=== PATIENT | male | born 1950 ===

== ENCOUNTER 2018-02-11 10:36 | Emergency (ER) | payer OTHER ==
[2018-02-11 10:36] VITALS: BMI 27.2
[2018-02-11 12:09] LABS: BASO % 0.4 % (0.0-2.0); EOS # 0.6 K/uL (0.0-0.7); EOS % 5.5 % (0.0-4.0); LYMPH % 19.4 % (20.0-40.0); MEAN CELL VOLUME 88.4 fL (80.0-94.0); MEAN CORPUSCULAR HEMOGLOBIN 29.9 pg (27.0-31.0); MEAN CORPUSCULAR HGB CONC 33.9 g/dL (33.0-37.0); MEAN PLATELET VOLUME 9.2 fL (7.2-11.7); MONO # 0.8 K/uL (0.0-0.8); MONO % 7.4 % (0.0-10.0); NEUT % 67.3 % (50.0-75.0); NRBC % 0.1 % (0.0-2.0); RBC 4.33 Mil/uL (4.40-5.90); WHITE BLOOD COUNT 10.5 K/uL (4.8-10.8)
[2018-02-11 12:11] LABS: SQUAMOUS EPITHIAL 1 /hpf (0-5); URINE BILIRUBIN NEGATIVE (NEGATIVE); URINE BLOOD 1+ (NEGATIVE); URINE CLARITY Clear (Clear); URINE COLOR Yellow (YELLOW); URINE GLUCOSE (UA) NORMAL (Normal); URINE LEUKOCYTE ESTERASE NEG Leu/uL (Negative); URINE PROTEIN NEGATIVE (NEGATIVE); URINE UROBILINOGEN NORMAL mg/dL (0.2-1.0)
[2018-02-11 12:23] LABS: ALB/GLOB RATIO 1.1 (1.0-2.1); ALBUMIN 3.8 g/dL (3.5-5.0); ALT/SGPT 23 U/L (21-72); AST/SGOT 24 U/L (17-59); BLOOD UREA NITROGEN 17 mg/dL (9-20); GFR NON-AFRICAN AMERICAN > 60; LIPASE 54 U/L (23-300)
[2018-02-11 12:50] VITALS: BP 149/95; PULSE 62; RESP 18; TEMP 98.4; O2SAT 98
--- NOTE | 2018-02-11 12:56 | RAD ---
Chest x-ray single frontal view HISTORY: Abdominal pain. Comparison: None available. FINDINGS: Biapical pleural thickening with upper lobe granulomatous changes. Prominent diffuse increased interstitial lung markings suggestive for edema and or infiltrate. Enlarged ectatic aorta. Cardiomegaly. Degenerative changes in the spine and shoulders. Impression: Biapical pleural thickening with upper lobe granulomatous changes. Prominent diffuse increased interstitial lung markings suggestive for edema and or infiltrate. Enlarged ectatic aorta. Cardiomegaly.
--- NOTE | 2018-02-11 13:35 | C.PDOC ---
History Of Present Illness 67 year old male, whose past medical history includes diabetes and hypertension, presents to the ED for evaluation of diffuse abdominal pain and diarrhea which began around 5 days ago. Patient states that anything he eats, goes right past him. Patient also reports intermittent cough for two months. Patient also reports generalized body aches, which are relieved after taking Ibuprofen. Patient denies fever, chills, nausea, vomiting, or past surgical history. Time Seen by Provider: 02/11/18 10:49 Chief Complaint (Nursing): Abdominal Pain History Per: Patient History/Exam Limitations: no limitations Onset/Duration Of Symptoms: Days (5) Current Symptoms Are (Timing): Still Present Location Of Pain/Discomfort: Diffuse Radiation Of Pain To:: None Quality Of Discomfort: "Pain" Associated Symptoms: Diarrhea. denies: Fever, Chills, Nausea, Vomiting Additional History Per: Patient Past Medical History Reviewed: Historical Data, Nursing Documentation, Vital Signs Vital Signs: Last Vital Signs Temp 98.4 F 02/11/18 12:49 Pulse 62 02/11/18 12:49 Resp 18 02/11/18 12:49 BP 149/95 H 02/11/18 12:49 Pulse Ox 98 02/11/18 12:49 - Medical History PMH: Benign Prostatic Hyperplasia, Diabetes, HTN Surgical History: No Surg Hx Family History: States: Unknown Family Hx - Social History Hx Tobacco Use: No Hx Alcohol Use: No Hx Substance Use: No - Immunization History Hx Tetanus Toxoid Vaccination: No Hx Influenza Vaccination: No Hx Pneumococcal Vaccination: No Review Of Systems Constitutional: Negative for: Fever, Chills Respiratory: Positive for: Cough Gastrointestinal: Positive for: Abdominal Pain (diffuse ), Diarrhea. Negative for: Nausea, Vomiting Musculoskeletal: Positive for: Other (generalized body aches ) Physical Exam - Physical Exam Appears: Non-toxic, No Acute Distress Skin: Normal Color, Warm, Dry Head: Atraumatic, Normacephalic Eye(s): bilateral: Normal Inspection Oral Mucosa: Moist Neck: Supple Chest: Symmetrical, No Deformity, No Tenderness Cardiovascular: Rhythm Regular, No Murmur Respiratory: Normal Breath Sounds, No Rales, No Rhonchi, No Wheezing Gastrointestinal/Abdominal: Soft, No Tenderness, No Guarding, No Rebound Extremity: Normal ROM, Capillary Refill (less than 2 seconds ) Neurological/Psych: Oriented x3, Normal Speech, Normal Cognition ED Course And Treatment - Laboratory Results Result Diagrams: 02/11/18 12:03 02/11/18 12:03 O2 Sat by Pulse Oximetry: 98 (on RA) Pulse Ox Interpretation: Normal - Other Rad CXR X-Ray: Viewed By Me, Read By Radiologist Interpretation: Chest x-ray single frontal view. HISTORY: Abdominal pain. Comparison: None available. FINDINGS: Biapical pleural thickening with upper lobe granulomatous changes. Prominent diffuse increased interstitial lung markings suggestive for edema and or infiltrate. Enlarged ectatic aorta. Cardiomegaly. Degenerative changes in the spine and shoulders. Impression: Biapical pleural thickening with upper lobe granulomatous changes. Prominent diffuse increased interstitial lung markings suggestive for edema and or infiltrate. Enlarged ectatic aorta. Cardiomegaly. Medical Decision Making Medical Decision Making: Progress: Bloodwork, urinalysis, CXR ordered and reviewed. On reassessment, patient is resting comfortably, showing no signs of distress and is stable for discharge. Patient is advised to fill his prescriptions and to follow up with clinic within 1-2 days for further evaluation. Advised to return to the ED if symptoms persist or worsen. Disposition - Disposition Referrals: [facility] [Outside] Disposition: HOME/ ROUTINE Disposition Time: 13:30 Condition: STABLE Additional Instructions: Follow up with the medical doctor within 1-2 days. Return if worsened. 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 - Scribe Statement The provider has reviewed the documentation as recorded by the Scribe (Kelsey Mejia) All medical record entries made by the Scribe were at my direction and personally dictated by me. I have reviewed the chart and agree that the record accurately reflects my personal performance of the history, physical exam, medical decision making, and the department course for this patient. I have also personally directed, reviewed, and agree with the discharge instructions and disposition.
== END 2018-02-11 13:46 | disposition home or self-care (01) ==
LOC: C.ER 10:36
DX: B34.9 Viral infection, unspecified (principal); R19.7 Diarrhea, unspecified

== ENCOUNTER 2018-03-19 11:32 | Inpatient (IN) | payer MEDICAID, OTHER ==
[2018-03-19 11:32] VITALS: BMI 27.2
[2018-03-19 12:15] LABS: BASO % 0.5 % (0.0-2.0); EOS # 0.4 K/uL (0.0-0.7); EOS % 5.5 % (0.0-4.0); HEMOGLOBIN 13.6 g/dL (12.0-18.0); LYMPH # 1.7 K/uL (1.0-4.3); LYMPH % 21.4 % (20.0-40.0); MEAN CELL VOLUME 89.6 fL (80.0-94.0); MEAN CORPUSCULAR HEMOGLOBIN 29.9 pg (27.0-31.0); MEAN CORPUSCULAR HGB CONC 33.4 g/dL (33.0-37.0); MEAN PLATELET VOLUME 8.9 fL (7.2-11.7); MONO # 0.4 K/uL (0.0-0.8); MONO % 5.6 % (0.0-10.0); NEUT # 5.3 K/uL (1.8-7.0); RBC 4.55 Mil/uL (4.40-5.90); RED CELL DISTRIBUTION WIDTH 13.6 % (11.5-14.5); WHITE BLOOD COUNT 7.8 K/uL (4.8-10.8)
[2018-03-19 12:27] LABS: ALB/GLOB RATIO 1.2 (1.0-2.1); ALBUMIN 4.2 g/dL (3.5-5.0); ALT/SGPT 14 U/L (21-72); AST/SGOT 20 U/L (17-59); BLOOD UREA NITROGEN 17 mg/dL (9-20); CALCIUM 9.1 mg/dl (8.6-10.4); GFR NON-AFRICAN AMERICAN > 60
[2018-03-19 12:39] LABS: CK-MB 1.43 ng/mL (0.0-3.38)
--- NOTE | 2018-03-19 12:50 | C.PDOC ---
History Of Present Illness 67yo male, with no past medical history, comes to ER reporting chest pain, cough, for the past 2 weeks. He also reports associated generalized weakness. Patient otherwise denies any fever, chills, headache, throat pain, abdominal kirk n, vomiting or diarrhea. No additional complaints. PMD: None <Nan Auguste - Last Filed: 03/19/18 17:57> History Per: Patient History/Exam Limitations: no limitations Onset/Duration Of Symptoms: Persistent (2 weeks) Current Symptoms Are (Timing): Still Present Quality: "Pain" Associated Symptoms: denies: Nausea, Dyspnea, Diaphoresis, Syncope Additional History Per: Patient <Nan Auguste - Last Filed: 03/19/18 17:57> <Dakotah Mathew - Last Filed: 03/20/18 02:01> Time Seen by Provider: 03/19/18 11:55 Chief Complaint (Nursing): Chest Pain Past Medical History Reviewed: Historical Data, Nursing Documentation, Vital Signs Vital Signs: Last Vital Signs Temp 97.5 F L 03/19/18 11:41 Pulse 74 03/19/18 11:41 Resp 20 03/19/18 11:41 BP 152/101 H 03/19/18 11:41 Pulse Ox 97 03/19/18 11:41 - Medical History PMH: Benign Prostatic Hyperplasia, Diabetes, HTN Surgical History: No Surg Hx Family History: States: No Known Family Hx - Social History Hx Tobacco Use: No Hx Alcohol Use: No Hx Substance Use: No - Immunization History Hx Tetanus Toxoid Vaccination: No Hx Influenza Vaccination: No Hx Pneumococcal Vaccination: No <Nan Auguste - Last Filed: 03/19/18 17:57> Vital Signs: Last Vital Signs Temp 98.2 F 03/19/18 17:11 Pulse 57 L 03/19/18 17:11 Resp 14 03/19/18 17:11 BP 148/84 03/19/18 17:11 Pulse Ox 97 03/19/18 17:59 <Dakotah Mathew - Last Filed: 03/20/18 02:01> Review Of Systems Except As Marked, All Systems Reviewed And Found Negative. Constitutional: Positive for: Malaise. Negative for: Fever, Chills Cardiovascular: Positive for: Chest Pain Respiratory: Positive for: Cough. Negative for: Shortness of Breath Gastrointestinal: Negative for: Nausea, Vomiting, Abdominal Pain Neurological: Negative for: Headache <Nan Auguste - Last Filed: 03/19/18 17:57> Physical Exam - Physical Exam Appears: Non-toxic, No Acute Distress Skin: Normal Color Head: Normacephalic Eye(s): bilateral: Normal Inspection Oral Mucosa: Moist Neck: Normal ROM Chest: Symmetrical Cardiovascular: Rhythm Regular Respiratory: Normal Breath Sounds, No Rales, No Rhonchi, No Wheezing Gastrointestinal/Abdominal: Normal Exam, Soft Extremity: Normal ROM Neurological/Psych: Oriented x3 <Nan Auguste - Last Filed: 03/19/18 17:57> ED Course And Treatment - Laboratory Results Result Diagrams: 03/19/18 12:10 03/19/18 12:10 O2 Sat by Pulse Oximetry: 97 (RA) Pulse Ox Interpretation: Normal - Other Rad CXR X-Ray: Read By Radiologist Interpretation: FINDINGS: LINES AND TUBES: None. LUNG AND PLEURA: The lungs are hyperinflated and there is peribronchial thickening with chronic changes in both lungs. There is diffuse interstitial thickening in the lungs there is linear atelectasis/scarring in the mid lungs. No pleural effusion or pneumothorax. There is biapical pleural thickening. HEART AND MEDIASTINUM: The heart is not enlarged. No aortic atherosclerotic calcification present. The hilar and mediastinal contours are within normal limits. SKELETAL STRUCTURES: The bony structures are within normal limits for the patient's age. There is an old fracture deformity in the left upper lateral thoracic ribs. VISUALIZED UPPER ABDOMEN: Normal. OTHER FINDINGS: None. IMPRESSION: Diffuse interstitial thickening in the lungs which may represent acute interstitial pneumonitis, lymphangitis carcinomatosis or nonspecific interstitial lung disease. Background of COPD. - CT Scan/US CT chest Other Rad Studies (CT/US): Read By Radiologist, Radiology Report Reviewed CT/US Interpretation: Accession No. : [id number]. Patient Name / ID : UMU MALHOTRA / [id number]. Exam Date : 03/19/2018 14:45:06 ( Approved ). Study Comment : Sex / Age : M / 67Y. Creator : Dian Woodard. Dictator : Tran Duffy MD. Physician Intensivist : Children'S Aide : Tran Duffy MD. Approver2 : Report Date : 03/19/2018 15:10:26. My Comment : . Date of service: 03/19/2018. PROCEDURE: CT Chest with contrast. HISTORY: congestion/pain/abnormal CXR. COMPARISON: 02/04/2017, 11/11/2016 and 03/02/2015. TECHNIQUE: Contiguous axial images were obtained through the chest with intravenous contrast enhancement. Sagittal and coronal reconstructions were performed. IV contrast: 100 mL Visipaque 320. Radiation dose: Total exam DLP = 484.66 mGy-cm. This CT exam was performed using one or more of the following dose reduction techniques: Automated exposure control, adjustment of the mA and/or kV according to patient size, and/or use of iterative reconstruction technique. FINDINGS: LUNGS: There is a stable 6 mm subpleural nodule in the left upper lobe (series 3, image 41). There are low lung volumes. There is centrilobular emphysema in the upper lobes. There is ground-glass opacity in both lungs and peripheral architectural distortion with peripheral reticular opacities and honeycombing in the peripheral left upper lobe. There are large bullous changes in the left lung base. There is coarse large calcification in the left lower lobe and small calcified granulomas more medially in the left lower lobe. There is interval resolution of spiculated area in the lingula likely focal atelectasis.. MEDIASTINUM: Unremarkable thoracic aorta. No aneurysm or dissection. There is mild cardiomegaly. Main pulmonary artery unremarkable. No vascular congestion. Subcentimeter mediastinal lymph nodes are likely reactive in etiology.. No aortic atherosclerotic calcification or mural plaque present. PLEURA: No pleural fluid. No pneumothorax. BONES: No fracture. No destructive lesion. UPPER ABDOMEN: Grossly unremarkable. OTHER FINDINGS: None. IMPRESSION: Redemonstration of stable findings in the lungs most compatible with centrilobular emphysema in the upper lobes with component of pulmonary fibrosis. No acute findings Progress Note: Labs, EKG and CXR ordered. 1344: CXR reviewed with abnormal findings, CT Chest ordered. Case was d/w Hospitalist concrete hopper operator who accepted patient to [place] for observation. <Nan Auguste - Last Filed: 03/19/18 17:57> - Laboratory Results Result Diagrams: 03/19/18 21:03 03/19/18 21:03 <PriyankaDakotah - Last Filed: 03/20/18 02:01> Critical Care Time - Critical Care Note Total Time (in mins): 45 Documented critical care: time excludes all time spent performing seperately billable procedures. <PriyankaDakotah - Last Filed: 03/20/18 02:01> Medical Decision Making Medical Decision Makin Provider called to bedside while compressions in progress. Patient intubated successfully; good air entry bilaterally post-intubation. ACLS protocol followed, patient given 3 doses of epinephrine, and 300mg of Amio dorone. After 3rd dose of Epinephrine V-fib was noted and with 200J defibrilation, pulse was regained with good cardiac wall motion on bedside US. Bedside CXR ordered. EKG ordered, patient placed on ventilator. ABG ordered. Fentanyl for sedation ordered. EKG w/ Vtach: Amio drip reccomended to Medicine team: pt was given 300mg push during code. Dr. Dawson at bedside, and to reassume care of patient, ICU consult placed by medicine. 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 - Scribe Statement The provider has reviewed the documentation as recorded by the Blayne Stacy Provider Attestation: All medical record entries made by the Blayne were at my direction and personally dictated by me. I have reviewed the chart and agree that the record accurately reflects my personal performance of the history, physical exam, medical decision making, and the department course for this patient. I have also personally directed, reviewed, and agree with the discharge instructions and disposition. <Nan Auguste - Last Filed: 03/19/18 17:57> Decision To Admit - Pt Status Changed To: Hospital Disposition Of: Observation - . Bed Request Type: Regular Admitting Physician: Nora Blunt <Nan Auguste - Last Filed: 03/19/18 17:57> <Dakotah Mathew - Last Filed: 03/20/18 02:01> - . Patient Diagnosis: COPD (chronic obstructive pulmonary disease), Dyspnea Procedure: Intubation - Time Performed Time Performed: 18:37 - Time Out Time Out: Side verified, Site verified, Patient ID confirmed - Consent Obtained Consent obtained: Emergent consent implied - Performed By Performed by: Attending Physician - Indications Indication(s):: Cardiac arrest - Method Method:: Oral-Laryngoscopy - Rapid Sequence Intubation Anesthetic:: Other (none) - Tube type Tube type:: Endotracheal tube (7.5) Number of attempts:: 1 Depth measured at lip: cm: 24 - Confirmation Confirmation: Direct visual.of intubate, End-tidal CO2 positive, Bilat. breath sounds, No epigastric gurgle - Post-intubation CXR Post-intubation CXR: Tube in good position <Dakotah Mathew - Last Filed: 03/20/18 02:01>
--- NOTE | 2018-03-19 13:27 | RAD ---
Date of service: 03/19/2018 HISTORY: Chest pain COMPARISON: No prior. TECHNIQUE: Chest PA and lateral FINDINGS: LINES AND TUBES: None. LUNG AND PLEURA: The lungs are hyperinflated and there is peribronchial thickening with chronic changes in both lungs. There is diffuse interstitial thickening in the lungs there is linear atelectasis/scarring in the mid lungs. No pleural effusion or pneumothorax. There is biapical pleural thickening. HEART AND MEDIASTINUM: The heart is not enlarged. No aortic atherosclerotic calcification present. The hilar and mediastinal contours are within normal limits. SKELETAL STRUCTURES: The bony structures are within normal limits for the patient's age. There is an old fracture deformity in the left upper lateral thoracic ribs. VISUALIZED UPPER ABDOMEN: Normal. OTHER FINDINGS: None. IMPRESSION: Diffuse interstitial thickening in the lungs which may represent acute interstitial pneumonitis, lymphangitis carcinomatosis or nonspecific interstitial lung disease. Background of COPD.
[2018-03-19] MEDS ORDERED: Albuterol-Ipratrop 3 mg / 0.5 (3 ml) UD IH STA (13:45)
[2018-03-19] MEDS ORDERED: Albuterol 0.083% Inhal Sol (2.5 mg/3 mL) UD INH STA (13:45)
[2018-03-19] MEDS ORDERED: Iodixanol 320 MG/ML 100 ML BOTTLE IV ONE (14:15)
--- NOTE | 2018-03-19 17:03 | CT ---
Date of service: 03/19/2018 PROCEDURE: CT Chest with contrast HISTORY: congestion/pain/abnormal CXR COMPARISON: 02/04/2017, 11/11/2016 and 03/02/2015. TECHNIQUE: Contiguous axial images were obtained through the chest with intravenous contrast enhancement. Sagittal and coronal reconstructions were performed. IV contrast: 100 mL Visipaque 320 Radiation dose: Total exam DLP = 484.66 mGy-cm. This CT exam was performed using one or more of the following dose reduction techniques: Automated exposure control, adjustment of the mA and/or kV according to patient size, and/or use of iterative reconstruction technique. FINDINGS: LUNGS: There is a stable 6 mm subpleural nodule in the left upper lobe (series 3, image 41). There are low lung volumes. There is centrilobular emphysema in the upper lobes. There is ground-glass opacity in both lungs and peripheral architectural distortion with peripheral reticular opacities and honeycombing in the peripheral left upper lobe. There are large bullous changes in the left lung base. There is coarse large calcification in the left lower lobe and small calcified granulomas more medially in the left lower lobe. There is interval resolution of spiculated area in the lingula likely focal atelectasis.. MEDIASTINUM: Unremarkable thoracic aorta. No aneurysm or dissection. There is mild cardiomegaly. Main pulmonary artery unremarkable. No vascular congestion. Subcentimeter mediastinal lymph nodes are likely reactive in etiology.. No aortic atherosclerotic calcification or mural plaque present. PLEURA: No pleural fluid. No pneumothorax. BONES: No fracture. No destructive lesion. UPPER ABDOMEN: Grossly unremarkable. OTHER FINDINGS: None. IMPRESSION: Redemonstration of stable findings in the lungs most compatible with centrilobular emphysema in the upper lobes with component of pulmonary fibrosis. No acute findings.
[2018-03-19] MEDS ORDERED: Glucagon Recombinant 1 mg Inj IM PRN (18:30)
[2018-03-19] MEDS ORDERED: Dextrose 50% SYRINGE Inj (50 ml) IV PRN (18:30)
--- NOTE | 2018-03-19 18:37 | CP.PCM.HP ---
<Aleah Killian - Last Filed: 03/19/18 19:35> History of Present Illness - History of Present Illness History of Present Illness: cc: "I can't breath" Mr. Mejia is a 67 year old male PMH HTN, DM, pulm fibrosis came in for 2 months of SOB worsening over the last week. He would have come in sooner but only regained [facility] today. He is a known patient to the Clinic, but preferred to come to through the ED. Denies cough, fever, chills, nausea, vomiting, diarrhea. He can only exert himself for 2 blocks at a time and has SOB on exertion. After interview was over around 1820, patient status changed. Prior to transport to the med/surg floor, patient coded in the ED at 1837. He was noted to be a wide complex VTach before becoming pulseless and CPR initiated. He was shocked at 200, had 4 doses of epi, and 300 bolus of amiodarone. Patient admission switched to ICU. PMD: [facility] in the [facility] PMH: HTN, DM, pulm fibrosis Med: Metformin 500 po bid, Lisinopril 5mg po daily All: NKDA PSxHx: cystoscopy FamHx: denies SocHx: former smoker, chews tobacco. Social EtOH drinker, last drink New Years. Denies illicit drug use. Lives alone, all family in [facility]. Unable to hold job, currently not working. Present on Admission - Present on Admission Any Indicators Present on Admission: No Review of Systems - Constitutional Constitutional: absent: Chills, Excessive Sweating, Fatigue, Fever - EENT Eyes: absent: Blurred Vision, Diplopia, Requires Corrective Lenses Ears: absent: Decreased Hearing, Ear Discharge, Tinnitus Nose/Mouth/Throat: absent: Nasal Congestion, Nasal Trauma, Dysphagia, Odynophagia - Cardiovascular Cardiovascular: Dyspnea on Exertion. absent: Chest Pain, Chest Pain with Activity, Irregular Heart Rhythm, Lightheadedness, Palpitations, Syncope - Respiratory Respiratory: absent: Cough, Dyspnea, Wheezing - Gastrointestinal Gastrointestinal: absent: Bloating, Constipation, Diarrhea, Dyspepsia, Nausea, Odynophagia, Vomiting - Genitourinary Genitourinary: absent: Dysuria, Urinary Frequency, Urinary Hesitance - Musculoskeletal Musculoskeletal: absent: Atrophy, Muscle Cramps, Numbness, Stiffness, Tingling - Integumentary Integumentary: absent: Bleeding Lesions, Rash, Sores, Unusual Bruising - Neurological Neurological: absent: Confusion, Dizziness, Numbness, Headaches, Syncope, Tingling - Psychiatric Psychiatric: absent: Anxiety, Depression, Homicidal Ideation, Suicidal Ideation - Hematologic/Lymphatic Hematologic: absent: Easy Bleeding, Easy Bruising Past Patient History - Past Social History Smoking Status: Former Smoker Chewing Tobacco Use: Yes Alcohol: Social Drugs: Denies Home Situation {Lives}: Alone - CARDIAC Hx Hypertension: Yes - ENDOCRINE/METABOLIC Hx Endocrine Disorders: Yes Hx Diabetes Mellitus Type 2: Yes - GENITOURINARY/GYNECOLOGICAL Hx Genitourinary Disorders: Yes - PSYCHIATRIC Hx Substance Use: No - SURGICAL HISTORY Hx Surgeries: No - ANESTHESIA Hx Anesthesia: No Meds Allergies/Adverse Reactions: Allergies Allergy/AdvReac Type Severity Reaction Status Date / Time No Known Allergies Allergy Verified 12/12/15 11:59 Physical Exam - Constitutional Appears: Well, No Acute Distress, Chronically Ill - Head Exam Head Exam: ATRAUMATIC, NORMOCEPHALIC - Eye Exam Eye Exam: EOMI, Normal appearance, PERRL - ENT Exam ENT Exam: Mucous Membranes Moist - Neck Exam Neck exam: Negative for: Lymphadenopathy, Normal Inspection - Respiratory Exam Respiratory Exam: Decreased Breath Sounds, Clear to Auscultation Bilateral. absent: Accessory Muscle Use, Rales, Rhonchi, Wheezes - Cardiovascular Exam Cardiovascular Exam: REGULAR RHYTHM, +S1, +S2. absent: Gallop, Rubs, Systolic Murmur - GI/Abdominal Exam GI & Abdominal Exam: Normal Bowel Sounds, Soft. absent: Firm, Guarding, Rebound, Rigid, Tenderness - Extremities Exam Extremities exam: Positive for: normal capillary refill, pedal pulses present. Negative for: calf tenderness Additional comments: peripheral pulses palpable bilaterally (radial, PT) - Back Exam Back exam: absent: CVA tenderness (L), CVA tenderness (R) - Neurological Exam Neurological exam: Alert, CN II-XII Intact, Normal Gait, Oriented x3 - Psychiatric Exam Psychiatric exam: Normal Affect, Normal Mood - Skin Skin Exam: Dry, Intact, Normal Color, Warm Results - Vital Signs Recent Vital Signs: Last Vital Signs Temp 98.2 F 03/19/18 17:11 Pulse 57 L 03/19/18 17:11 Resp 14 03/19/18 17:11 BP 148/84 03/19/18 17:11 Pulse Ox 97 03/19/18 17:59 - Labs Result Diagrams: 03/19/18 12:10 03/19/18 12:10 Labs: Laboratory Results - last 24 hr 03/19/18 03/19/18 12:10 12:10 WBC 7.8 RBC 4.55 Hgb 13.6 Hct 40.7 MCV 89.6 MCH 29.9 MCHC 33.4 RDW 13.6 Plt Count 248 MPV 8.9 Neut % (Auto) 67.0 Lymph % (Auto) 21.4 Moca % (Auto) 5.6 Eos % (Auto) 5.5 H Baso % (Auto) 0.5 Neut # (Auto) 5.3 Lymph # (Auto) 1.7 Moca # (Auto) 0.4 Eos # (Auto) 0.4 Baso # (Auto) 0.0 Sodium 137 Potassium 4.4 Chloride 107 Carbon Dioxide 21 L Anion Gap 13 BUN 17 Creatinine 0.8 Est GFR ( Amer) > 60 Est GFR (Non-Af Amer) > 60 Random Glucose 107 Calcium 9.1 Total Bilirubin 0.3 AST 20 ALT 14 L D Alkaline Phosphatase 94 Total Creatine Kinase 55 CK-MB (Mass) 1.43 Troponin I < 0.0120 Total Protein 7.6 Albumin 4.2 Globulin 3.4 Albumin/Globulin Ratio 1.2 Assessment & Plan - Assessment and Plan (Free Text) Assessment: 67yo M PMH HTN, DM, pulm fibrosis, emphysema admitted for worsening SOB. Patient status declined and was a Code Blue in the ED. Admission moved to ICU. Plan: Cardiac Arrest ROSC achieved after about 20 minutes - Crit Care consulted: Dr. Gonzáles - Cardio consulted: Dr. Pizarro Bronchitis - patient complains of chronic pleuritic chest pain - hasn't followed up in the the Clinic since 03/2017 for pulm history issues Pulm Fibrosis - CXR (03/19): Diffuse interstitial thickening in the lungs which may represent acute interstitial pneumonitis, lymphangitis carcinomatosis or nonspecific interstitial lung disease. - CT Chest (03/19): Redemonstration of stable findings in the lungs most compatible with centrilobular emphysema in the upper lobes with component of pulmonary fibrosis. No acute findings. - Pulm consulted: Dr. Salazar Hypertension - held home Lisinopril 5mg po daily - monitor vitals Diabetes Mellitus - held home metformin 500mg po BID - Accuchecks q6 - ISS - hypoglycemia protocol PPx - DVT: held chemical AC, SCDs - GI: Protonix 40 IVP daily - Diet: NPO d/w Dr. Eunice Killian PGY-1 - Date & Time Date: 03/19/18 Time: 19:00 <Lynette Dawson - Last Filed: 03/20/18 16:26> Results - Vital Signs Recent Vital Signs: Last Vital Signs Temp 98.8 F 03/20/18 12:00 Pulse 68 03/20/18 14:52 Resp 22 03/20/18 14:52 BP 150/90 03/20/18 14:52 Pulse Ox 100 03/20/18 14:52 - Labs Result Diagrams: 03/20/18 05:49 03/20/18 05:49 Labs: Laboratory Results - last 24 hr 03/19/18 03/19/18 03/19/18 18:45 19:45 21:03 WBC RBC Hgb Hct MCV MCH MCHC RDW Plt Count MPV Neut % (Auto) Lymph % (Auto) Moca % (Auto) Eos % (Auto) Baso % (Auto) Neut # (Auto) Lymph # (Auto) Moca # (Auto) Eos # (Auto) Baso # (Auto) Neutrophils % (Manual) Band Neutrophils % Lymphocytes % (Manual) Monocytes % (Manual) Platelet Estimate Poikilocytosis (manual Ovalocytes ESR PT INR APTT Puncture Site Right radial pCO2 33 L pO2 259 H HCO3 8.5 L* ABG pH 7.03 L* ABG Total CO2 9.7 L ABG O2 Saturation 100.0 H ABG Base Excess -21.2 L Bran Test Na ABG Potassium A-a O2 Difference 413.0 Respiratory Index 1.6 Glucose Lactate Vent Mode Mechanical Rate FiO2 100.0 Tidal Volume 500 PEEP 5 Crit Value Called To Er attending Crit Value Called By Eliazar Crit Value Read Back Y Blood Gas Notified Time 1904 Sodium 136 Potassium 4.1 Chloride 109 H Carbon Dioxide 15 L Anion Gap 16 BUN 16 Creatinine 1.0 Est GFR ( Amer) > 60 Est GFR (Non-Af Amer) > 60 POC Glucose (mg/dL) 83 Random Glucose 211 H D Calcium 8.2 L Phosphorus Magnesium Total Bilirubin 0.6 AST 170 H D ALT 122 H D Alkaline Phosphatase 100 Total Creatine Kinase 222 H CK-MB (Mass) 6.85 H Troponin I 1.2300 H* Total Protein 6.7 Albumin 3.6 Globulin 3.1 Albumin/Globulin Ratio 1.2 Triglycerides Cholesterol LDL Cholesterol Direct HDL Cholesterol TSH 3rd Generation Arterial Blood Potassium Urine Color Urine Clarity Urine pH Ur Specific Ona Urine Protein Urine Glucose (UA) Urine Ketones Urine Blood Urine Nitrate Urine Bilirubin Urine Urobilinogen Ur Leukocyte Esterase Urine RBC (Auto) Ur Squamous Epith Cells Urine Bacteria Urine Opiates Screen Urine Methadone Screen Ur Barbiturates Screen Ur Phencyclidine Scrn Ur Amphetamines Screen U Benzodiazepines Scrn U Oth Cocaine Metabols U Cannabinoids Screen Alcohol, Quantitative 03/19/18 03/19/18 03/20/18 21:03 22:49 00:00 WBC 24.6 H D RBC 4.33 L Hgb 12.5 Hct 39.5 MCV 91.0 MCH 28.8 MCHC 31.6 L RDW 14.1 Plt Count 246 MPV 8.8 Neut % (Auto) 80.9 H Lymph % (Auto) 14.2 L Moca % (Auto) 3.4 Eos % (Auto) 1.3 Baso % (Auto) 0.2 Neut # (Auto) 19.9 H Lymph # (Auto) 3.5 Moca # (Auto) 0.8 Eos # (Auto) 0.3 Baso # (Auto) 0.0 Neutrophils % (Manual) Band Neutrophils % Lymphocytes % (Manual) Monocytes % (Manual) Platelet Estimate Poikilocytosis (manual Ovalocytes ESR PT INR APTT Puncture Site Lr pCO2 30 L pO2 267 H HCO3 17.4 L ABG pH 7.31 L ABG Total CO2 16.0 L ABG O2 Saturation 99.9 H ABG Base Excess -9.8 L Bran Test Unable ABG Potassium 3.8 A-a O2 Difference 123.0 Respiratory Index 0.5 Glucose 225 H Lactate 1.4 Vent Mode Prvc Mechanical Rate 24 FiO2 60.0 Tidal Volume 500 PEEP 5 Crit Value Called To Crit Value Called By Crit Value Read Back Blood Gas Notified Time Sodium 138.0 Potassium Chloride 114.0 H Carbon Dioxide Anion Gap BUN Creatinine Est GFR ( Amer) Est GFR (Non-Af Amer) POC Glucose (mg/dL) 224 H Random Glucose Calcium Phosphorus Magnesium Total Bilirubin AST ALT Alkaline Phosphatase Total Creatine Kinase CK-MB (Mass) Troponin I Total Protein Albumin Globulin Albumin/Globulin Ratio Triglycerides Cholesterol LDL Cholesterol Direct HDL Cholesterol TSH 3rd Generation Arterial Blood Potassium 3.8 Urine Color Urine Clarity Urine pH Ur Specific Ona Urine Protein Urine Glucose (UA) Urine Ketones Urine Blood Urine Nitrate Urine Bilirubin Urine Urobilinogen Ur Leukocyte Esterase Urine RBC (Auto) Ur Squamous Epith Cells Urine Bacteria Urine Opiates Screen Urine Methadone Screen Ur Barbiturates Screen Ur Phencyclidine Scrn Ur Amphetamines Screen U Benzodiazepines Scrn U Oth Cocaine Metabols U Cannabinoids Screen Alcohol, Quantitative 03/20/18 03/20/18 03/20/18 04:35 05:26 05:49 WBC 14.8 H RBC 4.11 L Hgb 11.9 L Hct 37.2 MCV 90.6 MCH 28.8 MCHC 31.8 L RDW 14.0 Plt Count 199 MPV 8.6 Neut % (Auto) 89.4 H Lymph % (Auto) 5.3 L Moca % (Auto) 5.2 Eos % (Auto) 0.0 Baso % (Auto) 0.1 Neut # (Auto) 13.2 H Lymph # (Auto) 0.8 L Moca # (Auto) 0.8 Eos # (Auto) 0.0 Baso # (Auto) 0.0 Neutrophils % (Manual) 84 H Band Neutrophils % 5 H Lymphocytes % (Manual) 5 L Monocytes % (Manual) 6 Platelet Estimate Normal Poikilocytosis (manual Slight Ovalocytes Slight ESR 30 H PT INR APTT Puncture Site Rr pCO2 34 L pO2 115 H HCO3 17.7 L ABG pH 7.29 L ABG Total CO2 17.3 L ABG O2 Saturation 98.9 H ABG Base Excess -9.3 L Bran Test Pos ABG Potassium 3.7 A-a O2 Difference 128.0 Respiratory Index 1.1 Glucose 236 H Lactate 1.1 Vent Mode Prvc Mechanical Rate 24 FiO2 40.0 Tidal Volume 500 PEEP 5 Crit Value Called To Crit Value Called By Crit Value Read Back Blood Gas Notified Time Sodium 139.0 Potassium Chloride 113.0 H Carbon Dioxide Anion Gap BUN Creatinine Est GFR ( Amer) Est GFR (Non-Af Amer) POC Glucose (mg/dL) 239 H Random Glucose Calcium Phosphorus Magnesium Total Bilirubin AST ALT Alkaline Phosphatase Total Creatine Kinase CK-MB (Mass) Troponin I Total Protein Albumin Globulin Albumin/Globulin Ratio Triglycerides Cholesterol LDL Cholesterol Direct HDL Cholesterol TSH 3rd Generation Arterial Blood Potassium 3.7 Urine Color Urine Clarity Urine pH Ur Specific Ona Urine Protein Urine Glucose (UA) Urine Ketones Urine Blood Urine Nitrate Urine Bilirubin Urine Urobilinogen Ur Leukocyte Esterase Urine RBC (Auto) Ur Squamous Epith Cells Urine Bacteria Urine Opiates Screen Urine Methadone Screen Ur Barbiturates Screen Ur Phencyclidine Scrn Ur Amphetamines Screen U Benzodiazepines Scrn U Oth Cocaine Metabols U Cannabinoids Screen Alcohol, Quantitative 03/20/18 03/20/18 03/20/18 05:49 05:49 05:55 WBC RBC Hgb Hct MCV MCH MCHC RDW Plt Count MPV Neut % (Auto) Lymph % (Auto) Moca % (Auto) Eos % (Auto) Baso % (Auto) Neut # (Auto) Lymph # (Auto) Moca # (Auto) Eos # (Auto) Baso # (Auto) Neutrophils % (Manual) Band Neutrophils % Lymphocytes % (Manual) Monocytes % (Manual) Platelet Estimate Poikilocytosis (manual Ovalocytes ESR PT INR APTT Puncture Site pCO2 pO2 HCO3 ABG pH ABG Total CO2 ABG O2 Saturation ABG Base Excess Bran Test ABG Potassium A-a O2 Difference Respiratory Index Glucose Lactate Vent Mode Mechanical Rate FiO2 Tidal Volume PEEP Crit Value Called To Crit Value Called By Crit Value Read Back Blood Gas Notified Time Sodium 136 Potassium 4.0 Chloride 109 H Carbon Dioxide 16 L Anion Gap 15 BUN 23 H Creatinine 1.3 Est GFR ( Amer) > 60 Est GFR (Non-Af Amer) 55 POC Glucose (mg/dL) Random Glucose 232 H Calcium 8.2 L Phosphorus 3.1 Magnesium 1.7 Total Bilirubin 0.8 AST 146 H ALT 103 H Alkaline Phosphatase 95 Total Creatine Kinase 557 H CK-MB (Mass) 16.0 H Troponin I 11.9000 H* Total Protein 6.5 Albumin 3.6 Globulin 3.0 Albumin/Globulin Ratio 1.2 Triglycerides Cholesterol LDL Cholesterol Direct HDL Cholesterol TSH 3rd Generation Arterial Blood Potassium Urine Color Asmita Urine Clarity Hazy Urine pH 5.0 Ur Specific Ona 1.054 H Urine Protein 2+ H Urine Glucose (UA) 1+ H Urine Ketones Negative Urine Blood 1+ H Urine Nitrate Negative Urine Bilirubin Negative Urine Urobilinogen Normal Ur Leukocyte Esterase Neg Urine RBC (Auto) 74 H Ur Squamous Epith Cells 2 Urine Bacteria Occ H Urine Opiates Screen Urine Methadone Screen Ur Barbiturates Screen Ur Phencyclidine Scrn Ur Amphetamines Screen U Benzodiazepines Scrn U Oth Cocaine Metabols U Cannabinoids Screen Alcohol, Quantitative 03/20/18 03/20/18 03/20/18 10:18 10:18 14:33 WBC RBC Hgb Hct MCV MCH MCHC RDW Plt Count MPV Neut % (Auto) Lymph % (Auto) Moca % (Auto) Eos % (Auto) Baso % (Auto) Neut # (Auto) Lymph # (Auto) Moca # (Auto) Eos # (Auto) Baso # (Auto) Neutrophils % (Manual) Band Neutrophils % Lymphocytes % (Manual) Monocytes % (Manual) Platelet Estimate Poikilocytosis (manual Ovalocytes ESR PT INR APTT Puncture Site pCO2 pO2 HCO3 ABG pH ABG Total CO2 ABG O2 Saturation ABG Base Excess Bran Test ABG Potassium A-a O2 Difference Respiratory Index Glucose Lactate Vent Mode Mechanical Rate FiO2 Tidal Volume PEEP Crit Value Called To Crit Value Called By Crit Value Read Back Blood Gas Notified Time Sodium Potassium Chloride Carbon Dioxide Anion Gap BUN Creatinine Est GFR ( Amer) Est GFR (Non-Af Amer) POC Glucose (mg/dL) Random Glucose Calcium Phosphorus Magnesium Total Bilirubin AST ALT Alkaline Phosphatase Total Creatine Kinase CK-MB (Mass) Troponin I 11.2000 H* Total Protein Albumin Globulin Albumin/Globulin Ratio Triglycerides 58 D Cholesterol 135 LDL Cholesterol Direct 91 HDL Cholesterol 31 TSH 3rd Generation 0.60 Arterial Blood Potassium Urine Color Urine Clarity Urine pH Ur Specific Ona Urine Protein Urine Glucose (UA) Urine Ketones Urine Blood Urine Nitrate Urine Bilirubin Urine Urobilinogen Ur Leukocyte Esterase Urine RBC (Auto) Ur Squamous Epith Cells Urine Bacteria Urine Opiates Screen Negative Urine Methadone Screen Negative Ur Barbiturates Screen Negative Ur Phencyclidine Scrn Negative Ur Amphetamines Screen Negative U Benzodiazepines Scrn Negative U Oth Cocaine Metabols Negative U Cannabinoids Screen Negative Alcohol, Quantitative < 10 03/20/18 15:08 WBC RBC Hgb Hct MCV MCH MCHC RDW Plt Count MPV Neut % (Auto) Lymph % (Auto) Moca % (Auto) Eos % (Auto) Baso % (Auto) Neut # (Auto) Lymph # (Auto) Moca # (Auto) Eos # (Auto) Baso # (Auto) Neutrophils % (Manual) Band Neutrophils % Lymphocytes % (Manual) Monocytes % (Manual) Platelet Estimate Poikilocytosis (manual Ovalocytes ESR PT 11.7 INR 1.1 APTT 32 Puncture Site pCO2 pO2 HCO3 ABG pH ABG Total CO2 ABG O2 Saturation ABG Base Excess Bran Test ABG Potassium A-a O2 Difference Respiratory Index Glucose Lactate Vent Mode Mechanical Rate FiO2 Tidal Volume PEEP Crit Value Called To Crit Value Called By Crit Value Read Back Blood Gas Notified Time Sodium Potassium Chloride Carbon Dioxide Anion Gap BUN Creatinine Est GFR ( Amer) Est GFR (Non-Af Amer) POC Glucose (mg/dL) Random Glucose Calcium Phosphorus Magnesium Total Bilirubin AST ALT Alkaline Phosphatase Total Creatine Kinase CK-MB (Mass) Troponin I Total Protein Albumin Globulin Albumin/Globulin Ratio Triglycerides Cholesterol LDL Cholesterol Direct HDL Cholesterol TSH 3rd Generation Arterial Blood Potassium Urine Color Urine Clarity Urine pH Ur Specific Ona Urine Protein Urine Glucose (UA) Urine Ketones Urine Blood Urine Nitrate Urine Bilirubin Urine Urobilinogen Ur Leukocyte Esterase Urine RBC (Auto) Ur Squamous Epith Cells Urine Bacteria Urine Opiates Screen Urine Methadone Screen Ur Barbiturates Screen Ur Phencyclidine Scrn Ur Amphetamines Screen U Benzodiazepines Scrn U Oth Cocaine Metabols U Cannabinoids Screen Alcohol, Quantitative Attending/Attestation - Attestation I have personally seen and examined this patient.: Yes I have fully participated in the care of the patient.: Yes I have reviewed all pertinent clinical information: Yes Notes (Text): This is a 67years cypriot male with history of diabetes,hypertension and pulmonary fibrosis was evaluated for dyspnea and pleuritic in the ER. Patient speaks Gujarati and Eduardo. History translated by translation service at ER. Patient stats that he is having chest pain mostly on his both side of his chest and back during deep breathing. He denies retrosternal chest pain on admission. I asked him what made him to come to Er today. He admitted that he came because his cari care is needed renewal. He has this pleuritic type pain on breathing last two months. He was treated with amoxicillin a month agoe for resp infection. He was having nausea and diarrhea followed by treatment. Denies current nausea and diarrhea. He also has exertion dyspnea for months and its gradually getting worse. Patient denies fever,no cough,no nausea,no vomiting or diarrhea Patient states that he lives alone and his all family is [place]. He is planning to go back to his country. He was here to make money. lately he is not able work.He denies history of heart disease.Denies smoking ,social drinker,chew tobacco We decided to admit him for possible pneumonitis and worsening pulmonary fibros is. Patient was seen by Dr Salazar at ER .Dr Salazar reviewed his Chest CT discussed about plan of care. Patient's initial troponin was normal,initial EKG LBBB which is not new.no fever no leukocytosis When he was about to go to a floor he went into cardiac arrest/code blue called at ER He was resuscitated and intubated. I spoke to Dr Mathew ER physician. He was in asystole initially patient given 3 doses of epinephrine, and 300mg of Amiodorone. After 3rd dose of Epinephrine V-fib was noted and with 200J defibrillation, pulse was regained with good cardiac wall motion on bedside US. Bedside CXR ordered. EKG ordered, patient placed on ventilator. ABG ordered. Fentanyl for sedation ordered. We ordered amiodarone drip I spoke to critical care physician at ER. Patient will be transferred to ICU s oon
--- NOTE | 2018-03-19 20:13 | CP.PCM.CON ---
History of Present Illness - History of Present Illness History of Present Illness: CCM 67 yo male with hx PUlm. Fibrosis /DM /HTN/BPH to ED c/o sob and some pleuritic Chest pain. Pt had CTA neg for PE. While waiting for admission pt found unresponssive and apneic. Asystolic arrest and CPR /ACLS started. Pt intubated Received 3 epi then VF shocked and started on Amiodarone. Pt reportedly being started on Code Freeze protocol. When seen in ED pt unable to give hx. No hx fever/ n /v /d ROS- as noted ALl- NKDA Social- ? occ tob/ ? occ etoh/ no drugs Meds- reviewed FH- Unknown PE T-98.2 P-71 R-20 BP 113/81 Intubated/ labored resp. and biting ETT with sternal depressions during insp.--> improved after bite block Perrl Neck-no jvd Lungs- bilat coarse bs Heart-rr aBd- bs+, soft, no tenderness elicited Ext- no edema Labs,EKG,[id number] A&P s/p Cardiac Arrest- ? arrythmia etiol Pulm. Fibrosis LBBB(old) DM HTN BPH Admit to MICU when bed available optimize vent support maintain optimal lytes repeat labs /lactate/ ABG/ CE ECHO Code Freeze CT Brain DVT & GI prophylaxis Optimize sedation / analgesia Critical care time spent with patient 50 min Past Patient History - Past Social History Smoking Status: Current Some Days Smoker - CARDIAC Hx Hypertension: Yes - ENDOCRINE/METABOLIC Hx Endocrine Disorders: Yes Hx Diabetes Mellitus Type 2: Yes - GENITOURINARY/GYNECOLOGICAL Hx Genitourinary Disorders: Yes - PSYCHIATRIC Hx Substance Use: No - SURGICAL HISTORY Hx Surgeries: No - ANESTHESIA Hx Anesthesia: No Meds Allergies/Adverse Reactions: Allergies Allergy/AdvReac Type Severity Reaction Status Date / Time No Known Allergies Allergy Verified 12/12/15 11:59 - Medications Medications: Current Medications Dextrose (Dextrose 50% Inj) 0 ml IV STAT PRN; Protocol PRN Reason: Hypoglycemia Protocol Dextrose (Glutose 15) 0 gm PO ONCE PRN; Protocol PRN Reason: Hypoglycemia Protocol Glucagon (Glucagen Diagnostic Kit) 0 mg IM STAT PRN; Protocol PRN Reason: Hypoglycemia Protocol Dextrose (Dextrose 5% In Water 1000 Ml) 1,000 mls @ 0 mls/hr IV .Q0M PRN; Protocol PRN Reason: Hypoglycemia Protocol Amiodarone HCl 900 mg/ (Dextrose) 500 mls @ 33.33 mls/hr IV .[id number] ONE; Orestes col Stop: 03/20/18 09:57 Last Admin: 03/19/18 19:21 Dose: 33.33 mls/hr Fentanyl Citrate 2,500 mcg/ (Sodium Chloride) 250 mls @ 15.42 mls/hr IV .[id number] DOUG; Protocol Piperacillin Sod/Tazobactam Sod (Zosyn 3.375 Gm Iv Premix) 3.375 gm in 50 mls @ 100 mls/hr IVPB Q6H DOUG; Protocol Insulin Aspart (Novolog) 0 unit SC Q6 DOUG; Protocol Methylprednisolone (Solu-Medrol) 60 mg IVP TID DOUG Pantoprazole Sodium (Protonix Inj) 40 mg IVP DAILY DOUG Results - Vital Signs Recent Vital Signs: Last Vital Signs Temp 98.2 F 03/19/18 17:11 Pulse 79 03/19/18 19:21 Resp 18 03/19/18 19:21 BP 98/59 L 03/19/18 19:21 Pulse Ox 100 03/19/18 19:21 - Labs Result Diagrams: 03/19/18 21:03 03/19/18 21:03 Labs: Laboratory Results - last 24 hr 03/19/18 03/19/18 03/19/18 12:10 12:10 18:45 WBC 7.8 RBC 4.55 Hgb 13.6 Hct 40.7 MCV 89.6 MCH 29.9 MCHC 33.4 RDW 13.6 Plt Count 248 MPV 8.9 Neut % (Auto) 67.0 Lymph % (Auto) 21.4 Mercer % (Auto) 5.6 Eos % (Auto) 5.5 H Baso % (Auto) 0.5 Neut # (Auto) 5.3 Lymph # (Auto) 1.7 Mercer # (Auto) 0.4 Eos # (Auto) 0.4 Baso # (Auto) 0.0 Sodium 137 Potassium 4.4 Chloride 107 Carbon Dioxide 21 L Anion Gap 13 BUN 17 Creatinine 0.8 Est GFR ( Amer) > 60 Est GFR (Non-Af Amer) > 60 POC Glucose (mg/dL) 83 Random Glucose 107 Calcium 9.1 Total Bilirubin 0.3 AST 20 ALT 14 L D Alkaline Phosphatase 94 Total Creatine Kinase 55 CK-MB (Mass) 1.43 Troponin I < 0.0120 Total Protein 7.6 Albumin 4.2 Globulin 3.4 Albumin/Globulin Ratio 1.2 Assessment & Plan (1) Cardiac arrest Status: Acute (2) Pulmonary fibrosis Status: Chronic (3) HTN (hypertension) Status: Chronic (4) Diabetes Status: Chronic
--- NOTE | 2018-03-19 20:20 | RAD ---
HISTORY: [facility] COMPARISON: Chest x-ray performed 03/19/18 TECHNIQUE: Chest, one view. FINDINGS: Endotracheal tube terminates approximately 3.4 cm above the minnie. 2 left-sided defibrillator pads project over the left chest/upper abdomen. LUNGS: Emphysematous changes. Fibrotic changes re-identified. Overall increased opacification predominantly within the upper lobes raises suspicion for superimposed infection and/or edema. Please note that chest x-ray has limited sensitivity for the detection of pulmonary masses. PLEURA: No significant pleural effusion identified. No definite pneumothorax . CARDIOVASCULAR: Partially obscured cardiomegaly. Atherosclerotic calcifications. Ectatic aorta. Prominence of the mediastinum may be exaggerated by patient obliquity and ectatic aorta however alternatives including adenopathy not excluded. OSSEOUS STRUCTURES: Osseous demineralization. Degenerative changes. VISUALIZED UPPER ABDOMEN: Unremarkable. OTHER FINDINGS: None. IMPRESSION: Emphysematous changes. Fibrotic changes re-identified. Overall increased opacification predominantly within the upper lobes raises suspicion for superimposed infection and/or edema. Partially obscured cardiomegaly. Prominence of the mediastinum may be exaggerated by patient obliquity and ectatic aorta however alternatives including adenopathy not excluded.
[2018-03-19] MEDS ORDERED: Amiodarone 150mg/3 ml vial ONE (21:00)
[2018-03-19 21:07] LABS: BASO % 0.2 % (0.0-2.0); EOS # 0.3 K/uL (0.0-0.7); EOS % 1.3 % (0.0-4.0); HEMOGLOBIN 12.5 g/dL (12.0-18.0); LYMPH # 3.5 K/uL (1.0-4.3); LYMPH % 14.2 % (20.0-40.0); MEAN CORPUSCULAR HEMOGLOBIN 28.8 pg (27.0-31.0); MEAN CORPUSCULAR HGB CONC 31.6 g/dL (33.0-37.0); MEAN PLATELET VOLUME 8.8 fL (7.2-11.7); MONO # 0.8 K/uL (0.0-0.8); MONO % 3.4 % (0.0-10.0); NEUT # 19.9 K/uL (1.8-7.0); NEUT % 80.9 % (50.0-75.0); RBC 4.33 Mil/uL (4.40-5.90); RED CELL DISTRIBUTION WIDTH 14.1 % (11.5-14.5)
[2018-03-19 21:11] LABS: WHITE BLOOD COUNT 24.6 K/uL (4.8-10.8)
[2018-03-19 21:22] LABS: ALB/GLOB RATIO 1.2 (1.0-2.1); ALBUMIN 3.6 g/dL (3.5-5.0); ALT/SGPT 122 U/L (21-72); AST/SGOT 170 U/L (17-59); BLOOD UREA NITROGEN 16 mg/dL (9-20); CALCIUM 8.2 mg/dl (8.6-10.4); GFR NON-AFRICAN AMERICAN > 60
[2018-03-19 21:42] LABS: CK-MB 6.85 ng/mL (0.0-3.38)
[2018-03-19] MEDS ORDERED: (Novolog) Insulin Aspart, Recombinant 100 u/ml 10 ml vial SC SCH (22:00)
[2018-03-19] MEDS: Piperacill/Tazo 3.375gm in Dex 3.375 GM/50 ML BAG IVPB SCH (22:00)
[2018-03-19 22:24] LABS: ARTERIAL BLOOD GAS HCO3 8.5 mmol/L (21-28); ARTERIAL BLOOD GAS PCO2 33 mm/Hg (35-45); ARTERIAL BLOOD GAS PH 7.03 (7.35-7.45); ARTERIAL BLOOD GAS PO2 259 mm/Hg (80-100); ARTERIAL BLOOD GAS TCO2 9.7 mmol/L (22-28)
[2018-03-19] MEDS ORDERED: Piperacillin/Tazobact 3.375 gm 100 ML IVPB ONE (22:47)
[2018-03-19 22:53] LABS: ABG ALLEN TEST UNABLE; ARTERIAL BLOOD GAS HCO3 17.4 mmol/L (21-28); ARTERIAL BLOOD GAS O2 SAT 99.9 % (95-98); ARTERIAL BLOOD GAS PCO2 30 mm/Hg (35-45); ARTERIAL BLOOD GAS PH 7.31 (7.35-7.45); ARTERIAL BLOOD GAS PO2 267 mm/Hg (80-100)
[2018-03-19] MEDS: (Novolog) Insulin Aspart, Recombinant 100 u/ml 10 ml vial SC SCH (23:34)
[2018-03-20] MEDS: (Novolog) Insulin Aspart, Recombinant 100 u/ml 10 ml vial SC SCH ×4 (00:27→17:51)
[2018-03-20] MEDS: Piperacill/Tazo 3.375gm in Dex 3.375 GM/50 ML BAG IVPB SCH ×4 (01:22→18:30)
[2018-03-20 04:44] LABS: ABG ALLEN TEST POS; ARTERIAL BLOOD GAS HCO3 17.7 mmol/L (21-28); ARTERIAL BLOOD GAS O2 SAT 98.9 % (95-98); ARTERIAL BLOOD GAS PCO2 34 mm/Hg (35-45); ARTERIAL BLOOD GAS PH 7.29 (7.35-7.45); ARTERIAL BLOOD GAS PO2 115 mm/Hg (80-100); ARTERIAL BLOOD GAS TCO2 17.3 mmol/L (22-28)
[2018-03-20 05:56] LABS: BASO % 0.1 % (0.0-2.0); HEMOGLOBIN 11.9 g/dL (12.0-18.0); LYMPH # 0.8 K/uL (1.0-4.3); LYMPH % 5.3 % (20.0-40.0); MEAN CELL VOLUME 90.6 fL (80.0-94.0); MEAN CORPUSCULAR HEMOGLOBIN 28.8 pg (27.0-31.0); MEAN CORPUSCULAR HGB CONC 31.8 g/dL (33.0-37.0); MEAN PLATELET VOLUME 8.6 fL (7.2-11.7); MONO # 0.8 K/uL (0.0-0.8); MONO % 5.2 % (0.0-10.0); NEUT # 13.2 K/uL (1.8-7.0); NEUT % 89.4 % (50.0-75.0); PLATELET COUNT 199 K/uL (130-400); RBC 4.11 Mil/uL (4.40-5.90); WHITE BLOOD COUNT 14.8 K/uL (4.8-10.8)
[2018-03-20 06:12] LABS: SQUAMOUS EPITHIAL 2 /hpf (0-5); URINE BACTERIA OCC (<OCC); URINE BILIRUBIN NEGATIVE (NEGATIVE); URINE BLOOD 1+ (NEGATIVE); URINE CLARITY Hazy (Clear); URINE COLOR Amber (YELLOW); URINE GLUCOSE (UA) 1+ mg/dL (Normal); URINE LEUKOCYTE ESTERASE NEG Leu/uL (Negative); URINE PROTEIN 2+ mg/dL (NEGATIVE); URINE UROBILINOGEN NORMAL mg/dL (0.2-1.0)
[2018-03-20 06:24] LABS: ALB/GLOB RATIO 1.2 (1.0-2.1); ALBUMIN 3.6 g/dL (3.5-5.0); ALT/SGPT 103 U/L (21-72); AST/SGOT 146 U/L (17-59); BLOOD UREA NITROGEN 23 mg/dL (9-20); CALCIUM 8.2 mg/dl (8.6-10.4); GFR NON-AFRICAN AMERICAN 55
[2018-03-20 06:31] LABS: TROPONIN I 11.9 ng/mL (0.00-0.120)
[2018-03-20 08:14] LABS: BANDS 5 % (0-2); LYMPHOCYTE 5 % (20-40); MONOCYTE 6 % (0-10); NEUTROPHIL 84 % (50-75); PLATELET ESTIMATE NORMAL (NORMAL); POIKILOCYTOSIS SLIGHT; TOTAL CELLS COUNTED 100
[2018-03-20 08:15] LABS: OVALOCYTES SLIGHT
[2018-03-20 08:51] LABS: ERYTHROCYTE SEDIMENTATION RATE 30 mm/hr (0-15)
--- NOTE | 2018-03-20 09:17 | CP.CCUPN ---
CCU Subjective - Physician Review Events Since Last Encounter (Free Text): 03/20/18 09:17 Patient had a cardiac arrest while he was getting admitted in the hospital. Patient today having episodes of tachycardia, hypertension. Also patient is in looks like anoxic. gaz paralyzes noted. Not responding. Patient is sedated at this time. On examination: Vital signs stable otherwise. Patient is on fentanyl, and also propofol. full support ventilation. Chest good air entry, expiratory wheezing noted medications noted. Labs reviewed Chest x-ray reviewed Blood gas analysis reviewed Medications reviewed Patient is a 67-year-old male with a history of chronic lung disease, interstitial lung pattern admitted to the hospital following the chest pain, complicated with cardiac arrest, now having anoxic encephalopathy. respiratory Failure. We will do the full support ventilation. Neurologic evaluation, repeat CAT scan, will follow the patient. Overall prognosis very poor Critical Care Time Spent (in minutes): 45 CCU Objective - Vital Signs / Intake & Output Vital Signs (Last 4 hours): Vital Signs Pulse Resp BP Pulse Ox 03/20/18 06:00 57 L 24 100 03/20/18 05:51 126/77 03/20/18 05:31 55 L 24 127/79 100 Intake and Output (Last 8hrs): Intake & Output 03/19/18 03/20/18 03/20/18 22:59 06:59 14:59 Intake Total 334.8 Output Total 430 Balance -95.2 Weight 166 lb Intake: IV 50 Intake, IV Amount 284.8 Left Hand 84.7 Right Antecubital 33.3 Right Hand 166.8 Output: Urine 430 Urethral (Melvin) 430 - Medications Active Medications: Active Medications Generic Name Dose Route Start Last Admin Trade Name Freq PRN Reason Stop Dose Admin Albuterol/Ipratropium 3 ml 03/20/18 14:00 Duoneb 3 Mg/0.5 Mg (3 Ml) Ud INH RQ6 DOUG Aspirin 81 mg 03/20/18 10:00 Aspirin Chewable PO DAILY [facility] Heparin Sodium (Porcine) 5,000 units 03/20/18 14:00 Heparin SC Q8 DOUG Piperacillin Sod/Tazobactam Sod 3.375 gm in 50 mls @ 100 mls/hr 03/19/18 19:30 03/20/18 07:30 Zosyn 3.375 Gm Iv Premix IVPB 100 mls/hr Q6H DOUG Administration Protocol Amiodarone HCl 900 mg/ 500 mls @ 16.67 mls/hr 03/20/18 01:19 03/20/18 01:00 Dextrose IV 03/21/18 00:59 16.67 mls/hr .Q24H ONE Administration Protocol 0.5 MG/MIN Insulin Aspart 0 unit 03/19/18 20:00 03/20/18 05:37 Novolog SC 3 units Q6 DOUG Administration Protocol Methylprednisolone 60 mg 03/20/18 10:00 Solu-Medrol IVP TID DOUG Metoprolol Tartrate 25 mg 03/20/18 10:00 Lopressor PO BID DOUG Pantoprazole Sodium 40 mg 03/20/18 10:00 Protonix Inj IVP DAILY DOUG - Patient Studies Lab Studies: Lab Studies 03/20/18 03/20/18 03/20/18 Range/Units 05:55 05:49 05:49 WBC (4.8-10.8) K/uL RBC (4.40-5.90) Mil/uL Hgb (12.0-18.0) g/dL Hct (35.0-51.0) % MCV (80.0-94.0) fL MCH (27.0-31.0) pg MCHC (33.0-37.0) g/dL RDW (11.5-14.5) % Plt Count (130-400) K/uL MPV (7.2-11.7) fL Neut % (Auto) (50.0-75.0) % Lymph % (Auto) (20.0-40.0) % Campbell % (Auto) (0.0-10.0) % Eos % (Auto) (0.0-4.0) % Baso % (Auto) (0.0-2.0) % Neut # (Auto) (1.8-7.0) K/uL Lymph # (Auto) (1.0-4.3) K/uL Campbell # (Auto) (0.0-0.8) K/uL Eos # (Auto) (0.0-0.7) K/uL Baso # (Auto) (0.0-0.2) K/uL Neutrophils % (Manual) (50-75) % Band Neutrophils % (0-2) % Lymphocytes % (Manual) (20-40) % Monocytes % (Manual) (0-10) % Platelet Estimate (NORMAL) Poikilocytosis (manual Ovalocytes ESR (0-15) mm/hr Puncture Site pCO2 (35-45) mm/Hg pO2 (80-100) mm/Hg HCO3 (21-28) mmol/L ABG pH (7.35-7.45) ABG Total CO2 (22-28) mmol/L ABG O2 Saturation (95-98) % ABG Base Excess (-2.0-3.0) mmol/L Bran Test ABG Potassium (3.6-5.2) mmol/L A-a O2 Difference mm/Hg Respiratory Index Glucose (75-110) mg/dl Lactate (0.7-2.1) mmol/L Vent Mode Mechanical Rate FiO2 % Tidal Volume PEEP Crit Value Called To Crit Value Called By Crit Value Read Back Blood Gas Notified Time Sodium 136 (132-148) mmol/L Potassium 4.0 (3.6-5.2) mmol/L Chloride 109 H (98-107) mmol/L Carbon Dioxide 16 L (22-30) mmol/L Anion Gap 15 (10-20) BUN 23 H (9-20) mg/dL Creatinine 1.3 (0.8-1.5) mg/dL Est GFR ( Amer) > 60 Est GFR (Non-Af Amer) 55 POC Glucose (mg/dL) (65-110) mg/dL Random Glucose 232 H (75-110) mg/dL Calcium 8.2 L (8.6-10.4) mg/dl Phosphorus 3.1 (2.5-4.5) mg/dL Magnesium 1.7 (1.6-2.3) mg/dL Total Bilirubin 0.8 (0.2-1.3) mg/dL AST 146 H (17-59) U/L ALT 103 H (21-72) U/L Alkaline Phosphatase 95 (38-126) U/L Total Creatine Kinase 557 H (55-170) U/L CK-MB (Mass) 16.0 H (0.0-3.38) ng/mL Troponin I 11.9000 H* (0.00-0.120) ng/mL Total Protein 6.5 (6.3-8.3) g/dL Albumin 3.6 (3.5-5.0) g/dL Globulin 3.0 (2.2-3.9) gm/dL Albumin/Globulin Ratio 1.2 (1.0-2.1) Arterial Blood Potassium (3.6-5.2) mmol/L Urine Color Asmita (YELLOW) Urine Clarity Hazy (Clear) Urine pH 5.0 (5.0-8.0) Ur Specific [place] 1.054 H (1.003-1.030) Urine Protein 2+ H (NEGATIVE) mg/dL Urine Glucose (UA) 1+ H (Normal) mg/dL Urine Ketones Negative (NEGATIVE) mg/dL Urine Blood 1+ H (NEGATIVE) Urine Nitrate Negative (NEGATIVE) Urine Bilirubin Negative (NEGATIVE) Urine Urobilinogen Normal (0.2-1.0) mg/dL Ur Leukocyte Esterase Neg (Negative) Asher/uL Urine RBC (Auto) 74 H (0-3) /hpf Ur Squamous Epith Cells 2 (0-5) /hpf Urine Bacteria Occ H (<OCC) 03/20/18 03/20/18 03/20/18 Range/Units 05:49 05:26 04:35 WBC 14.8 H (4.8-10.8) K/uL RBC 4.11 L (4.40-5.90) Mil/uL Hgb 11.9 L (12.0-18.0) g/dL Hct 37.2 (35.0-51.0) % MCV 90.6 (80.0-94.0) fL MCH 28.8 (27.0-31.0) pg MCHC 31.8 L (33.0-37.0) g/dL RDW 14.0 (11.5-14.5) % Plt Count 199 (130-400) K/uL MPV 8.6 (7.2-11.7) fL Neut % (Auto) 89.4 H (50.0-75.0) % Lymph % (Auto) 5.3 L (20.0-40.0) % Campbell % (Auto) 5.2 (0.0-10.0) % Eos % (Auto) 0.0 (0.0-4.0) % Baso % (Auto) 0.1 (0.0-2.0) % Neut # (Auto) 13.2 H (1.8-7.0) K/uL Lymph # (Auto) 0.8 L (1.0-4.3) K/uL Campbell # (Auto) 0.8 (0.0-0.8) K/uL Eos # (Auto) 0.0 (0.0-0.7) K/uL Baso # (Auto) 0.0 (0.0-0.2) K/uL Neutrophils % (Manual) 84 H (50-75) % Band Neutrophils % 5 H (0-2) % Lymphocytes % (Manual) 5 L (20-40) % Monocytes % (Manual) 6 (0-10) % Platelet Estimate Normal (NORMAL) Poikilocytosis (manual Slight Ovalocytes Slight ESR 30 H (0-15) mm/hr Puncture Site Rr pCO2 34 L (35-45) mm/Hg pO2 115 H (80-100) mm/Hg HCO3 17.7 L (21-28) mmol/L ABG pH 7.29 L (7.35-7.45) ABG Total CO2 17.3 L (22-28) mmol/L ABG O2 Saturation 98.9 H (95-98) % ABG Base Excess -9.3 L (-2.0-3.0) mmol/L Bran Test Pos ABG Potassium 3.7 (3.6-5.2) mmol/L A-a O2 Difference 128.0 mm/Hg Respiratory Index 1.1 Glucose 236 H (75-110) mg/dl Lactate 1.1 (0.7-2.1) mmol/L Vent Mode Prvc Mechanical Rate 24 FiO2 40.0 % Tidal Volume 500 PEEP 5 Crit Value Called To Crit Value Called By Crit Value Read Back Blood Gas Notified Time Sodium 139.0 (132-148) mmol/L Potassium (3.6-5.2) mmol/L Chloride 113.0 H (98-107) mmol/L Carbon Dioxide (22-30) mmol/L Anion Gap (10-20) BUN (9-20) mg/dL Creatinine (0.8-1.5) mg/dL Est GFR ( Amer) Est GFR (Non-Af Amer) POC Glucose (mg/dL) 239 H (65-110) mg/dL Random Glucose (75-110) mg/dL Calcium (8.6-10.4) mg/dl Phosphorus (2.5-4.5) mg/dL Magnesium (1.6-2.3) mg/dL Total Bilirubin (0.2-1.3) mg/dL AST (17-59) U/L ALT (21-72) U/L Alkaline Phosphatase (38-126) U/L Total Creatine Kinase (55-170) U/L CK-MB (Mass) (0.0-3.38) ng/mL Troponin I (0.00-0.120) ng/mL Total Protein (6.3-8.3) g/dL Albumin (3.5-5.0) g/dL Globulin (2.2-3.9) gm/dL Albumin/Globulin Ratio (1.0-2.1) Arterial Blood Potassium 3.7 (3.6-5.2) mmol/L Urine Color (YELLOW) Urine Clarity (Clear) Urine pH (5.0-8.0) Ur Specific [place] (1.003-1.030) Urine Protein (NEGATIVE) mg/dL Urine Glucose (UA) (Normal) mg/dL Urine Ketones (NEGATIVE) mg/dL Urine Blood (NEGATIVE) Urine Nitrate (NEGATIVE) Urine Bilirubin (NEGATIVE) Urine Urobilinogen (0.2-1.0) mg/dL Ur Leukocyte Esterase (Negative) Asher/uL Urine RBC (Auto) (0-3) /hpf Ur Squamous Epith Cells (0-5) /hpf Urine Bacteria (<OCC) 03/20/18 03/19/18 03/19/18 Range/Units 00:00 22:49 21:03 WBC 24.6 H D (4.8-10.8) K/uL RBC 4.33 L (4.40-5.90) Mil/uL Hgb 12.5 (12.0-18.0) g/dL Hct 39.5 (35.0-51.0) % MCV 91.0 (80.0-94.0) fL MCH 28.8 (27.0-31.0) pg MCHC 31.6 L (33.0-37.0) g/dL RDW 14.1 (11.5-14.5) % Plt Count 246 (130-400) K/uL MPV 8.8 (7.2-11.7) fL Neut % (Auto) 80.9 H (50.0-75.0) % Lymph % (Auto) 14.2 L (20.0-40.0) % Campbell % (Auto) 3.4 (0.0-10.0) % Eos % (Auto) 1.3 (0.0-4.0) % Baso % (Auto) 0.2 (0.0-2.0) % Neut # (Auto) 19.9 H (1.8-7.0) K/uL Lymph # (Auto) 3.5 (1.0-4.3) K/uL Campbell # (Auto) 0.8 (0.0-0.8) K/uL Eos # (Auto) 0.3 (0.0-0.7) K/uL Baso # (Auto) 0.0 (0.0-0.2) K/uL Neutrophils % (Manual) (50-75) % Band Neutrophils % (0-2) % Lymphocytes % (Manual) (20-40) % Monocytes % (Manual) (0-10) % Platelet Estimate (NORMAL) Poikilocytosis (manual Ovalocytes ESR (0-15) mm/hr Puncture Site Lr pCO2 30 L (35-45) mm/Hg pO2 267 H (80-100) mm/Hg HCO3 17.4 L (21-28) mmol/L ABG pH 7.31 L (7.35-7.45) ABG Total CO2 16.0 L (22-28) mmol/L ABG O2 Saturation 99.9 H (95-98) % ABG Base Excess -9.8 L (-2.0-3.0) mmol/L Bran Test Unable ABG Potassium 3.8 (3.6-5.2) mmol/L A-a O2 Difference 123.0 mm/Hg Respiratory Index 0.5 Glucose 225 H (75-110) mg/dl Lactate 1.4 (0.7-2.1) mmol/L Vent Mode Prvc Mechanical Rate 24 FiO2 60.0 % Tidal Volume 500 PEEP 5 Crit Value Called To Crit Value Called By Crit Value Read Back Blood Gas Notified Time Sodium 138.0 (132-148) mmol/L Potassium (3.6-5.2) mmol/L Chloride 114.0 H (98-107) mmol/L Carbon Dioxide (22-30) mmol/L Anion Gap (10-20) BUN (9-20) mg/dL Creatinine (0.8-1.5) mg/dL Est GFR ( Amer) Est GFR (Non-Af Amer) POC Glucose (mg/dL) 224 H (65-110) mg/dL Random Glucose (75-110) mg/dL Calcium (8.6-10.4) mg/dl Phosphorus (2.5-4.5) mg/dL Magnesium (1.6-2.3) mg/dL Total Bilirubin (0.2-1.3) mg/dL AST (17-59) U/L ALT (21-72) U/L Alkaline Phosphatase (38-126) U/L Total Creatine Kinase (55-170) U/L CK-MB (Mass) (0.0-3.38) ng/mL Troponin I (0.00-0.120) ng/mL Total Protein (6.3-8.3) g/dL Albumin (3.5-5.0) g/dL Globulin (2.2-3.9) gm/dL Albumin/Globulin Ratio (1.0-2.1) Arterial Blood Potassium 3.8 (3.6-5.2) mmol/L Urine Color (YELLOW) Urine Clarity (Clear) Urine pH (5.0-8.0) Ur Specific [place] (1.003-1.030) Urine Protein (NEGATIVE) mg/dL Urine Glucose (UA) (Normal) mg/dL Urine Ketones (NEGATIVE) mg/dL Urine Blood (NEGATIVE) Urine Nitrate (NEGATIVE) Urine Bilirubin (NEGATIVE) Urine Urobilinogen (0.2-1.0) mg/dL Ur Leukocyte Esterase (Negative) Asher/uL Urine RBC (Auto) (0-3) /hpf Ur Squamous Epith Cells (0-5) /hpf Urine Bacteria (<OCC) 03/19/18 03/19/18 03/19/18 Range/Units 21:03 19:45 18:45 WBC (4.8-10.8) K/uL RBC (4.40-5.90) Mil/uL Hgb (12.0-18.0) g/dL Hct (35.0-51.0) % MCV (80.0-94.0) fL MCH (27.0-31.0) pg MCHC (33.0-37.0) g/dL RDW (11.5-14.5) % Plt Count (130-400) K/uL MPV (7.2-11.7) fL Neut % (Auto) (50.0-75.0) % Lymph % (Auto) (20.0-40.0) % Campbell % (Auto) (0.0-10.0) % Eos % (Auto) (0.0-4.0) % Baso % (Auto) (0.0-2.0) % Neut # (Auto) (1.8-7.0) K/uL Lymph # (Auto) (1.0-4.3) K/uL Campbell # (Auto) (0.0-0.8) K/uL Eos # (Auto) (0.0-0.7) K/uL Baso # (Auto) (0.0-0.2) K/uL Neutrophils % (Manual) (50-75) % Band Neutrophils % (0-2) % Lymphocytes % (Manual) (20-40) % Monocytes % (Manual) (0-10) % Platelet Estimate (NORMAL) Poikilocytosis (manual Ovalocytes ESR (0-15) mm/hr Puncture Site Right radial pCO2 33 L (35-45) mm/Hg pO2 259 H (80-100) mm/Hg HCO3 8.5 L* (21-28) mmol/L ABG pH 7.03 L* (7.35-7.45) ABG Total CO2 9.7 L (22-28) mmol/L ABG O2 Saturation 100.0 H (95-98) % ABG Base Excess -21.2 L (-2.0-3.0) mmol/L Bran Test Na ABG Potassium (3.6-5.2) mmol/L A-a O2 Difference 413.0 mm/Hg Respiratory Index 1.6 Glucose (75-110) mg/dl Lactate (0.7-2.1) mmol/L Vent Mode Mechanical Rate FiO2 100.0 % Tidal Volume 500 PEEP 5 Crit Value Called To Er attending Crit Value Called By Eliazar Crit Value Read Back Y Blood Gas Notified Time 1904 Sodium 136 (132-148) mmol/L Potassium 4.1 (3.6-5.2) mmol/L Chloride 109 H (98-107) mmol/L Carbon Dioxide 15 L (22-30) mmol/L Anion Gap 16 (10-20) BUN 16 (9-20) mg/dL Creatinine 1.0 (0.8-1.5) mg/dL Est GFR ( Amer) > 60 Est GFR (Non-Af Amer) > 60 POC Glucose (mg/dL) 83 (65-110) mg/dL Random Glucose 211 H D (75-110) mg/dL Calcium 8.2 L (8.6-10.4) mg/dl Phosphorus (2.5-4.5) mg/dL Magnesium (1.6-2.3) mg/dL Total Bilirubin 0.6 (0.2-1.3) mg/dL AST 170 H D (17-59) U/L ALT 122 H D (21-72) U/L Alkaline Phosphatase 100 (38-126) U/L Total Creatine Kinase 222 H (55-170) U/L CK-MB (Mass) 6.85 H (0.0-3.38) ng/mL Troponin I 1.2300 H* (0.00-0.120) ng/mL Total Protein 6.7 (6.3-8.3) g/dL Albumin 3.6 (3.5-5.0) g/dL Globulin 3.1 (2.2-3.9) gm/dL Albumin/Globulin Ratio 1.2 (1.0-2.1) Arterial Blood Potassium (3.6-5.2) mmol/L Urine Color (YELLOW) Urine Clarity (Clear) Urine pH (5.0-8.0) Ur Specific [place] (1.003-1.030) Urine Protein (NEGATIVE) mg/dL Urine Glucose (UA) (Normal) mg/dL Urine Ketones (NEGATIVE) mg/dL Urine Blood (NEGATIVE) Urine Nitrate (NEGATIVE) Urine Bilirubin (NEGATIVE) Urine Urobilinogen (0.2-1.0) mg/dL Ur Leukocyte Esterase (Negative) Asher/uL Urine RBC (Auto) (0-3) /hpf Ur Squamous Epith Cells (0-5) /hpf Urine Bacteria (<OCC) 03/19/18 03/19/18 Range/Units 12:10 12:10 WBC 7.8 (4.8-10.8) K/uL RBC 4.55 (4.40-5.90) Mil/uL Hgb 13.6 (12.0-18.0) g/dL Hct 40.7 (35.0-51.0) % MCV 89.6 (80.0-94.0) fL MCH 29.9 (27.0-31.0) pg MCHC 33.4 (33.0-37.0) g/dL RDW 13.6 (11.5-14.5) % Plt Count 248 (130-400) K/uL MPV 8.9 (7.2-11.7) fL Neut % (Auto) 67.0 (50.0-75.0) % Lymph % (Auto) 21.4 (20.0-40.0) % Campbell % (Auto) 5.6 (0.0-10.0) % Eos % (Auto) 5.5 H (0.0-4.0) % Baso % (Auto) 0.5 (0.0-2.0) % Neut # (Auto) 5.3 (1.8-7.0) K/uL Lymph # (Auto) 1.7 (1.0-4.3) K/uL Campbell # (Auto) 0.4 (0.0-0.8) K/uL Eos # (Auto) 0.4 (0.0-0.7) K/uL Baso # (Auto) 0.0 (0.0-0.2) K/uL Neutrophils % (Manual) (50-75) % Band Neutrophils % (0-2) % Lymphocytes % (Manual) (20-40) % Monocytes % (Manual) (0-10) % Platelet Estimate (NORMAL) Poikilocytosis (manual Ovalocytes ESR (0-15) mm/hr Puncture Site pCO2 (35-45) mm/Hg pO2 (80-100) mm/Hg HCO3 (21-28) mmol/L ABG pH (7.35-7.45) ABG Total CO2 (22-28) mmol/L ABG O2 Saturation (95-98) % ABG Base Excess (-2.0-3.0) mmol/L Bran Test ABG Potassium (3.6-5.2) mmol/L A-a O2 Difference mm/Hg Respiratory Index Glucose (75-110) mg/dl Lactate (0.7-2.1) mmol/L Vent Mode Mechanical Rate FiO2 % Tidal Volume PEEP Crit Value Called To Crit Value Called By Crit Value Read Back Blood Gas Notified Time Sodium 137 (132-148) mmol/L Potassium 4.4 (3.6-5.2) mmol/L Chloride 107 (98-107) mmol/L Carbon Dioxide 21 L (22-30) mmol/L Anion Gap 13 (10-20) BUN 17 (9-20) mg/dL Creatinine 0.8 (0.8-1.5) mg/dL Est GFR ( Amer) > 60 Est GFR (Non-Af Amer) > 60 POC Glucose (mg/dL) (65-110) mg/dL Random Glucose 107 (75-110) mg/dL Calcium 9.1 (8.6-10.4) mg/dl Phosphorus (2.5-4.5) mg/dL Magnesium (1.6-2.3) mg/dL Total Bilirubin 0.3 (0.2-1.3) mg/dL AST 20 (17-59) U/L ALT 14 L D (21-72) U/L Alkaline Phosphatase 94 (38-126) U/L Total Creatine Kinase 55 (55-170) U/L CK-MB (Mass) 1.43 (0.0-3.38) ng/mL Troponin I < 0.0120 (0.00-0.120) ng/mL Total Protein 7.6 (6.3-8.3) g/dL Albumin 4.2 (3.5-5.0) g/dL Globulin 3.4 (2.2-3.9) gm/dL Albumin/Globulin Ratio 1.2 (1.0-2.1) Arterial Blood Potassium (3.6-5.2) mmol/L Urine Color (YELLOW) Urine Clarity (Clear) Urine pH (5.0-8.0) Ur Specific [place] (1.003-1.030) Urine Protein (NEGATIVE) mg/dL Urine Glucose (UA) (Normal) mg/dL Urine Ketones (NEGATIVE) mg/dL Urine Blood (NEGATIVE) Urine Nitrate (NEGATIVE) Urine Bilirubin (NEGATIVE) Urine Urobilinogen (0.2-1.0) mg/dL Ur Leukocyte Esterase (Negative) Asher/uL Urine RBC (Auto) (0-3) /hpf Ur Squamous Epith Cells (0-5) /hpf Urine Bacteria (<OCC) Laboratory Results - last 24 hr 03/19/18 03/19/18 03/19/18 12:10 12:10 18:45 WBC 7.8 RBC 4.55 Hgb 13.6 Hct 40.7 MCV 89.6 MCH 29.9 MCHC 33.4 RDW 13.6 Plt Count 248 MPV 8.9 Neut % (Auto) 67.0 Lymph % (Auto) 21.4 Campbell % (Auto) 5.6 Eos % (Auto) 5.5 H Baso % (Auto) 0.5 Neut # (Auto) 5.3 Lymph # (Auto) 1.7 Campbell # (Auto) 0.4 Eos # (Auto) 0.4 Baso # (Auto) 0.0 Neutrophils % (Manual) Band Neutrophils % Lymphocytes % (Manual) Monocytes % (Manual) Platelet Estimate Poikilocytosis (manual Ovalocytes ESR Puncture Site pCO2 pO2 HCO3 ABG pH ABG Total CO2 ABG O2 Saturation ABG Base Excess Bran Test ABG Potassium A-a O2 Difference Respiratory Index Glucose Lactate Vent Mode Mechanical Rate FiO2 Tidal Volume PEEP Crit Value Called To Crit Value Called By Crit Value Read Back Blood Gas Notified Time Sodium 137 Potassium 4.4 Chloride 107 Carbon Dioxide 21 L Anion Gap 13 BUN 17 Creatinine 0.8 Est GFR ( Amer) > 60 Est GFR (Non-Af Amer) > 60 POC Glucose (mg/dL) 83 Random Glucose 107 Calcium 9.1 Phosphorus Magnesium Total Bilirubin 0.3 AST 20 ALT 14 L D Alkaline Phosphatase 94 Total Creatine Kinase 55 CK-MB (Mass) 1.43 Troponin I < 0.0120 Total Protein 7.6 Albumin 4.2 Globulin 3.4 Albumin/Globulin Ratio 1.2 Arterial Blood Potassium Urine Color Urine Clarity Urine pH Ur Specific [place] Urine Protein Urine Glucose (UA) Urine Ketones Urine Blood Urine Nitrate Urine Bilirubin Urine Urobilinogen Ur Leukocyte Esterase Urine RBC (Auto) Ur Squamous Epith Cells Urine Bacteria 03/19/18 03/19/18 03/19/18 19:45 21:03 21:03 WBC 24.6 H D RBC 4.33 L Hgb 12.5 Hct 39.5 MCV 91.0 MCH 28.8 MCHC 31.6 L RDW 14.1 Plt Count 246 MPV 8.8 Neut % (Auto) 80.9 H Lymph % (Auto) 14.2 L Campbell % (Auto) 3.4 Eos % (Auto) 1.3 Baso % (Auto) 0.2 Neut # (Auto) 19.9 H Lymph # (Auto) 3.5 Campbell # (Auto) 0.8 Eos # (Auto) 0.3 Baso # (Auto) 0.0 Neutrophils % (Manual) Band Neutrophils % Lymphocytes % (Manual) Monocytes % (Manual) Platelet Estimate Poikilocytosis (manual Ovalocytes ESR Puncture Site Right radial pCO2 33 L pO2 259 H HCO3 8.5 L* ABG pH 7.03 L* ABG Total CO2 9.7 L ABG O2 Saturation 100.0 H ABG Base Excess -21.2 L Bran Test Na ABG Potassium A-a O2 Difference 413.0 Respiratory Index 1.6 Glucose Lactate Vent Mode Mechanical Rate FiO2 100.0 Tidal Volume 500 PEEP 5 Crit Value Called To Er attending Crit Value Called By Eliazar Crit Value Read Back Y Blood Gas Notified Time 1904 Sodium 136 Potassium 4.1 Chloride 109 H Carbon Dioxide 15 L Anion Gap 16 BUN 16 Creatinine 1.0 Est GFR ( Amer) > 60 Est GFR (Non-Af Amer) > 60 POC Glucose (mg/dL) Random Glucose 211 H D Calcium 8.2 L Phosphorus Magnesium Total Bilirubin 0.6 AST 170 H D ALT 122 H D Alkaline Phosphatase 100 Total Creatine Kinase 222 H CK-MB (Mass) 6.85 H Troponin I 1.2300 H* Total Protein 6.7 Albumin 3.6 Globulin 3.1 Albumin/Globulin Ratio 1.2 Arterial Blood Potassium Urine Color Urine Clarity Urine pH Ur Specific [place] Urine Protein Urine Glucose (UA) Urine Ketones Urine Blood Urine Nitrate Urine Bilirubin Urine Urobilinogen Ur Leukocyte Esterase Urine RBC (Auto) Ur Squamous Epith Cells Urine Bacteria 03/19/18 03/20/18 03/20/18 22:49 00:00 04:35 WBC RBC Hgb Hct MCV MCH MCHC RDW Plt Count MPV Neut % (Auto) Lymph % (Auto) Campbell % (Auto) Eos % (Auto) Baso % (Auto) Neut # (Auto) Lymph # (Auto) Campbell # (Auto) Eos # (Auto) Baso # (Auto) Neutrophils % (Manual) Band Neutrophils % Lymphocytes % (Manual) Monocytes % (Manual) Platelet Estimate Poikilocytosis (manual Ovalocytes ESR Puncture Site Lr Rr pCO2 30 L 34 L pO2 267 H 115 H HCO3 17.4 L 17.7 L ABG pH 7.31 L 7.29 L ABG Total CO2 16.0 L 17.3 L ABG O2 Saturation 99.9 H 98.9 H ABG Base Excess -9.8 L -9.3 L Bran Test Unable Pos ABG Potassium 3.8 3.7 A-a O2 Difference 123.0 128.0 Respiratory Index 0.5 1.1 Glucose 225 H 236 H Lactate 1.4 1.1 Vent Mode Prvc Prvc Mechanical Rate 24 24 FiO2 60.0 40.0 Tidal Volume 500 500 PEEP 5 5 Crit Value Called To Crit Value Called By Crit Value Read Back Blood Gas Notified Time Sodium 138.0 139.0 Potassium Chloride 114.0 H 113.0 H Carbon Dioxide Anion Gap BUN Creatinine Est GFR ( Amer) Est GFR (Non-Af Amer) POC Glucose (mg/dL) 224 H Random Glucose Calcium Phosphorus Magnesium Total Bilirubin AST ALT Alkaline Phosphatase Total Creatine Kinase CK-MB (Mass) Troponin I Total Protein Albumin Globulin Albumin/Globulin Ratio Arterial Blood Potassium 3.8 3.7 Urine Color Urine Clarity Urine pH Ur Specific [place] Urine Protein Urine Glucose (UA) Urine Ketones Urine Blood Urine Nitrate Urine Bilirubin Urine Urobilinogen Ur Leukocyte Esterase Urine RBC (Auto) Ur Squamous Epith Cells Urine Bacteria 03/20/18 03/20/18 03/20/18 05:26 05:49 05:49 WBC 14.8 H RBC 4.11 L Hgb 11.9 L Hct 37.2 MCV 90.6 MCH 28.8 MCHC 31.8 L RDW 14.0 Plt Count 199 MPV 8.6 Neut % (Auto) 89.4 H Lymph % (Auto) 5.3 L [place] % (Auto) 5.2 Eos % (Auto) 0.0 Baso % (Auto) 0.1 Neut # (Auto) 13.2 H Lymph # (Auto) 0.8 L [place] # (Auto) 0.8 Eos # (Auto) 0.0 Baso # (Auto) 0.0 Neutrophils % (Manual) 84 H Band Neutrophils % 5 H Lymphocytes % (Manual) 5 L Monocytes % (Manual) 6 Platelet Estimate Normal Poikilocytosis (manual Slight Ovalocytes Slight ESR 30 H Puncture Site pCO2 pO2 HCO3 ABG pH ABG Total CO2 ABG O2 Saturation ABG Base Excess Bran Test ABG Potassium A-a O2 Difference Respiratory Index Glucose Lactate Vent Mode Mechanical Rate FiO2 Tidal Volume PEEP Crit Value Called To Crit Value Called By Crit Value Read Back Blood Gas Notified Time Sodium 136 Potassium 4.0 Chloride 109 H Carbon Dioxide 16 L Anion Gap 15 BUN 23 H Creatinine 1.3 Est GFR ( Amer) > 60 Est GFR (Non-Af Amer) 55 POC Glucose (mg/dL) 239 H Random Glucose 232 H Calcium 8.2 L Phosphorus 3.1 Magnesium 1.7 Total Bilirubin 0.8 AST 146 H ALT 103 H Alkaline Phosphatase 95 Total Creatine Kinase CK-MB (Mass) Troponin I Total Protein 6.5 Albumin 3.6 Globulin 3.0 Albumin/Globulin Ratio 1.2 Arterial Blood Potassium Urine Color Urine Clarity Urine pH Ur Specific [place] Urine Protein Urine Glucose (UA) Urine Ketones Urine Blood Urine Nitrate Urine Bilirubin Urine Urobilinogen Ur Leukocyte Esterase Urine RBC (Auto) Ur Squamous Epith Cells Urine Bacteria 03/20/18 03/20/18 05:49 05:55 WBC RBC Hgb Hct MCV MCH MCHC RDW Plt Count MPV Neut % (Auto) Lymph % (Auto) [place] % (Auto) Eos % (Auto) Baso % (Auto) Neut # (Auto) Lymph # (Auto) [place] # (Auto) Eos # (Auto) Baso # (Auto) Neutrophils % (Manual) Band Neutrophils % Lymphocytes % (Manual) Monocytes % (Manual) Platelet Estimate Poikilocytosis (manual Ovalocytes ESR Puncture Site pCO2 pO2 HCO3 ABG pH ABG Total CO2 ABG O2 Saturation ABG Base Excess Bran Test ABG Potassium A-a O2 Difference Respiratory Index Glucose Lactate Vent Mode Mechanical Rate FiO2 Tidal Volume PEEP Crit Value Called To Crit Value Called By Crit Value Read Back Blood Gas Notified Time Sodium Potassium Chloride Carbon Dioxide Anion Gap BUN Creatinine Est GFR ( Amer) Est GFR (Non-Af Amer) POC Glucose (mg/dL) Random Glucose Calcium Phosphorus Magnesium Total Bilirubin AST ALT Alkaline Phosphatase Total Creatine Kinase 557 H CK-MB (Mass) 16.0 H Troponin I 11.9000 H* Total Protein Albumin Globulin Albumin/Globulin Ratio Arterial Blood Potassium Urine Color [place] Urine Clarity Hazy Urine pH 5.0 Ur Specific [place] 1.054 H Urine Protein 2+ H Urine Glucose (UA) 1+ H Urine Ketones Negative Urine Blood 1+ H Urine Nitrate Negative Urine Bilirubin Negative Urine Urobilinogen Normal Ur Leukocyte Esterase Neg Urine RBC (Auto) 74 H Ur Squamous Epith Cells 2 Urine Bacteria Occ H Radiology Impressions: Radiology Impressions Chest X-Ray 03/19/18 11:51 IMPRESSION: Diffuse interstitial thickening in the lungs which may represent acute interstitial pneumonitis, lymphangitis carcinomatosis or nonspecific interstitial lung disease. Background of COPD. Chest CT 03/19/18 13:44 IMPRESSION: Redemonstration of stable findings in the lungs most compatible with centrilobular emphysema in the upper lobes with component of pulmonary fibrosis. No acute findings. Chest X-Ray 03/19/18 18:54 IMPRESSION: Emphysematous changes. Fibrotic changes re-identified. Overall increased opacification predominantly within the upper lobes raises suspicion for superimposed infection and/or edema. Partially obscured cardiomegaly. Prominence of the mediastinum may be exaggerated by patient obliquity and ectatic aorta however alternatives including adenopathy not excluded. EKG/Cardiology Studies: Cardiology / EKG Studies 03/19/18 11:36 EKG [ELECTROCARDIOGRAM] Stat Comment: Mode Of Transportation: Reason For Exam: triage; chest pain 03/19/18 13:21 EKG [ELECTROCARDIOGRAM] Stat Comment: Mode Of Transportation: Reason For Exam: triage; chest pain 03/19/18 18:53 EKG [ELECTROCARDIOGRAM] Stat Comment: Mode Of Transportation: Reason For Exam: ROSC 03/19/18 19:50 ELECTROCARDIOGRAM Stat Comment: Mode Of Transportation: PORTABLE Reason For Exam: POST CODE
[2018-03-20] MEDS ORDERED: Pantoprazole 40 mg EC Tab PO SCH (10:00)
[2018-03-20] MEDS ORDERED: Azithromycin 500 MG in Sodium Chloride 0.9% 250 ML IVPB SCH (10:00)
--- NOTE | 2018-03-20 10:36 | RAD ---
HISTORY: ff up/intubated COMPARISON: Chest x-ray performed 03/19/18 TECHNIQUE: Chest, one view. FINDINGS: Endotracheal tube terminates approximately 5.6 cm above the minnie. Nasogastric tube extends expected location of the stomach. To left-sided defibrillator pads. LUNGS: Increased lucencies especially within the bilateral upper lung guillermo compatible with underlying emphysema. Fibrotic changes. Moderate interstitial infection or edema. PLEURA: No significant pleural effusion identified. No definite pneumothorax . CARDIOVASCULAR: Cardiomegaly. Atherosclerotic calcifications present. Ectatic aorta. OSSEOUS STRUCTURES: Degenerative changes. VISUALIZED UPPER ABDOMEN: Unremarkable. OTHER FINDINGS: None. IMPRESSION: Support lines and tubes as above. Emphysema. Fibrotic changes. Moderate interstitial edema or infection.
[2018-03-20 10:37] LABS: HDL CHOLESTEROL 31 mg/dL (30-70)
[2018-03-20 10:48] LABS: LDL CHOLESTEROL 91 mg/dL (0-129)
[2018-03-20 10:58] LABS: BARBITURATES, UR NEGATIVE (NEGATIVE); BENZODIAZEPINES, UR NEGATIVE (NEGATIVE); OPIATES, UR NEGATIVE (NEGATIVE); PHENCYCLIDINE, UR NEGATIVE (NEGATIVE)
[2018-03-20] MEDS: MethylPREDNISolone 40 mg Vial IVP SCH ×3 (11:08→17:43)
[2018-03-20] MEDS ORDERED: Iodixanol 320 MG/ML 200 ML BOTTLE IV ONE (11:42)
[2018-03-20] MEDS: Albuterol-Ipratrop 3 mg / 0.5 (3 ml) UD INH SCH ×2 (13:09→19:23)
--- NOTE | 2018-03-20 13:53 | CP.PCM.PN ---
Subjective - Date & Time of Evaluation Date of Evaluation: 03/20/18 Time of Evaluation: 10:00 - Subjective Subjective: seen and examined this morning Patient is on ventilator,unresponsive,no response to deep pain,Pupils equal not reacting to light, patient was sedated on full ventilator support. He is on amiodarone vitals signs BP 158/89,112,20,sat 100% on Fio2 40% Objective - Vital Signs/Intake and Output Vital Signs (last 24 hours): Temp Pulse Resp BP Pulse Ox 98.8 F 72 24 152/98 H 100 03/20/18 12:00 03/20/18 12:52 03/20/18 12:52 03/20/18 12:52 03/20/18 12:52 Intake and Output: 03/20/18 03/20/18 06:59 18:59 Intake Total 334.8 132.3 Output Total 430 Balance -95.2 132.3 - Medications Medications: Current Medications Albuterol/Ipratropium (Duoneb 3 Mg/0.5 Mg (3 Ml) Ud) 3 ml INH RQ6 [facility] Last Admin: 03/20/18 13:09 Dose: 3 ml Aspirin (Aspirin Chewable) 81 mg PO DAILY [facility] Last Admin: 03/20/18 11:15 Dose: Not Given Heparin Sodium (Porcine) (Heparin) 5,000 units SC Q8 [facility] Piperacillin Sod/Tazobactam Sod (Zosyn 3.375 Gm Iv Premix) 3.375 gm in 50 mls @ 100 mls/hr IVPB Q6H [facility]; Protocol Last Admin: 03/20/18 07:30 Dose: 100 mls/hr Amiodarone HCl 900 mg/ (Dextrose) 500 mls @ 16.67 mls/hr IV .Q24H [facility]; Protocol Stop: 03/21/18 00:59 Last Admin: 03/20/18 01:00 Dose: 16.67 mls/hr Insulin Aspart (Novolog) 0 unit SC Q6 [facility]; Protocol Last Admin: 03/20/18 12:14 Dose: 3 units Methylprednisolone (Solu-Medrol) 60 mg IVP TID [facility] Last Admin: 03/20/18 11:08 Dose: 60 mg Metoprolol Tartrate (Lopressor) 25 mg PO BID [facility] Last Admin: 03/20/18 11:09 Dose: 25 mg Pantoprazole Sodium (Protonix Inj) 40 mg IVP DAILY [facility] Last Admin: 03/20/18 11:08 Dose: 40 mg - Labs Labs: 03/20/18 05:49 03/20/18 05:49 - Constitutional Appears: Older Than Stated Age - Head Exam Head Exam: ATRAUMATIC - Eye Exam Eye Exam: Normal appearance. absent: PERRL (pupils not reating to light) - ENT Exam ENT Exam: Mucous Membranes Moist - Neck Exam Neck Exam: Full ROM - Respiratory Exam Respiratory Exam: Rhonchi. absent: Respiratory Distress, NORMAL BREATHING PATTERN (on ventilator) - Cardiovascular Exam Cardiovascular Exam: REGULAR RHYTHM - GI/Abdominal Exam GI & Abdominal Exam: Soft, Normal Bowel Sounds - Extremities Exam Extremities Exam: Full ROM - Neurological Exam Neurological Exam: absent: Awake (unresponsive), Oriented x3 - Psychiatric Exam Psychiatric exam: absent: Normal Mood - Skin Skin Exam: absent: Dry Assessment and Plan - Assessment and Plan (Free Text) Assessment: 1. Cardiac arrest s/p cardiac arrest in the ER He was asystolic before initially,Epi x 3 given, went into VF/VT requiring shock and Amiodarone 300mg Currently in NSR on Amiodarone drip,Hemodynamically stable,not on pressors Attempted to take patient for cardiac catheterization by dental technician metal, general laborer is down due to fluoroscopy malfunction. d/w dental technician metal Bossman . started on heparin drip,continue asprin Echo reviewed with dental technician metal in the ICU, preserved LV function, griselda-septal hypokinesis Unresponsive, suspecting anoxic brain encephalopathy.spoke to Dr Menjivar Neurologist. recommending CTA head and neck today or tomorrow. since patient had IV contrast for CTA we will avoid contrast within 24 hours. We will do in the morning CT head last night -no acute stroke,no bleeding,7mm to 9mm aneurysm Repeat CT head tomorrow Neurology evaluation Follow blood cultures ,sputum and urine culture 2.Elevated troponin/NSTEMI Elevated troponin and s/p CRP LBBB-old r/o coronary disease. started on heparin,continue asprin follow up with dental technician metal may go for cardiac cath tomorrow 3.Severe pulmonary fibrosis CT chest centrilobular emphysema and upper lobe pulmonary fobrosis DR Salazar for pulmonary consult do RF,JENNIFER,ESR On IV steroid r/o infection, On zosyn 4. DM monitor sugar 5.Hypertension hold lisinopril,monitor BP 6.Supportive care DVt prophylaxis is on heparin GI prophy is on protonix feeding-NG 7.Advance directives On admission patient stated that his family is in [place]. We reached his friend Kenna this morning.He contacted his family.Son called us from [place] . spoke to his Son Jose E Mejia [phone]. He is full code Later his showed up. Spoke to her at bedside. As per his she is aware of his visit to ER . She told me that he came to renew his ambar care previladge ,abdominal discomfort and diarrhea .I asked to update contact information and includes there names and contact numbers
--- NOTE | 2018-03-20 14:38 | CT ---
Date of service: 03/19/2018 PROCEDURE: CT HEAD WITHOUT CONTRAST. HISTORY: S/P UNRESPONSIVENESS COMPARISON: None available. TECHNIQUE: Axial computed tomography images were obtained through the head/brain without intravenous contrast. This CT exam was performed using one or more of the following dose reduction techniques: Automated exposure control, adjustment of the mA and/or kV according to patient size, and/or use of iterative reconstruction technique. FINDINGS: HEMORRHAGE: No intracranial hemorrhage. 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 This can be seen on image 31 series 4. There is no evidence of subarachnoid hemorrhage. No atrophy or chronic microvascular ischemic changes. VENTRICLES: Unremarkable. No hydrocephalus. CALVARIUM: Unremarkable. PARANASAL SINUSES: Unremarkable as visualized. No significant inflammatory changes. MASTOID AIR CELLS: Unremarkable as visualized. No inflammatory changes. 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 This can be seen on image 31 series 4. There is no evidence of subarachnoid hemorrhage.
--- NOTE | 2018-03-20 15:09 | CP.PCM.CON ---
History of Present Illness - History of Present Illness History of Present Illness: 67 yo male with h/o pulmonary fibrosis/HTN/T2D; was undergoing evaluation in the ER for pleuritic chest pain, when became unresponsive. Per documentation (patient is intubated and unable to give history), found to be in asystole/PEA, developed VT/VF requiring single shock and one round of epinephrine. Known history of LBBB on EKG. Initial EKG with wide complex tachycardia. Currently intubated, second troponin 12. Hypothermia protocol was not initiated due to lack of equipment in the ICU Review of Systems - Review of Systems Review of Systems: unable to obtain Past Patient History - Past Medical History & Family History Past Medical History?: Yes - Past Social History Smoking Status: Former Smoker - CARDIAC Hx Cardiac Disorders: Yes Hx Hypertension: Yes - PULMONARY Hx Respiratory Disorders: No - NEUROLOGICAL Hx Neurological Disorder: No - HEENT Hx HEENT Problems: No - RENAL Hx Chronic Kidney Disease: No - ENDOCRINE/METABOLIC Hx Endocrine Disorders: Yes Hx Diabetes Mellitus Type 2: Yes - HEMATOLOGICAL/ONCOLOGICAL Hx Blood Disorders: No - INTEGUMENTARY Hx Dermatological Problems: No - MUSCULOSKELETAL/RHEUMATOLOGICAL Hx Falls: No - GASTROINTESTINAL Hx Gastrointestinal Disorders: No - GENITOURINARY/GYNECOLOGICAL Hx Genitourinary Disorders: Yes Hx Prostate Problems: Yes (bph) - PSYCHIATRIC Hx Substance Use: No - SURGICAL HISTORY Hx Surgeries: Yes Other/Comment: cystoscopy - ANESTHESIA Hx Anesthesia: Yes Hx Anesthesia Reactions: No Hx Malignant Hyperthermia: No Has any member of the family had a problem w/ anesthesia?: No Meds Allergies/Adverse Reactions: Allergies Allergy/AdvReac Type Severity Reaction Status Date / Time No Known Allergies Allergy Verified 12/12/15 11:59 - Medications Medications: Current Medications Albuterol/Ipratropium (Duoneb 3 Mg/0.5 Mg (3 Ml) Ud) 3 ml INH RQ6 [facility] Last Admin: 03/20/18 13:09 Dose: 3 ml Aspirin (Aspirin Chewable) 81 mg PO DAILY [facility] Last Admin: 03/20/18 14:30 Dose: 81 mg Heparin Sodium (Porcine) (Heparin) 5,000 units SC Q8 [facility] Last Admin: 03/20/18 14:31 Dose: 5,000 units Piperacillin Sod/Tazobactam Sod (Zosyn 3.375 Gm Iv Premix) 3.375 gm in 50 mls @ 100 mls/hr IVPB Q6H [facility]; Protocol Last Admin: 03/20/18 14:34 Dose: 100 mls/hr Amiodarone HCl 900 mg/ (Dextrose) 500 mls @ 16.67 mls/hr IV .Q24H [facility]; Protocol Stop: 03/21/18 00:59 Last Admin: 03/20/18 01:00 Dose: 16.67 mls/hr Heparin Sodium/Sodium Chloride (Heparin 84904 Units/250ml 1/2 Normal Saline) 25,000 units in 250 mls @ 9.036 mls/hr IV .Q24H [facility]; Protocol PRN Reason: ADJUST RATE PER PROTOCOL Insulin Aspart (Novolog) 0 unit SC Q6 [facility]; Protocol Last Admin: 03/20/18 12:14 Dose: 3 units Methylprednisolone (Solu-Medrol) 60 mg IVP TID [facility] Last Admin: 03/20/18 14:37 Dose: 60 mg Metoprolol Tartrate (Lopressor) 25 mg PO BID [facility] Last Admin: 03/20/18 11:09 Dose: 25 mg Pantoprazole Sodium (Protonix Inj) 40 mg IVP DAILY [facility] Last Admin: 03/20/18 11:08 Dose: 40 mg Physical Exam - Constitutional Additional comments: Intubated and unresponsive - Head Exam Head Exam: ATRAUMATIC, NORMOCEPHALIC - Eye Exam Pupil Exam: Fixed - Respiratory Exam Respiratory Exam: Rhonchi - Cardiovascular Exam Cardiovascular Exam: REGULAR RHYTHM, JVD, RRR, +S1, +S2 - GI/Abdominal Exam GI & Abdominal Exam: Soft. absent: Tenderness - Neurological Exam Neurological exam: Alert, CN II-XII Intact, Oriented x3 - Psychiatric Exam Psychiatric exam: Normal Affect, Normal Mood Results - Vital Signs Recent Vital Signs: Last Vital Signs Temp 98.8 F 03/20/18 12:00 Pulse 72 03/20/18 12:52 Resp 24 03/20/18 12:52 BP 152/98 H 03/20/18 12:52 Pulse Ox 100 03/20/18 12:52 - Labs Result Diagrams: 03/20/18 05:49 03/20/18 05:49 Labs: Laboratory Results - last 24 hr 03/19/18 03/19/18 03/19/18 18:45 19:45 21:03 WBC RBC Hgb Hct MCV MCH MCHC RDW Plt Count MPV Neut % (Auto) Lymph % (Auto) [place] % (Auto) Eos % (Auto) Baso % (Auto) Neut # (Auto) Lymph # (Auto) [place] # (Auto) Eos # (Auto) Baso # (Auto) Neutrophils % (Manual) Band Neutrophils % Lymphocytes % (Manual) Monocytes % (Manual) Platelet Estimate Poikilocytosis (manual Ovalocytes ESR Puncture Site Right radial pCO2 33 L pO2 259 H HCO3 8.5 L* ABG pH 7.03 L* ABG Total CO2 9.7 L ABG O2 Saturation 100.0 H ABG Base Excess -21.2 L Bran Test Na ABG Potassium A-a O2 Difference 413.0 Respiratory Index 1.6 Glucose Lactate Vent Mode Mechanical Rate FiO2 100.0 Tidal Volume 500 PEEP 5 Crit Value Called To Er attending Crit Value Called By Eliazar Crit Value Read Back Y Blood Gas Notified Time 1904 Sodium 136 Potassium 4.1 Chloride 109 H Carbon Dioxide 15 L Anion Gap 16 BUN 16 Creatinine 1.0 Est GFR ( Amer) > 60 Est GFR (Non-Af Amer) > 60 POC Glucose (mg/dL) 83 Random Glucose 211 H D Calcium 8.2 L Phosphorus Magnesium Total Bilirubin 0.6 AST 170 H D ALT 122 H D Alkaline Phosphatase 100 Total Creatine Kinase 222 H CK-MB (Mass) 6.85 H Troponin I 1.2300 H* Total Protein 6.7 Albumin 3.6 Globulin 3.1 Albumin/Globulin Ratio 1.2 Triglycerides Cholesterol LDL Cholesterol Direct HDL Cholesterol TSH 3rd Generation Arterial Blood Potassium Urine Color Urine Clarity Urine pH Ur Specific [place] Urine Protein Urine Glucose (UA) Urine Ketones Urine Blood Urine Nitrate Urine Bilirubin Urine Urobilinogen Ur Leukocyte Esterase Urine RBC (Auto) Ur Squamous Epith Cells Urine Bacteria Urine Opiates Screen Urine Methadone Screen Ur Barbiturates Screen Ur Phencyclidine Scrn Ur Amphetamines Screen U Benzodiazepines Scrn U Oth Cocaine Metabols U Cannabinoids Screen Alcohol, Quantitative 03/19/18 03/19/18 03/20/18 21:03 22:49 00:00 WBC 24.6 H D RBC 4.33 L Hgb 12.5 Hct 39.5 MCV 91.0 MCH 28.8 MCHC 31.6 L RDW 14.1 Plt Count 246 MPV 8.8 Neut % (Auto) 80.9 H Lymph % (Auto) 14.2 L [place] % (Auto) 3.4 Eos % (Auto) 1.3 Baso % (Auto) 0.2 Neut # (Auto) 19.9 H Lymph # (Auto) 3.5 [place] # (Auto) 0.8 Eos # (Auto) 0.3 Baso # (Auto) 0.0 Neutrophils % (Manual) Band Neutrophils % Lymphocytes % (Manual) Monocytes % (Manual) Platelet Estimate Poikilocytosis (manual Ovalocytes ESR Puncture Site Lr pCO2 30 L pO2 267 H HCO3 17.4 L ABG pH 7.31 L ABG Total CO2 16.0 L ABG O2 Saturation 99.9 H ABG Base Excess -9.8 L Bran Test Unable ABG Potassium 3.8 A-a O2 Difference 123.0 Respiratory Index 0.5 Glucose 225 H Lactate 1.4 Vent Mode Prvc Mechanical Rate 24 FiO2 60.0 Tidal Volume 500 PEEP 5 Crit Value Called To Crit Value Called By Crit Value Read Back Blood Gas Notified Time Sodium 138.0 Potassium Chloride 114.0 H Carbon Dioxide Anion Gap BUN Creatinine Est GFR ( Amer) Est GFR (Non-Af Amer) POC Glucose (mg/dL) 224 H Random Glucose Calcium Phosphorus Magnesium Total Bilirubin AST ALT Alkaline Phosphatase Total Creatine Kinase CK-MB (Mass) Troponin I Total Protein Albumin Globulin Albumin/Globulin Ratio Triglycerides Cholesterol LDL Cholesterol Direct HDL Cholesterol TSH 3rd Generation Arterial Blood Potassium 3.8 Urine Color Urine Clarity Urine pH Ur Specific [place] Urine Protein Urine Glucose (UA) Urine Ketones Urine Blood Urine Nitrate Urine Bilirubin Urine Urobilinogen Ur Leukocyte Esterase Urine RBC (Auto) Ur Squamous Epith Cells Urine Bacteria Urine Opiates Screen Urine Methadone Screen Ur Barbiturates Screen Ur Phencyclidine Scrn Ur Amphetamines Screen U Benzodiazepines Scrn U Oth Cocaine Metabols U Cannabinoids Screen Alcohol, Quantitative 03/20/18 03/20/18 03/20/18 04:35 05:26 05:49 WBC 14.8 H RBC 4.11 L Hgb 11.9 L Hct 37.2 MCV 90.6 MCH 28.8 MCHC 31.8 L RDW 14.0 Plt Count 199 MPV 8.6 Neut % (Auto) 89.4 H Lymph % (Auto) 5.3 L [place] % (Auto) 5.2 Eos % (Auto) 0.0 Baso % (Auto) 0.1 Neut # (Auto) 13.2 H Lymph # (Auto) 0.8 L [place] # (Auto) 0.8 Eos # (Auto) 0.0 Baso # (Auto) 0.0 Neutrophils % (Manual) 84 H Band Neutrophils % 5 H Lymphocytes % (Manual) 5 L Monocytes % (Manual) 6 Platelet Estimate Normal Poikilocytosis (manual Slight Ovalocytes Slight ESR 30 H Puncture Site Rr pCO2 34 L pO2 115 H HCO3 17.7 L ABG pH 7.29 L ABG Total CO2 17.3 L ABG O2 Saturation 98.9 H ABG Base Excess -9.3 L Bran Test Pos ABG Potassium 3.7 A-a O2 Difference 128.0 Respiratory Index 1.1 Glucose 236 H Lactate 1.1 Vent Mode Prvc Mechanical Rate 24 FiO2 40.0 Tidal Volume 500 PEEP 5 Crit Value Called To Crit Value Called By Crit Value Read Back Blood Gas Notified Time Sodium 139.0 Potassium Chloride 113.0 H Carbon Dioxide Anion Gap BUN Creatinine Est GFR ( Amer) Est GFR (Non-Af Amer) POC Glucose (mg/dL) 239 H Random Glucose Calcium Phosphorus Magnesium Total Bilirubin AST ALT Alkaline Phosphatase Total Creatine Kinase CK-MB (Mass) Troponin I Total Protein Albumin Globulin Albumin/Globulin Ratio Triglycerides Cholesterol LDL Cholesterol Direct HDL Cholesterol TSH 3rd Generation Arterial Blood Potassium 3.7 Urine Color Urine Clarity Urine pH Ur Specific [place] Urine Protein Urine Glucose (UA) Urine Ketones Urine Blood Urine Nitrate Urine Bilirubin Urine Urobilinogen Ur Leukocyte Esterase Urine RBC (Auto) Ur Squamous Epith Cells Urine Bacteria Urine Opiates Screen Urine Methadone Screen Ur Barbiturates Screen Ur Phencyclidine Scrn Ur Amphetamines Screen U Benzodiazepines Scrn U Oth Cocaine Metabols U Cannabinoids Screen Alcohol, Quantitative 03/20/18 03/20/18 03/20/18 05:49 05:49 05:55 WBC RBC Hgb Hct MCV MCH MCHC RDW Plt Count MPV Neut % (Auto) Lymph % (Auto) [place] % (Auto) Eos % (Auto) Baso % (Auto) Neut # (Auto) Lymph # (Auto) [place] # (Auto) Eos # (Auto) Baso # (Auto) Neutrophils % (Manual) Band Neutrophils % Lymphocytes % (Manual) Monocytes % (Manual) Platelet Estimate Poikilocytosis (manual Ovalocytes ESR Puncture Site pCO2 pO2 HCO3 ABG pH ABG Total CO2 ABG O2 Saturation ABG Base Excess Bran Test ABG Potassium A-a O2 Difference Respiratory Index Glucose Lactate Vent Mode Mechanical Rate FiO2 Tidal Volume PEEP Crit Value Called To Crit Value Called By Crit Value Read Back Blood Gas Notified Time Sodium 136 Potassium 4.0 Chloride 109 H Carbon Dioxide 16 L Anion Gap 15 BUN 23 H Creatinine 1.3 Est GFR ( Amer) > 60 Est GFR (Non-Af Amer) 55 POC Glucose (mg/dL) Random Glucose 232 H Calcium 8.2 L Phosphorus 3.1 Magnesium 1.7 Total Bilirubin 0.8 AST 146 H ALT 103 H Alkaline Phosphatase 95 Total Creatine Kinase 557 H CK-MB (Mass) 16.0 H Troponin I 11.9000 H* Total Protein 6.5 Albumin 3.6 Globulin 3.0 Albumin/Globulin Ratio 1.2 Triglycerides Cholesterol LDL Cholesterol Direct HDL Cholesterol TSH 3rd Generation Arterial Blood Potassium Urine Color Asmita Urine Clarity Hazy Urine pH 5.0 Ur Specific [place] 1.054 H Urine Protein 2+ H Urine Glucose (UA) 1+ H Urine Ketones Negative Urine Blood 1+ H Urine Nitrate Negative Urine Bilirubin Negative Urine Urobilinogen Normal Ur Leukocyte Esterase Neg Urine RBC (Auto) 74 H Ur Squamous Epith Cells 2 Urine Bacteria Occ H Urine Opiates Screen Urine Methadone Screen Ur Barbiturates Screen Ur Phencyclidine Scrn Ur Amphetamines Screen U Benzodiazepines Scrn U Oth Cocaine Metabols U Cannabinoids Screen Alcohol, Quantitative 03/20/18 03/20/18 10:18 10:18 WBC RBC Hgb Hct MCV MCH MCHC RDW Plt Count MPV Neut % (Auto) Lymph % (Auto) [place] % (Auto) Eos % (Auto) Baso % (Auto) Neut # (Auto) Lymph # (Auto) [place] # (Auto) Eos # (Auto) Baso # (Auto) Neutrophils % (Manual) Band Neutrophils % Lymphocytes % (Manual) Monocytes % (Manual) Platelet Estimate Poikilocytosis (manual Ovalocytes ESR Puncture Site pCO2 pO2 HCO3 ABG pH ABG Total CO2 ABG O2 Saturation ABG Base Excess Bran Test ABG Potassium A-a O2 Difference Respiratory Index Glucose Lactate Vent Mode Mechanical Rate FiO2 Tidal Volume PEEP Crit Value Called To Crit Value Called By Crit Value Read Back Blood Gas Notified Time Sodium Potassium Chloride Carbon Dioxide Anion Gap BUN Creatinine Est GFR ( Amer) Est GFR (Non-Af Amer) POC Glucose (mg/dL) Random Glucose Calcium Phosphorus Magnesium Total Bilirubin AST ALT Alkaline Phosphatase Total Creatine Kinase CK-MB (Mass) Troponin I Total Protein Albumin Globulin Albumin/Globulin Ratio Triglycerides 58 D Cholesterol 135 LDL Cholesterol Direct 91 HDL Cholesterol 31 TSH 3rd Generation 0.60 Arterial Blood Potassium Urine Color Urine Clarity Urine pH Ur Specific [place] Urine Protein Urine Glucose (UA) Urine Ketones Urine Blood Urine Nitrate Urine Bilirubin Urine Urobilinogen Ur Leukocyte Esterase Urine RBC (Auto) Ur Squamous Epith Cells Urine Bacteria Urine Opiates Screen Negative Urine Methadone Screen Negative Ur Barbiturates Screen Negative Ur Phencyclidine Scrn Negative Ur Amphetamines Screen Negative U Benzodiazepines Scrn Negative U Oth Cocaine Metabols Negative U Cannabinoids Screen Negative Alcohol, Quantitative < 10 - EKG Data EKG comments: My review EKG 1: Wide complex with AV disssociation, suggestive of VT EKG 2: NSR/LBBB Assessment & Plan (1) Cardiac arrest Assessment and Plan: Suspected VT/VF arrest requiring shock Currently in NSR Hemodynamically stable Maintains BP without pressors Attmpted to take patient for cardiac catheterization, however, due to fluoroscopy malfunction, skilled laborer is down. Unreponsive, suggestive anoxic brain encephalopathy Therapeutic hypothermia was not initiated MCA aneurysm Repeat CT head Neurology evaluation Status: Acute (2) Ventricular fibrillation Assessment and Plan: Currently in NSR Cont with amiodarone Status: Acute (3) NSTEMI (non-ST elevated myocardial infarction) Assessment and Plan: Aspirin 81 mg daily Heparin for anticoagulation Echo, in my prelimnary review, preserved LV function, griselda-septal hypokinesis Repeat CT head in view of MCA aneurysm Cardiac cath if neurologically improves Status: Acute
[2018-03-20 15:19] LABS: INR 1.1; PROTHROMBIN TIME 11.7 SECONDS (9.7-12.2)
[2018-03-20] MEDS: Heparin25000 units/250ml 1/2NS 25,000 UNITS/250 ML BAG IV PRN (15:30)
[2018-03-20] MEDS: Propofol 10 mg/ml 1,000 MG/100 ML VIAL IV PRN (21:20)
[2018-03-21] MEDS: Piperacill/Tazo 3.375gm in Dex 3.375 GM/50 ML BAG IVPB SCH ×3 (00:30→12:38)
[2018-03-21] MEDS: (Novolog) Insulin Aspart, Recombinant 100 u/ml 10 ml vial SC SCH ×5 (00:40→23:50)
[2018-03-21] MEDS: Albuterol-Ipratrop 3 mg / 0.5 (3 ml) UD INH SCH ×4 (01:03→20:12)
[2018-03-21 04:53] LABS: BASO # 0.1 K/uL (0.0-0.2); BASO % 0.5 % (0.0-2.0); HEMOGLOBIN 11.6 g/dL (12.0-18.0); LYMPH # 0.7 K/uL (1.0-4.3); LYMPH % 3.7 % (20.0-40.0); MEAN CELL VOLUME 88.8 fL (80.0-94.0); MEAN CORPUSCULAR HEMOGLOBIN 28.6 pg (27.0-31.0); MEAN CORPUSCULAR HGB CONC 32.2 g/dL (33.0-37.0); MONO # 0.7 K/uL (0.0-0.8); MONO % 3.5 % (0.0-10.0); NEUT # 17.2 K/uL (1.8-7.0); NEUT % 92.3 % (50.0-75.0); PLATELET COUNT 149 K/uL (130-400); RBC 4.04 Mil/uL (4.40-5.90); RED CELL DISTRIBUTION WIDTH 14.1 % (11.5-14.5); WHITE BLOOD COUNT 18.6 K/uL (4.8-10.8)
[2018-03-21 04:56] LABS: INR 1.2; PROTHROMBIN TIME 12.9 SECONDS (9.7-12.2)
[2018-03-21 05:03] LABS: ALB/GLOB RATIO 1.1 (1.0-2.1); ALBUMIN 3.5 g/dL (3.5-5.0); CALCIUM 8.5 mg/dl (8.6-10.4)
[2018-03-21 05:06] LABS: ABG ALLEN TEST POS; ARTERIAL BLOOD GAS HCO3 21.2 mmol/L (21-28); ARTERIAL BLOOD GAS HEMOGLOBIN 11.7 g/dL (11.7-17.4); ARTERIAL BLOOD GAS O2 SAT 99.3 % (95-98); ARTERIAL BLOOD GAS PCO2 33 mm/Hg (35-45); ARTERIAL BLOOD GAS PH 7.38 (7.35-7.45); ARTERIAL BLOOD GAS PO2 125 mm/Hg (80-100); ARTERIAL BLOOD GAS TCO2 20.5 mmol/L (22-28)
[2018-03-21] MEDS: Propofol 10 mg/ml 1,000 MG/100 ML VIAL IV PRN (07:32)
--- NOTE | 2018-03-21 08:37 | CP.PCM.PN ---
Subjective - Date & Time of Evaluation Date of Evaluation: 03/21/18 Time of Evaluation: 08:34 - Subjective Subjective: seen and examined by me . Patient is sedated with propofol, Examined off sedation,pupils react to light,trying to close his eyes for lig ht,good gag reflex,bitting the tube,I don't see responding to deep pain,as per RN he was moving his right hand. On MV PRVC Fio2 40% ,peep 5,RR 24,sat 99% BP remains good ,BP 145/93,HR 65 Patient is getting NG feeding at 20ml/hr UOP 840 last 24hrs His creatinine went up ,this morning 1.8 Objective - Vital Signs/Intake and Output Vital Signs (last 24 hours): Temp Pulse Resp BP Pulse Ox 98.3 F 65 20 137/95 H 100 03/21/18 04:00 03/21/18 06:52 03/21/18 06:52 03/21/18 06:52 03/21/18 06:00 Intake and Output: 03/21/18 03/21/18 06:59 18:59 Intake Total 559.373 20.270 Output Total 360 Balance 199.373 20.270 - Medications Medications: Current Medications Albuterol/Ipratropium (Duoneb 3 Mg/0.5 Mg (3 Ml) Ud) 3 ml INH RQ6 [facility] Last Admin: 03/21/18 08:14 Dose: 3 ml Amiodarone HCl (Cordarone) 200 mg PO BID [facility] [place] Last Admin: 03/20/18 19:24 Dose: 200 mg Aspirin (Aspirin Chewable) 81 mg PO DAILY [facility] Last Admin: 03/20/18 14:30 Dose: 81 mg Piperacillin Sod/Tazobactam Sod (Zosyn 3.375 Gm Iv Premix) 3.375 gm in 50 mls @ 100 mls/hr IVPB Q6H [facility]; Protocol Last Admin: 03/21/18 06:53 Dose: 100 mls/hr Heparin Sodium/Sodium Chloride (Heparin 61897 Units/250ml 1/2 Normal Saline) 25,000 units in 250 mls @ 9.036 mls/hr IV .Q24H [facility]; Protocol PRN Reason: ADJUST RATE PER PROTOCOL Last Admin: 03/20/18 15:30 Dose: 12 units/kg/hr, 9.036 mls/hr Propofol (Diprivan) 1,000 mg in 100 mls @ 2.259 mls/hr IV .Q24H PRN; Protocol PRN Reason: TITRATE PER MD ORDER Last Titration: 03/21/18 07:00 Dose: 10 mcg/kg/min, 4.518 mls/hr Insulin Aspart (Novolog) 0 unit SC Q6 [facility] [place]; Protocol Last Admin: 03/21/18 06:53 Dose: 2 units Methylprednisolone (Solu-Medrol) 60 mg IVP TID [facility] Last Admin: 03/20/18 17:43 Dose: 60 mg Metoprolol Tartrate (Lopressor) 25 mg PO BID [facility] [place] Last Admin: 03/20/18 17:45 Dose: 25 mg Pantoprazole Sodium (Protonix Inj) 40 mg IVP DAILY [facility] [place] Last Admin: 03/20/18 11:08 Dose: 40 mg - Labs Labs: 03/21/18 04:41 03/21/18 04:41 PT 12.9 SECONDS (9.7-12.2) H 03/21/18 04:41 INR 1.2 03/21/18 04:41 APTT 94 SECONDS (21-34) H D 03/21/18 04:41 - Constitutional Appears: In Acute Distress - Head Exam Head Exam: absent: NORMAL INSPECTION (intubated) - Eye Exam Eye Exam: PERRL - ENT Exam ENT Exam: Mucous Membranes Moist - Neck Exam Neck Exam: absent: Full ROM - Respiratory Exam Respiratory Exam: Rhonchi. absent: NORMAL BREATHING PATTERN (on MV) - Cardiovascular Exam Cardiovascular Exam: REGULAR RHYTHM - GI/Abdominal Exam GI & Abdominal Exam: Normal Bowel Sounds - Extremities Exam Extremities Exam: absent: Full ROM - Back Exam Back Exam: NORMAL INSPECTION - Neurological Exam Neurological Exam: absent: Awake, Oriented x3 (intubated) - Psychiatric Exam Psychiatric exam: absent: Normal Mood (intubated) - Skin Skin Exam: Dry, Intact, Normal Color Assessment and Plan - Assessment and Plan (Free Text) Plan: Cardiac arrest /Intubated /MV dependent s/p cardiac arrest in the ER Initial rhythm asytole ,Epi x 3 given, went into VF/VT requiring shock and Amiodarone 300mg Elevated troponin,EKG LBBB(old) Currently in NSR on oral Amiodarone 200mg BID ,off Amiodarone drip,Hemodynamically stable,not on pressors,on metoprolol 25mg po bid ,asprin and heparin drip d/w 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 Patient shows improvement spoke to Dr Menjivar Neurologist. 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 cultures Negative x24hrs Acute renal failure normal creatinine on admission,urine out put 840 last 24hrs,s/p contrast use IV fluids,follow creatinine,avoid contrast nephrology consult appreciated Elevated troponin/NSTEMI Elevated troponin and s/p CRP LBBB-old r/o coronary disease. on heparin,continue asprin,heparin,metoprolol follow up with repair armature winder regarding cardiac cath Severe pulmonary fibrosis CT chest centrilobular emphysema and upper lobe pulmonary fobrosis DR Salazar for pulmonary consult do RF,JENNIFER,ESR On IV steroid r/o infection, On zosyn DM monitor sugar Hypertension hold lisinopril,monitor BP Supportive care DVt prophylaxis is on heparin GI prophy is on protonix feeding-NG Advance directives spoke to his Son Jose E Mejia [phone] yesterday. at bedside . Discussed with her.
[2018-03-21] MEDS: MethylPREDNISolone 40 mg Vial IVP SCH ×3 (09:08→17:12)
[2018-03-21 09:40] LABS: BANDS 7 % (0-2); LYMPHOCYTE 3 % (20-40); MONOCYTE 3 % (0-10); NEUTROPHIL 87 % (50-75); TOTAL CELLS COUNTED 100
[2018-03-21 09:41] LABS: ANISOCYTOSIS SLIGHT; LARGE PLATELETS PRESENT; PLATELET ESTIMATE NORMAL (NORMAL)
[2018-03-21] MEDS: Sodium Chloride 0.9% 1,000 ML IV SCH (11:50)
--- NOTE | 2018-03-21 11:58 | RAD ---
HISTORY: intubated COMPARISON: Chest x-ray performed 03/20/18 TECHNIQUE: Chest, one view. FINDINGS: Tracheal tube terminates approximately 4.3 cm above the minnie. Nasogastric tube extends expected location of the stomach. Two external defibrillator pads evident. Numerous external wires and leads obscure evaluation of the underlying parenchyma. LUNGS: Emphysematous changes. Moderate interstitial edema or infection appears mildly improved since prior study. Likely fibrotic changes. Biapical pleural thickening. No significant pleural effusion or definite pneumothorax. CARDIOVASCULAR: Cardiomegaly. OSSEOUS STRUCTURES: Degenerative changes. VISUALIZED UPPER ABDOMEN: Unremarkable. OTHER FINDINGS: None. IMPRESSION: Endotracheal tube. Nasogastric tube. Moderate interstitial edema or infection, mildly improved since prior study. Additional findings as above.
--- NOTE | 2018-03-21 12:16 | CP.PCM.PN ---
Subjective - Date & Time of Evaluation Date of Evaluation: 03/21/18 Time of Evaluation: 11:59 - Subjective Subjective: No events, patient tracking with eyes on reducing sedation, sinus rhythm, troponin improved, maintained hemodynamics. Son coming from [place] today to discuss care/progress as well. Objective - Vital Signs/Intake and Output Vital Signs (last 24 hours): Temp Pulse Resp BP Pulse Ox 98.3 F 65 20 144/88 100 03/21/18 04:00 03/21/18 06:52 03/21/18 06:52 03/21/18 09:08 03/21/18 06:00 Intake and Output: 03/21/18 03/21/18 06:59 18:59 Intake Total 559.373 43.152 Output Total 360 Balance 199.373 43.152 - Medications Medications: Current Medications Albuterol/Ipratropium (Duoneb 3 Mg/0.5 Mg (3 Ml) Ud) 3 ml INH RQ6 [facility] Last Admin: 03/21/18 08:14 Dose: 3 ml Amiodarone HCl (Cordarone) 200 mg PO BID [facility] Last Admin: 03/21/18 09:08 Dose: 200 mg Aspirin (Aspirin Chewable) 81 mg PO DAILY [facility] Last Admin: 03/21/18 09:08 Dose: 81 mg Piperacillin Sod/Tazobactam Sod (Zosyn 3.375 Gm Iv Premix) 3.375 gm in 50 mls @ 100 mls/hr IVPB Q6H [facility]; Protocol Last Admin: 03/21/18 06:53 Dose: 100 mls/hr Heparin Sodium/Sodium Chloride (Heparin 98659 Units/250ml 1/2 Normal Saline) 25,000 units in 250 mls @ 9.036 mls/hr IV .Q24H PRN; Protocol PRN Reason: ADJUST RATE PER PROTOCOL Last Admin: 03/20/18 15:30 Dose: 12 units/kg/hr, 9.036 mls/hr Propofol (Diprivan) 1,000 mg in 100 mls @ 2.259 mls/hr IV .Q24H PRN; Protocol PRN Reason: TITRATE PER MD ORDER Last Titration: 03/21/18 08:39 Dose: 12 mcg/kg/min, 5.421 mls/hr Sodium Chloride (Sodium Chloride 0.9%) 1,000 mls @ 100 mls/hr IV .Q10H [facility] Insulin Aspart (Novolog) 0 unit SC Q6 [facility]; Protocol Last Admin: 03/21/18 06:53 Dose: 2 units Methylprednisolone (Solu-Medrol) 60 mg IVP TID [facility] Last Admin: 03/21/18 09:08 Dose: 60 mg Metoprolol Tartrate (Lopressor) 25 mg PO BID [facility] Last Admin: 03/21/18 09:08 Dose: 25 mg Pantoprazole Sodium (Protonix Inj) 40 mg IVP DAILY [facility] Last Admin: 03/21/18 09:08 Dose: 40 mg - Labs Labs: 03/21/18 04:41 03/21/18 04:41 PT 12.9 SECONDS (9.7-12.2) H 03/21/18 04:41 INR 1.2 03/21/18 04:41 APTT 94 SECONDS (21-34) H D 03/21/18 04:41 - Additional Findings Additional findings: * HEENT tracking intermittently * Neck supple * Chest Clear * CVS regular, no gallop or rub * PA soft * Ext no edema * Skin turgor reduced * 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 * Assessment and Plan - Assessment and Plan (Free Text) Assessment: * Vfib cardiac arrest, NSTEMI * Suspected Anoxic damage, but improvement noticed * H/o Pulm fibrosis not compliant with treatment * h/o NIDDM * Renal insufficiency ? form recent contrast iv vs atn from event Plan: * Supportive care * IVF * D/w cardiology planning cath tomorrow, ASA, statin, heparin drip * GI/DVT prophylaxis
--- NOTE | 2018-03-21 14:24 | CP.PCM.PN ---
Subjective - Date & Time of Evaluation Date of Evaluation: 03/21/18 Time of Evaluation: 12:30 - Subjective Subjective: Seen and examined Tracking with eyes, responds to pain Objective - Vital Signs/Intake and Output Vital Signs (last 24 hours): Temp Pulse Resp BP Pulse Ox 98.3 F 69 15 149/97 H 100 03/21/18 04:00 03/21/18 13:52 03/21/18 13:52 03/21/18 13:52 03/21/18 13:52 Intake and Output: 03/21/18 03/21/18 06:59 18:59 Intake Total 559.373 63.152 Output Total 360 Balance 199.373 63.152 - Medications Medications: Current Medications Albuterol/Ipratropium (Duoneb 3 Mg/0.5 Mg (3 Ml) Ud) 3 ml INH RQ6 [facility] Last Admin: 03/21/18 13:49 Dose: 3 ml Amiodarone HCl (Cordarone) 200 mg PO BID [facility] Last Admin: 03/21/18 09:08 Dose: 200 mg Aspirin (Aspirin Chewable) 81 mg PO DAILY [facility] Last Admin: 03/21/18 09:08 Dose: 81 mg Piperacillin Sod/Tazobactam Sod (Zosyn 3.375 Gm Iv Premix) 3.375 gm in 50 mls @ 100 mls/hr IVPB Q6H [facility]; Protocol Last Admin: 03/21/18 12:38 Dose: 100 mls/hr Heparin Sodium/Sodium Chloride (Heparin 12983 Units/250ml 1/2 Normal Saline) 25,000 units in 250 mls @ 9.036 mls/hr IV .Q24H [facility]N; Protocol PRN Reason: ADJUST RATE PER PROTOCOL Last Admin: 03/20/18 15:30 Dose: 12 units/kg/hr, 9.036 mls/hr Propofol (Diprivan) 1,000 mg in 100 mls @ 2.259 mls/hr IV .Q24H PRN; Protocol PRN Reason: TITRATE PER MD ORDER Last Titration: 03/21/18 11:00 Dose: 10 mcg/kg/min, 4.518 mls/hr Sodium Chloride (Sodium Chloride 0.9%) 1,000 mls @ 100 mls/hr IV .Q10H [facility] Last Admin: 03/21/18 11:50 Dose: 100 mls/hr Insulin Aspart (Novolog) 0 unit SC Q6 [facility]; Protocol Last Admin: 03/21/18 12:45 Dose: 2 units Methylprednisolone (Solu-Medrol) 60 mg IVP TID [facility] Last Admin: 03/21/18 09:08 Dose: 60 mg Metoprolol Tartrate (Lopressor) 25 mg PO BID [facility] Last Admin: 03/21/18 09:08 Dose: 25 mg Pantoprazole Sodium (Protonix Inj) 40 mg IVP DAILY [facility] Last Admin: 03/21/18 09:08 Dose: 40 mg - Labs Labs: 03/21/18 04:41 03/21/18 04:41 PT 12.9 SECONDS (9.7-12.2) H 03/21/18 04:41 INR 1.2 03/21/18 04:41 APTT 94 SECONDS (21-34) H D 03/21/18 04:41 - Head Exam Head Exam: ATRAUMATIC, NORMOCEPHALIC - Eye Exam Additional comments: tracking with eyes Pupils are more reactive - Respiratory Exam Respiratory Exam: Rhonchi - Cardiovascular Exam Cardiovascular Exam: REGULAR RHYTHM, RRR. absent: Murmur - GI/Abdominal Exam GI & Abdominal Exam: Soft. 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
--- NOTE | 2018-03-21 14:30 | CP.PCM.CON ---
History of Present Illness - History of Present Illness History of Present Illness: 67 yo [place] male, hx of DM, HTN, COPD, pulmonary fibrosis,BPH, known LBBB on EKG, presented 2 days ago to ER with chest pain and sob. While in ER, pt with cardiac arrest, vtach/vfib, elevated troponin. Pt resuscitated and presently on respirator. Being seen by Neuro, now tracking examiner. Bp improved, u/o 800cc over last 24 hrs. Pt with normal creatinine at admit, now increased to 1.8. Pt also s/p contrast CT scan. Past Patient History - Past Medical History & Family History Past Medical History?: Yes - Past Social History Smoking Status: Former Smoker - CARDIAC Hx Cardiac Disorders: Yes Hx Hypertension: Yes - PULMONARY Hx Respiratory Disorders: No - NEUROLOGICAL Hx Neurological Disorder: No - HEENT Hx HEENT Problems: No - RENAL Hx Chronic Kidney Disease: No - ENDOCRINE/METABOLIC Hx Endocrine Disorders: Yes Hx Diabetes Mellitus Type 2: Yes - HEMATOLOGICAL/ONCOLOGICAL Hx Blood Disorders: No - INTEGUMENTARY Hx Dermatological Problems: No - MUSCULOSKELETAL/RHEUMATOLOGICAL Hx Falls: No - GASTROINTESTINAL Hx Gastrointestinal Disorders: No - GENITOURINARY/GYNECOLOGICAL Hx Genitourinary Disorders: Yes Hx Prostate Problems: Yes (bph) - PSYCHIATRIC Hx Substance Use: No - SURGICAL HISTORY Hx Surgeries: Yes Other/Comment: cystoscopy - ANESTHESIA Hx Anesthesia: Yes Hx Anesthesia Reactions: No Hx Malignant Hyperthermia: No Has any member of the family had a problem w/ anesthesia?: No Meds Allergies/Adverse Reactions: Allergies Allergy/AdvReac Type Severity Reaction Status Date / Time No Known Allergies Allergy Verified 12/12/15 11:59 - Medications Medications: Current Medications Albuterol/Ipratropium (Duoneb 3 Mg/0.5 Mg (3 Ml) Ud) 3 ml INH RQ6 [facility] Last Admin: 03/21/18 13:49 Dose: 3 ml Amiodarone HCl (Cordarone) 200 mg PO BID [facility] Last Admin: 03/21/18 09:08 Dose: 200 mg Aspirin (Aspirin Chewable) 81 mg PO DAILY [facility] Last Admin: 03/21/18 09:08 Dose: 81 mg Piperacillin Sod/Tazobactam Sod (Zosyn 3.375 Gm Iv Premix) 3.375 gm in 50 mls @ 100 mls/hr IVPB Q6H [facility]; Protocol Last Admin: 03/21/18 12:38 Dose: 100 mls/hr Heparin Sodium/Sodium Chloride (Heparin 50724 Units/250ml 1/2 Normal Saline) 25,000 units in 250 mls @ 9.036 mls/hr IV .Q24H [facility]; Protocol PRN Reason: ADJUST RATE PER PROTOCOL Last Admin: 03/20/18 15:30 Dose: 12 units/kg/hr, 9.036 mls/hr Propofol (Diprivan) 1,000 mg in 100 mls @ 2.259 mls/hr IV .Q24H [facility]; Protocol PRN Reason: TITRATE PER MD ORDER Last Titration: 03/21/18 11:00 Dose: 10 mcg/kg/min, 4.518 mls/hr Sodium Chloride (Sodium Chloride 0.9%) 1,000 mls @ 100 mls/hr IV .Q10H [facility] Last Admin: 03/21/18 11:50 Dose: 100 mls/hr Insulin Aspart (Novolog) 0 unit SC Q6 [facility]; Protocol Last Admin: 03/21/18 12:45 Dose: 2 units Methylprednisolone (Solu-Medrol) 60 mg IVP TID [facility] Last Admin: 03/21/18 09:08 Dose: 60 mg Metoprolol Tartrate (Lopressor) 25 mg PO BID [facility] Last Admin: 03/21/18 09:08 Dose: 25 mg Pantoprazole Sodium (Protonix Inj) 40 mg IVP DAILY [facility] Last Admin: 03/21/18 09:08 Dose: 40 mg Results - Vital Signs Recent Vital Signs: Last Vital Signs Temp 98.3 F 03/21/18 04:00 Pulse 69 03/21/18 13:52 Resp 15 03/21/18 13:52 BP 149/97 H 03/21/18 13:52 Pulse Ox 100 03/21/18 13:52 - Labs Result Diagrams: 03/21/18 04:41 03/21/18 04:41 Labs: Laboratory Results - last 24 hr 03/20/18 03/20/18 03/20/18 05:49 10:18 10:18 WBC RBC Hgb Hct MCV MCH MCHC RDW Plt Count MPV Neut % (Auto) Lymph % (Auto) [place] % (Auto) Eos % (Auto) Baso % (Auto) Neut # (Auto) Lymph # (Auto) [place] # (Auto) Eos # (Auto) Baso # (Auto) Neutrophils % (Manual) Band Neutrophils % Lymphocytes % (Manual) Monocytes % (Manual) Platelet Estimate Large Platelets Anisocytosis (manual) PT INR APTT Puncture Site pCO2 pO2 HCO3 ABG pH ABG Total CO2 ABG O2 Saturation ABG Base Excess ABG Hemoglobin ABG Carboxyhemoglobin POC ABG HHb (Measured) ABG Methemoglobin Bran Test A-a O2 Difference Respiratory Index Hgb O2 Saturation Vent Mode Mechanical Rate FiO2 Tidal Volume PEEP Sodium Potassium Chloride Carbon Dioxide Anion Gap BUN Creatinine Est GFR ( Amer) Est GFR (Non-Af Amer) POC Glucose (mg/dL) Random Glucose Hemoglobin A1c 7.4 H Calcium Total Bilirubin AST ALT Alkaline Phosphatase Troponin I Total Protein Albumin Globulin Albumin/Globulin Ratio Procalcitonin Ur L.pneumophila Ag Negative Mycoplasma pneumon IgM Negative 03/20/18 03/20/18 03/20/18 10:18 11:12 14:33 WBC RBC Hgb Hct MCV MCH MCHC RDW Plt Count MPV Neut % (Auto) Lymph % (Auto) [place] % (Auto) Eos % (Auto) Baso % (Auto) Neut # (Auto) Lymph # (Auto) [place] # (Auto) Eos # (Auto) Baso # (Auto) Neutrophils % (Manual) Band Neutrophils % Lymphocytes % (Manual) Monocytes % (Manual) Platelet Estimate Large Platelets Anisocytosis (manual) PT INR APTT Puncture Site pCO2 pO2 HCO3 ABG pH ABG Total CO2 ABG O2 Saturation ABG Base Excess ABG Hemoglobin ABG Carboxyhemoglobin POC ABG HHb (Measured) ABG Methemoglobin Bran Test A-a O2 Difference Respiratory Index Hgb O2 Saturation Vent Mode Mechanical Rate FiO2 Tidal Volume PEEP Sodium Potassium Chloride Carbon Dioxide Anion Gap BUN Creatinine Est GFR ( Amer) Est GFR (Non-Af Amer) POC Glucose (mg/dL) 210 H Random Glucose Hemoglobin A1c Calcium Total Bilirubin AST ALT Alkaline Phosphatase Troponin I 11.2000 H* Total Protein Albumin Globulin Albumin/Globulin Ratio Procalcitonin 1.86 H Ur L.pneumophila Ag Mycoplasma pneumon IgM 03/20/18 03/20/18 03/20/18 15:08 17:48 22:01 WBC RBC Hgb Hct MCV MCH MCHC RDW Plt Count MPV Neut % (Auto) Lymph % (Auto) [place] % (Auto) Eos % (Auto) Baso % (Auto) Neut # (Auto) Lymph # (Auto) [place] # (Auto) Eos # (Auto) Baso # (Auto) Neutrophils % (Manual) Band Neutrophils % Lymphocytes % (Manual) Monocytes % (Manual) Platelet Estimate Large Platelets Anisocytosis (manual) PT 11.7 INR 1.1 APTT 32 75 H D Puncture Site pCO2 pO2 HCO3 ABG pH ABG Total CO2 ABG O2 Saturation ABG Base Excess ABG Hemoglobin ABG Carboxyhemoglobin POC ABG HHb (Measured) ABG Methemoglobin Bran Test A-a O2 Difference Respiratory Index Hgb O2 Saturation Vent Mode Mechanical Rate FiO2 Tidal Volume PEEP Sodium Potassium Chloride Carbon Dioxide Anion Gap BUN Creatinine Est GFR ( Amer) Est GFR (Non-Af Amer) POC Glucose (mg/dL) 177 H Random Glucose Hemoglobin A1c Calcium Total Bilirubin AST ALT Alkaline Phosphatase Troponin I Total Protein Albumin Globulin Albumin/Globulin Ratio Procalcitonin Ur L.pneumophila Ag Mycoplasma pneumon IgM 03/20/18 03/21/18 03/21/18 23:39 04:41 04:41 WBC 18.6 H RBC 4.04 L Hgb 11.6 L Hct 35.9 MCV 88.8 MCH 28.6 MCHC 32.2 L RDW 14.1 Plt Count 149 MPV 9.0 Neut % (Auto) 92.3 H Lymph % (Auto) 3.7 L [place] % (Auto) 3.5 Eos % (Auto) 0.0 Baso % (Auto) 0.5 Neut # (Auto) 17.2 H Lymph # (Auto) 0.7 L [place] # (Auto) 0.7 Eos # (Auto) 0.0 Baso # (Auto) 0.1 Neutrophils % (Manual) 87 H Band Neutrophils % 7 H Lymphocytes % (Manual) 3 L Monocytes % (Manual) 3 Platelet Estimate Normal Large Platelets Present Anisocytosis (manual) Slight PT INR APTT Puncture Site pCO2 pO2 HCO3 ABG pH ABG Total CO2 ABG O2 Saturation ABG Base Excess ABG Hemoglobin ABG Carboxyhemoglobin POC ABG HHb (Measured) ABG Methemoglobin Bran Test A-a O2 Difference Respiratory Index Hgb O2 Saturation Vent Mode Mechanical Rate FiO2 Tidal Volume PEEP Sodium 137 Potassium 4.6 Chloride 109 H Carbon Dioxide 17 L Anion Gap 16 BUN 37 H Creatinine 1.8 H Est GFR ( Amer) 46 Est GFR (Non-Af Amer) 38 POC Glucose (mg/dL) 180 H Random Glucose 176 H D Hemoglobin A1c Calcium 8.5 L Total Bilirubin 0.8 AST 80 H D ALT 80 H D Alkaline Phosphatase 73 Troponin I Total Protein 6.7 Albumin 3.5 Globulin 3.2 Albumin/Globulin Ratio 1.1 Procalcitonin Ur L.pneumophila Ag Mycoplasma pneumon IgM 03/21/18 03/21/18 03/21/18 04:41 04:58 06:41 WBC RBC Hgb Hct MCV MCH MCHC RDW Plt Count MPV Neut % (Auto) Lymph % (Auto) [place] % (Auto) Eos % (Auto) Baso % (Auto) Neut # (Auto) Lymph # (Auto) [place] # (Auto) Eos # (Auto) Baso # (Auto) Neutrophils % (Manual) Band Neutrophils % Lymphocytes % (Manual) Monocytes % (Manual) Platelet Estimate Large Platelets Anisocytosis (manual) PT 12.9 H INR 1.2 APTT 94 H D Puncture Site Rr pCO2 33 L pO2 125 H HCO3 21.2 ABG pH 7.38 ABG Total CO2 20.5 L ABG O2 Saturation 99.3 H ABG Base Excess -4.8 L ABG Hemoglobin 11.7 ABG Carboxyhemoglobin 1.5 POC ABG HHb (Measured) 0.7 ABG Methemoglobin 1.5 Bran Test Pos A-a O2 Difference 119.0 Respiratory Index 1.0 Hgb O2 Saturation 96.3 Vent Mode Prvc Mechanical Rate 24 FiO2 40.0 Tidal Volume 500 PEEP 5 Sodium Potassium Chloride Carbon Dioxide Anion Gap BUN Creatinine Est GFR ( Amer) Est GFR (Non-Af Amer) POC Glucose (mg/dL) 187 H Random Glucose Hemoglobin A1c Calcium Total Bilirubin AST ALT Alkaline Phosphatase Troponin I Total Protein Albumin Globulin Albumin/Globulin Ratio Procalcitonin Ur L.pneumophila Ag Mycoplasma pneumon IgM 03/21/18 08:50 WBC RBC Hgb Hct MCV MCH MCHC RDW Plt Count MPV Neut % (Auto) Lymph % (Auto) [place] % (Auto) Eos % (Auto) Baso % (Auto) Neut # (Auto) Lymph # (Auto) [place] # (Auto) Eos # (Auto) Baso # (Auto) Neutrophils % (Manual) Band Neutrophils % Lymphocytes % (Manual) Monocytes % (Manual) Platelet Estimate Large Platelets Anisocytosis (manual) PT INR APTT Puncture Site pCO2 pO2 HCO3 ABG pH ABG Total CO2 ABG O2 Saturation ABG Base Excess ABG Hemoglobin ABG Carboxyhemoglobin POC ABG HHb (Measured) ABG Methemoglobin Bran Test A-a O2 Difference Respiratory Index Hgb O2 Saturation Vent Mode Mechanical Rate FiO2 Tidal Volume PEEP Sodium Potassium Chloride Carbon Dioxide Anion Gap BUN Creatinine Est GFR ( Amer) Est GFR (Non-Af Amer) POC Glucose (mg/dL) Random Glucose Hemoglobin A1c Calcium Total Bilirubin AST ALT Alkaline Phosphatase Troponin I 1.1500 H* Total Protein Albumin Globulin Albumin/Globulin Ratio Procalcitonin Ur L.pneumophila Ag Mycoplasma pneumon IgM
--- NOTE | 2018-03-21 14:39 | CP.PCM.PN ---
Subjective - Date & Time of Evaluation Date of Evaluation: 03/21/18 Time of Evaluation: 14:38 - Subjective Subjective: see Consult note completion of note cancelled by EHR Impression:[id number] due to cardiac arrest and contrast procedure check urine Na and urine analysis check renal sonogram Decrease zosyn hold on cardiac cath until stable Objective - Vital Signs/Intake and Output Vital Signs (last 24 hours): Temp Pulse Resp BP Pulse Ox 98.3 F 69 15 149/97 H 100 03/21/18 04:00 03/21/18 13:52 03/21/18 13:52 03/21/18 13:52 03/21/18 13:52 Intake and Output: 03/21/18 03/21/18 06:59 18:59 Intake Total 559.373 695.352 Output Total 360 Balance 199.373 695.352 - Medications Medications: Current Medications Albuterol/Ipratropium (Duoneb 3 Mg/0.5 Mg (3 Ml) Ud) 3 ml INH RQ6 [facility] Last Admin: 03/21/18 13:49 Dose: 3 ml Amiodarone HCl (Cordarone) 200 mg PO BID [facility] Last Admin: 03/21/18 09:08 Dose: 200 mg Aspirin (Aspirin Chewable) 81 mg PO DAILY [facility] Last Admin: 03/21/18 09:08 Dose: 81 mg Piperacillin Sod/Tazobactam Sod (Zosyn 3.375 Gm Iv Premix) 3.375 gm in 50 mls @ 100 mls/hr IVPB Q6H [facility]; Protocol Last Admin: 03/21/18 12:38 Dose: 100 mls/hr Heparin Sodium/Sodium Chloride (Heparin 00727 Units/250ml 1/2 Normal Saline) 25,000 units in 250 mls @ 9.036 mls/hr IV .Q24H PRN; Protocol PRN Reason: ADJUST RATE PER PROTOCOL Last Admin: 03/20/18 15:30 Dose: 12 units/kg/hr, 9.036 mls/hr Propofol (Diprivan) 1,000 mg in 100 mls @ 2.259 mls/hr IV .Q24H PRN; Protocol PRN Reason: TITRATE PER MD ORDER Last Titration: 03/21/18 11:00 Dose: 10 mcg/kg/min, 4.518 mls/hr Sodium Chloride (Sodium Chloride 0.9%) 1,000 mls @ 100 mls/hr IV .Q10H [facility] Last Admin: 03/21/18 11:50 Dose: 100 mls/hr Insulin Aspart (Novolog) 0 unit SC Q6 [facility]; Protocol Last Admin: 03/21/18 12:45 Dose: 2 units Methylprednisolone (Solu-Medrol) 60 mg IVP TID [facility] Last Admin: 03/21/18 09:08 Dose: 60 mg Metoprolol Tartrate (Lopressor) 25 mg PO BID [facility] Last Admin: 03/21/18 09:08 Dose: 25 mg Pantoprazole Sodium (Protonix Inj) 40 mg IVP DAILY [facility] Last Admin: 03/21/18 09:08 Dose: 40 mg - Labs Labs: 03/21/18 04:41 03/21/18 04:41 PT 12.9 SECONDS (9.7-12.2) H 03/21/18 04:41 INR 1.2 03/21/18 04:41 APTT 94 SECONDS (21-34) H D 03/21/18 04:41
--- NOTE | 2018-03-21 14:41 | CP.PCM.CON ---
History of Present Illness - History of Present Illness History of Present Illness: Neurology consult dictated. Mr. Javed is a 67 yr old male who is s/p cardiac arrest and is now more arouseable off sedation. He is tracking, with corneals, dolls eyes, and gag. he is also moving his left arm. Plan: 1. EEG for one hour 2. repeat ct head am. Thank you Dr gaston Past Patient History - Past Medical History & Family History Past Medical History?: Yes - Past Social History Smoking Status: Former Smoker - CARDIAC Hx Cardiac Disorders: Yes Hx Hypertension: Yes - PULMONARY Hx Respiratory Disorders: No - NEUROLOGICAL Hx Neurological Disorder: No - HEENT Hx HEENT Problems: No - RENAL Hx Chronic Kidney Disease: No - ENDOCRINE/METABOLIC Hx Endocrine Disorders: Yes Hx Diabetes Mellitus Type 2: Yes - HEMATOLOGICAL/ONCOLOGICAL Hx Blood Disorders: No - INTEGUMENTARY Hx Dermatological Problems: No - MUSCULOSKELETAL/RHEUMATOLOGICAL Hx Falls: No - GASTROINTESTINAL Hx Gastrointestinal Disorders: No - GENITOURINARY/GYNECOLOGICAL Hx Genitourinary Disorders: Yes Hx Prostate Problems: Yes (bph) - PSYCHIATRIC Hx Substance Use: No - SURGICAL HISTORY Hx Surgeries: Yes Other/Comment: cystoscopy - ANESTHESIA Hx Anesthesia: Yes Hx Anesthesia Reactions: No Hx Malignant Hyperthermia: No Has any member of the family had a problem w/ anesthesia?: No Meds Allergies/Adverse Reactions: Allergies Allergy/AdvReac Type Severity Reaction Status Date / Time No Known Allergies Allergy Verified 12/12/15 11:59 - Medications Medications: Current Medications Albuterol/Ipratropium (Duoneb 3 Mg/0.5 Mg (3 Ml) Ud) 3 ml INH RQ6 [facility] Last Admin: 03/21/18 13:49 Dose: 3 ml Amiodarone HCl (Cordarone) 200 mg PO BID [facility] [place] Last Admin: 03/21/18 09:08 Dose: 200 mg Aspirin (Aspirin Chewable) 81 mg PO DAILY [facility] [place] Last Admin: 03/21/18 09:08 Dose: 81 mg Piperacillin Sod/Tazobactam Sod (Zosyn 3.375 Gm Iv Premix) 3.375 gm in 50 mls @ 100 mls/hr IVPB Q6H [facility]; Protocol Last Admin: 03/21/18 12:38 Dose: 100 mls/hr Heparin Sodium/Sodium Chloride (Heparin 20092 Units/250ml 1/2 Normal Saline) 25,000 units in 250 mls @ 9.036 mls/hr IV .Q24H [facility]N; Protocol PRN Reason: ADJUST RATE PER PROTOCOL Last Admin: 03/20/18 15:30 Dose: 12 units/kg/hr, 9.036 mls/hr Propofol (Diprivan) 1,000 mg in 100 mls @ 2.259 mls/hr IV .Q24H PRN; Protocol PRN Reason: TITRATE PER MD ORDER Last Titration: 03/21/18 11:00 Dose: 10 mcg/kg/min, 4.518 mls/hr Sodium Chloride (Sodium Chloride 0.9%) 1,000 mls @ 100 mls/hr IV .Q10H [facility] Last Admin: 03/21/18 11:50 Dose: 100 mls/hr Insulin Aspart (Novolog) 0 unit SC Q6 [facility]; Protocol Last Admin: 03/21/18 12:45 Dose: 2 units Methylprednisolone (Solu-Medrol) 60 mg IVP TID [facility] Last Admin: 03/21/18 09:08 Dose: 60 mg Metoprolol Tartrate (Lopressor) 25 mg PO BID [facility] Last Admin: 03/21/18 09:08 Dose: 25 mg Pantoprazole Sodium (Protonix Inj) 40 mg IVP DAILY [facility] [place] Last Admin: 03/21/18 09:08 Dose: 40 mg Results - Vital Signs Recent Vital Signs: Last Vital Signs Temp 98.3 F 03/21/18 04:00 Pulse 69 03/21/18 13:52 Resp 15 03/21/18 13:52 BP 149/97 H 03/21/18 13:52 Pulse Ox 100 03/21/18 13:52 - Labs Result Diagrams: 03/21/18 04:41 03/21/18 04:41 Labs: Laboratory Results - last 24 hr 03/20/18 03/20/18 03/20/18 05:49 10:18 10:18 WBC RBC Hgb Hct MCV MCH MCHC RDW Plt Count MPV Neut % (Auto) Lymph % (Auto) [place] % (Auto) Eos % (Auto) Baso % (Auto) Neut # (Auto) Lymph # (Auto) [place] # (Auto) Eos # (Auto) Baso # (Auto) Neutrophils % (Manual) Band Neutrophils % Lymphocytes % (Manual) Monocytes % (Manual) Platelet Estimate Large Platelets Anisocytosis (manual) PT INR APTT Puncture Site pCO2 pO2 HCO3 ABG pH ABG Total CO2 ABG O2 Saturation ABG Base Excess ABG Hemoglobin ABG Carboxyhemoglobin POC ABG HHb (Measured) ABG Methemoglobin Bran Test A-a O2 Difference Respiratory Index Hgb O2 Saturation Vent Mode Mechanical Rate FiO2 Tidal Volume PEEP Sodium Potassium Chloride Carbon Dioxide Anion Gap BUN Creatinine Est GFR ( Amer) Est GFR (Non-Af Amer) POC Glucose (mg/dL) Random Glucose Hemoglobin A1c 7.4 H Calcium Total Bilirubin AST ALT Alkaline Phosphatase Troponin I Total Protein Albumin Globulin Albumin/Globulin Ratio Procalcitonin Ur L.pneumophila Ag Negative Mycoplasma pneumon IgM Negative 03/20/18 03/20/18 03/20/18 10:18 11:12 14:33 WBC RBC Hgb Hct MCV MCH MCHC RDW Plt Count MPV Neut % (Auto) Lymph % (Auto) [place] % (Auto) Eos % (Auto) Baso % (Auto) Neut # (Auto) Lymph # (Auto) [place] # (Auto) Eos # (Auto) Baso # (Auto) Neutrophils % (Manual) Band Neutrophils % Lymphocytes % (Manual) Monocytes % (Manual) Platelet Estimate Large Platelets Anisocytosis (manual) PT INR APTT Puncture Site pCO2 pO2 HCO3 ABG pH ABG Total CO2 ABG O2 Saturation ABG Base Excess ABG Hemoglobin ABG Carboxyhemoglobin POC ABG HHb (Measured) ABG Methemoglobin Bran Test A-a O2 Difference Respiratory Index Hgb O2 Saturation Vent Mode Mechanical Rate FiO2 Tidal Volume PEEP Sodium Potassium Chloride Carbon Dioxide Anion Gap BUN Creatinine Est GFR ( Amer) Est GFR (Non-Af Amer) POC Glucose (mg/dL) 210 H Random Glucose Hemoglobin A1c Calcium Total Bilirubin AST ALT Alkaline Phosphatase Troponin I 11.2000 H* Total Protein Albumin Globulin Albumin/Globulin Ratio Procalcitonin 1.86 H Ur L.pneumophila Ag Mycoplasma pneumon IgM 03/20/18 03/20/18 03/20/18 15:08 17:48 22:01 WBC RBC Hgb Hct MCV MCH MCHC RDW Plt Count MPV Neut % (Auto) Lymph % (Auto) [place] % (Auto) Eos % (Auto) Baso % (Auto) Neut # (Auto) Lymph # (Auto) [place] # (Auto) Eos # (Auto) Baso # (Auto) Neutrophils % (Manual) Band Neutrophils % Lymphocytes % (Manual) Monocytes % (Manual) Platelet Estimate Large Platelets Anisocytosis (manual) PT 11.7 INR 1.1 APTT 32 75 H D Puncture Site pCO2 pO2 HCO3 ABG pH ABG Total CO2 ABG O2 Saturation ABG Base Excess ABG Hemoglobin ABG Carboxyhemoglobin POC ABG HHb (Measured) ABG Methemoglobin Bran Test A-a O2 Difference Respiratory Index Hgb O2 Saturation Vent Mode Mechanical Rate FiO2 Tidal Volume PEEP Sodium Potassium Chloride Carbon Dioxide Anion Gap BUN Creatinine Est GFR ( Amer) Est GFR (Non-Af Amer) POC Glucose (mg/dL) 177 H Random Glucose Hemoglobin A1c Calcium Total Bilirubin AST ALT Alkaline Phosphatase Troponin I Total Protein Albumin Globulin Albumin/Globulin Ratio Procalcitonin Ur L.pneumophila Ag Mycoplasma pneumon IgM 03/20/18 03/21/18 03/21/18 23:39 04:41 04:41 WBC 18.6 H RBC 4.04 L Hgb 11.6 L Hct 35.9 MCV 88.8 MCH 28.6 MCHC 32.2 L RDW 14.1 Plt Count 149 MPV 9.0 Neut % (Auto) 92.3 H Lymph % (Auto) 3.7 L [place] % (Auto) 3.5 Eos % (Auto) 0.0 Baso % (Auto) 0.5 Neut # (Auto) 17.2 H Lymph # (Auto) 0.7 L [place] # (Auto) 0.7 Eos # (Auto) 0.0 Baso # (Auto) 0.1 Neutrophils % (Manual) 87 H Band Neutrophils % 7 H Lymphocytes % (Manual) 3 L Monocytes % (Manual) 3 Platelet Estimate Normal Large Platelets Present Anisocytosis (manual) Slight PT INR APTT Puncture Site pCO2 pO2 HCO3 ABG pH ABG Total CO2 ABG O2 Saturation ABG Base Excess ABG Hemoglobin ABG Carboxyhemoglobin POC ABG HHb (Measured) ABG Methemoglobin Bran Test A-a O2 Difference Respiratory Index Hgb O2 Saturation Vent Mode Mechanical Rate FiO2 Tidal Volume PEEP Sodium 137 Potassium 4.6 Chloride 109 H Carbon Dioxide 17 L Anion Gap 16 BUN 37 H Creatinine 1.8 H Est GFR ( Amer) 46 Est GFR (Non-Af Amer) 38 POC Glucose (mg/dL) 180 H Random Glucose 176 H D Hemoglobin A1c Calcium 8.5 L Total Bilirubin 0.8 AST 80 H D ALT 80 H D Alkaline Phosphatase 73 Troponin I Total Protein 6.7 Albumin 3.5 Globulin 3.2 Albumin/Globulin Ratio 1.1 Procalcitonin Ur L.pneumophila Ag Mycoplasma pneumon IgM 03/21/18 03/21/18 03/21/18 04:41 04:58 06:41 WBC RBC Hgb Hct MCV MCH MCHC RDW Plt Count MPV Neut % (Auto) Lymph % (Auto) [place] % (Auto) Eos % (Auto) Baso % (Auto) Neut # (Auto) Lymph # (Auto) [place] # (Auto) Eos # (Auto) Baso # (Auto) Neutrophils % (Manual) Band Neutrophils % Lymphocytes % (Manual) Monocytes % (Manual) Platelet Estimate Large Platelets Anisocytosis (manual) PT 12.9 H INR 1.2 APTT 94 H D Puncture Site Rr pCO2 33 L pO2 125 H HCO3 21.2 ABG pH 7.38 ABG Total CO2 20.5 L ABG O2 Saturation 99.3 H ABG Base Excess -4.8 L ABG Hemoglobin 11.7 ABG Carboxyhemoglobin 1.5 POC ABG HHb (Measured) 0.7 ABG Methemoglobin 1.5 Bran Test Pos A-a O2 Difference 119.0 Respiratory Index 1.0 Hgb O2 Saturation 96.3 Vent Mode Prvc Mechanical Rate 24 FiO2 40.0 Tidal Volume 500 PEEP 5 Sodium Potassium Chloride Carbon Dioxide Anion Gap BUN Creatinine Est GFR ( Amer) Est GFR (Non-Af Amer) POC Glucose (mg/dL) 187 H Random Glucose Hemoglobin A1c Calcium Total Bilirubin AST ALT Alkaline Phosphatase Troponin I Total Protein Albumin Globulin Albumin/Globulin Ratio Procalcitonin Ur L.pneumophila Ag Mycoplasma pneumon IgM 03/21/18 08:50 WBC RBC Hgb Hct MCV MCH MCHC RDW Plt Count MPV Neut % (Auto) Lymph % (Auto) [place] % (Auto) Eos % (Auto) Baso % (Auto) Neut # (Auto) Lymph # (Auto) [place] # (Auto) Eos # (Auto) Baso # (Auto) Neutrophils % (Manual) Band Neutrophils % Lymphocytes % (Manual) Monocytes % (Manual) Platelet Estimate Large Platelets Anisocytosis (manual) PT INR APTT Puncture Site pCO2 pO2 HCO3 ABG pH ABG Total CO2 ABG O2 Saturation ABG Base Excess ABG Hemoglobin ABG Carboxyhemoglobin POC ABG HHb (Measured) ABG Methemoglobin Bran Test A-a O2 Difference Respiratory Index Hgb O2 Saturation Vent Mode Mechanical Rate FiO2 Tidal Volume PEEP Sodium Potassium Chloride Carbon Dioxide Anion Gap BUN Creatinine Est GFR ( Amer) Est GFR (Non-Af Amer) POC Glucose (mg/dL) Random Glucose Hemoglobin A1c Calcium Total Bilirubin AST ALT Alkaline Phosphatase Troponin I 1.1500 H* Total Protein Albumin Globulin Albumin/Globulin Ratio Procalcitonin Ur L.pneumophila Ag Mycoplasma pneumon IgM
[2018-03-21 17:00] LABS: SQUAMOUS EPITHIAL 1 /hpf (0-5); URINE AMORPHOUS SEDIMENT MODERATE /ul (<OCC); URINE BILIRUBIN NEGATIVE (NEGATIVE); URINE BLOOD 2+ (NEGATIVE); URINE CLARITY Hazy (Clear); URINE COLOR Yellow (YELLOW); URINE GLUCOSE (UA) NORMAL (Normal); URINE LEUKOCYTE ESTERASE TRACE Leu/uL (Negative); URINE PROTEIN 2+ mg/dL (NEGATIVE); URINE UROBILINOGEN NORMAL mg/dL (0.2-1.0)
[2018-03-21] MEDS: Heparin25000 units/250ml 1/2NS 25,000 UNITS/250 ML BAG IV PRN (17:12)
--- NOTE | 2018-03-21 17:18 | US ---
Date of service: 03/21/2018 PROCEDURE: Ultrasound of the Kidneys HISTORY: [facility] COMPARISON: None available. TECHNIQUE: Sonogram of the kidneys. FINDINGS: Limited study. RIGHT KIDNEY: Measures: 9.4 x 4.3 x 4.7 cm. Echogenic renal parenchyma. Perinephric fluid. No hydronephrosis or obstructing calculus. LEFT KIDNEY: Measures: 9.8 x 4.5 x 5.7 cm. Echogenic renal parenchyma. Perinephric fluid. 1.0 x 0.8 x 1.1 cm mid to upper pole complex cyst. OTHER FINDINGS: Melvin catheter within an under distended urinary bladder. IMPRESSION: Echogenic renal parenchyma may be seen in the setting of medical renal disease. Perinephric fluid bilaterally. 1.0 x 0.8 x 1.1 cm left mid to upper pole complex renal cyst. Melvin catheter within under distended urinary bladder.
[2018-03-21] MEDS: Piperacill/Tazo 2.25gm in Dex 2.25 GM/50 ML BAG IVPB SCH (18:10)
[2018-03-21 18:52] LABS: ALB/GLOB RATIO 1.1 (1.0-2.1); ALBUMIN 3.3 g/dL (3.5-5.0); CALCIUM 8.1 mg/dl (8.6-10.4)
--- NOTE | 2018-03-21 21:39 | CP.PCM.CON ---
History of Present Illness - History of Present Illness History of Present Illness: dictated Past Patient History - Past Medical History & Family History Past Medical History?: Yes - Past Social History Smoking Status: Former Smoker - CARDIAC Hx Cardiac Disorders: Yes Hx Hypertension: Yes - PULMONARY Hx Respiratory Disorders: No - NEUROLOGICAL Hx Neurological Disorder: No - HEENT Hx HEENT Problems: No - RENAL Hx Chronic Kidney Disease: No - ENDOCRINE/METABOLIC Hx Endocrine Disorders: Yes Hx Diabetes Mellitus Type 2: Yes - HEMATOLOGICAL/ONCOLOGICAL Hx Blood Disorders: No - INTEGUMENTARY Hx Dermatological Problems: No - MUSCULOSKELETAL/RHEUMATOLOGICAL Hx Falls: No - GASTROINTESTINAL Hx Gastrointestinal Disorders: No - GENITOURINARY/GYNECOLOGICAL Hx Genitourinary Disorders: Yes Hx Prostate Problems: Yes (bph) - PSYCHIATRIC Hx Substance Use: No - SURGICAL HISTORY Hx Surgeries: Yes Other/Comment: cystoscopy - ANESTHESIA Hx Anesthesia: Yes Hx Anesthesia Reactions: No Hx Malignant Hyperthermia: No Has any member of the family had a problem w/ anesthesia?: No Meds Allergies/Adverse Reactions: Allergies Allergy/AdvReac Type Severity Reaction Status Date / Time No Known Allergies Allergy Verified 12/12/15 11:59 - Medications Medications: Current Medications Albuterol/Ipratropium (Duoneb 3 Mg/0.5 Mg (3 Ml) Ud) 3 ml INH RQ6 [facility] Last Admin: 03/21/18 20:12 Dose: 3 ml Amiodarone HCl (Cordarone) 200 mg PO BID [facility] Last Admin: 03/21/18 17:11 Dose: 200 mg Aspirin (Aspirin Chewable) 81 mg PO DAILY [facility] Last Admin: 03/21/18 09:08 Dose: 81 mg Heparin Sodium/Sodium Chloride (Heparin 37322 Units/250ml 1/2 Normal Saline) 25,000 units in 250 mls @ 9.036 mls/hr IV .Q24H PRN; Protocol PRN Reason: ADJUST RATE PER PROTOCOL Last Admin: 03/21/18 17:12 Dose: 12 units/kg/hr, 9.036 mls/hr Propofol (Diprivan) 1,000 mg in 100 mls @ 2.259 mls/hr IV .Q24H PRN; Protocol PRN Reason: TITRATE PER MD ORDER Last Titration: 03/21/18 11:00 Dose: 10 mcg/kg/min, 4.518 mls/hr Sodium Chloride (Sodium Chloride 0.9%) 1,000 mls @ 100 mls/hr IV .Q10H [facility] Last Admin: 03/21/18 11:50 Dose: 100 mls/hr Piperacillin Sod/Tazobactam Sod (Zosyn 2.25 Gm Iv Premix) 2.25 gm in 50 mls @ 100 mls/hr IVPB Q6H [facility]; Protocol Last Admin: 03/21/18 18:10 Dose: 100 mls/hr Insulin Aspart (Novolog) 0 unit SC Q6 [facility]; Protocol Last Admin: 03/21/18 18:09 Dose: 3 units Methylprednisolone (Solu-Medrol) 60 mg IVP TID [facility] Last Admin: 03/21/18 17:12 Dose: 60 mg Metoprolol Tartrate (Lopressor) 25 mg PO BID [facility] Last Admin: 03/21/18 17:11 Dose: 25 mg Pantoprazole Sodium (Protonix Inj) 40 mg IVP DAILY [facility] Last Admin: 03/21/18 09:08 Dose: 40 mg Results - Vital Signs Recent Vital Signs: Last Vital Signs Temp 98.3 F 03/21/18 20:00 Pulse 67 03/21/18 19:53 Resp 20 03/21/18 19:53 BP 140/83 03/21/18 19:53 Pulse Ox 100 03/21/18 20:00 - Labs Result Diagrams: 03/21/18 04:41 03/21/18 18:28 Labs: Laboratory Results - last 24 hr 03/20/18 03/20/18 03/20/18 05:49 22:01 23:39 WBC RBC Hgb Hct MCV MCH MCHC RDW Plt Count MPV Neut % (Auto) Lymph % (Auto) [place] % (Auto) Eos % (Auto) Baso % (Auto) Neut # (Auto) Lymph # (Auto) [place] # (Auto) Eos # (Auto) Baso # (Auto) Neutrophils % (Manual) Band Neutrophils % Lymphocytes % (Manual) Monocytes % (Manual) Platelet Estimate Large Platelets Anisocytosis (manual) PT INR APTT 75 H D Puncture Site pCO2 pO2 HCO3 ABG pH ABG Total CO2 ABG O2 Saturation ABG Base Excess ABG Hemoglobin ABG Carboxyhemoglobin POC ABG HHb (Measured) ABG Methemoglobin Bran Test A-a O2 Difference Respiratory Index Hgb O2 Saturation Vent Mode Mechanical Rate FiO2 Tidal Volume PEEP Sodium Potassium Chloride Carbon Dioxide Anion Gap BUN Creatinine Est GFR ( Amer) Est GFR (Non-Af Amer) POC Glucose (mg/dL) 180 H Random Glucose Hemoglobin A1c 7.4 H Calcium Total Bilirubin AST ALT Alkaline Phosphatase Troponin I Total Protein Albumin Globulin Albumin/Globulin Ratio Urine Color Urine Clarity Urine pH Ur Specific [place] Urine Protein Urine Glucose (UA) Urine Ketones Urine Blood Urine Nitrate Urine Bilirubin Urine Urobilinogen Ur Leukocyte Esterase Urine WBC (Auto) Urine RBC (Auto) Ur Squamous Epith Cells Amorphous Sediment Granular Casts (Auto) Ur Random Sodium 03/21/18 03/21/18 03/21/18 04:41 04:41 04:41 WBC 18.6 H RBC 4.04 L Hgb 11.6 L Hct 35.9 MCV 88.8 MCH 28.6 MCHC 32.2 L RDW 14.1 Plt Count 149 MPV 9.0 Neut % (Auto) 92.3 H Lymph % (Auto) 3.7 L [place] % (Auto) 3.5 Eos % (Auto) 0.0 Baso % (Auto) 0.5 Neut # (Auto) 17.2 H Lymph # (Auto) 0.7 L [place] # (Auto) 0.7 Eos # (Auto) 0.0 Baso # (Auto) 0.1 Neutrophils % (Manual) 87 H Band Neutrophils % 7 H Lymphocytes % (Manual) 3 L Monocytes % (Manual) 3 Platelet Estimate Normal Large Platelets Present Anisocytosis (manual) Slight PT 12.9 H INR 1.2 APTT 94 H D Puncture Site pCO2 pO2 HCO3 ABG pH ABG Total CO2 ABG O2 Saturation ABG Base Excess ABG Hemoglobin ABG Carboxyhemoglobin POC ABG HHb (Measured) ABG Methemoglobin Bran Test A-a O2 Difference Respiratory Index Hgb O2 Saturation Vent Mode Mechanical Rate FiO2 Tidal Volume PEEP Sodium 137 Potassium 4.6 Chloride 109 H Carbon Dioxide 17 L Anion Gap 16 BUN 37 H Creatinine 1.8 H Est GFR ( Amer) 46 Est GFR (Non-Af Amer) 38 POC Glucose (mg/dL) Random Glucose 176 H D Hemoglobin A1c Calcium 8.5 L Total Bilirubin 0.8 AST 80 H D ALT 80 H D Alkaline Phosphatase 73 Troponin I Total Protein 6.7 Albumin 3.5 Globulin 3.2 Albumin/Globulin Ratio 1.1 Urine Color Urine Clarity Urine pH Ur Specific [place] Urine Protein Urine Glucose (UA) Urine Ketones Urine Blood Urine Nitrate Urine Bilirubin Urine Urobilinogen Ur Leukocyte Esterase Urine WBC (Auto) Urine RBC (Auto) Ur Squamous Epith Cells Amorphous Sediment Granular Casts (Auto) Ur Random Sodium 03/21/18 03/21/18 03/21/18 04:58 06:41 08:50 WBC RBC Hgb Hct MCV MCH MCHC RDW Plt Count MPV Neut % (Auto) Lymph % (Auto) [place] % (Auto) Eos % (Auto) Baso % (Auto) Neut # (Auto) Lymph # (Auto) [place] # (Auto) Eos # (Auto) Baso # (Auto) Neutrophils % (Manual) Band Neutrophils % Lymphocytes % (Manual) Monocytes % (Manual) Platelet Estimate Large Platelets Anisocytosis (manual) PT INR APTT Puncture Site Rr pCO2 33 L pO2 125 H HCO3 21.2 ABG pH 7.38 ABG Total CO2 20.5 L ABG O2 Saturation 99.3 H ABG Base Excess -4.8 L ABG Hemoglobin 11.7 ABG Carboxyhemoglobin 1.5 POC ABG HHb (Measured) 0.7 ABG Methemoglobin 1.5 Bran Test Pos A-a O2 Difference 119.0 Respiratory Index 1.0 Hgb O2 Saturation 96.3 Vent Mode Prvc Mechanical Rate 24 FiO2 40.0 Tidal Volume 500 PEEP 5 Sodium Potassium Chloride Carbon Dioxide Anion Gap BUN Creatinine Est GFR ( Amer) Est GFR (Non-Af Amer) POC Glucose (mg/dL) 187 H Random Glucose Hemoglobin A1c Calcium Total Bilirubin AST ALT Alkaline Phosphatase Troponin I 1.1500 H* Total Protein Albumin Globulin Albumin/Globulin Ratio Urine Color Urine Clarity Urine pH Ur Specific [place] Urine Protein Urine Glucose (UA) Urine Ketones Urine Blood Urine Nitrate Urine Bilirubin Urine Urobilinogen Ur Leukocyte Esterase Urine WBC (Auto) Urine RBC (Auto) Ur Squamous Epith Cells Amorphous Sediment Granular Casts (Auto) Ur Random Sodium 03/21/18 03/21/18 03/21/18 11:06 16:49 16:49 WBC RBC Hgb Hct MCV MCH MCHC RDW Plt Count MPV Neut % (Auto) Lymph % (Auto) [place] % (Auto) Eos % (Auto) Baso % (Auto) Neut # (Auto) Lymph # (Auto) [place] # (Auto) Eos # (Auto) Baso # (Auto) Neutrophils % (Manual) Band Neutrophils % Lymphocytes % (Manual) Monocytes % (Manual) Platelet Estimate Large Platelets Anisocytosis (manual) PT INR APTT Puncture Site pCO2 pO2 HCO3 ABG pH ABG Total CO2 ABG O2 Saturation ABG Base Excess ABG Hemoglobin ABG Carboxyhemoglobin POC ABG HHb (Measured) ABG Methemoglobin Bran Test A-a O2 Difference Respiratory Index Hgb O2 Saturation Vent Mode Mechanical Rate FiO2 Tidal Volume PEEP Sodium Potassium Chloride Carbon Dioxide Anion Gap BUN Creatinine Est GFR ( Amer) Est GFR (Non-Af Amer) POC Glucose (mg/dL) 193 H Random Glucose Hemoglobin A1c Calcium Total Bilirubin AST ALT Alkaline Phosphatase Troponin I Total Protein Albumin Globulin Albumin/Globulin Ratio Urine Color Yellow Urine Clarity Hazy Urine pH 5.0 Ur Specific [place] 1.025 Urine Protein 2+ H Urine Glucose (UA) Normal Urine Ketones Negative Urine Blood 2+ H Urine Nitrate Negative Urine Bilirubin Negative Urine Urobilinogen Normal Ur Leukocyte Esterase Trace Urine WBC (Auto) 40 H Urine RBC (Auto) 60 H Ur Squamous Epith Cells 1 Amorphous Sediment Moderate H Granular Casts (Auto) 1-3 Ur Random Sodium 42 03/21/18 03/21/18 17:34 18:28 WBC RBC Hgb Hct MCV MCH MCHC RDW Plt Count MPV Neut % (Auto) Lymph % (Auto) [place] % (Auto) Eos % (Auto) Baso % (Auto) Neut # (Auto) Lymph # (Auto) [place] # (Auto) Eos # (Auto) Baso # (Auto) Neutrophils % (Manual) Band Neutrophils % Lymphocytes % (Manual) Monocytes % (Manual) Platelet Estimate Large Platelets Anisocytosis (manual) PT INR APTT Puncture Site pCO2 pO2 HCO3 ABG pH ABG Total CO2 ABG O2 Saturation ABG Base Excess ABG Hemoglobin ABG Carboxyhemoglobin POC ABG HHb (Measured) ABG Methemoglobin Bran Test A-a O2 Difference Respiratory Index Hgb O2 Saturation Vent Mode Mechanical Rate FiO2 Tidal Volume PEEP Sodium 138 Potassium 4.3 Chloride 111 H Carbon Dioxide 19 L Anion Gap 13 BUN 43 H Creatinine 1.7 H Est GFR ( Amer) 49 Est GFR (Non-Af Amer) 41 POC Glucose (mg/dL) 221 H Random Glucose 217 H D Hemoglobin A1c Calcium 8.1 L Total Bilirubin 0.8 AST 55 ALT 70 Alkaline Phosphatase 75 Troponin I Total Protein 6.3 Albumin 3.3 L Globulin 3.1 Albumin/Globulin Ratio 1.1 Urine Color Urine Clarity Urine pH Ur Specific [place] Urine Protein Urine Glucose (UA) Urine Ketones Urine Blood Urine Nitrate Urine Bilirubin Urine Urobilinogen Ur Leukocyte Esterase Urine WBC (Auto) Urine RBC (Auto) Ur Squamous Epith Cells Amorphous Sediment Granular Casts (Auto) Ur Random Sodium
[2018-03-22] MEDS: Sodium Chloride 0.9% 1,000 ML IV SCH ×3 (00:16→09:43)
[2018-03-22] MEDS: Piperacill/Tazo 2.25gm in Dex 2.25 GM/50 ML BAG IVPB SCH ×4 (00:17→17:59)
[2018-03-22] MEDS: Albuterol-Ipratrop 3 mg / 0.5 (3 ml) UD INH SCH ×4 (02:17→20:18)
[2018-03-22 05:37] LABS: ABG ALLEN TEST POS; ARTERIAL BLOOD GAS HCO3 22.5 mmol/L (21-28); ARTERIAL BLOOD GAS HEMOGLOBIN 10.9 g/dL (11.7-17.4); ARTERIAL BLOOD GAS O2 SAT 99.3 % (95-98); ARTERIAL BLOOD GAS PCO2 33 mm/Hg (35-45); ARTERIAL BLOOD GAS PH 7.41 (7.35-7.45); ARTERIAL BLOOD GAS PO2 136 mm/Hg (80-100); ARTERIAL BLOOD GAS TCO2 21.9 mmol/L (22-28)
[2018-03-22 06:01] LABS: HEMOGLOBIN 10.8 g/dL (12.0-18.0); LYMPH # 0.5 K/uL (1.0-4.3); LYMPH % 2.6 % (20.0-40.0); MEAN CELL VOLUME 89.6 fL (80.0-94.0); MEAN CORPUSCULAR HEMOGLOBIN 29.5 pg (27.0-31.0); MEAN CORPUSCULAR HGB CONC 32.9 g/dL (33.0-37.0); MEAN PLATELET VOLUME 9.8 fL (7.2-11.7); MONO # 1.1 K/uL (0.0-0.8); MONO % 5.6 % (0.0-10.0); NEUT # 17.6 K/uL (1.8-7.0); NEUT % 91.8 % (50.0-75.0); PLATELET COUNT 138 K/uL (130-400); RBC 3.66 Mil/uL (4.40-5.90); RED CELL DISTRIBUTION WIDTH 13.7 % (11.5-14.5); WHITE BLOOD COUNT 19.2 K/uL (4.8-10.8)
[2018-03-22] MEDS: (Novolog) Insulin Aspart, Recombinant 100 u/ml 10 ml vial SC SCH ×3 (06:19→17:54)
[2018-03-22 06:27] LABS: ALB/GLOB RATIO 1.1 (1.0-2.1); ALBUMIN 3.2 g/dL (3.5-5.0); CALCIUM 8.3 mg/dl (8.6-10.4)
--- NOTE | 2018-03-22 07:43 | CON ---
DATE: 03/21/2018 HISTORY OF PRESENT ILLNESS: This patient is a 67-year-old [place] male. He has a history of pulmonary fibrosis, hypertension, diabetes. He was admitted with shortness of breath. He came in on 03/19/2018. He denied any fever, chills, nausea, vomiting, diarrhea. He can only exert two blocks and he would get short of breath as he has pulmonary fibrosis. On the same day, before he could be transported to the medical-surgical floor in the ED around 06:37, he had white complex V-tach and became pulseless. They did CPR. He was shocked, and he had code blue, and he was resuscitated and was brought to the ICU, and he is presently intubated in ICU, and I am asked to evaluate for antibiotics. He is on Zosyn, however. His past medical history is significant for hypertension, diabetes mellitus, pulmonary fibrosis. Now, his troponins are elevated because he had CPR initiated, and his medications at home that he takes are metformin 500 b.i.d. and lisinopril. ALLERGIES: HE IS NOT ALLERGIC TO ANY MEDICINE. SURGICAL HISTORY: He has surgical history of cystoscopy in the past. FAMILY HISTORY: Negative. SOCIAL HISTORY: Significant for a former smoker. He used to chew some tobacco; and he has EtOH and he is social EtOH drinker. [place] He denies any drug abuse. He lives alone, all his family is in [place] right now. There is a family member who was sitting outside. I am told it is his son who came from [place], so we are not sure, and HE IS NOT ALLERGIC TO ANY MEDICINE WHEN HE WAS ADMITTED. He denied any chills or any fatigue or fever. He does suffer from pulmonary fibrosis and has dyspnea on exertion; and had no constipation, diarrhea, nausea, or vomiting. No neurological symptoms before. No skin problems. No joint issues. MEDICATIONS: At the present time, he is on metoprolol. He is on Solu-Medrol. They are adding pantoprazole, Zosyn. He is on propofol sodium, and he is getting IV fluids 1000. PHYSICAL EXAMINATION: GENERAL: I find, he was intubated; not able to get any review of system myself. VITAL SIGNS: T-max is 98.3, pulse 67, last blood pressure on the patient is 140/83. He was also seen by neurologist, respirations are 24. He is on a ventilator. HEENT: Head is atraumatic, normocephalic, and sedated. NECK: Supple. LUNGS: Decreased breath sounds. No crackles or rales. No wheezing at this time. GENERAL: He responds to pain, however. HEART: S1, S2 regular. No murmurs appreciated. ABDOMEN: Soft, nontender. No guarding. No rigidity present. EXTREMITIES: Have no edema, clubbing, or cyanosis noted. Labs are noted. White count is 18.6 today, hemoglobin is 11.6, hematocrit 35.9, platelet count is 149 and his white count is elevated but neutrophils are 87, bands are 7. Chemistry shows sodium is 138, potassium 4.3, BUN is 43, creatinine is 1.7, and Legionella Mycoplasma was negative. Toxicology was done, that screen was negative. Alcohol was negative. UA shows 2+ proteins, 2+ blood, and wbc is 40, rbc is 60, and INR is 1.2. Renal ultrasound was done which showed echogenic renal pattern, may be seen in the setting of medical renal disease, perinephric fluid bilaterally, upper pole complex renal cyst and Melvin catheter within under distended urinary bladder and what they said about perinephric, renal ultrasound showed echogenic kidney, and he had a chest CT, and the chest CT shows redemonstration of stable findings in the lung, most compatible with lobar emphysema in the upper lobe with component of pulmonary fibrosis. No acute findings. He has pulmonary fibrosis. I think it more seems like cardiac issues at this time. We will continue with Zosyn, get a sputum culture, and follow with the labs, and we will follow with you. Right now, I will continue with Zosyn and a sputum has been sent according to the nurse. The patient is status post cardiac arrest, pulmonary fibrosis. UA showed wbc's 40 and rbc's 60. We will continue for now and monitor urine culture report. Rizwana Reddy MD
[2018-03-22] MEDS: Propofol 10 mg/ml 1,000 MG/100 ML VIAL IV PRN ×3 (07:45→17:30)
--- NOTE | 2018-03-22 08:03 | RAD ---
Chest x-ray single frontal view HISTORY: Endotracheal tube placement. COMPARISON: 03/21/2018 FINDINGS: Endotracheal tube extending into the midthoracic trachea. NG tube coiled in the stomach. Moderate to severe venous congestion with confluent consolidative changes at the left lung base. Bilateral hilar prominence. Enlarged ectatic aorta. Cardiomegaly. Rounded radiopaque densities in the left hilar region may represent calcified lymph nodes. Degenerative changes in the spine. IMPRESSION: Endotracheal tube extending into the midthoracic trachea. NG tube coiled in the stomach. Moderate to severe venous congestion with confluent consolidative changes at the left lung base. Bilateral hilar prominence. Enlarged ectatic aorta. Cardiomegaly. Rounded radiopaque densities in the left hilar region may represent calcified lymph nodes.
--- NOTE | 2018-03-22 08:06 | CP.PCM.PN ---
Subjective - Date & Time of Evaluation Date of Evaluation: 03/22/18 Time of Evaluation: 07:50 - Subjective Subjective: This is my first time seeing patient, I am taking over for my colleague and we discussed the case and I had to review the previous notes. Family present in the room as well. This is a 67 year old male with a history of COPD/Pulmonary fibrosis, and diabetes who on 03/19/2018 went into Vfib arrest/cardiac arrest/NSTEMI and was intubated. There has been concern for anoxic brain injury as he intially was minimally responsive. This morning he was awake very agitated, it was difficult to ekg tech if he was responsive to commands. He is moving his arms. Per food and beverage server he may need cardiac catherization soon however florscopy is said to be non functional at the moment at [facility] ([facility] and he maybe in need of transfer. Objective - Vital Signs/Intake and Output Vital Signs (last 24 hours): Temp Pulse Resp BP Pulse Ox 98.5 F 76 26 H 155/83 H 99 03/22/18 04:00 03/22/18 05:52 03/22/18 05:52 03/22/18 05:52 03/22/18 05:52 Intake and Output: 03/22/18 03/22/18 06:59 18:59 Intake Total 1801.5 10 Output Total 525 Balance 1276.5 10 - Medications Medications: Current Medications Albuterol/Ipratropium (Duoneb 3 Mg/0.5 Mg (3 Ml) Ud) 3 ml INH RQ6 [facility] Last Admin: 03/22/18 07:40 Dose: 3 ml Amiodarone HCl (Cordarone) 200 mg PO BID [facility] Last Admin: 03/21/18 17:11 Dose: 200 mg Aspirin (Aspirin Chewable) 81 mg PO DAILY [facility] Last Admin: 03/21/18 09:08 Dose: 81 mg Heparin Sodium/Sodium Chloride (Heparin 48980 Units/250ml 1/2 Normal Saline) 25,000 units in 250 mls @ 9.036 mls/hr IV .Q24H PRN; Protocol PRN Reason: ADJUST RATE PER PROTOCOL Last Admin: 03/21/18 17:12 Dose: 12 units/kg/hr, 9.036 mls/hr Propofol (Diprivan) 1,000 mg in 100 mls @ 2.259 mls/hr IV .Q24H PRN; Protocol PRN Reason: TITRATE PER MD ORDER Last Titration: 03/22/18 07:42 Dose: Infused Sodium Chloride (Sodium Chloride 0.9%) 1,000 mls @ 100 mls/hr IV .Q10H [facility] Last Admin: 03/22/18 00:16 Dose: 100 mls/hr Piperacillin Sod/Tazobactam Sod (Zosyn 2.25 Gm Iv Premix) 2.25 gm in 50 mls @ 100 mls/hr IVPB Q6H [facility]; Protocol Last Admin: 03/22/18 06:20 Dose: 100 mls/hr Insulin Aspart (Novolog) 0 unit SC Q6 [facility]; Protocol Last Admin: 03/22/18 06:19 Dose: 2 units Methylprednisolone (Solu-Medrol) 60 mg IVP TID [facility] Last Admin: 03/21/18 17:12 Dose: 60 mg Metoprolol Tartrate (Lopressor) 25 mg PO BID [facility] Last Admin: 03/21/18 17:11 Dose: 25 mg Midazolam HCl (Versed Inj) 2 mg IVP ONCE ONE Stop: 03/22/18 07:58 Pantoprazole Sodium (Protonix Inj) 40 mg IVP DAILY [facility] Last Admin: 03/21/18 09:08 Dose: 40 mg - Labs Labs: 03/22/18 05:52 03/22/18 05:52 PT 12.9 SECONDS (9.7-12.2) H 03/21/18 04:41 INR 1.2 03/21/18 04:41 APTT 47 SECONDS (21-34) H D 03/22/18 05:52 - Constitutional Appears: Agitated, Chronically Ill - Eye Exam Eye Exam: Normal appearance - ENT Exam ENT Exam: Mucous Membranes Moist - Respiratory Exam Respiratory Exam: Rales, Rhonchi Additional comments: Currently intubated - GI/Abdominal Exam GI & Abdominal Exam: Soft. absent: Tenderness - Exam Additional comments: Flannery cathter, flannery bag clear yellow urine - Neurological Exam Neurological Exam: Altered Neuro motor strength exam: Left Upper Extremity: 4, Right Upper Extremity: 4 - Psychiatric Exam Psychiatric exam: Agitated, Anxious - Skin Skin Exam: Normal Color, Warm Assessment and Plan - Assessment and Plan (Free Text) Assessment: Unresponsiveness/- suspecting anoxic brain encephalopathy. 03/22: This morning was awake and agitated despite being on a propofol ggt. It is being titrated at this moment. There is a pending repeat CT for tommorrow. Also EEG spoke to Dr Menjivar Neurologist. 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 Patient remains on heparin ggt and amiodarone ASA and BB Initial rhythm asytole ,Epi x 3 given, went into VF/VT requiring shock and Amiodarone 300mg Elevated troponin,EKG LBBB(old) Currently in NSR on oral Amiodarone 200mg BID ,off Amiodarone drip,Hemodynamically stable,not on pressors,on metoprolol 25mg po bid ,asprin and heparin drip d/w food and beverage server Bossman this afternoon. Food Sales Clerk will follow his creatinine and discuss with his family about cath tomorrow Echo reviewed with food and beverage server in the ICU, preserved LV function, griselda-septal hypokinesis Leukocytosis,possible pneumonia/lung infection 03/22: Currently the cultures are negative at this time. Remains on IV abx Zosyn WBC remains elevated, maybe from cardiac arrest event. Acute renal failure 03/22: This morning creatine decreased to 1.6 and urine output was 1065 Currently on IV fluids Nephrology consult appreciated Elevated troponin/NSTEMI Elevated troponin and s/p CRP LBBB-old r/o coronary disease. on heparin,continue asprin,heparin,metoprolol follow up with food and beverage server regarding cardiac cath Severe pulmonary fibrosis CT chest centrilobular emphysema and upper lobe pulmonary fobrosis DR Salazar for pulmonary consult do RF,JENNIFER,ESR On IV steroid r/o infection, On zosyn DM monitor sugar Hypertension hold lisinopril,monitor BP Supportive care DVt prophylaxis is on heparin GI prophy is on protonix feeding-NG Advance directives Harlan Mejia [phone]
[2018-03-22] MEDS ORDERED: Midazolam 2 MG/2 ML VIAL IVP ONE (09:00)
[2018-03-22 09:01] LABS: BANDS 3 % (0-2); LYMPHOCYTE 2 % (20-40); MONOCYTE 4 % (0-10); NEUTROPHIL 91 % (50-75); PLATELET ESTIMATE NORMAL (NORMAL); TOTAL CELLS COUNTED 100
[2018-03-22 09:02] LABS: ANISOCYTOSIS SLIGHT; GIANT PLATELETS PRESENT; HYPOCHROMIC SLIGHT; POIKILOCYTOSIS SLIGHT
--- NOTE | 2018-03-22 09:26 | CARD ---
APPROVED REPORT Date of service: 03/20/2018 EXAM: Two-dimensional and M-mode echocardiogram with Doppler and color Doppler. Other Information Quality : AverageRhythm : NSR INDICATION COPD RISK FACTORS Hypertension Diabetes 2D DIMENSIONS IVSd1.4 (0.7-1.1cm)LVDd4.4 (3.9-5.9cm) PWd1.0 (0.7-1.1cm)LA [id number] (18-58mL) M-Mode DIMENSIONS Left Atrium (MM)2.73 (2.5-4.0cm)Aortic Root3.32 (2.2-3.7cm) Aortic Cusp Exc.2.29 (1.5-2.0cm) Aortic Valve AoV Peak Gfruptwp008.8cm/Zion Peak GR.10mmHg Mitral Valve E/A ratio0.0 TDI Lateral E' Peak V7.45cm/sMedial E' Peak V4.93cm/sE/Lateral E'0.0 E/Medial E'0.0 Tricuspid Valve TR Peak [id number]/sTR Peak Gr.[id number] LEFT VENTRICLE The left ventricle is normal size. There is normal left ventricular wall thickness. The left ventricular function is normal. The left ventricular ejection fraction is within the normal range. About 65% No regional wall motion abnormalities noted. Transmitral Doppler flow pattern is Grade I-abnormal relaxation pattern. No left ventricle thrombus noted on this study. There is no ventricular septal defect visualized. There is no left ventricular aneurysm. There is no mass noted in the left ventricle. RIGHT VENTRICLE The right ventricle is normal size. There is normal right ventricular wall thickness. The right ventricular systolic function is normal. ATRIA The left atrium size is normal. The right atrium size is normal. The interatrial septum is intact with no evidence for an atrial septal defect. AORTIC VALVE The aortic valve is normal in structure and function. No aortic regurgitation is present. There is no aortic valvular stenosis. There is no aortic valvular vegetation. MITRAL VALVE The mitral valve is normal in structure and function. There is no evidence of mitral valve prolapse. There is no mitral valve stenosis. There is no mitral valve regurgitation noted. TRICUSPID VALVE The tricuspid valve is normal in structure and function. There is no tricuspid valve regurgitation noted. There is no tricuspid valve prolapse or vegetation. There is no tricuspid valve stenosis. PULMONIC VALVE The pulmonary valve is normal in structure and function. There is no pulmonic valvular regurgitation. There is no pulmonic valvular stenosis. GREAT VESSELS The aortic root is normal in size. The ascending aorta is normal in size. The pulmonary artery is normal. The IVC is normal in size and collapses >50% with inspiration. PERICARDIAL EFFUSION The pericardium appears normal. There is no pleural effusion. <Conclusion> The left ventricular function is normal. The left ventricular ejection fraction is within the normal range. About 65% Transmitral Doppler flow pattern is Grade I-abnormal relaxation pattern. Normal Doppler
[2018-03-22] MEDS: MethylPREDNISolone 40 mg Vial IVP SCH ×2 (09:42→23:02)
--- NOTE | 2018-03-22 09:53 | CP.PCM.PN ---
Subjective - Date & Time of Evaluation Date of Evaluation: 03/22/18 Time of Evaluation: 09:51 - Subjective Subjective: Pt aler, fignting respirator. EEG being performed Objective - Vital Signs/Intake and Output Vital Signs (last 24 hours): Temp Pulse Resp BP Pulse Ox 99 F 92 H 27 H 151/92 H 100 03/22/18 08:00 03/22/18 08:03 03/22/18 08:03 03/22/18 09:43 03/22/18 08:03 Intake and Output: 03/22/18 03/22/18 06:59 18:59 Intake Total 1801.5 308.3 Output Total 525 50 Balance 1276.5 258.3 - Medications Medications: Current Medications Albuterol/Ipratropium (Duoneb 3 Mg/0.5 Mg (3 Ml) Ud) 3 ml INH RQ6 [facility] Last Admin: 03/22/18 07:40 Dose: 3 ml Amiodarone HCl (Cordarone) 200 mg PO BID [facility] Last Admin: 03/22/18 09:43 Dose: 200 mg Aspirin (Aspirin Chewable) 81 mg PO DAILY [facility] Last Admin: 03/22/18 09:43 Dose: 81 mg Heparin Sodium/Sodium Chloride (Heparin 02827 Units/250ml 1/2 Normal Saline) 25,000 units in 250 mls @ 9.036 mls/hr IV .Q24H PRN; Protocol PRN Reason: ADJUST RATE PER PROTOCOL Last Admin: 03/21/18 17:12 Dose: 12 units/kg/hr, 9.036 mls/hr Propofol (Diprivan) 1,000 mg in 100 mls @ 2.259 mls/hr IV .Q24H PRN; Protocol PRN Reason: TITRATE PER MD ORDER Last Titration: 03/22/18 08:15 Dose: 45 mcg/kg/min, 20.33 mls/hr Piperacillin Sod/Tazobactam Sod (Zosyn 2.25 Gm Iv Premix) 2.25 gm in 50 mls @ 100 mls/hr IVPB Q6H [facility]; Protocol Last Admin: 03/22/18 06:20 Dose: 100 mls/hr Sodium Chloride (Sodium Chloride 0.9%) 1,000 mls @ 50 mls/hr IV .Q20H [facility] Last Admin: 03/22/18 09:43 Dose: 50 mls/hr Insulin Aspart (Novolog) 0 unit SC Q6 [facility]; Protocol Last Admin: 03/22/18 06:19 Dose: 2 units Methylprednisolone (Solu-Medrol) 40 mg IVP Q12 [facility] Last Admin: 03/22/18 09:42 Dose: 40 mg Metoprolol Tartrate (Lopressor) 25 mg PO BID [facility] Last Admin: 03/22/18 09:43 Dose: 25 mg Pantoprazole Sodium (Protonix Inj) 40 mg IVP DAILY [facility] Last Admin: 03/22/18 09:44 Dose: 40 mg - Labs Labs: 03/22/18 05:52 03/22/18 05:52 PT 12.9 SECONDS (9.7-12.2) H 03/21/18 04:41 INR 1.2 03/21/18 04:41 APTT 47 SECONDS (21-34) H D 03/22/18 05:52 - Constitutional Appears: No Acute Distress, Combative - Head Exam Head Exam: ATRAUMATIC - Eye Exam Eye Exam: EOMI - ENT Exam ENT Exam: Mucous Membranes Moist - Respiratory Exam Respiratory Exam: Decreased Breath Sounds - Cardiovascular Exam Cardiovascular Exam: REGULAR RHYTHM - GI/Abdominal Exam GI & Abdominal Exam: Normal Bowel Sounds - Exam External exam: NORMAL EXTERNAL EXAM - Back Exam Back Exam: NORMAL INSPECTION - Neurological Exam Neurological Exam: Awake - Skin Skin Exam: Normal Color Assessment and Plan - Assessment and Plan (Free Text) Plan: Pt has had non stemi with VT arrest, now awakening. Cr 1.6 in my view cxr unchanged For cath today.
--- NOTE | 2018-03-22 10:08 | CP.CCUPN ---
CCU Subjective - Physician Review Subjective (Free Text): 03/22/18 10:05 Critical Care Progress Note for Dr. Mohan's service Patient seen and examined at bedside. Patient intubated but alert and awake. Limited ROS due to intubation. Critical Care Time Spent (in minutes): 35 CCU Objective - Vital Signs / Intake & Output Vital Signs (Last 4 hours): Vital Signs Temp Pulse Resp BP Pulse Ox 03/22/18 09:43 151/92 H 03/22/18 08:03 92 H 27 H 148/74 100 03/22/18 08:00 99 F 100 Intake and Output (Last 8hrs): Intake & Output 03/21/18 03/22/18 03/22/18 22:59 06:59 14:59 Intake Total 1423.5 1242 308.3 Output Total 385 340 50 Balance 1038.5 902 258.3 Weight 165 lb 12.8 oz Intake: IV 250 50 20 Intake, IV Amount 853.5 872 238.3 Left Hand 72 72 18 Right Antecubital 750 800 200 Right Hand 31.5 0 20.3 Tube Feeding 320 320 50 Output: Urine 385 340 50 Urethral (Melvin) 385 340 50 - Physical Exam Head: Positive for: Atraumatic, Normocephalic Pupils: Positive for: PERRL Extroacular Muscles: Positive for: EOMI Mouth: Positive for: Dry, Other (ETT tube in place) Respiratory/Chest: Positive for: Decreased Breath Sounds. Negative for: Acc essory Muscle Use Cardiovascular: Positive for: Normal S1, S2, Irregular Rhythm, Bradycardic Abdomen: Positive for: Normal Bowel Sounds. Negative for: Tenderness, Distention Upper Extremity: Positive for: Normal Inspection. Negative for: Cyanosis, Edema Lower Extremity: Positive for: Normal Inspection. Negative for: Edema Skin: Positive for: Dry, Normal Color - Medications Active Medications: Active Medications Generic Name Dose Route Start Last Admin Trade Name Freq PRN Reason Stop Dose Admin Albuterol/Ipratropium 3 ml 03/20/18 14:00 03/22/18 07:40 Duoneb 3 Mg/0.5 Mg (3 Ml) Ud INH 3 ml RQ6 DOUG Administration Amiodarone HCl 200 mg 03/20/18 19:15 03/22/18 09:43 Cordarone PO 200 mg BID DOUG Administration Aspirin 81 mg 03/20/18 10:00 03/22/18 09:43 Aspirin Chewable PO 81 mg DAILY DOUG Administration Heparin Sodium/Sodium Chloride 25,000 units in 250 mls @ 9.036 mls/hr 03/20/18 15:00 03/21/18 17:12 Heparin 34269 Units/250ml 1/2 Normal Saline IV 12 units/kg/hr .Q24H PRN 9.036 mls/hr ADJUST RATE PER PROTOCOL Administration Protocol 12 UNITS/KG/HR Propofol 1,000 mg in 100 mls @ 2.259 mls/hr 03/20/18 21:02 03/22/18 08:15 Diprivan IV 45 mcg/kg/min .Q24H PRN 20.33 mls/hr TITRATE PER MD ORDER Titration Protocol 5 MCG/KG/MIN Piperacillin Sod/Tazobactam Sod 2.25 gm in 50 mls @ 100 mls/hr 03/21/18 19:00 03/22/18 06:20 Zosyn 2.25 Gm Iv Premix IVPB 100 mls/hr Q6H DOUG Administration Protocol Sodium Chloride 1,000 mls @ 50 mls/hr 03/22/18 09:11 03/22/18 09:43 Sodium Chloride 0.9% IV 50 mls/hr .Q20H DOUG Administration Insulin Aspart 0 unit 03/19/18 20:00 03/22/18 06:19 Novolog SC 2 units Q6 DOUG Administration Protocol Methylprednisolone 40 mg 03/22/18 10:00 03/22/18 09:42 Solu-Medrol IVP 40 mg Q12 DOUG Administration Metoprolol Tartrate 25 mg 03/20/18 10:00 03/22/18 09:43 Lopressor PO 25 mg BID DOUG Administration Pantoprazole Sodium 40 mg 03/20/18 10:00 03/22/18 09:44 Protonix Inj IVP 40 mg DAILY DOUG Administration - Patient Studies Lab Studies: Microbiology Studies 03/19/18 20:30 Blood Culture - Preliminary Blood NO GROWTH AFTER 48 HOURS 03/19/18 21:10 Blood Culture - Preliminary Blood NO GROWTH AFTER 48 HOURS 03/19/18 01:54 MRSA Culture (Admit) - Final Nose MRSA NOT DETECTED 03/19/18 01:54 Urine Culture - Final Urine No Growth (<1,000 CFU/ML) Lab Studies 03/22/18 03/22/18 03/22/18 Range/Units 05:52 05:52 05:52 WBC (4.8-10.8) K/uL RBC (4.40-5.90) Mil/uL Hgb (12.0-18.0) g/dL Hct (35.0-51.0) % MCV (80.0-94.0) fL MCH (27.0-31.0) pg MCHC (33.0-37.0) g/dL RDW (11.5-14.5) % Plt Count (130-400) K/uL MPV (7.2-11.7) fL Neut % (Auto) (50.0-75.0) % Lymph % (Auto) (20.0-40.0) % Nye % (Auto) (0.0-10.0) % Eos % (Auto) (0.0-4.0) % Baso % (Auto) (0.0-2.0) % Neut # (Auto) (1.8-7.0) K/uL Lymph # (Auto) (1.0-4.3) K/uL Nye # (Auto) (0.0-0.8) K/uL Eos # (Auto) (0.0-0.7) K/uL Baso # (Auto) (0.0-0.2) K/uL Neutrophils % (Manual) (50-75) % Band Neutrophils % (0-2) % Lymphocytes % (Manual) (20-40) % Monocytes % (Manual) (0-10) % Platelet Estimate (NORMAL) Giant Platelets Hypochromasia (manual) Poikilocytosis (manual Anisocytosis (manual) APTT 47 H D (21-34) SECONDS Puncture Site pCO2 (35-45) mm/Hg pO2 (80-100) mm/Hg HCO3 (21-28) mmol/L ABG pH (7.35-7.45) ABG Total CO2 (22-28) mmol/L ABG O2 Saturation (95-98) % ABG Base Excess (-2.0-3.0) mmol/L ABG Hemoglobin (11.7-17.4) g/dL ABG Carboxyhemoglobin (0.5-1.5) % POC ABG HHb (Measured) (0.0-5.0) % ABG Methemoglobin (0.0-3.0) % Bran Test A-a O2 Difference mm/Hg Respiratory Index Hgb O2 Saturation (95.0-98.0) % Vent Mode Mechanical Rate FiO2 % Tidal Volume PEEP Sodium 140 (132-148) mmol/L Potassium 4.5 (3.6-5.2) mmol/L Chloride 114 H (98-107) mmol/L Carbon Dioxide 21 L (22-30) mmol/L Anion Gap 9 L (10-20) BUN 47 H (9-20) mg/dL Creatinine 1.6 H (0.8-1.5) mg/dL Est GFR ( Amer) 53 Est GFR (Non-Af Amer) 43 POC Glucose (mg/dL) (65-110) mg/dL Random Glucose 209 H (75-110) mg/dL Hemoglobin A1c (4.2-6.5) % Calcium 8.3 L (8.6-10.4) mg/dl Phosphorus 2.9 (2.5-4.5) mg/dL Magnesium 2.5 H (1.6-2.3) mg/dL Total Bilirubin 0.8 (0.2-1.3) mg/dL AST 45 (17-59) U/L ALT 65 (21-72) U/L Alkaline Phosphatase 76 (38-126) U/L Total Protein 6.1 L (6.3-8.3) g/dL Albumin 3.2 L (3.5-5.0) g/dL Globulin 3.0 (2.2-3.9) gm/dL Albumin/Globulin Ratio 1.1 (1.0-2.1) Urine Color (YELLOW) Urine Clarity (Clear) Urine pH (5.0-8.0) Ur Specific [place] (1.003-1.030) Urine Protein (NEGATIVE) mg/dL Urine Glucose (UA) (Normal) mg/dL Urine Ketones (NEGATIVE) mg/dL Urine Blood (NEGATIVE) Urine Nitrate (NEGATIVE) Urine Bilirubin (NEGATIVE) Urine Urobilinogen (0.2-1.0) mg/dL Ur Leukocyte Esterase (Negative) Asher/uL Urine WBC (Auto) (0-5) /hpf Urine RBC (Auto) (0-3) /hpf Ur Squamous Epith Cells (0-5) /hpf Amorphous Sediment (<OCC) /ul Granular Casts (Auto) (0-1) /lpf Ur Random Sodium mmol/L 03/22/18 03/22/18 03/22/18 Range/Units 05:52 05:27 05:11 WBC 19.2 H (4.8-10.8) K/uL RBC 3.66 L (4.40-5.90) Mil/uL Hgb 10.8 L (12.0-18.0) g/dL Hct 32.7 L (35.0-51.0) % MCV 89.6 (80.0-94.0) fL MCH 29.5 (27.0-31.0) pg MCHC 32.9 L (33.0-37.0) g/dL RDW 13.7 (11.5-14.5) % Plt Count 138 (130-400) K/uL MPV 9.8 (7.2-11.7) fL Neut % (Auto) 91.8 H (50.0-75.0) % Lymph % (Auto) 2.6 L (20.0-40.0) % Nye % (Auto) 5.6 (0.0-10.0) % Eos % (Auto) 0.0 (0.0-4.0) % Baso % (Auto) 0.0 (0.0-2.0) % Neut # (Auto) 17.6 H (1.8-7.0) K/uL Lymph # (Auto) 0.5 L (1.0-4.3) K/uL Nye # (Auto) 1.1 H (0.0-0.8) K/uL Eos # (Auto) 0.0 (0.0-0.7) K/uL Baso # (Auto) 0.0 (0.0-0.2) K/uL Neutrophils % (Manual) 91 H (50-75) % Band Neutrophils % 3 H (0-2) % Lymphocytes % (Manual) 2 L (20-40) % Monocytes % (Manual) 4 (0-10) % Platelet Estimate Normal (NORMAL) Giant Platelets Present Hypochromasia (manual) Slight Poikilocytosis (manual Slight Anisocytosis (manual) Slight APTT (21-34) SECONDS Puncture Site Rr pCO2 33 L (35-45) mm/Hg pO2 136 H (80-100) mm/Hg HCO3 22.5 (21-28) mmol/L ABG pH 7.41 (7.35-7.45) ABG Total CO2 21.9 L (22-28) mmol/L ABG O2 Saturation 99.3 H (95-98) % ABG Base Excess -3.1 L (-2.0-3.0) mmol/L ABG Hemoglobin 10.9 L (11.7-17.4) g/dL ABG Carboxyhemoglobin 1.7 H (0.5-1.5) % POC ABG HHb (Measured) 0.7 (0.0-5.0) % ABG Methemoglobin 1.4 (0.0-3.0) % Bran Test Pos A-a O2 Difference 108.0 mm/Hg Respiratory Index 0.8 Hgb O2 Saturation 96.3 (95.0-98.0) % Vent Mode Prvc Mechanical Rate 24 FiO2 40.0 % Tidal Volume 500 PEEP 5 Sodium (132-148) mmol/L Potassium (3.6-5.2) mmol/L Chloride (98-107) mmol/L Carbon Dioxide (22-30) mmol/L Anion Gap (10-20) BUN (9-20) mg/dL Creatinine (0.8-1.5) mg/dL Est GFR ( Amer) Est GFR (Non-Af Amer) POC Glucose (mg/dL) 197 H (65-110) mg/dL Random Glucose (75-110) mg/dL Hemoglobin A1c (4.2-6.5) % Calcium (8.6-10.4) mg/dl Phosphorus (2.5-4.5) mg/dL Magnesium (1.6-2.3) mg/dL Total Bilirubin (0.2-1.3) mg/dL AST (17-59) U/L ALT (21-72) U/L Alkaline Phosphatase (38-126) U/L Total Protein (6.3-8.3) g/dL Albumin (3.5-5.0) g/dL Globulin (2.2-3.9) gm/dL Albumin/Globulin Ratio (1.0-2.1) Urine Color (YELLOW) Urine Clarity (Clear) Urine pH (5.0-8.0) Ur Specific [place] (1.003-1.030) Urine Protein (NEGATIVE) mg/dL Urine Glucose (UA) (Normal) mg/dL Urine Ketones (NEGATIVE) mg/dL Urine Blood (NEGATIVE) Urine Nitrate (NEGATIVE) Urine Bilirubin (NEGATIVE) Urine Urobilinogen (0.2-1.0) mg/dL Ur Leukocyte Esterase (Negative) Asher/uL Urine WBC (Auto) (0-5) /hpf Urine RBC (Auto) (0-3) /hpf Ur Squamous Epith Cells (0-5) /hpf Amorphous Sediment (<OCC) /ul Granular Casts (Auto) (0-1) /lpf Ur Random Sodium mmol/L 03/21/18 03/21/18 03/21/18 Range/Units 23:31 18:28 17:34 WBC (4.8-10.8) K/uL RBC (4.40-5.90) Mil/uL Hgb (12.0-18.0) g/dL Hct (35.0-51.0) % MCV (80.0-94.0) fL MCH (27.0-31.0) pg MCHC (33.0-37.0) g/dL RDW (11.5-14.5) % Plt Count (130-400) K/uL MPV (7.2-11.7) fL Neut % (Auto) (50.0-75.0) % Lymph % (Auto) (20.0-40.0) % Nye % (Auto) (0.0-10.0) % Eos % (Auto) (0.0-4.0) % Baso % (Auto) (0.0-2.0) % Neut # (Auto) (1.8-7.0) K/uL Lymph # (Auto) (1.0-4.3) K/uL Nye # (Auto) (0.0-0.8) K/uL Eos # (Auto) (0.0-0.7) K/uL Baso # (Auto) (0.0-0.2) K/uL Neutrophils % (Manual) (50-75) % Band Neutrophils % (0-2) % Lymphocytes % (Manual) (20-40) % Monocytes % (Manual) (0-10) % Platelet Estimate (NORMAL) Giant Platelets Hypochromasia (manual) Poikilocytosis (manual Anisocytosis (manual) APTT (21-34) SECONDS Puncture Site pCO2 (35-45) mm/Hg pO2 (80-100) mm/Hg HCO3 (21-28) mmol/L ABG pH (7.35-7.45) ABG Total CO2 (22-28) mmol/L ABG O2 Saturation (95-98) % ABG Base Excess (-2.0-3.0) mmol/L ABG Hemoglobin (11.7-17.4) g/dL ABG Carboxyhemoglobin (0.5-1.5) % POC ABG HHb (Measured) (0.0-5.0) % ABG Methemoglobin (0.0-3.0) % Bran Test A-a O2 Difference mm/Hg Respiratory Index Hgb O2 Saturation (95.0-98.0) % Vent Mode Mechanical Rate FiO2 % Tidal Volume PEEP Sodium 138 (132-148) mmol/L Potassium 4.3 (3.6-5.2) mmol/L Chloride 111 H (98-107) mmol/L Carbon Dioxide 19 L (22-30) mmol/L Anion Gap 13 (10-20) BUN 43 H (9-20) mg/dL Creatinine 1.7 H (0.8-1.5) mg/dL Est GFR ( Amer) 49 Est GFR (Non-Af Amer) 41 POC Glucose (mg/dL) 220 H 221 H (65-110) mg/dL Random Glucose 217 H D (75-110) mg/dL Hemoglobin A1c (4.2-6.5) % Calcium 8.1 L (8.6-10.4) mg/dl Phosphorus (2.5-4.5) mg/dL Magnesium (1.6-2.3) mg/dL Total Bilirubin 0.8 (0.2-1.3) mg/dL AST 55 (17-59) U/L ALT 70 (21-72) U/L Alkaline Phosphatase 75 (38-126) U/L Total Protein 6.3 (6.3-8.3) g/dL Albumin 3.3 L (3.5-5.0) g/dL Globulin 3.1 (2.2-3.9) gm/dL Albumin/Globulin Ratio 1.1 (1.0-2.1) Urine Color (YELLOW) Urine Clarity (Clear) Urine pH (5.0-8.0) Ur Specific [place] (1.003-1.030) Urine Protein (NEGATIVE) mg/dL Urine Glucose (UA) (Normal) mg/dL Urine Ketones (NEGATIVE) mg/dL Urine Blood (NEGATIVE) Urine Nitrate (NEGATIVE) Urine Bilirubin (NEGATIVE) Urine Urobilinogen (0.2-1.0) mg/dL Ur Leukocyte Esterase (Negative) Asher/uL Urine WBC (Auto) (0-5) /hpf Urine RBC (Auto) (0-3) /hpf Ur Squamous Epith Cells (0-5) /hpf Amorphous Sediment (<OCC) /ul Granular Casts (Auto) (0-1) /lpf Ur Random Sodium mmol/L 03/21/18 03/21/18 03/21/18 Range/Units 16:49 16:49 11:06 WBC (4.8-10.8) K/uL RBC (4.40-5.90) Mil/uL Hgb (12.0-18.0) g/dL Hct (35.0-51.0) % MCV (80.0-94.0) fL MCH (27.0-31.0) pg MCHC (33.0-37.0) g/dL RDW (11.5-14.5) % Plt Count (130-400) K/uL MPV (7.2-11.7) fL Neut % (Auto) (50.0-75.0) % Lymph % (Auto) (20.0-40.0) % Nye % (Auto) (0.0-10.0) % Eos % (Auto) (0.0-4.0) % Baso % (Auto) (0.0-2.0) % Neut # (Auto) (1.8-7.0) K/uL Lymph # (Auto) (1.0-4.3) K/uL Nye # (Auto) (0.0-0.8) K/uL Eos # (Auto) (0.0-0.7) K/uL Baso # (Auto) (0.0-0.2) K/uL Neutrophils % (Manual) (50-75) % Band Neutrophils % (0-2) % Lymphocytes % (Manual) (20-40) % Monocytes % (Manual) (0-10) % Platelet Estimate (NORMAL) Giant Platelets Hypochromasia (manual) Poikilocytosis (manual Anisocytosis (manual) APTT (21-34) SECONDS Puncture Site pCO2 (35-45) mm/Hg pO2 (80-100) mm/Hg HCO3 (21-28) mmol/L ABG pH (7.35-7.45) ABG Total CO2 (22-28) mmol/L ABG O2 Saturation (95-98) % ABG Base Excess (-2.0-3.0) mmol/L ABG Hemoglobin (11.7-17.4) g/dL ABG Carboxyhemoglobin (0.5-1.5) % POC ABG HHb (Measured) (0.0-5.0) % ABG Methemoglobin (0.0-3.0) % Bran Test A-a O2 Difference mm/Hg Respiratory Index Hgb O2 Saturation (95.0-98.0) % Vent Mode Mechanical Rate FiO2 % Tidal Volume PEEP Sodium (132-148) mmol/L Potassium (3.6-5.2) mmol/L Chloride (98-107) mmol/L Carbon Dioxide (22-30) mmol/L Anion Gap (10-20) BUN (9-20) mg/dL Creatinine (0.8-1.5) mg/dL Est GFR ( Amer) Est GFR (Non-Af Amer) POC Glucose (mg/dL) 193 H (65-110) mg/dL Random Glucose (75-110) mg/dL Hemoglobin A1c (4.2-6.5) % Calcium (8.6-10.4) mg/dl Phosphorus (2.5-4.5) mg/dL Magnesium (1.6-2.3) mg/dL Total Bilirubin (0.2-1.3) mg/dL AST (17-59) U/L ALT (21-72) U/L Alkaline Phosphatase (38-126) U/L Total Protein (6.3-8.3) g/dL Albumin (3.5-5.0) g/dL Globulin (2.2-3.9) gm/dL Albumin/Globulin Ratio (1.0-2.1) Urine Color Yellow (YELLOW) Urine Clarity Hazy (Clear) Urine pH 5.0 (5.0-8.0) Ur Specific [place] 1.025 (1.003-1.030) Urine Protein 2+ H (NEGATIVE) mg/dL Urine Glucose (UA) Normal (Normal) mg/dL Urine Ketones Negative (NEGATIVE) mg/dL Urine Blood 2+ H (NEGATIVE) Urine Nitrate Negative (NEGATIVE) Urine Bilirubin Negative (NEGATIVE) Urine Urobilinogen Normal (0.2-1.0) mg/dL Ur Leukocyte Esterase Trace (Negative) Asher/uL Urine WBC (Auto) 40 H (0-5) /hpf Urine RBC (Auto) 60 H (0-3) /hpf Ur Squamous Epith Cells 1 (0-5) /hpf Amorphous Sediment Moderate H (<OCC) /ul Granular Casts (Auto) 1-3 (0-1) /lpf Ur Random Sodium 42 mmol/L 03/20/18 Range/Units 05:49 WBC (4.8-10.8) K/uL RBC (4.40-5.90) Mil/uL Hgb (12.0-18.0) g/dL Hct (35.0-51.0) % MCV (80.0-94.0) fL MCH (27.0-31.0) pg MCHC (33.0-37.0) g/dL RDW (11.5-14.5) % Plt Count (130-400) K/uL MPV (7.2-11.7) fL Neut % (Auto) (50.0-75.0) % Lymph % (Auto) (20.0-40.0) % Nye % (Auto) (0.0-10.0) % Eos % (Auto) (0.0-4.0) % Baso % (Auto) (0.0-2.0) % Neut # (Auto) (1.8-7.0) K/uL Lymph # (Auto) (1.0-4.3) K/uL Nye # (Auto) (0.0-0.8) K/uL Eos # (Auto) (0.0-0.7) K/uL Baso # (Auto) (0.0-0.2) K/uL Neutrophils % (Manual) (50-75) % Band Neutrophils % (0-2) % Lymphocytes % (Manual) (20-40) % Monocytes % (Manual) (0-10) % Platelet Estimate (NORMAL) Giant Platelets Hypochromasia (manual) Poikilocytosis (manual Anisocytosis (manual) APTT (21-34) SECONDS Puncture Site pCO2 (35-45) mm/Hg pO2 (80-100) mm/Hg HCO3 (21-28) mmol/L ABG pH (7.35-7.45) ABG Total CO2 (22-28) mmol/L ABG O2 Saturation (95-98) % ABG Base Excess (-2.0-3.0) mmol/L ABG Hemoglobin (11.7-17.4) g/dL ABG Carboxyhemoglobin (0.5-1.5) % POC ABG HHb (Measured) (0.0-5.0) % ABG Methemoglobin (0.0-3.0) % Bran Test A-a O2 Difference mm/Hg Respiratory Index Hgb O2 Saturation (95.0-98.0) % Vent Mode Mechanical Rate FiO2 % Tidal Volume PEEP Sodium (132-148) mmol/L Potassium (3.6-5.2) mmol/L Chloride (98-107) mmol/L Carbon Dioxide (22-30) mmol/L Anion Gap (10-20) BUN (9-20) mg/dL Creatinine (0.8-1.5) mg/dL Est GFR ( Amer) Est GFR (Non-Af Amer) POC Glucose (mg/dL) (65-110) mg/dL Random Glucose (75-110) mg/dL Hemoglobin A1c 7.4 H (4.2-6.5) % Calcium (8.6-10.4) mg/dl Phosphorus (2.5-4.5) mg/dL Magnesium (1.6-2.3) mg/dL Total Bilirubin (0.2-1.3) mg/dL AST (17-59) U/L ALT (21-72) U/L Alkaline Phosphatase (38-126) U/L Total Protein (6.3-8.3) g/dL Albumin (3.5-5.0) g/dL Globulin (2.2-3.9) gm/dL Albumin/Globulin Ratio (1.0-2.1) Urine Color (YELLOW) Urine Clarity (Clear) Urine pH (5.0-8.0) Ur Specific [place] (1.003-1.030) Urine Protein (NEGATIVE) mg/dL Urine Glucose (UA) (Normal) mg/dL Urine Ketones (NEGATIVE) mg/dL Urine Blood (NEGATIVE) Urine Nitrate (NEGATIVE) Urine Bilirubin (NEGATIVE) Urine Urobilinogen (0.2-1.0) mg/dL Ur Leukocyte Esterase (Negative) Asher/uL Urine WBC (Auto) (0-5) /hpf Urine RBC (Auto) (0-3) /hpf Ur Squamous Epith Cells (0-5) /hpf Amorphous Sediment (<OCC) /ul Granular Casts (Auto) (0-1) /lpf Ur Random Sodium mmol/L Laboratory Results - last 24 hr 03/20/18 03/21/18 03/21/18 05:49 11:06 16:49 WBC RBC Hgb Hct MCV MCH MCHC RDW Plt Count MPV Neut % (Auto) Lymph % (Auto) Nye % (Auto) Eos % (Auto) Baso % (Auto) Neut # (Auto) Lymph # (Auto) Nye # (Auto) Eos # (Auto) Baso # (Auto) Neutrophils % (Manual) Band Neutrophils % Lymphocytes % (Manual) Monocytes % (Manual) Platelet Estimate Giant Platelets Hypochromasia (manual) Poikilocytosis (manual Anisocytosis (manual) APTT Puncture Site pCO2 pO2 HCO3 ABG pH ABG Total CO2 ABG O2 Saturation ABG Base Excess ABG Hemoglobin ABG Carboxyhemoglobin POC ABG HHb (Measured) ABG Methemoglobin Bran Test A-a O2 Difference Respiratory Index Hgb O2 Saturation Vent Mode Mechanical Rate FiO2 Tidal Volume PEEP Sodium Potassium Chloride Carbon Dioxide Anion Gap BUN Creatinine Est GFR ( Amer) Est GFR (Non-Af Amer) POC Glucose (mg/dL) 193 H Random Glucose Hemoglobin A1c 7.4 H Calcium Phosphorus Magnesium Total Bilirubin AST ALT Alkaline Phosphatase Total Protein Albumin Globulin Albumin/Globulin Ratio Urine Color Yellow Urine Clarity Hazy Urine pH 5.0 Ur Specific [place] 1.025 Urine Protein 2+ H Urine Glucose (UA) Normal Urine Ketones Negative Urine Blood 2+ H Urine Nitrate Negative Urine Bilirubin Negative Urine Urobilinogen Normal Ur Leukocyte Esterase Trace Urine WBC (Auto) 40 H Urine RBC (Auto) 60 H Ur Squamous Epith Cells 1 Amorphous Sediment Moderate H Granular Casts (Auto) 1-3 Ur Random Sodium 03/21/18 03/21/18 03/21/18 16:49 17:34 18:28 WBC RBC Hgb Hct MCV MCH MCHC RDW Plt Count MPV Neut % (Auto) Lymph % (Auto) Nye % (Auto) Eos % (Auto) Baso % (Auto) Neut # (Auto) Lymph # (Auto) Nye # (Auto) Eos # (Auto) Baso # (Auto) Neutrophils % (Manual) Band Neutrophils % Lymphocytes % (Manual) Monocytes % (Manual) Platelet Estimate Giant Platelets Hypochromasia (manual) Poikilocytosis (manual Anisocytosis (manual) APTT Puncture Site pCO2 pO2 HCO3 ABG pH ABG Total CO2 ABG O2 Saturation ABG Base Excess ABG Hemoglobin ABG Carboxyhemoglobin POC ABG HHb (Measured) ABG Methemoglobin Bran Test A-a O2 Difference Respiratory Index Hgb O2 Saturation Vent Mode Mechanical Rate FiO2 Tidal Volume PEEP Sodium 138 Potassium 4.3 Chloride 111 H Carbon Dioxide 19 L Anion Gap 13 BUN 43 H Creatinine 1.7 H Est GFR ( Amer) 49 Est GFR (Non-Af Amer) 41 POC Glucose (mg/dL) 221 H Random Glucose 217 H D Hemoglobin A1c Calcium 8.1 L Phosphorus Magnesium Total Bilirubin 0.8 AST 55 ALT 70 Alkaline Phosphatase 75 Total Protein 6.3 Albumin 3.3 L Globulin 3.1 Albumin/Globulin Ratio 1.1 Urine Color Urine Clarity Urine pH Ur Specific [place] Urine Protein Urine Glucose (UA) Urine Ketones Urine Blood Urine Nitrate Urine Bilirubin Urine Urobilinogen Ur Leukocyte Esterase Urine WBC (Auto) Urine RBC (Auto) Ur Squamous Epith Cells Amorphous Sediment Granular Casts (Auto) Ur Random Sodium 42 03/21/18 03/22/18 03/22/18 23:31 05:11 05:27 WBC RBC Hgb Hct MCV MCH MCHC RDW Plt Count MPV Neut % (Auto) Lymph % (Auto) Nye % (Auto) Eos % (Auto) Baso % (Auto) Neut # (Auto) Lymph # (Auto) Nye # (Auto) Eos # (Auto) Baso # (Auto) Neutrophils % (Manual) Band Neutrophils % Lymphocytes % (Manual) Monocytes % (Manual) Platelet Estimate Giant Platelets Hypochromasia (manual) Poikilocytosis (manual Anisocytosis (manual) APTT Puncture Site Rr pCO2 33 L pO2 136 H HCO3 22.5 ABG pH 7.41 ABG Total CO2 21.9 L ABG O2 Saturation 99.3 H ABG Base Excess -3.1 L ABG Hemoglobin 10.9 L ABG Carboxyhemoglobin 1.7 H POC ABG HHb (Measured) 0.7 ABG Methemoglobin 1.4 Bran Test Pos A-a O2 Difference 108.0 Respiratory Index 0.8 Hgb O2 Saturation 96.3 Vent Mode Prvc Mechanical Rate 24 FiO2 40.0 Tidal Volume 500 PEEP 5 Sodium Potassium Chloride Carbon Dioxide Anion Gap BUN Creatinine Est GFR ( Amer) Est GFR (Non-Af Amer) POC Glucose (mg/dL) 220 H 197 H Random Glucose Hemoglobin A1c Calcium Phosphorus Magnesium Total Bilirubin AST ALT Alkaline Phosphatase Total Protein Albumin Globulin Albumin/Globulin Ratio Urine Color Urine Clarity Urine pH Ur Specific [place] Urine Protein Urine Glucose (UA) Urine Ketones Urine Blood Urine Nitrate Urine Bilirubin Urine Urobilinogen Ur Leukocyte Esterase Urine WBC (Auto) Urine RBC (Auto) Ur Squamous Epith Cells Amorphous Sediment Granular Casts (Auto) Ur Random Sodium 03/22/18 03/22/18 03/22/18 05:52 05:52 05:52 WBC 19.2 H RBC 3.66 L Hgb 10.8 L Hct 32.7 L MCV 89.6 MCH 29.5 MCHC 32.9 L RDW 13.7 Plt Count 138 MPV 9.8 Neut % (Auto) 91.8 H Lymph % (Auto) 2.6 L Nye % (Auto) 5.6 Eos % (Auto) 0.0 Baso % (Auto) 0.0 Neut # (Auto) 17.6 H Lymph # (Auto) 0.5 L Nye # (Auto) 1.1 H Eos # (Auto) 0.0 Baso # (Auto) 0.0 Neutrophils % (Manual) 91 H Band Neutrophils % 3 H Lymphocytes % (Manual) 2 L Monocytes % (Manual) 4 Platelet Estimate Normal Giant Platelets Present Hypochromasia (manual) Slight Poikilocytosis (manual Slight Anisocytosis (manual) Slight APTT 47 H D Puncture Site pCO2 pO2 HCO3 ABG pH ABG Total CO2 ABG O2 Saturation ABG Base Excess ABG Hemoglobin ABG Carboxyhemoglobin POC ABG HHb (Measured) ABG Methemoglobin Bran Test A-a O2 Difference Respiratory Index Hgb O2 Saturation Vent Mode Mechanical Rate FiO2 Tidal Volume PEEP Sodium 140 Potassium 4.5 Chloride 114 H Carbon Dioxide 21 L Anion Gap 9 L BUN 47 H Creatinine 1.6 H Est GFR ( Amer) 53 Est GFR (Non-Af Amer) 43 POC Glucose (mg/dL) Random Glucose 209 H Hemoglobin A1c Calcium 8.3 L Phosphorus Magnesium Total Bilirubin 0.8 AST 45 ALT 65 Alkaline Phosphatase 76 Total Protein 6.1 L Albumin 3.2 L Globulin 3.0 Albumin/Globulin Ratio 1.1 Urine Color Urine Clarity Urine pH Ur Specific [place] Urine Protein Urine Glucose (UA) Urine Ketones Urine Blood Urine Nitrate Urine Bilirubin Urine Urobilinogen Ur Leukocyte Esterase Urine WBC (Auto) Urine RBC (Auto) Ur Squamous Epith Cells Amorphous Sediment Granular Casts (Auto) Ur Random Sodium 03/22/18 05:52 WBC RBC Hgb Hct MCV MCH MCHC RDW Plt Count MPV Neut % (Auto) Lymph % (Auto) Nye % (Auto) Eos % (Auto) Baso % (Auto) Neut # (Auto) Lymph # (Auto) Nye # (Auto) Eos # (Auto) Baso # (Auto) Neutrophils % (Manual) Band Neutrophils % Lymphocytes % (Manual) Monocytes % (Manual) Platelet Estimate Giant Platelets Hypochromasia (manual) Poikilocytosis (manual Anisocytosis (manual) APTT Puncture Site pCO2 pO2 HCO3 ABG pH ABG Total CO2 ABG O2 Saturation ABG Base Excess ABG Hemoglobin ABG Carboxyhemoglobin POC ABG HHb (Measured) ABG Methemoglobin Bran Test A-a O2 Difference Respiratory Index Hgb O2 Saturation Vent Mode Mechanical Rate FiO2 Tidal Volume PEEP Sodium Potassium Chloride Carbon Dioxide Anion Gap BUN Creatinine Est GFR ( Amer) Est GFR (Non-Af Amer) POC Glucose (mg/dL) Random Glucose Hemoglobin A1c Calcium Phosphorus 2.9 Magnesium 2.5 H Total Bilirubin AST ALT Alkaline Phosphatase Total Protein Albumin Globulin Albumin/Globulin Ratio Urine Color Urine Clarity Urine pH Ur Specific [place] Urine Protein Urine Glucose (UA) Urine Ketones Urine Blood Urine Nitrate Urine Bilirubin Urine Urobilinogen Ur Leukocyte Esterase Urine WBC (Auto) Urine RBC (Auto) Ur Squamous Epith Cells Amorphous Sediment Granular Casts (Auto) Ur Random Sodium Radiology Impressions: Radiology Impressions Chest X-Ray 03/21/18 07:13 IMPRESSION: Endotracheal tube. Nasogastric tube. Moderate interstitial edema or infection, mildly improved since prior study. Additional findings as above. Renal Ultrasound 03/21/18 14:41 IMPRESSION: Echogenic renal parenchyma may be seen in the setting of medical renal disease. Perinephric fluid bilaterally. 1.0 x 0.8 x 1.1 cm left mid to upper pole complex renal cyst. Melvin catheter within under distended urinary bladder. Chest X-Ray 03/22/18 05:23 IMPRESSION: Endotracheal tube extending into the midthoracic trachea. NG tube coiled in the stomach. Moderate to severe venous congestion with confluent consolidative changes at the left lung base. Bilateral hilar prominence. Enlarged ectatic aorta. Cardiomegaly. Rounded radiopaque densities in the left hilar region may represent calcified lymph nodes. Fingerstick Blood Sugar Results: 220 Review of Systems - Review of Systems Systems not reviewed;Unavailable: Intubated Critical Care Progress Note - Ventilator Checklist Head of Bed 30 Degrees: Yes Daily Sedation Vacation: Yes Daily Assessment of Readiness to Wean: Yes Daily Spontaneous Breathing Trial: Yes PUD Prophalyxis: Yes DVT Prophylaxis: Yes Oral Care with Chlorhexidine Gluconate {CHG}: Yes - Vent Settings MODE:: PRVC - Extremities/Vascular Does the Patient have a Melvin Catheter?: Yes Does the Patient need a Melvin Catheter?: Yes Catheter Insertion Criteria: Need for accurate measurement of output in critically ill patient - Prophylaxis GI Prophylaxis GI: PPI - Prophylaxis DVT Prophylaxis DVT: Heparin SQ Assessment/Plan - Assessment and Plan (Free Text) Assessment: 67 year old male with PMH of pulmonary fibrosis, DM, HTN, and BPH admitted to ICU s/p cardiac arrest (Vfib/Vtach/NSTEMI). P[place] cardiac cath [place] [facility] due to problems with inhouse fluoroscopy. Neuro Alert, fighting ventilator, Unable to assess if patient able to follow commands On propofol drip adjusted as needed CT head (1-5) shows 9x11 mm R MCA aneurysm; no subarachnoid hemorrhage Pulm Intubated and on vent maintain spo2>92% daily weaning trials s/p cardiac cath Methylprednisolone and Duoneb CTA negative for P.E CV plan for cardiac cath at [facility] s/p cardiac arrest on admission, elevated troponins Heparin drip; Aspirin, Lopressor, Amiodarone GI no active issues; G tube for feedings on glucerna Renal NS @ 50mls/hr for elevated creatinine; trending down Repeat labs in AM ID Zosyn renal dose cx all negative elevated white count; afebrile Disposition: Patient likely for [facility] cardiac cath today; daily weaning trials s/p cath for extubation; continue fluids for ABDULKADIR and zosyn for empiric treatment PGY-1 [facility] discussed with Dr. Mohan
--- NOTE | 2018-03-22 10:51 | CP.PCM.PN ---
Subjective - Date & Time of Evaluation Date of Evaluation: 03/22/18 Time of Evaluation: 10:48 - Subjective Subjective: Remains sedated, on vent On IV fluids- 50 ml qh UO- 950ml Renal function about same, lytes acceptable Objective - Vital Signs/Intake and Output Vital Signs (last 24 hours): Temp Pulse Resp BP Pulse Ox 99 F 92 H 27 H 151/92 H 100 03/22/18 08:00 03/22/18 08:03 03/22/18 08:03 03/22/18 09:43 03/22/18 08:03 Intake and Output: 03/22/18 03/22/18 06:59 18:59 Intake Total 1801.5 308.3 Output Total 525 50 Balance 1276.5 258.3 - Medications Medications: Current Medications Albuterol/Ipratropium (Duoneb 3 Mg/0.5 Mg (3 Ml) Ud) 3 ml INH RQ6 [facility] Last Admin: 03/22/18 07:40 Dose: 3 ml Amiodarone HCl (Cordarone) 200 mg PO BID [facility] Last Admin: 03/22/18 09:43 Dose: 200 mg Aspirin (Aspirin Chewable) 81 mg PO DAILY [facility] Last Admin: 03/22/18 09:43 Dose: 81 mg Heparin Sodium/Sodium Chloride (Heparin 91584 Units/250ml 1/2 Normal Saline) 25,000 units in 250 mls @ 9.036 mls/hr IV .Q24H PRN; Protocol PRN Reason: ADJUST RATE PER PROTOCOL Last Admin: 03/21/18 17:12 Dose: 12 units/kg/hr, 9.036 mls/hr Propofol (Diprivan) 1,000 mg in 100 mls @ 2.259 mls/hr IV .Q24H PRN; Protocol PRN Reason: TITRATE PER MD ORDER Last Titration: 03/22/18 08:15 Dose: 45 mcg/kg/min, 20.33 mls/hr Piperacillin Sod/Tazobactam Sod (Zosyn 2.25 Gm Iv Premix) 2.25 gm in 50 mls @ 100 mls/hr IVPB Q6H [facility]; Protocol Last Admin: 03/22/18 06:20 Dose: 100 mls/hr Sodium Chloride (Sodium Chloride 0.9%) 1,000 mls @ 50 mls/hr IV .Q20H [facility] Last Admin: 03/22/18 09:43 Dose: 50 mls/hr Insulin Aspart (Novolog) 0 unit SC Q6 [facility]; Protocol Last Admin: 03/22/18 06:19 Dose: 2 units Methylprednisolone (Solu-Medrol) 40 mg IVP Q12 [facility] Last Admin: 03/22/18 09:42 Dose: 40 mg Metoprolol Tartrate (Lopressor) 25 mg PO BID [facility] Last Admin: 03/22/18 09:43 Dose: 25 mg Pantoprazole Sodium (Protonix Inj) 40 mg IVP DAILY [facility] Last Admin: 03/22/18 09:44 Dose: 40 mg - Labs Labs: 03/22/18 05:52 03/22/18 05:52 PT 12.9 SECONDS (9.7-12.2) H 03/21/18 04:41 INR 1.2 03/21/18 04:41 APTT 47 SECONDS (21-34) H D 03/22/18 05:52 - Constitutional Appears: No Acute Distress, Chronically Ill - Neck Exam Neck Exam: absent: Tenderness - Respiratory Exam Respiratory Exam: Clear to Ausculation Bilateral, Respiratory Distress - Cardiovascular Exam Cardiovascular Exam: REGULAR RHYTHM, +S1 - GI/Abdominal Exam GI & Abdominal Exam: Soft. absent: Tenderness - Extremities Exam Extremities Exam: Normal Inspection. absent: Pedal Edema - Neurological Exam Neurological Exam: Altered - Skin Skin Exam: Dry, Warm Assessment and Plan (1) ABDULKADIR (acute kidney injury) Status: Acute (2) COPD (chronic obstructive pulmonary disease) Status: Acute (3) Cardiac arrest Status: Acute (4) Ventricular fibrillation Status: Acute (5) HTN (hypertension) Status: Chronic (6) Pulmonary fibrosis Status: Chronic - Assessment and Plan (Free Text) Plan: Agree with mild fluid hydration continue to monitor lytes, renal function
--- NOTE | 2018-03-22 12:21 | CARD ---
APPROVED REPORT Date of service: 03/19/2018 EKG Measurement Heart [id number] IL 200P7 [id number] <Conclusion> Normal sinus rhythm Left axis deviation Left bundle branch block Abnormal ECG
--- NOTE | 2018-03-22 12:23 | CARD ---
APPROVED REPORT Date of service: 03/19/2018 EKG Measurement Heart [id number] <Conclusion> Normal sinus with first degree av block Low voltage QRS ST & Marked T wave marked ST elevation, acute [place] LBBB Abnormal ECG
--- NOTE | 2018-03-22 13:05 | CARD ---
APPROVED REPORT Date of service: 03/19/2018 EKG Measurement Heart [id number] <Conclusion> Sinus bradycardia Left axis deviation Left bundle branch block Abnormal ECG
--- NOTE | 2018-03-22 13:40 | CARD ---
APPROVED REPORT Date of service: 03/19/2018 EKG Measurement Heart [id number] [id number] <Conclusion> Normal sinus rhythm Possible Left atrial enlargement Left axis deviation Left bundle branch block Inferior MD, age undetermined Abnormal ECG
--- NOTE | 2018-03-22 13:44 | CT ---
Date of service: 03/22/2018 PROCEDURE: CT HEAD WITHOUT CONTRAST. HISTORY: s/p Unresponsivess,follow up CT head COMPARISON: Comparison made with CT scan brain dated 03/19/2018. TECHNIQUE: Axial computed tomography images were obtained through the head/brain without intravenous contrast. Radiation dose: Total exam DLP = 1150.53 mGy-cm. This CT exam was performed using one or more of the following dose reduction techniques: Automated exposure control, adjustment of the mA and/or kV according to patient size, and/or use of iterative reconstruction technique. FINDINGS: Study is limited by motion artifact HEMORRHAGE: No acute parenchymal, subarachnoid or extra-axial hemorrhage. BRAIN: Suspect minimal chronic periventricular white matter ischemic changes. Questionable dilated perivascular space versus tiny infarct left inferior basal ganglia. Previously noted right MCA trifurcation aneurysm is poorly delineated on this exam. Mild generalized volume loss VENTRICLES: No obstructive hydrocephalus. CALVARIUM: No acute calvarial fractures. PARANASAL SINUSES: Redemonstrated is a a focus of mucous retention cyst formation right maxillary antrum. MASTOID AIR CELLS: Unremarkable as visualized. No inflammatory changes. OTHER FINDINGS: Note made of in situ endotracheal tube IMPRESSION: Limited motion degraded study. Suspect minor chronic periventricular white matter ischemic changes. Questionable dilated perivascular space versus tiny infarct left inferior basal ganglia Mild generalized volume loss Previously noted right MCA trifurcation aneurysm is poorly delineated on this exam.
--- NOTE | 2018-03-22 15:13 | CP.PCM.PN ---
Subjective - Date & Time of Evaluation Date of Evaluation: 03/22/18 Time of Evaluation: 15:00 - Subjective Subjective: dictated Objective - Vital Signs/Intake and Output Vital Signs (last 24 hours): Temp Pulse Resp BP Pulse Ox 98.6 F 71 17 120/87 100 03/22/18 12:00 03/22/18 13:23 03/22/18 13:23 03/22/18 13:23 03/22/18 13:23 Intake and Output: 03/22/18 03/22/18 06:59 18:59 Intake Total 1801.5 1374.1 Output Total 525 50 Balance 1276.5 1324.1 - Medications Medications: Current Medications Albuterol/Ipratropium (Duoneb 3 Mg/0.5 Mg (3 Ml) Ud) 3 ml INH RQ6 [facility] Last Admin: 03/22/18 07:40 Dose: 3 ml Amiodarone HCl (Cordarone) 200 mg PO BID [facility] Last Admin: 03/22/18 09:43 Dose: 200 mg Aspirin (Aspirin Chewable) 81 mg PO DAILY [facility] Last Admin: 03/22/18 09:43 Dose: 81 mg Heparin Sodium/Sodium Chloride (Heparin 60294 Units/250ml 1/2 Normal Saline) 25,000 units in 250 mls @ 9.036 mls/hr IV .Q24H PRN; Protocol PRN Reason: ADJUST RATE PER PROTOCOL Last Admin: 03/21/18 17:12 Dose: 12 units/kg/hr, 9.036 mls/hr Propofol (Diprivan) 1,000 mg in 100 mls @ 2.259 mls/hr IV .Q24H PRN; Protocol PRN Reason: TITRATE PER MD ORDER Last Admin: 03/22/18 11:47 Dose: 40 mcg/kg/min, 18.071 mls/hr Piperacillin Sod/Tazobactam Sod (Zosyn 2.25 Gm Iv Premix) 2.25 gm in 50 mls @ 1 00 mls/hr IVPB Q6H [facility]; Protocol Last Admin: 03/22/18 11:59 Dose: 100 mls/hr Sodium Chloride (Sodium Chloride 0.9%) 1,000 mls @ 50 mls/hr IV .Q20H [facility] Last Admin: 03/22/18 09:43 Dose: 50 mls/hr Insulin Aspart (Novolog) 0 unit SC Q6 [facility]; Protocol Last Admin: 03/22/18 11:48 Dose: 2 units Methylprednisolone (Solu-Medrol) 40 mg IVP Q12 [facility] Last Admin: 03/22/18 09:42 Dose: 40 mg Metoprolol Tartrate (Lopressor) 25 mg PO BID [facility] Last Admin: 03/22/18 09:43 Dose: 25 mg Pantoprazole Sodium (Protonix Inj) 40 mg IVP DAILY [facility] Last Admin: 03/22/18 09:44 Dose: 40 mg - Labs Labs: 03/22/18 05:52 03/22/18 05:52 PT 12.9 SECONDS (9.7-12.2) H 03/21/18 04:41 INR 1.2 03/21/18 04:41 APTT 47 SECONDS (21-34) H D 03/22/18 05:52
--- NOTE | 2018-03-22 15:25 | CP.PCM.PN ---
<Lauryn Case - Last Filed: 03/22/18 15:23> Subjective - Date & Time of Evaluation Date of Evaluation: 03/22/18 Time of Evaluation: 08:00 - Subjective Subjective: Neurology Progress Note: Patient was seen and examined at bedside in the AM. Patient is currently intubated but alert and awake. Limited ROS due to intubation. Objective - Vital Signs/Intake and Output Vital Signs (last 24 hours): Temp Pulse Resp BP Pulse Ox 98.6 F 71 17 120/87 100 03/22/18 12:00 03/22/18 13:23 03/22/18 13:23 03/22/18 13:23 03/22/18 13:23 Intake and Output: 03/22/18 03/22/18 06:59 18:59 Intake Total 1801.5 1374.1 Output Total 525 50 Balance 1276.5 1324.1 - Medications Medications: Current Medications Albuterol/Ipratropium (Duoneb 3 Mg/0.5 Mg (3 Ml) Ud) 3 ml INH RQ6 [facility] Last Admin: 03/22/18 07:40 Dose: 3 ml Amiodarone HCl (Cordarone) 200 mg PO BID [facility] Last Admin: 03/22/18 09:43 Dose: 200 mg Aspirin (Aspirin Chewable) 81 mg PO DAILY [facility] Last Admin: 03/22/18 09:43 Dose: 81 mg Heparin Sodium/Sodium Chloride (Heparin 71006 Units/250ml 1/2 Normal Saline) 25,000 units in 250 mls @ 9.036 mls/hr IV .Q24H PRN; Protocol PRN Reason: ADJUST RATE PER PROTOCOL Last Admin: 03/21/18 17:12 Dose: 12 units/kg/hr, 9.036 mls/hr Propofol (Diprivan) 1,000 mg in 100 mls @ 2.259 mls/hr IV .Q24H PRN; Protocol PRN Reason: TITRATE PER MD ORDER Last Admin: 03/22/18 11:47 Dose: 40 mcg/kg/min, 18.071 mls/hr Piperacillin Sod/Tazobactam Sod (Zosyn 2.25 Gm Iv Premix) 2.25 gm in 50 mls @ 100 mls/hr IVPB Q6H [facility]; Protocol Last Admin: 03/22/18 11:59 Dose: 100 mls/hr Sodium Chloride (Sodium Chloride 0.9%) 1,000 mls @ 50 mls/hr IV .Q20H [facility] Last Admin: 03/22/18 09:43 Dose: 50 mls/hr Insulin Aspart (Novolog) 0 unit SC Q6 [facility]; Protocol Last Admin: 03/22/18 11:48 Dose: 2 units Methylprednisolone (Solu-Medrol) 40 mg IVP Q12 [facility] Last Admin: 03/22/18 09:42 Dose: 40 mg Metoprolol Tartrate (Lopressor) 25 mg PO BID [facility] Last Admin: 03/22/18 09:43 Dose: 25 mg Pantoprazole Sodium (Protonix Inj) 40 mg IVP DAILY [facility] Last Admin: 03/22/18 09:44 Dose: 40 mg - Labs Labs: 03/22/18 05:52 03/22/18 05:52 PT 12.9 SECONDS (9.7-12.2) H 03/21/18 04:41 INR 1.2 03/21/18 04:41 APTT 47 SECONDS (21-34) H D 03/22/18 05:52 - Constitutional Appears: Chronically Ill - Eye Exam Eye Exam: EOMI - ENT Exam Additional comments: ETT - in place - Respiratory Exam Respiratory Exam: NORMAL BREATHING PATTERN - Cardiovascular Exam Cardiovascular Exam: REGULAR RHYTHM, +S1, +S2 - GI/Abdominal Exam GI & Abdominal Exam: Soft, Normal Bowel Sounds. absent: Tenderness - Neurological Exam Neurological Exam: Awake Assessment and Plan - Assessment and Plan (Free Text) Assessment: 67 year old male with past medical history of pulmonary fibrosis, DM, HTN, and BPH admitted 03/19/18 for chest pain. Patient was admitted to ICU s/p cardiac arrest (Vfib/Vtach/NSTEMI). Plan: Head CT (03/19/18): 9x11mm Right middle cerebral artery aneurysm Head CT (03/22/18): Mild generalized volume loss. Previously noted right MCA aneurysm. Patient is alert, fighting ventilator, able to follow commands From a neurological standpoint patient is able to be extubated. Case discussed with Dr. Pierre Case PGY-2 <Quentin Jay - Last Filed: 03/28/18 14:27> Objective - Vital Signs/Intake and Output Vital Signs (last 24 hours): Temp Pulse Resp BP Pulse Ox 98.3 F 78 18 152/100 H 94 L 03/28/18 09:12 03/28/18 09:12 03/28/18 09:12 03/28/18 11:00 03/28/18 09:12 Intake and Output: 03/28/18 03/28/18 06:59 18:59 Intake Total 0 Balance 0 - Medications Medications: Current Medications Albuterol/Ipratropium (Duoneb 3 Mg/0.5 Mg (3 Ml) Ud) 3 ml INH RQ6 [facility] Last Admin: 03/28/18 13:40 Dose: 3 ml Aspirin (Aspirin Supp) 300 mg NC DAILY [facility] Last Admin: 03/25/18 11:00 Dose: 300 mg Heparin Sodium (Porcine) (Heparin) 5,000 units SC Q8 [facility] Last Admin: 03/28/18 13:53 Dose: 5,000 units Dextrose/Sodium Chloride (Dextrose 5%/0.45% Ns 1000 Ml) 1,000 mls @ 50 mls/hr IV .Q20H [facility] Last Admin: 03/28/18 07:25 Dose: Not Given Cefepime HCl (Maxipime Iv 2 Gm Premix) 2 gm in 100 mls @ 100 mls/hr IVPB Q12H [facility]; Protocol Stop: 03/31/18 18:01 Last Admin: 03/28/18 05:49 Dose: 100 mls/hr Vancomycin HCl 1 gm/ Sodium (Chloride) 250 mls @ 166.7 mls/hr IVPB Q24H [facility]; Protocol Last Admin: 03/27/18 21:50 Dose: 166.7 mls/hr Insulin Aspart (Novolog) 0 unit SC Q6 [facility]; Protocol Last Admin: 03/28/18 12:36 Dose: 4 units Lorazepam (Ativan) 1 mg IVP Q4H PRN PRN Reason: Restlessness Last Admin: 03/28/18 13:50 Dose: 1 mg Methylprednisolone (Solu-Medrol) 40 mg IVP Q12 [facility] Last Admin: 03/28/18 11:00 Dose: 40 mg Metoprolol Tartrate (Lopressor) 5 mg IVP Q6 PRN PRN Reason: elevated blood pressure Last Admin: 03/26/18 18:27 Dose: 5 mg Metoprolol Tartrate (Lopressor) 25 mg PEG BID [facility] Last Admin: 03/28/18 11:00 Dose: 25 mg Oseltamivir Phosphate (Tamiflu Cap) 75 mg PO BID [facility]; Protocol Last Admin: 03/28/18 11:00 Dose: 75 mg Pantoprazole Sodium (Protonix Inj) 40 mg IVP DAILY [facility] Last Admin: 03/28/18 11:00 Dose: 40 mg Rosuvastatin Calcium (Crestor) 10 mg PO HS [facility] Last Admin: 03/27/18 21:48 Dose: 10 mg Vitamin A (Vitamin A & D Oint Ud Foilpak) 1 ea TOP Q6 PRN PRN Reason: Dry mouth Last Admin: 03/28/18 12:37 Dose: 1 ea - Labs Labs: 03/28/18 07:50 03/28/18 07:50 PT 12.9 SECONDS (9.7-12.2) H 03/21/18 04:41 INR 1.2 03/21/18 04:41 APTT 51 SECONDS (21-34) H 03/24/18 06:35 Attending/Attestation - Attestation I have personally seen and examined this patient.: Yes I have fully participated in the care of the patient.: Yes I have reviewed all pertinent clinical information, including history, physical exam and plan: Yes Notes (Text): I agree with the assessment and plan as above.
[2018-03-22] MEDS ORDERED: Morphine 4 MG/ML VIAL IVP PRN (15:48)
--- NOTE | 2018-03-22 18:19 | CP.PCM.PN ---
Subjective - Date & Time of Evaluation Date of Evaluation: 03/22/18 Time of Evaluation: 16:15 - Subjective Subjective: dictated Objective - Vital Signs/Intake and Output Vital Signs (last 24 hours): Temp Pulse Resp BP Pulse Ox 98.8 F 56 L 20 147/90 100 03/22/18 16:00 03/22/18 15:52 03/22/18 15:52 03/22/18 17:55 03/22/18 16:00 Intake and Output: 03/22/18 03/22/18 06:59 18:59 Intake Total 1801.5 1792.7 Output Total 525 50 Balance 1276.5 1742.7 - Medications Medications: Current Medications Albuterol/Ipratropium (Duoneb 3 Mg/0.5 Mg (3 Ml) Ud) 3 ml INH RQ6 [facility] Last Admin: 03/22/18 07:40 Dose: 3 ml Amiodarone HCl (Cordarone) 200 mg PO BID [facility] Last Admin: 03/22/18 17:55 Dose: 200 mg Aspirin (Aspirin Chewable) 81 mg PO DAILY [facility] Last Admin: 03/22/18 09:43 Dose: 81 mg Heparin Sodium/Sodium Chloride (Heparin 28850 Units/250ml 1/2 Normal Saline) 25,000 units in 250 mls @ 9.036 mls/hr IV .Q24H PRN; Protocol PRN Reason: ADJUST RATE PER PROTOCOL Last Admin: 03/21/18 17:12 Dose: 12 units/kg/hr, 9.036 mls/hr Propofol (Diprivan) 1,000 mg in 100 mls @ 2.259 mls/hr IV .Q24H PRN; Protocol PRN Reason: TITRATE PER MD ORDER Last Titration: 03/22/18 16:27 Dose: 30 mcg/kg/min, 13.553 mls/hr Piperacillin Sod/Tazobactam Sod (Zosyn 2.25 Gm Iv Premix) 2.25 gm in 50 mls @ 100 mls/hr IVPB Q6H [facility]; Protocol Last Admin: 03/22/18 17:59 Dose: 100 mls/hr Sodium Chloride (Sodium Chloride 0.9%) 1,000 mls @ 50 mls/hr IV .Q20H [facility] Last Admin: 03/22/18 09:43 Dose: 50 mls/hr Insulin Aspart (Novolog) 0 unit SC Q6 [facility]; Protocol Last Admin: 03/22/18 17:54 Dose: 3 units Methylprednisolone (Solu-Medrol) 40 mg IVP Q12 [facility] Last Admin: 03/22/18 09:42 Dose: 40 mg Metoprolol Tartrate (Lopressor) 25 mg PO BID [facility] Last Admin: 03/22/18 17:55 Dose: 25 mg Morphine Sulfate (Morphine) 2 mg IVP Q4 PRN PRN Reason: Sedation Pantoprazole Sodium (Protonix Inj) 40 mg IVP DAILY [facility] Last Admin: 03/22/18 09:44 Dose: 40 mg - Labs Labs: 03/22/18 05:52 03/22/18 05:52 PT 12.9 SECONDS (9.7-12.2) H 03/21/18 04:41 INR 1.2 03/21/18 04:41 APTT 47 SECONDS (21-34) H D 03/22/18 05:52
[2018-03-22] MEDS: Heparin25000 units/250ml 1/2NS 25,000 UNITS/250 ML BAG IV PRN (23:06)
--- NOTE | 2018-03-23 | PN ---
DATE: 03/22/2018 SUBJECTIVE: The patient was seen today. He was having some spasmodic cough while he has been on the ventilator. There is some suspicion of flail chest, Pulmonary is following. The patient remains intubated. Family was there. The son had many questions and Mira the nurse and I tried to explain to him. Neuro marsh, he is stable, they said. T-max is 99.2, pulse 73, blood pressure last recorded is 137/86, respirations are 24. He is on steroids; hence, his white count was elevated and remains on Zosyn and amiodarone. PHYSICAL EXAMINATION HEENT: Head is atraumatic. NECK: Supple. LUNGS: Had coarse breath sounds. HEART: S1, S2 are irregularly regular. ABDOMEN: Soft, nontender. No guarding, no rigidity present. EXTREMITIES: Have no edema, clubbing, or cyanosis. LABORATORY DATA: His sputum did not grow anything. Blood cultures, urine culture all came out negative. He had V-fib and he had a cardiac arrest, so he is going to be evaluated for cardiac etiology. He does have definitive pulmonary fibrosis mentioned on the CAT scan, chest CT; hence, we will continue with Zosyn and I think the white count is related to the steroids. He is on 40 every 12 hours of prednisone, so that can increase the white count. Otherwise, he is stable from ID point. Rizwana Reddy MD
[2018-03-23] MEDS: Piperacill/Tazo 2.25gm in Dex 2.25 GM/50 ML BAG IVPB SCH ×4 (01:10→18:53)
[2018-03-23] MEDS: Albuterol-Ipratrop 3 mg / 0.5 (3 ml) UD INH SCH ×3 (02:08→19:47)
[2018-03-23] MEDS: Sodium Chloride 0.9% 1,000 ML IV SCH ×3 (04:02→18:33)
[2018-03-23] MEDS: Propofol 10 mg/ml 1,000 MG/100 ML VIAL IV PRN (04:04)
[2018-03-23 05:09] LABS: ABG ALLEN TEST POS; ARTERIAL BLOOD GAS HCO3 24.5 mmol/L (21-28); ARTERIAL BLOOD GAS O2 SAT 99.7 % (95-98); ARTERIAL BLOOD GAS PCO2 35 mm/Hg (35-45); ARTERIAL BLOOD GAS PH 7.43 (7.35-7.45); ARTERIAL BLOOD GAS PO2 176 mm/Hg (80-100); ARTERIAL BLOOD GAS TCO2 24.3 mmol/L (22-28)
[2018-03-23] MEDS: (Novolog) Insulin Aspart, Recombinant 100 u/ml 10 ml vial SC SCH ×4 (06:07→18:34)
[2018-03-23 06:43] LABS: ALB/GLOB RATIO 1.1 (1.0-2.1); ALBUMIN 3.1 g/dL (3.5-5.0); ALT/SGPT 50 U/L (21-72); AST/SGOT 35 U/L (17-59); BLOOD UREA NITROGEN 47 mg/dL (9-20); CALCIUM 8.2 mg/dl (8.6-10.4); GFR NON-AFRICAN AMERICAN 51
[2018-03-23 06:49] LABS: BASO % 0.2 % (0.0-2.0); HEMOGLOBIN 10.2 g/dL (12.0-18.0); LYMPH # 0.5 K/uL (1.0-4.3); LYMPH % 3.4 % (20.0-40.0); MEAN CELL VOLUME 89.9 fL (80.0-94.0); MEAN CORPUSCULAR HGB CONC 32.2 g/dL (33.0-37.0); MEAN PLATELET VOLUME 10.1 fL (7.2-11.7); MONO # 0.6 K/uL (0.0-0.8); NEUT # 13.9 K/uL (1.8-7.0); NEUT % 92.4 % (50.0-75.0); PLATELET COUNT 124 K/uL (130-400); RBC 3.53 Mil/uL (4.40-5.90); RED CELL DISTRIBUTION WIDTH 14.4 % (11.5-14.5)
[2018-03-23 08:37] LABS: ANISOCYTOSIS SLIGHT; BANDS 5 % (0-2); HYPOCHROMIC SLIGHT; LYMPHOCYTE 2 % (20-40); MONOCYTE 3 % (0-10); NEUTROPHIL 90 % (50-75); PLATELET ESTIMATE SLIGHTLY DECREASED (NORMAL); TOTAL CELLS COUNTED 100
[2018-03-23 08:38] LABS: POLYCHROMIC SLIGHT
--- NOTE | 2018-03-23 08:49 | CP.CCUPN ---
<Kae Wall - Last Filed: 03/23/18 10:16> CCU Subjective - Physician Review Subjective (Free Text): Critical Care Progress Note for Dr. Salazar's service Patient seen and examined at beside. Patient was asleep during interview off sedation. Will monitor closely for mental status. Pending cardiac cath with cardiac team. Limited ROS due to patient clinical condition. CCU Objective - Vital Signs / Intake & Output Vital Signs (Last 4 hours): Vital Signs Pulse Resp BP Pulse Ox 03/23/18 06:00 61 23 100 03/23/18 05:53 67 26 H 158/88 H 100 03/23/18 05:00 64 26 H 100 03/23/18 04:52 67 24 163/86 H 100 Intake and Output (Last 8hrs): Intake & Output 03/22/18 03/23/18 03/23/18 22:59 06:59 14:59 Intake Total 1423.1 1024 Output Total 475 400 Balance 948.1 624 Weight 163 lb 3.2 oz Intake: IV 370 80 Intake, IV Amount 803.1 944 Left Hand 63 72 Right Antecubital 650 800 Right Hand 90.1 72 Tube Feeding 250 Output: Urine 475 400 Urethral (Melvni) 475 400 Other: # Bowel Movements 1 - Physical Exam Head: Positive for: Atraumatic, Normocephalic Pupils: Positive for: PERRL Extroacular Muscles: Positive for: EOMI Mouth: Positive for: Dry, Other (ETT tube in place) Respiratory/Chest: Positive for: Decreased Breath Sounds. Negative for: Respiratory Distress, Accessory Muscle Use Cardiovascular: Positive for: Normal S1, S2, Irregular Rhythm, Bradycardic Abdomen: Positive for: Normal Bowel Sounds. Negative for: Tenderness, Distention Upper Extremity: Positive for: Normal Inspection. Negative for: Cyanosis, Edema Lower Extremity: Positive for: Normal Inspection. Negative for: Edema Neurological: Negative for: GCS=15 Skin: Positive for: Dry, Normal Color Psychiatric: Negative for: Alert, Oriented x 3 - Medications Active Medications: Active Medications Generic Name Dose Route Start Last Admin Trade Name Freq PRN Reason Stop Dose Admin Albuterol/Ipratropium 3 ml 03/20/18 14:00 03/23/18 02:08 Duoneb 3 Mg/0.5 Mg (3 Ml) Ud INH 3 ml RQ6 DOUG Administration Amiodarone HCl 200 mg 03/20/18 19:15 03/22/18 17:55 Cordarone PO 200 mg BID DOUG Administration Aspirin 81 mg 03/20/18 10:00 03/22/18 09:43 Aspirin Chewable PO 81 mg DAILY DOUG Administration Heparin Sodium/Sodium Chloride 25,000 units in 250 mls @ 9.036 mls/hr 03/20/18 15:00 03/22/18 23:06 Heparin 70487 Units/250ml 1/2 Normal Saline IV 12 units/kg/hr .Q24H PRN 9.036 mls/hr ADJUST RATE PER PROTOCOL Administration Protocol 12 UNITS/KG/HR Propofol 1,000 mg in 100 mls @ 2.259 mls/hr 03/20/18 21:02 03/23/18 04:04 Diprivan IV 20 mcg/kg/min .Q24H PRN 9.036 mls/hr TITRATE PER MD ORDER Administration Protocol 5 MCG/KG/MIN Piperacillin Sod/Tazobactam Sod 2.25 gm in 50 mls @ 100 mls/hr 03/21/18 19:00 03/23/18 06:07 Zosyn 2.25 Gm Iv Premix IVPB 100 mls/hr Q6H DOUG Administration Protocol Sodium Chloride 1,000 mls @ 50 mls/hr 03/22/18 09:11 03/23/18 05:16 Sodium Chloride 0.9% IV Not Given .Q20H DOUG Insulin Aspart 0 unit 03/19/18 20:00 03/23/18 06:07 Novolog SC 3 units Q6 DOUG Administration Protocol Methylprednisolone 40 mg 03/22/18 10:00 03/22/18 23:02 Solu-Medrol IVP 40 mg Q12 DOUG Administration Metoprolol Tartrate 25 mg 03/20/18 10:00 03/22/18 17:55 Lopressor PO 25 mg BID DOUG Administration Morphine Sulfate 2 mg 03/22/18 15:48 Morphine IVP Q4 PRN Sedation Pantoprazole Sodium 40 mg 03/20/18 10:00 03/22/18 09:44 Protonix Inj IVP 40 mg DAILY DOUG Administration - Patient Studies Lab Studies: Microbiology Studies 03/19/18 20:30 Blood Culture - Preliminary Blood NO GROWTH AFTER 3 DAYS 03/19/18 21:10 Blood Culture - Preliminary Blood NO GROWTH AFTER 3 DAYS 03/19/18 07:27 Gram Stain - Final Trachasp Sputum Culture - Final NORMAL ORAL VALDO Lab Studies 03/23/18 03/23/18 03/23/18 Range/Units 06:10 06:10 06:10 WBC (4.8-10.8) K/uL RBC (4.40-5.90) Mil/uL Hgb (12.0-18.0) g/dL Hct (35.0-51.0) % MCV (80.0-94.0) fL MCH (27.0-31.0) pg MCHC (33.0-37.0) g/dL RDW (11.5-14.5) % Plt Count (130-400) K/uL MPV (7.2-11.7) fL Neut % (Auto) (50.0-75.0) % Lymph % (Auto) (20.0-40.0) % Hendricks % (Auto) (0.0-10.0) % Eos % (Auto) (0.0-4.0) % Baso % (Auto) (0.0-2.0) % Neut # (Auto) (1.8-7.0) K/uL Lymph # (Auto) (1.0-4.3) K/uL Hendricks # (Auto) (0.0-0.8) K/uL Eos # (Auto) (0.0-0.7) K/uL Baso # (Auto) (0.0-0.2) K/uL Neutrophils % (Manual) (50-75) % Band Neutrophils % (0-2) % Lymphocytes % (Manual) (20-40) % Monocytes % (Manual) (0-10) % Platelet Estimate (NORMAL) Giant Platelets Polychromasia Hypochromasia (manual) Poikilocytosis (manual Anisocytosis (manual) APTT 50 H (21-34) SECONDS Puncture Site pCO2 (35-45) mm/Hg pO2 (80-100) mm/Hg HCO3 (21-28) mmol/L ABG pH (7.35-7.45) ABG Total CO2 (22-28) mmol/L ABG O2 Saturation (95-98) % ABG Base Excess (-2.0-3.0) mmol/L Bran Test ABG Potassium (3.6-5.2) mmol/L A-a O2 Difference mm/Hg Respiratory Index Sodium 143 (132-148) mmol/l Chloride 115 H (98-107) mmol/L Glucose (75-110) mg/dl Lactate (0.7-2.1) mmol/L Vent Mode Mechanical Rate FiO2 % Tidal Volume PEEP Potassium 4.6 (3.6-5.2) mmol/L Carbon Dioxide 23 (22-30) mmol/L Anion Gap 10 (10-20) BUN 47 H (9-20) mg/dL Creatinine 1.4 (0.8-1.5) mg/dL Est GFR ( Amer) > 60 Est GFR (Non-Af Amer) 51 POC Glucose (mg/dL) (65-110) mg/dL Random Glucose 220 H (75-110) mg/dL Calcium 8.2 L (8.6-10.4) mg/dl Phosphorus 2.8 (2.5-4.5) mg/dL Magnesium 2.6 H (1.6-2.3) mg/dL Total Bilirubin 0.6 (0.2-1.3) mg/dL AST 35 (17-59) U/L ALT 50 (21-72) U/L Alkaline Phosphatase 93 (38-126) U/L Total Protein 6.0 L (6.3-8.3) g/dL Albumin 3.1 L (3.5-5.0) g/dL Globulin 2.9 (2.2-3.9) gm/dL Albumin/Globulin Ratio 1.1 (1.0-2.1) Arterial Blood Potassium (3.6-5.2) mmol/L JENNIFER Nuclear Membr Pat (Negative) 03/23/18 03/23/18 03/23/18 Range/Units 06:10 04:58 00:10 WBC 15.0 H (4.8-10.8) K/uL RBC 3.53 L (4.40-5.90) Mil/uL Hgb 10.2 L (12.0-18.0) g/dL Hct 31.7 L (35.0-51.0) % MCV 89.9 (80.0-94.0) fL MCH 29.0 (27.0-31.0) pg MCHC 32.2 L (33.0-37.0) g/dL RDW 14.4 (11.5-14.5) % Plt Count 124 L (130-400) K/uL MPV 10.1 (7.2-11.7) fL Neut % (Auto) 92.4 H (50.0-75.0) % Lymph % (Auto) 3.4 L (20.0-40.0) % Hendricks % (Auto) 4.0 (0.0-10.0) % Eos % (Auto) 0.0 (0.0-4.0) % Baso % (Auto) 0.2 (0.0-2.0) % Neut # (Auto) 13.9 H (1.8-7.0) K/uL Lymph # (Auto) 0.5 L (1.0-4.3) K/uL Hendricks # (Auto) 0.6 (0.0-0.8) K/uL Eos # (Auto) 0.0 (0.0-0.7) K/uL Baso # (Auto) 0.0 (0.0-0.2) K/uL Neutrophils % (Manual) 90 H (50-75) % Band Neutrophils % 5 H (0-2) % Lymphocytes % (Manual) 2 L (20-40) % Monocytes % (Manual) 3 (0-10) % Platelet Estimate Slightly decreased L (NORMAL) Giant Platelets Polychromasia Slight Hypochromasia (manual) Slight Poikilocytosis (manual Anisocytosis (manual) Slight APTT (21-34) SECONDS Puncture Site Rr pCO2 35 (35-45) mm/Hg pO2 176 H (80-100) mm/Hg HCO3 24.5 (21-28) mmol/L ABG pH 7.43 (7.35-7.45) ABG Total CO2 24.3 (22-28) mmol/L ABG O2 Saturation 99.7 H (95-98) % ABG Base Excess -0.6 (-2.0-3.0) mmol/L Bran Test Pos ABG Potassium 4.4 (3.6-5.2) mmol/L A-a O2 Difference 65.0 mm/Hg Respiratory Index 0.4 Sodium 146.0 (132-148) mmol/l Chloride 121.0 H (98-107) mmol/L Glucose 222 H (75-110) mg/dl Lactate 1.1 (0.7-2.1) mmol/L Vent Mode Prvc Mechanical Rate 20 FiO2 40.0 % Tidal Volume 500 PEEP 7 Potassium (3.6-5.2) mmol/L Carbon Dioxide (22-30) mmol/L Anion Gap (10-20) BUN (9-20) mg/dL Creatinine (0.8-1.5) mg/dL Est GFR ( Amer) Est GFR (Non-Af Amer) POC Glucose (mg/dL) 183 H (65-110) mg/dL Random Glucose (75-110) mg/dL Calcium (8.6-10.4) mg/dl Phosphorus (2.5-4.5) mg/dL Magnesium (1.6-2.3) mg/dL Total Bilirubin (0.2-1.3) mg/dL AST (17-59) U/L ALT (21-72) U/L Alkaline Phosphatase (38-126) U/L Total Protein (6.3-8.3) g/dL Albumin (3.5-5.0) g/dL Globulin (2.2-3.9) gm/dL Albumin/Globulin Ratio (1.0-2.1) Arterial Blood Potassium 4.4 (3.6-5.2) mmol/L JENNIFER Nuclear Membr Pat (Negative) 03/22/18 03/22/18 03/22/18 Range/Units 17:36 11:20 05:52 WBC (4.8-10.8) K/uL RBC (4.40-5.90) Mil/uL Hgb (12.0-18.0) g/dL Hct (35.0-51.0) % MCV (80.0-94.0) fL MCH (27.0-31.0) pg MCHC (33.0-37.0) g/dL RDW (11.5-14.5) % Plt Count (130-400) K/uL MPV (7.2-11.7) fL Neut % (Auto) (50.0-75.0) % Lymph % (Auto) (20.0-40.0) % Hendricks % (Auto) (0.0-10.0) % Eos % (Auto) (0.0-4.0) % Baso % (Auto) (0.0-2.0) % Neut # (Auto) (1.8-7.0) K/uL Lymph # (Auto) (1.0-4.3) K/uL Hendricks # (Auto) (0.0-0.8) K/uL Eos # (Auto) (0.0-0.7) K/uL Baso # (Auto) (0.0-0.2) K/uL Neutrophils % (Manual) 91 H (50-75) % Band Neutrophils % 3 H (0-2) % Lymphocytes % (Manual) 2 L (20-40) % Monocytes % (Manual) 4 (0-10) % Platelet Estimate Normal (NORMAL) Giant Platelets Present Polychromasia Hypochromasia (manual) Slight Poikilocytosis (manual Slight Anisocytosis (manual) Slight APTT (21-34) SECONDS Puncture Site pCO2 (35-45) mm/Hg pO2 (80-100) mm/Hg HCO3 (21-28) mmol/L ABG pH (7.35-7.45) ABG Total CO2 (22-28) mmol/L ABG O2 Saturation (95-98) % ABG Base Excess (-2.0-3.0) mmol/L Bran Test ABG Potassium (3.6-5.2) mmol/L A-a O2 Difference mm/Hg Respiratory Index Sodium (132-148) mmol/l Chloride (98-107) mmol/L Glucose (75-110) mg/dl Lactate (0.7-2.1) mmol/L Vent Mode Mechanical Rate FiO2 % Tidal Volume PEEP Potassium (3.6-5.2) mmol/L Carbon Dioxide (22-30) mmol/L Anion Gap (10-20) BUN (9-20) mg/dL Creatinine (0.8-1.5) mg/dL Est GFR ( Amer) Est GFR (Non-Af Amer) POC Glucose (mg/dL) 203 H 181 H (65-110) mg/dL Random Glucose (75-110) mg/dL Calcium (8.6-10.4) mg/dl Phosphorus (2.5-4.5) mg/dL Magnesium (1.6-2.3) mg/dL Total Bilirubin (0.2-1.3) mg/dL AST (17-59) U/L ALT (21-72) U/L Alkaline Phosphatase (38-126) U/L Total Protein (6.3-8.3) g/dL Albumin (3.5-5.0) g/dL Globulin (2.2-3.9) gm/dL Albumin/Globulin Ratio (1.0-2.1) Arterial Blood Potassium (3.6-5.2) mmol/L JENNIFER Nuclear Membr Pat (Negative) 03/20/18 Range/Units 08:24 WBC (4.8-10.8) K/uL RBC (4.40-5.90) Mil/uL Hgb (12.0-18.0) g/dL Hct (35.0-51.0) % MCV (80.0-94.0) fL MCH (27.0-31.0) pg MCHC (33.0-37.0) g/dL RDW (11.5-14.5) % Plt Count (130-400) K/uL MPV (7.2-11.7) fL Neut % (Auto) (50.0-75.0) % Lymph % (Auto) (20.0-40.0) % Hendricks % (Auto) (0.0-10.0) % Eos % (Auto) (0.0-4.0) % Baso % (Auto) (0.0-2.0) % Neut # (Auto) (1.8-7.0) K/uL Lymph # (Auto) (1.0-4.3) K/uL Hendricks # (Auto) (0.0-0.8) K/uL Eos # (Auto) (0.0-0.7) K/uL Baso # (Auto) (0.0-0.2) K/uL Neutrophils % (Manual) (50-75) % Band Neutrophils % (0-2) % Lymphocytes % (Manual) (20-40) % Monocytes % (Manual) (0-10) % Platelet Estimate (NORMAL) Giant Platelets Polychromasia Hypochromasia (manual) Poikilocytosis (manual Anisocytosis (manual) APTT (21-34) SECONDS Puncture Site pCO2 (35-45) mm/Hg pO2 (80-100) mm/Hg HCO3 (21-28) mmol/L ABG pH (7.35-7.45) ABG Total CO2 (22-28) mmol/L ABG O2 Saturation (95-98) % ABG Base Excess (-2.0-3.0) mmol/L Bran Test ABG Potassium (3.6-5.2) mmol/L A-a O2 Difference mm/Hg Respiratory Index Sodium (132-148) mmol/l Chloride (98-107) mmol/L Glucose (75-110) mg/dl Lactate (0.7-2.1) mmol/L Vent Mode Mechanical Rate FiO2 % Tidal Volume PEEP Potassium (3.6-5.2) mmol/L Carbon Dioxide (22-30) mmol/L Anion Gap (10-20) BUN (9-20) mg/dL Creatinine (0.8-1.5) mg/dL Est GFR ( Amer) Est GFR (Non-Af Amer) POC Glucose (mg/dL) (65-110) mg/dL Random Glucose (75-110) mg/dL Calcium (8.6-10.4) mg/dl Phosphorus (2.5-4.5) mg/dL Magnesium (1.6-2.3) mg/dL Total Bilirubin (0.2-1.3) mg/dL AST (17-59) U/L ALT (21-72) U/L Alkaline Phosphatase (38-126) U/L Total Protein (6.3-8.3) g/dL Albumin (3.5-5.0) g/dL Globulin (2.2-3.9) gm/dL Albumin/Globulin Ratio (1.0-2.1) Arterial Blood Potassium (3.6-5.2) mmol/L JENNIFER Nuclear Membr Pat Negative (Negative) Laboratory Results - last 24 hr 03/20/18 03/22/18 03/22/18 08:24 05:52 11:20 WBC RBC Hgb Hct MCV MCH MCHC RDW Plt Count MPV Neut % (Auto) Lymph % (Auto) Hendricks % (Auto) Eos % (Auto) Baso % (Auto) Neut # (Auto) Lymph # (Auto) Hendricks # (Auto) Eos # (Auto) Baso # (Auto) Neutrophils % (Manual) 91 H Band Neutrophils % 3 H Lymphocytes % (Manual) 2 L Monocytes % (Manual) 4 Platelet Estimate Normal Giant Platelets Present Polychromasia Hypochromasia (manual) Slight Poikilocytosis (manual Slight Anisocytosis (manual) Slight APTT Puncture Site pCO2 pO2 HCO3 ABG pH ABG Total CO2 ABG O2 Saturation ABG Base Excess Bran Test ABG Potassium A-a O2 Difference Respiratory Index Sodium Chloride Glucose Lactate Vent Mode Mechanical Rate FiO2 Tidal Volume PEEP Potassium Carbon Dioxide Anion Gap BUN Creatinine Est GFR ( Amer) Est GFR (Non-Af Amer) POC Glucose (mg/dL) 181 H Random Glucose Calcium Phosphorus Magnesium Total Bilirubin AST ALT Alkaline Phosphatase Total Protein Albumin Globulin Albumin/Globulin Ratio Arterial Blood Potassium JENNIFER Nuclear Membr Pat Negative 03/22/18 03/23/18 03/23/18 17:36 00:10 04:58 WBC RBC Hgb Hct MCV MCH MCHC RDW Plt Count MPV Neut % (Auto) Lymph % (Auto) Hendricks % (Auto) Eos % (Auto) Baso % (Auto) Neut # (Auto) Lymph # (Auto) Hendricks # (Auto) Eos # (Auto) Baso # (Auto) Neutrophils % (Manual) Band Neutrophils % Lymphocytes % (Manual) Monocytes % (Manual) Platelet Estimate Giant Platelets Polychromasia Hypochromasia (manual) Poikilocytosis (manual Anisocytosis (manual) APTT Puncture Site Rr pCO2 35 pO2 176 H HCO3 24.5 ABG pH 7.43 ABG Total CO2 24.3 ABG O2 Saturation 99.7 H ABG Base Excess -0.6 Bran Test Pos ABG Potassium 4.4 A-a O2 Difference 65.0 Respiratory Index 0.4 Sodium 146.0 Chloride 121.0 H Glucose 222 H Lactate 1.1 Vent Mode Prvc Mechanical Rate 20 FiO2 40.0 Tidal Volume 500 PEEP 7 Potassium Carbon Dioxide Anion Gap BUN Creatinine Est GFR ( Amer) Est GFR (Non-Af Amer) POC Glucose (mg/dL) 203 H 183 H Random Glucose Calcium Phosphorus Magnesium Total Bilirubin AST ALT Alkaline Phosphatase Total Protein Albumin Globulin Albumin/Globulin Ratio Arterial Blood Potassium 4.4 JENNIFER Nuclear Membr Pat 03/23/18 03/23/18 03/23/18 06:10 06:10 06:10 WBC 15.0 H RBC 3.53 L Hgb 10.2 L Hct 31.7 L MCV 89.9 MCH 29.0 MCHC 32.2 L RDW 14.4 Plt Count 124 L MPV 10.1 Neut % (Auto) 92.4 H Lymph % (Auto) 3.4 L Hendricks % (Auto) 4.0 Eos % (Auto) 0.0 Baso % (Auto) 0.2 Neut # (Auto) 13.9 H Lymph # (Auto) 0.5 L Hendricks # (Auto) 0.6 Eos # (Auto) 0.0 Baso # (Auto) 0.0 Neutrophils % (Manual) 90 H Band Neutrophils % 5 H Lymphocytes % (Manual) 2 L Monocytes % (Manual) 3 Platelet Estimate Slightly decreased L Giant Platelets Polychromasia Slight Hypochromasia (manual) Slight Poikilocytosis (manual Anisocytosis (manual) Slight APTT Puncture Site pCO2 pO2 HCO3 ABG pH ABG Total CO2 ABG O2 Saturation ABG Base Excess Bran Test ABG Potassium A-a O2 Difference Respiratory Index Sodium 143 Chloride 115 H Glucose Lactate Vent Mode Mechanical Rate FiO2 Tidal Volume PEEP Potassium 4.6 Carbon Dioxide 23 Anion Gap 10 BUN 47 H Creatinine 1.4 Est GFR ( Amer) > 60 Est GFR (Non-Af Amer) 51 POC Glucose (mg/dL) Random Glucose 220 H Calcium 8.2 L Phosphorus 2.8 Magnesium 2.6 H Total Bilirubin 0.6 AST 35 ALT 50 Alkaline Phosphatase 93 Total Protein 6.0 L Albumin 3.1 L Globulin 2.9 Albumin/Globulin Ratio 1.1 Arterial Blood Potassium JENNIFER Nuclear Membr Pat 03/23/18 06:10 WBC RBC Hgb Hct MCV MCH MCHC RDW Plt Count MPV Neut % (Auto) Lymph % (Auto) Hendricks % (Auto) Eos % (Auto) Baso % (Auto) Neut # (Auto) Lymph # (Auto) Hendricks # (Auto) Eos # (Auto) Baso # (Auto) Neutrophils % (Manual) Band Neutrophils % Lymphocytes % (Manual) Monocytes % (Manual) Platelet Estimate Giant Platelets Polychromasia Hypochromasia (manual) Poikilocytosis (manual Anisocytosis (manual) APTT 50 H Puncture Site pCO2 pO2 HCO3 ABG pH ABG Total CO2 ABG O2 Saturation ABG Base Excess Bran Test ABG Potassium A-a O2 Difference Respiratory Index Sodium Chloride Glucose Lactate Vent Mode Mechanical Rate FiO2 Tidal Volume PEEP Potassium Carbon Dioxide Anion Gap BUN Creatinine Est GFR ( Amer) Est GFR (Non-Af Amer) POC Glucose (mg/dL) Random Glucose Calcium Phosphorus Magnesium Total Bilirubin AST ALT Alkaline Phosphatase Total Protein Albumin Globulin Albumin/Globulin Ratio Arterial Blood Potassium JENNIFER Nuclear Membr Pat Radiology Impressions: Radiology Impressions Head CT 03/22/18 06:00 IMPRESSION: Limited motion degraded study. Suspect minor chronic periventricular white matter ischemic changes. Questionable dilated perivascular space versus tiny infarct left inferior basal ganglia Mild generalized volume loss Previously noted right MCA trifurcation aneurysm is poorly delineated on this exam. Fingerstick Blood Sugar Results: 203 Review of Systems - Review of Systems Systems not reviewed;Unavailable: Intubated Critical Care Progress Note - Ventilator Checklist Head of Bed 30 Degrees: Yes Daily Sedation Vacation: Yes Daily Assessment of Readiness to Wean: Yes Daily Spontaneous Breathing Trial: Yes PUD Prophalyxis: Yes DVT Prophylaxis: Yes Oral Care with Chlorhexidine Gluconate {CHG}: Yes - Vent Settings MODE:: PRVC TIDAL VOLUME:: 500 RESP RATE:: 20 FIO2:: 40 PEEP:: 7 - Extremities/Vascular Does the Patient have a Central Venous Catheter?: No Does the Patient need a Central Venous Catheter?: No Does the Patient have a Melvin Catheter?: Yes Does the Patient need a Melvin Catheter?: Yes Catheter Insertion Criteria: Need for accurate measurement of output in critically ill patient - Prophylaxis GI Prophylaxis GI: PPI - Prophylaxis DVT Prophylaxis DVT: Heparin SQ Assessment/Plan - Assessment and Plan (Free Text) Assessment: 67 year old male with PMH of pulmonary fibrosis, DM, HTN, and BPH admitted to ICU s/p cardiac arrest (Vfib/Vtach/NSTEMI). Pending cardiac cath with cardiac team Neuro Not awake or alert, off sedation (propofol drip) CT head (1-5) shows 9x11 mm R MCA aneurysm; no subarachnoid hemorrhage Pulm Intubated and on vent maintain spo2>92% daily weaning trials s/p cardiac cath Methylprednisolone and Duoneb CTA negative for P.E CV plan for cardiac cath as per cardio s/p cardiac arrest on admission, elevated troponins Heparin drip; Aspirin, Lopressor, Amiodarone GI no active issues; G tube for feedings on glucerna Renal NS @ 50mls/hr for elevated creatinine; trending down Repeat labs in AM ID [id number] renal dose cx all negative elevated white count, trending down; afebrile Disposition: Cardiac cath then extubate patient as per ICU team PGY-1 Kae Wall Medical Managment discussed with Dr. Salazar <Jonathan Salazar - Last Filed: 03/23/18 16:29> CCU Subjective - Physician Review Critical Care Time Spent (in minutes): 45 CCU Objective - Vital Signs / Intake & Output Intake and Output (Last 8hrs): Intake & Output 03/23/18 03/23/18 03/23/18 06:59 14:59 22:59 Intake Total 1024 50 Output Total 400 Balance 624 50 Weight 163 lb 3.2 oz Intake: IV 80 50 Intake, IV Amount 944 Left Hand 72 Right Antecubital 800 Right Hand 72 Output: Urine 400 Urethral (Melvin) 400 - Medications Active Medications: Active Medications Generic Name Dose Route Start Last Admin Trade Name Freq PRN Reason Stop Dose Admin Albuterol/Ipratropium 3 ml 03/20/18 14:00 03/23/18 07:45 Duoneb 3 Mg/0.5 Mg (3 Ml) Ud INH 3 ml RQ6 DOUG Administration Amiodarone HCl 200 mg 03/20/18 19:15 03/23/18 10:46 Cordarone PO 200 mg BID DOUG Administration Aspirin 81 mg 03/20/18 10:00 03/23/18 10:46 Aspirin Chewable PO 81 mg DAILY DOUG Administration Heparin Sodium/Sodium Chloride 25,000 units in 250 mls @ 9.036 mls/hr 03/20/18 15:00 03/22/18 23:06 Heparin 72361 Units/250ml 1/2 Normal Saline IV 12 units/kg/hr .Q24H PRN 9.036 mls/hr ADJUST RATE PER PROTOCOL Administration Protocol 12 UNITS/KG/HR Propofol 1,000 mg in 100 mls @ 2.259 mls/hr 03/20/18 21:02 03/23/18 08:00 Diprivan IV 0 mcg/kg/min .Q24H PRN 0 mls/hr TITRATE PER MD ORDER Titration Protocol 5 MCG/KG/MIN Piperacillin Sod/Tazobactam Sod 2.25 gm in 50 mls @ 100 mls/hr 03/21/18 19:00 03/23/18 06:07 Zosyn 2.25 Gm Iv Premix IVPB 100 mls/hr Q6H DOUG Administration Protocol Sodium Chloride 1,000 mls @ 50 mls/hr 03/22/18 09:11 03/23/18 05:16 Sodium Chloride 0.9% IV Not Given .Q20H DOUG Insulin Aspart 0 unit 03/19/18 20:00 03/23/18 06:07 Novolog SC 3 units Q6 DOUG Administration Protocol Methylprednisolone 40 mg 03/22/18 10:00 03/23/18 10:46 Solu-Medrol IVP 40 mg Q12 DOUG Administration Metoprolol Tartrate 25 mg 03/20/18 10:00 03/23/18 10:46 Lopressor PO 25 mg BID DOUG Administration Morphine Sulfate 2 mg 03/22/18 15:48 Morphine IVP Q4 PRN Sedation Pantoprazole Sodium 40 mg 03/20/18 10:00 03/23/18 10:46 Protonix Inj IVP 40 mg DAILY DOUG Administration - Patient Studies Lab Studies: Microbiology Studies 03/19/18 20:30 Blood Culture - Preliminary Blood NO GROWTH AFTER 3 DAYS 03/19/18 21:10 Blood Culture - Preliminary Blood NO GROWTH AFTER 3 DAYS Lab Studies 03/23/18 03/23/18 03/23/18 Range/Units 11:17 06:10 06:10 WBC (4.8-10.8) K/uL RBC (4.40-5.90) Mil/uL Hgb (12.0-18.0) g/dL Hct (35.0-51.0) % MCV (80.0-94.0) fL MCH (27.0-31.0) pg MCHC (33.0-37.0) g/dL RDW (11.5-14.5) % Plt Count (130-400) K/uL MPV (7.2-11.7) fL Neut % (Auto) (50.0-75.0) % Lymph % (Auto) (20.0-40.0) % Hendricks % (Auto) (0.0-10.0) % Eos % (Auto) (0.0-4.0) % Baso % (Auto) (0.0-2.0) % Neut # (Auto) (1.8-7.0) K/uL Lymph # (Auto) (1.0-4.3) K/uL Hendricks # (Auto) (0.0-0.8) K/uL Eos # (Auto) (0.0-0.7) K/uL Baso # (Auto) (0.0-0.2) K/uL Neutrophils % (Manual) (50-75) % Band Neutrophils % (0-2) % Lymphocytes % (Manual) (20-40) % Monocytes % (Manual) (0-10) % Platelet Estimate (NORMAL) Polychromasia Hypochromasia (manual) Anisocytosis (manual) APTT 50 H (21-34) SECONDS Puncture Site pCO2 (35-45) mm/Hg pO2 (80-100) mm/Hg HCO3 (21-28) mmol/L ABG pH (7.35-7.45) ABG Total CO2 (22-28) mmol/L ABG O2 Saturation (95-98) % ABG Base Excess (-2.0-3.0) mmol/L Bran Test ABG Potassium (3.6-5.2) mmol/L A-a O2 Difference mm/Hg Respiratory Index Sodium (132-148) mmol/l Chloride (98-107) mmol/L Glucose (75-110) mg/dl Lactate (0.7-2.1) mmol/L Vent Mode Mechanical Rate FiO2 % Tidal Volume PEEP Potassium (3.6-5.2) mmol/L Carbon Dioxide (22-30) mmol/L Anion Gap (10-20) BUN (9-20) mg/dL Creatinine (0.8-1.5) mg/dL Est GFR ( Amer) Est GFR (Non-Af Amer) POC Glucose (mg/dL) 245 H (65-110) mg/dL Random Glucose (75-110) mg/dL Calcium (8.6-10.4) mg/dl Phosphorus 2.8 (2.5-4.5) mg/dL Magnesium 2.6 H (1.6-2.3) mg/dL Total Bilirubin (0.2-1.3) mg/dL AST (17-59) U/L ALT (21-72) U/L Alkaline Phosphatase (38-126) U/L Total Protein (6.3-8.3) g/dL Albumin (3.5-5.0) g/dL Globulin (2.2-3.9) gm/dL Albumin/Globulin Ratio (1.0-2.1) Arterial Blood Potassium (3.6-5.2) mmol/L JENNIFER Nuclear Membr Pat (Negative) 03/23/18 03/23/18 03/23/18 Range/Units 06:10 06:10 04:58 WBC 15.0 H (4.8-10.8) K/uL RBC 3.53 L (4.40-5.90) Mil/uL Hgb 10.2 L (12.0-18.0) g/dL Hct 31.7 L (35.0-51.0) % MCV 89.9 (80.0-94.0) fL MCH 29.0 (27.0-31.0) pg MCHC 32.2 L (33.0-37.0) g/dL RDW 14.4 (11.5-14.5) % Plt Count 124 L (130-400) K/uL MPV 10.1 (7.2-11.7) fL Neut % (Auto) 92.4 H (50.0-75.0) % Lymph % (Auto) 3.4 L (20.0-40.0) % Hendricks % (Auto) 4.0 (0.0-10.0) % Eos % (Auto) 0.0 (0.0-4.0) % Baso % (Auto) 0.2 (0.0-2.0) % Neut # (Auto) 13.9 H (1.8-7.0) K/uL Lymph # (Auto) 0.5 L (1.0-4.3) K/uL Hendricks # (Auto) 0.6 (0.0-0.8) K/uL Eos # (Auto) 0.0 (0.0-0.7) K/uL Baso # (Auto) 0.0 (0.0-0.2) K/uL Neutrophils % (Manual) 90 H (50-75) % Band Neutrophils % 5 H (0-2) % Lymphocytes % (Manual) 2 L (20-40) % Monocytes % (Manual) 3 (0-10) % Platelet Estimate Slightly decreased L (NORMAL) Polychromasia Slight Hypochromasia (manual) Slight Anisocytosis (manual) Slight APTT (21-34) SECONDS Puncture Site Rr pCO2 35 (35-45) mm/Hg pO2 176 H (80-100) mm/Hg HCO3 24.5 (21-28) mmol/L ABG pH 7.43 (7.35-7.45) ABG Total CO2 24.3 (22-28) mmol/L ABG O2 Saturation 99.7 H (95-98) % ABG Base Excess -0.6 (-2.0-3.0) mmol/L Bran Test Pos ABG Potassium 4.4 (3.6-5.2) mmol/L A-a O2 Difference 65.0 mm/Hg Respiratory Index 0.4 Sodium 143 146.0 (132-148) mmol/l Chloride 115 H 121.0 H (98-107) mmol/L Glucose 222 H (75-110) mg/dl Lactate 1.1 (0.7-2.1) mmol/L Vent Mode Prvc Mechanical Rate 20 FiO2 40.0 % Tidal Volume 500 PEEP 7 Potassium 4.6 (3.6-5.2) mmol/L Carbon Dioxide 23 (22-30) mmol/L Anion Gap 10 (10-20) BUN 47 H (9-20) mg/dL Creatinine 1.4 (0.8-1.5) mg/dL Est GFR ( Amer) > 60 Est GFR (Non-Af Amer) 51 POC Glucose (mg/dL) (65-110) mg/dL Random Glucose 220 H (75-110) mg/dL Calcium 8.2 L (8.6-10.4) mg/dl Phosphorus (2.5-4.5) mg/dL Magnesium (1.6-2.3) mg/dL Total Bilirubin 0.6 (0.2-1.3) mg/dL AST 35 (17-59) U/L ALT 50 (21-72) U/L Alkaline Phosphatase 93 (38-126) U/L Total Protein 6.0 L (6.3-8.3) g/dL Albumin 3.1 L (3.5-5.0) g/dL Globulin 2.9 (2.2-3.9) gm/dL Albumin/Globulin Ratio 1.1 (1.0-2.1) Arterial Blood Potassium 4.4 (3.6-5.2) mmol/L JENNIFER Nuclear Membr Pat (Negative) 03/23/18 03/22/1803/22/19 Range/Units 00:10 17:36 11:20 WBC (4.8-10.8) K/uL RBC (4.40-5.90) Mil/uL Hgb (12.0-18.0) g/dL Hct (35.0-51.0) % MCV (80.0-94.0) fL MCH (27.0-31.0) pg MCHC (33.0-37.0) g/dL RDW (11.5-14.5) % Plt Count (130-400) K/uL MPV (7.2-11.7) fL Neut % (Auto) (50.0-75.0) % Lymph % (Auto) (20.0-40.0) % Hendricks % (Auto) (0.0-10.0) % Eos % (Auto) (0.0-4.0) % Baso % (Auto) (0.0-2.0) % Neut # (Auto) (1.8-7.0) K/uL Lymph # (Auto) (1.0-4.3) K/uL Hendricks # (Auto) (0.0-0.8) K/uL Eos # (Auto) (0.0-0.7) K/uL Baso # (Auto) (0.0-0.2) K/uL Neutrophils % (Manual) (50-75) % Band Neutrophils % (0-2) % Lymphocytes % (Manual) (20-40) % Monocytes % (Manual) (0-10) % Platelet Estimate (NORMAL) Polychromasia Hypochromasia (manual) Anisocytosis (manual) APTT (21-34) SECONDS Puncture Site pCO2 (35-45) mm/Hg pO2 (80-100) mm/Hg HCO3 (21-28) mmol/L ABG pH (7.35-7.45) ABG Total CO2 (22-28) mmol/L ABG O2 Saturation (95-98) % ABG Base Excess (-2.0-3.0) mmol/L Bran Test ABG Potassium (3.6-5.2) mmol/L A-a O2 Difference mm/Hg Respiratory Index Sodium (132-148) mmol/l Chloride (98-107) mmol/L Glucose (75-110) mg/dl Lactate (0.7-2.1) mmol/L Vent Mode Mechanical Rate FiO2 % Tidal Volume PEEP Potassium (3.6-5.2) mmol/L Carbon Dioxide (22-30) mmol/L Anion Gap (10-20) BUN (9-20) mg/dL Creatinine (0.8-1.5) mg/dL Est GFR ( Amer) Est GFR (Non-Af Amer) POC Glucose (mg/dL) 183 H 203 H 181 H (65-110) mg/dL Random Glucose (75-110) mg/dL Calcium (8.6-10.4) mg/dl Phosphorus (2.5-4.5) mg/dL Magnesium (1.6-2.3) mg/dL Total Bilirubin (0.2-1.3) mg/dL AST (17-59) U/L ALT (21-72) U/L Alkaline Phosphatase (38-126) U/L Total Protein (6.3-8.3) g/dL Albumin (3.5-5.0) g/dL Globulin (2.2-3.9) gm/dL Albumin/Globulin Ratio (1.0-2.1) Arterial Blood Potassium (3.6-5.2) mmol/L JENNIFER Nuclear Membr Pat (Negative) 03/20/18 Range/Units 08:24 WBC (4.8-10.8) K/uL RBC (4.40-5.90) Mil/uL Hgb (12.0-18.0) g/dL Hct (35.0-51.0) % MCV (80.0-94.0) fL MCH (27.0-31.0) pg MCHC (33.0-37.0) g/dL RDW (11.5-14.5) % Plt Count (130-400) K/uL MPV (7.2-11.7) fL Neut % (Auto) (50.0-75.0) % Lymph % (Auto) (20.0-40.0) % Hendricks % (Auto) (0.0-10.0) % Eos % (Auto) (0.0-4.0) % Baso % (Auto) (0.0-2.0) % Neut # (Auto) (1.8-7.0) K/uL Lymph # (Auto) (1.0-4.3) K/uL Hendricks # (Auto) (0.0-0.8) K/uL Eos # (Auto) (0.0-0.7) K/uL Baso # (Auto) (0.0-0.2) K/uL Neutrophils % (Manual) (50-75) % Band Neutrophils % (0-2) % Lymphocytes % (Manual) (20-40) % Monocytes % (Manual) (0-10) % Platelet Estimate (NORMAL) Polychromasia Hypochromasia (manual) Anisocytosis (manual) APTT (21-34) SECONDS Puncture Site pCO2 (35-45) mm/Hg pO2 (80-100) mm/Hg HCO3 (21-28) mmol/L ABG pH (7.35-7.45) ABG Total CO2 (22-28) mmol/L ABG O2 Saturation (95-98) % ABG Base Excess (-2.0-3.0) mmol/L Bran Test ABG Potassium (3.6-5.2) mmol/L A-a O2 Difference mm/Hg Respiratory Index Sodium (132-148) mmol/l Chloride (98-107) mmol/L Glucose (75-110) mg/dl Lactate (0.7-2.1) mmol/L Vent Mode Mechanical Rate FiO2 % Tidal Volume PEEP Potassium (3.6-5.2) mmol/L Carbon Dioxide (22-30) mmol/L Anion Gap (10-20) BUN (9-20) mg/dL Creatinine (0.8-1.5) mg/dL Est GFR ( Amer) Est GFR (Non-Af Amer) POC Glucose (mg/dL) (65-110) mg/dL Random Glucose (75-110) mg/dL Calcium (8.6-10.4) mg/dl Phosphorus (2.5-4.5) mg/dL Magnesium (1.6-2.3) mg/dL Total Bilirubin (0.2-1.3) mg/dL AST (17-59) U/L ALT (21-72) U/L Alkaline Phosphatase (38-126) U/L Total Protein (6.3-8.3) g/dL Albumin (3.5-5.0) g/dL Globulin (2.2-3.9) gm/dL Albumin/Globulin Ratio (1.0-2.1) Arterial Blood Potassium (3.6-5.2) mmol/L JENNIFER Nuclear Membr Pat Negative (Negative) Laboratory Results - last 24 hr 03/20/18 03/22/18 03/22/18 08:24 11:20 17:36 WBC RBC Hgb Hct MCV MCH MCHC RDW Plt Count MPV Neut % (Auto) Lymph % (Auto) Hendricks % (Auto) Eos % (Auto) Baso % (Auto) Neut # (Auto) Lymph # (Auto) Hendricks # (Auto) Eos # (Auto) Baso # (Auto) Neutrophils % (Manual) Band Neutrophils % Lymphocytes % (Manual) Monocytes % (Manual) Platelet Estimate Polychromasia Hypochromasia (manual) Anisocytosis (manual) APTT Puncture Site pCO2 pO2 HCO3 ABG pH ABG Total CO2 ABG O2 Saturation ABG Base Excess Bran Test ABG Potassium A-a O2 Difference Respiratory Index Sodium Chloride Glucose Lactate Vent Mode Mechanical Rate FiO2 Tidal Volume PEEP Potassium Carbon Dioxide Anion Gap BUN Creatinine Est GFR ( Amer) Est GFR (Non-Af Amer) POC Glucose (mg/dL) 181 H 203 H Random Glucose Calcium Phosphorus Magnesium Total Bilirubin AST ALT Alkaline Phosphatase Total Protein Albumin Globulin Albumin/Globulin Ratio Arterial Blood Potassium JENNIFER Nuclear Membr Pat Negative 03/23/18 03/23/18 03/23/18 00:10 04:58 06:10 WBC 15.0 H RBC 3.53 L Hgb 10.2 L Hct 31.7 L MCV 89.9 MCH 29.0 MCHC 32.2 L RDW 14.4 Plt Count 124 L MPV 10.1 Neut % (Auto) 92.4 H Lymph % (Auto) 3.4 L Hendricks % (Auto) 4.0 Eos % (Auto) 0.0 Baso % (Auto) 0.2 Neut # (Auto) 13.9 H Lymph # (Auto) 0.5 L Hendricks # (Auto) 0.6 Eos # (Auto) 0.0 Baso # (Auto) 0.0 Neutrophils % (Manual) 90 H Band Neutrophils % 5 H Lymphocytes % (Manual) 2 L Monocytes % (Manual) 3 Platelet Estimate Slightly decreased L Polychromasia Slight Hypochromasia (manual) Slight Anisocytosis (manual) Slight APTT Puncture Site Rr pCO2 35 pO2 176 H HCO3 24.5 ABG pH 7.43 ABG Total CO2 24.3 ABG O2 Saturation 99.7 H ABG Base Excess -0.6 Bran Test Pos ABG Potassium 4.4 A-a O2 Difference 65.0 Respiratory Index 0.4 Sodium 146.0 Chloride 121.0 H Glucose 222 H Lactate 1.1 Vent Mode Prvc Mechanical Rate 20 FiO2 40.0 Tidal Volume 500 PEEP 7 Potassium Carbon Dioxide Anion Gap BUN Creatinine Est GFR ( Amer) Est GFR (Non-Af Amer) POC Glucose (mg/dL) 183 H Random Glucose Calcium Phosphorus Magnesium Total Bilirubin AST ALT Alkaline Phosphatase Total Protein Albumin Globulin Albumin/Globulin Ratio Arterial Blood Potassium 4.4 JENNIFER Nuclear Membr Pat 03/23/18 03/23/18 03/23/18 06:10 06:10 06:10 WBC RBC Hgb Hct MCV MCH MCHC RDW Plt Count MPV Neut % (Auto) Lymph % (Auto) Hendricks % (Auto) Eos % (Auto) Baso % (Auto) Neut # (Auto) Lymph # (Auto) Hendricks # (Auto) Eos # (Auto) Baso # (Auto) Neutrophils % (Manual) Band Neutrophils % Lymphocytes % (Manual) Monocytes % (Manual) Platelet Estimate Polychromasia Hypochromasia (manual) Anisocytosis (manual) APTT 50 H Puncture Site pCO2 pO2 HCO3 ABG pH ABG Total CO2 ABG O2 Saturation ABG Base Excess Bran Test ABG Potassium A-a O2 Difference Respiratory Index Sodium 143 Chloride 115 H Glucose Lactate Vent Mode Mechanical Rate FiO2 Tidal Volume PEEP Potassium 4.6 Carbon Dioxide 23 Anion Gap 10 BUN 47 H Creatinine 1.4 Est GFR ( Amer) > 60 Est GFR (Non-Af Amer) 51 POC Glucose (mg/dL) Random Glucose 220 H Calcium 8.2 L Phosphorus 2.8 Magnesium 2.6 H Total Bilirubin 0.6 AST 35 ALT 50 Alkaline Phosphatase 93 Total Protein 6.0 L Albumin 3.1 L Globulin 2.9 Albumin/Globulin Ratio 1.1 Arterial Blood Potassium JENNIFER Nuclear Membr Pat 03/23/18 11:17 WBC RBC Hgb Hct MCV MCH MCHC RDW Plt Count MPV Neut % (Auto) Lymph % (Auto) Hendricks % (Auto) Eos % (Auto) Baso % (Auto) Neut # (Auto) Lymph # (Auto) Hendricks # (Auto) Eos # (Auto) Baso # (Auto) Neutrophils % (Manual) Band Neutrophils % Lymphocytes % (Manual) Monocytes % (Manual) Platelet Estimate Polychromasia Hypochromasia (manual) Anisocytosis (manual) APTT Puncture Site pCO2 pO2 HCO3 ABG pH ABG Total CO2 ABG O2 Saturation ABG Base Excess Bran Test ABG Potassium A-a O2 Difference Respiratory Index Sodium Chloride Glucose Lactate Vent Mode Mechanical Rate FiO2 Tidal Volume PEEP Potassium Carbon Dioxide Anion Gap BUN Creatinine Est GFR ( Amer) Est GFR (Non-Af Amer) POC Glucose (mg/dL) 245 H Random Glucose Calcium Phosphorus Magnesium Total Bilirubin AST ALT Alkaline Phosphatase Total Protein Albumin Globulin Albumin/Globulin Ratio Arterial Blood Potassium JENNIFER Nuclear Membr Pat Radiology Impressions: Radiology Impressions Chest X-Ray 03/23/18 06:00 Impression: Lines and tubes in stable position. Biapical pleural thickening with upper lobe granulomatous changes. Moderate to severe venous congestion. Patchy increased markings at the left lung base with small left pleural effusion. Cardiomegaly. Chest CT 03/23/18 10:08 Impression: Examination is severely limited due to patient respiratory, motion, and streak artifact. Centrilobular emphysema with component of pulmonary fibrosis and pulmonary venous congestion. Limited visualization of the noncontrast upper abdomen: Motion artifact favored over pancreatic edema however recommend correlation with amylase and lipase. Heterogeneous appearance of the hepatic parenchyma also suboptimally visualized due to artifact; unremarkable appearance on CT of the chest performed 03/19/18. Small hiatal hernia. Ribs X-Ray 03/23/18 15:00 IMPRESSION: Mildly displaced left 3rd and 5th rib fracture deformities. Coarse calcification, left lower lobe and evidence of calcified granulomas more medially in the left lower lobe; not well-visualized on CT of the chest performed the same day due to motion. Cardiomegaly. Endotracheal tube. Nasogastric tube. Attending/Attestation - Attestation I have personally seen and examined this patient.: Yes I have fully participated in the care of the patient.: Yes I have reviewed all pertinent clinical information: Yes Notes (Text): 03/23/18 16:28 Patient seen and examined in the intensive care unit. Remained intubated on ventilatory support More responsive Possible cardiac catheter tomorrow Continue present treatment Pulmonary fibrosis on CAT scan of chest
[2018-03-23] MEDS: MethylPREDNISolone 40 mg Vial IVP SCH ×2 (10:46→21:23)
--- NOTE | 2018-03-23 13:09 | RAD ---
Chest x-ray single frontal view History: Intubated. Comparison: 03/22/2017 Findings: Lines and tubes in stable position. Biapical pleural thickening with upper lobe granulomatous changes. Moderate to severe venous congestion. Patchy increased markings at the left lung base with small left pleural effusion. Cardiomegaly. Degenerative changes in the spine and shoulders. Impression: Lines and tubes in stable position. Biapical pleural thickening with upper lobe granulomatous changes. Moderate to severe venous congestion. Patchy increased markings at the left lung base with small left pleural effusion. Cardiomegaly.
--- NOTE | 2018-03-23 13:12 | CP.PCM.PN ---
Subjective - Date & Time of Evaluation Date of Evaluation: 03/23/18 Time of Evaluation: 13:10 - Subjective Subjective: seen and examined no events intubated good uop Objective - Vital Signs/Intake and Output Vital Signs (last 24 hours): Temp Pulse Resp BP Pulse Ox 99.2 F 64 20 171/66 H 100 03/23/18 04:00 03/23/18 08:53 03/23/18 08:53 03/23/18 10:46 03/23/18 08:53 Intake and Output: 03/23/18 03/23/18 06:59 18:59 Intake Total 1687 50 Output Total 600 Balance 1087 50 - Medications Medications: Current Medications Albuterol/Ipratropium (Duoneb 3 Mg/0.5 Mg (3 Ml) Ud) 3 ml INH RQ6 [facility] Last Admin: 03/23/18 07:45 Dose: 3 ml Amiodarone HCl (Cordarone) 200 mg PO BID [facility] Last Admin: 03/23/18 10:46 Dose: 200 mg Aspirin (Aspirin Chewable) 81 mg PO DAILY [facility] Last Admin: 03/23/18 10:46 Dose: 81 mg Heparin Sodium/Sodium Chloride (Heparin 79608 Units/250ml 1/2 Normal Saline) 25,000 units in 250 mls @ 9.036 mls/hr IV .Q24H PRN; Protocol PRN Reason: ADJUST RATE PER PROTOCOL Last Admin: 03/22/18 23:06 Dose: 12 units/kg/hr, 9.036 mls/hr Propofol (Diprivan) 1,000 mg in 100 mls @ 2.259 mls/hr IV .Q24H PRN; Protocol PRN Reason: TITRATE PER MD ORDER Last Titration: 03/23/18 08:00 Dose: 0 mcg/kg/min, 0 mls/hr Piperacillin Sod/Tazobactam Sod (Zosyn 2.25 Gm Iv Premix) 2.25 gm in 50 mls @ 100 mls/hr IVPB Q6H [facility]; Protocol Last Admin: 03/23/18 06:07 Dose: 100 mls/hr Sodium Chloride (Sodium Chloride 0.9%) 1,000 mls @ 50 mls/hr IV .Q20H [facility] Last Admin: 03/23/18 05:16 Dose: Not Given Insulin Aspart (Novolog) 0 unit SC Q6 [facility]; Protocol Last Admin: 03/23/18 06:07 Dose: 3 units Methylprednisolone (Solu-Medrol) 40 mg IVP Q12 [facility] Last Admin: 03/23/18 10:46 Dose: 40 mg Metoprolol Tartrate (Lopressor) 25 mg PO BID [facility] Last Admin: 03/23/18 10:46 Dose: 25 mg Morphine Sulfate (Morphine) 2 mg IVP Q4 PRN PRN Reason: Sedation Pantoprazole Sodium (Protonix Inj) 40 mg IVP DAILY [facility] Last Admin: 03/23/18 10:46 Dose: 40 mg - Labs Labs: 03/23/18 06:10 03/23/18 06:10 PT 12.9 SECONDS (9.7-12.2) H 03/21/18 04:41 INR 1.2 03/21/18 04:41 APTT 50 SECONDS (21-34) H 03/23/18 06:10 - Constitutional Appears: Non-toxic, No Acute Distress - Head Exam Head Exam: NORMAL INSPECTION, NORMOCEPHALIC - Eye Exam Eye Exam: Normal appearance, PERRL - ENT Exam ENT Exam: Mucous Membranes Moist, Normal Exam - Neck Exam Neck Exam: Normal Inspection - Respiratory Exam Respiratory Exam: NORMAL BREATHING PATTERN (b/l air entry, vent) - Cardiovascular Exam Cardiovascular Exam: REGULAR RHYTHM, RRR - GI/Abdominal Exam GI & Abdominal Exam: Distended, Soft - Extremities Exam Extremities Exam: Normal Inspection - Skin Skin Exam: Intact, Warm Assessment and Plan (1) ABDULKADIR (acute kidney injury) Status: Acute (2) Cardiac arrest Status: Acute (3) NSTEMI (non-ST elevated myocardial infarction) Status: Acute (4) Diabetes Status: Chronic (5) HTN (hypertension) Status: Chronic - Assessment and Plan (Free Text) Assessment: improving renal function, maintain ivf electrolytes acceptable ok for cardiac cath from renal standpoint
--- NOTE | 2018-03-23 13:53 | CP.PCM.PN ---
Subjective - Date & Time of Evaluation Date of Evaluation: 03/23/18 Time of Evaluation: 12:00 - Subjective Subjective: Patient was seen with family members at bedside this morning. Patient was not agitated like yesterday At this moment we are pending transfer at some time to [facility] for catherization As of this morning he remained intubated on PRVC settings As previously mentioned this is a 67 year old male with a history of COPD/Pulmonary fibrosis, and diabetes who on 03/19/2018 went into Vfib arrest/cardiac arrest/NSTEMI and was intubated. There has been concern for anoxic brain injury as he intially was minimally responsive. This morning he was awake very agitated, it was difficult to informatics educator if he was responsive to commands. He is moving his arms. Per editing intern he may need cardiac catherization soon however florscopy is said to be non functional at the moment at [facility] and he maybe in need of transfer. Objective - Vital Signs/Intake and Output Vital Signs (last 24 hours): Temp Pulse Resp BP Pulse Ox 99.2 F 64 20 171/66 H 100 03/23/18 04:00 03/23/18 08:53 03/23/18 08:53 03/23/18 10:46 03/23/18 08:53 Intake and Output: 03/23/18 03/23/18 06:59 18:59 Intake Total 1687 50 Output Total 600 Balance 1087 50 - Medications Medications: Current Medications Albuterol/Ipratropium (Duoneb 3 Mg/0.5 Mg (3 Ml) Ud) 3 ml INH RQ6 [facility] Last Admin: 03/23/18 07:45 Dose: 3 ml Amiodarone HCl (Cordarone) 200 mg PO BID [facility] Last Admin: 03/23/18 10:46 Dose: 200 mg Aspirin (Aspirin Chewable) 81 mg PO DAILY [facility] Last Admin: 03/23/18 10:46 Dose: 81 mg Heparin Sodium/Sodium Chloride (Heparin 52021 Units/250ml 1/2 Normal Saline) 25,000 units in 250 mls @ 9.036 mls/hr IV .Q24H PRN; Protocol PRN Reason: ADJUST RATE PER PROTOCOL Last Admin: 03/22/18 23:06 Dose: 12 units/kg/hr, 9.036 mls/hr Propofol (Diprivan) 1,000 mg in 100 mls @ 2.259 mls/hr IV .Q24H PRN; Protocol PRN Reason: TITRATE PER MD ORDER Last Titration: 03/23/18 08:00 Dose: 0 mcg/kg/min, 0 mls/hr Piperacillin Sod/Tazobactam Sod (Zosyn 2.25 Gm Iv Premix) 2.25 gm in 50 mls @ 100 mls/hr IVPB Q6H [facility]; Protocol Last Admin: 03/23/18 06:07 Dose: 100 mls/hr Sodium Chloride (Sodium Chloride 0.9%) 1,000 mls @ 50 mls/hr IV .Q20H [facility] Last Admin: 03/23/18 05:16 Dose: Not Given Insulin Aspart (Novolog) 0 unit SC Q6 [facility]; Protocol Last Admin: 03/23/18 06:07 Dose: 3 units Methylprednisolone (Solu-Medrol) 40 mg IVP Q12 [facility] Last Admin: 03/23/18 10:46 Dose: 40 mg Metoprolol Tartrate (Lopressor) 25 mg PO BID [facility] Last Admin: 03/23/18 10:46 Dose: 25 mg Morphine Sulfate (Morphine) 2 mg IVP Q4 PRN PRN Reason: Sedation Pantoprazole Sodium (Protonix Inj) 40 mg IVP DAILY [facility] Last Admin: 03/23/18 10:46 Dose: 40 mg - Labs Labs: 03/23/18 06:10 03/23/18 06:10 PT 12.9 SECONDS (9.7-12.2) H 03/21/18 04:41 INR 1.2 03/21/18 04:41 APTT 50 SECONDS (21-34) H 03/23/18 06:10 - Constitutional Appears: No Acute Distress - ENT Exam ENT Exam: Mucous Membranes Moist - Respiratory Exam Respiratory Exam: Clear to Ausculation Bilateral, NORMAL BREATHING PATTERN - Cardiovascular Exam Cardiovascular Exam: REGULAR RHYTHM - GI/Abdominal Exam GI & Abdominal Exam: Soft. absent: Rigid, Tenderness - Neurological Exam Neurological Exam: Altered - Skin Skin Exam: Normal Color, Warm Assessment and Plan - Assessment and Plan (Free Text) Assessment: - Assessment and Plan (Free Text) Assessment: Unresponsiveness/- suspecting anoxic brain encephalopathy. 03/23 Currently not aitated. 03/22: This morning was awake and agitated despite being on a propofol ggt. It is being titrated at this moment. There is a pending repeat CT for tommorrow. Also EEG spoke to Dr Menjivar Neurologist. 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 03/22: Patient may need cardiac catherization soon. Patient remains on heparin ggt and amiodarone ASA and BB Initial rhythm asytole ,Epi x 3 given, went into VF/VT requiring shock and Amiodarone 300mg Elevated troponin,EKG LBBB(old) Currently in NSR on oral Amiodarone 200mg BID ,off Amiodarone drip,Hemodynamically stable,not on pressors,on metoprolol 25mg po bid ,asprin and heparin drip d/w editing intern Bossman this afternoon. [employer] will follow his creatinine and discuss with his family about cath tomorrow Echo reviewed with editing intern in the ICU, preserved LV function, griselda-septal hypokinesis Leukocytosis,possible pneumonia/lung infection 03/22: Currently the cultures are negative at this time. Remains on IV abx Zosyn WBC remains elevated, maybe from cardiac arrest event. Acute renal failure 03/23: Creatine decreased to 1.4 and U/O 1450 03/22: This morning creatine decreased to 1.6 and urine output was 1065 Currently on IV fluids Nephrology consult appreciated Elevated troponin/NSTEMI 03/23: pending transfer cardiac catherization at [facility] Elevated troponin and s/p CRP LBBB-old r/o coronary disease. on heparin,continue asprin,heparin,metoprolol follow up with editing intern regarding cardiac cath Severe pulmonary fibrosis CT chest centrilobular emphysema and upper lobe pulmonary fobrosis DR Salazar for pulmonary consult do RF,JENNIFER,ESR On IV steroid r/o infection, On zosyn DM monitor sugar Hypertension hold lisinopril,monitor BP Supportive care DVt prophylaxis is on heparin GI prophy is on protonix feeding-NG
--- NOTE | 2018-03-23 14:46 | CT ---
Date of service: 03/23/2018 CT chest without IV contrast Indication: rib fracture Technique: Contiguous axial images were obtained through the chest without intravenous contrast enhancement. Sagittal and coronal reconstructions were generated and reviewed. This CT exam was performed using 1 or more of the following dose reduction techniques: Automated exposure control, adjustment of the MAA and/or kV according to patient size, and/or use of iterative reconstruction technique. Radiation dose (DLP): 816.62 MGy-cm. Comparison: Chest x-ray performed 03/23/18 Findings: Examination limited by motion and streak artifact. Tracheostomy tube terminates above the minnie. Nasogastric tube extends to the stomach. Cardiomegaly. Centrilobular emphysema. Ground-glass pulmonary opacities and peripheral architectural distortion as well as peripheral reticular opacities and honeycombing re-identified. Large bullous changes at the left lung base. Dependent atelectasis. No pleural effusion. No pneumothorax. Limited visualization of the noncontrast upper abdomen: Motion artifact favored over pancreatic edema however recommend correlation with amylase and lipase. Heterogeneous appearance of the hepatic parenchyma also suboptimally visualized due to artifact. Small hiatal hernia. Extensive motion artifact precludes adequate evaluation for fractures. Left 5th rib fracture identified confidently. Impression: Examination is severely limited due to patient respiratory, motion, and streak artifact. Centrilobular emphysema with component of pulmonary fibrosis and pulmonary venous congestion. Limited visualization of the noncontrast upper abdomen: Motion artifact favored over pancreatic edema however recommend correlation with amylase and lipase. Heterogeneous appearance of the hepatic parenchyma also suboptimally visualized due to artifact; unremarkable appearance on CT of the chest performed 03/19/18. Small hiatal hernia. Extensive motion artifact precludes adequate evaluation for fractures. Left 5th rib fracture identified confidently. If indicated, rib series or repeat study recommended when clinically feasible.
--- NOTE | 2018-03-23 16:08 | RAD ---
Date of service: 03/23/2018 PROCEDURE: Radiographs of the chest and bilateral ribs HISTORY: CT shows left 5th rib fx - eval for other rib fx COMPARISON: CT chest without contrast performed earlier the same day. CT of the chest with contrast performed 03/19/18 TECHNIQUE: Frontal radiograph of the chest and multiple oblique radiographs of the bilateral ribs were obtained. FINDINGS: Endotracheal tube. Nasogastric tube RIGHT RIBS: No appreciable displaced right rib fracture deformity. LEFT RIBS: Evidence of mildly displaced left 3rd and 5th rib fractures. LUNGS: No focal consolidation. Coarse calcification, left lower lobe and evidence of calcified granulomas more medially in the left lower lobe. PLEURA: No significant pleural effusion. CARDIOVASCULAR: Cardiomegaly. Atherosclerotic calcifications. OTHER FINDINGS: None. IMPRESSION: Mildly displaced left 3rd and 5th rib fracture deformities. Coarse calcification, left lower lobe and evidence of calcified granulomas more medially in the left lower lobe; not well-visualized on CT of the chest performed the same day due to motion. Cardiomegaly. Endotracheal tube. Nasogastric tube.
--- NOTE | 2018-03-23 16:39 | CP.PCM.PN ---
Subjective - Date & Time of Evaluation Date of Evaluation: 03/23/18 Time of Evaluation: 16:38 - Subjective Subjective: Apparently the pt has several broken ribs from CPR, Rib films have been performed, results pending. Pt remains on respirator. CXR unchanged. BP has been high. 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 Pt responds to his name, thrashes about Objective - Vital Signs/Intake and Output Vital Signs (last 24 hours): Temp Pulse Resp BP Pulse Ox 99.2 F 64 20 171/66 H 100 03/23/18 04:00 03/23/18 08:53 03/23/18 08:53 03/23/18 10:46 03/23/18 08:53 Intake and Output: 03/23/18 03/23/18 06:59 18:59 Intake Total 1687 50 Output Total 600 Balance 1087 50 - Medications Medications: Current Medications Albuterol/Ipratropium (Duoneb 3 Mg/0.5 Mg (3 Ml) Ud) 3 ml INH RQ6 [facility] Last Admin: 03/23/18 07:45 Dose: 3 ml Amiodarone HCl (Cordarone) 200 mg PO BID [facility] Last Admin: 03/23/18 10:46 Dose: 200 mg Aspirin (Aspirin Chewable) 81 mg PO DAILY [facility] Last Admin: 03/23/18 10:46 Dose: 81 mg Heparin Sodium/Sodium Chloride (Heparin 52318 Units/250ml 1/2 Normal Saline) 25,000 units in 250 mls @ 9.036 mls/hr IV .Q24H PRN; Protocol PRN Reason: ADJUST RATE PER PROTOCOL Last Admin: 03/22/18 23:06 Dose: 12 units/kg/hr, 9.036 mls/hr Propofol (Diprivan) 1,000 mg in 100 mls @ 2.259 mls/hr IV .Q24H PRN; Protocol PRN Reason: TITRATE PER MD ORDER Last Titration: 03/23/18 08:00 Dose: 0 mcg/kg/min, 0 mls/hr Piperacillin Sod/Tazobactam Sod (Zosyn 2.25 Gm Iv Premix) 2.25 gm in 50 mls @ 100 mls/hr IVPB Q6H [facility]; Protocol Last Admin: 03/23/18 06:07 Dose: 100 mls/hr Sodium Chloride (Sodium Chloride 0.9%) 1,000 mls @ 50 mls/hr IV .Q20H [facility] Last Admin: 03/23/18 05:16 Dose: Not Given Insulin Aspart (Novolog) 0 unit SC Q6 [facility]; Protocol Last Admin: 03/23/18 06:07 Dose: 3 units Methylprednisolone (Solu-Medrol) 40 mg IVP Q12 [facility] Last Admin: 03/23/18 10:46 Dose: 40 mg Metoprolol Tartrate (Lopressor) 25 mg PO BID [facility] Last Admin: 03/23/18 10:46 Dose: 25 mg Morphine Sulfate (Morphine) 2 mg IVP Q4 PRN PRN Reason: Sedation Pantoprazole Sodium (Protonix Inj) 40 mg IVP DAILY [facility] Last Admin: 03/23/18 10:46 Dose: 40 mg - Labs Labs: 03/23/18 06:10 03/23/18 06:10 PT 12.9 SECONDS (9.7-12.2) H 03/21/18 04:41 INR 1.2 03/21/18 04:41 APTT 50 SECONDS (21-34) H 03/23/18 06:10 - Constitutional Appears: Chronically Ill - Head Exam Head Exam: ATRAUMATIC - Eye Exam Eye Exam: EOMI, PERRL Pupil Exam: NORMAL ACCOMODATION - ENT Exam ENT Exam: Mucous Membranes Moist - Neck Exam Neck Exam: Full ROM - Respiratory Exam Respiratory Exam: Rales, Rhonchi - Cardiovascular Exam Cardiovascular Exam: REGULAR RHYTHM - GI/Abdominal Exam GI & Abdominal Exam: Normal Bowel Sounds - Extremities Exam Extremities Exam: Full ROM - Back Exam Back Exam: NORMAL INSPECTION - Neurological Exam Neurological Exam: Oriented x3 - Skin Skin Exam: Dry Assessment and Plan - Assessment and Plan (Free Text) Assessment: 1. For cardiac cath, hopefully tomorrow. 2. Chris ask for PCWP in cath as hard to interpret lung exam in setting of pulmonary fibrosis. 3. HTN Will rx IV nitro for now, while intubated. . 4. LV EF is normal and max tni was 11. 5. Statin, plavix
[2018-03-23] MEDS ORDERED: Nitroglycerin 50mg in D5W 50 MG/250 ML BOTTLE IV SCH (16:45)
--- NOTE | 2018-03-23 18:42 | CP.PCM.PN ---
<Lauryn Case - Last Filed: 03/23/18 18:40> Subjective - Date & Time of Evaluation Date of Evaluation: 03/23/18 Time of Evaluation: 08:00 - Subjective Subjective: Neurology Progress Note: Patient was seen and examined at bedside in the AM. Per nurse and son at bedside patient was awake, alert and following commands. Limited ROS due to intubation. Objective - Vital Signs/Intake and Output Vital Signs (last 24 hours): Temp Pulse Resp BP Pulse Ox 99.0 F 60 24 177/71 H 100 03/23/18 16:00 03/23/18 18:34 03/23/18 18:00 03/23/18 18:37 03/23/18 18:00 Intake and Output: 03/23/18 03/23/18 06:59 18:59 Intake Total 1687 1962.5 Output Total 600 800 Balance 1087 1162.5 - Medications Medications: Current Medications Albuterol/Ipratropium (Duoneb 3 Mg/0.5 Mg (3 Ml) Ud) 3 ml INH RQ6 [facility] Last Admin: 03/23/18 07:45 Dose: 3 ml Amiodarone HCl (Cordarone) 200 mg PO BID [facility] Last Admin: 03/23/18 18:37 Dose: 200 mg Aspirin (Aspirin Chewable) 81 mg PO DAILY [facility] Last Admin: 03/23/18 10:46 Dose: 81 mg Clopidogrel Bisulfate (Plavix) 75 mg PO DAILY [facility] Last Admin: 03/23/18 18:37 Dose: 75 mg Heparin Sodium/Sodium Chloride (Heparin 12884 Units/250ml 1/2 Normal Saline) 25,000 units in 250 mls @ 9.036 mls/hr IV .Q24H PRN; Protocol PRN Reason: ADJUST RATE PER PROTOCOL Last Admin: 03/22/18 23:06 Dose: 12 units/kg/hr, 9.036 mls/hr Propofol (Diprivan) 1,000 mg in 100 mls @ 2.259 mls/hr IV .Q24H PRN; Protocol PRN Reason: TITRATE PER MD ORDER Last Titration: 03/23/18 08:00 Dose: 0 mcg/kg/min, 0 mls/hr Piperacillin Sod/Tazobactam Sod (Zosyn 2.25 Gm Iv Premix) 2.25 gm in 50 mls @ 100 mls/hr IVPB Q6H [facility]; Protocol Last Admin: 03/23/18 13:38 Dose: 100 mls/hr Sodium Chloride (Sodium Chloride 0.9%) 1,000 mls @ 50 mls/hr IV .Q20H [facility] Last Admin: 03/23/18 18:33 Dose: 50 mls/hr Nitroglycerin/Dextrose (Nitroglycerin 50 Mg/250 Ml D5w) 50 mg in 250 mls @ 1.5 mls/hr IV .Q24H [facility]; Protocol Last Admin: 03/23/18 18:34 Dose: 5 mcg/min, 1.5 mls/hr Insulin Aspart (Novolog) 0 unit SC Q6 [facility]; Protocol Last Admin: 03/23/18 18:34 Dose: 3 units Methylprednisolone (Solu-Medrol) 40 mg IVP Q12 [facility] Last Admin: 03/23/18 10:46 Dose: 40 mg Metoprolol Tartrate (Lopressor) 25 mg PO BID [facility] Last Admin: 03/23/18 18:37 Dose: 25 mg Morphine Sulfate (Morphine) 2 mg IVP Q4 PRN PRN Reason: Sedation Pantoprazole Sodium (Protonix Inj) 40 mg IVP DAILY [facility] Last Admin: 03/23/18 10:46 Dose: 40 mg Rosuvastatin Calcium (Crestor) 10 mg PO HS [facility] - Labs Labs: 03/23/18 06:10 03/23/18 06:10 PT 12.9 SECONDS (9.7-12.2) H 03/21/18 04:41 INR 1.2 03/21/18 04:41 APTT 50 SECONDS (21-34) H 03/23/18 06:10 - Constitutional Appears: No Acute Distress - Head Exam Head Exam: ATRAUMATIC - Eye Exam Eye Exam: EOMI, Normal appearance - ENT Exam Additional comments: ETT - in place - Respiratory Exam Respiratory Exam: NORMAL BREATHING PATTERN - Cardiovascular Exam Cardiovascular Exam: REGULAR RHYTHM, +S1, +S2 - GI/Abdominal Exam GI & Abdominal Exam: Soft, Normal Bowel Sounds. absent: Tenderness - Neurological Exam Neurological Exam: absent: Alert, Awake Assessment and Plan - Assessment and Plan (Free Text) Assessment: 67 year old male with past medical history of pulmonary fibrosis, DM, HTN, and BPH admitted 03/19/18 for chest pain. Patient was admitted to ICU s/p cardiac arrest (Vfib/Vtach/NSTEMI). Plan: Head CT (03/19/18): 9x11mm Right middle cerebral artery aneurysm Head CT (03/22/18): Mild generalized volume loss. Previously noted right MCA aneurysm. Patient is alert, fighting ventilator, able to follow commands From a neurological standpoint patient is able to be extubated. Case discussed with Dr. Pierre Case PGY-2 <Quentin Jay - Last Filed: 03/28/18 14:14> Objective - Vital Signs/Intake and Output Vital Signs (last 24 hours): Temp Pulse Resp BP Pulse Ox 98.3 F 78 18 152/100 H 94 L 03/28/18 09:12 03/28/18 09:12 03/28/18 09:12 03/28/18 11:00 03/28/18 09:12 Intake and Output: 03/28/18 03/28/18 06:59 18:59 Intake Total 0 Balance 0 - Medications Medications: Current Medications Albuterol/Ipratropium (Duoneb 3 Mg/0.5 Mg (3 Ml) Ud) 3 ml INH RQ6 [facility] Last Admin: 03/28/18 07:45 Dose: 3 ml Aspirin (Aspirin Supp) 300 mg FL DAILY [facility] Last Admin: 03/25/18 11:00 Dose: 300 mg Heparin Sodium (Porcine) (Heparin) 5,000 units SC Q8 [facility] Last Admin: 03/28/18 13:53 Dose: 5,000 units Dextrose/Sodium Chloride (Dextrose 5%/0.45% Ns 1000 Ml) 1,000 mls @ 50 mls/hr IV .Q20H [facility] Last Admin: 03/28/18 07:25 Dose: Not Given Cefepime HCl (Maxipime Iv 2 Gm Premix) 2 gm in 100 mls @ 100 mls/hr IVPB Q12H [facility] ; Protocol Stop: 03/31/18 18:01 Last Admin: 03/28/18 05:49 Dose: 100 mls/hr Vancomycin HCl 1 gm/ Sodium (Chloride) 250 mls @ 166.7 mls/hr IVPB Q24H [facility]; Protocol Last Admin: 03/27/18 21:50 Dose: 166.7 mls/hr Insulin Aspart (Novolog) 0 unit SC Q6 [facility]; Protocol Last Admin: 03/28/18 12:36 Dose: 4 units Lorazepam (Ativan) 1 mg IVP Q4H PRN PRN Reason: Restlessness Last Admin: 03/28/18 13:50 Dose: 1 mg Methylprednisolone (Solu-Medrol) 40 mg IVP Q12 [facility] Last Admin: 03/28/18 11:00 Dose: 40 mg Metoprolol Tartrate (Lopressor) 5 mg IVP Q6 PRN PRN Reason: elevated blood pressure Last Admin: 03/26/18 18:27 Dose: 5 mg Metoprolol Tartrate (Lopressor) 25 mg PEG BID [facility] Last Admin: 03/28/18 11:00 Dose: 25 mg Oseltamivir Phosphate (Tamiflu Cap) 75 mg PO BID [facility]; Protocol Last Admin: 03/28/18 11:00 Dose: 75 mg Pantoprazole Sodium (Protonix Inj) 40 mg IVP DAILY [facility] Last Admin: 03/28/18 11:00 Dose: 40 mg Rosuvastatin Calcium (Crestor) 10 mg PO HS [facility] Last Admin: 03/27/18 21:48 Dose: 10 mg Vitamin A (Vitamin A & D Oint Ud Foilpak) 1 ea TOP Q6 PRN PRN Reason: Dry mouth Last Admin: 03/28/18 12:37 Dose: 1 ea - Labs Labs: 03/28/18 07:50 03/28/18 07:50 PT 12.9 SECONDS (9.7-12.2) H 03/21/18 04:41 INR 1.2 03/21/18 04:41 APTT 51 SECONDS (21-34) H 03/24/18 06:35 Attending/Attestation - Attestation I have personally seen and examined this patient.: Yes I have fully participated in the care of the patient.: Yes I have reviewed all pertinent clinical information, including history, physical exam and plan: Yes Notes (Text): I agree with the assessment and plan.
--- NOTE | 2018-03-23 21:12 | CP.PCM.PN ---
Subjective - Date & Time of Evaluation Date of Evaluation: 03/23/18 Time of Evaluation: 14:00 - Subjective Subjective: dictated Objective - Vital Signs/Intake and Output Vital Signs (last 24 hours): Temp Pulse Resp BP Pulse Ox 98.6 F 48 L 20 162/83 H 100 03/23/18 20:00 03/23/18 20:00 03/23/18 20:00 03/23/18 20:52 03/23/18 20:00 Intake and Output: 03/23/18 03/24/18 18:59 06:59 Intake Total 1962.5 221.0 Output Total 800 350 Balance 1162.5 -129.0 - Medications Medications: Current Medications Albuterol/Ipratropium (Duoneb 3 Mg/0.5 Mg (3 Ml) Ud) 3 ml INH RQ6 [facility] Last Admin: 03/23/18 19:47 Dose: 3 ml Amiodarone HCl (Cordarone) 200 mg PO BID [facility] Last Admin: 03/23/18 18:37 Dose: 200 mg Aspirin (Aspirin Chewable) 81 mg PO DAILY [facility] Last Admin: 03/23/18 10:46 Dose: 81 mg Clopidogrel Bisulfate (Plavix) 75 mg PO DAILY [facility] Last Admin: 03/23/18 18:37 Dose: 75 mg Heparin Sodium/Sodium Chloride (Heparin 93403 Units/250ml 1/2 Normal Saline) 25,000 units in 250 mls @ 9.036 mls/hr IV .Q24H [facility]; Protocol PRN Reason: ADJUST RATE PER PROTOCOL Last Admin: 03/22/18 23:06 Dose: 12 units/kg/hr, 9.036 mls/hr Propofol (Diprivan) 1,000 mg in 100 mls @ 2.259 mls/hr IV .Q24H [facility]; Protocol PRN Reason: TITRATE PER MD ORDER Last Titration: 03/23/18 08:00 Dose: 0 mcg/kg/min, 0 mls/hr Piperacillin Sod/Tazobactam Sod (Zosyn 2.25 Gm Iv Premix) 2.25 gm in 50 mls @ 100 mls/hr IVPB Q6H [facility]; Protocol Last Admin: 03/23/18 18:53 Dose: 100 mls/hr Sodium Chloride (Sodium Chloride 0.9%) 1,000 mls @ 50 mls/hr IV .Q20H [facility] Last Admin: 03/23/18 18:33 Dose: 50 mls/hr Nitroglycerin/Dextrose (Nitroglycerin 50 Mg/250 Ml D5w) 50 mg in 250 mls @ 1.5 mls/hr IV .Q24H [facility]; Protocol Last Admin: 03/23/18 18:34 Dose: 5 mcg/min, 1.5 mls/hr Insulin Aspart (Novolog) 0 unit SC Q6 [facility]; Protocol Last Admin: 03/23/18 18:34 Dose: 3 units Methylprednisolone (Solu-Medrol) 40 mg IVP Q12 [facility] Last Admin: 03/23/18 10:46 Dose: 40 mg Metoprolol Tartrate (Lopressor) 25 mg PO BID [facility] Last Admin: 03/23/18 18:37 Dose: 25 mg Morphine Sulfate (Morphine) 2 mg IVP Q4 PRN PRN Reason: Sedation Pantoprazole Sodium (Protonix Inj) 40 mg IVP DAILY [facility] Last Admin: 03/23/18 10:46 Dose: 40 mg Rosuvastatin Calcium (Crestor) 10 mg PO HS [facility] - Labs Labs: 03/23/18 06:10 03/23/18 06:10 PT 12.9 SECONDS (9.7-12.2) H 03/21/18 04:41 INR 1.2 03/21/18 04:41 APTT 50 SECONDS (21-34) H 03/23/18 06:10
[2018-03-24] MEDS: (Novolog) Insulin Aspart, Recombinant 100 u/ml 10 ml vial SC SCH ×4 (00:11→17:38)
[2018-03-24] MEDS: Piperacill/Tazo 2.25gm in Dex 2.25 GM/50 ML BAG IVPB SCH ×4 (00:36→18:10)
[2018-03-24] MEDS: Heparin25000 units/250ml 1/2NS 25,000 UNITS/250 ML BAG IV PRN (00:37)
--- NOTE | 2018-03-24 01:57 | PN ---
DATE: 03/23/2018 INFECTIOUS DISEASE FOLLOWUP SUBJECTIVE: The patient remains intubated. He is not sedated. His son is at the bedside, and he said his father has been now off the sedation but still he is drowsy. PHYSICAL EXAMINATION: VITAL SIGNS: T-max was 99, heart rate was 69, blood pressure 162/83, respirations are 18. HEENT: Head is atraumatic, normocephalic. NECK: Supple. LUNGS: Clear. Decreased breath sounds bilaterally. HEART: S1, S2 are regular. ABDOMEN: Soft, nontender. No guarding. No rigidity present. EXTREMITIES: No edema, clubbing, or cyanosis. He is status post cardiac arrest. He is intubated. He has history of pulmonary fibrosis. LABORATORY DATA: Labs are noted. Labs show white count is 15, hemoglobin 10.2, hematocrit 31.7, platelet count is 124. Neutrophils are 90, bands of 5. His CO2 remains 35, pO2 is 176 so that is better. Sodium is 146, it is high; chloride is 121; glucose is 222. Micro marsh, there were cultures done. Blood culture x2 are negative and ____ normal. Urine culture is negative. MRSA is negative. So at this time, the patient is on Zosyn. He is also on steroids. He is on heparin drip, metoprolol, morphine, nitroglycerin, pantoprazole, Zosyn, Diprivan, Crestor. We will continue these, and we will follow. He is still on 40 every 12 hours which may be giving the white count. Sputum did not grow anything, and we will follow. Rizwana Reddy MD
[2018-03-24] MEDS: Sodium Chloride 0.9% 1,000 ML IV SCH (02:38)
[2018-03-24] MEDS: Albuterol-Ipratrop 3 mg / 0.5 (3 ml) UD INH SCH ×4 (02:52→20:26)
[2018-03-24 06:29] LABS: ABG ALLEN TEST POS; ARTERIAL BLOOD GAS HCO3 27.7 mmol/L (21-28); ARTERIAL BLOOD GAS HEMOGLOBIN 10.4 g/dL (11.7-17.4); ARTERIAL BLOOD GAS O2 SAT 99.8 % (95-98); ARTERIAL BLOOD GAS PCO2 40 mm/Hg (35-45); ARTERIAL BLOOD GAS PH 7.45 (7.35-7.45); ARTERIAL BLOOD GAS PO2 195 mm/Hg (80-100)
[2018-03-24 06:40] LABS: BASO % 0.2 % (0.0-2.0); HEMOGLOBIN 10.6 g/dL (12.0-18.0); LYMPH # 0.7 K/uL (1.0-4.3); LYMPH % 4.5 % (20.0-40.0); MEAN CELL VOLUME 89.9 fL (80.0-94.0); MEAN CORPUSCULAR HEMOGLOBIN 28.8 pg (27.0-31.0); MEAN PLATELET VOLUME 10.4 fL (7.2-11.7); MONO # 0.8 K/uL (0.0-0.8); MONO % 5.6 % (0.0-10.0); NEUT # 13.3 K/uL (1.8-7.0); NEUT % 89.7 % (50.0-75.0); NRBC % 0.1 % (0.0-2.0); PLATELET COUNT 139 K/uL (130-400); RBC 3.68 Mil/uL (4.40-5.90); RED CELL DISTRIBUTION WIDTH 14.3 % (11.5-14.5); WHITE BLOOD COUNT 14.8 K/uL (4.8-10.8)
[2018-03-24 06:56] LABS: HDL CHOLESTEROL 32 mg/dL (30-70)
[2018-03-24 06:59] LABS: ALB/GLOB RATIO 1.1 (1.0-2.1); ALBUMIN 3.4 g/dL (3.5-5.0); ALT/SGPT 51 U/L (21-72); AST/SGOT 36 U/L (17-59); BLOOD UREA NITROGEN 53 mg/dL (9-20); CALCIUM 8.6 mg/dl (8.6-10.4); GFR NON-AFRICAN AMERICAN 51
[2018-03-24 07:07] LABS: LDL CHOLESTEROL 145 mg/dL (0-129)
[2018-03-24] MEDS ORDERED: Verapamil 2 ML ONE (07:48)
[2018-03-24] MEDS ORDERED: Iodixanol 320 MG/ML 200 ML BOTTLE IV ONE (07:50)
[2018-03-24] MEDS ORDERED: Rocuronium 10 mg/ml (5 ml) ONE (07:52)
[2018-03-24 08:17] LABS: LYMPHOCYTE 4 % (20-40); MONOCYTE 2 % (0-10); NEUTROPHIL 94 % (50-75); TOTAL CELLS COUNTED 100
[2018-03-24 08:18] LABS: PLATELET ESTIMATE NORMAL (NORMAL)
--- NOTE | 2018-03-24 08:37 | CP.CCUPN ---
<Kae Wall - Last Filed: 03/24/18 10:23> CCU Subjective - Physician Review Subjective (Free Text): Critical Care Progress Note for Dr. Salazar's service Patient seen and examined at bedside. Limited ROS as patient is intubated. 03/24/18 10:23 CCU Objective - Vital Signs / Intake & Output Vital Signs (Last 4 hours): Vital Signs Pulse Resp BP Pulse Ox 03/24/18 06:00 63 19 100 03/24/18 05:53 152/90 H 03/24/18 05:00 55 L 20 03/24/18 04:53 148/91 H Intake and Output (Last 8hrs): Intake & Output 03/23/18 03/24/18 03/24/18 22:59 06:59 14:59 Intake Total 1081.0 1258 Output Total 1300 2790 Balance -219.0 -1532 Weight 164 lb Intake: IV 3 250 Intake, IV Amount 678.0 558 Left Hand 236 450 Left Proximal Port Hand 36 81 Right Antecubital 400 Right Hand 6.0 27 Tube Feeding 400 450 Output: Urine 1300 2790 Urethral (Melvin) 1300 2790 Other: # Bowel Movements 1 1 - Physical Exam Head: Positive for: Atraumatic, Normocephalic Pupils: Positive for: PERRL Extroacular Muscles: Positive for: EOMI Mouth: Positive for: Dry, Other (ETT tube in place) Respiratory/Chest: Positive for: Decreased Breath Sounds. Negative for: Respiratory Distress, Accessory Muscle Use Cardiovascular: Positive for: Normal S1, S2, Bradycardic Abdomen: Positive for: Normal Bowel Sounds. Negative for: Tenderness, Distention Upper Extremity: Positive for: Normal Inspection. Negative for: Cyanosis, Edema Lower Extremity: Positive for: Normal Inspection. Negative for: Edema Neurological: Negative for: GCS=15 Skin: Positive for: Dry, Normal Color Psychiatric: Positive for: Other (? insight). Negative for: Oriented x 3 - Medications Active Medications: Active Medications Generic Name Dose Route Start Last Admin Trade Name Freq PRN Reason Stop Dose Admin Albuterol/Ipratropium 3 ml 03/20/18 14:00 03/24/18 02:52 Duoneb 3 Mg/0.5 Mg (3 Ml) Ud INH 3 ml RQ6 DOUG Administration Amiodarone HCl 200 mg 03/20/18 19:15 03/23/18 18:37 Cordarone PO 200 mg BID DOUG Administration Aspirin 81 mg 03/20/18 10:00 03/23/18 10:46 Aspirin Chewable PO 81 mg DAILY DOUG Administration Clopidogrel Bisulfate 75 mg 03/23/18 16:45 03/23/18 18:37 Plavix PO 75 mg DAILY DOUG Administration Heparin Sodium/Sodium Chloride 25,000 units in 250 mls @ 9.036 mls/hr 03/20/18 15:00 03/24/18 00:37 Heparin 28324 Units/250ml 1/2 Normal Saline IV 12 units/kg/hr .Q24H PRN 9.036 mls/hr ADJUST RATE PER PROTOCOL Administration Protocol 12 UNITS/KG/HR Propofol 1,000 mg in 100 mls @ 2.259 mls/hr 03/20/18 21:02 03/23/18 08:00 Diprivan IV 0 mcg/kg/min .Q24H PRN 0 mls/hr TITRATE PER MD ORDER Titration Protocol 5 MCG/KG/MIN Piperacillin Sod/Tazobactam Sod 2.25 gm in 50 mls @ 100 mls/hr 03/21/18 19:00 03/24/18 06:04 Zosyn 2.25 Gm Iv Premix IVPB 100 mls/hr Q6H DOUG Administration Protocol Sodium Chloride 1,000 mls @ 50 mls/hr 03/22/18 09:11 03/24/18 02:38 Sodium Chloride 0.9% IV Not Given .Q20H DOUG Nitroglycerin/Dextrose 50 mg in 250 mls @ 1.5 mls/hr 03/23/18 16:45 03/23/18 22:00 Nitroglycerin 50 Mg/250 Ml D5w IV 10 mcg/min .Q24H DOUG 3 mls/hr Titration Protocol 5 MCG/MIN Insulin Aspart 0 unit 03/19/18 20:00 03/24/18 05:58 Novolog SC 4 units Q6 DOUG Administration Protocol Methylprednisolone 40 mg 03/22/18 10:00 03/23/18 21:23 Solu-Medrol IVP 40 mg Q12 DOUG Administration Morphine Sulfate 2 mg 03/22/18 15:48 Morphine IVP Q4 PRN Sedation Pantoprazole Sodium 40 mg 03/20/18 10:00 03/23/18 10:46 Protonix Inj IVP 40 mg DAILY DOUG Administration Rosuvastatin Calcium 10 mg 03/23/18 22:00 03/23/18 21:23 Crestor PO 10 mg HS DOUG Administration - Patient Studies Lab Studies: Microbiology Studies 03/19/18 20:30 Blood Culture - Preliminary Blood NO GROWTH AFTER 4 DAYS 03/19/18 21:10 Blood Culture - Preliminary Blood NO GROWTH AFTER 4 DAYS Lab Studies 03/24/18 03/24/18 03/24/18 Range/Units 06:35 06:35 06:35 WBC (4.8-10.8) K/uL RBC (4.40-5.90) Mil/uL Hgb (12.0-18.0) g/dL Hct (35.0-51.0) % MCV (80.0-94.0) fL MCH (27.0-31.0) pg MCHC (33.0-37.0) g/dL RDW (11.5-14.5) % Plt Count (130-400) K/uL MPV (7.2-11.7) fL Neut % (Auto) (50.0-75.0) % Lymph % (Auto) (20.0-40.0) % Hancock % (Auto) (0.0-10.0) % Eos % (Auto) (0.0-4.0) % Baso % (Auto) (0.0-2.0) % Neut # (Auto) (1.8-7.0) K/uL Lymph # (Auto) (1.0-4.3) K/uL Hancock # (Auto) (0.0-0.8) K/uL Eos # (Auto) (0.0-0.7) K/uL Baso # (Auto) (0.0-0.2) K/uL Neutrophils % (Manual) (50-75) % Band Neutrophils % (0-2) % Lymphocytes % (Manual) (20-40) % Monocytes % (Manual) (0-10) % Platelet Estimate (NORMAL) RBC Morphology Polychromasia Hypochromasia (manual) Anisocytosis (manual) APTT 51 H (21-34) SECONDS Puncture Site pCO2 (35-45) mm/Hg pO2 (80-100) mm/Hg HCO3 (21-28) mmol/L ABG pH (7.35-7.45) ABG Total CO2 (22-28) mmol/L ABG O2 Saturation (95-98) % ABG Base Excess (-2.0-3.0) mmol/L ABG Hemoglobin (11.7-17.4) g/dL ABG Carboxyhemoglobin (0.5-1.5) % POC ABG HHb (Measured) (0.0-5.0) % ABG Methemoglobin (0.0-3.0) % Bran Test A-a O2 Difference mm/Hg Respiratory Index Hgb O2 Saturation (95.0-98.0) % Vent Mode Mechanical Rate FiO2 % Tidal Volume PEEP Sodium 144 (132-148) mmol/L Potassium 4.7 (3.6-5.2) mmol/L Chloride 111 H (98-107) mmol/L Carbon Dioxide 27 (22-30) mmol/L Anion Gap 11 (10-20) BUN 53 H (9-20) mg/dL Creatinine 1.4 (0.8-1.5) mg/dL Est GFR ( Amer) > 60 Est GFR (Non-Af Amer) 51 POC Glucose (mg/dL) (65-110) mg/dL Random Glucose 244 H (75-110) mg/dL Calcium 8.6 (8.6-10.4) mg/dl Total Bilirubin 0.8 (0.2-1.3) mg/dL AST 36 (17-59) U/L ALT 51 (21-72) U/L Alkaline Phosphatase 91 (38-126) U/L Total Protein 6.4 (6.3-8.3) g/dL Albumin 3.4 L (3.5-5.0) g/dL Globulin 3.0 (2.2-3.9) gm/dL Albumin/Globulin Ratio 1.1 (1.0-2.1) Triglycerides 115 D (0-149) mg/dL Cholesterol 181 (0-199) mg/dL LDL Cholesterol Direct 145 H (0-129) mg/dL HDL Cholesterol 32 (30-70) mg/dL Ur Strep pneumoniae Ag (Not Detected) 03/24/18 03/24/18 03/24/18 Range/Units 06:35 05:38 05:18 WBC 14.8 H (4.8-10.8) K/uL RBC 3.68 L (4.40-5.90) Mil/uL Hgb 10.6 L (12.0-18.0) g/dL Hct 33.1 L (35.0-51.0) % MCV 89.9 (80.0-94.0) fL MCH 28.8 (27.0-31.0) pg MCHC 32.0 L (33.0-37.0) g/dL RDW 14.3 (11.5-14.5) % Plt Count 139 (130-400) K/uL MPV 10.4 (7.2-11.7) fL Neut % (Auto) 89.7 H (50.0-75.0) % Lymph % (Auto) 4.5 L (20.0-40.0) % Hancock % (Auto) 5.6 (0.0-10.0) % Eos % (Auto) 0.0 (0.0-4.0) % Baso % (Auto) 0.2 (0.0-2.0) % Neut # (Auto) 13.3 H (1.8-7.0) K/uL Lymph # (Auto) 0.7 L (1.0-4.3) K/uL Hancock # (Auto) 0.8 (0.0-0.8) K/uL Eos # (Auto) 0.0 (0.0-0.7) K/uL Baso # (Auto) 0.0 (0.0-0.2) K/uL Neutrophils % (Manual) 94 H (50-75) % Band Neutrophils % (0-2) % Lymphocytes % (Manual) 4 L (20-40) % Monocytes % (Manual) 2 (0-10) % Platelet Estimate Normal (NORMAL) RBC Morphology Normal Polychromasia Hypochromasia (manual) Anisocytosis (manual) APTT (21-34) SECONDS Puncture Site R rad pCO2 40 (35-45) mm/Hg pO2 195 H (80-100) mm/Hg HCO3 27.7 (21-28) mmol/L ABG pH 7.45 (7.35-7.45) ABG Total CO2 29.0 H (22-28) mmol/L ABG O2 Saturation 99.8 H (95-98) % ABG Base Excess 3.5 H (-2.0-3.0) mmol/L ABG Hemoglobin 10.4 L (11.7-17.4) g/dL ABG Carboxyhemoglobin 1.6 H (0.5-1.5) % POC ABG HHb (Measured) 0.2 (0.0-5.0) % ABG Methemoglobin 1.3 (0.0-3.0) % Bran Test Pos A-a O2 Difference 40.0 mm/Hg Respiratory Index 0.2 Hgb O2 Saturation 96.9 (95.0-98.0) % Vent Mode Prvc Mechanical Rate 20 FiO2 40.0 % Tidal Volume 500 PEEP 5 Sodium (132-148) mmol/L Potassium (3.6-5.2) mmol/L Chloride (98-107) mmol/L Carbon Dioxide (22-30) mmol/L Anion Gap (10-20) BUN (9-20) mg/dL Creatinine (0.8-1.5) mg/dL Est GFR ( Amer) Est GFR (Non-Af Amer) POC Glucose (mg/dL) 257 H (65-110) mg/dL Random Glucose (75-110) mg/dL Calcium (8.6-10.4) mg/dl Total Bilirubin (0.2-1.3) mg/dL AST (17-59) U/L ALT (21-72) U/L Alkaline Phosphatase (38-126) U/L Total Protein (6.3-8.3) g/dL Albumin (3.5-5.0) g/dL Globulin (2.2-3.9) gm/dL Albumin/Globulin Ratio (1.0-2.1) Triglycerides (0-149) mg/dL Cholesterol (0-199) mg/dL LDL Cholesterol Direct (0-129) mg/dL HDL Cholesterol (30-70) mg/dL Ur Strep pneumoniae Ag (Not Detected) 03/23/18 03/23/18 03/23/18 Range/Units 23:40 17:33 11:17 WBC (4.8-10.8) K/uL RBC (4.40-5.90) Mil/uL Hgb (12.0-18.0) g/dL Hct (35.0-51.0) % MCV (80.0-94.0) fL MCH (27.0-31.0) pg MCHC (33.0-37.0) g/dL RDW (11.5-14.5) % Plt Count (130-400) K/uL MPV (7.2-11.7) fL Neut % (Auto) (50.0-75.0) % Lymph % (Auto) (20.0-40.0) % Hancock % (Auto) (0.0-10.0) % Eos % (Auto) (0.0-4.0) % Baso % (Auto) (0.0-2.0) % Neut # (Auto) (1.8-7.0) K/uL Lymph # (Auto) (1.0-4.3) K/uL Hancock # (Auto) (0.0-0.8) K/uL Eos # (Auto) (0.0-0.7) K/uL Baso # (Auto) (0.0-0.2) K/uL Neutrophils % (Manual) (50-75) % Band Neutrophils % (0-2) % Lymphocytes % (Manual) (20-40) % Monocytes % (Manual) (0-10) % Platelet Estimate (NORMAL) RBC Morphology Polychromasia Hypochromasia (manual) Anisocytosis (manual) APTT (21-34) SECONDS Puncture Site pCO2 (35-45) mm/Hg pO2 (80-100) mm/Hg HCO3 (21-28) mmol/L ABG pH (7.35-7.45) ABG Total CO2 (22-28) mmol/L ABG O2 Saturation (95-98) % ABG Base Excess (-2.0-3.0) mmol/L ABG Hemoglobin (11.7-17.4) g/dL ABG Carboxyhemoglobin (0.5-1.5) % POC ABG HHb (Measured) (0.0-5.0) % ABG Methemoglobin (0.0-3.0) % Bran Test A-a O2 Difference mm/Hg Respiratory Index Hgb O2 Saturation (95.0-98.0) % Vent Mode Mechanical Rate FiO2 % Tidal Volume PEEP Sodium (132-148) mmol/L Potassium (3.6-5.2) mmol/L Chloride (98-107) mmol/L Carbon Dioxide (22-30) mmol/L Anion Gap (10-20) BUN (9-20) mg/dL Creatinine (0.8-1.5) mg/dL Est GFR ( Amer) Est GFR (Non-Af Amer) POC Glucose (mg/dL) 236 H 286 H 245 H (65-110) mg/dL Random Glucose (75-110) mg/dL Calcium (8.6-10.4) mg/dl Total Bilirubin (0.2-1.3) mg/dL AST (17-59) U/L ALT (21-72) U/L Alkaline Phosphatase (38-126) U/L Total Protein (6.3-8.3) g/dL Albumin (3.5-5.0) g/dL Globulin (2.2-3.9) gm/dL Albumin/Globulin Ratio (1.0-2.1) Triglycerides (0-149) mg/dL Cholesterol (0-199) mg/dL LDL Cholesterol Direct (0-129) mg/dL HDL Cholesterol (30-70) mg/dL Ur Strep pneumoniae Ag (Not Detected) 03/23/18 03/20/18 Range/Units 06:10 10:18 WBC (4.8-10.8) K/uL RBC (4.40-5.90) Mil/uL Hgb (12.0-18.0) g/dL Hct (35.0-51.0) % MCV (80.0-94.0) fL MCH (27.0-31.0) pg MCHC (33.0-37.0) g/dL RDW (11.5-14.5) % Plt Count (130-400) K/uL MPV (7.2-11.7) fL Neut % (Auto) (50.0-75.0) % Lymph % (Auto) (20.0-40.0) % Hancock % (Auto) (0.0-10.0) % Eos % (Auto) (0.0-4.0) % Baso % (Auto) (0.0-2.0) % Neut # (Auto) (1.8-7.0) K/uL Lymph # (Auto) (1.0-4.3) K/uL Hancock # (Auto) (0.0-0.8) K/uL Eos # (Auto) (0.0-0.7) K/uL Baso # (Auto) (0.0-0.2) K/uL Neutrophils % (Manual) 90 H (50-75) % Band Neutrophils % 5 H (0-2) % Lymphocytes % (Manual) 2 L (20-40) % Monocytes % (Manual) 3 (0-10) % Platelet Estimate Slightly decreased L (NORMAL) RBC Morphology Polychromasia Slight Hypochromasia (manual) Slight Anisocytosis (manual) Slight APTT (21-34) SECONDS Puncture Site pCO2 (35-45) mm/Hg pO2 (80-100) mm/Hg HCO3 (21-28) mmol/L ABG pH (7.35-7.45) ABG Total CO2 (22-28) mmol/L ABG O2 Saturation (95-98) % ABG Base Excess (-2.0-3.0) mmol/L ABG Hemoglobin (11.7-17.4) g/dL ABG Carboxyhemoglobin (0.5-1.5) % POC ABG HHb (Measured) (0.0-5.0) % ABG Methemoglobin (0.0-3.0) % Bran Test A-a O2 Difference mm/Hg Respiratory Index Hgb O2 Saturation (95.0-98.0) % Vent Mode Mechanical Rate FiO2 % Tidal Volume PEEP Sodium (132-148) mmol/L Potassium (3.6-5.2) mmol/L Chloride (98-107) mmol/L Carbon Dioxide (22-30) mmol/L Anion Gap (10-20) BUN (9-20) mg/dL Creatinine (0.8-1.5) mg/dL Est GFR ( Amer) Est GFR (Non-Af Amer) POC Glucose (mg/dL) (65-110) mg/dL Random Glucose (75-110) mg/dL Calcium (8.6-10.4) mg/dl Total Bilirubin (0.2-1.3) mg/dL AST (17-59) U/L ALT (21-72) U/L Alkaline Phosphatase (38-126) U/L Total Protein (6.3-8.3) g/dL Albumin (3.5-5.0) g/dL Globulin (2.2-3.9) gm/dL Albumin/Globulin Ratio (1.0-2.1) Triglycerides (0-149) mg/dL Cholesterol (0-199) mg/dL LDL Cholesterol Direct (0-129) mg/dL HDL Cholesterol (30-70) mg/dL Ur Strep pneumoniae Ag Not detected (Not Detected) Laboratory Results - last 24 hr 03/20/18 03/23/18 03/23/18 10:18 06:10 11:17 WBC RBC Hgb Hct MCV MCH MCHC RDW Plt Count MPV Neut % (Auto) Lymph % (Auto) Hancock % (Auto) Eos % (Auto) Baso % (Auto) Neut # (Auto) Lymph # (Auto) Hancock # (Auto) Eos # (Auto) Baso # (Auto) Neutrophils % (Manual) 90 H Band Neutrophils % 5 H Lymphocytes % (Manual) 2 L Monocytes % (Manual) 3 Platelet Estimate Slightly decreased L RBC Morphology Polychromasia Slight Hypochromasia (manual) Slight Anisocytosis (manual) Slight APTT Puncture Site pCO2 pO2 HCO3 ABG pH ABG Total CO2 ABG O2 Saturation ABG Base Excess ABG Hemoglobin ABG Carboxyhemoglobin POC ABG HHb (Measured) ABG Methemoglobin Bran Test A-a O2 Difference Respiratory Index Hgb O2 Saturation Vent Mode Mechanical Rate FiO2 Tidal Volume PEEP Sodium Potassium Chloride Carbon Dioxide Anion Gap BUN Creatinine Est GFR ( Amer) Est GFR (Non-Af Amer) POC Glucose (mg/dL) 245 H Random Glucose Calcium Total Bilirubin AST ALT Alkaline Phosphatase Total Protein Albumin Globulin Albumin/Globulin Ratio Triglycerides Cholesterol LDL Cholesterol Direct HDL Cholesterol Ur Strep pneumoniae Ag Not detected 03/23/18 03/23/18 03/24/18 17:33 23:40 05:18 WBC RBC Hgb Hct MCV MCH MCHC RDW Plt Count MPV Neut % (Auto) Lymph % (Auto) Hancock % (Auto) Eos % (Auto) Baso % (Auto) Neut # (Auto) Lymph # (Auto) Hancock # (Auto) Eos # (Auto) Baso # (Auto) Neutrophils % (Manual) Band Neutrophils % Lymphocytes % (Manual) Monocytes % (Manual) Platelet Estimate RBC Morphology Polychromasia Hypochromasia (manual) Anisocytosis (manual) APTT Puncture Site R rad pCO2 40 pO2 195 H HCO3 27.7 ABG pH 7.45 ABG Total CO2 29.0 H ABG O2 Saturation 99.8 H ABG Base Excess 3.5 H ABG Hemoglobin 10.4 L ABG Carboxyhemoglobin 1.6 H POC ABG HHb (Measured) 0.2 ABG Methemoglobin 1.3 Bran Test Pos A-a O2 Difference 40.0 Respiratory Index 0.2 Hgb O2 Saturation 96.9 Vent Mode Prvc Mechanical Rate 20 FiO2 40.0 Tidal Volume 500 PEEP 5 Sodium Potassium Chloride Carbon Dioxide Anion Gap BUN Creatinine Est GFR ( Amer) Est GFR (Non-Af Amer) POC Glucose (mg/dL) 286 H 236 H Random Glucose Calcium Total Bilirubin AST ALT Alkaline Phosphatase Total Protein Albumin Globulin Albumin/Globulin Ratio Triglycerides Cholesterol LDL Cholesterol Direct HDL Cholesterol Ur Strep pneumoniae Ag 03/24/18 03/24/18 03/24/18 05:38 06:35 06:35 WBC 14.8 H RBC 3.68 L Hgb 10.6 L Hct 33.1 L MCV 89.9 MCH 28.8 MCHC 32.0 L RDW 14.3 Plt Count 139 MPV 10.4 Neut % (Auto) 89.7 H Lymph % (Auto) 4.5 L Hancock % (Auto) 5.6 Eos % (Auto) 0.0 Baso % (Auto) 0.2 Neut # (Auto) 13.3 H Lymph # (Auto) 0.7 L Hancock # (Auto) 0.8 Eos # (Auto) 0.0 Baso # (Auto) 0.0 Neutrophils % (Manual) 94 H Band Neutrophils % Lymphocytes % (Manual) 4 L Monocytes % (Manual) 2 Platelet Estimate Normal RBC Morphology Normal Polychromasia Hypochromasia (manual) Anisocytosis (manual) APTT Puncture Site pCO2 pO2 HCO3 ABG pH ABG Total CO2 ABG O2 Saturation ABG Base Excess ABG Hemoglobin ABG Carboxyhemoglobin POC ABG HHb (Measured) ABG Methemoglobin Bran Test A-a O2 Difference Respiratory Index Hgb O2 Saturation Vent Mode Mechanical Rate FiO2 Tidal Volume PEEP Sodium 144 Potassium 4.7 Chloride 111 H Carbon Dioxide 27 Anion Gap 11 BUN 53 H Creatinine 1.4 Est GFR ( Amer) > 60 Est GFR (Non-Af Amer) 51 POC Glucose (mg/dL) 257 H Random Glucose 244 H Calcium 8.6 Total Bilirubin 0.8 AST 36 ALT 51 Alkaline Phosphatase 91 Total Protein 6.4 Albumin 3.4 L Globulin 3.0 Albumin/Globulin Ratio 1.1 Triglycerides Cholesterol LDL Cholesterol Direct HDL Cholesterol Ur Strep pneumoniae Ag 03/24/18 03/24/18 06:35 06:35 WBC RBC Hgb Hct MCV MCH MCHC RDW Plt Count MPV Neut % (Auto) Lymph % (Auto) Hancock % (Auto) Eos % (Auto) Baso % (Auto) Neut # (Auto) Lymph # (Auto) Hancock # (Auto) Eos # (Auto) Baso # (Auto) Neutrophils % (Manual) Band Neutrophils % Lymphocytes % (Manual) Monocytes % (Manual) Platelet Estimate RBC Morphology Polychromasia Hypochromasia (manual) Anisocytosis (manual) APTT 51 H Puncture Site pCO2 pO2 HCO3 ABG pH ABG Total CO2 ABG O2 Saturation ABG Base Excess ABG Hemoglobin ABG Carboxyhemoglobin POC ABG HHb (Measured) ABG Methemoglobin Bran Test A-a O2 Difference Respiratory Index Hgb O2 Saturation Vent Mode Mechanical Rate FiO2 Tidal Volume PEEP Sodium Potassium Chloride Carbon Dioxide Anion Gap BUN Creatinine Est GFR ( Amer) Est GFR (Non-Af Amer) POC Glucose (mg/dL) Random Glucose Calcium Total Bilirubin AST ALT Alkaline Phosphatase Total Protein Albumin Globulin Albumin/Globulin Ratio Triglycerides 115 D Cholesterol 181 LDL Cholesterol Direct 145 H HDL Cholesterol 32 Ur Strep pneumoniae Ag Radiology Impressions: Radiology Impressions Chest X-Ray 03/23/18 06:00 Impression: Lines and tubes in stable position. Biapical pleural thickening with upper lobe granulomatous changes. Moderate to severe venous congestion. Patchy increased markings at the left lung base with small left pleural effusion. Cardiomegaly. Chest CT 03/23/18 10:08 Impression: Examination is severely limited due to patient respiratory, motion, and streak artifact. Centrilobular emphysema with component of pulmonary fibrosis and pulmonary venous congestion. Limited visualization of the noncontrast upper abdomen: Motion artifact favored over pancreatic edema however recommend correlation with amylase and lipase. Heterogeneous appearance of the hepatic parenchyma also suboptimally visualized due to artifact; unremarkable appearance on CT of the chest performed 03/19/18. Small hiatal hernia. Ribs X-Ray 03/23/18 15:00 IMPRESSION: Mildly displaced left 3rd and 5th rib fracture deformities. Coarse calcification, left lower lobe and evidence of calcified granulomas more medially in the left lower lobe; not well-visualized on CT of the chest performed the same day due to motion. Cardiomegaly. Endotracheal tube. Nasogastric tube. Fingerstick Blood Sugar Results: 203 Review of Systems - Review of Systems Systems not reviewed;Unavailable: Intubated Critical Care Progress Note - Ventilator Checklist Head of Bed 30 Degrees: Yes Daily Sedation Vacation: Yes Daily Assessment of Readiness to Wean: Yes Daily Spontaneous Breathing Trial: Yes PUD Prophalyxis: Yes DVT Prophylaxis: Yes Oral Care with Chlorhexidine Gluconate {CHG}: Yes - Vent Settings MODE:: CPAP RESP RATE:: 18 FIO2:: 40 PEEP:: 5 PRESSURE SUPPORT:: 10 - Extremities/Vascular Does the Patient have a Melvin Catheter?: Yes Does the Patient need a Melvin Catheter?: Yes Catheter Insertion Criteria: Need for accurate measurement of output in critically ill patient - Restraints Justification for Restraints: High risk for self extubation, High risk for removing IV access - Prophylaxis GI Prophylaxis GI: PPI - Prophylaxis DVT Prophylaxis DVT: Heparin SQ Assessment/Plan - Assessment and Plan (Free Text) Assessment: 67 year old male with PMH of pulmonary fibrosis, DM, HTN, and BPH admitted to ICU s/p cardiac arrest (Vfib/Vtach/NSTEMI). 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 mm R MCA aneurysm; no subarachnoid hemorrhage Pulm Intubated and Cpap trial; plan to attempt extubation maintain spo2>92% Methylprednisolone and Duoneb CTA negative for P.E CV elevated troponins- cardiac cath showed no severe occlusions recommended to have defibrillator prior to d/c; etiology of cardiac arrest likely arrythmia Crestor GI no active issues; Tube feedings held in setting of extubation Insulin as needed; Accuchecks q6h Renal no active issues; Cr stable; no need for fluids Repeat labs in AM ID [id number] renal dose cx all negative elevated white count, trending down; afebrile PRN: Morphine Disposition: cardiac cath showed no blockages; plan to extubate PGY-1 [facility] Managment discussed with Dr. Salazar <Jonathan Salazar S - Last Filed: 03/24/18 16:15> CCU Subjective - Physician Review Critical Care Time Spent (in minutes): 40 CCU Objective - Vital Signs / Intake & Output Vital Signs (Last 4 hours): Vital Signs Pulse Resp BP Pulse Ox 03/24/18 13:00 65 20 99 03/24/18 12:48 63 22 163/99 H 98 03/24/18 12:18 64 22 161/95 H 100 Intake and Output (Last 8hrs): Intake & Output 03/24/18 03/24/18 03/24/18 06:59 14:59 22:59 Intake Total 1258 367.5 Output Total 2790 400 Balance -1532 -32.5 Weight 164 lb Intake: IV 250 50 Intake, IV Amount 558 317.5 Left Hand 450 250 Left Proximal Port Hand 81 54 Right Hand 27 13.5 Tube Feeding 450 Output: Urine 2790 400 Urethral (Melvin) 2790 400 Other: # Bowel Movements 1 - Medications Active Medications: Active Medications Generic Name Dose Route Start Last Admin Trade Name Freq PRN Reason Stop Dose Admin Albuterol/Ipratropium 3 ml 03/20/18 14:00 03/24/18 02:52 Duoneb 3 Mg/0.5 Mg (3 Ml) Ud INH 3 ml RQ6 DOUG Administration Aspirin 81 mg 03/20/18 10:00 03/24/18 10:28 Aspirin Chewable PO 81 mg DAILY DOUG Administration Propofol 1,000 mg in 100 mls @ 2.259 mls/hr 03/20/18 21:02 03/24/18 10:20 Diprivan IV 11.06 mcg/kg/min .Q24H PRN 5 mls/hr TITRATE PER MD ORDER Administration Protocol 5 MCG/KG/MIN Piperacillin Sod/Tazobactam Sod 2.25 gm in 50 mls @ 100 mls/hr 03/21/18 19:00 03/24/18 15:13 Zosyn 2.25 Gm Iv Premix IVPB 100 mls/hr Q6H DOUG Administration Protocol Sodium Chloride 500 mls @ 42.5 mls/hr 03/24/18 12:45 03/24/18 15:12 Sodium Chloride 0.9% IV 42.5 mls/hr .[id number] DOUG Administration Insulin Aspart 0 unit 03/19/18 20:00 03/24/18 14:14 Novolog SC Not Given Q6 DOUG Protocol Methylprednisolone 40 mg 03/22/18 10:00 03/24/18 10:27 Solu-Medrol IVP 40 mg Q12 DOUG Administration Metoprolol Tartrate 12.5 mg 03/24/18 11:15 03/24/18 14:14 Lopressor PO Not Given BID DOUG Morphine Sulfate 2 mg 03/22/18 15:48 Morphine IVP Q4 PRN Sedation Pantoprazole Sodium 40 mg 03/20/18 10:00 03/24/18 10:27 Protonix Inj IVP 40 mg DAILY DOUG Administration Rosuvastatin Calcium 10 mg 03/23/18 22:00 03/23/18 21:23 Crestor PO 10 mg HS DOUG Administration - Patient Studies Lab Studies: Microbiology Studies 03/19/18 20:30 Blood Culture - Preliminary Blood NO GROWTH AFTER 4 DAYS 03/19/18 21:10 Blood Culture - Preliminary Blood NO GROWTH AFTER 4 DAYS Lab Studies 03/24/18 03/24/18 03/24/18 Range/Units 11:28 08:39 06:35 WBC (4.8-10.8) K/uL RBC (4.40-5.90) Mil/uL Hgb (12.0-18.0) g/dL Hct (35.0-51.0) % MCV (80.0-94.0) fL MCH (27.0-31.0) pg MCHC (33.0-37.0) g/dL RDW (11.5-14.5) % Plt Count (130-400) K/uL MPV (7.2-11.7) fL Neut % (Auto) (50.0-75.0) % Lymph % (Auto) (20.0-40.0) % Hancock % (Auto) (0.0-10.0) % Eos % (Auto) (0.0-4.0) % Baso % (Auto) (0.0-2.0) % Neut # (Auto) (1.8-7.0) K/uL Lymph # (Auto) (1.0-4.3) K/uL Hancock # (Auto) (0.0-0.8) K/uL Eos # (Auto) (0.0-0.7) K/uL Baso # (Auto) (0.0-0.2) K/uL Neutrophils % (Manual) (50-75) % Lymphocytes % (Manual) (20-40) % Monocytes % (Manual) (0-10) % Platelet Estimate (NORMAL) RBC Morphology APTT 51 H (21-34) SECONDS Puncture Site pCO2 (35-45) mm/Hg pO2 50 (80-100) mm/Hg HCO3 (21-28) mmol/L ABG pH (7.35-7.45) ABG Total CO2 (22-28) mmol/L ABG O2 Saturation (95-98) % ABG Base Excess (-2.0-3.0) mmol/L ABG Hemoglobin (11.7-17.4) g/dL ABG Carboxyhemoglobin (0.5-1.5) % POC ABG HHb (Measured) (0.0-5.0) % ABG Methemoglobin (0.0-3.0) % Bran Test VBG pH 7.32 (7.32-7.43) VBG pCO2 35 L (40-60) mmHg VBG HCO3 18.8 mmol/L VBG Total CO2 19.1 L (22-28) mmol/L VBG O2 Sat (Calc) 85.7 H (40-65) % VBG Base Excess -7.3 L (0.0-2.0) mmol/L VBG Potassium 2.4 L* (3.6-5.2) mmol/L A-a O2 Difference mm/Hg Respiratory Index Hgb O2 Saturation (95.0-98.0) % Glucose 111 H (75-110) mg/dl Lactate 1.0 (0.7-2.1) mmol/L Vent Mode Mechanical Rate FiO2 % Tidal Volume PEEP Crit Value Called To Jan rosa clinical lab assistant Crit Value Called By Lee sahu bundle breaker Crit Value Read Back Y Blood Gas Notified Time 845 Sodium 153.0 H (132-148) mmol/L Potassium (3.6-5.2) mmol/L Chloride 120.0 H (98-107) mmol/L Carbon Dioxide (22-30) mmol/L Anion Gap (10-20) BUN (9-20) mg/dL Creatinine (0.8-1.5) mg/dL Est GFR ( Amer) Est GFR (Non-Af Amer) POC Glucose (mg/dL) 173 H (65-110) mg/dL Random Glucose (75-110) mg/dL Calcium (8.6-10.4) mg/dl Total Bilirubin (0.2-1.3) mg/dL AST (17-59) U/L ALT (21-72) U/L Alkaline Phosphatase (38-126) U/L Total Protein (6.3-8.3) g/dL Albumin (3.5-5.0) g/dL Globulin (2.2-3.9) gm/dL Albumin/Globulin Ratio (1.0-2.1) Triglycerides (0-149) mg/dL Cholesterol (0-199) mg/dL LDL Cholesterol Direct (0-129) mg/dL HDL Cholesterol (30-70) mg/dL Venous Blood Potassium 2.4 L* (3.6-5.2) mmol/L Ur Strep pneumoniae Ag (Not Detected) 03/24/18 03/24/18 03/24/18 Range/Units 06:35 06:35 06:35 WBC 14.8 H (4.8-10.8) K/uL RBC 3.68 L (4.40-5.90) Mil/uL Hgb 10.6 L (12.0-18.0) g/dL Hct 33.1 L (35.0-51.0) % MCV 89.9 (80.0-94.0) fL MCH 28.8 (27.0-31.0) pg MCHC 32.0 L (33.0-37.0) g/dL RDW 14.3 (11.5-14.5) % Plt Count 139 (130-400) K/uL MPV 10.4 (7.2-11.7) fL Neut % (Auto) 89.7 H (50.0-75.0) % Lymph % (Auto) 4.5 L (20.0-40.0) % Hancock % (Auto) 5.6 (0.0-10.0) % Eos % (Auto) 0.0 (0.0-4.0) % Baso % (Auto) 0.2 (0.0-2.0) % Neut # (Auto) 13.3 H (1.8-7.0) K/uL Lymph # (Auto) 0.7 L (1.0-4.3) K/uL Hancock # (Auto) 0.8 (0.0-0.8) K/uL Eos # (Auto) 0.0 (0.0-0.7) K/uL Baso # (Auto) 0.0 (0.0-0.2) K/uL Neutrophils % (Manual) 94 H (50-75) % Lymphocytes % (Manual) 4 L (20-40) % Monocytes % (Manual) 2 (0-10) % Platelet Estimate Normal (NORMAL) RBC Morphology Normal APTT (21-34) SECONDS Puncture Site pCO2 (35-45) mm/Hg pO2 (80-100) mm/Hg HCO3 (21-28) mmol/L ABG pH (7.35-7.45) ABG Total CO2 (22-28) mmol/L ABG O2 Saturation (95-98) % ABG Base Excess (-2.0-3.0) mmol/L ABG Hemoglobin (11.7-17.4) g/dL ABG Carboxyhemoglobin (0.5-1.5) % POC ABG HHb (Measured) (0.0-5.0) % ABG Methemoglobin (0.0-3.0) % Bran Test VBG pH (7.32-7.43) VBG pCO2 (40-60) mmHg VBG HCO3 mmol/L VBG Total CO2 (22-28) mmol/L VBG O2 Sat (Calc) (40-65) % VBG Base Excess (0.0-2.0) mmol/L VBG Potassium (3.6-5.2) mmol/L A-a O2 Difference mm/Hg Respiratory Index Hgb O2 Saturation (95.0-98.0) % Glucose (75-110) mg/dl Lactate (0.7-2.1) mmol/L Vent Mode Mechanical Rate FiO2 % Tidal Volume PEEP Crit Value Called To Crit Value Called By Crit Value Read Back Blood Gas Notified Time Sodium 144 (132-148) mmol/L Potassium 4.7 (3.6-5.2) mmol/L Chloride 111 H (98-107) mmol/L Carbon Dioxide 27 (22-30) mmol/L Anion Gap 11 (10-20) BUN 53 H (9-20) mg/dL Creatinine 1.4 (0.8-1.5) mg/dL Est GFR ( Amer) > 60 Est GFR (Non-Af Amer) 51 POC Glucose (mg/dL) (65-110) mg/dL Random Glucose 244 H (75-110) mg/dL Calcium 8.6 (8.6-10.4) mg/dl Total Bilirubin 0.8 (0.2-1.3) mg/dL AST 36 (17-59) U/L ALT 51 (21-72) U/L Alkaline Phosphatase 91 (38-126) U/L Total Protein 6.4 (6.3-8.3) g/dL Albumin 3.4 L (3.5-5.0) g/dL Globulin 3.0 (2.2-3.9) gm/dL Albumin/Globulin Ratio 1.1 (1.0-2.1) Triglycerides 115 D (0-149) mg/dL Cholesterol 181 (0-199) mg/dL LDL Cholesterol Direct 145 H (0-129) mg/dL HDL Cholesterol 32 (30-70) mg/dL Venous Blood Potassium (3.6-5.2) mmol/L Ur Strep pneumoniae Ag (Not Detected) 03/24/18 03/24/18 03/23/18 Range/Units 05:38 05:18 23:40 WBC (4.8-10.8) K/uL RBC (4.40-5.90) Mil/uL Hgb (12.0-18.0) g/dL Hct (35.0-51.0) % MCV (80.0-94.0) fL MCH (27.0-31.0) pg MCHC (33.0-37.0) g/dL RDW (11.5-14.5) % Plt Count (130-400) K/uL MPV (7.2-11.7) fL Neut % (Auto) (50.0-75.0) % Lymph % (Auto) (20.0-40.0) % Hancock % (Auto) (0.0-10.0) % Eos % (Auto) (0.0-4.0) % Baso % (Auto) (0.0-2.0) % Neut # (Auto) (1.8-7.0) K/uL Lymph # (Auto) (1.0-4.3) K/uL Hancock # (Auto) (0.0-0.8) K/uL Eos # (Auto) (0.0-0.7) K/uL Baso # (Auto) (0.0-0.2) K/uL Neutrophils % (Manual) (50-75) % Lymphocytes % (Manual) (20-40) % Monocytes % (Manual) (0-10) % Platelet Estimate (NORMAL) RBC Morphology APTT (21-34) SECONDS Puncture Site R rad pCO2 40 (35-45) mm/Hg pO2 195 H (80-100) mm/Hg HCO3 27.7 (21-28) mmol/L ABG pH 7.45 (7.35-7.45) ABG Total CO2 29.0 H (22-28) mmol/L ABG O2 Saturation 99.8 H (95-98) % ABG Base Excess 3.5 H (-2.0-3.0) mmol/L ABG Hemoglobin 10.4 L (11.7-17.4) g/dL ABG Carboxyhemoglobin 1.6 H (0.5-1.5) % POC ABG HHb (Measured) 0.2 (0.0-5.0) % ABG Methemoglobin 1.3 (0.0-3.0) % Bran Test Pos VBG pH (7.32-7.43) VBG pCO2 (40-60) mmHg VBG HCO3 mmol/L VBG Total CO2 (22-28) mmol/L VBG O2 Sat (Calc) (40-65) % VBG Base Excess (0.0-2.0) mmol/L VBG Potassium (3.6-5.2) mmol/L A-a O2 Difference 40.0 mm/Hg Respiratory Index 0.2 Hgb O2 Saturation 96.9 (95.0-98.0) % Glucose (75-110) mg/dl Lactate (0.7-2.1) mmol/L Vent Mode Prvc Mechanical Rate 20 FiO2 40.0 % Tidal Volume 500 PEEP 5 Crit Value Called To Crit Value Called By Crit Value Read Back Blood Gas Notified Time Sodium (132-148) mmol/L Potassium (3.6-5.2) mmol/L Chloride (98-107) mmol/L Carbon Dioxide (22-30) mmol/L Anion Gap (10-20) BUN (9-20) mg/dL Creatinine (0.8-1.5) mg/dL Est GFR ( Amer) Est GFR (Non-Af Amer) POC Glucose (mg/dL) 257 H 236 H (65-110) mg/dL Random Glucose (75-110) mg/dL Calcium (8.6-10.4) mg/dl Total Bilirubin (0.2-1.3) mg/dL AST (17-59) U/L ALT (21-72) U/L Alkaline Phosphatase (38-126) U/L Total Protein (6.3-8.3) g/dL Albumin (3.5-5.0) g/dL Globulin (2.2-3.9) gm/dL Albumin/Globulin Ratio (1.0-2.1) Triglycerides (0-149) mg/dL Cholesterol (0-199) mg/dL LDL Cholesterol Direct (0-129) mg/dL HDL Cholesterol (30-70) mg/dL Venous Blood Potassium (3.6-5.2) mmol/L Ur Strep pneumoniae Ag (Not Detected) 03/23/18 03/20/18 Range/Units 17:33 10:18 WBC (4.8-10.8) K/uL RBC (4.40-5.90) Mil/uL Hgb (12.0-18.0) g/dL Hct (35.0-51.0) % MCV (80.0-94.0) fL MCH (27.0-31.0) pg MCHC (33.0-37.0) g/dL RDW (11.5-14.5) % Plt Count (130-400) K/uL MPV (7.2-11.7) fL Neut % (Auto) (50.0-75.0) % Lymph % (Auto) (20.0-40.0) % Hancock % (Auto) (0.0-10.0) % Eos % (Auto) (0.0-4.0) % Baso % (Auto) (0.0-2.0) % Neut # (Auto) (1.8-7.0) K/uL Lymph # (Auto) (1.0-4.3) K/uL Hancock # (Auto) (0.0-0.8) K/uL Eos # (Auto) (0.0-0.7) K/uL Baso # (Auto) (0.0-0.2) K/uL Neutrophils % (Manual) (50-75) % Lymphocytes % (Manual) (20-40) % Monocytes % (Manual) (0-10) % Platelet Estimate (NORMAL) RBC Morphology APTT (21-34) SECONDS Puncture Site pCO2 (35-45) mm/Hg pO2 (80-100) mm/Hg HCO3 (21-28) mmol/L ABG pH (7.35-7.45) ABG Total CO2 (22-28) mmol/L ABG O2 Saturation (95-98) % ABG Base Excess (-2.0-3.0) mmol/L ABG Hemoglobin (11.7-17.4) g/dL ABG Carboxyhemoglobin (0.5-1.5) % POC ABG HHb (Measured) (0.0-5.0) % ABG Methemoglobin (0.0-3.0) % Bran Test VBG pH (7.32-7.43) VBG pCO2 (40-60) mmHg VBG HCO3 mmol/L VBG Total CO2 (22-28) mmol/L VBG O2 Sat (Calc) (40-65) % VBG Base Excess (0.0-2.0) mmol/L VBG Potassium (3.6-5.2) mmol/L A-a O2 Difference mm/Hg Respiratory Index Hgb O2 Saturation (95.0-98.0) % Glucose (75-110) mg/dl Lactate (0.7-2.1) mmol/L Vent Mode Mechanical Rate FiO2 % Tidal Volume PEEP Crit Value Called To Crit Value Called By Crit Value Read Back Blood Gas Notified Time Sodium (132-148) mmol/L Potassium (3.6-5.2) mmol/L Chloride (98-107) mmol/L Carbon Dioxide (22-30) mmol/L Anion Gap (10-20) BUN (9-20) mg/dL Creatinine (0.8-1.5) mg/dL Est GFR ( Amer) Est GFR (Non-Af Amer) POC Glucose (mg/dL) 286 H (65-110) mg/dL Random Glucose (75-110) mg/dL Calcium (8.6-10.4) mg/dl Total Bilirubin (0.2-1.3) mg/dL AST (17-59) U/L ALT (21-72) U/L Alkaline Phosphatase (38-126) U/L Total Protein (6.3-8.3) g/dL Albumin (3.5-5.0) g/dL Globulin (2.2-3.9) gm/dL Albumin/Globulin Ratio (1.0-2.1) Triglycerides (0-149) mg/dL Cholesterol (0-199) mg/dL LDL Cholesterol Direct (0-129) mg/dL HDL Cholesterol (30-70) mg/dL Venous Blood Potassium (3.6-5.2) mmol/L Ur Strep pneumoniae Ag Not detected (Not Detected) Laboratory Results - last 24 hr 03/20/18 03/23/18 03/23/18 10:18 17:33 23:40 WBC RBC Hgb Hct MCV MCH MCHC RDW Plt Count MPV Neut % (Auto) Lymph % (Auto) Hancock % (Auto) Eos % (Auto) Baso % (Auto) Neut # (Auto) Lymph # (Auto) Hancock # (Auto) Eos # (Auto) Baso # (Auto) Neutrophils % (Manual) Lymphocytes % (Manual) Monocytes % (Manual) Platelet Estimate RBC Morphology APTT Puncture Site pCO2 pO2 HCO3 ABG pH ABG Total CO2 ABG O2 Saturation ABG Base Excess ABG Hemoglobin ABG Carboxyhemoglobin POC ABG HHb (Measured) ABG Methemoglobin Bran Test VBG pH VBG pCO2 VBG HCO3 VBG Total CO2 VBG O2 Sat (Calc) VBG Base Excess VBG Potassium A-a O2 Difference Respiratory Index Hgb O2 Saturation Glucose Lactate Vent Mode Mechanical Rate FiO2 Tidal Volume PEEP Crit Value Called To Crit Value Called By Crit Value Read Back Blood Gas Notified Time Sodium Potassium Chloride Carbon Dioxide Anion Gap BUN Creatinine Est GFR ( Amer) Est GFR (Non-Af Amer) POC Glucose (mg/dL) 286 H 236 H Random Glucose Calcium Total Bilirubin AST ALT Alkaline Phosphatase Total Protein Albumin Globulin Albumin/Globulin Ratio Triglycerides Cholesterol LDL Cholesterol Direct HDL Cholesterol Venous Blood Potassium Ur Strep pneumoniae Ag Not detected 03/24/18 03/24/18 03/24/18 05:18 05:38 06:35 WBC 14.8 H RBC 3.68 L Hgb 10.6 L Hct 33.1 L MCV 89.9 MCH 28.8 MCHC 32.0 L RDW 14.3 Plt Count 139 MPV 10.4 Neut % (Auto) 89.7 H Lymph % (Auto) 4.5 L Hancock % (Auto) 5.6 Eos % (Auto) 0.0 Baso % (Auto) 0.2 Neut # (Auto) 13.3 H Lymph # (Auto) 0.7 L Hancock # (Auto) 0.8 Eos # (Auto) 0.0 Baso # (Auto) 0.0 Neutrophils % (Manual) 94 H Lymphocytes % (Manual) 4 L Monocytes % (Manual) 2 Platelet Estimate Normal RBC Morphology Normal APTT Puncture Site R rad pCO2 40 pO2 195 H HCO3 27.7 ABG pH 7.45 ABG Total CO2 29.0 H ABG O2 Saturation 99.8 H ABG Base Excess 3.5 H ABG Hemoglobin 10.4 L ABG Carboxyhemoglobin 1.6 H POC ABG HHb (Measured) 0.2 ABG Methemoglobin 1.3 Bran Test Pos VBG pH VBG pCO2 VBG HCO3 VBG Total CO2 VBG O2 Sat (Calc) VBG Base Excess VBG Potassium A-a O2 Difference 40.0 Respiratory Index 0.2 Hgb O2 Saturation 96.9 Glucose Lactate Vent Mode Prvc Mechanical Rate 20 FiO2 40.0 Tidal Volume 500 PEEP 5 Crit Value Called To Crit Value Called By Crit Value Read Back Blood Gas Notified Time Sodium Potassium Chloride Carbon Dioxide Anion Gap BUN Creatinine Est GFR ( Amer) Est GFR (Non-Af Amer) POC Glucose (mg/dL) 257 H Random Glucose Calcium Total Bilirubin AST ALT Alkaline Phosphatase Total Protein Albumin Globulin Albumin/Globulin Ratio Triglycerides Cholesterol LDL Cholesterol Direct HDL Cholesterol Venous Blood Potassium Ur Strep pneumoniae Ag 03/24/18 03/24/18 03/24/18 06:35 06:35 06:35 WBC RBC Hgb Hct MCV MCH MCHC RDW Plt Count MPV Neut % (Auto) Lymph % (Auto) Hancock % (Auto) Eos % (Auto) Baso % (Auto) Neut # (Auto) Lymph # (Auto) Hancock # (Auto) Eos # (Auto) Baso # (Auto) Neutrophils % (Manual) Lymphocytes % (Manual) Monocytes % (Manual) Platelet Estimate RBC Morphology APTT 51 H Puncture Site pCO2 pO2 HCO3 ABG pH ABG Total CO2 ABG O2 Saturation ABG Base Excess ABG Hemoglobin ABG Carboxyhemoglobin POC ABG HHb (Measured) ABG Methemoglobin Bran Test VBG pH VBG pCO2 VBG HCO3 VBG Total CO2 VBG O2 Sat (Calc) VBG Base Excess VBG Potassium A-a O2 Difference Respiratory Index Hgb O2 Saturation Glucose Lactate Vent Mode Mechanical Rate FiO2 Tidal Volume PEEP Crit Value Called To Crit Value Called By Crit Value Read Back Blood Gas Notified Time Sodium 144 Potassium 4.7 Chloride 111 H Carbon Dioxide 27 Anion Gap 11 BUN 53 H Creatinine 1.4 Est GFR ( Amer) > 60 Est GFR (Non-Af Amer) 51 POC Glucose (mg/dL) Random Glucose 244 H Calcium 8.6 Total Bilirubin 0.8 AST 36 ALT 51 Alkaline Phosphatase 91 Total Protein 6.4 Albumin 3.4 L Globulin 3.0 Albumin/Globulin Ratio 1.1 Triglycerides 115 D Cholesterol 181 LDL Cholesterol Direct 145 H HDL Cholesterol 32 Venous Blood Potassium Ur Strep pneumoniae Ag 03/24/18 03/24/18 08:39 11:28 WBC RBC Hgb Hct MCV MCH MCHC RDW Plt Count MPV Neut % (Auto) Lymph % (Auto) Hancock % (Auto) Eos % (Auto) Baso % (Auto) Neut # (Auto) Lymph # (Auto) Hancock # (Auto) Eos # (Auto) Baso # (Auto) Neutrophils % (Manual) Lymphocytes % (Manual) Monocytes % (Manual) Platelet Estimate RBC Morphology APTT Puncture Site pCO2 pO2 50 HCO3 ABG pH ABG Total CO2 ABG O2 Saturation ABG Base Excess ABG Hemoglobin ABG Carboxyhemoglobin POC ABG HHb (Measured) ABG Methemoglobin Bran Test VBG pH 7.32 VBG pCO2 35 L VBG HCO3 18.8 VBG Total CO2 19.1 L VBG O2 Sat (Calc) 85.7 H VBG Base Excess -7.3 L VBG Potassium 2.4 L* A-a O2 Difference Respiratory Index Hgb O2 Saturation Glucose 111 H Lactate 1.0 Vent Mode Mechanical Rate FiO2 Tidal Volume PEEP Crit Value Called To Jan rosa clinical lab assistant Crit Value Called By Lee sahu bundle breaker Crit Value Read Back Y Blood Gas Notified Time 845 Sodium 153.0 H Potassium Chloride 120.0 H Carbon Dioxide Anion Gap BUN Creatinine Est GFR ( Amer) Est GFR (Non-Af Amer) POC Glucose (mg/dL) 173 H Random Glucose Calcium Total Bilirubin AST ALT Alkaline Phosphatase Total Protein Albumin Globulin Albumin/Globulin Ratio Triglycerides Cholesterol LDL Cholesterol Direct HDL Cholesterol Venous Blood Potassium 2.4 L* Ur Strep pneumoniae Ag Radiology Impressions: Radiology Impressions Ribs X-Ray 03/23/18 15:00 IMPRESSION: Mildly displaced left 3rd and 5th rib fracture deformities. Coarse calcification, left lower lobe and evidence of calcified granulomas more medially in the left lower lobe; not well-visualized on CT of the chest performed the same day due to motion. Cardiomegaly. Endotracheal tube. Nasogastric tube. Attending/Attestation - Attestation I have personally seen and examined this patient.: Yes I have fully participated in the care of the patient.: Yes I have reviewed all pertinent clinical information: Yes Notes (Text): 03/24/18 16:13 Patient seen and examined in the intensive care unit. Patient extubated after weaning trial Open eyes to stimuli but does not follow commands Status post cardiac cath Patient is off heparin drip and Plavix Amiodarone discontinued Continue nebulizer treatment and steroids
[2018-03-24 08:44] LABS: VENOUS BLOOD GAS BASE EXCESS -7.3 mmol/L (0.0-2.0); VENOUS BLOOD GAS PCO2 35 mmHg (40-60); VENOUS BLOOD GAS PO2 50 mm/Hg (30-55); VENOUS BLOOD PH 7.32 (7.32-7.43)
--- NOTE | 2018-03-24 09:11 | CP.PCM.PN ---
Subjective - Date & Time of Evaluation Date of Evaluation: 03/24/18 Time of Evaluation: 08:45 - Subjective Subjective: Patient at clinical lab specialist this AM* Objective - Vital Signs/Intake and Output Vital Signs (last 24 hours): Temp Pulse Resp BP Pulse Ox 98 F 63 19 152/90 H 100 03/24/18 04:00 03/24/18 06:00 03/24/18 06:00 03/24/18 05:53 03/24/18 06:00 Intake and Output: 03/24/18 03/24/18 06:59 18:59 Intake Total 1703.0 Output Total 3290 Balance -1587 - Medications Medications: Current Medications Albuterol/Ipratropium (Duoneb 3 Mg/0.5 Mg (3 Ml) Ud) 3 ml INH RQ6 [facility]OU[facility] Last Admin: 03/24/18 02:52 Dose: 3 ml Amiodarone HCl (Cordarone) 200 mg PO BID [facility] Last Admin: 03/23/18 18:37 Dose: 200 mg Aspirin (Aspirin Chewable) 81 mg PO DAILY [facility] Last Admin: 03/23/18 10:46 Dose: 81 mg Clopidogrel Bisulfate (Plavix) 75 mg PO DAILY [facility] Last Admin: 03/23/18 18:37 Dose: 75 mg Heparin Sodium/Sodium Chloride (Heparin 93789 Units/250ml 1/2 Normal Saline) 25,000 units in 250 mls @ 9.036 mls/hr IV .Q24H PRN; Protocol PRN Reason: ADJUST RATE PER PROTOCOL Last Admin: 03/24/18 00:37 Dose: 12 units/kg/hr, 9.036 mls/hr Propofol (Diprivan) 1,000 mg in 100 mls @ 2.259 mls/hr IV .Q24H PRN; Protocol PRN Reason: TITRATE PER MD ORDER Last Titration: 03/23/18 08:00 Dose: 0 mcg/kg/min, 0 mls/hr Piperacillin Sod/Tazobactam Sod (Zosyn 2.25 Gm Iv Premix) 2.25 gm in 50 mls @ 100 mls/hr IVPB Q6H [facility]; Protocol Last Admin: 03/24/18 06:04 Dose: 100 mls/hr Sodium Chloride (Sodium Chloride 0.9%) 1,000 mls @ 50 mls/hr IV .Q20H [facility] Last Admin: 03/24/18 02:38 Dose: Not Given Nitroglycerin/Dextrose (Nitroglycerin 50 Mg/250 Ml D5w) 50 mg in 250 mls @ 1.5 mls/hr IV .Q24H [facility]; Protocol Last Titration: 03/23/18 22:00 Dose: 10 mcg/min, 3 mls/hr Insulin Aspart (Novolog) 0 unit SC Q6 [facility]; Protocol Last Admin: 03/24/18 05:58 Dose: 4 units Methylprednisolone (Solu-Medrol) 40 mg IVP Q12 [facility] Last Admin: 03/23/18 21:23 Dose: 40 mg Morphine Sulfate (Morphine) 2 mg IVP Q4 PRN PRN Reason: Sedation Pantoprazole Sodium (Protonix Inj) 40 mg IVP DAILY [facility] Last Admin: 03/23/18 10:46 Dose: 40 mg Rosuvastatin Calcium (Crestor) 10 mg PO HS [facility] Last Admin: 03/23/18 21:23 Dose: 10 mg - Labs Labs: 03/24/18 06:35 03/24/18 06:35 PT 12.9 SECONDS (9.7-12.2) H 03/21/18 04:41 INR 1.2 03/21/18 04:41 APTT 51 SECONDS (21-34) H 03/24/18 06:35
--- NOTE | 2018-03-24 09:22 | CP.PCM.PN ---
Subjective - Date & Time of Evaluation Date of Evaluation: 03/24/18 Time of Evaluation: 08:00 - Subjective Subjective: Seen and examined Intubated, moves all extremities Objective - Vital Signs/Intake and Output Vital Signs (last 24 hours): Temp Pulse Resp BP Pulse Ox 98 F 63 19 152/90 H 100 03/24/18 04:00 03/24/18 06:00 03/24/18 06:00 03/24/18 05:53 03/24/18 06:00 Intake and Output: 03/24/18 03/24/18 06:59 18:59 Intake Total 1703.0 Output Total 3290 Balance -1587 - Medications Medications: Current Medications Albuterol/Ipratropium (Duoneb 3 Mg/0.5 Mg (3 Ml) Ud) 3 ml INH RQ6 [facility] Last Admin: 03/24/18 02:52 Dose: 3 ml Amiodarone HCl (Cordarone) 200 mg PO BID [facility] Last Admin: 03/23/18 18:37 Dose: 200 mg Aspirin (Aspirin Chewable) 81 mg PO DAILY [facility] Last Admin: 03/23/18 10:46 Dose: 81 mg Clopidogrel Bisulfate (Plavix) 75 mg PO DAILY [facility] Last Admin: 03/23/18 18:37 Dose: 75 mg Heparin Sodium/Sodium Chloride (Heparin 99214 Units/250ml 1/2 Normal Saline) 25 ,000 units in 250 mls @ 9.036 mls/hr IV .Q24H PRN; Protocol PRN Reason: ADJUST RATE PER PROTOCOL Last Admin: 03/24/18 00:37 Dose: 12 units/kg/hr, 9.036 mls/hr Propofol (Diprivan) 1,000 mg in 100 mls @ 2.259 mls/hr IV .Q24H PRN; Protocol PRN Reason: TITRATE PER MD ORDER Last Titration: 03/23/18 08:00 Dose: 0 mcg/kg/min, 0 mls/hr Piperacillin Sod/Tazobactam Sod (Zosyn 2.25 Gm Iv Premix) 2.25 gm in 50 mls @ 100 mls/hr IVPB Q6H [facility]; Protocol Last Admin: 03/24/18 06:04 Dose: 100 mls/hr Sodium Chloride (Sodium Chloride 0.9%) 1,000 mls @ 50 mls/hr IV .Q20H [facility] Last Admin: 03/24/18 02:38 Dose: Not Given Nitroglycerin/Dextrose (Nitroglycerin 50 Mg/250 Ml D5w) 50 mg in 250 mls @ 1.5 mls/hr IV .Q24H [facility]; Protocol Last Titration: 03/23/18 22:00 Dose: 10 mcg/min, 3 mls/hr Insulin Aspart (Novolog) 0 unit SC Q6 [facility]; Protocol Last Admin: 03/24/18 05:58 Dose: 4 units Methylprednisolone (Solu-Medrol) 40 mg IVP Q12 [facility] Last Admin: 03/23/18 21:23 Dose: 40 mg Morphine Sulfate (Morphine) 2 mg IVP Q4 PRN PRN Reason: Sedation Pantoprazole Sodium (Protonix Inj) 40 mg IVP DAILY [facility] Last Admin: 03/23/18 10:46 Dose: 40 mg Rosuvastatin Calcium (Crestor) 10 mg PO HS [facility] Last Admin: 03/23/18 21:23 Dose: 10 mg - Labs Labs: 03/24/18 06:35 03/24/18 06:35 PT 12.9 SECONDS (9.7-12.2) H 03/21/18 04:41 INR 1.2 03/21/18 04:41 APTT 51 SECONDS (21-34) H 03/24/18 06:35 - Constitutional Appears: No Acute Distress - Head Exam Head Exam: ATRAUMATIC, NORMOCEPHALIC - Neck Exam Neck Exam: absent: Lymphadenopathy - Respiratory Exam Respiratory Exam: Rhonchi - Cardiovascular Exam Cardiovascular Exam: REGULAR RHYTHM, RRR, +S1, +S2. absent: JVD - GI/Abdominal Exam GI & Abdominal Exam: Soft. absent: Tenderness - Skin Skin Exam: Dry, Normal Color Assessment and Plan (1) Cardiac arrest Assessment & Plan: S/p diagnostic cardiac cath via the right radial artery and right common femoral vein Tolerated well, no complications Non-obstructive CAD PCWP 15 mmHg EDP 17 mmHg Mild pulm HTN TR band at 13 ml air Mynx closure to the right common femoral vein TR band removal as per hospital protocol DC heparin and clopidogrel Status: Acute (2) Ventricular fibrillation Assessment & Plan: On amiodarone IV, which can be dc'd, especially in few of h/o pulmonary HTN Start bblocker, metoprolol 25 mg twice daily If nerologically recovers, will need ICD prior to dc Status: Acute (3) NSTEMI (non-ST elevated myocardial infarction) Assessment & Plan: Nonobstructive CAD on cath Cont with meds Stop heaprin and clopidogrel Status: Acute
[2018-03-24] MEDS: Propofol 10 mg/ml 1,000 MG/100 ML VIAL IV PRN (10:20)
[2018-03-24] MEDS: MethylPREDNISolone 40 mg Vial IVP SCH ×2 (10:27→21:00)
[2018-03-24] MEDS ORDERED: Enalaprilat 2.5 MG/2 ML IV ONE ×2 (11:09→17:49)
--- NOTE | 2018-03-24 12:57 | CP.PCM.PN ---
Subjective - Date & Time of Evaluation Date of Evaluation: 03/24/18 Time of Evaluation: 12:54 - Subjective Subjective: s/p cardiac cath this AM- reportedly negative given IV lasix- UO- 2790ml renal function stable lytes acceptable remains confused, lethargic Objective - Vital Signs/Intake and Output Vital Signs (last 24 hours): Temp Pulse Resp BP Pulse Ox 98 F 63 19 152/90 H 100 03/24/18 04:00 03/24/18 06:00 03/24/18 06:00 03/24/18 05:53 03/24/18 06:00 Intake and Output: 03/24/18 03/24/18 06:59 18:59 Intake Total 1703.0 50 Output Total 3290 Balance -1587 50 - Medications Medications: Current Medications Albuterol/Ipratropium (Duoneb 3 Mg/0.5 Mg (3 Ml) Ud) 3 ml INH RQ6 [facility] Last Admin: 03/24/18 02:52 Dose: 3 ml Aspirin (Aspirin Chewable) 81 mg PO DAILY [facility] Last Admin: 03/24/18 10:28 Dose: 81 mg Propofol (Diprivan) 1,000 mg in 100 mls @ 2.259 mls/hr IV .Q24H PRN; Protocol PRN Reason: TITRATE PER MD ORDER Last Admin: 03/24/18 10:20 Dose: 11.06 mcg/kg/min, 5 mls/hr Piperacillin Sod/Tazobactam Sod (Zosyn 2.25 Gm Iv Premix) 2.25 gm in 50 mls @ 100 mls/hr IVPB Q6H [facility]; Protocol Last Admin: 03/24/18 06:04 Dose: 100 mls/hr Sodium Chloride (Sodium Chloride 0.9%) 500 mls @ 42.5 mls/hr IV .[id number] DOUG Insulin Aspart (Novolog) 0 unit SC Q6 DOUG; Protocol Last Admin: 03/24/18 05:58 Dose: 4 units Methylprednisolone (Solu-Medrol) 40 mg IVP Q12 DOUG Last Admin: 03/24/18 10:27 Dose: 40 mg Metoprolol Tartrate (Lopressor) 12.5 mg PO BID DOUG Morphine Sulfate (Morphine) 2 mg IVP Q4 PRN PRN Reason: Sedation Pantoprazole Sodium (Protonix Inj) 40 mg IVP DAILY [facility] Last Admin: 03/24/18 10:27 Dose: 40 mg Rosuvastatin Calcium (Crestor) 10 mg PO HS [facility] Last Admin: 03/23/18 21:23 Dose: 10 mg - Labs Labs: 03/24/18 06:35 03/24/18 06:35 PT 12.9 SECONDS (9.7-12.2) H 03/21/18 04:41 INR 1.2 03/21/18 04:41 APTT 51 SECONDS (21-34) H 03/24/18 06:35 - Constitutional Appears: Confused, Chronically Ill - Head Exam Head Exam: ATRAUMATIC, NORMAL INSPECTION - Eye Exam Eye Exam: EOMI, Normal appearance - Neck Exam Neck Exam: Normal Inspection. absent: Tenderness - Respiratory Exam Respiratory Exam: Clear to Ausculation Bilateral, NORMAL BREATHING PATTERN - Cardiovascular Exam Cardiovascular Exam: REGULAR RHYTHM, +S1 - GI/Abdominal Exam GI & Abdominal Exam: Soft. absent: Tenderness - Extremities Exam Extremities Exam: Normal Inspection. absent: Tenderness - Neurological Exam Neurological Exam: Altered, Awake - Skin Skin Exam: Dry, Warm Assessment and Plan (1) ABDULKADIR (acute kidney injury) Status: Acute (2) COPD (chronic obstructive pulmonary disease) Status: Acute (3) Cardiac arrest Status: Acute (4) Ventricular fibrillation Status: Acute (5) HTN (hypertension) Status: Chronic (6) Pulmonary fibrosis Status: Chronic - Assessment and Plan (Free Text) Plan: recommended 500ml NS IV due to dye contrast, lasix use- try to prevent repeat ABDULKADIR
--- NOTE | 2018-03-24 14:24 | CP.PCM.PN ---
Subjective - Date & Time of Evaluation Date of Evaluation: 03/24/18 Time of Evaluation: 14:22 - Subjective Subjective: Neurology Follow-Up Note: Mr. Mejia was evaluated this morning with son at bedside. Pt has been extubated and is off sedation. He is status-post cardiac cath this morning. ROS unobtainable as pt is still nonverbal and unresponsive. Son states that since pt's extubation he has been making moaning noises but not speaking. Objective - Vital Signs/Intake and Output Vital Signs (last 24 hours): Temp Pulse Resp BP Pulse Ox 98.4 F 65 20 163/99 H 99 03/24/18 12:00 03/24/18 13:00 03/24/18 13:00 03/24/18 12:48 03/24/18 13:00 Intake and Output: 03/24/18 03/24/18 06:59 18:59 Intake Total 1703.0 367.5 Output Total 3290 400 Balance -1587 -32.5 - Medications Medications: Current Medications Albuterol/Ipratropium (Duoneb 3 Mg/0.5 Mg (3 Ml) Ud) 3 ml INH RQ6 [facility] Last Admin: 03/24/18 02:52 Dose: 3 ml Aspirin (Aspirin Chewable) 81 mg PO DAILY [facility] Last Admin: 03/24/18 10:28 Dose: 81 mg Propofol (Diprivan) 1,000 mg in 100 mls @ 2.259 mls/hr IV .Q24H PRN; Protocol PRN Reason: TITRATE PER MD ORDER Last Admin: 03/24/18 10:20 Dose: 11.06 mcg/kg/min, 5 mls/hr Piperacillin Sod/Tazobactam Sod (Zosyn 2.25 Gm Iv Premix) 2.25 gm in 50 mls @ 100 mls/hr IVPB Q6H [facility]; Protocol Last Admin: 03/24/18 06:04 Dose: 100 mls/hr Sodium Chloride (Sodium Chloride 0.9%) 500 mls @ 42.5 mls/hr IV .[id number] [facility] Insulin Aspart (Novolog) 0 unit SC Q6 [facility]; Protocol Last Admin: 03/24/18 14:14 Dose: Not Given Methylprednisolone (Solu-Medrol) 40 mg IVP Q12 [facility] Last Admin: 03/24/18 10:27 Dose: 40 mg Metoprolol Tartrate (Lopressor) 12.5 mg PO BID [facility] Last Admin: 03/24/18 14:14 Dose: Not Given Morphine Sulfate (Morphine) 2 mg IVP Q4 PRN PRN Reason: Sedation Pantoprazole Sodium (Protonix Inj) 40 mg IVP DAILY [facility] Last Admin: 03/24/18 10:27 Dose: 40 mg Rosuvastatin Calcium (Crestor) 10 mg PO HS [facility] Last Admin: 03/23/18 21:23 Dose: 10 mg - Labs Labs: 03/24/18 06:35 03/24/18 06:35 PT 12.9 SECONDS (9.7-12.2) H 03/21/18 04:41 INR 1.2 03/21/18 04:41 APTT 51 SECONDS (21-34) H 03/24/18 06:35 - Constitutional Appears: Well, Non-toxic, No Acute Distress - Head Exam Head Exam: ATRAUMATIC, NORMAL INSPECTION, NORMOCEPHALIC - Eye Exam Eye Exam: Normal appearance Pupil Exam: NORMAL ACCOMODATION, PERRL - ENT Exam ENT Exam: Mucous Membranes Moist - Respiratory Exam Respiratory Exam: NORMAL BREATHING PATTERN (extubated) - Cardiovascular Exam Cardiovascular Exam: REGULAR RHYTHM - GI/Abdominal Exam GI & Abdominal Exam: Soft - Extremities Exam Extremities Exam: absent: Calf Tenderness, Full ROM, Pedal Edema Additional comments: ENDER has immobilizer 2/2 cardiac cath LUE, LLE, and RLE flaccid, no resistance - Neurological Exam Neurological Exam: Reflexes Normal. absent: Alert, Awake, Oriented x3 Neuro motor strength exam: Left Upper Extremity: 0, Left Lower Extremity: 0, Right Lower Extremity: 0 Additional comments: Nonverbal, unresponsive to sternal rub Unable to follow commands ENDER has immobilizer 2/2 cardiac cath LUE, LLE, and RLE flaccid, no resistance Reflexes brisk Unable to test fine motor and sensation 2/2 pt's condition No tremors or clonus noted. - Psychiatric Exam Additional comments: nonverbal, unresponsive; removed from sedation this morning - Skin Skin Exam: Normal Color Assessment and Plan (1) Cardiac arrest Assessment & Plan: Mr. Mejia is a 67 y/o M who has a h/o pulmonary fibrosis, DM, HTN, and BPH admitted 03/19/18 for chest pain. Patient was admitted to ICU s/p cardiac arrest (Vfib/Vtach/NSTEMI). He is status-post cardiac cath this morning. He is extubated now and off sedation. Imaging reviewed: Head CT (03/19/18): 9x11mm Right middle cerebral artery aneurysm Head CT (03/22/18): Mild generalized volume loss. Previously noted right MCA aneurysm. -Continue ICU management for now. -Cardiology on case and managing cardiac issues. -Will re-evaluate neuro status once sedation wears off. Propofol was d/c'd earlier today and pt is still unresponsive and nonverbal. -I discussed neuro plan at length with pt's son. -Notify neuro team of any acute changes in pt's condition. Case discussed with Dr. Jay Status: Acute
[2018-03-24] MEDS: Sodium Chloride 0.9% 500 ML IV SCH (15:12)
[2018-03-24 16:36] LABS: ARTERIAL BLOOD GAS PCO2 32 mm/Hg (35-45); ARTERIAL BLOOD GAS PH 7.43 (7.35-7.45)
[2018-03-24 16:37] LABS: ARTERIAL BLOOD GAS HCO3 23.2 mmol/L (21-28); ARTERIAL BLOOD GAS PO2 417 mm/Hg (80-100); ARTERIAL BLOOD GAS TCO2 22.2 mmol/L (22-28)
--- NOTE | 2018-03-24 16:43 | CARDCATH ---
PROCEDURE DATE: 03/24/2018 CARDIAC CATHETERIZATION REPORT PROCEDURE: Cardiac catheterization, left heart catheterization, right heart cardiac catheterization. COMPLICATIONS: None. DESCRIPTION OF PROCEDURE: After obtaining informed consent from the patient's (the patient is intubated), the patient was brought to the cardiac catheterization laboratory. The patient was prepped and draped in usual sterile manner. A 1% lidocaine was used for local anesthesia. Using sonographic guidance, the right common femoral vein was accessed in modified Seldinger technique. A 7-Bruneian sheath was inserted into it over the guidewire. The sheath was flushed with heparinized saline. The right radial artery was accessed using radial access kit. A 5-Bruneian Terumo Slender sheath was inserted into it and flushed with heparinized saline. First, a 7-Bruneian [place]mo-Gera catheter was advanced into the right common femoral vein using fluoroscopic guidance of the inferior vena cava into the right atrium, across the tricuspid valve into the right ventricle, and eventually into the pulmonary artery. Distal part of the pulmonary artery was wedged. Pulmonary arterial capillary pressure was obtained. Next, the balloon was deflated and the pulmonary arterial pressure was recorded. O2 sats were obtained from pulmonary artery and right radial artery. The catheter was withdrawn into the right ventricle and pressures were recorded. Next, the catheter was withdrawn into the right atrium and pressures were recorded. The Saint Elmo-Gera catheter was removed. Next, the 6-Bruneian Terumo Linwood catheter was advanced across the right radial sheath using fluoroscopic guidance and over the guidewire into the ascending aorta. Next, the catheter was advanced across the aortic valve into the left ventricle. The catheter was flushed with heparinized saline and pressures were recorded. After obtaining left ventricular end-diastolic pressure, the catheter was withdrawn across the aortic valve using continuous pressure monitoring. Next, the catheter was advanced towards the left coronary system. Selective angiography was performed in multiple views. Next, the catheter was exchanged over the exchange wire for a 6-Bruneian JR4 diagnostic catheter. The catheter was flushed with heparinized saline and advanced through the right coronary system. Selective angiography of this vessel was performed with multiple views. The catheter was withdrawn over the guidewire. Procedure was performed with administration of heparin 5000 units to prevent radial artery thrombosis. A Terumo TR band was applied over the right radial catheter and deployed with excellent hemostasis. The Mynx closure device was utilized to close the right common femoral vein. RESULT OF THE PROCEDURE: CORONARY ANGIOGRAPHY: 1. Left Main: The left main is a large vessel bifurcating into a left anterior descending and left circumflex arteries. The vessel is free of disease. 2. Left Anterior Descending Artery: The left anterior descending artery is a medium to large size vessel, traveling across the anterior intraventricular groove and giving rise to multiple diagonal branches. The vessel has some luminary irregularities in the midportion of the vessel with 30% diffuse disease. 3. Left Circumflex Artery: Left circumflex artery is a large vessel giving rise to several obtuse marginal branches. This vessel is free of disease. 4. Right Coronary Artery: The right coronary artery is a dominant vessel, giving rise to the RPDA and RPLA branches and has an anomalous anterior take off. This vessel has a diffuse 50% lesion in the midportion of the vessel. HEMODYNAMIC DATA: Left ventricular end-diastolic pressure was 60 mmHg. The pulmonary capillary wedge pressure was measured at 50 mmHg. The PE pressure was 37/24 mmHg. The RV pressure was 36/9 mmHg with 60 mmHg mean pressure. The right atrial pressure was 16/13 mmHg. There was no significant gradient across the aortic valve. RESULTS OF THE PROCEDURE: 1. Single-vessel moderate coronary disease. 2. Mild pulmonary hypertension. 3. Normal wedge pressure. RECOMMENDATIONS: Medical management. Gadiel Moyer MD
[2018-03-25] MEDS: (Novolog) Insulin Aspart, Recombinant 100 u/ml 10 ml vial SC SCH ×4 (01:11→18:25)
[2018-03-25] MEDS: Piperacill/Tazo 2.25gm in Dex 2.25 GM/50 ML BAG IVPB SCH ×4 (01:11→18:00)
[2018-03-25] MEDS: Sodium Chloride 0.9% 500 ML IV SCH ×3 (01:11→21:29)
[2018-03-25] MEDS: Albuterol-Ipratrop 3 mg / 0.5 (3 ml) UD INH SCH ×4 (01:15→20:27)
[2018-03-25 06:33] LABS: BASO % 0.1 % (0.0-2.0); HEMOGLOBIN 10.8 g/dL (12.0-18.0); LYMPH # 0.7 K/uL (1.0-4.3); LYMPH % 5.1 % (20.0-40.0); MEAN CELL VOLUME 89.9 fL (80.0-94.0); MEAN CORPUSCULAR HEMOGLOBIN 28.7 pg (27.0-31.0); MEAN CORPUSCULAR HGB CONC 31.9 g/dL (33.0-37.0); MEAN PLATELET VOLUME 10.4 fL (7.2-11.7); MONO # 1.2 K/uL (0.0-0.8); MONO % 8.5 % (0.0-10.0); NEUT # 11.9 K/uL (1.8-7.0); NEUT % 86.3 % (50.0-75.0); NRBC % 0.1 % (0.0-2.0); PLATELET COUNT 143 K/uL (130-400); RBC 3.74 Mil/uL (4.40-5.90); RED CELL DISTRIBUTION WIDTH 14.2 % (11.5-14.5); WHITE BLOOD COUNT 13.8 K/uL (4.8-10.8)
[2018-03-25 07:17] LABS: ALB/GLOB RATIO 1.1 (1.0-2.1); ALBUMIN 3.6 g/dL (3.5-5.0); ALT/SGPT 35 U/L (21-72); AST/SGOT 31 U/L (17-59); BLOOD UREA NITROGEN 51 mg/dL (9-20); CALCIUM 8.6 mg/dl (8.6-10.4); GFR NON-AFRICAN AMERICAN 55
--- NOTE | 2018-03-25 08:30 | RAD ---
Chest x-ray single frontal view HISTORY: Intubated. Comparison: 03/23/2018 Findings: Interval removal of an endotracheal and NG tube. Moderate to severe venous congestion with diffuse increased interstitial airspace opacities bilaterally. Bilateral hilar prominence. Small nodular density at the right lung base laterally. Small left pleural effusion. Consolidative changes at the left lung base. Calcified lymph node in the left infrahilar region. Enlarged ectatic aorta. Cardiomegaly. Degenerative changes in the spine and shoulders. Impression: Interval removal of an endotracheal and NG tube. Moderate to severe venous congestion with diffuse increased interstitial airspace opacities bilaterally. Bilateral hilar prominence. Small nodular density at the right lung base laterally. Small left pleural effusion. Consolidative changes at the left lung base. Calcified lymph node in the left infrahilar region. Enlarged ectatic aorta. Cardiomegaly.
--- NOTE | 2018-03-25 08:34 | CP.PCM.PN ---
Subjective - Date & Time of Evaluation Date of Evaluation: 03/25/18 Time of Evaluation: 08:32 - Subjective Subjective: s/p cardiac cath remains confused renal function stable post contrast study lytes acceptable Objective - Vital Signs/Intake and Output Vital Signs (last 24 hours): Temp Pulse Resp BP Pulse Ox 97.7 F 62 22 147/85 95 03/25/18 08:00 03/25/18 07:00 03/25/18 07:00 03/25/18 07:01 03/25/18 07:00 Intake and Output: 03/25/18 03/25/18 06:59 18:59 Intake Total 567.5 42.5 Output Total 1000 Balance -432.5 42.5 - Medications Medications: Current Medications Albuterol/Ipratropium (Duoneb 3 Mg/0.5 Mg (3 Ml) Ud) 3 ml INH RQ6 [facility] Last Admin: 03/25/18 07:00 Dose: 3 ml Aspirin (Aspirin Chewable) 81 mg PO DAILY [facility] Last Admin: 03/24/18 10:28 Dose: 81 mg Piperacillin Sod/Tazobactam Sod (Zosyn 2.25 Gm Iv Premix) 2.25 gm in 50 mls @ 100 mls/hr IVPB Q6H [facility]; Protocol Last Admin: 03/25/18 06:11 Dose: 100 mls/hr Sodium Chloride (Sodium Chloride 0.9%) 500 mls @ 42.5 mls/hr IV .[id number] [facility] Last Admin: 03/25/18 01:11 Dose: Not Given Insulin Aspart (Novolog) 0 unit SC Q6 [facility]; Protocol Last Admin: 03/25/18 06:10 Dose: 4 units Methylprednisolone (Solu-Medrol) 40 mg IVP Q12 [facility] Last Admin: 03/24/18 21:00 Dose: 40 mg Metoprolol Tartrate (Lopressor) 12.5 mg PO BID [facility] Last Admin: 03/24/18 17:55 Dose: Not Given Morphine Sulfate (Morphine) 2 mg IVP Q4 PRN PRN Reason: Sedation Pantoprazole Sodium (Protonix Inj) 40 mg IVP DAILY [facility] Last Admin: 03/24/18 10:27 Dose: 40 mg Rosuvastatin Calcium (Crestor) 10 mg PO HS [facility] Last Admin: 03/24/18 22:47 Dose: Not Given - Labs Labs: 03/25/18 06:26 03/25/18 06:26 PT 12.9 SECONDS (9.7-12.2) H 03/21/18 04:41 INR 1.2 03/21/18 04:41 APTT 51 SECONDS (21-34) H 03/24/18 06:35 - Constitutional Appears: No Acute Distress, Chronically Ill - Head Exam Head Exam: ATRAUMATIC, NORMAL INSPECTION - Neck Exam Neck Exam: Normal Inspection. absent: Tenderness - Respiratory Exam Respiratory Exam: Clear to Ausculation Bilateral, NORMAL BREATHING PATTERN - Cardiovascular Exam Cardiovascular Exam: REGULAR RHYTHM, +S1 - GI/Abdominal Exam GI & Abdominal Exam: Soft. absent: Tenderness - Extremities Exam Extremities Exam: Normal Inspection. absent: Tenderness - Neurological Exam Neurological Exam: Altered - Skin Skin Exam: Dry, Warm Assessment and Plan (1) ABDULKADIR (acute kidney injury) Status: Resolved (2) COPD (chronic obstructive pulmonary disease) Status: Acute (3) Cardiac arrest Status: Acute (4) Ventricular fibrillation Status: Acute (5) HTN (hypertension) Status: Chronic (6) Pulmonary fibrosis Status: Chronic - Assessment and Plan (Free Text) Plan: will follow up again as needed
[2018-03-25 08:37] LABS: ANISOCYTOSIS SLIGHT; LYMPHOCYTE 11 % (20-40); MONOCYTE 10 % (0-10); MYELOCYTE 5 % (0-0); NEUTROPHIL 73 % (50-75); PLATELET ESTIMATE NORMAL (NORMAL); POIKILOCYTOSIS SLIGHT; REACTIVE LYMPHOCYTES 1 % (0-0); TOTAL CELLS COUNTED 100
[2018-03-25 08:38] LABS: HYPOCHROMIC SLIGHT
--- NOTE | 2018-03-25 09:06 | CP.PCM.PN ---
Subjective - Date & Time of Evaluation Date of Evaluation: 03/25/18 Time of Evaluation: 08:50 - Subjective Subjective: Patient is S/P cardiac cath and extubation yesterday afternoon. Currently he is awake, however non verbal besides grunting and moaning sounds. Moving all four extremities. He is not following commands. Two family members at bedside and we discussed. Patient son was concerned about mental status and we discussed at length. If he does not improve then in the future he may need PEG. There is a swallow evaluation pending but probably since he is not following commands will fail the swallow study. Objective - Vital Signs/Intake and Output Vital Signs (last 24 hours): Temp Pulse Resp BP Pulse Ox 97.7 F 62 22 147/85 95 03/25/18 08:00 03/25/18 07:00 03/25/18 07:00 03/25/18 07:01 03/25/18 07:00 Intake and Output: 03/25/18 03/25/18 06:59 18:59 Intake Total 567.5 42.5 Output Total 1000 Balance -432.5 42.5 - Medications Medications: Current Medications Albuterol/Ipratropium (Duoneb 3 Mg/0.5 Mg (3 Ml) Ud) 3 ml INH RQ6 [facility] Last Admin: 03/25/18 07:00 Dose: 3 ml Aspirin (Aspirin Chewable) 81 mg PO DAILY [facility] Last Admin: 03/24/18 10:28 Dose: 81 mg Piperacillin Sod/Tazobactam Sod (Zosyn 2.25 Gm Iv Premix) 2.25 gm in 50 mls @ 100 mls/hr IVPB Q6H [facility]; Protocol Last Admin: 03/25/18 06:11 Dose: 100 mls/hr Sodium Chloride (Sodium Chloride 0.9%) 500 mls @ 42.5 mls/hr IV .[id number] [facility] Last Admin: 03/25/18 01:11 Dose: Not Given Insulin Aspart (Novolog) 0 unit SC Q6 [facility]; Protocol Last Admin: 03/25/18 06:10 Dose: 4 units Methylprednisolone (Solu-Medrol) 40 mg IVP Q12 [facility] Last Admin: 03/24/18 21:00 Dose: 40 mg Metoprolol Tartrate (Lopressor) 12.5 mg PO BID [facility] Last Admin: 03/24/18 17:55 Dose: Not Given Morphine Sulfate (Morphine) 2 mg IVP Q4 PRN PRN Reason: Sedation Pantoprazole Sodium (Protonix Inj) 40 mg IVP DAILY [facility] Last Admin: 03/24/18 10:27 Dose: 40 mg Rosuvastatin Calcium (Crestor) 10 mg PO HS [facility] Last Admin: 03/24/18 22:47 Dose: Not Given - Labs Labs: 03/25/18 06:26 03/25/18 06:26 PT 12.9 SECONDS (9.7-12.2) H 03/21/18 04:41 INR 1.2 03/21/18 04:41 APTT 51 SECONDS (21-34) H 03/24/18 06:35 - Constitutional Appears: Unkempt, Older Than Stated Age, Agitated - Respiratory Exam Respiratory Exam: Clear to Ausculation Bilateral, NORMAL BREATHING PATTERN - Cardiovascular Exam Cardiovascular Exam: REGULAR RHYTHM - GI/Abdominal Exam GI & Abdominal Exam: Soft, Normal Bowel Sounds - Neurological Exam Neurological Exam: Altered Assessment and Plan - Assessment and Plan (Free Text) Assessment: This is a 67 year old male with past medical history of pulmonary fibrosis, DM, HTN, and BPH admitted 03/19/18 for chest pain in the ER he had a witness cardiac arrest. Patient was admitted to ICU s/p cardiac arrest (Vfib/Vtach/NSTEMI). Unresponsiveness/- suspecting anoxic brain encephalopathy. 03/25: Non following commands, not verbal. He is moving all four extremities. There is a swallow study pending but he probably will not be able to follow commands for the test. May need a PEG if does not improve. I discussed with the family members. He may need EEG 03/23 Currently not agitated. 03/22: This morning was awake and agitated despite being on a propofol ggt. It is being titrated at this moment. Head CT (03/19/18): 9x11mm Right middle cerebral artery aneurysm Head CT (03/22/18): Mild generalized volume loss. Previously noted right MCA a neurysm. Cardiac arrest and Respiratory failure, currently intubated 03/25: Extubated yesterday following cardiac catherization 03/23: Remains intubated. 03/22: Patient may need cardiac catherization soon. Patient remains on heparin ggt and amiodarone ASA and BB Elevated troponin/NSTEMI 1/10: S/P cardiac catherization yesterday and reportedly he had non obstructive CAD 03/23: pending transfer [place] [facility]vated troponin and s/p CRP LBBB-old Initial rhythm asytole ,Epi x 3 given, went into VF/VT requiring shock and Amiodarone 300mg Elevated troponin,EKG LBBB(old) Currently in NSR on oral Amiodarone 200mg BID ,off Amiodarone drip,Hemodynamically stable,not on pressors,on metoprolol 25mg po bid ,asprin and heparin drip d/w vibrating screen operator Bossman this afternoon. Lead Applications Developer will follow his creatinine and discuss with his family about cath tomorrow Echo reviewed with vibrating screen operator in the ICU, preserved LV function, griselda-septal hypokinesis Leukocytosis,possible pneumonia/lung infection 03/22: Currently the cultures are negative at this time. Remains on IV abx Zosyn WBC remains elevated, maybe from cardiac arrest event. Acute renal failure 03/23: Creatine decreased to 1.4 and U/O 1450 03/22: This morning creatine decreased to 1.6 and urine output was 1065 Currently on IV fluids Nephrology consult appreciated Severe pulmonary fibrosis CT chest centrilobular emphysema and upper lobe pulmonary fobrosis DR Salazar for pulmonary consult do RF,JENNIFER,ESR On IV steroid r/o infection, On zosyn DM monitor sugar Hypertension hold lisinopril,monitor BP Supportive care DVt prophylaxis is on heparin GI prophy is on protonix feeding-NG Plan: Patient is alert, fighting ventilator, able to follow commands From a neurological standpoint patient is able to be extubated.
[2018-03-25] MEDS: MethylPREDNISolone 40 mg Vial IVP SCH ×2 (10:00→21:29)
--- NOTE | 2018-03-25 11:15 | CP.PCM.PN ---
<Lauryn Case - Last Filed: 03/25/18 18:24> Subjective - Date & Time of Evaluation Date of Evaluation: 03/25/18 Time of Evaluation: 08:00 - Subjective Subjective: Neurology Progress Note: Patient was seen and examined at bedside in the AM. Patient was extubated 03/24/17. Patient is able to follow minimal commands. Patient is Patient's son states the patient keeps moving his neck from side to side. ROS unobtainable as pt is still nonverbal and unresponsive. Objective - Vital Signs/Intake and Output Vital Signs (last 24 hours): Temp Pulse Resp BP Pulse Ox 97.7 F 86 14 143/96 H 98 03/25/18 08:00 03/25/18 10:01 03/25/18 10:01 03/25/18 10:01 03/25/18 10:01 Intake and Output: 03/25/18 03/25/18 06:59 18:59 Intake Total 567.5 42.5 Output Total 1000 Balance -432.5 42.5 - Medications Medications: Current Medications Albuterol/Ipratropium (Duoneb 3 Mg/0.5 Mg (3 Ml) Ud) 3 ml INH RQ6 [facility] Last Admin: 03/25/18 07:00 Dose: 3 ml Aspirin (Aspirin Supp) 300 mg NE DAILY [facility] Heparin Sodium (Porcine) (Heparin) 5,000 units SC Q8 [facility] Piperacillin Sod/Tazobactam Sod (Zosyn 2.25 Gm Iv Premix) 2.25 gm in 50 mls @ 100 mls/hr IVPB Q6H [facility]; Protocol Last Admin: 03/25/18 06:11 Dose: 100 mls/hr Sodium Chloride (Sodium Chloride 0.9%) 500 mls @ 42.5 mls/hr IV .[id number] [facility] Last Admin: 03/25/18 01:11 Dose: Not Given Insulin Aspart (Novolog) 0 unit SC Q6 [facility]; Protocol Last Admin: 03/25/18 06:10 Dose: 4 units Methylprednisolone (Solu-Medrol) 40 mg IVP Q12 [facility] Last Admin: 03/24/18 21:00 Dose: 40 mg Metoprolol Tartrate (Lopressor) 12.5 mg PO BID [facility] Last Admin: 03/24/18 17:55 Dose: Not Given Pantoprazole Sodium (Protonix Inj) 40 mg IVP DAILY [facility] Last Admin: 03/24/18 10:27 Dose: 40 mg - Labs Labs: 03/25/18 06:26 03/25/18 06:26 PT 12.9 SECONDS (9.7-12.2) H 03/21/18 04:41 INR 1.2 03/21/18 04:41 APTT 51 SECONDS (21-34) H 03/24/18 06:35 - Constitutional Appears: Non-toxic, No Acute Distress, Chronically Ill - Head Exam Head Exam: ATRAUMATIC, NORMAL INSPECTION - Eye Exam Eye Exam: EOMI, Normal appearance - ENT Exam ENT Exam: Mucous Membranes Moist - Respiratory Exam Respiratory Exam: NORMAL BREATHING PATTERN - Cardiovascular Exam Cardiovascular Exam: REGULAR RHYTHM - GI/Abdominal Exam GI & Abdominal Exam: Soft - Extremities Exam Additional comments: LUE, LLE, and RLE flaccid, no resistance - Neurological Exam Neurological Exam: Awake. absent: Alert, Oriented x3 Neuro motor strength exam: Left Upper Extremity: 0, Right Upper Extremity: 0, Left Lower Extremity: 0, Right Lower Extremity: 0 Additional comments: Nonverbal Follows certain commands: open or close eyes Reflexes+1 Unable to test fine motor and sensation 2/2 pt's condition No tremors or clonus noted. - Skin Skin Exam: Normal Color Assessment and Plan - Assessment and Plan (Free Text) Assessment: 67 year old male with past medical history of pulmonary fibrosis, DM, HTN, and BPH admitted 03/19/18 for chest pain. Patient was admitted to ICU s/p cardiac arrest (Vfib/Vtach/NSTEMI). Imaging reviewed: Head CT (03/19/18): 9x11mm Right middle cerebral artery aneurysm Head CT (03/22/18): Mild generalized volume loss. Previously noted right MCA aneurysm. Patient is awake, extubated 03/24/17, able to follow simple commands, patient is non-verbal, not alert or oriented. During cardiac arrest patient was down for about a possible 28 minutes. Neurological status possibly secondary to seizure or anoxic brain injury. Patient given one dose of Ativan 2mg and Benadryl 25mg f/u repeat head CT and EEG Case discussed with Dr. Pierre Case PGY-2 <Quentin Jay - Last Filed: 03/28/18 14:01> Objective - Vital Signs/Intake and Output Vital Signs (last 24 hours): Temp Pulse Resp BP Pulse Ox 98.3 F 78 18 152/100 H 94 L 03/28/18 09:12 03/28/18 09:12 03/28/18 09:12 03/28/18 11:00 03/28/18 09:12 Intake and Output: 03/28/18 03/28/18 06:59 18:59 Intake Total 0 Balance 0 - Medications Medications: Current Medications Albuterol/Ipratropium (Duoneb 3 Mg/0.5 Mg (3 Ml) Ud) 3 ml INH RQ6 [facility] Last Admin: 03/28/18 07:45 Dose: 3 ml Aspirin (Aspirin Supp) 300 mg NE DAILY [facility] Last Admin: 03/25/18 11:00 Dose: 300 mg Heparin Sodium (Porcine) (Heparin) 5,000 units SC Q8 [facility] Last Admin: 03/28/18 13:53 Dose: 5,000 units Dextrose/Sodium Chloride (Dextrose 5%/0.45% Ns 1000 Ml) 1,000 mls @ 50 mls/hr IV .Q20H [facility] Last Admin: 03/28/18 07:25 Dose: Not Given Cefepime HCl (Maxipime Iv 2 Gm Premix) 2 gm in 100 mls @ 100 mls/hr IVPB Q12H [facility]; Protocol Stop: 03/31/18 18:01 Last Admin: 03/28/18 05:49 Dose: 100 mls/hr Vancomycin HCl 1 gm/ Sodium (Chloride) 250 mls @ 166.7 mls/hr IVPB Q24H [facility]; Protocol Last Admin: 03/27/18 21:50 Dose: 166.7 mls/hr Insulin Aspart (Novolog) 0 unit SC Q6 [facility]; Protocol Last Admin: 03/28/18 12:36 Dose: 4 units Lorazepam (Ativan) 1 mg IVP Q4H PRN PRN Reason: Restlessness Last Admin: 03/28/18 13:50 Dose: 1 mg Methylprednisolone (Solu-Medrol) 40 mg IVP Q12 [facility] Last Admin: 03/28/18 11:00 Dose: 40 mg Metoprolol Tartrate (Lopressor) 5 mg IVP Q6 PRN PRN Reason: elevated blood pressure Last Admin: 03/26/18 18:27 Dose: 5 mg Metoprolol Tartrate (Lopressor) 25 mg PEG BID [facility] Last Admin: 03/28/18 11:00 Dose: 25 mg Oseltamivir Phosphate (Tamiflu Cap) 75 mg PO BID [facility]; Protocol Last Admin: 03/28/18 11:00 Dose: 75 mg Pantoprazole Sodium (Protonix Inj) 40 mg IVP DAILY [facility] Last Admin: 03/28/18 11:00 Dose: 40 mg Rosuvastatin Calcium (Crestor) 10 mg PO HS [facility] Last Admin: 03/27/18 21:48 Dose: 10 mg Vitamin A (Vitamin A & D Oint Ud Foilpak) 1 ea TOP Q6 PRN PRN Reason: Dry mouth Last Admin: 03/28/18 12:37 Dose: 1 ea - Labs Labs: 03/28/18 07:50 03/28/18 07:50 PT 12.9 SECONDS (9.7-12.2) H 03/21/18 04:41 INR 1.2 03/21/18 04:41 APTT 51 SECONDS (21-34) H 03/24/18 06:35 Attending/Attestation - Attestation I have personally seen and examined this patient.: Yes I have fully participated in the care of the patient.: Yes I have reviewed all pertinent clinical information, including history, physical exam and plan: Yes Notes (Text): I agree with the assessment and plan: will repeat CT head and EEG.
--- NOTE | 2018-03-25 12:01 | CP.PCM.CON ---
<Jalen Snow - Last Filed: 03/25/18 17:57> History of Present Illness - History of Present Illness History of Present Illness: General Surgery Consult Re: PEG placement HPI: Pt is unable to give history at this time due to AMS. History [id number] who presented to the ED 03/19/18 for shortness of breath but then [employer] called for wide complex VTach then becoming pulseless and CPR initiated. 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 Surgery team consulted for PEG tube placement for feeds after pt failed swallow eval as he will infrequently follow a few commands. PMH: HTN, DM, pulm fibrosis PSH: cystoscopy SH: Former smoker, chews tobacco. Social EtOH. No drug use. FH: denies Med: Metformin 500 po bid, Lisinopril 5mg po daily All: NKDA Review of Systems - Review of Systems Systems not reviewed;Unavailable: Altered Mental Status Past Patient History - Past Medical History & Family History Past Medical History?: Yes - Past Social History Smoking Status: Former Smoker - CARDIAC Hx Cardiac Disorders: Yes Hx Hypertension: Yes - PULMONARY Hx Respiratory Disorders: No - NEUROLOGICAL Hx Neurological Disorder: No - HEENT Hx HEENT Problems: No - RENAL Hx Chronic Kidney Disease: No - ENDOCRINE/METABOLIC Hx Endocrine Disorders: Yes Hx Diabetes Mellitus Type 2: Yes - HEMATOLOGICAL/ONCOLOGICAL Hx Blood Disorders: No - INTEGUMENTARY Hx Dermatological Problems: No - MUSCULOSKELETAL/RHEUMATOLOGICAL Hx Falls: No - GASTROINTESTINAL Hx Gastrointestinal Disorders: No - GENITOURINARY/GYNECOLOGICAL Hx Genitourinary Disorders: Yes Hx Prostate Problems: Yes (bph) - PSYCHIATRIC Hx Substance Use: No - SURGICAL HISTORY Hx Surgeries: Yes Other/Comment: cystoscopy - ANESTHESIA Hx Anesthesia: Yes Hx Anesthesia Reactions: No Hx Malignant Hyperthermia: No Has any member of the family had a problem w/ anesthesia?: No Meds Allergies/Adverse Reactions: Allergies Allergy/AdvReac Type Severity Reaction Status Date / Time No Known Allergies Allergy Verified 12/12/15 11:59 - Medications Medications: Current Medications Albuterol/Ipratropium (Duoneb 3 Mg/0.5 Mg (3 Ml) Ud) 3 ml INH RQ6 DOUG Last Admin: 03/25/18 07:00 Dose: 3 ml Aspirin (Aspirin Supp) 300 mg MD DAILY [facility]OU[facility] Heparin Sodium (Porcine) (Heparin) 5,000 units SC Q8 DOUG Piperacillin Sod/Tazobactam Sod (Zosyn 2.25 Gm Iv Premix) 2.25 gm in 50 mls @ 100 mls/hr IVPB Q6H [facility]; Protocol Last Admin: 03/25/18 06:11 Dose: 100 mls/hr Sodium Chloride (Sodium Chloride 0.9%) 500 mls @ 42.5 mls/hr IV .[id number] [facility] Last Admin: 03/25/18 01:11 Dose: Not Given Insulin Aspart (Novolog) 0 unit SC Q6 [facility]; Protocol Last Admin: 03/25/18 06:10 Dose: 4 units Methylprednisolone (Solu-Medrol) 40 mg IVP Q12 [facility] Last Admin: 03/24/18 21:00 Dose: 40 mg Metoprolol Tartrate (Lopressor) 12.5 mg PO BID [facility] Last Admin: 03/24/18 17:55 Dose: Not Given Pantoprazole Sodium (Protonix Inj) 40 mg IVP DAILY [facility] Last Admin: 03/24/18 10:27 Dose: 40 mg Physical Exam - Constitutional Appears: No Acute Distress, Agitated - Head Exam Head Exam: ATRAUMATIC, NORMOCEPHALIC - Eye Exam Eye Exam: absent: Conjunctival injection, Scleral icterus - ENT Exam ENT Exam: Mucous Membranes Dry Additional comments: trachea midline - Neck Exam Neck exam: Positive for: Full Rom. Negative for: Lymphadenopathy - Respiratory Exam Respiratory Exam: NORMAL BREATHING PATTERN. absent: Accessory Muscle Use, Respiratory Distress - Cardiovascular Exam Cardiovascular Exam: +S1, +S2. absent: Bradycardia, Tachycardia - GI/Abdominal Exam GI & Abdominal Exam: Soft. absent: Distended, Tenderness Additional comments: no prior surgical scars seen - Rectal Exam Rectal Exam: Deferred - Extremities Exam Extremities exam: Positive for: normal capillary refill, pedal pulses present. Negative for: pedal edema - Back Exam Back exam: absent: CVA tenderness (L), CVA tenderness (R) - Neurological Exam Neurological exam: Altered - Psychiatric Exam Psychiatric exam: Agitated - Skin Skin Exam: Dry, Warm Results - Vital Signs Recent Vital Signs: Last Vital Signs Temp 97.7 F 03/25/18 08:00 Pulse 86 03/25/18 10:01 Resp 14 03/25/18 10:01 BP 143/96 H 03/25/18 10:01 Pulse Ox 98 03/25/18 10:01 - Labs Result Diagrams: 03/25/18 06:26 03/25/18 06:26 Labs: Laboratory Results - last 24 hr 03/24/18 03/24/18 03/25/18 08:32 18:32 00:10 WBC RBC Hgb Hct MCV MCH MCHC RDW Plt Count MPV Neut % (Auto) Lymph % (Auto) [place] % (Auto) Eos % (Auto) Baso % (Auto) Neut # (Auto) Lymph # (Auto) [place] # (Auto) Eos # (Auto) Baso # (Auto) Neutrophils % (Manual) Lymphocytes % (Manual) Reactive Lymphs % Monocytes % (Manual) Myelocytes % Platelet Estimate Hypochromasia (manual) Poikilocytosis (manual Anisocytosis (manual) pCO2 32 L pO2 417 H HCO3 23.2 ABG pH 7.43 ABG Total CO2 22.2 ABG O2 Saturation 100.0 H ABG Base Excess -2.3 L Sodium Potassium Chloride Carbon Dioxide Anion Gap BUN Creatinine Est GFR ( Amer) Est GFR (Non-Af Amer) POC Glucose (mg/dL) 278 H 295 H Random Glucose Calcium Phosphorus Magnesium Total Bilirubin AST ALT Alkaline Phosphatase Total Protein Albumin Globulin Albumin/Globulin Ratio 03/25/18 03/25/18 03/25/18 04:56 06:26 06:26 WBC 13.8 H RBC 3.74 L Hgb 10.8 L Hct 33.7 L MCV 89.9 MCH 28.7 MCHC 31.9 L RDW 14.2 Plt Count 143 MPV 10.4 Neut % (Auto) 86.3 H Lymph % (Auto) 5.1 L [place] % (Auto) 8.5 Eos % (Auto) 0.0 Baso % (Auto) 0.1 Neut # (Auto) 11.9 H Lymph # (Auto) 0.7 L [place] # (Auto) 1.2 H Eos # (Auto) 0.0 Baso # (Auto) 0.0 Neutrophils % (Manual) 73 Lymphocytes % (Manual) 11 L Reactive Lymphs % 1 H Monocytes % (Manual) 10 Myelocytes % 5 H Platelet Estimate Normal Hypochromasia (manual) Slight Poikilocytosis (manual Slight Anisocytosis (manual) Slight pCO2 pO2 HCO3 ABG pH ABG Total CO2 ABG O2 Saturation ABG Base Excess Sodium 147 Potassium 4.6 Chloride 114 H Carbon Dioxide 24 Anion Gap 14 BUN 51 H Creatinine 1.3 Est GFR ( Amer) > 60 Est GFR (Non-Af Amer) 55 POC Glucose (mg/dL) 260 H Random Glucose 201 H Calcium 8.6 Phosphorus Magnesium Total Bilirubin 1.0 AST 31 ALT 35 Alkaline Phosphatase 77 Total Protein 6.9 Albumin 3.6 Globulin 3.3 Albumin/Globulin Ratio 1.1 03/25/18 06:26 WBC RBC Hgb Hct MCV MCH MCHC RDW Plt Count MPV Neut % (Auto) Lymph % (Auto) [place] % (Auto) Eos % (Auto) Baso % (Auto) Neut # (Auto) Lymph # (Auto) [place] # (Auto) Eos # (Auto) Baso # (Auto) Neutrophils % (Manual) Lymphocytes % (Manual) Reactive Lymphs % Monocytes % (Manual) Myelocytes % Platelet Estimate Hypochromasia (manual) Poikilocytosis (manual Anisocytosis (manual) pCO2 pO2 HCO3 ABG pH ABG Total CO2 ABG O2 Saturation ABG Base Excess Sodium Potassium Chloride Carbon Dioxide Anion Gap BUN Creatinine Est GFR ( Amer) Est GFR (Non-Af Amer) POC Glucose (mg/dL) Random Glucose Calcium Phosphorus 3.3 Magnesium 2.5 H Total Bilirubin AST ALT Alkaline Phosphatase Total Protein Albumin Globulin Albumin/Globulin Ratio Assessment & Plan - Assessment and Plan (Free Text) Assessment: 67M S/P Plan: Plan for PEG tube placement 03/26/18 Medically optimize pt for procedure. Discussed with ICU team. Continue NPO D/W Dr. Andrew Snow PGY4 <Ayden Morales - Last Filed: 04/01/18 21:05> Meds - Medications Medications: Current Medications Acetaminophen (Tylenol 650 Mg Supp) 650 mg MD Q6 PRN PRN Reason: fever+pain Aspirin (Aspirin Supp) 300 mg MD DAILY [facility] Last Admin: 04/01/18 10:47 Dose: 300 mg Heparin Sodium (Porcine) (Heparin) 5,000 units SC Q8 [facility] Last Admin: 04/01/18 14:20 Dose: 5,000 units Sodium Chloride (Sodium Chloride 0.45%) 1,000 mls @ 75 mls/hr IV .[id number] [facility] Last Admin: 03/31/18 18:00 Dose: Not Given Cefepime HCl 2 gm/ Dextrose 50 mls @ 100 mls/hr IVPB Q12H [facility]; Protocol Last Admin: 04/01/18 19:33 Dose: 100 mls/hr Insulin Aspart (Novolog) 0 unit SC Q6 [facility]; Protocol Last Admin: 04/01/18 18:27 Dose: 4 units Insulin Glargine (Lantus) 16 unit SC HS [facility] Lorazepam (Ativan) 1 mg IVP Q4H PRN PRN Reason: Restlessness Last Admin: 03/29/18 23:11 Dose: 1 mg Losartan Potassium (Cozaar) 25 mg PEG DAILY [facility] Last Admin: 04/01/18 10:47 Dose: 25 mg Methylprednisolone (Solu-Medrol) 40 mg IVP BID [facility] Last Admin: 04/01/18 18:27 Dose: 40 mg Metoprolol Tartrate (Lopressor) 5 mg IVP Q6 PRN PRN Reason: elevated blood pressure Last Admin: 03/31/18 06:09 Dose: 5 mg Metoprolol Tartrate (Lopressor) 25 mg PEG BID [facility] Last Admin: 04/01/18 18:27 Dose: 25 mg Oseltamivir Phosphate (Tamiflu Susp) 30 mg GT BID [facility]; Protocol Stop: 04/05/18 18:31 Last Admin: 04/01/18 19:24 Dose: 30 mg Pantoprazole Sodium (Protonix Susp) 40 mg PO DAILY [facility] Last Admin: 04/01/18 10:48 Dose: 40 mg Rosuvastatin Calcium (Crestor) 10 mg PO HS [facility] Last Admin: 03/31/18 21:51 Dose: 10 mg Vitamin A (Vitamin A & D Oint Ud Foilpak) 1 ea TOP Q6 PRN PRN Reason: Dry mouth Last Admin: 03/30/18 22:45 Dose: 1 ea Vitamin A (Vitamin A & D Oint Ud Foilpak) 1 ea TOP Q8 PRN PRN Reason: Dry mouth Last Admin: 03/30/18 15:20 Dose: 1 ea Results - Vital Signs Recent Vital Signs: Last Vital Signs Temp 97.6 F 04/01/18 16:00 Pulse 70 04/01/18 16:00 Resp 20 04/01/18 16:00 BP 144/90 04/01/18 18:27 Pulse Ox 98 04/01/18 16:00 - Labs Result Diagrams: 04/01/18 07:12 04/01/18 07:12 Labs: Laboratory Results - last 24 hr 03/31/18 04/01/18 04/01/18 18:27 00:31 06:38 WBC RBC Hgb Hct MCV MCH MCHC RDW Plt Count MPV Neut % (Auto) Lymph % (Auto) [place] % (Auto) Eos % (Auto) Baso % (Auto) Neut # (Auto) Lymph # (Auto) [place] # (Auto) Eos # (Auto) Baso # (Auto) Neutrophils % (Manual) Band Neutrophils % Lymphocytes % (Manual) Monocytes % (Manual) Platelet Estimate Hypochromasia (manual) Poikilocytosis (manual Anisocytosis (manual) Sodium Potassium Chloride Carbon Dioxide Anion Gap BUN Creatinine Est GFR ( Amer) Est GFR (Non-Af Amer) POC Glucose (mg/dL) 342 H 373 H 337 H Random Glucose Calcium Phosphorus Magnesium Total Bilirubin AST ALT Alkaline Phosphatase Total Protein Albumin Globulin Albumin/Globulin Ratio 04/01/18 04/01/18 04/01/18 07:12 07:12 11:18 WBC 21.6 H RBC 4.15 L Hgb 11.9 L Hct 37.6 MCV 90.6 MCH 28.7 MCHC 31.7 L RDW 13.9 Plt Count 120 L MPV 11.5 Neut % (Auto) 94.0 H Lymph % (Auto) 2.9 L [place] % (Auto) 2.9 Eos % (Auto) 0.0 Baso % (Auto) 0.2 Neut # (Auto) 20.3 H Lymph # (Auto) 0.6 L [place] # (Auto) 0.6 Eos # (Auto) 0.0 Baso # (Auto) 0.0 Neutrophils % (Manual) 95 H Band Neutrophils % 1 Lymphocytes % (Manual) 2 L Monocytes % (Manual) 2 Platelet Estimate Slightly decreased L Hypochromasia (manual) Slight Poikilocytosis (manual Slight Anisocytosis (manual) Slight Sodium 144 Potassium 4.4 Chloride 117 H Carbon Dioxide 24 Anion Gap 8 L BUN 53 H Creatinine 1.1 Est GFR ( Amer) > 60 Est GFR (Non-Af Amer) > 60 POC Glucose (mg/dL) 324 H Random Glucose 339 H Calcium 8.4 L Phosphorus 3.7 Magnesium 2.2 Total Bilirubin 0.7 AST 21 ALT 27 Alkaline Phosphatase 102 Total Protein 5.5 L Albumin 2.8 L Globulin 2.7 Albumin/Globulin Ratio 1.0 04/01/18 17:59 WBC RBC Hgb Hct MCV MCH MCHC RDW Plt Count MPV Neut % (Auto) Lymph % (Auto) [place] % (Auto) Eos % (Auto) Baso % (Auto) Neut # (Auto) Lymph # (Auto) [place] # (Auto) Eos # (Auto) Baso # (Auto) Neutrophils % (Manual) Band Neutrophils % Lymphocytes % (Manual) Monocytes % (Manual) Platelet Estimate Hypochromasia (manual) Poikilocytosis (manual Anisocytosis (manual) Sodium Potassium Chloride Carbon Dioxide Anion Gap BUN Creatinine Est GFR ( Amer) Est GFR (Non-Af Amer) POC Glucose (mg/dL) 299 H Random Glucose Calcium Phosphorus Magnesium Total Bilirubin AST ALT Alkaline Phosphatase Total Protein Albumin Globulin Albumin/Globulin Ratio Attending/Attestation - Attestation I have personally seen and examined this patient.: Yes I have fully participated in the care of the patient.: Yes I have reviewed all pertinent clinical information: Yes Notes (Text): Pt was seen and examined at bedside Agree with above note and assessment Pt with AMS s/p Cardiac arrest and hypoxia Abdomen: Soft, ND, Tender in RUQ Labs and radiology reviewed Ass: Dysphagia, AMS Plan: OR for EGD and PEG tube placement Consent from family NPO, IVF c.w current mx Plan d.w pt's family in detail Risk and benefit explained in detail.
--- NOTE | 2018-03-25 12:41 | CP.CCUPN ---
<Kae Wall - Last Filed: 03/25/18 12:38> CCU Subjective - Physician Review Subjective (Free Text): Critical Care Progress Note for Dr. Nogueira's service Patient seen and examined at bedside. Limited ROS as patient is non communicative. Off sedation. Critical Care Time Spent (in minutes): 35 CCU Objective - Vital Signs / Intake & Output Vital Signs (Last 4 hours): Vital Signs Temp Pulse Resp BP Pulse Ox 03/25/18 12:01 87 33 H 145/93 H 96 03/25/18 12:00 98.9 F 91 H 27 H 98 03/25/18 11:01 79 26 H 133/91 H 98 03/25/18 11:00 78 24 96 03/25/18 10:01 86 14 143/96 H 98 03/25/18 10:00 92 H 20 99 03/25/18 09:01 87 32 H 151/94 H 91 L 03/25/18 09:00 86 24 94 L Intake and Output (Last 8hrs): Intake & Output 03/24/18 03/25/18 03/25/18 22:59 06:59 14:59 Intake Total 355.0 397.5 42.5 Output Total 710 1000 Balance -355.0 -602.5 42.5 Weight 163 lb Intake: Intake, IV Amount 355.0 397.5 42.5 Right Hand 355.0 397.5 42.5 Output: Urine 710 1000 Straight 1000 Urethral (Melvin) 710 Other: # Bowel Movements 1 - Physical Exam Head: Positive for: Atraumatic, Normocephalic Extroacular Muscles: Positive for: EOMI Mouth: Positive for: Dry Neck: Positive for: Normal Range of Motion Respiratory/Chest: Positive for: Clear to Auscultation, Good Air Exchange. Negative for: Accessory Muscle Use Cardiovascular: Positive for: Regular Rate and Rhythm, Normal S1, S2 Abdomen: Positive for: Normal Bowel Sounds. Negative for: Tenderness, Distention, Peritoneal Signs Upper Extremity: Positive for: Normal Inspection. Negative for: Cyanosis, Edema Lower Extremity: Positive for: Normal Inspection. Negative for: Edema Neurological: Negative for: GCS=15 Skin: Positive for: Dry, Normal Color Psychiatric: Positive for: Other (possible neurological damange for AMS). Negative for: Oriented x 3 - Medications Active Medications: Active Medications Generic Name Dose Route Start Last Admin Trade Name Freq PRN Reason Stop Dose Admin Albuterol/Ipratropium 3 ml 03/20/18 14:00 03/25/18 07:00 Duoneb 3 Mg/0.5 Mg (3 Ml) Ud INH 3 ml RQ6 [facility]OUG Administration Aspirin 300 mg 03/25/18 10:00 Aspirin Supp UT DAILY [facility] Heparin Sodium (Porcine) 5,000 units 03/25/18 14:00 Heparin SC Q8 [facility] Piperacillin Sod/Tazobactam Sod 2.25 gm in 50 mls @ 100 mls/hr 03/21/18 19:00 03/25/18 06:11 Zosyn 2.25 Gm Iv Premix IVPB 100 mls/hr Q6H [facility] Administration Protocol Sodium Chloride 500 mls @ 42.5 mls/hr 03/24/18 12:45 03/25/18 01:11 Sodium Chloride 0.9% IV Not Given .[id number] [facility] Insulin Aspart 0 unit 03/19/18 20:00 03/25/18 12:00 Novolog SC Not Given Q6 [facility] Protocol Methylprednisolone 40 mg 03/22/18 10:00 03/24/18 21:00 Solu-Medrol IVP 40 mg Q12 [facility] Administration Metoprolol Tartrate 12.5 mg 03/24/18 11:15 03/25/18 09:00 Lopressor PO Not Given BID [facility] Pantoprazole Sodium 40 mg 03/20/18 10:00 03/24/18 10:27 Protonix Inj IVP 40 mg DAILY [facility] Administration - Patient Studies Lab Studies: Microbiology Studies 03/19/18 20:30 Blood Culture - Final Blood NO GROWTH AFTER 5 DAYS Gram Stain - Final TEST NOT PERFORMED 03/19/18 21:10 Blood Culture - Final Blood NO GROWTH AFTER 5 DAYS Gram Stain - Final TEST NOT PERFORMED Lab Studies 03/25/18 03/25/18 03/25/18 Range/Units 06:26 06:26 06:26 WBC 13.8 H (4.8-10.8) K/uL RBC 3.74 L (4.40-5.90) Mil/uL Hgb 10.8 L (12.0-18.0) g/dL Hct 33.7 L (35.0-51.0) % MCV 89.9 (80.0-94.0) fL MCH 28.7 (27.0-31.0) pg MCHC 31.9 L (33.0-37.0) g/dL RDW 14.2 (11.5-14.5) % Plt Count 143 (130-400) K/uL MPV 10.4 (7.2-11.7) fL Neut % (Auto) 86.3 H (50.0-75.0) % Lymph % (Auto) 5.1 L (20.0-40.0) % Cotton % (Auto) 8.5 (0.0-10.0) % Eos % (Auto) 0.0 (0.0-4.0) % Baso % (Auto) 0.1 (0.0-2.0) % Neut # (Auto) 11.9 H (1.8-7.0) K/uL Lymph # (Auto) 0.7 L (1.0-4.3) K/uL Cotton # (Auto) 1.2 H (0.0-0.8) K/uL Eos # (Auto) 0.0 (0.0-0.7) K/uL Baso # (Auto) 0.0 (0.0-0.2) K/uL Neutrophils % (Manual) 73 (50-75) % Lymphocytes % (Manual) 11 L (20-40) % Reactive Lymphs % 1 H (0-0) % Monocytes % (Manual) 10 (0-10) % Myelocytes % 5 H (0-0) % Platelet Estimate Normal (NORMAL) Hypochromasia (manual) Slight Poikilocytosis (manual Slight Anisocytosis (manual) Slight pCO2 (35-45) mm/Hg pO2 (80-100) mm/Hg HCO3 (21-28) mmol/L ABG pH (7.35-7.45) ABG Total CO2 (22-28) mmol/L ABG O2 Saturation (95-98) % ABG Base Excess (-2.0-3.0) mmol/L Sodium 147 (132-148) mmol/L Potassium 4.6 (3.6-5.2) mmol/L Chloride 114 H (98-107) mmol/L Carbon Dioxide 24 (22-30) mmol/L Anion Gap 14 (10-20) BUN 51 H (9-20) mg/dL Creatinine 1.3 (0.8-1.5) mg/dL Est GFR ( Amer) > 60 Est GFR (Non-Af Amer) 55 POC Glucose (mg/dL) (65-110) mg/dL Random Glucose 201 H (75-110) mg/dL Calcium 8.6 (8.6-10.4) mg/dl Phosphorus 3.3 (2.5-4.5) mg/dL Magnesium 2.5 H (1.6-2.3) mg/dL Total Bilirubin 1.0 (0.2-1.3) mg/dL AST 31 (17-59) U/L ALT 35 (21-72) U/L Alkaline Phosphatase 77 (38-126) U/L Total Protein 6.9 (6.3-8.3) g/dL Albumin 3.6 (3.5-5.0) g/dL Globulin 3.3 (2.2-3.9) gm/dL Albumin/Globulin Ratio 1.1 (1.0-2.1) 03/25/18 03/25/18 03/24/18 Range/Units 04:56 00:10 18:32 WBC (4.8-10.8) K/uL RBC (4.40-5.90) Mil/uL Hgb (12.0-18.0) g/dL Hct (35.0-51.0) % MCV (80.0-94.0) fL MCH (27.0-31.0) pg MCHC (33.0-37.0) g/dL RDW (11.5-14.5) % Plt Count (130-400) K/uL MPV (7.2-11.7) fL Neut % (Auto) (50.0-75.0) % Lymph % (Auto) (20.0-40.0) % Cotton % (Auto) (0.0-10.0) % Eos % (Auto) (0.0-4.0) % Baso % (Auto) (0.0-2.0) % Neut # (Auto) (1.8-7.0) K/uL Lymph # (Auto) (1.0-4.3) K/uL Cotton # (Auto) (0.0-0.8) K/uL Eos # (Auto) (0.0-0.7) K/uL Baso # (Auto) (0.0-0.2) K/uL Neutrophils % (Manual) (50-75) % Lymphocytes % (Manual) (20-40) % Reactive Lymphs % (0-0) % Monocytes % (Manual) (0-10) % Myelocytes % (0-0) % Platelet Estimate (NORMAL) Hypochromasia (manual) Poikilocytosis (manual Anisocytosis (manual) pCO2 (35-45) mm/Hg pO2 (80-100) mm/Hg HCO3 (21-28) mmol/L ABG pH (7.35-7.45) ABG Total CO2 (22-28) mmol/L ABG O2 Saturation (95-98) % ABG Base Excess (-2.0-3.0) mmol/L Sodium (132-148) mmol/L Potassium (3.6-5.2) mmol/L Chloride (98-107) mmol/L Carbon Dioxide (22-30) mmol/L Anion Gap (10-20) BUN (9-20) mg/dL Creatinine (0.8-1.5) mg/dL Est GFR ( Amer) Est GFR (Non-Af Amer) POC Glucose (mg/dL) 260 H 295 H 278 H (65-110) mg/dL Random Glucose (75-110) mg/dL Calcium (8.6-10.4) mg/dl Phosphorus (2.5-4.5) mg/dL Magnesium (1.6-2.3) mg/dL Total Bilirubin (0.2-1.3) mg/dL AST (17-59) U/L ALT (21-72) U/L Alkaline Phosphatase (38-126) U/L Total Protein (6.3-8.3) g/dL Albumin (3.5-5.0) g/dL Globulin (2.2-3.9) gm/dL Albumin/Globulin Ratio (1.0-2.1) 03/24/18 Range/Units 08:32 WBC (4.8-10.8) K/uL RBC (4.40-5.90) Mil/uL Hgb (12.0-18.0) g/dL Hct (35.0-51.0) % MCV (80.0-94.0) fL MCH (27.0-31.0) pg MCHC (33.0-37.0) g/dL RDW (11.5-14.5) % Plt Count (130-400) K/uL MPV (7.2-11.7) fL Neut % (Auto) (50.0-75.0) % Lymph % (Auto) (20.0-40.0) % Cotton % (Auto) (0.0-10.0) % Eos % (Auto) (0.0-4.0) % Baso % (Auto) (0.0-2.0) % Neut # (Auto) (1.8-7.0) K/uL Lymph # (Auto) (1.0-4.3) K/uL Cotton # (Auto) (0.0-0.8) K/uL Eos # (Auto) (0.0-0.7) K/uL Baso # (Auto) (0.0-0.2) K/uL Neutrophils % (Manual) (50-75) % Lymphocytes % (Manual) (20-40) % Reactive Lymphs % (0-0) % Monocytes % (Manual) (0-10) % Myelocytes % (0-0) % Platelet Estimate (NORMAL) Hypochromasia (manual) Poikilocytosis (manual Anisocytosis (manual) pCO2 32 L (35-45) mm/Hg pO2 417 H (80-100) mm/Hg HCO3 23.2 (21-28) mmol/L ABG pH 7.43 (7.35-7.45) ABG Total CO2 22.2 (22-28) mmol/L ABG O2 Saturation 100.0 H (95-98) % ABG Base Excess -2.3 L (-2.0-3.0) mmol/L Sodium (132-148) mmol/L Potassium (3.6-5.2) mmol/L Chloride (98-107) mmol/L Carbon Dioxide (22-30) mmol/L Anion Gap (10-20) BUN (9-20) mg/dL Creatinine (0.8-1.5) mg/dL Est GFR ( Amer) Est GFR (Non-Af Amer) POC Glucose (mg/dL) (65-110) mg/dL Random Glucose (75-110) mg/dL Calcium (8.6-10.4) mg/dl Phosphorus (2.5-4.5) mg/dL Magnesium (1.6-2.3) mg/dL Total Bilirubin (0.2-1.3) mg/dL AST (17-59) U/L ALT (21-72) U/L Alkaline Phosphatase (38-126) U/L Total Protein (6.3-8.3) g/dL Albumin (3.5-5.0) g/dL Globulin (2.2-3.9) gm/dL Albumin/Globulin Ratio (1.0-2.1) Laboratory Results - last 24 hr 03/24/18 03/24/18 03/25/18 08:32 18:32 00:10 WBC RBC Hgb Hct MCV MCH MCHC RDW Plt Count MPV Neut % (Auto) Lymph % (Auto) Cotton % (Auto) Eos % (Auto) Baso % (Auto) Neut # (Auto) Lymph # (Auto) Cotton # (Auto) Eos # (Auto) Baso # (Auto) Neutrophils % (Manual) Lymphocytes % (Manual) Reactive Lymphs % Monocytes % (Manual) Myelocytes % Platelet Estimate Hypochromasia (manual) Poikilocytosis (manual Anisocytosis (manual) pCO2 32 L pO2 417 H HCO3 23.2 ABG pH 7.43 ABG Total CO2 22.2 ABG O2 Saturation 100.0 H ABG Base Excess -2.3 L Sodium Potassium Chloride Carbon Dioxide Anion Gap BUN Creatinine Est GFR ( Amer) Est GFR (Non-Af Amer) POC Glucose (mg/dL) 278 H 295 H Random Glucose Calcium Phosphorus Magnesium Total Bilirubin AST ALT Alkaline Phosphatase Total Protein Albumin Globulin Albumin/Globulin Ratio 03/25/18 03/25/18 03/25/18 04:56 06:26 06:26 WBC 13.8 H RBC 3.74 L Hgb 10.8 L Hct 33.7 L MCV 89.9 MCH 28.7 MCHC 31.9 L RDW 14.2 Plt Count 143 MPV 10.4 Neut % (Auto) 86.3 H Lymph % (Auto) 5.1 L Cotton % (Auto) 8.5 Eos % (Auto) 0.0 Baso % (Auto) 0.1 Neut # (Auto) 11.9 H Lymph # (Auto) 0.7 L Cotton # (Auto) 1.2 H Eos # (Auto) 0.0 Baso # (Auto) 0.0 Neutrophils % (Manual) 73 Lymphocytes % (Manual) 11 L Reactive Lymphs % 1 H Monocytes % (Manual) 10 Myelocytes % 5 H Platelet Estimate Normal Hypochromasia (manual) Slight Poikilocytosis (manual Slight Anisocytosis (manual) Slight pCO2 pO2 HCO3 ABG pH ABG Total CO2 ABG O2 Saturation ABG Base Excess Sodium 147 Potassium 4.6 Chloride 114 H Carbon Dioxide 24 Anion Gap 14 BUN 51 H Creatinine 1.3 Est GFR ( Amer) > 60 Est GFR (Non-Af Amer) 55 POC Glucose (mg/dL) 260 H Random Glucose 201 H Calcium 8.6 Phosphorus Magnesium Total Bilirubin 1.0 AST 31 ALT 35 Alkaline Phosphatase 77 Total Protein 6.9 Albumin 3.6 Globulin 3.3 Albumin/Globulin Ratio 1.1 03/25/18 06:26 WBC RBC Hgb Hct MCV MCH MCHC RDW Plt Count MPV Neut % (Auto) Lymph % (Auto) Cotton % (Auto) Eos % (Auto) Baso % (Auto) Neut # (Auto) Lymph # (Auto) Cotton # (Auto) Eos # (Auto) Baso # (Auto) Neutrophils % (Manual) Lymphocytes % (Manual) Reactive Lymphs % Monocytes % (Manual) Myelocytes % Platelet Estimate Hypochromasia (manual) Poikilocytosis (manual Anisocytosis (manual) pCO2 pO2 HCO3 ABG pH ABG Total CO2 ABG O2 Saturation ABG Base Excess Sodium Potassium Chloride Carbon Dioxide Anion Gap BUN Creatinine Est GFR ( Amer) Est GFR (Non-Af Amer) POC Glucose (mg/dL) Random Glucose Calcium Phosphorus 3.3 Magnesium 2.5 H Total Bilirubin AST ALT Alkaline Phosphatase Total Protein Albumin Globulin Albumin/Globulin Ratio Radiology Impressions: Radiology Impressions Chest X-Ray 03/25/18 07:00 Impression: Interval removal of an endotracheal and NG tube. Moderate to severe venous congestion with diffuse increased interstitial airspace opacities bilaterally. Bilateral hilar prominence. Small nodular density at the right lung base laterally. Small left pleural effusion. Consolidative changes at the left lung base. Calcified lymph node in the left infrahilar region. Enlarged ectatic aorta. Cardiomegaly. Fingerstick Blood Sugar Results: 173 Review of Systems - Review of Systems Systems not reviewed;Unavailable: Acuity of Condition Critical Care Progress Note - Extremities/Vascular Does the Patient have a Melvin Catheter?: Yes Does the Patient need a Melvin Catheter?: Yes Catheter Insertion Criteria: Patient has acute urinary retention or bladder outlet obstruction - Restraints Justification for Restraints: High risk for self extubation, High risk for removing IV access - Prophylaxis GI Prophylaxis GI: PPI - Prophylaxis DVT Prophylaxis DVT: Heparin SQ Assessment/Plan - Assessment and Plan (Free Text) Assessment: 67 year old male with PMH of pulmonary fibrosis, DM, HTN, and BPH admitted to ICU s/p cardiac arrest (Vfib/Vtach/NSTEMI). Pending cardiac cath with cardiac team Neuro AMS, likely anoxic brain injury CT head (03-20) shows 9x11 mm R MCA aneurysm; no subarachnoid hemorrhage Pulm extubated on 03-24 maintain spo2>92 duoneb solumedrol CV cardiac cath showed no severe occlusions possible defibrillator prior to dc aspirin Lopressor-held in setting of npo GI no active issues; Peg tube placement in AM; Patient NPO Insulin as needed; Accuchecks q6h Renal no active issues; Cr stable; no need for fluids Repeat labs in AM ID Zosyn renal dose cx all negative white count trending down, afebrile DVT ppx: Heparin GI ppx: protonix Disposition: cardiac cath showed no blockages; patient extubated; pending neuro eval for possible anoxic brain injury; PGY-1 Kae Wall Medical Managment discussed with Dr. Nogueira <Milad Nogueira - Last Filed: 03/25/18 20:15> CCU Objective - Vital Signs / Intake & Output Vital Signs (Last 4 hours): Vital Signs Pulse Resp BP Pulse Ox 03/25/18 18:01 95 H 19 159/94 H 99 03/25/18 18:00 90 25 H 99 03/25/18 17:01 77 26 H 155/93 H 97 03/25/18 17:00 75 22 97 03/25/18 16:35 80 14 167/105 H 97 Intake and Output (Last 8hrs): Intake & Output 03/25/18 03/25/18 03/25/18 06:59 14:59 22:59 Intake Total 397.5 262.5 50 Output Total 1000 1000 Balance -602.5 262.5 -950 Weight 163 lb Intake: Intake, IV Amount 397.5 262.5 50 Right Hand 397.5 262.5 50 Oral 0 0 Output: Urine 1000 1000 Straight 1000 Urethral (Melvin) 1000 Other: # Bowel Movements 1 - Medications Active Medications: Active Medications Generic Name Dose Route Start Last Admin Trade Name Freq PRN Reason Stop Dose Admin Albuterol/Ipratropium 3 ml 03/20/18 14:00 03/25/18 13:34 Duoneb 3 Mg/0.5 Mg (3 Ml) Ud INH 3 ml RQ6 [facility] Administration Aspirin 300 mg 03/25/18 10:00 03/25/18 11:00 Aspirin Supp UT 300 mg DAILY [facility] Administration Heparin Sodium (Porcine) 5,000 units 03/25/18 14:00 03/25/18 13:15 Heparin SC 5,000 units Q8 [facility] Administration Piperacillin Sod/Tazobactam Sod 2.25 gm in 50 mls @ 100 mls/hr 03/21/18 19:00 03/25/18 18:00 Zosyn 2.25 Gm Iv Premix IVPB 100 mls/hr Q6H [facility] Administration Protocol Sodium Chloride 500 mls @ 42.5 mls/hr 03/24/18 12:45 03/25/18 12:00 Sodium Chloride 0.9% IV Not Given .[id number] [facility] Insulin Aspart 0 unit 03/19/18 20:00 03/25/18 18:25 Novolog SC Not Given Q6 [facility] Protocol Methylprednisolone 40 mg 03/22/18 10:00 03/25/18 10:00 Solu-Medrol IVP 40 mg Q12 [facility] Administration Metoprolol Tartrate 12.5 mg 03/24/18 11:15 03/25/18 17:19 Lopressor PO Not Given BID [facility] Pantoprazole Sodium 40 mg 03/20/18 10:00 03/25/18 10:00 Protonix Inj IVP 40 mg DAILY [facility] Administration - Patient Studies Lab Studies: Microbiology Studies 03/19/18 20:30 Blood Culture - Final Blood NO GROWTH AFTER 5 DAYS Gram Stain - Final TEST NOT PERFORMED 03/19/18 21:10 Blood Culture - Final Blood NO GROWTH AFTER 5 DAYS Gram Stain - Final TEST NOT PERFORMED Lab Studies 01/01/0103/25/18 03/25/18 Range/Units 17:51 13:21 11:23 WBC (4.8-10.8) K/uL RBC (4.40-5.90) Mil/uL Hgb (12.0-18.0) g/dL Hct (35.0-51.0) % MCV (80.0-94.0) fL MCH (27.0-31.0) pg MCHC (33.0-37.0) g/dL RDW (11.5-14.5) % Plt Count (130-400) K/uL MPV (7.2-11.7) fL Neut % (Auto) (50.0-75.0) % Lymph % (Auto) (20.0-40.0) % Cotton % (Auto) (0.0-10.0) % Eos % (Auto) (0.0-4.0) % Baso % (Auto) (0.0-2.0) % Neut # (Auto) (1.8-7.0) K/uL Lymph # (Auto) (1.0-4.3) K/uL Cotton # (Auto) (0.0-0.8) K/uL Eos # (Auto) (0.0-0.7) K/uL Baso # (Auto) (0.0-0.2) K/uL Neutrophils % (Manual) (50-75) % Lymphocytes % (Manual) (20-40) % Reactive Lymphs % (0-0) % Monocytes % (Manual) (0-10) % Myelocytes % (0-0) % Platelet Estimate (NORMAL) Hypochromasia (manual) Poikilocytosis (manual Anisocytosis (manual) Sodium (132-148) mmol/L Potassium (3.6-5.2) mmol/L Chloride (98-107) mmol/L Carbon Dioxide (22-30) mmol/L Anion Gap (10-20) BUN (9-20) mg/dL Creatinine (0.8-1.5) mg/dL Est GFR ( Amer) Est GFR (Non-Af Amer) POC Glucose (mg/dL) 248 H 146 H (65-110) mg/dL Random Glucose (75-110) mg/dL Calcium (8.6-10.4) mg/dl Phosphorus (2.5-4.5) mg/dL Magnesium (1.6-2.3) mg/dL Total Bilirubin (0.2-1.3) mg/dL AST (17-59) U/L ALT (21-72) U/L Alkaline Phosphatase (38-126) U/L Total Protein (6.3-8.3) g/dL Albumin (3.5-5.0) g/dL Globulin (2.2-3.9) gm/dL Albumin/Globulin Ratio (1.0-2.1) Urine Color Yellow (YELLOW) Urine Clarity Clear (Clear) Urine pH 5.0 (5.0-8.0) Ur Specific Hodges 1.024 (1.003-1.030) Urine Protein 1+ H (NEGATIVE) mg/dL Urine Glucose (UA) 1+ H (Normal) mg/dL Urine Ketones Negative (NEGATIVE) mg/dL Urine Blood 1+ H (NEGATIVE) Urine Nitrate Negative (NEGATIVE) Urine Bilirubin Negative (NEGATIVE) Urine Urobilinogen Normal (0.2-1.0) mg/dL Ur Leukocyte Esterase Neg (Negative) Asher/uL Urine WBC (Auto) 3 (0-5) /hpf Urine RBC (Auto) 2 (0-3) /hpf Rheumatoid Factor IgG (<=6) U Rheumatoid Factor IgA (<=6) U Rheumatoid Factor IgM (<=6) U 03/25/18 03/25/18 03/25/18 Range/Units 06:26 06:26 06:26 WBC 13.8 H (4.8-10.8) K/uL RBC 3.74 L (4.40-5.90) Mil/uL Hgb 10.8 L (12.0-18.0) g/dL Hct 33.7 L (35.0-51.0) % MCV 89.9 (80.0-94.0) fL MCH 28.7 (27.0-31.0) pg MCHC 31.9 L (33.0-37.0) g/dL RDW 14.2 (11.5-14.5) % Plt Count 143 (130-400) K/uL MPV 10.4 (7.2-11.7) fL Neut % (Auto) 86.3 H (50.0-75.0) % Lymph % (Auto) 5.1 L (20.0-40.0) % Cotton % (Auto) 8.5 (0.0-10.0) % Eos % (Auto) 0.0 (0.0-4.0) % Baso % (Auto) 0.1 (0.0-2.0) % Neut # (Auto) 11.9 H (1.8-7.0) K/uL Lymph # (Auto) 0.7 L (1.0-4.3) K/uL Cotton # (Auto) 1.2 H (0.0-0.8) K/uL Eos # (Auto) 0.0 (0.0-0.7) K/uL Baso # (Auto) 0.0 (0.0-0.2) K/uL Neutrophils % (Manual) 73 (50-75) % Lymphocytes % (Manual) 11 L (20-40) % Reactive Lymphs % 1 H (0-0) % Monocytes % (Manual) 10 (0-10) % Myelocytes % 5 H (0-0) % Platelet Estimate Normal (NORMAL) Hypochromasia (manual) Slight Poikilocytosis (manual Slight Anisocytosis (manual) Slight Sodium 147 (132-148) mmol/L Potassium 4.6 (3.6-5.2) mmol/L Chloride 114 H (98-107) mmol/L Carbon Dioxide 24 (22-30) mmol/L Anion Gap 14 (10-20) BUN 51 H (9-20) mg/dL Creatinine 1.3 (0.8-1.5) mg/dL Est GFR ( Amer) > 60 Est GFR (Non-Af Amer) 55 POC Glucose (mg/dL) (65-110) mg/dL Random Glucose 201 H (75-110) mg/dL Calcium 8.6 (8.6-10.4) mg/dl Phosphorus 3.3 (2.5-4.5) mg/dL Magnesium 2.5 H (1.6-2.3) mg/dL Total Bilirubin 1.0 (0.2-1.3) mg/dL AST 31 (17-59) U/L ALT 35 (21-72) U/L Alkaline Phosphatase 77 (38-126) U/L Total Protein 6.9 (6.3-8.3) g/dL Albumin 3.6 (3.5-5.0) g/dL Globulin 3.3 (2.2-3.9) gm/dL Albumin/Globulin Ratio 1.1 (1.0-2.1) Urine Color (YELLOW) Urine Clarity (Clear) Urine pH (5.0-8.0) Ur Specific Hodges (1.003-1.030) Urine Protein (NEGATIVE) mg/dL Urine Glucose (UA) (Normal) mg/dL Urine Ketones (NEGATIVE) mg/dL Urine Blood (NEGATIVE) Urine Nitrate (NEGATIVE) Urine Bilirubin (NEGATIVE) Urine Urobilinogen (0.2-1.0) mg/dL Ur Leukocyte Esterase (Negative) Asher/uL Urine WBC (Auto) (0-5) /hpf Urine RBC (Auto) (0-3) /hpf Rheumatoid Factor IgG (<=6) U Rheumatoid Factor IgA (<=6) U Rheumatoid Factor IgM (<=6) U 03/25/18 03/25/18 03/20/18 Range/Units 04:56 00:10 08:24 WBC (4.8-10.8) K/uL RBC (4.40-5.90) Mil/uL Hgb (12.0-18.0) g/dL Hct (35.0-51.0) % MCV (80.0-94.0) fL MCH (27.0-31.0) pg MCHC (33.0-37.0) g/dL RDW (11.5-14.5) % Plt Count (130-400) K/uL MPV (7.2-11.7) fL Neut % (Auto) (50.0-75.0) % Lymph % (Auto) (20.0-40.0) % Cotton % (Auto) (0.0-10.0) % Eos % (Auto) (0.0-4.0) % Baso % (Auto) (0.0-2.0) % Neut # (Auto) (1.8-7.0) K/uL Lymph # (Auto) (1.0-4.3) K/uL Cotton # (Auto) (0.0-0.8) K/uL Eos # (Auto) (0.0-0.7) K/uL Baso # (Auto) (0.0-0.2) K/uL Neutrophils % (Manual) (50-75) % Lymphocytes % (Manual) (20-40) % Reactive Lymphs % (0-0) % Monocytes % (Manual) (0-10) % Myelocytes % (0-0) % Platelet Estimate (NORMAL) Hypochromasia (manual) Poikilocytosis (manual Anisocytosis (manual) Sodium (132-148) mmol/L Potassium (3.6-5.2) mmol/L Chloride (98-107) mmol/L Carbon Dioxide (22-30) mmol/L Anion Gap (10-20) BUN (9-20) mg/dL Creatinine (0.8-1.5) mg/dL Est GFR ( Amer) Est GFR (Non-Af Amer) POC Glucose (mg/dL) 260 H 295 H (65-110) mg/dL Random Glucose (75-110) mg/dL Calcium (8.6-10.4) mg/dl Phosphorus (2.5-4.5) mg/dL Magnesium (1.6-2.3) mg/dL Total Bilirubin (0.2-1.3) mg/dL AST (17-59) U/L ALT (21-72) U/L Alkaline Phosphatase (38-126) U/L Total Protein (6.3-8.3) g/dL Albumin (3.5-5.0) g/dL Globulin (2.2-3.9) gm/dL Albumin/Globulin Ratio (1.0-2.1) Urine Color (YELLOW) Urine Clarity (Clear) Urine pH (5.0-8.0) Ur Specific Hodges (1.003-1.030) Urine Protein (NEGATIVE) mg/dL Urine Glucose (UA) (Normal) mg/dL Urine Ketones (NEGATIVE) mg/dL Urine Blood (NEGATIVE) Urine Nitrate (NEGATIVE) Urine Bilirubin (NEGATIVE) Urine Urobilinogen (0.2-1.0) mg/dL Ur Leukocyte Esterase (Negative) Asher/uL Urine WBC (Auto) (0-5) /hpf Urine RBC (Auto) (0-3) /hpf Rheumatoid Factor IgG <5 (<=6) U Rheumatoid Factor IgA <5 (<=6) U Rheumatoid Factor IgM <5 (<=6) U Laboratory Results - last 24 hr 03/20/18 03/25/18 03/25/18 08:24 00:10 04:56 WBC RBC Hgb Hct MCV MCH MCHC RDW Plt Count MPV Neut % (Auto) Lymph % (Auto) Cotton % (Auto) Eos % (Auto) Baso % (Auto) Neut # (Auto) Lymph # (Auto) Cotton # (Auto) Eos # (Auto) Baso # (Auto) Neutrophils % (Manual) Lymphocytes % (Manual) Reactive Lymphs % Monocytes % (Manual) Myelocytes % Platelet Estimate Hypochromasia (manual) Poikilocytosis (manual Anisocytosis (manual) Sodium Potassium Chloride Carbon Dioxide Anion Gap BUN Creatinine Est GFR ( Amer) Est GFR (Non-Af Amer) POC Glucose (mg/dL) 295 H 260 H Random Glucose Calcium Phosphorus Magnesium Total Bilirubin AST ALT Alkaline Phosphatase Total Protein Albumin Globulin Albumin/Globulin Ratio Urine Color Urine Clarity Urine pH Ur Specific Hodges Urine Protein Urine Glucose (UA) Urine Ketones Urine Blood Urine Nitrate Urine Bilirubin Urine Urobilinogen Ur Leukocyte Esterase Urine WBC (Auto) Urine RBC (Auto) Rheumatoid Factor IgG <5 Rheumatoid Factor IgA <5 Rheumatoid Factor IgM <5 03/25/18 03/25/18 03/25/18 06:26 06:26 06:26 WBC 13.8 H RBC 3.74 L Hgb 10.8 L Hct 33.7 L MCV 89.9 MCH 28.7 MCHC 31.9 L RDW 14.2 Plt Count 143 MPV 10.4 Neut % (Auto) 86.3 H Lymph % (Auto) 5.1 L Cotton % (Auto) 8.5 Eos % (Auto) 0.0 Baso % (Auto) 0.1 Neut # (Auto) 11.9 H Lymph # (Auto) 0.7 L Cotton # (Auto) 1.2 H Eos # (Auto) 0.0 Baso # (Auto) 0.0 Neutrophils % (Manual) 73 Lymphocytes % (Manual) 11 L Reactive Lymphs % 1 H Monocytes % (Manual) 10 Myelocytes % 5 H Platelet Estimate Normal Hypochromasia (manual) Slight Poikilocytosis (manual Slight Anisocytosis (manual) Slight Sodium 147 Potassium 4.6 Chloride 114 H Carbon Dioxide 24 Anion Gap 14 BUN 51 H Creatinine 1.3 Est GFR ( Amer) > 60 Est GFR (Non-Af Amer) 55 POC Glucose (mg/dL) Random Glucose 201 H Calcium 8.6 Phosphorus 3.3 Magnesium 2.5 H Total Bilirubin 1.0 AST 31 ALT 35 Alkaline Phosphatase 77 Total Protein 6.9 Albumin 3.6 Globulin 3.3 Albumin/Globulin Ratio 1.1 Urine Color Urine Clarity Urine pH Ur Specific Hodges Urine Protein Urine Glucose (UA) Urine Ketones Urine Blood Urine Nitrate Urine Bilirubin Urine Urobilinogen Ur Leukocyte Esterase Urine WBC (Auto) Urine RBC (Auto) Rheumatoid Factor IgG Rheumatoid Factor IgA Rheumatoid Factor IgM 03/25/18 03/25/18 03/25/18 11:23 13:21 17:51 WBC RBC Hgb Hct MCV MCH MCHC RDW Plt Count MPV Neut % (Auto) Lymph % (Auto) Cotton % (Auto) Eos % (Auto) Baso % (Auto) Neut # (Auto) Lymph # (Auto) Cotton # (Auto) Eos # (Auto) Baso # (Auto) Neutrophils % (Manual) Lymphocytes % (Manual) Reactive Lymphs % Monocytes % (Manual) Myelocytes % Platelet Estimate Hypochromasia (manual) Poikilocytosis (manual Anisocytosis (manual) Sodium Potassium Chloride Carbon Dioxide Anion Gap BUN Creatinine Est GFR ( Amer) Est GFR (Non-Af Amer) POC Glucose (mg/dL) 146 H 248 H Random Glucose Calcium Phosphorus Magnesium Total Bilirubin AST ALT Alkaline Phosphatase Total Protein Albumin Globulin Albumin/Globulin Ratio Urine Color Yellow Urine Clarity Clear Urine pH 5.0 Ur Specific Hodges 1.024 Urine Protein 1+ H Urine Glucose (UA) 1+ H Urine Ketones Negative Urine Blood 1+ H Urine Nitrate Negative Urine Bilirubin Negative Urine Urobilinogen Normal Ur Leukocyte Esterase Neg Urine WBC (Auto) 3 Urine RBC (Auto) 2 Rheumatoid Factor IgG Rheumatoid Factor IgA Rheumatoid Factor IgM Radiology Impressions: Radiology Impressions Chest X-Ray 03/25/18 07:00 Impression: Interval removal of an endotracheal and NG tube. Moderate to severe venous congestion with diffuse increased interstitial airspace opacities bilaterally. Bilateral hilar prominence. Small nodular density at the right lung base laterally. Small left pleural effusion. Consolidative changes at the left lung base. Calcified lymph node in the left infrahilar region. Enlarged ectatic aorta. Cardiomegaly. Attending/Attestation - Attestation I have personally seen and examined this patient.: Yes I have fully participated in the care of the patient.: Yes I have reviewed all pertinent clinical information: Yes Notes (Text): 03/25/18 20:08 Today: March The Patient was seen and examined at the bedside, Medical records reviewed, and management issues were discussed and formulated with the house staff. I have reviewed all the relevant clinical, laboratory, hemodynamic, radiographic data and medications Events reviewed Pain issues, skin care, head of the bed elevation, glycemic control were addressed. Agree with above resident's assessment and treatment plans of care as transcribed in Dr. Wall's note. Critically ill patient with Cardiac arrest, acute hypoxemic respiratory failure, due to pulmonary fibrosis. successfully extubated. Repeat Head CT scan and also EEG in AM to follow cerebral edema Continue IV Zosyn for aspiration pneumonia Acute SC, Status post cardiac cath Cardiac medication as per cardiology Patient is off heparin drip and Plavix Amiodarone discontinued NPO, PEG tube placement in AM Discussed with the family in details diagnosis, treatment plans and alternatives, GI PPX: Protonix 40 mg PO DVT PPX: SQ Heparin Code status: Full code Total critical care time 45 minutes
[2018-03-25 13:35] LABS: URINE BILIRUBIN NEGATIVE (NEGATIVE); URINE BLOOD 1+ (NEGATIVE); URINE CLARITY Clear (Clear); URINE COLOR Yellow (YELLOW); URINE GLUCOSE (UA) 1+ mg/dL (Normal); URINE LEUKOCYTE ESTERASE NEG Leu/uL (Negative); URINE PROTEIN 1+ mg/dL (NEGATIVE); URINE UROBILINOGEN NORMAL mg/dL (0.2-1.0)
[2018-03-25] MEDS ORDERED: DiphenhydrAMINE 50 mg/ml Inj IVP STA (17:46)
--- NOTE | 2018-03-25 17:59 | CP.PCM.PN ---
Subjective - Date & Time of Evaluation Date of Evaluation: 03/25/18 Time of Evaluation: 17:56 - Subjective Subjective: pt is extubated, restless, agitated. Lying flat without dyspnea. Objective - Vital Signs/Intake and Output Vital Signs (last 24 hours): Temp Pulse Resp BP Pulse Ox 98.7 F 77 26 H 155/93 H 97 03/25/18 16:00 03/25/18 17:01 03/25/18 17:01 03/25/18 17:01 03/25/18 17:01 Intake and Output: 03/25/18 03/25/18 06:59 18:59 Intake Total 567.5 42.5 Output Total 1000 Balance -432.5 42.5 - Medications Medications: Current Medications Albuterol/Ipratropium (Duoneb 3 Mg/0.5 Mg (3 Ml) Ud) 3 ml INH RQ6 [facility] Last Admin: 03/25/18 13:34 Dose: 3 ml Aspirin (Aspirin Supp) 300 mg ME DAILY [facility] Last Admin: 03/25/18 11:00 Dose: 300 mg Heparin Sodium (Porcine) (Heparin) 5,000 units SC Q8 [facility] Last Admin: 03/25/18 13:15 Dose: 5,000 units Piperacillin Sod/Tazobactam Sod (Zosyn 2.25 Gm Iv Premix) 2.25 gm in 50 mls @ 100 mls/hr IVPB Q6H [facility]; Protocol Last Admin: 03/25/18 13:00 Dose: 100 mls/hr Sodium Chloride (Sodium Chloride 0.9%) 500 mls @ 42.5 mls/hr IV .[id number] [facility] Last Admin: 03/25/18 12:00 Dose: Not Given Insulin Aspart (Novolog) 0 unit SC Q6 DOUG; Protocol Last Admin: 03/25/18 12:00 Dose: Not Given Methylprednisolone (Solu-Medrol) 40 mg IVP Q12 [facility] Last Admin: 03/25/18 10:00 Dose: 40 mg Metoprolol Tartrate (Lopressor) 12.5 mg PO BID [facility] Last Admin: 03/25/18 17:19 Dose: Not Given Pantoprazole Sodium (Protonix Inj) 40 mg IVP DAILY [facility] Last Admin: 03/25/18 10:00 Dose: 40 mg - Labs Labs: 03/25/18 06:26 03/25/18 06:26 PT 12.9 SECONDS (9.7-12.2) H 03/21/18 04:41 INR 1.2 03/21/18 04:41 APTT 51 SECONDS (21-34) H 03/24/18 06:35 - Constitutional Appears: Chronically Ill - Eye Exam Eye Exam: EOMI - ENT Exam ENT Exam: Mucous Membranes Moist - Neck Exam Neck Exam: Full ROM - Respiratory Exam Additional comments: diffuse crackles bilateral - Cardiovascular Exam Cardiovascular Exam: REGULAR RHYTHM - GI/Abdominal Exam GI & Abdominal Exam: Normal Bowel Sounds - Exam External exam: NORMAL EXTERNAL EXAM - Extremities Exam Extremities Exam: Normal Inspection - Neurological Exam Neurological Exam: Altered - Skin Skin Exam: Normal Color Assessment and Plan - Assessment and Plan (Free Text) Assessment: 1. S/P respiratory arrest, leaading to acute KS. Max TNi of 12, and normal overall LVEF, non-obstructive cad, and no additional intervention was done. 2. BP has been high: when peg is in, then start beta karen for hnt and post mi 3. start statin when peg is in 4. PCWP mildly elevated during cath.
[2018-03-25 21:17] LABS: INFLUENZA TYPE A AB 1:32 titer (<1:8); INFLUENZA TYPE B AB <1:8 titer (<1:8)
[2018-03-26] MEDS: (Novolog) Insulin Aspart, Recombinant 100 u/ml 10 ml vial SC SCH ×4 (00:15→18:26)
[2018-03-26] MEDS: Piperacill/Tazo 2.25gm in Dex 2.25 GM/50 ML BAG IVPB SCH ×3 (00:15→14:13)
--- NOTE | 2018-03-26 00:58 | PN ---
DATE: 03/25/2018 SUBJECTIVE: The patient remains lethargic, in spite, he is off the sedation. He was extubated on 03/24/2018. His saturation still is fine, on oxygen. The patient keeps moving his neck from [id number], seems like something is bothering him but he is nonverbal. I am not sure if he has this jerky movement, because of anoxia or other etiology. OBJECTIVE: VITAL SIGNS: Temperature 98.7, pulse is 75, respirations are 22, and saturation 97%. NECK: Supple. LUNGS: Clear. GENERAL: He is lying flat, however. HEART: S1, S2 regular. LUNGS: Clear. No crackles or rales heard. Occasional crackles bilaterally. ABDOMEN: Soft, nontender. No guarding. No rigidity present. EXTREMITIES: Have no edema. Labs are noted. White count is 13.8, hemoglobin 10.8, hematocrit 33.7, platelet. His neutrophils are 86.3, lymphocytes are 11. Serology: Legionella, Mycoplasma, Streptococcus pneumoniae, all came negative. His rheumatoid factor is pending and JENNIFER is negative. Toxicology was done. Drug screen was negative. His chemistry shows BUN is 51, creatinine is 1.3. Sodium still is 157. There was a blood gas done which was done yesterday 7.32, CO2 is 35. Oxygen saturations 85.7. Potassium was low on 2.4 but actual potassium is 4.6. His chest x-ray, actually, they did a head CT right now; and his chest x-ray shows interval removal of ET tube, moderate to severe venous congestion, and diffuse increased interstitial air space opacities bilaterally, bilateral hilar prominence, small nodular density at the right lung base, small left pleural effusion, consolidative changes in the left lung base. Calcified lymph node in the left infrahilar region and large ectatic aorta, cardiomegaly, so he does have infiltrate on the left base, so we will continue with Zosyn, and we will look into the medication list, and he is on Zosyn 2.25 every 6 hours. We will continue that at this time, and we will monitor. He had a head CT just now, the results of which are pending. Rizwana Reddy MD [facility] # [id number]
[2018-03-26] MEDS: Albuterol-Ipratrop 3 mg / 0.5 (3 ml) UD INH SCH ×4 (02:56→20:00)
[2018-03-26 06:43] LABS: BASO % 0.1 % (0.0-2.0); HEMOGLOBIN 11.3 g/dL (12.0-18.0); LYMPH # 0.6 K/uL (1.0-4.3); LYMPH % 4.1 % (20.0-40.0); MEAN CELL VOLUME 89.8 fL (80.0-94.0); MEAN CORPUSCULAR HEMOGLOBIN 28.9 pg (27.0-31.0); MEAN CORPUSCULAR HGB CONC 32.1 g/dL (33.0-37.0); MEAN PLATELET VOLUME 10.2 fL (7.2-11.7); MONO # 0.8 K/uL (0.0-0.8); NEUT # 14.3 K/uL (1.8-7.0); NEUT % 90.8 % (50.0-75.0); PLATELET COUNT 144 K/uL (130-400); RBC 3.93 Mil/uL (4.40-5.90); RED CELL DISTRIBUTION WIDTH 14.1 % (11.5-14.5); WHITE BLOOD COUNT 15.7 K/uL (4.8-10.8)
[2018-03-26 07:13] LABS: ALB/GLOB RATIO 1.1 (1.0-2.1); ALBUMIN 3.5 g/dL (3.5-5.0); ALT/SGPT 39 U/L (21-72); AST/SGOT 26 U/L (17-59); BLOOD UREA NITROGEN 49 mg/dL (9-20); GFR NON-AFRICAN AMERICAN 55
--- NOTE | 2018-03-26 07:29 | CT ---
Date of service: 03/25/2018 PROCEDURE: CT HEAD WITHOUT CONTRAST. HISTORY: s/p intubation; cardiac arrest COMPARISON: 03/22/2018 TECHNIQUE: Axial computed tomography images were obtained through the head/brain without intravenous contrast. Radiation dose: Total exam DLP = 1488.69 mGy-cm. This CT exam was performed using one or more of the following dose reduction techniques: Automated exposure control, adjustment of the mA and/or kV according to patient size, and/or use of iterative reconstruction technique. FINDINGS: HEMORRHAGE: No intracranial hemorrhage. BRAIN: No mass effect or edema. Scattered focal lucencies in the subcortical and periventricular white matter suggestive for chronic microvascular ischemic change. Generalized parenchymal atrophy.. VENTRICLES: Unremarkable. No hydrocephalus. CALVARIUM: Unremarkable. PARANASAL SINUSES: Mucosal retention cyst and or polyp measuring 1.5 centimeters in the right maxillary sinus. MASTOID AIR CELLS: Partial opacification of the left mastoid air cells. OTHER FINDINGS: Limited study secondary to suboptimal patient positioning and technique. 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 Further evaluation with CT angiogram of the head and neck is recommended for further evaluation. Additional etiologies are not excluded. In addition, correlation with MRI would also be helpful if clinically indicated. IMPRESSION: Limited study secondary to suboptimal patient positioning and technique. 1. 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 Further evaluation with CT angiogram of the head and neck is recommended for further evaluation. Additional etiologies are not excluded. In addition, correlation with MRI would also be helpful if clinically indicated. 2. Sinus mucosal disease as above. A preliminary report was generated at 7:43 p.m. on 03/25/[address] Jasen Hong from [employer].
[2018-03-26] MEDS ORDERED: Metoprolol 1 mg/ml Inj IVP PRN (08:25)
[2018-03-26 09:18] LABS: BANDS 3 % (0-2); LYMPHOCYTE 3 % (20-40); MONOCYTE 1 % (0-10); PLATELET ESTIMATE NORMAL (NORMAL); TOTAL CELLS COUNTED 100
[2018-03-26 09:27] LABS: MYELOCYTE 3 % (0-0)
[2018-03-26 09:28] LABS: ANISOCYTOSIS SLIGHT; HYPOCHROMIC SLIGHT; NEUTROPHIL 89 % (50-75); POIKILOCYTOSIS SLIGHT
[2018-03-26] MEDS: Metoprolol 1 mg/ml Inj IVP PRN ×2 (09:41→18:27)
[2018-03-26] MEDS: MethylPREDNISolone 40 mg Vial IVP SCH ×2 (09:42→23:04)
--- NOTE | 2018-03-26 10:46 | CP.CCUPN ---
<Kae Wall - Last Filed: 03/26/18 10:36> CCU Subjective - Physician Review Subjective (Free Text): Critical Care Progress Note for Dr. Mejia's service Patient seen and examined at bedside. Limited ROS as patient is non communicative. Concern for anoxic brain injury is high. Pending EEG with neuro team for possible seizure activity. Critical Care Time Spent (in minutes): 35 CCU Objective - Vital Signs / Intake & Output Intake and Output (Last 8hrs): Intake & Output 03/25/18 03/26/18 03/26/18 22:59 06:59 14:59 Intake Total 220.0 340.0 Output Total 1190 520 Balance -970.0 -180.0 Weight 162 lb Intake: Intake, IV Amount 220.0 340.0 Right Hand 220.0 340.0 Oral 0 Output: Urine 1190 520 Urethral (Melvin) 1190 520 Other: # Bowel Movements 1 - Physical Exam Physical Exam Limitations: Positive for: Altered Mental Status Head: Positive for: Atraumatic, Normocephalic Pupils: Positive for: PERRL Extroacular Muscles: Positive for: EOMI Mouth: Positive for: Dry, Other (lip ulcer noted; roof of inside of mouth has dried blood) Neck: Positive for: Normal Range of Motion Respiratory/Chest: Positive for: Clear to Auscultation, Good Air Exchange. Negative for: Accessory Muscle Use Cardiovascular: Positive for: Regular Rate and Rhythm, Normal S1, S2 Abdomen: Positive for: Normal Bowel Sounds. Negative for: Tenderness, Distention, Peritoneal Signs Upper Extremity: Positive for: Normal Inspection. Negative for: Cyanosis, Edema Lower Extremity: Positive for: Normal Inspection. Negative for: Edema Neurological: Negative for: GCS=15 Skin: Positive for: Dry, Normal Color Psychiatric: Positive for: Other (AMS). Negative for: Alert, Oriented x 3 - Medications Active Medications: Active Medications Generic Name Dose Route Start Last Admin Trade Name Freq PRN Reason Stop Dose Admin Albuterol/Ipratropium 3 ml 03/20/18 14:00 03/26/18 08:48 Duoneb 3 Mg/0.5 Mg (3 Ml) Ud INH Not Given RQ6 DOUG Aspirin 300 mg 03/25/18 10:00 03/25/18 11:00 Aspirin Supp NM 300 mg DAILY DOUG Administration Heparin Sodium (Porcine) 5,000 units 03/25/18 14:00 03/26/18 06:25 Heparin SC 5,000 units Q8 DOUG Administration Piperacillin Sod/Tazobactam Sod 2.25 gm in 50 mls @ 100 mls/hr 03/21/18 19:00 03/26/18 06:24 Zosyn 2.25 Gm Iv Premix IVPB 100 mls/hr Q6H [facility] Administration Protocol Insulin Aspart 0 unit 03/19/18 20:00 03/26/18 06:14 Novolog SC Not Given Q6 [facility] Protocol Methylprednisolone 40 mg 03/22/18 10:00 03/26/18 09:42 Solu-Medrol IVP 40 mg Q12 [facility] Administration Metoprolol Tartrate 12.5 mg 03/24/18 11:15 03/26/18 09:42 Lopressor PO Not Given BID [facility] Metoprolol Tartrate 5 mg 03/26/18 08:46 03/26/18 09:41 Lopressor IVP 5 mg Q6 PRN Administration elevated blood pressure Oseltamivir Phosphate 75 mg 03/26/18 10:00 Tamiflu Cap PO BID [facility] Protocol Pantoprazole Sodium 40 mg 03/20/18 10:00 03/25/18 10:00 Protonix Inj IVP 40 mg DAILY [facility] Administration Rosuvastatin Calcium 5 mg 03/26/18 22:00 Crestor PO HS [facility] - Patient Studies Lab Studies: Lab Studies 03/26/18 03/26/18 03/26/18 Range/Units 06:40 06:40 06:40 WBC 15.7 H (4.8-10.8) K/uL RBC 3.93 L (4.40-5.90) Mil/uL Hgb 11.3 L (12.0-18.0) g/dL Hct 35.3 (35.0-51.0) % MCV 89.8 (80.0-94.0) fL MCH 28.9 (27.0-31.0) pg MCHC 32.1 L (33.0-37.0) g/dL RDW 14.1 (11.5-14.5) % Plt Count 144 (130-400) K/uL MPV 10.2 (7.2-11.7) fL Neut % (Auto) 90.8 H (50.0-75.0) % Lymph % (Auto) 4.1 L (20.0-40.0) % [place] % (Auto) 5.0 (0.0-10.0) % Eos % (Auto) 0.0 (0.0-4.0) % Baso % (Auto) 0.1 (0.0-2.0) % Neut # (Auto) 14.3 H (1.8-7.0) K/uL Lymph # (Auto) 0.6 L (1.0-4.3) K/uL L[place] # (Auto) 0.8 (0.0-0.8) K/uL Eos # (Auto) 0.0 (0.0-0.7) K/uL Baso # (Auto) 0.0 (0.0-0.2) K/uL Neutrophils % (Manual) 89 H (50-75) % Band Neutrophils % 3 H (0-2) % Lymphocytes % (Manual) 3 L (20-40) % Monocytes % (Manual) 1 (0-10) % Myelocytes % 3 H (0-0) % Platelet Estimate Normal (NORMAL) Hypochromasia (manual) Slight Poikilocytosis (manual Slight Anisocytosis (manual) Slight Sodium 152 H (132-148) mmol/L Potassium 4.1 (3.6-5.2) mmol/L Chloride 120 H (98-107) mmol/L Carbon Dioxide 27 (22-30) mmol/L Anion Gap 9 L (10-20) BUN 49 H (9-20) mg/dL Creatinine 1.3 (0.8-1.5) mg/dL Est GFR ( Amer) > 60 Est GFR (Non-Af Amer) 55 POC Glucose (mg/dL) (65-110) mg/dL Random Glucose 160 H D (75-110) mg/dL Calcium 9.0 (8.6-10.4) mg/dl Phosphorus 3.0 (2.5-4.5) mg/dL Magnesium 2.4 H (1.6-2.3) mg/dL Total Bilirubin 1.0 (0.2-1.3) mg/dL AST 26 (17-59) U/L ALT 39 (21-72) U/L Alkaline Phosphatase 90 (38-126) U/L Total Protein 6.6 (6.3-8.3) g/dL Albumin 3.5 (3.5-5.0) g/dL Globulin 3.1 (2.2-3.9) gm/dL Albumin/Globulin Ratio 1.1 (1.0-2.1) Urine Color (YELLOW) Urine Clarity (Clear) Urine pH (5.0-8.0) Ur Specific Hayes (1.003-1.030) Urine Protein (NEGATIVE) mg/dL Urine Glucose (UA) (Normal) mg/dL Urine Ketones (NEGATIVE) mg/dL Urine Blood (NEGATIVE) Urine Nitrate (NEGATIVE) Urine Bilirubin (NEGATIVE) Urine Urobilinogen (0.2-1.0) mg/dL Ur Leukocyte Esterase (Negative) Asher/uL Urine WBC (Auto) (0-5) /hpf Urine RBC (Auto) (0-3) /hpf Rheumatoid Factor IgG (<=6) U Rheumatoid Factor IgA (<=6) U Rheumatoid Factor IgM (<=6) U Influenza Type A Ab (<1:8) titer Influenza Type B Ab (<1:8) titer 03/26/18 03/25/18 03/25/18 Range/Units 06:10 23:18 17:51 WBC (4.8-10.8) K/uL RBC (4.40-5.90) Mil/uL Hgb (12.0-18.0) g/dL Hct (35.0-51.0) % MCV (80.0-94.0) fL MCH (27.0-31.0) pg MCHC (33.0-37.0) g/dL RDW (11.5-14.5) % Plt Count (130-400) K/uL MPV (7.2-11.7) fL Neut % (Auto) (50.0-75.0) % Lymph % (Auto) (20.0-40.0) % L[place] % (Auto) (0.0-10.0) % Eos % (Auto) (0.0-4.0) % Baso % (Auto) (0.0-2.0) % Neut # (Auto) (1.8-7.0) K/uL Lymph # (Auto) (1.0-4.3) K/uL Licking # (Auto) (0.0-0.8) K/uL Eos # (Auto) (0.0-0.7) K/uL Baso # (Auto) (0.0-0.2) K/uL Neutrophils % (Manual) (50-75) % Band Neutrophils % (0-2) % Lymphocytes % (Manual) (20-40) % Monocytes % (Manual) (0-10) % Myelocytes % (0-0) % Platelet Estimate (NORMAL) Hypochromasia (manual) Poikilocytosis (manual Anisocytosis (manual) Sodium (132-148) mmol/L Potassium (3.6-5.2) mmol/L Chloride (98-107) mmol/L Carbon Dioxide (22-30) mmol/L Anion Gap (10-20) BUN (9-20) mg/dL Creatinine (0.8-1.5) mg/dL Est GFR ( Amer) Est GFR (Non-Af Amer) POC Glucose (mg/dL) 150 H 271 H 248 H (65-110) mg/dL Random Glucose (75-110) mg/dL Calcium (8.6-10.4) mg/dl Phosphorus (2.5-4.5) mg/dL Magnesium (1.6-2.3) mg/dL Total Bilirubin (0.2-1.3) mg/dL AST (17-59) U/L ALT (21-72) U/L Alkaline Phosphatase (38-126) U/L Total Protein (6.3-8.3) g/dL Albumin (3.5-5.0) g/dL Globulin (2.2-3.9) gm/dL Albumin/Globulin Ratio (1.0-2.1) Urine Color (YELLOW) Urine Clarity (Clear) Urine pH (5.0-8.0) Ur Specific Hayes (1.003-1.030) Urine Protein (NEGATIVE) mg/dL Urine Glucose (UA) (Normal) mg/dL Urine Ketones (NEGATIVE) mg/dL Urine Blood (NEGATIVE) Urine Nitrate (NEGATIVE) Urine Bilirubin (NEGATIVE) Urine Urobilinogen (0.2-1.0) mg/dL Ur Leukocyte Esterase (Negative) Asher/uL Urine WBC (Auto) (0-5) /hpf Urine RBC (Auto) (0-3) /hpf Rheumatoid Factor IgG (<=6) U Rheumatoid Factor IgA (<=6) U Rheumatoid Factor IgM (<=6) U Influenza Type A Ab (<1:8) titer Influenza Type B Ab (<1:8) titer 03/25/18 03/25/18 03/20/18 Range/Units 13:21 11:23 10:18 WBC (4.8-10.8) K/uL RBC (4.40-5.90) Mil/uL Hgb (12.0-18.0) g/dL Hct (35.0-51.0) % MCV (80.0-94.0) fL MCH (27.0-31.0) pg MCHC (33.0-37.0) g/dL RDW (11.5-14.5) % Plt Count (130-400) K/uL MPV (7.2-11.7) fL Neut % (Auto) (50.0-75.0) % Lymph % (Auto) (20.0-40.0) % [place] % (Auto) (0.0-10.0) % Eos % (Auto) (0.0-4.0) % Baso % (Auto) (0.0-2.0) % Neut # (Auto) (1.8-7.0) K/uL Lymph # (Auto) (1.0-4.3) K/uL Licking # (Auto) (0.0-0.8) K/uL Eos # (Auto) (0.0-0.7) K/uL Baso # (Auto) (0.0-0.2) K/uL Neutrophils % (Manual) (50-75) % Band Neutrophils % (0-2) % Lymphocytes % (Manual) (20-40) % Monocytes % (Manual) (0-10) % Myelocytes % (0-0) % Platelet Estimate (NORMAL) Hypochromasia (manual) Poikilocytosis (manual Anisocytosis (manual) Sodium (132-148) mmol/L Potassium (3.6-5.2) mmol/L Chloride (98-107) mmol/L Carbon Dioxide (22-30) mmol/L Anion Gap (10-20) BUN (9-20) mg/dL Creatinine (0.8-1.5) mg/dL Est GFR ( Amer) Est GFR (Non-Af Amer) POC Glucose (mg/dL) 146 H (65-110) mg/dL Random Glucose (75-110) mg/dL Calcium (8.6-10.4) mg/dl Phosphorus (2.5-4.5) mg/dL Magnesium (1.6-2.3) mg/dL Total Bilirubin (0.2-1.3) mg/dL AST (17-59) U/L ALT (21-72) U/L Alkaline Phosphatase (38-126) U/L Total Protein (6.3-8.3) g/dL Albumin (3.5-5.0) g/dL Globulin (2.2-3.9) gm/dL Albumin/Globulin Ratio (1.0-2.1) Urine Color Yellow (YELLOW) Urine Clarity Clear (Clear) Urine pH 5.0 (5.0-8.0) Ur Specific Hayes 1.024 (1.003-1.030) Urine Protein 1+ H (NEGATIVE) mg/dL Urine Glucose (UA) 1+ H (Normal) mg/dL Urine Ketones Negative (NEGATIVE) mg/dL Urine Blood 1+ H (NEGATIVE) Urine Nitrate Negative (NEGATIVE) Urine Bilirubin Negative (NEGATIVE) Urine Urobilinogen Normal (0.2-1.0) mg/dL Ur Leukocyte Esterase Neg (Negative) Asher/uL Urine WBC (Auto) 3 (0-5) /hpf Urine RBC (Auto) 2 (0-3) /hpf Rheumatoid Factor IgG (<=6) U Rheumatoid Factor IgA (<=6) U Rheumatoid Factor IgM (<=6) U Influenza Type A Ab 1:32 H (<1:8) titer Influenza Type B Ab <1:8 (<1:8) titer 03/20/18 Range/Units 08:24 WBC (4.8-10.8) K/uL RBC (4.40-5.90) Mil/uL Hgb (12.0-18.0) g/dL Hct (35.0-51.0) % MCV (80.0-94.0) fL MCH (27.0-31.0) pg MCHC (33.0-37.0) g/dL RDW (11.5-14.5) % Plt Count (130-400) K/uL MPV (7.2-11.7) fL Neut % (Auto) (50.0-75.0) % Lymph % (Auto) (20.0-40.0) % [place] % (Auto) (0.0-10.0) % Eos % (Auto) (0.0-4.0) % Baso % (Auto) (0.0-2.0) % Neut # (Auto) (1.8-7.0) K/uL Lymph # (Auto) (1.0-4.3) K/uL [place] # (Auto) (0.0-0.8) K/uL Eos # (Auto) (0.0-0.7) K/uL Baso # (Auto) (0.0-0.2) K/uL Neutrophils % (Manual) (50-75) % Band Neutrophils % (0-2) % Lymphocytes % (Manual) (20-40) % Monocytes % (Manual) (0-10) % Myelocytes % (0-0) % Platelet Estimate (NORMAL) Hypochromasia (manual) Poikilocytosis (manual Anisocytosis (manual) Sodium (132-148) mmol/L Potassium (3.6-5.2) mmol/L Chloride (98-107) mmol/L Carbon Dioxide (22-30) mmol/L Anion Gap (10-20) BUN (9-20) mg/dL Creatinine (0.8-1.5) mg/dL Est GFR ( Amer) Est GFR (Non-Af Amer) POC Glucose (mg/dL) (65-110) mg/dL Random Glucose (75-110) mg/dL Calcium (8.6-10.4) mg/dl Phosphorus (2.5-4.5) mg/dL Magnesium (1.6-2.3) mg/dL Total Bilirubin (0.2-1.3) mg/dL AST (17-59) U/L ALT (21-72) U/L Alkaline Phosphatase (38-126) U/L Total Protein (6.3-8.3) g/dL Albumin (3.5-5.0) g/dL Globulin (2.2-3.9) gm/dL Albumin/Globulin Ratio (1.0-2.1) Urine Color (YELLOW) Urine Clarity (Clear) Urine pH (5.0-8.0) Ur Specific Hayes (1.003-1.030) Urine Protein (NEGATIVE) mg/dL Urine Glucose (UA) (Normal) mg/dL Urine Ketones (NEGATIVE) mg/dL Urine Blood (NEGATIVE) Urine Nitrate (NEGATIVE) Urine Bilirubin (NEGATIVE) Urine Urobilinogen (0.2-1.0) mg/dL Ur Leukocyte Esterase (Negative) Asher/uL Urine WBC (Auto) (0-5) /hpf Urine RBC (Auto) (0-3) /hpf Rheumatoid Factor IgG <5 (<=6) U Rheumatoid Factor IgA <5 (<=6) U Rheumatoid Factor IgM <5 (<=6) U Influenza Type A Ab (<1:8) titer Influenza Type B Ab (<1:8) titer Laboratory Results - last 24 hr 03/20/18 03/20/18 03/25/18 08:24 10:18 11:23 WBC RBC Hgb Hct MCV MCH MCHC RDW Plt Count MPV Neut % (Auto) Lymph % (Auto) [place] % (Auto) Eos % (Auto) Baso % (Auto) Neut # (Auto) Lymph # (Auto) [place] # (Auto) Eos # (Auto) Baso # (Auto) Neutrophils % (Manual) Band Neutrophils % Lymphocytes % (Manual) Monocytes % (Manual) Myelocytes % Platelet Estimate Hypochromasia (manual) Poikilocytosis (manual Anisocytosis (manual) Sodium Potassium Chloride Carbon Dioxide Anion Gap BUN Creatinine Est GFR ( Amer) Est GFR (Non-Af Amer) POC Glucose (mg/dL) 146 H Random Glucose Calcium Phosphorus Magnesium Total Bilirubin AST ALT Alkaline Phosphatase Total Protein Albumin Globulin Albumin/Globulin Ratio Urine Color Urine Clarity Urine pH Ur Specific Hayes Urine Protein Urine Glucose (UA) Urine Ketones Urine Blood Urine Nitrate Urine Bilirubin Urine Urobilinogen Ur Leukocyte Esterase Urine WBC (Auto) Urine RBC (Auto) Rheumatoid Factor IgG <5 Rheumatoid Factor IgA <5 Rheumatoid Factor IgM <5 Influenza Type A Ab 1:32 H Influenza Type B Ab <1:8 03/25/18 03/25/18 03/25/18 13:21 17:51 23:18 WBC RBC Hgb Hct MCV MCH MCHC RDW Plt Count MPV Neut % (Auto) Lymph % (Auto) [place] % (Auto) Eos % (Auto) Baso % (Auto) Neut # (Auto) Lymph # (Auto) [place] # (Auto) Eos # (Auto) Baso # (Auto) Neutrophils % (Manual) Band Neutrophils % Lymphocytes % (Manual) Monocytes % (Manual) Myelocytes % Platelet Estimate Hypochromasia (manual) Poikilocytosis (manual Anisocytosis (manual) Sodium Potassium Chloride Carbon Dioxide Anion Gap BUN Creatinine Est GFR ( Amer) Est GFR (Non-Af Amer) POC Glucose (mg/dL) 248 H 271 H Random Glucose Calcium Phosphorus Magnesium Total Bilirubin AST ALT Alkaline Phosphatase Total Protein Albumin Globulin Albumin/Globulin Ratio Urine Color Yellow Urine Clarity Clear Urine pH 5.0 Ur Specific Hayes 1.024 Urine Protein 1+ H Urine Glucose (UA) 1+ H Urine Ketones Negative Urine Blood 1+ H Urine Nitrate Negative Urine Bilirubin Negative Urine Urobilinogen Normal Ur Leukocyte Esterase Neg Urine WBC (Auto) 3 Urine RBC (Auto) 2 Rheumatoid Factor IgG Rheumatoid Factor IgA Rheumatoid Factor IgM Influenza Type A Ab Influenza Type B Ab 03/26/18 03/26/18 03/26/18 06:10 06:40 06:40 WBC 15.7 H RBC 3.93 L Hgb 11.3 L Hct 35.3 MCV 89.8 MCH 28.9 MCHC 32.1 L RDW 14.1 Plt Count 144 MPV 10.2 Neut % (Auto) 90.8 H Lymph % (Auto) 4.1 L L[place] % (Auto) 5.0 Eos % (Auto) 0.0 Baso % (Auto) 0.1 Neut # (Auto) 14.3 H Lymph # (Auto) 0.6 L [place] # (Auto) 0.8 Eos # (Auto) 0.0 Baso # (Auto) 0.0 Neutrophils % (Manual) 89 H Band Neutrophils % 3 H Lymphocytes % (Manual) 3 L Monocytes % (Manual) 1 Myelocytes % 3 H Platelet Estimate Normal Hypochromasia (manual) Slight Poikilocytosis (manual Slight Anisocytosis (manual) Slight Sodium 152 H Potassium 4.1 Chloride 120 H Carbon Dioxide 27 Anion Gap 9 L BUN 49 H Creatinine 1.3 Est GFR ( Amer) > 60 Est GFR (Non-Af Amer) 55 POC Glucose (mg/dL) 150 H Random Glucose 160 H D Calcium 9.0 Phosphorus Magnesium Total Bilirubin 1.0 AST 26 ALT 39 Alkaline Phosphatase 90 Total Protein 6.6 Albumin 3.5 Globulin 3.1 Albumin/Globulin Ratio 1.1 Urine Color Urine Clarity Urine pH Ur Specific Hayes Urine Protein Urine Glucose (UA) Urine Ketones Urine Blood Urine Nitrate Urine Bilirubin Urine Urobilinogen Ur Leukocyte Esterase Urine WBC (Auto) Urine RBC (Auto) Rheumatoid Factor IgG Rheumatoid Factor IgA Rheumatoid Factor IgM Influenza Type A Ab Influenza Type B Ab 03/26/18 06:40 WBC RBC Hgb Hct MCV MCH MCHC RDW Plt Count MPV Neut % (Auto) Lymph % (Auto) [place] % (Auto) Eos % (Auto) Baso % (Auto) Neut # (Auto) Lymph # (Auto) [place] # (Auto) Eos # (Auto) Baso # (Auto) Neutrophils % (Manual) Band Neutrophils % Lymphocytes % (Manual) Monocytes % (Manual) Myelocytes % Platelet Estimate Hypochromasia (manual) Poikilocytosis (manual Anisocytosis (manual) Sodium Potassium Chloride Carbon Dioxide Anion Gap BUN Creatinine Est GFR ( Amer) Est GFR (Non-Af Amer) POC Glucose (mg/dL) Random Glucose Calcium Phosphorus 3.0 Magnesium 2.4 H Total Bilirubin AST ALT Alkaline Phosphatase Total Protein Albumin Globulin Albumin/Globulin Ratio Urine Color Urine Clarity Urine pH Ur Specific Hayes Urine Protein Urine Glucose (UA) Urine Ketones Urine Blood Urine Nitrate Urine Bilirubin Urine Urobilinogen Ur Leukocyte Esterase Urine WBC (Auto) Urine RBC (Auto) Rheumatoid Factor IgG Rheumatoid Factor IgA Rheumatoid Factor IgM Influenza Type A Ab Influenza Type B Ab Radiology Impressions: Radiology Impressions Head CT 03/25/18 17:46 IMPRESSION: Limited study secondary to suboptimal patient positioning and technique. 1. 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 Further evaluation with CT angiogram of the head and neck is recommended for further evaluation. Additional etiologies are not excluded. In addition, correlation with MRI would also be helpful if clinically indicated. 2. Sinus mucosal disease as above. A preliminary report was generated at 7:43 p.m. on 03/25/[address] Jasen Hong from [facility] rad. Fingerstick Blood Sugar Results: 150 Review of Systems - Review of Systems Systems not reviewed;Unavailable: Acuity of Condition Critical Care Progress Note - Extremities/Vascular Does the Patient have a Central Venous Catheter?: No - Prophylaxis GI Prophylaxis GI: PPI - Prophylaxis DVT Prophylaxis DVT: Not Indicated (held in the setting of peg tube today) Assessment/Plan - Assessment and Plan (Free Text) Assessment: Patient is a 67 yo male w/ PMH of HTN, DM, pulm fibrosis admitted to ICU for respiratory distress and cardiac arrest. Intubated in ED, Extubated in ICU. Cardiac cath showed clean vessles. High concern for anoxic brain injury. Pending EEG per neuro team for possibl seizures Neuro off sedation for 48 hours mental status remains unchanged; patient non responsive or communicative 1x dose of haldol Pulm Duoneb q6 Solumedrol IV q12 CV Lopressor po bid Lopressor IVP q6 prn Crestor GI Pending peg for feedings no acute issues Renal no acute issues Derm Inspect for ulcer formation as patient is non ambulatory Continue oral hygiene and Vitamin A&D topical ID Zosyn Tamiflu DVT ppx: held in setting of peg GI ppx: Protonix IV Dispostion: Likely AMS due to anoxic brain injury; will require peg for feedings; continue oral hygiene; possible downgrade today; switch to oral meds s/p peg tube feedings Case d/w Dr. Roberto Wall PGY-1 <Billy Mejia M - Last Filed: 03/26/18 16:34> CCU Objective - Vital Signs / Intake & Output Vital Signs (Last 4 hours): Vital Signs Pulse Resp BP Pulse Ox 03/26/18 14:41 96 H 23 177/85 H 93 L 03/26/18 14:09 76 23 168/101 H 94 L 03/26/18 13:55 77 22 115/93 H 03/26/18 13:43 83 28 H 151/92 H 100 03/26/18 13:35 72 22 153/95 H 91 L Intake and Output (Last 8hrs): Intake & Output 03/26/18 03/26/18 03/26/18 06:59 14:59 22:59 Intake Total 340.0 435.0 Output Total 520 270 Balance -180.0 165.0 Weight 162 lb Intake: IV 300 Intake, IV Amount 340.0 135.0 Left Proximal Port Hand 135.0 Right Hand 340.0 Output: Urine 520 270 Straight 270 Urethral (Melvin) 520 - Medications Active Medications: Active Medications Generic Name Dose Route Start Last Admin Trade Name Freq PRN Reason Stop Dose Admin Albuterol/Ipratropium 3 ml 03/20/18 14:00 03/26/18 13:19 Duoneb 3 Mg/0.5 Mg (3 Ml) Ud INH Not Given RQ6 DOUG Aspirin 300 mg 03/25/18 10:00 03/25/18 11:00 Aspirin Supp NM 300 mg DAILY DOUG Administration Heparin Sodium (Porcine) 5,000 units 03/25/18 14:00 03/26/18 06:25 Heparin SC 5,000 units Q8 DOUG Administration Piperacillin Sod/Tazobactam Sod 2.25 gm in 50 mls @ 100 mls/hr 03/21/18 19:00 03/26/18 14:13 Zosyn 2.25 Gm Iv Premix IVPB 100 mls/hr Q6H DOUG Administration Protocol Dextrose/Sodium Chloride 1,000 mls @ 50 mls/hr 03/26/18 15:00 03/26/18 15:17 Dextrose 5%/0.45% Ns 1000 Ml IV 50 mls/hr .Q20H DOUG Administration Insulin Aspart 0 unit 03/19/18 20:00 03/26/18 14:14 Novolog SC Not Given Q6 [facility] Protocol Lorazepam 1 mg 03/26/18 15:58 03/26/18 16:18 Ativan IVP 1 mg Q6H PRN Administration Restlessness Methylprednisolone 40 mg 03/22/18 10:00 03/26/18 09:42 Solu-Medrol IVP 40 mg Q12 DOUG Administration Metoprolol Tartrate 12.5 mg 03/24/18 11:15 03/26/18 09:42 Lopressor PO Not Given BID [facility] Metoprolol Tartrate 5 mg 03/26/18 08:46 03/26/18 09:41 Lopressor IVP 5 mg Q6 PRN Administration elevated blood pressure Oseltamivir Phosphate 75 mg 03/26/18 10:00 03/26/18 10:00 Tamiflu Cap PO Not Given BID [facility] Protocol Pantoprazole Sodium 40 mg 03/20/18 10:00 03/26/18 15:18 Protonix Inj IVP 40 mg DAILY DOUG Administration Rosuvastatin Calcium 5 mg 03/26/18 22:00 Crestor PO HS [facility] Vitamin A 1 ea 03/26/18 11:27 03/26/18 14:14 Vitamin A & D Oint Ud Foilpak TOP 1 ea Q6 PRN Administration Dry mouth - Patient Studies Lab Studies: Lab Studies 03/26/18 03/26/18 03/26/18 Range/Units 12:01 06:40 06:40 WBC (4.8-10.8) K/uL RBC (4.40-5.90) Mil/uL Hgb (12.0-18.0) g/dL Hct (35.0-51.0) % MCV (80.0-94.0) fL MCH (27.0-31.0) pg MCHC (33.0-37.0) g/dL RDW (11.5-14.5) % Plt Count (130-400) K/uL MPV (7.2-11.7) fL Neut % (Auto) (50.0-75.0) % Lymph % (Auto) (20.0-40.0) % [place] % (Auto) (0.0-10.0) % Eos % (Auto) (0.0-4.0) % Baso % (Auto) (0.0-2.0) % Neut # (Auto) (1.8-7.0) K/uL Lymph # (Auto) (1.0-4.3) K/uL [place] # (Auto) (0.0-0.8) K/uL Eos # (Auto) (0.0-0.7) K/uL Baso # (Auto) (0.0-0.2) K/uL Neutrophils % (Manual) (50-75) % Band Neutrophils % (0-2) % Lymphocytes % (Manual) (20-40) % Monocytes % (Manual) (0-10) % Myelocytes % (0-0) % Platelet Estimate (NORMAL) Hypochromasia (manual) Poikilocytosis (manual Anisocytosis (manual) Sodium 152 H (132-148) mmol/L Potassium 4.1 (3.6-5.2) mmol/L Chloride 120 H (98-107) mmol/L Carbon Dioxide 27 (22-30) mmol/L Anion Gap 9 L (10-20) BUN 49 H (9-20) mg/dL Creatinine 1.3 (0.8-1.5) mg/dL Est GFR ( Amer) > 60 Est GFR (Non-Af Amer) 55 POC Glucose (mg/dL) 197 H (65-110) mg/dL Random Glucose 160 H D (75-110) mg/dL Calcium 9.0 (8.6-10.4) mg/dl Phosphorus 3.0 (2.5-4.5) mg/dL Magnesium 2.4 H (1.6-2.3) mg/dL Total Bilirubin 1.0 (0.2-1.3) mg/dL AST 26 (17-59) U/L ALT 39 (21-72) U/L Alkaline Phosphatase 90 (38-126) U/L Total Protein 6.6 (6.3-8.3) g/dL Albumin 3.5 (3.5-5.0) g/dL Globulin 3.1 (2.2-3.9) gm/dL Albumin/Globulin Ratio 1.1 (1.0-2.1) Rheumatoid Factor IgG (<=6) U Rheumatoid Factor IgA (<=6) U Rheumatoid Factor IgM (<=6) U Influenza Type A Ab (<1:8) titer Influenza Type B Ab (<1:8) titer 03/26/18 03/26/18 03/25/18 Range/Units 06:40 06:10 23:18 WBC 15.7 H (4.8-10.8) K/uL RBC 3.93 L (4.40-5.90) Mil/uL Hgb 11.3 L (12.0-18.0) g/dL Hct 35.3 (35.0-51.0) % MCV 89.8 (80.0-94.0) fL MCH 28.9 (27.0-31.0) pg MCHC 32.1 L (33.0-37.0) g/dL RDW 14.1 (11.5-14.5) % Plt Count 144 (130-400) K/uL MPV 10.2 (7.2-11.7) fL Neut % (Auto) 90.8 H (50.0-75.0) % Lymph % (Auto) 4.1 L (20.0-40.0) % [place] % (Auto) 5.0 (0.0-10.0) % Eos % (Auto) 0.0 (0.0-4.0) % Baso % (Auto) 0.1 (0.0-2.0) % Neut # (Auto) 14.3 H (1.8-7.0) K/uL Lymph # (Auto) 0.6 L (1.0-4.3) K/uL [place] # (Auto) 0.8 (0.0-0.8) K/uL Eos # (Auto) 0.0 (0.0-0.7) K/uL Baso # (Auto) 0.0 (0.0-0.2) K/uL Neutrophils % (Manual) 89 H (50-75) % Band Neutrophils % 3 H (0-2) % Lymphocytes % (Manual) 3 L (20-40) % Monocytes % (Manual) 1 (0-10) % Myelocytes % 3 H (0-0) % Platelet Estimate Normal (NORMAL) Hypochromasia (manual) Slight Poikilocytosis (manual Slight Anisocytosis (manual) Slight Sodium (132-148) mmol/L Potassium (3.6-5.2) mmol/L Chloride (98-107) mmol/L Carbon Dioxide (22-30) mmol/L Anion Gap (10-20) BUN (9-20) mg/dL Creatinine (0.8-1.5) mg/dL Est GFR ( Amer) Est GFR (Non-Af Amer) POC Glucose (mg/dL) 150 H 271 H (65-110) mg/dL Random Glucose (75-110) mg/dL Calcium (8.6-10.4) mg/dl Phosphorus (2.5-4.5) mg/dL Magnesium (1.6-2.3) mg/dL Total Bilirubin (0.2-1.3) mg/dL AST (17-59) U/L ALT (21-72) U/L Alkaline Phosphatase (38-126) U/L Total Protein (6.3-8.3) g/dL Albumin (3.5-5.0) g/dL Globulin (2.2-3.9) gm/dL Albumin/Globulin Ratio (1.0-2.1) Rheumatoid Factor IgG (<=6) U Rheumatoid Factor IgA (<=6) U Rheumatoid Factor IgM (<=6) U Influenza Type A Ab (<1:8) titer Influenza Type B Ab (<1:8) titer 03/25/18 03/25/18 03/20/18 Range/Units 17:51 11:23 10:18 WBC (4.8-10.8) K/uL RBC (4.40-5.90) Mil/uL Hgb (12.0-18.0) g/dL Hct (35.0-51.0) % MCV (80.0-94.0) fL MCH (27.0-31.0) pg MCHC (33.0-37.0) g/dL RDW (11.5-14.5) % Plt Count (130-400) K/uL MPV (7.2-11.7) fL Neut % (Auto) (50.0-75.0) % Lymph % (Auto) (20.0-40.0) % [place] % (Auto) (0.0-10.0) % Eos % (Auto) (0.0-4.0) % Baso % (Auto) (0.0-2.0) % Neut # (Auto) (1.8-7.0) K/uL Lymph # (Auto) (1.0-4.3) K/uL [place] # (Auto) (0.0-0.8) K/uL Eos # (Auto) (0.0-0.7) K/uL Baso # (Auto) (0.0-0.2) K/uL Neutrophils % (Manual) (50-75) % Band Neutrophils % (0-2) % Lymphocytes % (Manual) (20-40) % Monocytes % (Manual) (0-10) % Myelocytes % (0-0) % Platelet Estimate (NORMAL) Hypochromasia (manual) Poikilocytosis (manual Anisocytosis (manual) Sodium (132-148) mmol/L Potassium (3.6-5.2) mmol/L Chloride (98-107) mmol/L Carbon Dioxide (22-30) mmol/L Anion Gap (10-20) BUN (9-20) mg/dL Creatinine (0.8-1.5) mg/dL Est GFR ( Amer) Est GFR (Non-Af Amer) POC Glucose (mg/dL) 248 H 146 H (65-110) mg/dL Random Glucose (75-110) mg/dL Calcium (8.6-10.4) mg/dl Phosphorus (2.5-4.5) mg/dL Magnesium (1.6-2.3) mg/dL Total Bilirubin (0.2-1.3) mg/dL AST (17-59) U/L ALT (21-72) U/L Alkaline Phosphatase (38-126) U/L Total Protein (6.3-8.3) g/dL Albumin (3.5-5.0) g/dL Globulin (2.2-3.9) gm/dL Albumin/Globulin Ratio (1.0-2.1) Rheumatoid Factor IgG (<=6) U Rheumatoid Factor IgA (<=6) U Rheumatoid Factor IgM (<=6) U Influenza Type A Ab 1:32 H (<1:8) titer Influenza Type B Ab <1:8 (<1:8) titer 03/20/18 Range/Units 08:24 WBC (4.8-10.8) K/uL RBC (4.40-5.90) Mil/uL Hgb (12.0-18.0) g/dL Hct (35.0-51.0) % MCV (80.0-94.0) fL MCH (27.0-31.0) pg MCHC (33.0-37.0) g/dL RDW (11.5-14.5) % Plt Count (130-400) K/uL MPV (7.2-11.7) fL Neut % (Auto) (50.0-75.0) % Lymph % (Auto) (20.0-40.0) % [place] % (Auto) (0.0-10.0) % Eos % (Auto) (0.0-4.0) % Baso % (Auto) (0.0-2.0) % Neut # (Auto) (1.8-7.0) K/uL Lymph # (Auto) (1.0-4.3) K/uL [place] # (Auto) (0.0-0.8) K/uL Eos # (Auto) (0.0-0.7) K/uL Baso # (Auto) (0.0-0.2) K/uL Neutrophils % (Manual) (50-75) % Band Neutrophils % (0-2) % Lymphocytes % (Manual) (20-40) % Monocytes % (Manual) (0-10) % Myelocytes % (0-0) % Platelet Estimate (NORMAL) Hypochromasia (manual) Poikilocytosis (manual Anisocytosis (manual) Sodium (132-148) mmol/L Potassium (3.6-5.2) mmol/L Chloride (98-107) mmol/L Carbon Dioxide (22-30) mmol/L Anion Gap (10-20) BUN (9-20) mg/dL Creatinine (0.8-1.5) mg/dL Est GFR ( Amer) Est GFR (Non-Af Amer) POC Glucose (mg/dL) (65-110) mg/dL Random Glucose (75-110) mg/dL Calcium (8.6-10.4) mg/dl Phosphorus (2.5-4.5) mg/dL Magnesium (1.6-2.3) mg/dL Total Bilirubin (0.2-1.3) mg/dL AST (17-59) U/L ALT (21-72) U/L Alkaline Phosphatase (38-126) U/L Total Protein (6.3-8.3) g/dL Albumin (3.5-5.0) g/dL Globulin (2.2-3.9) gm/dL Albumin/Globulin Ratio (1.0-2.1) Rheumatoid Factor IgG <5 (<=6) U Rheumatoid Factor IgA <5 (<=6) U Rheumatoid Factor IgM <5 (<=6) U Influenza Type A Ab (<1:8) titer Influenza Type B Ab (<1:8) titer Laboratory Results - last 24 hr 03/20/18 03/20/18 03/25/18 08:24 10:18 11:23 WBC RBC Hgb Hct MCV MCH MCHC RDW Plt Count MPV Neut % (Auto) Lymph % (Auto) [place] % (Auto) Eos % (Auto) Baso % (Auto) Neut # (Auto) Lymph # (Auto) [place] # (Auto) Eos # (Auto) Baso # (Auto) Neutrophils % (Manual) Band Neutrophils % Lymphocytes % (Manual) Monocytes % (Manual) Myelocytes % Platelet Estimate Hypochromasia (manual) Poikilocytosis (manual Anisocytosis (manual) Sodium Potassium Chloride Carbon Dioxide Anion Gap BUN Creatinine Est GFR ( Amer) Est GFR (Non-Af Amer) POC Glucose (mg/dL) 146 H Random Glucose Calcium Phosphorus Magnesium Total Bilirubin AST ALT Alkaline Phosphatase Total Protein Albumin Globulin Albumin/Globulin Ratio Rheumatoid Factor IgG <5 Rheumatoid Factor IgA <5 Rheumatoid Factor IgM <5 Influenza Type A Ab 1:32 H Influenza Type B Ab <1:8 03/25/18 03/25/18 03/26/18 17:51 23:18 06:10 WBC RBC Hgb Hct MCV MCH MCHC RDW Plt Count MPV Neut % (Auto) Lymph % (Auto) [place] % (Auto) Eos % (Auto) Baso % (Auto) Neut # (Auto) Lymph # (Auto) [place] # (Auto) Eos # (Auto) Baso # (Auto) Neutrophils % (Manual) Band Neutrophils % Lymphocytes % (Manual) Monocytes % (Manual) Myelocytes % Platelet Estimate Hypochromasia (manual) Poikilocytosis (manual Anisocytosis (manual) Sodium Potassium Chloride Carbon Dioxide Anion Gap BUN Creatinine Est GFR ( Amer) Est GFR (Non-Af Amer) POC Glucose (mg/dL) 248 H 271 H 150 H Random Glucose Calcium Phosphorus Magnesium Total Bilirubin AST ALT Alkaline Phosphatase Total Protein Albumin Globulin Albumin/Globulin Ratio Rheumatoid Factor IgG Rheumatoid Factor IgA Rheumatoid Factor IgM Influenza Type A Ab Influenza Type B Ab 03/26/18 03/26/18 03/26/18 06:40 06:40 06:40 WBC 15.7 H RBC 3.93 L Hgb 11.3 L Hct 35.3 MCV 89.8 MCH 28.9 MCHC 32.1 L RDW 14.1 Plt Count 144 MPV 10.2 Neut % (Auto) 90.8 H Lymph % (Auto) 4.1 L [place] % (Auto) 5.0 Eos % (Auto) 0.0 Baso % (Auto) 0.1 Neut # (Auto) 14.3 H Lymph # (Auto) 0.6 L [place] # (Auto) 0.8 Eos # (Auto) 0.0 Baso # (Auto) 0.0 Neutrophils % (Manual) 89 H Band Neutrophils % 3 H Lymphocytes % (Manual) 3 L Monocytes % (Manual) 1 Myelocytes % 3 H Platelet Estimate Normal Hypochromasia (manual) Slight Poikilocytosis (manual Slight Anisocytosis (manual) Slight Sodium 152 H Potassium 4.1 Chloride 120 H Carbon Dioxide 27 Anion Gap 9 L BUN 49 H Creatinine 1.3 Est GFR ( Amer) > 60 Est GFR (Non-Af Amer) 55 POC Glucose (mg/dL) Random Glucose 160 H D Calcium 9.0 Phosphorus 3.0 Magnesium 2.4 H Total Bilirubin 1.0 AST 26 ALT 39 Alkaline Phosphatase 90 Total Protein 6.6 Albumin 3.5 Globulin 3.1 Albumin/Globulin Ratio 1.1 Rheumatoid Factor IgG Rheumatoid Factor IgA Rheumatoid Factor IgM Influenza Type A Ab Influenza Type B Ab 03/26/18 12:01 WBC RBC Hgb Hct MCV MCH MCHC RDW Plt Count MPV Neut % (Auto) Lymph % (Auto) [place] % (Auto) Eos % (Auto) Baso % (Auto) Neut # (Auto) Lymph # (Auto) [place] # (Auto) Eos # (Auto) Baso # (Auto) Neutrophils % (Manual) Band Neutrophils % Lymphocytes % (Manual) Monocytes % (Manual) Myelocytes % Platelet Estimate Hypochromasia (manual) Poikilocytosis (manual Anisocytosis (manual) Sodium Potassium Chloride Carbon Dioxide Anion Gap BUN Creatinine Est GFR ( Amer) Est GFR (Non-Af Amer) POC Glucose (mg/dL) 197 H Random Glucose Calcium Phosphorus Magnesium Total Bilirubin AST ALT Alkaline Phosphatase Total Protein Albumin Globulin Albumin/Globulin Ratio Rheumatoid Factor IgG Rheumatoid Factor IgA Rheumatoid Factor IgM Influenza Type A Ab Influenza Type B Ab Radiology Impressions: Radiology Impressions Head CT 03/25/18 17:46 IMPRESSION: Limited study secondary to suboptimal patient positioning and technique. 1. 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 Further evaluation with CT angiogram of the head and neck is recommended for further evaluation. Additional etiologies are not excluded. In addition, correlation with MRI would also be helpful if clinically indicated. 2. Sinus mucosal disease as above. A preliminary report was generated at 7:43 p.m. on 03/25/[address] Jasen Hong from [facility]. Assessment/Plan - Assessment and Plan (Free Text) Assessment: Patient seen and examined at bedside. Patient s/p cardiac arrest, intubated and extubated. -remains hemodynamically stable CAD-continue antiplatelet therapy, and AV nate karen -ANoxic brain injury-suspect post arrest, avoid any sedation, re-orientation, neuurology for future prognstication of functional capacity -aspiration precautions -continue dvt/pud ppx -Patient remains hemodynamically stable. -Patient's son informed of current clinical status including anoxic brain injury - Date & Time Date: 03/26/18 Time: 16:34
[2018-03-26] MEDS ORDERED: Bupivacaine 0.25% 20 ML INJ IJ ONE (11:42)
[2018-03-26] MEDS ORDERED: Lidocaine/Epinephrine 1% 1:100000 10 ML IJ ONE (11:42)
--- NOTE | 2018-03-26 13:36 | PCM.SURG1 ---
Surgeon's Initial Post Op Note - Surgeon's Notes Surgeon: Dr. Morales Lock Technician: Dr. Trotter PGY-3, Dr. Russ PGY-1, Kayley Lemon Type of Anesthesia: General Endo Pre-Operative Diagnosis: Anoxic Brain Injury Operative Findings: See operative report Post-Operative Diagnosis: Same Operation Performed: PEG tube insertion Specimen/Specimens Removed: none Estimated Blood Loss: EBL {In ML}: 0 Blood Products Given: N/A Drains Used: No Drains Post-Op Condition: Good Date of Surgery/Procedure: 03/26/18 Time of Surgery/Procedure: 13:35
[2018-03-26] MEDS: Vitamins A & D Oint UD Foilpak TOP PRN (14:14)
[2018-03-26] MEDS: Dextrose 5%/0.45% NS 1,000 ML IV SCH (15:17)
--- NOTE | 2018-03-26 15:41 | CP.PCM.PN ---
Subjective - Date & Time of Evaluation Date of Evaluation: 03/26/18 Time of Evaluation: 15:39 - Subjective Subjective: Neurology Progress Note: Patient was seen and examined this afternoon. Son at bedside. Patient was extubated 03/24/17. Patient is very restless today and is unable to follow minimal commands. Patient is also POD #0 peg insertion today. ROS unobtainable as pt is still nonverbal and unresponsive. Objective - Vital Signs/Intake and Output Vital Signs (last 24 hours): Temp Pulse Resp BP Pulse Ox 98.3 F 96 H 23 177/85 H 93 L 03/26/18 12:00 03/26/18 14:41 03/26/18 14:41 03/26/18 14:41 03/26/18 14:41 Intake and Output: 03/26/18 03/26/18 06:59 18:59 Intake Total 510.0 135.0 Output Total 710 270 Balance -200.0 -135.0 - Medications Medications: Current Medications Albuterol/Ipratropium (Duoneb 3 Mg/0.5 Mg (3 Ml) Ud) 3 ml INH RQ6 [facility] Last Admin: 03/26/18 13:19 Dose: Not Given Aspirin (Aspirin Supp) 300 mg [place] DAILY [facility] Last Admin: 03/25/18 11:00 Dose: 300 mg Heparin Sodium (Porcine) (Heparin) 5,000 units SC Q8 [facility] Last Admin: 03/26/18 06:25 Dose: 5,000 units Piperacillin Sod/Tazobactam Sod (Zosyn 2.25 Gm Iv Premix) 2.25 gm in 50 mls @ 100 mls/hr IVPB Q6H [facility]; Protocol Last Admin: 03/26/18 14:13 Dose: 100 mls/hr Dextrose/Sodium Chloride (Dextrose 5%/0.45% Ns 1000 Ml) 1,000 mls @ 50 mls/hr IV .Q20H [facility] Last Admin: 03/26/18 15:17 Dose: 50 mls/hr Insulin Aspart (Novolog) 0 unit SC Q6 [facility]; Protocol Last Admin: 03/26/18 14:14 Dose: Not Given Methylprednisolone (Solu-Medrol) 40 mg IVP Q12 [facility] Last Admin: 03/26/18 09:42 Dose: 40 mg Metoprolol Tartrate (Lopressor) 12.5 mg PO BID [facility] Last Admin: 03/26/18 09:42 Dose: Not Given Metoprolol Tartrate (Lopressor) 5 mg IVP Q6 PRN PRN Reason: elevated blood pressure Last Admin: 03/26/18 09:41 Dose: 5 mg Oseltamivir Phosphate (Tamiflu Cap) 75 mg PO BID [facility]; Protocol Last Admin: 03/26/18 10:00 Dose: Not Given Pantoprazole Sodium (Protonix Inj) 40 mg IVP DAILY [facility] Last Admin: 03/26/18 15:18 Dose: 40 mg Rosuvastatin Calcium (Crestor) 5 mg PO [facility] Vitamin A (Vitamin A & D Oint Ud Foilpak) 1 ea TOP Q6 PRN PRN Reason: Dry mouth Last Admin: 03/26/18 14:14 Dose: 1 ea - Labs Labs: 03/26/18 06:40 03/26/18 06:40 PT 12.9 SECONDS (9.7-12.2) H 03/21/18 04:41 INR 1.2 03/21/18 04:41 APTT 51 SECONDS (21-34) H 03/24/18 06:35 - Constitutional Appears: Agitated - Head Exam Head Exam: NORMAL INSPECTION, NORMOCEPHALIC - Eye Exam Eye Exam: PERRL Pupil Exam: PERRL Additional comments: very restless; unable to assess eomi; + corneals; opens eyes spontaneously - ENT Exam ENT Exam: Mucous Membranes Moist - Neck Exam Neck Exam: Full ROM, Normal Inspection - Respiratory Exam Respiratory Exam: NORMAL BREATHING PATTERN - Cardiovascular Exam Cardiovascular Exam: Tachycardia (103 hr) - GI/Abdominal Exam Additional comments: peg inserted today - Extremities Exam Extremities Exam: Full ROM. absent: Calf Tenderness, Pedal Edema - Back Exam Back Exam: Full ROM, NORMAL INSPECTION - Neurological Exam Neurological Exam: Altered, Reflexes Normal. absent: Oriented x3 Neuro motor strength exam: Left Upper Extremity: 5, Right Upper Extremity: 5, Left Lower Extremity: 5, Right Lower Extremity: 5 Additional comments: Nonverbal; extubated Unable to follow commands; very restless RUE has immobilizer Moves all extremities independently Reflexes brisk Unable to test fine motor and sensation 2/2 pt's condition No tremors or clonus noted. - Psychiatric Exam Psychiatric exam: absent: Normal Affect, Normal Mood Additional comments: nonverbal; restless - Skin Skin Exam: Normal Color Assessment and Plan (1) Cardiac arrest Assessment & Plan: Imaging reviewed: Head CT (03/26/18): Limited study secondary to suboptimal patient positioning and technique. 1. 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 Further evaluation with CT angiogram of the head and neck is recommended for further evaluation. Additional etiologies are not excluded. In addition, correlation with MRI would also be helpful if clinically indicated. 2. Sinus mucosal disease as above. Head CT (03/19/18): 9x11mm Right middle cerebral artery aneurysm Head CT (03/22/18): Mild generalized volume loss. Previously noted right MCA aneurysm. -Patient is awake but very restless, extubated 03/24/17. Unable to follow simple commands today, remains non-verbal, not alert or oriented. -During cardiac arrest patient was down for about a possible 28 minutes. -Neurological status possibly secondary to seizure or anoxic brain injury. -Pending EEG---ordered yesterday--will f/u with results once completed. -ASA and Heparin held 2/2 PEG insertion today---resume once cleared by surgery to restart. -Ativan 1mg IV Q6 hours prn restlessness ordered to start now. Case discussed with Dr. Jay Status: Acute
[2018-03-26] MEDS: Cefepime IV 2 gm in Dextrose 2 GM/100 ML BAG IVPB SCH (18:27)
[2018-03-27] MEDS: (Novolog) Insulin Aspart, Recombinant 100 u/ml 10 ml vial SC SCH ×4 (00:16→18:23)
--- NOTE | 2018-03-27 00:35 | PN ---
DATE: 03/26/2018 SUBJECTIVE: Tello Mejia remains afebrile; however, he is very lethargic and gets agitated. It seems like he gets some sort of discomfort and throws his arms around. PHYSICAL EXAMINATION VITAL SIGNS: Pulse is 79, blood pressure 168/91, respirations are 33. HEENT: Head is atraumatic. NECK: Supple. LUNGS: Occasional rhonchi bilaterally. HEART: S1, S2 is regular. ABDOMEN: Soft, nontender. No guarding, no rigidity present. EXTREMITIES: No edema. LABORATORY DATA: His labs still show that white count is 15.7, hemoglobin 11.3, hematocrit 35.3, platelet count is 144, neutrophils are 90.8. Chemistry shows sodium is 152, chloride 120, potassium is 4.1, BUN is 40, creatinine 1.3. ASSESSMENT AND PLAN: At this time, he remains with encephalopathy. He had a head CT yesterday and the head CT shows a small aneurysm. Other than that, it did not show any acute event, but the patient was not moving a lot. Then, he had a chest x-ray done. He does have a history of pulmonary fibrosis from the past. He had interval removal of , [id number] venous congestion, diffuse interstitial increased opacities bilaterally, bilateral hilar prominence, small nodular density at the right lung base, small left pleural effusion, consolidative changes in the left lung base, calcified lymph nodes and large ectatic cardiomegaly. I changed the medicine to Maxipime which will cause the blood-brain barrier. Also, he is with altered mental status which may be metabolic or due to anoxic, it is unclear at this time. The chemistry shows creatinine is 1.3. I would also put him on vancomycin 1 g as he does have this consolidation and if his white count increases further, but for now, I have changed it to Maxipime. He is already on Tamiflu, and we will add vancomycin 1 g daily. We will follow. Rizwana Reddy MD
[2018-03-27] MEDS: Albuterol-Ipratrop 3 mg / 0.5 (3 ml) UD INH SCH ×3 (02:41→20:06)
[2018-03-27] MEDS: Cefepime IV 2 gm in Dextrose 2 GM/100 ML BAG IVPB SCH ×2 (05:32→18:00)
[2018-03-27 06:43] LABS: BASO % 0.1 % (0.0-2.0); HEMOGLOBIN 11.7 g/dL (12.0-18.0); LYMPH # 0.6 K/uL (1.0-4.3); LYMPH % 4.5 % (20.0-40.0); MEAN CELL VOLUME 90.8 fL (80.0-94.0); MEAN CORPUSCULAR HEMOGLOBIN 28.6 pg (27.0-31.0); MEAN CORPUSCULAR HGB CONC 31.5 g/dL (33.0-37.0); MEAN PLATELET VOLUME 10.4 fL (7.2-11.7); MONO # 0.5 K/uL (0.0-0.8); MONO % 3.8 % (0.0-10.0); NEUT % 91.6 % (50.0-75.0); NRBC % 0.1 % (0.0-2.0); PLATELET COUNT 135 K/uL (130-400); RED CELL DISTRIBUTION WIDTH 14.1 % (11.5-14.5); WHITE BLOOD COUNT 14.2 K/uL (4.8-10.8)
[2018-03-27 07:11] LABS: ALB/GLOB RATIO 1.1 (1.0-2.1); ALBUMIN 3.4 g/dL (3.5-5.0); ALT/SGPT 43 U/L (21-72); AST/SGOT 37 U/L (17-59); BLOOD UREA NITROGEN 52 mg/dL (9-20); CALCIUM 8.6 mg/dl (8.6-10.4); GFR NON-AFRICAN AMERICAN > 60
[2018-03-27 09:23] LABS: LYMPHOCYTE 2 % (20-40); MONOCYTE 5 % (0-10); NEUTROPHIL 93 % (50-75); PLATELET ESTIMATE NORMAL (NORMAL); TOTAL CELLS COUNTED 100
[2018-03-27] MEDS: MethylPREDNISolone 40 mg Vial IVP SCH ×2 (10:30→21:49)
[2018-03-27] MEDS: Dextrose 5%/0.45% NS 1,000 ML IV SCH (11:00)
[2018-03-27] MEDS: Vitamins A & D Oint UD Foilpak TOP PRN (12:52)
--- NOTE | 2018-03-27 14:28 | CP.PCM.PN ---
<Hattie Trotter - Last Filed: 03/27/18 14:24> Subjective - Date & Time of Evaluation Date of Evaluation: 03/27/18 Time of Evaluation: 14:24 - Subjective Subjective: Surgery: Dr. Morales Pt seen and examined. No acute overnight events. Pt continues to be at his baseline GCS. Tube feeds started via PEG tube this AM which pt is tolerating. No fevers recorded overnight. Objective - Vital Signs/Intake and Output Vital Signs (last 24 hours): Temp Pulse Resp BP Pulse Ox 97.8 F 66 22 140/70 98 03/27/18 08:00 03/27/18 10:00 03/27/18 09:00 03/27/18 08:00 03/27/18 09:00 Intake and Output: 03/27/18 03/27/18 06:59 18:59 Intake Total 630 Output Total 900 200 Balance -270 -200 - Medications Medications: Current Medications Albuterol/Ipratropium (Duoneb 3 Mg/0.5 Mg (3 Ml) Ud) 3 ml INH RQ6 DOUG Last Admin: 03/27/18 08:25 Dose: 3 ml Aspirin (Aspirin Supp) 300 mg [place] DAILY [facility] Last Admin: 03/25/18 11:00 Dose: 300 mg Heparin Sodium (Porcine) (Heparin) 5,000 units SC Q8 [facility]OU[facility] Last Admin: 03/26/18 06:25 Dose: 5,000 units Dextrose/Sodium Chloride (Dextrose 5%/0.45% Ns 1000 Ml) 1,000 mls @ 50 mls/hr IV .Q20H [facility] Last Admin: 03/27/18 11:00 Dose: Not Given Cefepime HCl (Maxipime Iv 2 Gm Premix) 2 gm in 100 mls @ 100 mls/hr IVPB Q12H [facility]; Protocol Stop: 03/31/18 18:01 Last Admin: 03/27/18 05:32 Dose: 100 mls/hr Vancomycin HCl 1 gm/ Sodium (Chloride) 250 mls @ 166.7 mls/hr IVPB Q24H [facility]; Protocol Last Admin: 03/26/18 23:04 Dose: 166.7 mls/hr Insulin Aspart (Novolog) 0 unit SC Q6 [facility]; Protocol Last Admin: 03/27/18 12:00 Dose: 3 units Lorazepam (Ativan) 1 mg IVP Q6H PRN PRN Reason: Restlessness Last Admin: 03/27/18 10:00 Dose: 1 mg Methylprednisolone (Solu-Medrol) 40 mg IVP Q12 [facility] Last Admin: 03/27/18 10:30 Dose: 40 mg Metoprolol Tartrate (Lopressor) 12.5 mg PO BID [facility] Last Admin: 03/27/18 10:35 Dose: 12.5 mg Metoprolol Tartrate (Lopressor) 5 mg IVP Q6 PRN PRN Reason: elevated blood pressure Last Admin: 03/26/18 18:27 Dose: 5 mg Metoprolol Tartrate (Lopressor) 25 mg PEG BID [facility] Oseltamivir Phosphate (Tamiflu Cap) 75 mg PO BID [facility]; Protocol Last Admin: 03/27/18 13:00 Dose: 75 mg Pantoprazole Sodium (Protonix Inj) 40 mg IVP DAILY [facility] Last Admin: 03/27/18 11:00 Dose: 40 mg Rosuvastatin Calcium (Crestor) 10 mg PO HS [facility] Vitamin A (Vitamin A & D Oint Ud Foilpak) 1 ea TOP Q6 PRN PRN Reason: Dry mouth Last Admin: 03/27/18 12:52 Dose: 1 ea - Labs Labs: 03/27/18 06:20 03/27/18 06:20 PT 12.9 SECONDS (9.7-12.2) H 03/21/18 04:41 INR 1.2 03/21/18 04:41 APTT 51 SECONDS (21-34) H 03/24/18 06:35 - Constitutional Appears: Well, No Acute Distress - ENT Exam ENT Exam: Mucous Membranes Moist - Respiratory Exam Respiratory Exam: NORMAL BREATHING PATTERN - Cardiovascular Exam Cardiovascular Exam: RRR - GI/Abdominal Exam GI & Abdominal Exam: Soft. absent: Distended, Tenderness Additional comments: PEG in place LUQ, dressing clean/dry/intact - Neurological Exam Neurological Exam: Alert, Awake - Skin Skin Exam: Dry, Warm Assessment and Plan - Assessment and Plan (Free Text) Assessment: 67M with anoxic brain injury s/p PEG insertion; POD#1 Plan: - ok to use PEG for feeds - advance tube feeds to goal as tolerated - sutures to be removed in 10 days - d/w Dr. Andrew Trotter <Ayden Morales - Last Filed: 04/01/18 21:06> Objective - Vital Signs/Intake and Output Vital Signs (last 24 hours): Temp Pulse Resp BP Pulse Ox 97.6 F 70 20 144/90 98 04/01/18 16:00 04/01/18 16:00 04/01/18 16:00 04/01/18 18:27 04/01/18 16:00 Intake and Output: 04/01/18 04/02/18 18:59 06:59 Intake Total 1040 Output Total 400 Balance 640 - Medications Medications: Current Medications Acetaminophen (Tylenol 650 Mg Supp) 650 mg [place] Q6 PRN PRN Reason: fever+pain Aspirin (Aspirin Supp) 300 mg AL DAILY [facility] Last Admin: 04/01/18 10:47 Dose: 300 mg Heparin Sodium (Porcine) (Heparin) 5,000 units SC Q8 [facility] Last Admin: 04/01/18 14:20 Dose: 5,000 units Sodium Chloride (Sodium Chloride 0.45%) 1,000 mls @ 75 mls/hr IV .[id number] [facility] Last Admin: 03/31/18 18:00 Dose: Not Given Cefepime HCl 2 gm/ Dextrose 50 mls @ 100 mls/hr IVPB Q12H [facility]; Protocol Last Admin: 04/01/18 19:33 Dose: 100 mls/hr Insulin Aspart (Novolog) 0 unit SC Q6 [facility]; Protocol Last Admin: 04/01/18 18:27 Dose: 4 units Insulin Glargine (Lantus) 16 unit SC HS [facility] Lorazepam (Ativan) 1 mg IVP Q4H PRN PRN Reason: Restlessness Last Admin: 03/29/18 23:11 Dose: 1 mg Losartan Potassium (Cozaar) 25 mg PEG DAILY [facility] Last Admin: 04/01/18 10:47 Dose: 25 mg Methylprednisolone (Solu-Medrol) 40 mg IVP BID [facility] Last Admin: 04/01/18 18:27 Dose: 40 mg Metoprolol Tartrate (Lopressor) 5 mg IVP Q6 PRN PRN Reason: elevated blood pressure Last Admin: 03/31/18 06:09 Dose: 5 mg Metoprolol Tartrate (Lopressor) 25 mg PEG BID [facility] Last Admin: 04/01/18 18:27 Dose: 25 mg Oseltamivir Phosphate (Tamiflu Susp) 30 mg [place] BID [facility]; Protocol Stop: 04/05/18 18:31 Last Admin: 04/01/18 19:24 Dose: 30 mg Pantoprazole Sodium (Protonix Susp) 40 mg PO DAILY [facility] Last Admin: 04/01/18 10:48 Dose: 40 mg Rosuvastatin Calcium (Crestor) 10 mg PO HS [facility] Last Admin: 03/31/18 21:51 Dose: 10 mg Vitamin A (Vitamin A & D Oint Ud Foilpak) 1 ea TOP Q6 PRN PRN Reason: Dry mouth Last Admin: 03/30/18 22:45 Dose: 1 ea Vitamin A (Vitamin A & D Oint Ud Foilpak) 1 ea TOP Q8 PRN PRN Reason: Dry mouth Last Admin: 03/30/18 15:20 Dose: 1 ea - Labs Labs: 04/01/18 07:12 04/01/18 07:12 PT 12.9 SECONDS (9.7-12.2) H 03/21/18 04:41 INR 1.2 03/21/18 04:41 APTT 51 SECONDS (21-34) H 03/24/18 06:35 Attending/Attestation - Attestation I have personally seen and examined this patient.: Yes I have fully participated in the care of the patient.: Yes I have reviewed all pertinent clinical information, including history, physical exam and plan: Yes Notes (Text): Pt was seen and examined at bedside Agree with above note and assessment Pt is stable clinically Can use PEG tube c.w current mx f.u prn Plan d.w primary team in detail
--- NOTE | 2018-03-27 19:04 | CP.PCM.PN ---
<Diamond Urbano - Last Filed: 03/27/18 20:10> Subjective - Date & Time of Evaluation Date of Evaluation: 03/27/18 Time of Evaluation: 19:04 - Subjective Subjective: Progress note for Dr. Sorensen Patient was seen and examined at bedside. Patient's family member was also at bedside. ROS unobtainable due to patient condition. Objective - Vital Signs/Intake and Output Vital Signs (last 24 hours): Temp Pulse Resp BP Pulse Ox 98 F 66 20 106/70 99 03/27/18 16:20 03/27/18 18:00 03/27/18 16:20 03/27/18 18:16 03/27/18 16:20 Intake and Output: 03/27/18 03/28/18 18:59 06:59 Intake Total 580 Output Total 1000 Balance -420 - Medications Medications: Current Medications Albuterol/Ipratropium (Duoneb 3 Mg/0.5 Mg (3 Ml) Ud) 3 ml INH RQ6 DOUG Last Admin: 03/27/18 08:25 Dose: 3 ml Aspirin (Aspirin Supp) 300 mg TN DAILY DOUG Last Admin: 03/25/18 11:00 Dose: 300 mg Heparin Sodium (Porcine) (Heparin) 5,000 units SC Q8 DOUG Last Admin: 03/26/18 06:25 Dose: 5,000 units Dextrose/Sodium Chloride (Dextrose 5%/0.45% Ns 1000 Ml) 1,000 mls @ 50 mls/hr IV .Q20H DOUG Last Admin: 03/27/18 11:00 Dose: Not Given Cefepime HCl (Maxipime Iv 2 Gm Premix) 2 gm in 100 mls @ 100 mls/hr IVPB Q12H DOUG; Protocol Stop: 03/31/18 18:01 Last Admin: 03/27/18 18:00 Dose: 100 mls/hr Vancomycin HCl 1 gm/ Sodium (Chloride) 250 mls @ 166.7 mls/hr IVPB Q24H DOUG; Protocol Last Admin: 03/26/18 23:04 Dose: 166.7 mls/hr Insulin Aspart (Novolog) 0 unit SC Q6 DOUG; Protocol Last Admin: 03/27/18 18:23 Dose: 4 units Lorazepam (Ativan) 1 mg IVP Q6H PRN PRN Reason: Restlessness Last Admin: 03/27/18 18:37 Dose: 1 mg Methylprednisolone (Solu-Medrol) 40 mg IVP Q12 [facility] Last Admin: 03/27/18 10:30 Dose: 40 mg Metoprolol Tartrate (Lopressor) 12.5 mg PO BID COUNT [facility]CLUD[facility] Last Admin: 03/27/18 18:17 Dose: Not Given Metoprolol Tartrate (Lopressor) 5 mg IVP Q6 PRN PRN Reason: elevated blood pressure Last Admin: 03/26/18 18:27 Dose: 5 mg Metoprolol Tartrate (Lopressor) 25 mg PEG BID [facility] Last Admin: 03/27/18 18:16 Dose: Not Given Oseltamivir Phosphate (Tamiflu Cap) 75 mg PO BID [facility]; Protocol Last Admin: 03/27/18 18:43 Dose: 75 mg Pantoprazole Sodium (Protonix Inj) 40 mg IVP DAILY [facility] Last Admin: 03/27/18 11:00 Dose: 40 mg Rosuvastatin Calcium (Crestor) 10 mg PO [facility] Vitamin A (Vitamin A & D Oint Ud Foilpak) 1 ea TOP Q6 PRN PRN Reason: Dry mouth Last Admin: 03/27/18 12:52 Dose: 1 ea - Labs Labs: 03/27/18 06:20 03/27/18 06:20 PT 12.9 SECONDS (9.7-12.2) H 03/21/18 04:41 INR 1.2 03/21/18 04:41 APTT 51 SECONDS (21-34) H 03/24/18 06:35 - Constitutional Appears: Agitated (patient moving all extremities) - Head Exam Head Exam: ATRAUMATIC - ENT Exam ENT Exam: Mucous Membranes Moist - Respiratory Exam Respiratory Exam: NORMAL BREATHING PATTERN. absent: Accessory Muscle Use, Respiratory Distress - Cardiovascular Exam Cardiovascular Exam: +S1, +S2 - GI/Abdominal Exam GI & Abdominal Exam: Soft. absent: Distended, Firm - Extremities Exam Extremities Exam: absent: Pedal Edema - Neurological Exam Neurological Exam: Altered. absent: Alert, Awake, Oriented x3 Additional comments: patient moves all extremities - Skin Skin Exam: Dry, Normal Color, Warm Assessment and Plan - Assessment and Plan (Free Text) Plan: 67 year old male with past medical history of pulmonary fibrosis, DM, HTN, and BPH admitted 03/19/18 for chest pain. Patient was admitted to ICU s/p cardiac arrest (Vfib/Vtach/NSTEMI). Patient has anoxic brain injury. S/p peg placement on 03/26/18, started on tube feeds on 03/27/18. 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 - Head CT (03/19/18): 9x11mm Right middle cerebral artery aneurysm - Head CT (03/22/18): Mild generalized volume loss. Previously noted right MCA aneurysm. - Neurology consulted, Dr. Menjivar/Pierre; help appreciated - EEG ordered, will f/u results - Gen Surgery, Dr. Morales, consulted for PEG placement - S/p PEG placement on 03/26/18 - Tube feedings started on 03/27/18 (jevity 1.5L at 20) - Apparatus Cleaner referral ordered Cardiac arrest, NSTEMI, Respiratory failure - Initial rhythm asytole ,Epi x 3 given, went into VF/VT requiring shock and Amiodarone 300mg - Elevated troponin,EKG LBBB(old) - Strategic Account Director consulted, Dr Moyer , help appreciated - Echo reviewed with sausage canner in the ICU, preserved LV function, griselda- septal hypokinesis - Patient was extubated on 03/24/18 following cardiac catherization - s/p cardiac cath at [facility] [place] on [place]24/18; results showed non obstructive CAD - Lopressor 25mg po bid - Lopressor IVP q6 prn - Crestor 10mg po hs - Duoneb q6 - Solumedrol IV q12 Influenza - Leukocytosis, trending down - Afebrile - Influenza A + - Legionella, strep pneumo, mycoplasma negative - Started on Tamiflu on 03/26/18 Acute renal failure - improving, BUN 52, Cr 1.2 - Currently on IV fluids - Nephrology consulted, Dr. Jacques; recs appreciated Severe pulmonary fibrosis - CT chest:centrilobular emphysema and upper lobe pulmonary fibrosis - Abattoir Manager consulted, Dr Salazar, rec appreciated - Duoneb q6 - Solumedrol IV q12 - Due to leukocytosis, ID started Vanco 1gm IV 124h and Cefepime 2gm IV Q12h on 03/26/18 DM - Accuchecks - ISS, medium - Hypoglycemic protocol Hypertension - Lopressor 25mg po bid - Lopressor IVP q6 prn - Continue to monitor Supportive care - DVT: heparin 5000u sc Q8, SCDs - GI: protonix 40mg iv daily - Tube feeds: jevity 1.5 @20; Apparatus Cleaner referral - Palliative care consulted - Isolation for influenza - PT Case discussed with Dr. Franchesca Bui, PGY2 <José Luis Sorensen H - Last Filed: 03/28/18 08:08> Objective - Vital Signs/Intake and Output Vital Signs (last 24 hours): Temp Pulse Resp BP Pulse Ox 98.4 F 82 20 155/99 H 96 03/28/18 00:00 03/28/18 00:00 03/28/18 00:00 03/28/18 00:00 03/28/18 00:00 Intake and Output: 03/28/18 03/28/18 06:59 18:59 Intake Total 0 Balance 0 - Medications Medications: Current Medications Albuterol/Ipratropium (Duoneb 3 Mg/0.5 Mg (3 Ml) Ud) 3 ml INH RQ6 DOUG Last Admin: 03/28/18 06:19 Dose: Not Given Aspirin (Aspirin Supp) 300 mg TN DAILY DOUG Last Admin: 03/25/18 11:00 Dose: 300 mg Heparin Sodium (Porcine) (Heparin) 5,000 units SC Q8 DOUG Last Admin: 03/26/18 06:25 Dose: 5,000 units Dextrose/Sodium Chloride (Dextrose 5%/0.45% Ns 1000 Ml) 1,000 mls @ 50 mls/hr IV .Q20H DOUG Last Admin: 03/27/18 11:00 Dose: Not Given Cefepime HCl (Maxipime Iv 2 Gm Premix) 2 gm in 100 mls @ 100 mls/hr IVPB Q12H DOUG; Protocol Stop: 03/31/18 18:01 Last Admin: 03/28/18 05:49 Dose: 100 mls/hr Vancomycin HCl 1 gm/ Sodium (Chloride) 250 mls @ 166.7 mls/hr IVPB Q24H DOUG; Protocol Last Admin: 03/27/18 21:50 Dose: 166.7 mls/hr Insulin Aspart (Novolog) 0 unit SC Q6 DOUG; Protocol Last Admin: 03/28/18 07:10 Dose: 6 units Lorazepam (Ativan) 1 mg IVP Q4H PRN PRN Reason: Restlessness Methylprednisolone (Solu-Medrol) 40 mg IVP Q12 [facility]CLUD[facility] Last Admin: 03/27/18 21:49 Dose: 40 mg Metoprolol Tartrate (Lopressor) 5 mg IVP Q6 PRN PRN Reason: elevated blood pressure Last Admin: 03/26/18 18:27 Dose: 5 mg Metoprolol Tartrate (Lopressor) 25 mg PEG BID COUNT [facility]CLUDES [facility] Last Admin: 03/27/18 18:16 Dose: Not Given Oseltamivir Phosphate (Tamiflu Cap) 75 mg PO BID [facility]OUG; Protocol Last Admin: 03/27/18 18:43 Dose: 75 mg Pantoprazole Sodium (Protonix Inj) 40 mg IVP DAILY [facility] Last Admin: 03/27/18 11:00 Dose: 40 mg Rosuvastatin Calcium (Crestor) 10 mg PO HS COUNT [facility] Last Admin: 03/27/18 21:48 Dose: 10 mg Vitamin A (Vitamin A & D Oint Ud Foilpak) 1 ea TOP Q6 PRN PRN Reason: Dry mouth Last Admin: 03/27/18 12:52 Dose: 1 ea - Labs Labs: 03/27/18 06:20 03/27/18 06:20 PT 12.9 SECONDS (9.7-12.2) H 03/21/18 04:41 INR 1.2 03/21/18 04:41 APTT 51 SECONDS (21-34) H 03/24/18 06:35 Attending/Attestation - Attestation I have personally seen and examined this patient.: Yes I have fully participated in the care of the patient.: Yes I have reviewed all pertinent clinical information, including history, physical exam and plan: Yes Notes (Text): 03/28/18 08:03 Medical attending: Patient was seen and examined by me. Agree with the above note by the resident the patient - his tube feeds were started at 20 cc /hr with 200 cc water flushes. Later this amount will be increased as long as he tolerates this. Also he can be very agitated with his arms and legs. As prevoiusly mentioned he is not verbal and does not follow commands I explained to the family member again a bedside (his son) that we are concerned for there has been anoxic brain damage José Luis Sorensen
--- NOTE | 2018-03-27 20:12 | CP.PCM.PN ---
Subjective - Date & Time of Evaluation Date of Evaluation: 03/27/18 Time of Evaluation: 18:00 - Subjective Subjective: dictated Objective - Vital Signs/Intake and Output Vital Signs (last 24 hours): Temp Pulse Resp BP Pulse Ox 98 F 66 20 106/70 99 03/27/18 16:20 03/27/18 18:00 03/27/18 16:20 03/27/18 18:16 03/27/18 16:20 Intake and Output: 03/27/18 03/28/18 18:59 06:59 Intake Total 580 Output Total 1000 Balance -420 - Medications Medications: Current Medications Albuterol/Ipratropium (Duoneb 3 Mg/0.5 Mg (3 Ml) Ud) 3 ml INH RQ6 DOUG Last Admin: 03/27/18 20:06 Dose: 3 ml Aspirin (Aspirin Supp) 300 mg [place] DAILY DOUG Last Admin: 03/25/18 11:00 Dose: 300 mg Heparin Sodium (Porcine) (Heparin) 5,000 units SC Q8 DOUG Last Admin: 03/26/18 06:25 Dose: 5,000 units Dextrose/Sodium Chloride (Dextrose 5%/0.45% Ns 1000 Ml) 1,000 mls @ 50 mls/hr IV .Q20H DOUG Last Admin: 03/27/18 11:00 Dose: Not Given Cefepime HCl (Maxipime Iv 2 Gm Premix) 2 gm in 100 mls @ 100 mls/hr IVPB Q12H DOUG; Protocol Stop: 03/31/18 18:01 Last Admin: 03/27/18 18:00 Dose: 100 mls/hr Vancomycin HCl 1 gm/ Sodium (Chloride) 250 mls @ 166.7 mls/hr IVPB Q24H DOUG; Protocol Last Admin: 03/26/18 23:04 Dose: 166.7 mls/hr Insulin Aspart (Novolog) 0 unit SC Q6 DOUG; Protocol Last Admin: 03/27/18 18:23 Dose: 4 units Lorazepam (Ativan) 1 mg IVP Q6H PRN PRN Reason: Restlessness Last Admin: 03/27/18 18:37 Dose: 1 mg Methylprednisolone (Solu-Medrol) 40 mg IVP Q12 DOUG Last Admin: 03/27/18 10:30 Dose: 40 mg Metoprolol Tartrate (Lopressor) 5 mg IVP Q6 PRN PRN Reason: elevated blood pressure Last Admin: 03/26/18 18:27 Dose: 5 mg Metoprolol Tartrate (Lopressor) 25 mg PEG BID [facility] Last Admin: 03/27/18 18:16 Dose: Not Given Oseltamivir Phosphate (Tamiflu Cap) 75 mg PO BID DOUG; Protocol Last Admin: 03/27/18 18:43 Dose: 75 mg Pantoprazole Sodium (Protonix Inj) 40 mg IVP DAILY [facility] Last Admin: 03/27/18 11:00 Dose: 40 mg Rosuvastatin Calcium (Crestor) 10 mg PO [facility] Vitamin A (Vitamin A & D Oint Ud Foilpak) 1 ea TOP Q6 PRN PRN Reason: Dry mouth Last Admin: 03/27/18 12:52 Dose: 1 ea - Labs Labs: 03/27/18 06:20 03/27/18 06:20 PT 12.9 SECONDS (9.7-12.2) H 03/21/18 04:41 INR 1.2 03/21/18 04:41 APTT 51 SECONDS (21-34) H 03/24/18 06:35
--- NOTE | 2018-03-28 01:55 | PN ---
DATE: 03/27/2018 SUBJECTIVE: The patient was seen today. The son was at the bedside. He continues to be unresponsive. Has jerky movements. I am not sure if he has anoxic encephalopathy. PHYSICAL EXAMINATION: VITAL SIGNS: Heart rate is 69, blood pressure 158/76, respirations are 20. HEENT: Head is atraumatic otherwise. LUNGS: Clear. No crackles or rales present. No trouble breathing. HEART: S1 and S2 are regular. ABDOMEN: Soft, nontender. No guarding, no rigidity present. EXTREMITIES: Have no edema. LABORATORY DATA: His white count is 14.2 today, hemoglobin 11.7, hematocrit 37.3, platelet count is 135, it is little diminished from yesterday. Chemistry shows sodium is 148, potassium 4, chlorides are 118, CO2 is 24, BUN is 52, creatinine is 1.2. ASSESSMENT AND PLAN: The son was asking me what is done in such kind of cases. I could not answer much. The patient probably has anoxic brain injury. He had a percutaneous endoscopic gastrostomy tube inserted. At this time, I am not sure he does seem to tell me that the patient is [place]. I told him that whatever supportive care that will be provided need to be discussed with the director case. At this time, I would continue the antibiotics. The patient has anoxic encephalopathy. He did have a cardiac arrest. He is status post percutaneous endoscopic gastrostomy. He still is on steroids, hence may be the white count. I added vancomycin and Maxipime to cover for any pneumonia as this patient has pulmonary fibrosis. Rizwana Reddy MD
[2018-03-28] MEDS: (Novolog) Insulin Aspart, Recombinant 100 u/ml 10 ml vial SC SCH ×5 (02:21→20:01)
[2018-03-28] MEDS: Cefepime IV 2 gm in Dextrose 2 GM/100 ML BAG IVPB SCH ×2 (05:49→20:01)
[2018-03-28] MEDS: Albuterol-Ipratrop 3 mg / 0.5 (3 ml) UD INH SCH ×4 (06:19→19:32)
[2018-03-28] MEDS: Dextrose 5%/0.45% NS 1,000 ML IV SCH (07:25)
--- NOTE | 2018-03-28 08:04 | CP.PCM.PN ---
<Lauri Anton - Last Filed: 03/28/18 08:01> Subjective - Date & Time of Evaluation Date of Evaluation: 03/28/18 Time of Evaluation: 07:00 - Subjective Subjective: PGY-[address] Sorensen Patient seen and examined at bedside. is at bedside during encounter. Patient observed to be agitated, moving arms. mittens in place. Patient is not able to contribute to history. Patient' ROS not obtainable due to patient's status at this time. Objective - Vital Signs/Intake and Output Vital Signs (last 24 hours): Temp Pulse Resp BP Pulse Ox 98.4 F 82 20 155/99 H 96 03/28/18 00:00 03/28/18 00:00 03/28/18 00:00 03/28/18 00:00 03/28/18 00:00 Intake and Output: 03/28/18 03/28/18 06:59 18:59 Intake Total 0 Balance 0 - Medications Medications: Current Medications Albuterol/Ipratropium (Duoneb 3 Mg/0.5 Mg (3 Ml) Ud) 3 ml INH RQ6 DOUG Last Admin: 03/28/18 06:19 Dose: Not Given Aspirin (Aspirin Supp) 300 mg [place] DAILY DOUG Last Admin: 03/25/18 11:00 Dose: 300 mg Heparin Sodium (Porcine) (Heparin) 5,000 units SC Q8 DOUG Last Admin: 03/26/18 06:25 Dose: 5,000 units Dextrose/Sodium Chloride (Dextrose 5%/0.45% Ns 1000 Ml) 1,000 mls @ 50 mls/hr IV .Q20H DOUG Last Admin: 03/27/18 11:00 Dose: Not Given Cefepime HCl (Maxipime Iv 2 Gm Premix) 2 gm in 100 mls @ 100 mls/hr IVPB Q12H DOUG; Protocol Stop: 03/31/18 18:01 Last Admin: 03/28/18 05:49 Dose: 100 mls/hr Vancomycin HCl 1 gm/ Sodium (Chloride) 250 mls @ 166.7 mls/hr IVPB Q24H DOUG; Protocol Last Admin: 03/27/18 21:50 Dose: 166.7 mls/hr Insulin Aspart (Novolog) 0 unit SC Q6 DOUG; Protocol Last Admin: 03/28/18 07:10 Dose: 6 units Lorazepam (Ativan) 1 mg IVP Q4H PRN PRN Reason: Restlessness Methylprednisolone (Solu-Medrol) 40 mg IVP Q12 [facility] Last Admin: 03/27/18 21:49 Dose: 40 mg Metoprolol Tartrate (Lopressor) 5 mg IVP Q6 PRN PRN Reason: elevated blood pressure Last Admin: 03/26/18 18:27 Dose: 5 mg Metoprolol Tartrate (Lopressor) 25 mg PEG BID [facility] Last Admin: 03/27/18 18:16 Dose: Not Given Oseltamivir Phosphate (Tamiflu Cap) 75 mg PO BID [facility]; Protocol Last Admin: 03/27/18 18:43 Dose: 75 mg Pantoprazole Sodium (Protonix Inj) 40 mg IVP DAILY [facility] Last Admin: 03/27/18 11:00 Dose: 40 mg Rosuvastatin Calcium (Crestor) 10 mg PO HS [facility] Last Admin: 03/27/18 21:48 Dose: 10 mg Vitamin A (Vitamin A & D Oint Ud Foilpak) 1 ea TOP Q6 PRN PRN Reason: Dry mouth Last Admin: 03/27/18 12:52 Dose: 1 ea - Labs Labs: 03/27/18 06:20 03/27/18 06:20 PT 12.9 SECONDS (9.7-12.2) H 03/21/18 04:41 INR 1.2 03/21/18 04:41 APTT 51 SECONDS (21-34) H 03/24/18 06:35 - Constitutional Appears: Agitated - Head Exam Head Exam: ATRAUMATIC - Eye Exam Eye Exam: Normal appearance - ENT Exam ENT Exam: Mucous Membranes Moist - Respiratory Exam Respiratory Exam: NORMAL BREATHING PATTERN - Cardiovascular Exam Cardiovascular Exam: +S1, +S2 - GI/Abdominal Exam GI & Abdominal Exam: Soft. absent: Tenderness - Extremities Exam Extremities Exam: absent: Pedal Edema Additional comments: mittens in hands b/l - Neurological Exam Neurological Exam: Altered. absent: Alert, Awake, Oriented x3 - Skin Skin Exam: Normal Color Assessment and Plan - Assessment and Plan (Free Text) Plan: Unresponsiveness/suspect anoxic brain encephalopathy vs seizures - Head CT (03/19/18): 9x11mm Right middle cerebral artery aneurysm - Head CT (03/22/18): Mild generalized volume loss. Previously noted right MCA aneurysm. - Neurology consulted, Dr. Menjivar/Pierre; help appreciated - EEG ordered, will f/u results - Gen Surgery, Dr. Morales, consulted for PEG placement - S/p PEG placement on 03/26/18 - Tube feedings started on 03/27/18 (jevity 1.5L at 20) - switching to glucerna, possible rate of 30 cc - Student Affairs Vice President referral ordered - Possible EEG to r/o seizure activity on thursday03/29/18 Cardiac arrest, NSTEMI, Respiratory failure - Initial rhythm asytole ,Epi x 3 given, went into VF/VT requiring shock and Amiodarone 300mg - Elevated troponin,EKG LBBB(old) - Ship Pilot consulted, Dr Moyer , help appreciated - Echo reviewed with blocker polishing in the ICU, preserved LV function, griselda- septal hypokinesis - Patient was extubated on 03/24/18 following cardiac catherization - s/p cardiac cath at [facility] [place] on 03/24/18; results showed non obstructive CAD - Lopressor 25mg po bid - Lopressor IVP q6 prn - Crestor 10mg po hs - Duoneb q6 - Solumedrol IV q12 Agitation - Ativan 1mg IVP Q4H PRN - keep mittens in place - renew orders daily Influenza - Afebrile - Influenza A + - Legionella, strep pneumo, mycoplasma negative - continue tamiflu Acute renal failure - improving, BUN 52, Cr 1.2 - Currently on IV fluids - Nephrology consulted, Dr. Jacques; recs appreciated Severe pulmonary fibrosis - CT chest:centrilobular emphysema and upper lobe pulmonary fibrosis - Americanization Teacher consulted, Dr Salazar, rec appreciated - Duoneb q6 - Solumedrol IV q12 - Due to leukocytosis, ID started Vanco 1gm IV 124h and Cefepime 2gm IV Q12h on 03/26/18 DM - Accuchecks - ISS, medium - Hypoglycemic protocol Hypertension - Lopressor 25mg po bid - Lopressor IVP q6 prn - Continue to monitor Supportive care - DVT: heparin 5000u sc Q8 - HELD , SCDs - GI: protonix 40mg iv daily - Tube feeds: jevity 1.5 @20 - will be switching to glucerna due to hx of DM, consider increase rate to 30 cc - Palliative care consulted - Isolation for influenza - PT <José Luis Sorensen H - Last Filed: 03/28/18 09:47> Objective - Vital Signs/Intake and Output Vital Signs (last 24 hours): Temp Pulse Resp BP Pulse Ox 98.3 F 78 18 150/100 H 94 L 03/28/18 09:12 03/28/18 09:12 03/28/18 09:12 03/28/18 09:12 03/28/18 09:12 Intake and Output: 03/28/18 03/28/18 06:59 18:59 Intake Total 0 Balance 0 - Medications Medications: Current Medications Albuterol/Ipratropium (Duoneb 3 Mg/0.5 Mg (3 Ml) Ud) 3 ml INH RQ6 DOUG Last Admin: 03/28/18 07:45 Dose: 3 ml Aspirin (Aspirin Supp) 300 mg MA DAILY DOUG Last Admin: 03/25/18 11:00 Dose: 300 mg Heparin Sodium (Porcine) (Heparin) 5,000 units SC Q8 DOUG Last Admin: 03/26/18 06:25 Dose: 5,000 units Dextrose/Sodium Chloride (Dextrose 5%/0.45% Ns 1000 Ml) 1,000 mls @ 50 mls/hr IV .Q20H DOUG Last Admin: 03/27/18 11:00 Dose: Not Given Cefepime HCl (Maxipime Iv 2 Gm Premix) 2 gm in 100 mls @ 100 mls/hr IVPB Q12H DOUG; Protocol Stop: 03/31/18 18:01 Last Admin: 03/28/18 05:49 Dose: 100 mls/hr Vancomycin HCl 1 gm/ Sodium (Chloride) 250 mls @ 166.7 mls/hr IVPB Q24H DOUG; Protocol Last Admin: 03/27/18 21:50 Dose: 166.7 mls/hr Insulin Aspart (Novolog) 0 unit SC Q6 DOUG; Protocol Last Admin: 03/28/18 07:10 Dose: 6 units Lorazepam (Ativan) 1 mg IVP Q4H PRN PRN Reason: Restlessness Last Admin: 03/28/18 09:13 Dose: 1 mg Methylprednisolone (Solu-Medrol) 40 mg IVP Q12 [facility]OUG Last Admin: 03/27/18 21:49 Dose: 40 mg Metoprolol Tartrate (Lopressor) 5 mg IVP Q6 PRN PRN Reason: elevated blood pressure Last Admin: 03/26/18 18:27 Dose: 5 mg Metoprolol Tartrate (Lopressor) 25 mg PEG BID [facility] Last Admin: 03/27/18 18:16 Dose: Not Given Oseltamivir Phosphate (Tamiflu Cap) 75 mg PO BID [facility]; Protocol Last Admin: 03/27/18 18:43 Dose: 75 mg Pantoprazole Sodium (Protonix Inj) 40 mg IVP DAILY [facility] Last Admin: 03/27/18 11:00 Dose: 40 mg Rosuvastatin Calcium (Crestor) 10 mg PO HS [facility] Last Admin: 03/27/18 21:48 Dose: 10 mg Vitamin A (Vitamin A & D Oint Ud Foilpak) 1 ea TOP Q6 PRN PRN Reason: Dry mouth Last Admin: 03/27/18 12:52 Dose: 1 ea - Labs Labs: 03/28/18 07:50 03/28/18 07:50 PT 12.9 SECONDS (9.7-12.2) H 03/21/18 04:41 INR 1.2 03/21/18 04:41 APTT 51 SECONDS (21-34) H 03/24/18 06:35 Attending/Attestation - Attestation I have personally seen and examined this patient.: Yes I have fully participated in the care of the patient.: Yes I have reviewed all pertinent clinical information, including history, physical exam and plan: Yes Notes (Text): 03/28/18 09:38 Medical attending: Patient was seen and examined by me. Agree with the above note by the resident and I came and saw and spoke with the family member his son at bedside. present as well Situation not different from before - he is agitated, restless moving his arms all over the place. The night time resident gave ativan - and I agree with this Orders are now for ativan PRN for agitation. I had a long conversation with the son at bedside. He is returning to [place] in a few days and a sister is comming I explained to them that the mental status situation is probably not going to improve. EEG is pending and he asked about MRI however given the way the patient is so agitated and restless that getting an MRI may not be feasible unless we sedate him extremely heavily With reguards tot he the agitation and restlessness - hopefully he doesn't pull out his flannery or his PEG tube. He has mittens on Because of the lack of insurance I explained to the son that sometimes family brings patients home and tries to care for them at home - however lives al one and does not have a job and does not speak Moroccan. There is minimal family support for her and she probably would have a hard time with the PEG feedings and changing the flannery. I also explained that at some point they maybe want to considering comfort care / hospice care. He said he would talk this over with his mother (the patient's ) José Luis Sorensen
[2018-03-28 08:10] LABS: BASO % 0.2 % (0.0-2.0); HEMOGLOBIN 12.1 g/dL (12.0-18.0); LYMPH # 0.7 K/uL (1.0-4.3); LYMPH % 3.3 % (20.0-40.0); MEAN CORPUSCULAR HEMOGLOBIN 28.8 pg (27.0-31.0); MEAN CORPUSCULAR HGB CONC 31.7 g/dL (33.0-37.0); MEAN PLATELET VOLUME 10.4 fL (7.2-11.7); MONO # 0.8 K/uL (0.0-0.8); MONO % 3.9 % (0.0-10.0); NEUT # 18.4 K/uL (1.8-7.0); NEUT % 92.6 % (50.0-75.0); PLATELET COUNT 161 K/uL (130-400); RBC 4.22 Mil/uL (4.40-5.90); WHITE BLOOD COUNT 19.9 K/uL (4.8-10.8)
[2018-03-28 08:20] LABS: ALB/GLOB RATIO 1.1 (1.0-2.1); ALBUMIN 3.4 g/dL (3.5-5.0); ALT/SGPT 44 U/L (21-72); AST/SGOT 32 U/L (17-59); BLOOD UREA NITROGEN 46 mg/dL (9-20); CALCIUM 8.7 mg/dl (8.6-10.4); GFR NON-AFRICAN AMERICAN 55
[2018-03-28 09:02] LABS: BANDS 1 % (0-2); LYMPHOCYTE 4 % (20-40); MONOCYTE 2 % (0-10); NEUTROPHIL 93 % (50-75); PLATELET ESTIMATE NORMAL (NORMAL); TOTAL CELLS COUNTED 100
[2018-03-28] MEDS: MethylPREDNISolone 40 mg Vial IVP SCH ×2 (11:00→22:21)
[2018-03-28] MEDS: Vitamins A & D Oint UD Foilpak TOP PRN (12:37)
[2018-03-28] MEDS: Vancomycin 1 gm/NS 200 ml 1 GM/200 ML BAG IVPB SCH (22:23)
[2018-03-29] MEDS: Albuterol-Ipratrop 3 mg / 0.5 (3 ml) UD INH SCH ×4 (01:34→19:30)
[2018-03-29] MEDS: (Novolog) Insulin Aspart, Recombinant 100 u/ml 10 ml vial SC SCH ×4 (01:53→19:00)
[2018-03-29] MEDS: Dextrose 5%/0.45% NS 1,000 ML IV SCH ×2 (03:29→09:33)
[2018-03-29] MEDS: Cefepime IV 2 gm in Dextrose 2 GM/100 ML BAG IVPB SCH ×2 (06:55→18:59)
[2018-03-29 07:31] LABS: BASO % 0.2 % (0.0-2.0); HEMOGLOBIN 12.1 g/dL (12.0-18.0); LYMPH # 0.7 K/uL (1.0-4.3); LYMPH % 3.9 % (20.0-40.0); MEAN CELL VOLUME 90.6 fL (80.0-94.0); MEAN CORPUSCULAR HEMOGLOBIN 29.1 pg (27.0-31.0); MEAN CORPUSCULAR HGB CONC 32.1 g/dL (33.0-37.0); MEAN PLATELET VOLUME 10.7 fL (7.2-11.7); MONO # 0.8 K/uL (0.0-0.8); MONO % 4.6 % (0.0-10.0); NEUT # 15.3 K/uL (1.8-7.0); NEUT % 91.3 % (50.0-75.0); PLATELET COUNT 140 K/uL (130-400); RBC 4.18 Mil/uL (4.40-5.90); RED CELL DISTRIBUTION WIDTH 14.2 % (11.5-14.5); WHITE BLOOD COUNT 16.7 K/uL (4.8-10.8)
[2018-03-29 07:40] LABS: ALBUMIN 3.2 g/dL (3.5-5.0); ALT/SGPT 43 U/L (21-72); AST/SGOT 29 U/L (17-59); BLOOD UREA NITROGEN 45 mg/dL (9-20); CALCIUM 8.8 mg/dl (8.6-10.4); GFR NON-AFRICAN AMERICAN 55
--- NOTE | 2018-03-29 08:03 | CP.PCM.PN ---
<Samantha Joe - Last Filed: 03/29/18 11:51> Subjective - Date & Time of Evaluation Date of Evaluation: 03/29/18 Time of Evaluation: 08:02 - Subjective Subjective: Medicine Progress Note for Dr. Dawson Patient seen and examined at bedside this morning. Patient was moving all four extremities and shaking his head. Seen with son and daughter, who states he is still not talking regularly and not recognizing people. Due to patient condition ROS unable to be obtained. Objective - Vital Signs/Intake and Output Vital Signs (last 24 hours): Temp Pulse Resp BP Pulse Ox 98.4 F 88 20 160/93 H 94 L 03/29/18 07:00 03/29/18 07:00 03/29/18 07:00 03/29/18 07:00 03/29/18 07:00 Intake and Output: 03/29/18 03/29/18 06:59 18:59 Output Total 400 Balance -400 - Medications Medications: Current Medications Albuterol/Ipratropium (Duoneb 3 Mg/0.5 Mg (3 Ml) Ud) 3 ml INH RQ6 [facility] Last Admin: 03/29/18 01:34 Dose: 3 ml Aspirin (Aspirin Supp) 300 mg NV DAILY [facility] Last Admin: 03/25/18 11:00 Dose: 300 mg Heparin Sodium (Porcine) (Heparin) 5,000 units SC Q8 [facility] Last Admin: 03/29/18 06:55 Dose: 5,000 units Dextrose/Sodium Chloride (Dextrose 5%/0.45% Ns 1000 Ml) 1,000 mls @ 50 mls/hr IV .Q20H [facility] Last Admin: 03/29/18 03:29 Dose: Not Given Cefepime HCl (Maxipime Iv 2 Gm Premix) 2 gm in 100 mls @ 100 mls/hr IVPB Q12H [facility]; Protocol Stop: 03/31/18 18:01 Last Admin: 03/29/18 06:55 Dose: 100 mls/hr Vancomycin/Sodium Chloride (Vancomycin 1 Gm/Ns 200 Ml) 1 gm in 200 mls @ 133.333 mls/hr IVPB Q24H [facility]; Protocol Stop: 03/31/18 22:01 Last Admin: 03/28/18 22:23 Dose: 133.333 mls/hr Insulin Aspart (Novolog) 0 unit SC Q6 [facility]; Protocol Last Admin: 03/29/18 06:53 Dose: 8 units Lorazepam (Ativan) 1 mg IVP Q4H PRN PRN Reason: Restlessness Last Admin: 03/29/18 03:46 Dose: 1 mg Methylprednisolone (Solu-Medrol) 40 mg IVP Q12 [facility] Last Admin: 03/28/18 22:21 Dose: 40 mg Metoprolol Tartrate (Lopressor) 5 mg IVP Q6 PRN PRN Reason: elevated blood pressure Last Admin: 03/26/18 18:27 Dose: 5 mg Metoprolol Tartrate (Lopressor) 25 mg PEG BID [facility] Last Admin: 03/28/18 20:05 Dose: 25 mg Oseltamivir Phosphate (Tamiflu Cap) 75 mg PO BID [facility]; Protocol Last Admin: 03/28/18 20:05 Dose: 75 mg Pantoprazole Sodium (Protonix Inj) 40 mg IVP DAILY [facility] Last Admin: 03/28/18 11:00 Dose: 40 mg Rosuvastatin Calcium (Crestor) 10 mg PO HS [facility] Last Admin: 03/28/18 23:04 Dose: 10 mg Vitamin A (Vitamin A & D Oint Ud Foilpak) 1 ea TOP Q6 PRN PRN Reason: Dry mouth Last Admin: 03/28/18 12:37 Dose: 1 ea - Labs Labs: 03/29/18 07:07 03/29/18 07:07 PT 12.9 SECONDS (9.7-12.2) H 03/21/18 04:41 INR 1.2 03/21/18 04:41 APTT 51 SECONDS (21-34) H 03/24/18 06:35 - Constitutional Appears: Agitated (moving all four extremities), Confused - Head Exam Head Exam: ATRAUMATIC, NORMAL INSPECTION, NORMOCEPHALIC - Eye Exam Eye Exam: EOMI, Normal appearance, PERRL. absent: Scleral icterus - ENT Exam ENT Exam: Mucous Membranes Dry (dry lips, poor dentition) - Neck Exam Neck Exam: Full ROM - Respiratory Exam Respiratory Exam: absent: NORMAL BREATHING PATTERN (mouth breathing) - GI/Abdominal Exam GI & Abdominal Exam: Soft, Normal Bowel Sounds - Extremities Exam Extremities Exam: Normal Capillary Refill. absent: Calf Tenderness, Pedal Edema, Tenderness - Neurological Exam Neurological Exam: absent: Oriented x3 - Psychiatric Exam Psychiatric exam: Agitated - Skin Skin Exam: Dry, Intact, Normal Color, Warm Assessment and Plan - Assessment and Plan (Free Text) Assessment: 67 y/o male with PMHx of pulm fibrosis, COPD, HTN and DM presented to the ED w/ worsening SOB x 2 months at 03/19. Patient coded in the ED and was in the ICU. Extuubated on 03/24 after cardiac cath at [facility] the same day. Now stable on med surg. AMS - brain encephalopathy vs seizures vs anoxic brain injury - palliative care consult ordered for discuss goals of care, family meeting suggested - Head CT (03/19/18): 9x11mm Right middle cerebral artery aneurysm - Head CT (03/22/18): Mild generalized volume loss. Previously noted right MCA aneurysm. - EEG ordered to r/o seizure activity, will f/u results - Ativan 1mg IVP Q4H PRN for agitation. Renew mittens orders daily. - Gen Surgery, Dr. Morales s/p PEG placement 03/26/18 - on glucerna, increase rate from 20 to 30 cc 03/29, reconsulted nutrition for further recs - Neurology consulted, Dr. Menjivar/Pierre; help appreciated Cardiac arrest/Respiratory failure - On admission 03/19, Initial rhythm asytole, Epi x 3 given, went into VF/VT requiring shock and Amiodarone 300mg. Elevated troponin,EKG LBBB(old). Echo reviewed with tag clerk in the ICU: preserved LV function, anteroseptal hypokinesis. Cardiac cath at [facility] on 03/24/18: non obstructive CAD -continue with HTN meds and COPD exacerbation meds: -- Lopressor 25mg po bid -- Lopressor IVP q6 prn -- Crestor 10mg po hs -- Duoneb q6 -- Solumedrol IV q12 - Claim Processor consulted, Dr Cotton, help appreciated - Protective Signal Superintendent consulted, Dr. Salazar, help appreciated Severe pulmonary fibrosis - CT chest: centrilobular emphysema and upper lobe pulmonary fibrosis - Protective Signal Superintendent consulted, Dr Salazar, rec appreciated - Duoneb q6 - Solumedrol IV q12 - Due to leukocytosis, ID started Vanco 1gm IV 124h and Cefepime 2gm IV Q12h on 03/26/18 Influenza - Influenza A + - Legionella, strep pneumo, mycoplasma negative - continue tamiflu started 03/28, stop 04/01 - contact and droplet precautions Acute renal failure - improving, BUN 45, Cr 1.3. Isolated elevated BUN. - Nephrology consulted, Dr. Jacques; recs appreciated DM - Accuchecks - ISS, medium - decreased solumedrol dose 03/29 for better glucose control; past 24h patient at BG 300s - Hypoglycemic protocol HTN - Lopressor 25mg po bid - Lopressor IVP q6 prn - Continue to monitor Supportive care - DVT: heparin 5000u sc Q8, SCDs - GI: protonix 40mg iv daily <Lynette Dawson - Last Filed: 03/30/18 17:52> Objective - Vital Signs/Intake and Output Vital Signs (last 24 hours): Temp Pulse Resp BP Pulse Ox 97.8 F 94 H 18 160/88 H 96 03/30/18 15:00 03/30/18 16:00 03/30/18 15:00 03/30/18 15:00 03/30/18 15:00 Intake and Output: 03/30/18 03/30/18 06:59 18:59 Intake Total 400 Output Total 400 Balance 0 - Medications Medications: Current Medications Acetaminophen (Tylenol 650 Mg Supp) 650 mg NV Q6 PRN PRN Reason: fever+pain Aspirin (Aspirin Supp) 300 mg NV DAILY [facility] Last Admin: 03/30/18 10:44 Dose: 300 mg Heparin Sodium (Porcine) (Heparin) 5,000 units SC Q8 [facility] Last Admin: 03/30/18 13:22 Dose: 5,000 units Cefepime HCl (Maxipime Iv 2 Gm Premix) 2 gm in 100 mls @ 100 mls/hr IVPB Q12H [facility]; Protocol Stop: 03/31/18 18:01 Last Admin: 03/30/18 05:20 Dose: 100 mls/hr Vancomycin/Sodium Chloride (Vancomycin 1 Gm/Ns 200 Ml) 1 gm in 200 mls @ 133.3 33 mls/hr IVPB Q24H [facility]; Protocol Stop: 03/31/18 22:01 Last Admin: 03/29/18 23:00 Dose: 133.333 mls/hr Sodium Chloride (Sodium Chloride 0.45%) 1,000 mls @ 75 mls/hr IV .[id number] [facility] Last Admin: 03/30/18 15:25 Dose: 75 mls/hr Insulin Aspart (Novolog) 0 unit SC Q6 [facility]; Protocol Last Admin: 03/30/18 13:21 Dose: 3 units Insulin Glargine (Lantus) 10 unit SC HS [facility] Last Admin: 03/29/18 22:58 Dose: 10 units Lorazepam (Ativan) 1 mg IVP Q4H PRN PRN Reason: Restlessness Last Admin: 03/29/18 23:11 Dose: 1 mg Losartan Potassium (Cozaar) 25 mg PEG DAILY [facility] Last Admin: 03/30/18 10:21 Dose: 25 mg Methylprednisolone (Solu-Medrol) 40 mg IVP DAILY [facility] Last Admin: 03/30/18 10:21 Dose: 40 mg Metoprolol Tartrate (Lopressor) 5 mg IVP Q6 PRN PRN Reason: elevated blood pressure Last Admin: 03/30/18 10:21 Dose: 5 mg Metoprolol Tartrate (Lopressor) 25 mg PEG BID [facility] Last Admin: 03/30/18 10:20 Dose: 25 mg Pantoprazole Sodium (Protonix Susp) 40 mg PO DAILY [facility] Rosuvastatin Calcium (Crestor) 10 mg PO HS [facility] Last Admin: 03/29/18 22:58 Dose: 10 mg Vitamin A (Vitamin A & D Oint Ud Foilpak) 1 ea TOP Q6 PRN PRN Reason: Dry mouth Last Admin: 03/30/18 05:40 Dose: 1 ea Vitamin A (Vitamin A & D Oint Ud Foilpak) 1 ea TOP Q8 PRN PRN Reason: Dry mouth - Labs Labs: 03/30/18 09:30 03/30/18 09:30 PT 12.9 SECONDS (9.7-12.2) H 03/21/18 04:41 INR 1.2 03/21/18 04:41 APTT 51 SECONDS (21-34) H 03/24/18 06:35 Attending/Attestation - Attestation I have personally seen and examined this patient.: Yes I have fully participated in the care of the patient.: Yes I have reviewed all pertinent clinical information, including history, physical exam and plan: Yes Notes (Text): Seen and examined. had long discussion with the patient's daughter and son at bedside. Dr Salazar spoke to them about his prognosis. Patient is extubated,moving all four extremities and shaking his head,purposeless movements. He is full code at this time we will continue antibiotics and solumedrol. Assessment and the plan discussed with the resident and I agree with the documentation
[2018-03-29 08:26] LABS: LYMPHOCYTE 3 % (20-40); MONOCYTE 3 % (0-10); MYELOCYTE 1 % (0-0); NEUTROPHIL 93 % (50-75); PLATELET ESTIMATE NORMAL (NORMAL); TOTAL CELLS COUNTED 100
[2018-03-29 08:27] LABS: ANISOCYTOSIS SLIGHT; POIKILOCYTOSIS SLIGHT
[2018-03-29] MEDS: MethylPREDNISolone 40 mg Vial IVP SCH ×2 (09:32→10:25)
[2018-03-29] MEDS: Vitamins A & D Oint UD Foilpak TOP PRN (09:32)
--- NOTE | 2018-03-29 21:38 | CP.PCM.PN ---
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 He is arouseable only to painful stimuli, with brainstem reflexes intact. There are no seizures noted visually. On exam: MOving all extremities equally. PERRL. Corneals present right more than left. NO verbal output. Does not follow commands. Gait not tested. +2 dtr. Toes downgoing. Clonus bilaterally. Objective - Vital Signs/Intake and Output Vital Signs (last 24 hours): Temp Pulse Resp BP Pulse Ox 98.4 F 83 20 160/93 H 94 L 03/29/18 07:00 03/29/18 12:49 03/29/18 07:00 03/29/18 09:32 03/29/18 07:00 Intake and Output: 03/29/18 03/29/18 06:59 18:59 Output Total 400 Balance -400 - Medications Medications: Current Medications Albuterol/Ipratropium (Duoneb 3 Mg/0.5 Mg (3 Ml) Ud) 3 ml INH RQ6 [facility] Last Admin: 03/29/18 13:43 Dose: Not Given Aspirin (Aspirin Supp) 300 mg [place] DAILY [facility] Last Admin: 03/29/18 10:38 Dose: 300 mg Heparin Sodium (Porcine) (Heparin) 5,000 units SC Q8 [facility] Last Admin: 03/29/18 13:11 Dose: 5,000 units Dextrose/Sodium Chloride (Dextrose 5%/0.45% Ns 1000 Ml) 1,000 mls @ 50 mls/hr IV .Q20H [facility] Last Admin: 03/29/18 09:33 Dose: 50 mls/hr Cefepime HCl (Maxipime Iv 2 Gm Premix) 2 gm in 100 mls @ 100 mls/hr IVPB Q12H [facility]; Protocol Stop: 03/31/18 18:01 Last Admin: 03/29/18 06:55 Dose: 100 mls/hr Vancomycin/Sodium Chloride (Vancomycin 1 Gm/Ns 200 Ml) 1 gm in 200 mls @ 133.333 mls/hr IVPB Q24H [facility]; Protocol Stop: 03/31/18 22:01 Last Admin: 03/28/18 22:23 Dose: 133.333 mls/hr Insulin Aspart (Novolog) 0 unit SC Q6 [facility]; Protocol Last Admin: 03/29/18 12:21 Dose: 6 units Insulin Glargine (Lantus) 10 unit SC HS [facility] Lorazepam (Ativan) 1 mg IVP Q4H PRN PRN Reason: Restlessness Last Admin: 03/29/18 08:54 Dose: 1 mg Losartan Potassium (Cozaar) 25 mg PEG DAILY [facility] Last Admin: 03/29/18 10:38 Dose: 25 mg Methylprednisolone (Solu-Medrol) 40 mg IVP DAILY [facility] Last Admin: 03/29/18 10:25 Dose: Not Given Metoprolol Tartrate (Lopressor) 5 mg IVP Q6 PRN PRN Reason: elevated blood pressure Last Admin: 03/26/18 18:27 Dose: 5 mg Metoprolol Tartrate (Lopressor) 25 mg PEG BID [facility] Last Admin: 03/29/18 09:32 Dose: 25 mg Pantoprazole Sodium (Protonix Inj) 40 mg IVP DAILY [facility] Last Admin: 03/29/18 10:38 Dose: 40 mg Rosuvastatin Calcium (Crestor) 10 mg PO HS [facility] Last Admin: 03/28/18 23:04 Dose: 10 mg Vitamin A (Vitamin A & D Oint Ud Foilpak) 1 ea TOP Q6 PRN PRN Reason: Dry mouth Last Admin: 03/29/18 09:32 Dose: 1 ea Vitamin A (Vitamin A & D Oint Ud Foilpak) 1 ea TOP Q8 PRN PRN Reason: Dry mouth - Labs Labs: 03/29/18 07:07 03/29/18 07:07 PT 12.9 SECONDS (9.7-12.2) H 03/21/18 04:41 INR 1.2 03/21/18 04:41 APTT 51 SECONDS (21-34) H 03/24/18 06:35 Assessment and Plan - Assessment and Plan (Free Text) Assessment: Patient in a vegetative state. WE will monitor his neurological progress. Dr. Bharati Teran MD DPN [facility]
[2018-03-29] MEDS: (Lantus) Insulin Glargine, Recombinant SC SCH (22:58)
[2018-03-29] MEDS: Vancomycin 1 gm/NS 200 ml 1 GM/200 ML BAG IVPB SCH (23:00)
[2018-03-30] MEDS: (Novolog) Insulin Aspart, Recombinant 100 u/ml 10 ml vial SC SCH ×5 (01:10→23:43)
[2018-03-30] MEDS: Albuterol-Ipratrop 3 mg / 0.5 (3 ml) UD INH SCH ×2 (01:24→08:20)
[2018-03-30] MEDS: Cefepime IV 2 gm in Dextrose 2 GM/100 ML BAG IVPB SCH ×2 (05:20→18:33)
[2018-03-30] MEDS: Vitamins A & D Oint UD Foilpak TOP PRN ×4 (05:40→22:45)
[2018-03-30 10:04] LABS: BASO % 0.1 % (0.0-2.0); EOS # 0.1 K/uL (0.0-0.7); EOS % 0.4 % (0.0-4.0); HEMOGLOBIN 13.1 g/dL (12.0-18.0); LYMPH # 1.8 K/uL (1.0-4.3); LYMPH % 7.6 % (20.0-40.0); MEAN CELL VOLUME 90.8 fL (80.0-94.0); MEAN CORPUSCULAR HEMOGLOBIN 29.2 pg (27.0-31.0); MEAN CORPUSCULAR HGB CONC 32.2 g/dL (33.0-37.0); MEAN PLATELET VOLUME 11.3 fL (7.2-11.7); MONO # 1.1 K/uL (0.0-0.8); MONO % 4.6 % (0.0-10.0); NEUT # 20.4 K/uL (1.8-7.0); NEUT % 87.3 % (50.0-75.0); PLATELET COUNT 156 K/uL (130-400); RBC 4.47 Mil/uL (4.40-5.90); RED CELL DISTRIBUTION WIDTH 14.3 % (11.5-14.5); WHITE BLOOD COUNT 23.4 K/uL (4.8-10.8)
[2018-03-30] MEDS: Metoprolol 1 mg/ml Inj IVP PRN (10:21)
[2018-03-30] MEDS: MethylPREDNISolone 40 mg Vial IVP SCH (10:21)
[2018-03-30 10:22] LABS: ALBUMIN 3.2 g/dL (3.5-5.0); ALT/SGPT 35 U/L (21-72); AST/SGOT 23 U/L (17-59); BLOOD UREA NITROGEN 47 mg/dL (9-20); CALCIUM 9.1 mg/dl (8.6-10.4); GFR NON-AFRICAN AMERICAN 51
[2018-03-30 10:31] LABS: LYMPHOCYTE 9 % (20-40); MONOCYTE 4 % (0-10); NEUTROPHIL 87 % (50-75); PLATELET ESTIMATE NORMAL (NORMAL); TOTAL CELLS COUNTED 100
--- NOTE | 2018-03-30 13:22 | CP.PCM.PCO ---
Physician Communication Note - Physician Communication Note Physician Communication Note: Family meeting tomorrow at 11 am
--- NOTE | 2018-03-30 14:18 | CP.PCM.PN ---
Subjective - Date & Time of Evaluation Date of Evaluation: 03/30/18 Time of Evaluation: 14:17 - Subjective Subjective: Neuro Follow-Up Note: Mr. Mejia was evaluated this afternoon at bedside. Daughter is at bedside. Per daughter pt has been sleepy today. ROS unobtainable 2/2 pt's condition. Objective - Vital Signs/Intake and Output Vital Signs (last 24 hours): Temp Pulse Resp BP Pulse Ox 100.9 F H 109 H 20 144/107 H 94 L 03/30/18 08:00 03/30/18 08:00 03/30/18 08:00 03/30/18 10:20 03/30/18 08:00 Intake and Output: 03/30/18 03/30/18 06:59 18:59 Intake Total 400 Output Total 400 Balance 0 - Medications Medications: Current Medications Acetaminophen (Tylenol 650 Mg Supp) 650 mg MA Q6 PRN PRN Reason: fever+pain Aspirin (Aspirin Supp) 300 mg [place] DAILY [facility] Last Admin: 03/30/18 10:44 Dose: 300 mg Heparin Sodium (Porcine) (Heparin) 5,000 units SC Q8 [facility] Last Admin: 03/30/18 13:22 Dose: 5,000 units Cefepime HCl (Maxipime Iv 2 Gm Premix) 2 gm in 100 mls @ 100 mls/hr IVPB Q12H [facility]; Protocol Stop: 03/31/18 18:01 Last Admin: 03/30/18 05:20 Dose: 100 mls/hr Vancomycin/Sodium Chloride (Vancomycin 1 Gm/Ns 200 Ml) 1 gm in 200 mls @ 133.333 mls/hr IVPB Q24H [facility]; Protocol Stop: 03/31/18 22:01 Last Admin: 03/29/18 23:00 Dose: 133.333 mls/hr Insulin Aspart (Novolog) 0 unit SC Q6 [facility]; Protocol Last Admin: 03/30/18 13:21 Dose: 3 units Insulin Glargine (Lantus) 10 unit SC HS [facility] Last Admin: 03/29/18 22:58 Dose: 10 units Lorazepam (Ativan) 1 mg IVP Q4H PRN PRN Reason: Restlessness Last Admin: 03/29/18 23:11 Dose: 1 mg Losartan Potassium (Cozaar) 25 mg PEG DAILY [facility] Last Admin: 03/30/18 10:21 Dose: 25 mg Methylprednisolone (Solu-Medrol) 40 mg IVP DAILY [facility] Last Admin: 03/30/18 10:21 Dose: 40 mg Metoprolol Tartrate (Lopressor) 5 mg IVP Q6 PRN PRN Reason: elevated blood pressure Last Admin: 03/30/18 10:21 Dose: 5 mg Metoprolol Tartrate (Lopressor) 25 mg PEG BID [facility] Last Admin: 03/30/18 10:20 Dose: 25 mg Pantoprazole Sodium (Protonix Susp) 40 mg PO DAILY [facility] Rosuvastatin Calcium (Crestor) 10 mg PO HS [facility] Last Admin: 03/29/18 22:58 Dose: 10 mg Vitamin A (Vitamin A & D Oint Ud Foilpak) 1 ea TOP Q6 PRN PRN Reason: Dry mouth Last Admin: 03/30/18 05:40 Dose: 1 ea Vitamin A (Vitamin A & D Oint Ud Foilpak) 1 ea TOP Q8 PRN PRN Reason: Dry mouth - Labs Labs: 03/30/18 09:30 03/30/18 09:30 PT 12.9 SECONDS (9.7-12.2) H 03/21/18 04:41 INR 1.2 03/21/18 04:41 APTT 51 SECONDS (21-34) H 03/24/18 06:35 - Constitutional Appears: Other (sleepy, drowsy; appears comfortable) - Head Exam Head Exam: ATRAUMATIC, NORMAL INSPECTION, NORMOCEPHALIC - Eye Exam Eye Exam: PERRL Pupil Exam: NORMAL ACCOMODATION, PERRL - ENT Exam ENT Exam: Mucous Membranes Moist - Neck Exam Neck Exam: Full ROM, Normal Inspection - Respiratory Exam Respiratory Exam: NORMAL BREATHING PATTERN - GI/Abdominal Exam GI & Abdominal Exam: Soft Additional comments: peg - Extremities Exam Extremities Exam: Full ROM (moves all extremities independently). absent: Calf Tenderness, Pedal Edema - Back Exam Back Exam: Full ROM - Neurological Exam Neurological Exam: Altered, Reflexes Normal Additional comments: Nonverbal; remains extubated Unable to follow commands; drowsy, sleepy today Moves all extremities independently; generalized weakness noted today compared to my last visit with the pt Reflexes brisk Unable to test fine motor and sensation 2/2 pt's condition No tremors or clonus noted. - Psychiatric Exam Psychiatric exam: absent: Normal Affect, Normal Mood (drowsy, nonverbal) - Skin Skin Exam: Normal Color Assessment and Plan (1) Cardiac arrest Assessment & Plan: Imaging reviewed: Head CT (03/26/18): Limited study secondary to suboptimal patient positioning and technique. 1. 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 Further evaluation with CT angiogram of the head and neck is recommended for further evaluation. Additional etiologies are not excluded. In addition, correlation with MRI would also be helpful if clinically indicated. 2. Sinus mucosal disease as above. Head CT (03/19/18): 9x11mm Right middle cerebral artery aneurysm Head CT (03/22/18): Mild generalized volume loss. Previously noted right MCA aneurysm. Continuous EEG (03/29/18): shows slowing per Dr. Menjivar; final report pending -Patient is sleepy today. Remains extubated. Unable to follow commands, remains non-verbal, not alert or oriented. -During cardiac arrest patient was down for about a possible 28 minutes. -Current neurological status likely secondary to seizure or anoxic brain injury. -Continue ASA, Statin, and Heparin -Palliative care to meet with family tentatively tomorrow morning for goals of care. Case discussed with Dr. Menjivar Status: Acute
--- NOTE | 2018-03-30 14:19 | CP.PCM.PN ---
<Samantha Joe - Last Filed: 03/30/18 15:49> Subjective - Date & Time of Evaluation Date of Evaluation: 03/30/18 Time of Evaluation: 14:19 - Subjective Subjective: Medicine Progress Note for Dr. Dawson Patient seen and examined at bedside this morning. Patient's daughter at bedside reports no changes in patient's behavior compared to yesterday. Due to patient condition ROS unable to be obtained. Palliative care meeting scheduled at 11am 03/31. Patient's daughter states she and her mother (patient's ) will be in attendance. Objective - Vital Signs/Intake and Output Vital Signs (last 24 hours): Temp Pulse Resp BP Pulse Ox 100.9 F H 109 H 20 144/107 H 94 L 03/30/18 08:00 03/30/18 08:00 03/30/18 08:00 03/30/18 10:20 03/30/18 08:00 Intake and Output: 03/30/18 03/30/18 06:59 18:59 Intake Total 400 Output Total 400 Balance 0 - Medications Medications: Current Medications Acetaminophen (Tylenol 650 Mg Supp) 650 mg AK Q6 PRN PRN Reason: fever+pain Aspirin (Aspirin Supp) 300 mg AK DAILY [facility] Last Admin: 03/30/18 10:44 Dose: 300 mg Heparin Sodium (Porcine) (Heparin) 5,000 units SC Q8 [facility] Last Admin: 03/30/18 13:22 Dose: 5,000 units Cefepime HCl (Maxipime Iv 2 Gm Premix) 2 gm in 100 mls @ 100 mls/hr IVPB Q12H [facility]; Protocol Stop: 03/31/18 18:01 Last Admin: 03/30/18 05:20 Dose: 100 mls/hr Vancomycin/Sodium Chloride (Vancomycin 1 Gm/Ns 200 Ml) 1 gm in 200 mls @ 133.333 mls/hr IVPB Q24H [facility]; Protocol Stop: 03/31/18 22:01 Last Admin: 03/29/18 23:00 Dose: 133.333 mls/hr Insulin Aspart (Novolog) 0 unit SC Q6 [facility]; Protocol Last Admin: 03/30/18 13:21 Dose: 3 units Insulin Glargine (Lantus) 10 unit SC HS [facility] Last Admin: 03/29/18 22:58 Dose: 10 units Lorazepam (Ativan) 1 mg IVP Q4H PRN PRN Reason: Restlessness Last Admin: 03/29/18 23:11 Dose: 1 mg Losartan Potassium (Cozaar) 25 mg PEG DAILY [facility] Last Admin: 03/30/18 10:21 Dose: 25 mg Methylprednisolone (Solu-Medrol) 40 mg IVP DAILY [facility] Last Admin: 03/30/18 10:21 Dose: 40 mg Metoprolol Tartrate (Lopressor) 5 mg IVP Q6 PRN PRN Reason: elevated blood pressure Last Admin: 03/30/18 10:21 Dose: 5 mg Metoprolol Tartrate (Lopressor) 25 mg PEG BID [facility] Last Admin: 03/30/18 10:20 Dose: 25 mg Pantoprazole Sodium (Protonix Susp) 40 mg PO DAILY [facility] Rosuvastatin Calcium (Crestor) 10 mg PO HS [facility] Last Admin: 03/29/18 22:58 Dose: 10 mg Vitamin A (Vitamin A & D Oint Ud Foilpak) 1 ea TOP Q6 PRN PRN Reason: Dry mouth Last Admin: 03/30/18 05:40 Dose: 1 ea Vitamin A (Vitamin A & D Oint Ud Foilpak) 1 ea TOP Q8 PRN PRN Reason: Dry mouth - Labs Labs: 03/30/18 09:30 03/30/18 09:30 PT 12.9 SECONDS (9.7-12.2) H 03/21/18 04:41 INR 1.2 03/21/18 04:41 APTT 51 SECONDS (21-34) H 03/24/18 06:35 Assessment and Plan - Assessment and Plan (Free Text) Assessment: 67 y/o male with PMHx of pulm fibrosis, COPD, HTN and DM presented to the ED w/ worsening SOB x 2 months at 03/19. Patient coded in the ED and was in the ICU. Extuubated on 03/24 after cardiac cath at [facility] the same day. Now stable on med surg. AMS - brain encephalopathy vs seizures vs anoxic brain injury - palliative care consult ordered for discuss goals of care, family meeting 11am on 03/31. - Head CT (03/19/18): 9x11mm Right middle cerebral artery aneurysm - Head CT (03/22/18): Mild generalized volume loss. Previously noted right MCA aneurysm. - EEG ordered to r/o seizure activity 24h EEG 03/29-03/[address] Menjivar. Per Dr. Menjivar patient not going to return to baseline. - Ativan 1mg IVP Q4H PRN for agitation. Renew mittens orders daily. - s/p PEG placement 03/26/18 - Neurology consulted, Dr. Menjivar/Pierre; help appreciated Cardiac arrest/Respiratory failure - On admission 03/19, Initial rhythm asytole, Epi x 3 given, went into VF/VT requiring shock and Amiodarone 300mg. Elevated troponin,EKG LBBB(old). Echo reviewed with space studies faculty member in the ICU: preserved LV function, anteroseptal hypokinesis. Cardiac cath at [facility] on 03/24/18: non obstructive CAD -continue with HTN meds and COPD exacerbation meds: -- Lopressor 25mg po bid -- Lopressor IVP q6 prn -- Crestor 10mg po hs -- Duoneb q6 -- Solumedrol IV q12 - Receptionist/Telephone Operator consulted, Dr Cotton, help appreciated - Supervisor In Circuit Testing consulted, Dr. Salazar, help appreciated Severe pulmonary fibrosis - CT chest: centrilobular emphysema and upper lobe pulmonary fibrosis - Supervisor In Circuit Testing consulted, Dr Salazar, rec appreciated - Duoneb q6 - Solumedrol IV q12 - Due to leukocytosis, ID started Vanco 1gm IV 124h and Cefepime 2gm IV Q12h on 03/26/18 - tylenol PRN for temp > 100.4 - temp increased to 100.8 03/30 - and WBC 16.7 to 23.4 -> f/u STAT blood cx, CXR, urine cx Influenza - Influenza A + - Legionella, strep pneumo, mycoplasma negative - continue tamiflu started 03/28, stop 04/01 - contact and droplet precautions Acute renal failure - improving, BUN 45, Cr 1.3. Isolated elevated BUN. - Nephrology consulted, Dr. Jacques; recs appreciated DM - Accuchecks - ISS, medium - decreased solumedrol dose 03/29 for better glucose control; past 24h patient at BG 300s - Hypoglycemic protocol HTN - Lopressor 25mg po bid - Lopressor IVP q6 prn - Continue to monitor Supportive care - DVT: heparin 5000u sc Q8, SCDs - GI: protonix 40mg iv daily <Lynette Dawson - Last Filed: 03/30/18 17:44> Objective - Vital Signs/Intake and Output Vital Signs (last 24 hours): Temp Pulse Resp BP Pulse Ox 97.8 F 94 H 18 160/88 H 96 03/30/18 15:00 03/30/18 16:00 03/30/18 15:00 03/30/18 15:00 03/30/18 15:00 Intake and Output: 03/30/18 03/30/18 06:59 18:59 Intake Total 400 Output Total 400 Balance 0 - Medications Medications: Current Medications Acetaminophen (Tylenol 650 Mg Supp) 650 mg AK Q6 PRN PRN Reason: fever+pain Aspirin (Aspirin Supp) 300 mg AK DAILY [facility] Last Admin: 03/30/18 10:44 Dose: 300 mg Heparin Sodium (Porcine) (Heparin) 5,000 units SC Q8 [facility] Last Admin: 03/30/18 13:22 Dose: 5,000 units Cefepime HCl (Maxipime Iv 2 Gm Premix) 2 gm in 100 mls @ 100 mls/hr IVPB Q12H [facility]; Protocol Stop: 03/31/18 18:01 Last Admin: 03/30/18 05:20 Dose: 100 mls/hr Vancomycin/Sodium Chloride (Vancomycin 1 Gm/Ns 200 Ml) 1 gm in 200 mls @ 133.333 mls/hr IVPB Q24H [facility]; Protocol Stop: 03/31/18 22:01 Last Admin: 03/29/18 23:00 Dose: 133.333 mls/hr Sodium Chloride (Sodium Chloride 0.45%) 1,000 mls @ 75 mls/hr IV .[id number] [facility] Last Admin: 03/30/18 15:25 Dose: 75 mls/hr Insulin Aspart (Novolog) 0 unit SC Q6 [facility]; Protocol Last Admin: 03/30/18 13:21 Dose: 3 units Insulin Glargine (Lantus) 10 unit SC HS [facility] Last Admin: 03/29/18 22:58 Dose: 10 units Lorazepam (Ativan) 1 mg IVP Q4H PRN PRN Reason: Restlessness Last Admin: 03/29/18 23:11 Dose: 1 mg Losartan Potassium (Cozaar) 25 mg PEG DAILY [facility] Last Admin: 03/30/18 10:21 Dose: 25 mg Methylprednisolone (Solu-Medrol) 40 mg IVP DAILY [facility] Last Admin: 03/30/18 10:21 Dose: 40 mg Metoprolol Tartrate (Lopressor) 5 mg IVP Q6 PRN PRN Reason: elevated blood pressure Last Admin: 03/30/18 10:21 Dose: 5 mg Metoprolol Tartrate (Lopressor) 25 mg PEG BID [facility] Last Admin: 03/30/18 10:20 Dose: 25 mg Pantoprazole Sodium (Protonix Susp) 40 mg PO DAILY [facility] Rosuvastatin Calcium (Crestor) 10 mg PO HS [facility] Last Admin: 03/29/18 22:58 Dose: 10 mg Vitamin A (Vitamin A & D Oint Ud Foilpak) 1 ea TOP Q6 PRN PRN Reason: Dry mouth Last Admin: 03/30/18 05:40 Dose: 1 ea Vitamin A (Vitamin A & D Oint Ud Foilpak) 1 ea TOP Q8 PRN PRN Reason: Dry mouth - Labs Labs: 03/30/18 09:30 03/30/18 09:30 PT 12.9 SECONDS (9.7-12.2) H 03/21/18 04:41 INR 1.2 03/21/18 04:41 APTT 51 SECONDS (21-34) H 03/24/18 06:35 Attending/Attestation - Attestation I have personally seen and examined this patient.: Yes I have fully participated in the care of the patient.: Yes I have reviewed all pertinent clinical information, including history, physical exam and plan: Yes Notes (Text): seen and examined. Patient's daughter at bedside. patient is shaking his head side to side. no eye contacts,no response to touch or pain.Noted spontaneous movements of arm. occasional tachypnea. s/p fever. chext x ray reviewed. no new chnages we will continue cefepime and vanco. repeat blood culture had 24hours EEG. EEG reviewed with DR Menjivar. slow activity,not good prognosis,unlikely will be back to his baseline I spoke to her daughter at bedside. Not decided about DNR. Had long discussion about DNR/DNI and palliative care. She wants her mother to decide tomorrow. we will have family meeting tomorrow
[2018-03-30] MEDS: Sodium Chloride 0.45% 1,000 ML IV SCH (15:25)
--- NOTE | 2018-03-30 16:17 | RAD ---
HISTORY: fever COMPARISON: Chest x-ray performed 03/25/18 TECHNIQUE: Chest, one view. FINDINGS: LUNGS: Moderate pulmonary venous congestion. Central vascular prominence. PLEURA: No significant pleural effusion identified. No definite pneumothorax . CARDIOVASCULAR: Cardiomegaly. Ectatic aorta. OSSEOUS STRUCTURES: Degenerative changes. VISUALIZED UPPER ABDOMEN: Unremarkable. OTHER FINDINGS: None. IMPRESSION: Cardiomegaly. Moderate pulmonary venous congestion. Central vascular prominence.
--- NOTE | 2018-03-30 21:04 | PCM.VEEG ---
Video EEG - Procedure Start Date: 03/29/18 Start Time: 15:00 Technical Summary: START TIME: 15:00 03/29/18 END TIME: 03/30/18 TECHNICAL SUMMARY: Electrodes were placed according to the 10-20 international electrode system by radiologic technologist. Total of 23 electrodes (21 EEG and 2 EKG) were placed. EEG activity was digitally recorded referentially to P1/P2 or A1/A2 electrodes. Continuous monitoring with EEG was performed using digital analysis for spike detection. The [employer] spike and seizure detection algorithms were used for digital EEG analysis throughout the monitoring period, to screen the EEG in real-time and gege the data file with pointers to electrographic seizures and interictal discharges. EEG was screened for electrographic seizures and interictal discharges by a technologist. Physician, epileptologist reviewed detections, as well as extensive random samples and whole EEG study in detail. Digital EEG Analysis: was carried out including FFT (Fast Fourier Transform), R2D2 (Rhythmicity Run Detection and Display), Relative Asymmetry Spectrogram, and voltage plot by the [employer] Software. The Qualitative EEG analysis, and the voltage plot mapping were used for detection of foci of paroxysmal and abnormal electrical cortical activity. PHYSICIAN REPORT: Description of the study: EEG findings during wakefulness: The recording was continuous with no spontaneous variability and reactivity to stimuli. During wakefulness, well-modulated, medium voltage alpha activity of 6 Hz predominated in the background. Alpha activity was not reactive to eye opening and eye closing. Beta activity was predominated in the fronto-central regions. There were no focal or diffuse abnormalities seen during wakefulness. There was no normal sleep but rather the preponderance of spindles in all guillermo. Interictal non-epileptiform abnormalities: None. Interictal epileptiform abnormalities: None. Ictal epileptiform abnormalities: None. Induction procedures: Photic stimulation and hyperventilation were done and did not reveal any abnormalities. IMPRESSION: This is an abnormal 24 hour VEEG. The presence of diffuse spindles throughout the record as well as a poorly reactive low amplitude background indicates severe encephalopathy/coma state. The absence of epileptiform discharges during the EEG recording does not rule out the diagnosis of a seizure disorder. Bharati Teran MD DPN [facility]
--- NOTE | 2018-03-30 21:58 | CP.PCM.PN ---
Subjective - Date & Time of Evaluation Date of Evaluation: 03/30/18 Time of Evaluation: 14:20 - Subjective Subjective: dictated Objective - Vital Signs/Intake and Output Vital Signs (last 24 hours): Temp Pulse Resp BP Pulse Ox 97.8 F 94 H 18 156/81 H 96 03/30/18 15:00 03/30/18 16:00 03/30/18 15:00 03/30/18 18:33 03/30/18 15:00 Intake and Output: 03/30/18 03/31/18 18:59 06:59 Output Total 300 Balance -300 - Medications Medications: Current Medications Acetaminophen (Tylenol 650 Mg Supp) 650 mg IL Q6 PRN PRN Reason: fever+pain Aspirin (Aspirin Supp) 300 mg IL DAILY [facility] Last Admin: 03/30/18 10:44 Dose: 300 mg Heparin Sodium (Porcine) (Heparin) 5,000 units SC Q8 [facility] Last Admin: 03/30/18 13:22 Dose: 5,000 units Cefepime HCl (Maxipime Iv 2 Gm Premix) 2 gm in 100 mls @ 100 mls/hr IVPB Q12H [facility]; Protocol Stop: 03/31/18 18:01 Last Admin: 03/30/18 18:33 Dose: 100 mls/hr Vancomycin/Sodium Chloride (Vancomycin 1 Gm/Ns 200 Ml) 1 gm in 200 mls @ 133.333 mls/hr IVPB Q24H [facility]; Protocol Stop: 03/31/18 22:01 Last Admin: 03/29/18 23:00 Dose: 133.333 mls/hr Sodium Chloride (Sodium Chloride 0.45%) 1,000 mls @ 75 mls/hr IV .[id number] [facility] Last Admin: 03/30/18 15:25 Dose: 75 mls/hr Insulin Aspart (Novolog) 0 unit SC Q6 [facility]; Protocol Last Admin: 03/30/18 18:34 Dose: 6 units Insulin Glargine (Lantus) 10 unit SC HS [facility] Last Admin: 03/29/18 22:58 Dose: 10 units Lorazepam (Ativan) 1 mg IVP Q4H PRN PRN Reason: Restlessness Last Admin: 03/29/18 23:11 Dose: 1 mg Losartan Potassium (Cozaar) 25 mg PEG DAILY [facility] Last Admin: 03/30/18 10:21 Dose: 25 mg Methylprednisolone (Solu-Medrol) 40 mg IVP DAILY [facility] Last Admin: 03/30/18 10:21 Dose: 40 mg Metoprolol Tartrate (Lopressor) 5 mg IVP Q6 PRN PRN Reason: elevated blood pressure Last Admin: 03/30/18 10:21 Dose: 5 mg Metoprolol Tartrate (Lopressor) 25 mg PEG BID [facility] Last Admin: 03/30/18 18:33 Dose: 25 mg Pantoprazole Sodium (Protonix Susp) 40 mg PO DAILY [facility] Rosuvastatin Calcium (Crestor) 10 mg PO HS [facility] Last Admin: 03/29/18 22:58 Dose: 10 mg Vitamin A (Vitamin A & D Oint Ud Foilpak) 1 ea TOP Q6 PRN PRN Reason: Dry mouth Last Admin: 03/30/18 05:40 Dose: 1 ea Vitamin A (Vitamin A & D Oint Ud Foilpak) 1 ea TOP Q8 PRN PRN Reason: Dry mouth Last Admin: 03/30/18 15:20 Dose: 1 ea - Labs Labs: 03/30/18 09:30 03/30/18 09:30 PT 12.9 SECONDS (9.7-12.2) H 03/21/18 04:41 INR 1.2 03/21/18 04:41 APTT 51 SECONDS (21-34) H 03/24/18 06:35
[2018-03-30] MEDS: Vancomycin 1 gm/NS 200 ml 1 GM/200 ML BAG IVPB SCH (22:35)
[2018-03-30] MEDS: (Lantus) Insulin Glargine, Recombinant SC SCH (22:37)
[2018-03-31] MEDS: Sodium Chloride 0.45% 1,000 ML IV SCH ×2 (03:40→18:00)
--- NOTE | 2018-03-31 05:15 | PN ---
DATE: 03/30/2018 INFECTIOUS DISEASE FOLLOWUP SUBJECTIVE: The patient's T-max is 100.9 today. He was still restless, unresponsive. His daughter was at the bedside. PHYSICAL EXAMINATION: VITAL SIGNS: Pulse is 109, blood pressure 149/102, respirations are 20. HEENT: Head is atraumatic and normocephalic. LUNGS: Have occasional rhonchi, otherwise clear. HEART: S1, S2 are regular. ABDOMEN: Soft, nontender. EXTREMITIES: Have no edema. CENTRAL NERVOUS SYSTEM: He is unconscious, comatosed, and has these weird movements. LABORATORY DATA: White count is 23.4, hemoglobin 13.1, hematocrit 40.6, platelet count is 156. Sodium is 153, chlorides are 123, BUN is 47, creatinine is 1.4. Micro marsh, cultures have all been negative. He was on precaution as influenza came out positive, but I think that is because he may have had influenza vaccine. It is a very low titer to be entertained as flu, but his x-ray shows cardiomegaly, moderate pulmonary venous congestion, central vascular prominence, and I would renew the antibiotics as he is supposed to be on. Let me see if he is getting or not. He is on cefepime 2 g every 12 hours, and I would also need to see if he is on vancomycin as I had given that his lips have some ulcerations at this time because of previous intubation. He is also on Solu-Medrol 40 daily, and he is on vancomycin 1 g daily. I will renew that, and we will follow. Prognosis remains poor as the patient remains lethargic and unresponsive, probably has anoxic encephalopathy. We will follow. Prognosis is very poor. Rizwana Reddy MD
[2018-03-31] MEDS: Cefepime IV 2 gm in Dextrose 2 GM/100 ML BAG IVPB SCH ×2 (05:34→18:40)
[2018-03-31] MEDS: Metoprolol 1 mg/ml Inj IVP PRN (06:09)
--- NOTE | 2018-03-31 06:19 | OP ---
PROCEDURE DATE: 03/26/2018 PREOPERATIVE DIAGNOSES: 1. Myocardial infarction. 2. Pulmonary fibrosis. 3. Anoxic brain injury. 4. Dysphagia. POSTOPERATIVE DIAGNOSES: 1. Myocardial infarction. 2. Pulmonary fibrosis. 3. Anoxic brain injury. 4. Dysphagia. PROCEDURES DONE: 1. Esophagogastroduodenoscopy. 2. Percutaneous gastrostomy tube placement. SURGEON: Ayden Morales MD ASSISTANTS: MARAH Navarro; Hattie Trotter, PGY-3 resident. ANESTHESIA: General endotracheal tube anesthesia. ESTIMATED BLOOD LOSS: None. DRAINS: None. PATHOLOGY: None. COMPLICATIONS: None. INTRAOPERATIVE FINDINGS: The patient had a normal-looking esophagus with inflammation of the fundus of the stomach. Rest of the stomach mucosa appeared to be normal. DESCRIPTION OF PROCEDURE: On intraoperative steps, this is a 67 -year-old male who was admitted in ICU. The patient had MO and prolonged CPR, with possible anoxic brain injury with dysphagia, and Surgery was consulted for gastrostomy tube placement. The patient's family was consented. The patient was brought to the OR and placed supine on the patient bed. After induction of the anesthesia, the abdomen was prepped and draped in the usual sterile fashion. First, EGD/esophagogastroduodenoscopy was done by me. The stomach was inflated and now the percutaneous gastrostomy part was done. The percutaneous puncture with a needle was done in the stomach. The dimpling test as well as the transillumination test was done before the puncture and a guidewire was placed. Guidewire was placed and the guidewire was taken out through the mouth with endoscope. The tube was attached to the guidewire and the tube was pulled in the stomach and guidewire was pulled through the skin incision and tube was pulled out through the skin incision. Now, another EGD was done to confirm the placement of the tube. The esophagus, stomach and duodenum appeared normal. There was some inflammation of the antrum. There was no injury to the stomach or the esophagus identified while pulling back the scope. Now the gastrostomy tube was secured to the skin and dry sterile dressing was applied. The patient tolerated the procedure well. The patient was extubated in OR and sent to the postanesthesia care unit in stable condition. Ayden Morales MD Osmani # [id number] DUARTE
[2018-03-31] MEDS: (Novolog) Insulin Aspart, Recombinant 100 u/ml 10 ml vial SC SCH ×3 (06:44→18:50)
--- NOTE | 2018-03-31 07:07 | CP.PCM.PN ---
<Samantha Joe - Last Filed: 03/31/18 10:40> Subjective - Date & Time of Evaluation Date of Evaluation: 03/31/18 Time of Evaluation: 07:07 - Subjective Subjective: Medicine Progress Note for Dr. Dawson Patient seen and examined at bedside this morning. Patient's daughter states that patient has been more alert and following commands such as "close your eyes" in Eduardo and "open your mouth" in Swedish. Patient also acknowledged daughter when she asks if he wants a morning cup of tea; he regularly drinks tea in the morning. Daughter is more hopeful when he is not sedated and would prefer to not have him on ativan unless she lets the RN know there is agitation, which there has not been. Due to patient condition ROS unable to be obtained. Family meeting palliative care at 11am today. Objective - Vital Signs/Intake and Output Vital Signs (last 24 hours): Temp Pulse Resp BP Pulse Ox 98.7 F 92 H 20 152/105 H 97 03/31/18 06:12 03/31/18 06:12 03/31/18 06:12 03/31/18 06:12 03/31/18 06:12 Intake and Output: 03/31/18 03/31/18 06:59 18:59 Intake Total 210 Balance 210 - Medications Medications: Current Medications Acetaminophen (Tylenol 650 Mg Supp) 650 mg [place] Q6 PRN PRN Reason: fever+pain Aspirin (Aspirin Supp) 300 mg OH DAILY [facility] Last Admin: 03/30/18 10:44 Dose: 300 mg Heparin Sodium (Porcine) (Heparin) 5,000 units SC Q8 [facility] Last Admin: 03/31/18 05:34 Dose: 5,000 units Cefepime HCl (Maxipime Iv 2 Gm Premix) 2 gm in 100 mls @ 100 mls/hr IVPB Q12H [facility]; Protocol Stop: 03/31/18 18:01 Last Admin: 03/31/18 05:34 Dose: 100 mls/hr Vancomycin/Sodium Chloride (Vancomycin 1 Gm/Ns 200 Ml) 1 gm in 200 mls @ 133.333 mls/hr IVPB Q24H [facility]; Protocol Stop: 03/31/18 22:01 Last Admin: 03/30/18 22:35 Dose: 133.333 mls/hr Sodium Chloride (Sodium Chloride 0.45%) 1,000 mls @ 75 mls/hr IV .[id number] [facility] Last Admin: 03/31/18 03:40 Dose: Not Given Insulin Aspart (Novolog) 0 unit SC Q6 [facility]; Protocol Last Admin: 03/31/18 06:44 Dose: 8 units Insulin Glargine (Lantus) 10 unit SC HS [facility] Last Admin: 03/30/18 22:37 Dose: 10 units Lorazepam (Ativan) 1 mg IVP Q4H PRN PRN Reason: Restlessness Last Admin: 03/29/18 23:11 Dose: 1 mg Losartan Potassium (Cozaar) 25 mg PEG DAILY [facility] Last Admin: 03/30/18 10:21 Dose: 25 mg Methylprednisolone (Solu-Medrol) 40 mg IVP DAILY [facility] Last Admin: 03/30/18 10:21 Dose: 40 mg Metoprolol Tartrate (Lopressor) 5 mg IVP Q6 PRN PRN Reason: elevated blood pressure Last Admin: 03/31/18 06:09 Dose: 5 mg Metoprolol Tartrate (Lopressor) 25 mg PEG BID [facility] Last Admin: 03/30/18 18:33 Dose: 25 mg Pantoprazole Sodium (Protonix Susp) 40 mg PO DAILY [facility] Rosuvastatin Calcium (Crestor) 10 mg PO [facility] Last Admin: 03/30/18 22:36 Dose: 10 mg Vitamin A (Vitamin A & D Oint Ud Foilpak) 1 ea TOP Q6 PRN PRN Reason: Dry mouth Last Admin: 03/30/18 22:45 Dose: 1 ea Vitamin A (Vitamin A & D Oint Ud Foilpak) 1 ea TOP Q8 PRN PRN Reason: Dry mouth Last Admin: 03/30/18 15:20 Dose: 1 ea - Labs Labs: 03/30/18 09:30 03/30/18 09:30 PT 12.9 SECONDS (9.7-12.2) H 03/21/18 04:41 INR 1.2 03/21/18 04:41 APTT 51 SECONDS (21-34) H 03/24/18 06:35 - Constitutional Appears: Well, Non-toxic - Head Exam Head Exam: ATRAUMATIC, NORMAL INSPECTION, NORMOCEPHALIC - Eye Exam Eye Exam: EOMI, Normal appearance - ENT Exam ENT Exam: Mucous Membranes Dry - Neck Exam Neck Exam: Full ROM - Respiratory Exam Respiratory Exam: Accessory Muscle Use (occassionally), Clear to Ausculation Bilateral, NORMAL BREATHING PATTERN - Cardiovascular Exam Cardiovascular Exam: REGULAR RHYTHM - GI/Abdominal Exam GI & Abdominal Exam: Soft, Normal Bowel Sounds - Extremities Exam Extremities Exam: Normal Capillary Refill, Normal Inspection. absent: Calf Tenderness - Neurological Exam Additional comments: Patient able to follow simple commands "close your eyes" and "open your mouth", some in Swedish and some in Eduardo. - Psychiatric Exam Psychiatric exam: Normal Affect, Normal Mood - Skin Skin Exam: Dry, Intact, Normal Color, Warm Assessment and Plan - Assessment and Plan (Free Text) Assessment: 67 y/o male with PMHx of pulm fibrosis, COPD, HTN and DM presented to the ED w/ worsening SOB x 2 months at 03/19. Patient coded in the ED and was in the ICU. Extuubated on 03/24 after cardiac cath at [facility] the same day. Now stable on med surg. AMS - brain encephalopathy vs seizures vs anoxic brain injury - palliative care consult ordered for discuss goals of care, family meeting 11am on 03/31. Pending recs. - Head CT (03/19/18): 9x11mm Right middle cerebral artery aneurysm - Head CT (03/22/18): Mild generalized volume loss. Previously noted right MCA aneurysm. - EEG ordered to r/o seizure activity 24h EEG 03/29-03/[address] Menjivar. Per Dr. Menjivar patient not going to return to baseline. - Ativan 1mg IVP Q4H PRN for agitation. Family prefers to avoid ativan until they say he is agitated. - s/p PEG placement 03/26/18 - Neurology consulted, Dr. Menjivar/Pierre; help appreciated Cardiac arrest/Respiratory failure - On admission 03/19, Initial rhythm asytole, Epi x 3 given, went into VF/VT requiring shock and Amiodarone 300mg. Elevated troponin,EKG LBBB(old). Echo reviewed with quality technician fiberglass in the ICU: preserved LV function, anteroseptal hypokinesis. Cardiac cath at [facility] on 03/24/18: non obstructive CAD -continue with HTN meds and COPD exacerbation meds: -- Lopressor 25mg po bid -- Lopressor IVP q6 prn -- Crestor 10mg po hs -- Duoneb q6 -- Solumedrol 40 mg IV q12, changed from daily - Inside Sales Person consulted, Dr Cotton, help appreciated - Mail Technician consulted, Dr. Salazar, help appreciated Severe pulmonary fibrosis - CT chest: centrilobular emphysema and upper lobe pulmonary fibrosis - Duoneb q6 - Solumedrol IV q12 - Due to leukocytosis, ID started Vanco 1gm IV 124h and Cefepime 2gm IV Q12h on 03/26/18 - tylenol PRN for temp > 100.4 - temp increased to 100.8 03/30 - and WBC 16.7 to 23.4 -> f/u STAT blood cx, CXR, urine cx - Mail Technician consulted, Dr Salazar, rec appreciated Influenza - Influenza A + - Legionella, strep pneumo, mycoplasma negative - continue tamiflu started 03/28, stop 04/01 - contact and droplet precautions, remove once tamiflu course is finished - fever noted in 03/30 progress note, resolved. No growth after 24h blood cx, also pending urine cx Acute renal failure - Isolated elevated BUN. - Nephrology consulted, Dr. Jacques; recs appreciated - IVF PRN DM - Accuchecks - ISS, medium - night time lantus increased from 10 to 14 units as BG has been in the 300s, w ill continue to monitor - Hypoglycemic protocol HTN - Lopressor 25mg po bid - Lopressor IVP q6 prn - Continue to monitor Supportive care - DVT: heparin 5000u sc Q8, SCDs - GI: protonix 40mg iv daily case d/w Dr. Eunice Joe PGY1 <Lynette Dawson - Last Filed: 04/02/18 15:21> Objective - Vital Signs/Intake and Output Vital Signs (last 24 hours): Temp Pulse Resp BP Pulse Ox 97.8 F 63 20 152/94 H 99 04/02/18 07:00 04/02/18 12:00 04/02/18 07:00 04/02/18 10:26 04/02/18 07:00 Intake and Output: 04/02/18 04/02/18 06:59 18:59 Intake Total 600 600 Output Total 1000 500 Balance -400 100 - Medications Medications: Current Medications Acetaminophen (Tylenol 650 Mg Supp) 650 mg OH Q6 PRN PRN Reason: fever+pain Aspirin (Aspirin Supp) 300 mg OH DAILY [facility] Last Admin: 04/02/18 10:27 Dose: 300 mg Heparin Sodium (Porcine) (Heparin) 5,000 units SC Q8 [facility] Last Admin: 04/02/18 13:11 Dose: 5,000 units Sodium Chloride (Sodium Chloride 0.45%) 1,000 mls @ 75 mls/hr IV .[id number] [facility] Last Admin: 04/02/18 06:37 Dose: 75 mls/hr Cefepime HCl 2 gm/ Dextrose 50 mls @ 100 mls/hr IVPB Q12H [facility]; Protocol Last Admin: 04/02/18 06:33 Dose: 100 mls/hr Insulin Aspart (Novolog) 0 unit SC Q6 [facility]; Protocol Last Admin: 04/02/18 12:50 Dose: 3 units Insulin Glargine (Lantus) 16 unit SC [facility] Last Admin: 04/01/18 22:23 Dose: 16 unit Lorazepam (Ativan) 1 mg IVP Q4H PRN PRN Reason: Restlessness Last Admin: 03/29/18 23:11 Dose: 1 mg Losartan Potassium (Cozaar) 25 mg PEG DAILY [facility] Last Admin: 04/02/18 10:26 Dose: 25 mg Methylprednisolone (Solu-Medrol) 40 mg IVP BID [facility] Last Admin: 04/02/18 10:26 Dose: 40 mg Metoprolol Tartrate (Lopressor) 5 mg IVP Q6 PRN PRN Reason: elevated blood pressure Last Admin: 03/31/18 06:09 Dose: 5 mg Metoprolol Tartrate (Lopressor) 25 mg PEG BID [facility] Last Admin: 04/02/18 10:26 Dose: 25 mg Oseltamivir Phosphate (Tamiflu Susp) 30 mg GT BID [facility]; Protocol Stop: 04/05/18 18:31 Last Admin: 04/02/18 10:26 Dose: 30 mg Pantoprazole Sodium (Protonix Susp) 40 mg PO DAILY [facility] Last Admin: 04/02/18 10:26 Dose: 40 mg Rosuvastatin Calcium (Crestor) 10 mg PO HS [facility] Last Admin: 04/01/18 22:23 Dose: 10 mg Vitamin A (Vitamin A & D Oint Ud Foilpak) 1 ea TOP Q6 PRN PRN Reason: Dry mouth Last Admin: 03/30/18 22:45 Dose: 1 ea Vitamin A (Vitamin A & D Oint Ud Foilpak) 1 ea TOP Q8 PRN PRN Reason: Dry mouth Last Admin: 04/02/18 10:26 Dose: 1 ea - Labs Labs: 04/02/18 07:54 04/02/18 07:54 PT 12.9 SECONDS (9.7-12.2) H 03/21/18 04:41 INR 1.2 03/21/18 04:41 APTT 51 SECONDS (21-34) H 03/24/18 06:35 Attending/Attestation - Attestation I have personally seen and examined this patient.: Yes I have fully participated in the care of the patient.: Yes I have reviewed all pertinent clinical information, including history, physical exam and plan: Yes Notes (Text): Seen and examined with the resident. spoke to daughter at bedside shows daily improvement,continue antibiotics,solumedrol .PT,OT and speech evaluation
[2018-03-31 07:53] LABS: BASO # 0.1 K/uL (0.0-0.2); BASO % 0.3 % (0.0-2.0); EOS # 0.1 K/uL (0.0-0.7); EOS % 0.3 % (0.0-4.0); HEMOGLOBIN 12.5 g/dL (12.0-18.0); LYMPH # 1.2 K/uL (1.0-4.3); LYMPH % 5.4 % (20.0-40.0); MEAN CELL VOLUME 90.5 fL (80.0-94.0); MEAN CORPUSCULAR HEMOGLOBIN 28.9 pg (27.0-31.0); MEAN PLATELET VOLUME 11.1 fL (7.2-11.7); MONO # 0.8 K/uL (0.0-0.8); MONO % 3.4 % (0.0-10.0); NEUT # 20.7 K/uL (1.8-7.0); NEUT % 90.6 % (50.0-75.0); PLATELET COUNT 131 K/uL (130-400); RBC 4.31 Mil/uL (4.40-5.90); RED CELL DISTRIBUTION WIDTH 14.1 % (11.5-14.5); WHITE BLOOD COUNT 22.9 K/uL (4.8-10.8)
[2018-03-31 08:13] LABS: ALBUMIN 2.9 g/dL (3.5-5.0); ALT/SGPT 28 U/L (21-72); AST/SGOT 21 U/L (17-59); BLOOD UREA NITROGEN 56 mg/dL (9-20); CALCIUM 8.6 mg/dl (8.6-10.4); GFR NON-AFRICAN AMERICAN 51
--- NOTE | 2018-03-31 08:51 | CP.PCM.CON ---
History of Present Illness - History of Present Illness History of Present Illness: Late entry, patient seen and examined on 03/30/2018 around 3 pm Palliative consult requested by Doctor Law for goals of care discussion patient is a 67 yo male, looking much older than stated age, admitted from home with cough and chest pains X 2 weeks. This was accompanied by general weakness. CT chest in ED was significant for pulmonary fibrosis and left subpleural node. Patient was on route to the floor when he underwent cardiac arrest and Code Blue was called. Patient was successfully resuscitated, intubated and admitted to ICU. Patient is S/P cardiach cath and PEG. His condition remains very complex despite all Medical interventins applied. The EEG was done due to severe aggitation and confusion, results are pending. PMH: DM, HTN, BPH, Soc. 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 Hx: Unknown Review of Systems - Review of Systems All systems: reviewed and no additional remarkable complaints except Review of Systems: ROS unobtainable from the patient due to condition. ROS obtained from nursing. Per nursing, patient remains very agitated and heeds chemical restraints for his safety Past Patient History - Past Medical History & Family History Past Medical History?: Yes - Past Social History Smoking Status: Former Smoker - CARDIAC Hx Cardiac Disorders: Yes Hx Hypertension: Yes - PULMONARY Hx Respiratory Disorders: No - NEUROLOGICAL Hx Neurological Disorder: No - HEENT Hx HEENT Problems: No - RENAL Hx Chronic Kidney Disease: No - ENDOCRINE/METABOLIC Hx Endocrine Disorders: Yes Hx Diabetes Mellitus Type 2: Yes - HEMATOLOGICAL/ONCOLOGICAL Hx Blood Disorders: No - INTEGUMENTARY Hx Dermatological Problems: No - MUSCULOSKELETAL/RHEUMATOLOGICAL Hx Falls: No - GASTROINTESTINAL Hx Gastrointestinal Disorders: No - GENITOURINARY/GYNECOLOGICAL Hx Genitourinary Disorders: Yes Hx Prostate Problems: Yes (bph) - PSYCHIATRIC Hx Substance Use: No - SURGICAL HISTORY Hx Surgeries: Yes Other/Comment: cystoscopy - ANESTHESIA Hx Anesthesia: Yes Hx Anesthesia Reactions: No Hx Malignant Hyperthermia: No Has any member of the family had a problem w/ anesthesia?: No Meds Allergies/Adverse Reactions: Allergies Allergy/AdvReac Type Severity Reaction Status Date / Time No Known Allergies Allergy Verified 12/12/15 11:59 - Medications Medications: Current Medications Acetaminophen (Tylenol 650 Mg Supp) 650 mg AK Q6 PRN PRN Reason: fever+pain Aspirin (Aspirin Supp) 300 mg AK DAILY [facility] Last Admin: 03/30/18 10:44 Dose: 300 mg Heparin Sodium (Porcine) (Heparin) 5,000 units SC Q8 [facility] Last Admin: 03/31/18 05:34 Dose: 5,000 units Cefepime HCl (Maxipime Iv 2 Gm Premix) 2 gm in 100 mls @ 100 mls/hr IVPB Q12H [facility]; Protocol Stop: 03/31/18 18:01 Last Admin: 03/31/18 05:34 Dose: 100 mls/hr Vancomycin/Sodium Chloride (Vancomycin 1 Gm/Ns 200 Ml) 1 gm in 200 mls @ 133.333 mls/hr IVPB Q24H [facility]; Protocol Stop: 03/31/18 22:01 Last Admin: 03/30/18 22:35 Dose: 133.333 mls/hr Sodium Chloride (Sodium Chloride 0.45%) 1,000 mls @ 75 mls/hr IV .[id number] [facility] Last Admin: 03/31/18 03:40 Dose: Not Given Insulin Aspart (Novolog) 0 unit SC Q6 [facility]; Protocol Last Admin: 03/31/18 06:44 Dose: 8 units Insulin Glargine (Lantus) 10 unit SC [facility] Last Admin: 03/30/18 22:37 Dose: 10 units Lorazepam (Ativan) 1 mg IVP Q4H PRN PRN Reason: Restlessness Last Admin: 03/29/18 23:11 Dose: 1 mg Losartan Potassium (Cozaar) 25 mg PEG DAILY [facility] Last Admin: 03/30/18 10:21 Dose: 25 mg Methylprednisolone (Solu-Medrol) 40 mg IVP DAILY [facility] Last Admin: 03/30/18 10:21 Dose: 40 mg Metoprolol Tartrate (Lopressor) 5 mg IVP Q6 PRN PRN Reason: elevated blood pressure Last Admin: 03/31/18 06:09 Dose: 5 mg Metoprolol Tartrate (Lopressor) 25 mg PEG BID [facility] Last Admin: 03/30/18 18:33 Dose: 25 mg Pantoprazole Sodium (Protonix Susp) 40 mg PO DAILY [facility] Rosuvastatin Calcium (Crestor) 10 mg PO [facility] Last Admin: 03/30/18 22:36 Dose: 10 mg Vitamin A (Vitamin A & D Oint Ud Foilpak) 1 ea TOP Q6 PRN PRN Reason: Dry mouth Last Admin: 03/30/18 22:45 Dose: 1 ea Vitamin A (Vitamin A & D Oint Ud Foilpak) 1 ea TOP Q8 PRN PRN Reason: Dry mouth Last Admin: 03/30/18 15:20 Dose: 1 ea Physical Exam - Constitutional Appears: In Acute Distress, Chronically Ill - Head Exam Head Exam: ATRAUMATIC, NORMAL INSPECTION, NORMOCEPHALIC - Eye Exam Eye Exam: EOMI, Normal appearance, PERRL Pupil Exam: NORMAL ACCOMODATION, PERRL - ENT Exam ENT Exam: Mucous Membranes Dry - Neck Exam Neck exam: Positive for: Normal Inspection - Respiratory Exam Respiratory Exam: Decreased Breath Sounds, NORMAL BREATHING PATTERN - Cardiovascular Exam Cardiovascular Exam: Tachycardia, Irregular Rhythm - GI/Abdominal Exam Additional comments: PEG - Rectal Exam Rectal Exam: Deferred - Exam Exam: NORMAL INSPECTION - Extremities Exam Extremities exam: Positive for: normal inspection - Back Exam Back exam: NORMAL INSPECTION - Neurological Exam Neurological exam: Alert, Altered - Psychiatric Exam Psychiatric exam: Agitated - Skin Skin Exam: Dry, Intact, Normal Color, Warm Results - Vital Signs Recent Vital Signs: Last Vital Signs Temp 98.7 F 03/31/18 06:12 Pulse 92 H 03/31/18 06:12 Resp 20 03/31/18 06:12 BP 152/105 H 03/31/18 06:12 Pulse Ox 97 03/31/18 06:12 - Labs Result Diagrams: 03/31/18 07:38 03/31/18 07:38 Labs: Laboratory Results - last 24 hr 03/30/18 03/30/18 03/30/18 09:30 09:30 11:14 WBC 23.4 H RBC 4.47 Hgb 13.1 Hct 40.6 MCV 90.8 MCH 29.2 MCHC 32.2 L RDW 14.3 Plt Count 156 MPV 11.3 Neut % (Auto) 87.3 H Lymph % (Auto) 7.6 L [place] % (Auto) 4.6 Eos % (Auto) 0.4 Baso % (Auto) 0.1 Neut # (Auto) 20.4 H Lymph # (Auto) 1.8 [place] # (Auto) 1.1 H Eos # (Auto) 0.1 Baso # (Auto) 0.0 Neutrophils % (Manual) 87 H Lymphocytes % (Manual) 9 L Monocytes % (Manual) 4 Platelet Estimate Normal Sodium 153 H Potassium 3.8 Chloride 123 H Carbon Dioxide 24 Anion Gap 9 L BUN 47 H Creatinine 1.4 Est GFR ( Amer) > 60 Est GFR (Non-Af Amer) 51 POC Glucose (mg/dL) 209 H Random Glucose 182 H D Calcium 9.1 Phosphorus 2.0 L Magnesium 2.3 Total Bilirubin 0.6 AST 23 ALT 35 Alkaline Phosphatase 107 Total Protein 6.3 Albumin 3.2 L Globulin 3.1 Albumin/Globulin Ratio 1.0 03/30/18 03/30/18 03/31/18 16:21 23:38 01:59 WBC RBC Hgb Hct MCV MCH MCHC RDW Plt Count MPV Neut % (Auto) Lymph % (Auto) [place] % (Auto) Eos % (Auto) Baso % (Auto) Neut # (Auto) Lymph # (Auto) [place] # (Auto) Eos # (Auto) Baso # (Auto) Neutrophils % (Manual) Lymphocytes % (Manual) Monocytes % (Manual) Platelet Estimate Sodium Potassium Chloride Carbon Dioxide Anion Gap BUN Creatinine Est GFR ( Amer) Est GFR (Non-Af Amer) POC Glucose (mg/dL) 335 H 347 H 368 H Random Glucose Calcium Phosphorus Magnesium Total Bilirubin AST ALT Alkaline Phosphatase Total Protein Albumin Globulin Albumin/Globulin Ratio 03/31/18 03/31/18 03/31/18 06:25 07:38 07:38 WBC 22.9 H RBC 4.31 L Hgb 12.5 Hct 39.0 MCV 90.5 MCH 28.9 MCHC 32.0 L RDW 14.1 Plt Count 131 MPV 11.1 Neut % (Auto) 90.6 H Lymph % (Auto) 5.4 L [place] % (Auto) 3.4 Eos % (Auto) 0.3 Baso % (Auto) 0.3 Neut # (Auto) 20.7 H Lymph # (Auto) 1.2 [place] # (Auto) 0.8 Eos # (Auto) 0.1 Baso # (Auto) 0.1 Neutrophils % (Manual) Lymphocytes % (Manual) Monocytes % (Manual) Platelet Estimate Sodium 149 H Potassium 4.2 Chloride 122 H Carbon Dioxide 24 Anion Gap 7 L BUN 56 H Creatinine 1.4 Est GFR ( Amer) > 60 Est GFR (Non-Af Amer) 51 POC Glucose (mg/dL) 388 H Random Glucose 371 H D Calcium 8.6 Phosphorus 3.0 Magnesium 2.2 Total Bilirubin 0.7 AST 21 ALT 28 Alkaline Phosphatase 103 Total Protein 5.8 L Albumin 2.9 L Globulin 2.8 Albumin/Globulin Ratio 1.0 Assessment & Plan - Assessment and Plan (Free Text) Assessment: Late entry, patient examined 03/30/2018 Palliative consult Full code, there is no Advance Directive on chart, PPS 10% I reviewed all medical records, diagnostic studies, examined patient in the bed and discussed his condition with the daughter at bed side Patient is lethargic, agitated, uncontrollably moving upper and lower extremities. His daughter at bed side tries to calm him down by speaking Adventism to him. patient calmed down only after given Ativan. Patient looks much older than stated age. Skin is dry, intact, poor skin turgor. Breath sounds diminished, no cough. PEG in place, functioning. Patient is incontinent of bowel and bladder. The EEG wassignificant for severe encephalopathy and coma state with possible seizures activity. WBC 16.7, Hb 12.1 BP 144/92, HR 107, O2Sat 95 % Maxipime, Vanco IV and Solumedrol on board among other meds. Patient's daughter, who arrived from [place] for a visit, at bed side. She states working in Health field back there and understands her father's condition. I reviewed patient's current condition and all Medical interventions applied. The daughter agreed that her father's condition was very critical and " wished he had when he Coded". Daughter is concerned about her father's quality of life . She understood that in this condition her father will need a lot of assistance. I offered more information about NH placement as patient had medicaid pending, what should allow his admission there. She agreed with the plan. Code status discussed. POLST introduced. The daughter said if it was only up to her, she would want her father to be DNR/DNI but she needs to talk to her mother and other siblings. I supported her. We agreed to meet on Thursday03/31/2018 at 11 am to further discuss goals of care. Impression * Acutely ill man with severe AMS * Agitation * EEG suggesting encephalopathy and coma * PEG in situ * At risk for aspiration * Significantly limited quality of life * prognosis poor * The daughter voices desire for natural but needs to discuss it with the rest of the family Suggestion * Promote safety * Aspiration precautions * Comfort care would be beneficial * Patient should be DNR/DNI * Hospice care at facility would be appropriate Further goals of care will be discussed today at 11 am family meeting Advance care planing 50 min.
[2018-03-31 09:38] LABS: LYMPHOCYTE 8 % (20-40); MONOCYTE 2 % (0-10); MYELOCYTE 1 % (0-0); NEUTROPHIL 89 % (50-75); PLATELET ESTIMATE NORMAL (NORMAL); TOTAL CELLS COUNTED 100
[2018-03-31] MEDS: MethylPREDNISolone 40 mg Vial IVP SCH ×2 (10:18→18:33)
[2018-03-31] MEDS: Pantoprazole 40 mg Susp UD PO SCH (10:19)
[2018-03-31] MEDS ORDERED: (Lantus) Insulin Glargine, Recombinant SC SCH (10:20)
--- NOTE | 2018-03-31 12:26 | CP.PCM.PN ---
Subjective - Date & Time of Evaluation Date of Evaluation: 03/31/18 Time of Evaluation: 11:00 - Subjective Subjective: Patient examined in bed, still unresponive to tactile/verbal stimuli, eyes closed, very agitated. Daughter and at bed side for Family meeting. Objective - Vital Signs/Intake and Output Vital Signs (last 24 hours): Temp Pulse Resp BP Pulse Ox 98 F 89 20 155/95 H 93 L 03/31/18 08:00 03/31/18 08:00 03/31/18 08:00 03/31/18 10:19 03/31/18 08:00 Intake and Output: 03/31/18 03/31/18 06:59 18:59 Intake Total 210 Balance 210 - Medications Medications: Current Medications Acetaminophen (Tylenol 650 Mg Supp) 650 mg NV Q6 PRN PRN Reason: fever+pain Aspirin (Aspirin Supp) 300 mg NV DAILY [facility] Last Admin: 03/31/18 10:19 Dose: 300 mg Heparin Sodium (Porcine) (Heparin) 5,000 units SC Q8 [facility] Last Admin: 03/31/18 05:34 Dose: 5,000 units Cefepime HCl (Maxipime Iv 2 Gm Premix) 2 gm in 100 mls @ 100 mls/hr IVPB Q12H [facility]; Protocol Stop: 03/31/18 18:01 Last Admin: 03/31/18 05:34 Dose: 100 mls/hr Vancomycin/Sodium Chloride (Vancomycin 1 Gm/Ns 200 Ml) 1 gm in 200 mls @ 133.333 mls/hr IVPB Q24H [facility]; Protocol Stop: 03/31/18 22:01 Last Admin: 03/30/18 22:35 Dose: 133.333 mls/hr Sodium Chloride (Sodium Chloride 0.45%) 1,000 mls @ 75 mls/hr IV .[id number] [facility] Last Admin: 03/31/18 03:40 Dose: Not Given Insulin Aspart (Novolog) 0 unit SC Q6 [facility]; Protocol Last Admin: 03/31/18 12:13 Dose: 4 units Insulin Glargine (Lantus) 14 unit SC HS [facility] Lorazepam (Ativan) 1 mg IVP Q4H PRN PRN Reason: Restlessness Last Admin: 03/29/18 23:11 Dose: 1 mg Losartan Potassium (Cozaar) 25 mg PEG DAILY [facility] Last Admin: 03/31/18 10:19 Dose: 25 mg Methylprednisolone (Solu-Medrol) 40 mg IVP BID [facility] Metoprolol Tartrate (Lopressor) 5 mg IVP Q6 PRN PRN Reason: elevated blood pressure Last Admin: 03/31/18 06:09 Dose: 5 mg Metoprolol Tartrate (Lopressor) 25 mg PEG BID [facility] Last Admin: 03/31/18 10:19 Dose: 25 mg Pantoprazole Sodium (Protonix Susp) 40 mg PO DAILY [facility] Last Admin: 03/31/18 10:19 Dose: 40 mg Rosuvastatin Calcium (Crestor) 10 mg PO [facility] Last Admin: 03/30/18 22:36 Dose: 10 mg Vitamin A (Vitamin A & D Oint Ud Foilpak) 1 ea TOP Q6 PRN PRN Reason: Dry mouth Last Admin: 03/30/18 22:45 Dose: 1 ea Vitamin A (Vitamin A & D Oint Ud Foilpak) 1 ea TOP Q8 PRN PRN Reason: Dry mouth Last Admin: 03/30/18 15:20 Dose: 1 ea - Labs Labs: 03/31/18 07:38 03/31/18 07:38 PT 12.9 SECONDS (9.7-12.2) H 03/21/18 04:41 INR 1.2 03/21/18 04:41 APTT 51 SECONDS (21-34) H 03/24/18 06:35 - Constitutional Appears: In Acute Distress, Chronically Ill - Head Exam Head Exam: ATRAUMATIC, NORMAL INSPECTION, NORMOCEPHALIC - Eye Exam Eye Exam: Normal appearance - ENT Exam ENT Exam: Mucous Membranes Dry - Neck Exam Neck Exam: Normal Inspection - Respiratory Exam Respiratory Exam: Decreased Breath Sounds, NORMAL BREATHING PATTERN - Cardiovascular Exam Cardiovascular Exam: Tachycardia - GI/Abdominal Exam Additional comments: PEG - Exam Additional comments: Melvin cath - Extremities Exam Extremities Exam: Normal Capillary Refill - Back Exam Back Exam: NORMAL INSPECTION - Neurological Exam Neurological Exam: Altered, Motor Sensory Deficit Neuro motor strength exam: Left Upper Extremity: 2/1, Right Upper Extremity: 2/1, Left Lower Extremity: 2/1, Right Lower Extremity: 2/1 - Psychiatric Exam Psychiatric exam: Agitated - Skin Skin Exam: Dry, Intact, Normal Color Assessment and Plan - Assessment and Plan (Free Text) Assessment: Progress note Patient still agitated, unresponsive to stimuli and nonverbal. EEG was significant for severe encephalopathy and coma with seizures activities. WBC chriss to 22.9. maxipime and Vanco IV on board. BS 280, Novolog sliding scale on board. I reviewed patient's clinical presentation and briefly reviewed the goals of care discussion we had last night. The daughter said she was aware of EEG results and spoke to Doctor Eunice about it. The daughter said that the family had decided to continue current treatment until patient's condition get stable enough to be able to travel to [place]. The family wishes patient spends the rest of his life in [place]. Family was undecided on Code status and wanted him to remain Full Code for now. Impression * Encephalopathy and comatous state * Agitation * Hyperglycemia * Family is considering returning patient back to [place] when stable to travel * Family undecided on Code status * Suggestion * promote safety * Control BS level * Discharge planing to home when stable * Full Code Palliative care will sign off at this time. Advance care planing 30 min
--- NOTE | 2018-03-31 15:12 | CP.PCM.PN ---
Subjective - Date & Time of Evaluation Date of Evaluation: 03/31/18 Time of Evaluation: 15:12 - Subjective Subjective: Neuro Follow-Up Note: Mr. Mejia was evaluated this afternoon at bedside. Daughter is at bedside. Palliative care meeting was held today with family to discuss goals of care. Per daughter pt has been more alert than today. ROS unobtainable 2/2 pt's condition but per daughter he appears comfortable. Objective - Vital Signs/Intake and Output Vital Signs (last 24 hours): Temp Pulse Resp BP Pulse Ox 98 F 87 20 155/95 H 93 L 03/31/18 08:00 03/31/18 08:00 03/31/18 08:00 03/31/18 10:19 03/31/18 08:00 Intake and Output: 03/31/18 03/31/18 06:59 18:59 Intake Total 210 600 Output Total 425 Balance 210 175 - Medications Medications: Current Medications Acetaminophen (Tylenol 650 Mg Supp) 650 mg NV Q6 PRN PRN Reason: fever+pain Aspirin (Aspirin Supp) 300 mg NV DAILY [facility] Last Admin: 03/31/18 10:19 Dose: 300 mg Heparin Sodium (Porcine) (Heparin) 5,000 units SC Q8 [facility] Last Admin: 03/31/18 14:04 Dose: 5,000 units Cefepime HCl (Maxipime Iv 2 Gm Premix) 2 gm in 100 mls @ 100 mls/hr IVPB Q12H [facility]; Protocol Stop: 03/31/18 18:01 Last Admin: 03/31/18 05:34 Dose: 100 mls/hr Vancomycin/Sodium Chloride (Vancomycin 1 Gm/Ns 200 Ml) 1 gm in 200 mls @ 13 3.333 mls/hr IVPB Q24H [facility]; Protocol Stop: 03/31/18 22:01 Last Admin: 03/30/18 22:35 Dose: 133.333 mls/hr Sodium Chloride (Sodium Chloride 0.45%) 1,000 mls @ 75 mls/hr IV .[id number] [facility] Last Admin: 03/31/18 03:40 Dose: Not Given Insulin Aspart (Novolog) 0 unit SC Q6 [facility]; Protocol Last Admin: 03/31/18 12:13 Dose: 4 units Insulin Glargine (Lantus) 14 unit SC HS [facility] Lorazepam (Ativan) 1 mg IVP Q4H PRN PRN Reason: Restlessness Last Admin: 03/29/18 23:11 Dose: 1 mg Losartan Potassium (Cozaar) 25 mg PEG DAILY [facility] Last Admin: 03/31/18 10:19 Dose: 25 mg Methylprednisolone (Solu-Medrol) 40 mg IVP BID [facility] Metoprolol Tartrate (Lopressor) 5 mg IVP Q6 PRN PRN Reason: elevated blood pressure Last Admin: 03/31/18 06:09 Dose: 5 mg Metoprolol Tartrate (Lopressor) 25 mg PEG BID [facility] Last Admin: 03/31/18 10:19 Dose: 25 mg Oseltamivir Phosphate (Tamiflu Cap) 75 mg GT BID [facility]; Protocol Stop: 04/02/18 13:11 Pantoprazole Sodium (Protonix Susp) 40 mg PO DAILY [facility] Last Admin: 03/31/18 10:19 Dose: 40 mg Rosuvastatin Calcium (Crestor) 10 mg PO HS [facility] Last Admin: 03/30/18 22:36 Dose: 10 mg Vitamin A (Vitamin A & D Oint Ud Foilpak) 1 ea TOP Q6 PRN PRN Reason: Dry mouth Last Admin: 03/30/18 22:45 Dose: 1 ea Vitamin A (Vitamin A & D Oint Ud Foilpak) 1 ea TOP Q8 PRN PRN Reason: Dry mouth Last Admin: 03/30/18 15:20 Dose: 1 ea - Labs Labs: 03/31/18 07:38 03/31/18 07:38 PT 12.9 SECONDS (9.7-12.2) H 03/21/18 04:41 INR 1.2 03/21/18 04:41 APTT 51 SECONDS (21-34) H 03/24/18 06:35 - Constitutional Appears: No Acute Distress (nonverbal) - Head Exam Head Exam: ATRAUMATIC, NORMAL INSPECTION, NORMOCEPHALIC - Eye Exam Eye Exam: EOMI, Normal appearance, PERRL Pupil Exam: NORMAL ACCOMODATION - ENT Exam ENT Exam: Mucous Membranes Moist - Neck Exam Neck Exam: Full ROM, Normal Inspection - Respiratory Exam Respiratory Exam: NORMAL BREATHING PATTERN - GI/Abdominal Exam Additional comments: peg with feeding - Extremities Exam Extremities Exam: Full ROM (moves extremities independently). absent: Calf Tenderness, Pedal Edema - Back Exam Back Exam: Full ROM - Neurological Exam Neurological Exam: Altered, Reflexes Normal Additional comments: Nonverbal Unable to follow commands; more alert than yesterday; appears comfortable Moves all extremities independently (non-purposeful movements spontaneously) Unable to test fine motor and sensation 2/2 pt's condition No tremors or clonus noted. - Psychiatric Exam Psychiatric exam: absent: Normal Affect, Normal Mood (nonverbal) - Skin Skin Exam: Normal Color Assessment and Plan (1) Cardiac arrest Assessment & Plan: Imaging reviewed: -Head CT (03/26/18): Limited study secondary to suboptimal patient positioning and technique. 1. 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 Further evaluation with CT angiogram of the head and neck is recommended for further evaluation. Additional etiologies are not excluded. In addition, correlation with MRI would also be helpful if clinically indicated. 2. Sinus mucosal disease as above. -Head CT (03/19/18): 9x11mm Right middle cerebral artery aneurysm -Head CT (03/22/18): Mild generalized volume loss. Previously noted right MCA aneurysm. -EEG (03/29/18): This is an abnormal 24 hour VEEG. The presence of diffuse spindles throughout the record as well as a poorly reactive low amplitude background indicates severe encephalopathy/coma state. The absence of epileptiform discharges during the EEG recording does not rule out the diagnosis of a seizure disorder. -Remains nonverbal. -During cardiac arrest patient was down for about a possible 28 minutes. -Current neurological status likely secondary to seizure or anoxic brain injury--see EEG report. -Continue ASA, Statin, and Heparin -Palliative care met with family today to discuss goals of care. -Notify neuro team of acute changes in condition. Case discussed with Dr. Menjivar Status: Acute
[2018-03-31] MEDS ORDERED: Oseltamivir 6 MG/ML PO SCH (18:00)
[2018-03-31] MEDS: Oseltamivir 6 MG/ML GT SCH (19:29)
[2018-03-31] MEDS: Vancomycin 1 gm/NS 200 ml 1 GM/200 ML BAG IVPB SCH (21:54)
[2018-04-01] MEDS: (Novolog) Insulin Aspart, Recombinant 100 u/ml 10 ml vial SC SCH ×4 (00:49→18:27)
[2018-04-01 07:25] LABS: BASO % 0.2 % (0.0-2.0); HEMOGLOBIN 11.9 g/dL (12.0-18.0); LYMPH # 0.6 K/uL (1.0-4.3); LYMPH % 2.9 % (20.0-40.0); MEAN CELL VOLUME 90.6 fL (80.0-94.0); MEAN CORPUSCULAR HEMOGLOBIN 28.7 pg (27.0-31.0); MEAN CORPUSCULAR HGB CONC 31.7 g/dL (33.0-37.0); MEAN PLATELET VOLUME 11.5 fL (7.2-11.7); MONO # 0.6 K/uL (0.0-0.8); MONO % 2.9 % (0.0-10.0); NEUT # 20.3 K/uL (1.8-7.0); PLATELET COUNT 120 K/uL (130-400); RBC 4.15 Mil/uL (4.40-5.90); RED CELL DISTRIBUTION WIDTH 13.9 % (11.5-14.5); WHITE BLOOD COUNT 21.6 K/uL (4.8-10.8)
[2018-04-01 07:42] LABS: ALBUMIN 2.8 g/dL (3.5-5.0); ALT/SGPT 27 U/L (21-72); AST/SGOT 21 U/L (17-59); BLOOD UREA NITROGEN 53 mg/dL (9-20); CALCIUM 8.4 mg/dl (8.6-10.4); GFR NON-AFRICAN AMERICAN > 60
[2018-04-01 08:39] LABS: BANDS 1 % (0-2); LYMPHOCYTE 2 % (20-40); MONOCYTE 2 % (0-10); NEUTROPHIL 95 % (50-75); TOTAL CELLS COUNTED 100
[2018-04-01 08:40] LABS: ANISOCYTOSIS SLIGHT; HYPOCHROMIC SLIGHT; PLATELET ESTIMATE SLIGHTLY DECREASED (NORMAL); POIKILOCYTOSIS SLIGHT
--- NOTE | 2018-04-01 09:21 | CP.PCM.PN ---
<Samantha Joe - Last Filed: 04/01/18 14:51> Subjective - Date & Time of Evaluation Date of Evaluation: 04/01/18 Time of Evaluation: 09:21 - Subjective Subjective: Medicine Progress Note for Dr. Dawson Patient seen and examined at bedside by daughter this morning. Patient was sitting up and smiling at his daughter. Patient able to close eyes and squeeze hands on command. Per daughter patient is more awake and she does not want ativan since he does not get agitated. Objective - Vital Signs/Intake and Output Vital Signs (last 24 hours): Temp Pulse Resp BP Pulse Ox 97.3 F L 74 20 144/88 96 04/01/18 08:00 04/01/18 08:00 04/01/18 08:00 04/01/18 08:00 04/01/18 08:00 Intake and Output: 04/01/18 04/01/18 06:59 18:59 Intake Total 800 1040 Output Total 1050 400 Balance -250 640 - Medications Medications: Current Medications Acetaminophen (Tylenol 650 Mg Supp) 650 mg ID Q6 PRN PRN Reason: fever+pain Aspirin (Aspirin Supp) 300 mg ID DAILY [facility] Last Admin: 03/31/18 10:19 Dose: 300 mg Heparin Sodium (Porcine) (Heparin) 5,000 units SC Q8 [facility] Last Admin: 04/01/18 06:26 Dose: 5,000 units Sodium Chloride (Sodium Chloride 0.45%) 1,000 mls @ 75 mls/hr IV .[id number] [facility] Last Admin: 03/31/18 18:00 Dose: Not Given Cefepime HCl 2 gm/ Dextrose 50 mls @ 100 mls/hr IVPB Q12H [facility]; Protocol Last Admin: 04/01/18 08:09 Dose: 100 mls/hr Insulin Aspart (Novolog) 0 unit SC Q6 [facility]; Protocol Last Admin: 04/01/18 08:07 Dose: 6 units Insulin Glargine (Lantus) 14 unit SC HS [facility] Last Admin: 03/31/18 21:53 Dose: 14 unit Lorazepam (Ativan) 1 mg IVP Q4H PRN PRN Reason: Restlessness Last Admin: 03/29/18 23:11 Dose: 1 mg Losartan Potassium (Cozaar) 25 mg PEG DAILY [facility] Last Admin: 03/31/18 10:19 Dose: 25 mg Methylprednisolone (Solu-Medrol) 40 mg IVP BID [facility] Last Admin: 03/31/18 18:33 Dose: 40 mg Metoprolol Tartrate (Lopressor) 5 mg IVP Q6 PRN PRN Reason: elevated blood pressure Last Admin: 03/31/18 06:09 Dose: 5 mg Metoprolol Tartrate (Lopressor) 25 mg PEG BID [facility] Last Admin: 03/31/18 18:32 Dose: 25 mg Oseltamivir Phosphate (Tamiflu Susp) 30 mg GT BID [facility]; Protocol Stop: 04/05/18 18:31 Last Admin: 03/31/18 19:29 Dose: 30 mg Pantoprazole Sodium (Protonix Susp) 40 mg PO DAILY [facility] Last Admin: 03/31/18 10:19 Dose: 40 mg Rosuvastatin Calcium (Crestor) 10 mg PO HS [facility] Last Admin: 03/31/18 21:51 Dose: 10 mg Vitamin A (Vitamin A & D Oint Ud Foilpak) 1 ea TOP Q6 PRN PRN Reason: Dry mouth Last Admin: 03/30/18 22:45 Dose: 1 ea Vitamin A (Vitamin A & D Oint Ud Foilpak) 1 ea TOP Q8 PRN PRN Reason: Dry mouth Last Admin: 03/30/18 15:20 Dose: 1 ea - Labs Labs: 04/01/18 07:12 04/01/18 07:12 PT 12.9 SECONDS (9.7-12.2) H 03/21/18 04:41 INR 1.2 03/21/18 04:41 APTT 51 SECONDS (21-34) H 03/24/18 06:35 - Constitutional Appears: Well, Non-toxic - Head Exam Head Exam: ATRAUMATIC, NORMAL INSPECTION, NORMOCEPHALIC - Eye Exam Eye Exam: EOMI, Normal appearance - Neck Exam Neck Exam: Normal Inspection - Respiratory Exam Respiratory Exam: Clear to Ausculation Bilateral, NORMAL BREATHING PATTERN - Cardiovascular Exam Cardiovascular Exam: REGULAR RHYTHM - GI/Abdominal Exam GI & Abdominal Exam: Soft, Normal Bowel Sounds. absent: Rigid, Tenderness - Extremities Exam Extremities Exam: Normal Capillary Refill, Normal Inspection. absent: Calf Tenderness, Tenderness - Neurological Exam Neurological Exam: Alert, Awake Additional comments: Patient able to do simple commands in Eduardo such as squeeze hands and close eyes. Due to patient condition, mental status unable to be assessed. - Skin Skin Exam: Dry, Intact, Normal Color, Warm Assessment and Plan - Assessment and Plan (Free Text) Assessment: 67 y/o male with PMHx of pulm fibrosis, COPD, HTN and DM presented to the ED w/ worsening SOB x 2 months at 03/19. Patient coded in the ED and was in the ICU. Extubated on 03/24 after cardiac cath at [facility] the same day. Now stable on med surg. AMS - brain encephalopathy vs seizures vs anoxic brain injury - palliative care consult ordered for discuss goals of care, family meeting 11am on 03/31. Family discussed pt's desire of returning to [facility] consistent with his wishes. Pending further recs. - Head CT (03/19/18): 9x11mm Right middle cerebral artery aneurysm - Head CT (03/22/18): Mild generalized volume loss. Previously noted right MCA a neurysm. - EEG ordered to r/o seizure activity 24h EEG 03/29-03/[address] Menjivar. Results: severe encepholopathy/coma state. No epileptiform discharges but it does not rule out seizure disorder. - Ativan 1mg IVP Q4H PRN for agitation. Family prefers to avoid ativan until they say he is agitated. Family denies recent agitation. - s/p PEG placement 03/26/18 - Neurology consulted, Dr. Menjivar/Pierre; help appreciated Cardiac arrest/Respiratory failure - On admission 03/19, Initial rhythm asytole, Epi x 3 given, went into VF/VT requiring shock and Amiodarone 300mg. Elevated troponin,EKG LBBB(old). Echo reviewed with seconds handler in the ICU: preserved LV function, anteroseptal hypokinesis. Cardiac cath at [facility] on 03/24/18: non obstructive CAD -continue with HTN meds and COPD exacerbation meds: -- Lopressor 25mg po bid -- Lopressor IVP q6 prn -- Crestor 10mg po hs -- Duoneb q6 -- Solumedrol 40 mg IV q12, changed from daily - Kindergarten Paraprofessional consulted, Dr Cotton, help appreciated - Spanish Interpreter/Translator consulted, Dr. Salazar, help appreciated Severe pulmonary fibrosis - CT chest: centrilobular emphysema and upper lobe pulmonary fibrosis - Duoneb q6 - Solumedrol IV q12 - Due to leukocytosis, ID started Vanco 1gm IV 124h and Cefepime 2gm IV Q12h on 03/26/18 - tylenol PRN for temp > 100.4 - temp increased to 100.8 03/30 - and WBC 16.7 to 23.4 -> f/u STAT blood cx, CXR, urine cx - Spanish Interpreter/Translator consulted, Dr Salazar, rec appreciated Influenza - Influenza A + - Legionella, strep pneumo, mycoplasma negative - continue tamiflu started 03/31 and stop 04/05; since the first tamiflu course dropped after 3 days - contact and droplet precautions, remove once tamiflu course is finished - fever noted in 03/30 progress note, resolved. No growth after 24h blood cx, also pending urine cx Acute renal failure - Isolated elevated BUN. - Nephrology consulted, Dr. Jacques; recs appreciated - IVF PRN DM - Accuchecks - ISS, medium - night time lantus increased from 14 to 16 units as BG has been in the 300s - Hypoglycemic protocol HTN - Lopressor 25mg po bid - Lopressor IVP q6 prn - Continue to monitor Supportive care - DVT: heparin 5000u sc Q8, SCDs - GI: protonix 40mg iv daily - PT/OT: continue - ST: evaluation order placed 04/01 case d/w Dr. Eunice Joe PGY1 <Lynette Dawson - Last Filed: 04/02/18 15:16> Objective - Vital Signs/Intake and Output Vital Signs (last 24 hours): Temp Pulse Resp BP Pulse Ox 97.8 F 63 20 152/94 H 99 04/02/18 07:00 04/02/18 12:00 04/02/18 07:00 04/02/18 10:26 04/02/18 07:00 Intake and Output: 04/02/18 04/02/18 06:59 18:59 Intake Total 600 600 Output Total 1000 500 Balance -400 100 - Medications Medications: Current Medications Acetaminophen (Tylenol 650 Mg Supp) 650 mg ID Q6 PRN PRN Reason: fever+pain Aspirin (Aspirin Supp) 300 mg ID DAILY [facility] Last Admin: 04/02/18 10:27 Dose: 300 mg Heparin Sodium (Porcine) (Heparin) 5,000 units SC Q8 [facility] Last Admin: 04/02/18 13:11 Dose: 5,000 units Sodium Chloride (Sodium Chloride 0.45%) 1,000 mls @ 75 mls/hr IV .[id number] [facility] Last Admin: 04/02/18 06:37 Dose: 75 mls/hr Cefepime HCl 2 gm/ Dextrose 50 mls @ 100 mls/hr IVPB Q12H [facility]; Protocol Last Admin: 04/02/18 06:33 Dose: 100 mls/hr Insulin Aspart (Novolog) 0 unit SC Q6 [facility]; Protocol Last Admin: 04/02/18 12:50 Dose: 3 units Insulin Glargine (Lantus) 16 unit SC [facility] Last Admin: 04/01/18 22:23 Dose: 16 unit Lorazepam (Ativan) 1 mg IVP Q4H PRN PRN Reason: Restlessness Last Admin: 03/29/18 23:11 Dose: 1 mg Losartan Potassium (Cozaar) 25 mg PEG DAILY [facility] Last Admin: 04/02/18 10:26 Dose: 25 mg Methylprednisolone (Solu-Medrol) 40 mg IVP BID [facility] Last Admin: 04/02/18 10:26 Dose: 40 mg Metoprolol Tartrate (Lopressor) 5 mg IVP Q6 PRN PRN Reason: elevated blood pressure Last Admin: 03/31/18 06:09 Dose: 5 mg Metoprolol Tartrate (Lopressor) 25 mg PEG BID [facility] Last Admin: 04/02/18 10:26 Dose: 25 mg Oseltamivir Phosphate (Tamiflu Susp) 30 mg GT BID [facility]; Protocol Stop: 04/05/18 18:31 Last Admin: 04/02/18 10:26 Dose: 30 mg Pantoprazole Sodium (Protonix Susp) 40 mg PO DAILY [facility] Last Admin: 04/02/18 10:26 Dose: 40 mg Rosuvastatin Calcium (Crestor) 10 mg PO [facility] Last Admin: 04/01/18 22:23 Dose: 10 mg Vitamin A (Vitamin A & D Oint Ud Foilpak) 1 ea TOP Q6 PRN PRN Reason: Dry mouth Last Admin: 03/30/18 22:45 Dose: 1 ea Vitamin A (Vitamin A & D Oint Ud Foilpak) 1 ea TOP Q8 PRN PRN Reason: Dry mouth Last Admin: 04/02/18 10:26 Dose: 1 ea - Labs Labs: 04/02/18 07:54 04/02/18 07:54 PT 12.9 SECONDS (9.7-12.2) H 03/21/18 04:41 INR 1.2 03/21/18 04:41 APTT 51 SECONDS (21-34) H 03/24/18 06:35 Attending/Attestation - Attestation I have personally seen and examined this patient.: Yes I have fully participated in the care of the patient.: Yes I have reviewed all pertinent clinical information, including history, physical exam and plan: Yes Notes (Text): seen and examined. awake and responsive,follow simple commands.As per daughter at bedside he was more alert this morning and spoke to his son on the phone. Wants to drink water no fever,mild sob continue antibiotics this week end as per Dr floyd. continue Peg feeding,solumedrol,monitor sugar
[2018-04-01] MEDS: Oseltamivir 6 MG/ML GT SCH ×2 (10:47→19:24)
[2018-04-01] MEDS: MethylPREDNISolone 40 mg Vial IVP SCH ×2 (10:47→18:27)
[2018-04-01] MEDS: Pantoprazole 40 mg Susp UD PO SCH (10:48)
--- NOTE | 2018-04-01 13:55 | CP.PCM.PN ---
<Kristina Lehman - Last Filed: 04/01/18 14:27> Subjective - Date & Time of Evaluation Date of Evaluation: 04/01/18 Time of Evaluation: 13:55 - Subjective Subjective: Neuro Follow-Up Note: Mr. Mejia was evaluated this afternoon at bedside. Daughter and are at bedside. Per daughter pt has been more alert today and was speaking this morning. Pt able to ask for things such as a glass of water. Pt c/o sore throat since this morning. Chart reviewed; discussed with primary RN. Also discussed with primary team. Pt at this time denies h/a, dizziness, visual changes, chest pain, abd pain, n/v/d. Objective - Vital Signs/Intake and Output Vital Signs (last 24 hours): Temp Pulse Resp BP Pulse Ox 97.3 F L 74 20 144/88 96 04/01/18 08:00 04/01/18 08:00 04/01/18 08:00 04/01/18 10:47 04/01/18 08:00 Intake and Output: 04/01/18 04/01/18 06:59 18:59 Intake Total 800 1040 Output Total 1050 400 Balance -250 640 - Medications Medications: Current Medications Acetaminophen (Tylenol 650 Mg Supp) 650 mg TN Q6 PRN PRN Reason: fever+pain Aspirin (Aspirin Supp) 300 mg TN DAILY [facility] Last Admin: 04/01/18 10:47 Dose: 300 mg Heparin Sodium (Porcine) (Heparin) 5,000 units SC Q8 [facility] Last Admin: 04/01/18 06:26 Dose: 5,000 units Sodium Chloride (Sodium Chloride 0.45%) 1,000 mls @ 75 mls/hr IV .[id number] [facility] Last Admin: 03/31/18 18:00 Dose: Not Given Cefepime HCl 2 gm/ Dextrose 50 mls @ 100 mls/hr IVPB Q12H [facility]; Protocol Last Admin: 04/01/18 08:09 Dose: 100 mls/hr Insulin Aspart (Novolog) 0 unit SC Q6 [facility]; Protocol Last Admin: 04/01/18 12:56 Dose: 6 units Insulin Glargine (Lantus) 14 unit SC HS [facility] Last Admin: 03/31/18 21:53 Dose: 14 unit Lorazepam (Ativan) 1 mg IVP Q4H PRN PRN Reason: Restlessness Last Admin: 03/29/18 23:11 Dose: 1 mg Losartan Potassium (Cozaar) 25 mg PEG DAILY [facility] Last Admin: 04/01/18 10:47 Dose: 25 mg Methylprednisolone (Solu-Medrol) 40 mg IVP BID [facility] Last Admin: 04/01/18 10:47 Dose: 40 mg Metoprolol Tartrate (Lopressor) 5 mg IVP Q6 PRN PRN Reason: elevated blood pressure Last Admin: 03/31/18 06:09 Dose: 5 mg Metoprolol Tartrate (Lopressor) 25 mg PEG BID [facility] Last Admin: 04/01/18 10:47 Dose: 25 mg Oseltamivir Phosphate (Tamiflu Susp) 30 mg GT BID [facility]; Protocol Stop: 04/05/18 18:31 Last Admin: 04/01/18 10:47 Dose: 30 mg Pantoprazole Sodium (Protonix Susp) 40 mg PO DAILY [facility] Last Admin: 04/01/18 10:48 Dose: 40 mg Rosuvastatin Calcium (Crestor) 10 mg PO HS [facility] Last Admin: 03/31/18 21:51 Dose: 10 mg Vitamin A (Vitamin A & D Oint Ud Foilpak) 1 ea TOP Q6 PRN PRN Reason: Dry mouth Last Admin: 03/30/18 22:45 Dose: 1 ea Vitamin A (Vitamin A & D Oint Ud Foilpak) 1 ea TOP Q8 PRN PRN Reason: Dry mouth Last Admin: 03/30/18 15:20 Dose: 1 ea - Labs Labs: 04/01/18 07:12 04/01/18 07:12 PT 12.9 SECONDS (9.7-12.2) H 03/21/18 04:41 INR 1.2 03/21/18 04:41 APTT 51 SECONDS (21-34) H 03/24/18 06:35 - Constitutional Appears: Non-toxic, No Acute Distress - Head Exam Head Exam: ATRAUMATIC, NORMAL INSPECTION, NORMOCEPHALIC - Eye Exam Eye Exam: EOMI, Normal appearance Pupil Exam: NORMAL ACCOMODATION - ENT Exam ENT Exam: Mucous Membranes Moist - Neck Exam Neck Exam: Full ROM, Normal Inspection - Respiratory Exam Respiratory Exam: NORMAL BREATHING PATTERN - GI/Abdominal Exam GI & Abdominal Exam: Soft Additional comments: peg with feeding - Extremities Exam Extremities Exam: Full ROM. 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 - Psychiatric Exam Psychiatric exam: Normal Affect, Normal Mood - Skin Skin Exam: Normal Color Assessment and Plan (1) Cardiac arrest Assessment & Plan: Imaging reviewed: -Head CT (03/26/18): Limited study secondary to suboptimal patient positioning and technique. 1. Again identified is a 9 millimeter rounded hyperdense structure again noted at the level of the right sylvian fissure on series 4, im age 43 which may represent a right middle cerebral artery aneurysm. Further evaluation with CT angiogram of the head and neck is recommended for further evaluation. Additional etiologies are not excluded. In addition, correlation with MRI would also be helpful if clinically indicated. 2. Sinus mucosal disease as above. -Head CT (03/19/18): 9x11mm Right middle cerebral artery aneurysm -Head CT (03/22/18): Mild generalized volume loss. Previously noted right MCA aneurysm. -EEG (03/29/18): This is an abnormal 24 hour VEEG. The presence of diffuse spindles throughout the record as well as a poorly reactive low amplitude background indicates severe encephalopathy/coma state. The absence of ep ileptiform discharges during the EEG recording does not rule out the diagnosis of a seizure disorder. Mr. Mejia has shown improvement over the last couple of days but especially today. He is awake, alert, able to follow simple commands and is verbally communicating with family and staff. Per my discussion with primary team, he will have to complete his rehab here as he is uninsured and cannot qualify for rehab placement. We will continue to follow him and see how he progresses. -Continue ASA, Statin, and Heparin -Continue PT, OT, ST -Continue current management. -Notify neuro team of acute changes in condition. Case discussed with Dr. Menjivar Status: Acute <Menjivar,Gautami - Last Filed: 04/01/18 17:33> Objective - Vital Signs/Intake and Output Vital Signs (last 24 hours): Temp Pulse Resp BP Pulse Ox 97.3 F L 74 20 144/88 96 04/01/18 08:00 04/01/18 08:00 04/01/18 08:00 04/01/18 10:47 04/01/18 08:00 Intake and Output: 04/01/18 04/01/18 06:59 18:59 Intake Total 800 1040 Output Total 1050 400 Balance -250 640 - Medications Medications: Current Medications Acetaminophen (Tylenol 650 Mg Supp) 650 mg TN Q6 PRN PRN Reason: fever+pain Aspirin (Aspirin Supp) 300 mg TN DAILY [facility] Last Admin: 04/01/18 10:47 Dose: 300 mg Heparin Sodium (Porcine) (Heparin) 5,000 units SC Q8 [facility] Last Admin: 04/01/18 14:20 Dose: 5,000 units Sodium Chloride (Sodium Chloride 0.45%) 1,000 mls @ 75 mls/hr IV .[id number] [facility] Last Admin: 03/31/18 18:00 Dose: Not Given Cefepime HCl 2 gm/ Dextrose 50 mls @ 100 mls/hr IVPB Q12H [facility]; Protocol Last Admin: 04/01/18 08:09 Dose: 100 mls/hr Insulin Aspart (Novolog) 0 unit SC Q6 [facility]; Protocol Last Admin: 04/01/18 12:56 Dose: 6 units Insulin Glargine (Lantus) 16 unit SC [facility] Lorazepam (Ativan) 1 mg IVP Q4H PRN PRN Reason: Restlessness Last Admin: 03/29/18 23:11 Dose: 1 mg Losartan Potassium (Cozaar) 25 mg PEG DAILY [facility] Last Admin: 04/01/18 10:47 Dose: 25 mg Methylprednisolone (Solu-Medrol) 40 mg IVP BID [facility] Last Admin: 04/01/18 10:47 Dose: 40 mg Metoprolol Tartrate (Lopressor) 5 mg IVP Q6 PRN PRN Reason: elevated blood pressure Last Admin: 03/31/18 06:09 Dose: 5 mg Metoprolol Tartrate (Lopressor) 25 mg PEG BID [facility] Last Admin: 04/01/18 10:47 Dose: 25 mg Oseltamivir Phosphate (Tamiflu Susp) 30 mg GT BID [facility]; Protocol Stop: 04/05/18 18:31 Last Admin: 04/01/18 10:47 Dose: 30 mg Pantoprazole Sodium (Protonix Susp) 40 mg PO DAILY [facility] Last Admin: 04/01/18 10:48 Dose: 40 mg Rosuvastatin Calcium (Crestor) 10 mg PO HS [facility] Last Admin: 03/31/18 21:51 Dose: 10 mg Vitamin A (Vitamin A & D Oint Ud Foilpak) 1 ea TOP Q6 PRN PRN Reason: Dry mouth Last Admin: 03/30/18 22:45 Dose: 1 ea Vitamin A (Vitamin A & D Oint Ud Foilpak) 1 ea TOP Q8 PRN PRN Reason: Dry mouth Last Admin: 03/30/18 15:20 Dose: 1 ea - Labs Labs: 04/01/18 07:12 04/01/18 07:12 PT 12.9 SECONDS (9.7-12.2) H 03/21/18 04:41 INR 1.2 03/21/18 04:41 APTT 51 SECONDS (21-34) H 03/24/18 06:35 Assessment and Plan - Assessment and Plan (Free Text) Assessment: I agree with the assessment and plan Dr. Menjivar
[2018-04-01] MEDS: (Lantus) Insulin Glargine, Recombinant SC SCH (22:23)
[2018-04-01 22:28] LABS: BLOOD UREA NITROGEN 52 mg/dL (9-20); CALCIUM 8.1 mg/dl (8.6-10.4); GFR NON-AFRICAN AMERICAN > 60
[2018-04-02] MEDS: (Novolog) Insulin Aspart, Recombinant 100 u/ml 10 ml vial SC SCH ×4 (00:03→18:55)
[2018-04-02] MEDS: Sodium Chloride 0.45% 1,000 ML IV SCH ×2 (06:37→19:05)
--- NOTE | 2018-04-02 07:02 | CP.PCM.PN ---
<Cherelle Arambula - Last Filed: 04/02/18 19:41> Subjective - Date & Time of Evaluation Date of Evaluation: 04/02/18 Time of Evaluation: 07:01 - Subjective Subjective: PGY-1 Cherelle Arambula D.O. Medicine progress note for Dr. Dawson's service: Patient was seen and examined this morning. Daughter is at bedside. She says she thinks the patient is improving. She says he is best in the mornings then sleeps more during the rest of the day. He usually is oriented only to person and thinks that he is at home. He continues to be more responsive. He tracks and follows some commands. He speaks some single words that are understandable. He complains of intermittent chest pain. Objective - Vital Signs/Intake and Output Vital Signs (last 24 hours): Temp Pulse Resp BP Pulse Ox 97.2 F L 67 20 137/91 H 98 04/01/18 23:10 04/01/18 23:10 04/01/18 23:10 04/01/18 23:10 04/01/18 23:10 Intake and Output: 04/02/18 04/02/18 06:59 18:59 Intake Total 600 Output Total 1000 Balance -400 - Medications Medications: Current Medications Acetaminophen (Tylenol 650 Mg Supp) 650 mg IA Q6 PRN PRN Reason: fever+pain Aspirin (Aspirin Supp) 300 mg IA DAILY [facility] Last Admin: 04/01/18 10:47 Dose: 300 mg Heparin Sodium (Porcine) (Heparin) 5,000 units SC Q8 [facility] Last Admin: 04/02/18 06:35 Dose: 5,000 units Sodium Chloride (Sodium Chloride 0.45%) 1,000 mls @ 75 mls/hr IV .[id number] [facility] Last Admin: 04/02/18 06:37 Dose: 75 mls/hr Cefepime HCl 2 gm/ Dextrose 50 mls @ 100 mls/hr IVPB Q12H [facility]; Protocol Last Admin: 04/02/18 06:33 Dose: 100 mls/hr Insulin Aspart (Novolog) 0 unit SC Q6 [facility]; Protocol Last Admin: 04/02/18 06:34 Dose: 6 units Insulin Glargine (Lantus) 16 unit SC HS [facility] Last Admin: 01/17/19 22:23 Dose: 16 unit Lorazepam (Ativan) 1 mg IVP Q4H PRN PRN Reason: Restlessness Last Admin: 03/29/18 23:11 Dose: 1 mg Losartan Potassium (Cozaar) 25 mg PEG DAILY [facility] Last Admin: 04/01/18 10:47 Dose: 25 mg Methylprednisolone (Solu-Medrol) 40 mg IVP BID [facility] Last Admin: 04/01/18 18:27 Dose: 40 mg Metoprolol Tartrate (Lopressor) 5 mg IVP Q6 PRN PRN Reason: elevated blood pressure Last Admin: 03/31/18 06:09 Dose: 5 mg Metoprolol Tartrate (Lopressor) 25 mg PEG BID [facility] Last Admin: 04/01/18 18:27 Dose: 25 mg Oseltamivir Phosphate (Tamiflu Susp) 30 mg GT BID [facility]; Protocol Stop: 04/05/18 18:31 Last Admin: 04/01/18 19:24 Dose: 30 mg Pantoprazole Sodium (Protonix Susp) 40 mg PO DAILY [facility] Last Admin: 04/01/18 10:48 Dose: 40 mg Rosuvastatin Calcium (Crestor) 10 mg PO [facility] Last Admin: 04/01/18 22:23 Dose: 10 mg Vitamin A (Vitamin A & D Oint Ud Foilpak) 1 ea TOP Q6 PRN PRN Reason: Dry mouth Last Admin: 03/30/18 22:45 Dose: 1 ea Vitamin A (Vitamin A & D Oint Ud Foilpak) 1 ea TOP Q8 PRN PRN Reason: Dry mouth Last Admin: 03/30/18 15:20 Dose: 1 ea - Labs Labs: 04/01/18 07:12 04/01/18 22:00 PT 12.9 SECONDS (9.7-12.2) H 03/21/18 04:41 INR 1.2 03/21/18 04:41 APTT 51 SECONDS (21-34) H 03/24/18 06:35 - Constitutional Appears: No Acute Distress, Confused - Head Exam Head Exam: ATRAUMATIC, NORMAL INSPECTION - Eye Exam Eye Exam: EOMI, Normal appearance - ENT Exam ENT Exam: Mucous Membranes Moist - Neck Exam Neck Exam: Normal Inspection - Respiratory Exam Respiratory Exam: Clear to Ausculation Bilateral, NORMAL BREATHING PATTERN. abs ent: Accessory Muscle Use, Respiratory Distress - Cardiovascular Exam Cardiovascular Exam: REGULAR RHYTHM - GI/Abdominal Exam GI & Abdominal Exam: Soft. absent: Distended, Tenderness Additional comments: PEG - Exam Additional comments: Melvin - Extremities Exam Extremities Exam: Normal Inspection - Neurological Exam Neurological Exam: Alert, Altered, Awake. absent: Oriented x3 - Skin Skin Exam: Dry, Intact, Normal Color, Warm Assessment and Plan - Assessment and Plan (Free Text) Assessment: Patient is a 67 yo male with a history of pulmonary fibrosis, COPD, HTN, and T2DM who presented to the ED with SOB. He coded in the ED on 03/19 and was then managed in the ICU. Extubated on 03/24. Cardiac cath at [facility] on 03/24. PEG on 03/30. Patient starting to become more alert and responsive. Long-term plan is to stabilize the patient to be transported to [facility]. Plan: Altered mental status, improving- Encephalopathy vs seizures vs anoxic brain injury - Head CT (03/19/18): 9x11mm Right middle cerebral artery aneurysm - Head CT (03/22/18): Mild generalized volume loss. Previously noted right MCA aneurysm. - 24h EEG 03/29-03/30: severe encepholopathy/coma state. No epileptiform discharges but it does not rule out seizure disorder. - s/p PEG placement 03/26/18 - Ativan 1 mg IVP Q4H PRN for agitation - Cefepime 2 g Q12H- started 03/31 - Neurology consulted (Eliseo)- consider MRI brain next week - ID consulted (Barry)- antiobitoics through 04/05 then reassess - Surgery consulted (Andrew)- s/p PEG 03/26 - PT/OT/ST Cardiopulmonary arrest - On admission 03/19, Initial rhythm asytole, Epi x 3 given, went into VF/VT requiring shock and Amiodarone 300mg. Elevated troponin,EKG LBBB(old). Echo reviewed with daycare assistant in the ICU: preserved LV function, anteroseptal hypokinesis. Cardiac cath at [facility] on 03/24/18: non obstructive CAD - Monitor on telemetry - ASA 300 mg IA daily - Crestor 10 mg PEG QHS - Duoneb Q6H - Solumedrol 40 mg IV q12, changed from daily - ICU consulted - Cardiology consulted (Moira/Yury/Osman - Pulmonology consulted (Martin) - PT/OT/ST Pulmonary fibrosis, chronic, severe - CT chest: centrilobular emphysema and upper lobe pulmonary fibrosis - O2 via NC - Duoneb Q6H - Solumedrol 40 mg IV Q12H - Pulmonology consulted (Martin)- possible lung Bx when Influenza, acute - Most recent fever 100.9 pn 03/30 - Leukocytosis stable - Influenza A + - Droplet precautions - Legionella, strep pneumo, mycoplasma negative - Tamiflu 03/31-04/05 Acute renal insufficiency - Isolated elevated BUN - Melvin in place - 1/2NS @ 75 mL/hr - Nephrology consulted (Sawyer) Type 2 diabetes mellitus, chronic - Accuchecks Q6H - Hypoglycemic protocol - ISS- medium - Lantus 16 units SC QHS Hypertension, chronic - Vitals Q6H - Losartan 25 mg PEG daily - Lopressor 25 mg PEG BID - Lopressor 5 mg IVP Q6H PRN Ppx: VTE: Heparin 5000 unite SC Q8H, SCDs GI: Protonix 40mg IV daily Code status: full code- Palliative consult- patient and family want him to go back to [facility] when able Case discussed with attending, Dr. Dawson. <Lynette Dawson - Last Filed: 04/03/18 16:13> Objective - Vital Signs/Intake and Output Vital Signs (last 24 hours): Temp Pulse Resp BP Pulse Ox 97.3 F L 64 20 136/83 100 04/03/18 07:56 04/03/18 12:00 04/03/18 07:56 04/03/18 10:21 04/03/18 07:56 Intake and Output: 04/03/18 04/03/18 06:59 18:59 Intake Total 1090 1227 Output Total 1200 Balance -110 1227 - Medications Medications: Current Medications Acetaminophen (Tylenol 650 Mg Supp) 650 mg IA Q6 PRN PRN Reason: fever+pain Aspirin (Aspirin Supp) 300 mg IA DAILY [facility] Last Admin: 04/03/18 10:22 Dose: 300 mg Heparin Sodium (Porcine) (Heparin) 5,000 units SC Q8 [facility] Last Admin: 04/03/18 13:06 Dose: 5,000 units Sodium Chloride (Sodium Chloride 0.45%) 1,000 mls @ 75 mls/hr IV .[id number] [facility] Last Admin: 04/03/18 11:50 Dose: Not Given Cefepime HCl 2 gm/ Dextrose 50 mls @ 100 mls/hr IVPB Q12H [facility]; Protocol Last Admin: 04/03/18 06:48 Dose: 100 mls/hr Insulin Aspart (Novolog) 0 unit SC Q6 [facility]; Protocol Last Admin: 04/03/18 12:55 Dose: 3 units Insulin Glargine (Lantus) 16 unit SC [facility] Last Admin: 04/02/18 21:39 Dose: 16 unit Lorazepam (Ativan) 1 mg IVP Q4H PRN PRN Reason: Restlessness Last Admin: 03/29/18 23:11 Dose: 1 mg Losartan Potassium (Cozaar) 25 mg PEG DAILY [facility] Last Admin: 04/03/18 10:21 Dose: 25 mg Methylprednisolone (Solu-Medrol) 40 mg IVP BID [facility] Last Admin: 04/03/18 10:21 Dose: 40 mg Metoprolol Tartrate (Lopressor) 5 mg IVP Q6 PRN PRN Reason: elevated blood pressure Last Admin: 03/31/18 06:09 Dose: 5 mg Metoprolol Tartrate (Lopressor) 25 mg PEG BID [facility] Last Admin: 04/03/18 10:21 Dose: 25 mg Oseltamivir Phosphate (Tamiflu Susp) 30 mg GT BID [facility]; Protocol Stop: 04/05/18 18:31 Last Admin: 04/03/18 10:22 Dose: 30 mg Pantoprazole Sodium (Protonix Susp) 40 mg PO DAILY [facility] Last Admin: 04/03/18 10:21 Dose: 40 mg Rosuvastatin Calcium (Crestor) 10 mg PO [facility] Last Admin: 04/02/18 21:39 Dose: 10 mg Vitamin A (Vitamin A & D Oint Ud Foilpak) 1 ea TOP Q6 PRN PRN Reason: Dry mouth Last Admin: 03/30/18 22:45 Dose: 1 ea Vitamin A (Vitamin A & D Oint Ud Foilpak) 1 ea TOP Q8 PRN PRN Reason: Dry mouth Last Admin: 04/03/18 13:06 Dose: 1 ea - Labs Labs: 04/03/18 10:56 04/03/18 10:56 PT 12.9 SECONDS (9.7-12.2) H 03/21/18 04:41 INR 1.2 03/21/18 04:41 APTT 51 SECONDS (21-34) H 03/24/18 06:35 Attending/Attestation - Attestation I have personally seen and examined this patient.: Yes I have fully participated in the care of the patient.: Yes I have reviewed all pertinent clinical information, including history, physical exam and plan: Yes Notes (Text): d/w family shows improvements follow PT,OT and speech continue antibiotics Assessment and the plan discussed with the resident
[2018-04-02 08:08] LABS: BASO % 0.1 % (0.0-2.0); HEMOGLOBIN 11.7 g/dL (12.0-18.0); LYMPH # 0.3 K/uL (1.0-4.3); LYMPH % 1.6 % (20.0-40.0); MEAN CELL VOLUME 90.1 fL (80.0-94.0); MEAN CORPUSCULAR HEMOGLOBIN 29.2 pg (27.0-31.0); MEAN CORPUSCULAR HGB CONC 32.4 g/dL (33.0-37.0); MEAN PLATELET VOLUME 12.1 fL (7.2-11.7); MONO # 0.5 K/uL (0.0-0.8); MONO % 2.4 % (0.0-10.0); NEUT % 95.9 % (50.0-75.0); PLATELET COUNT 104 K/uL (130-400); RBC 4.02 Mil/uL (4.40-5.90); RED CELL DISTRIBUTION WIDTH 13.7 % (11.5-14.5); WHITE BLOOD COUNT 20.9 K/uL (4.8-10.8)
[2018-04-02 08:23] LABS: ALBUMIN 2.7 g/dL (3.5-5.0); ALT/SGPT 30 U/L (21-72); AST/SGOT 23 U/L (17-59); BLOOD UREA NITROGEN 51 mg/dL (9-20); CALCIUM 8.3 mg/dl (8.6-10.4); GFR NON-AFRICAN AMERICAN > 60
[2018-04-02] MEDS: Pantoprazole 40 mg Susp UD PO SCH (10:26)
[2018-04-02] MEDS: Oseltamivir 6 MG/ML GT SCH ×2 (10:26→18:59)
[2018-04-02] MEDS: Vitamins A & D Oint UD Foilpak TOP PRN (10:26)
[2018-04-02] MEDS: MethylPREDNISolone 40 mg Vial IVP SCH ×2 (10:26→18:55)
[2018-04-02 11:53] LABS: BANDS 5 % (0-2); LYMPHOCYTE 2 % (20-40); MONOCYTE 3 % (0-10); NEUTROPHIL 90 % (50-75); PLATELET ESTIMATE SLIGHTLY DECREASED (NORMAL); TOTAL CELLS COUNTED 100
[2018-04-02 11:54] LABS: LARGE PLATELETS PRESENT; OVALOCYTES SLIGHT
--- NOTE | 2018-04-02 16:13 | CP.PCM.PN ---
Subjective - Date & Time of Evaluation Date of Evaluation: 04/02/18 Time of Evaluation: 16:11 - Subjective Subjective: Neuro Follow-Up Note: Mr. Mejia was evaluated this afternoon at bedside. Daughter present at bedside. Per daughter pt has been more alert and responsive today Chart reviewed; discussed with primary RN. Also discussed with primary team. Pt has no complaints at this time. He denies h/a, dizziness, visual changes, chest pain, abd pain, n/v/d. Objective - Vital Signs/Intake and Output Vital Signs (last 24 hours): Temp Pulse Resp BP Pulse Ox 97.8 F 63 20 152/94 H 99 04/02/18 07:00 04/02/18 12:00 04/02/18 07:00 04/02/18 10:26 04/02/18 07:00 Intake and Output: 04/02/18 04/02/18 06:59 18:59 Intake Total 600 600 Output Total 1000 500 Balance -400 100 - Medications Medications: Current Medications Acetaminophen (Tylenol 650 Mg Supp) 650 mg NV Q6 PRN PRN Reason: fever+pain Aspirin (Aspirin Supp) 300 mg NV DAILY [facility] Last Admin: 04/02/18 10:27 Dose: 300 mg Heparin Sodium (Porcine) (Heparin) 5,000 units SC Q8 [facility] Last Admin: 04/02/18 13:11 Dose: 5,000 units Sodium Chloride (Sodium Chloride 0.45%) 1,000 mls @ 75 mls/hr IV .[id number] [facility] Last Admin: 04/02/18 06:37 Dose: 75 mls/hr Cefepime HCl 2 gm/ Dextrose 50 mls @ 100 mls/hr IVPB Q12H [facility]; Protocol Last Admin: 04/02/18 06:33 Dose: 100 mls/hr Insulin Aspart (Novolog) 0 unit SC Q6 [facility]; Protocol Last Admin: 04/02/18 12:50 Dose: 3 units Insulin Glargine (Lantus) 16 unit SC HS [facility] Last Admin: 04/01/18 22:23 Dose: 16 unit Lorazepam (Ativan) 1 mg IVP Q4H PRN PRN Reason: Restlessness Last Admin: 03/29/18 23:11 Dose: 1 mg Losartan Potassium (Cozaar) 25 mg PEG DAILY [facility] Last Admin: 04/02/18 10:26 Dose: 25 mg Methylprednisolone (Solu-Medrol) 40 mg IVP BID [facility] Last Admin: 04/02/18 10:26 Dose: 40 mg Metoprolol Tartrate (Lopressor) 5 mg IVP Q6 PRN PRN Reason: elevated blood pressure Last Admin: 03/31/18 06:09 Dose: 5 mg Metoprolol Tartrate (Lopressor) 25 mg PEG BID [facility] Last Admin: 04/02/18 10:26 Dose: 25 mg Oseltamivir Phosphate (Tamiflu Susp) 30 mg GT BID [facility]; Protocol Stop: 04/05/18 18:31 Last Admin: 04/02/18 10:26 Dose: 30 mg Pantoprazole Sodium (Protonix Susp) 40 mg PO DAILY [facility] Last Admin: 04/02/18 10:26 Dose: 40 mg Rosuvastatin Calcium (Crestor) 10 mg PO HS [facility] Last Admin: 04/01/18 22:23 Dose: 10 mg Vitamin A (Vitamin A & D Oint Ud Foilpak) 1 ea TOP Q6 PRN PRN Reason: Dry mouth Last Admin: 03/30/18 22:45 Dose: 1 ea Vitamin A (Vitamin A & D Oint Ud Foilpak) 1 ea TOP Q8 PRN PRN Reason: Dry mouth Last Admin: 04/02/18 10:26 Dose: 1 ea - Labs Labs: 04/02/18 07:54 04/02/18 07:54 PT 12.9 SECONDS (9.7-12.2) H 03/21/18 04:41 INR 1.2 03/21/18 04:41 APTT 51 SECONDS (21-34) H 03/24/18 06:35 - Constitutional Appears: Well, Non-toxic, No Acute Distress - Head Exam Head Exam: ATRAUMATIC, NORMAL INSPECTION, NORMOCEPHALIC - Eye Exam Eye Exam: EOMI, Normal appearance, PERRL Pupil Exam: PERRL - ENT Exam ENT Exam: Mucous Membranes Moist - Neck Exam Neck Exam: Full ROM, Normal Inspection - Respiratory Exam Respiratory Exam: NORMAL BREATHING PATTERN - GI/Abdominal Exam GI & Abdominal Exam: Soft Additional comments: peg w feeding - Extremities Exam Extremities Exam: Full ROM. 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 - Psychiatric Exam Additional comments: awake and alert - Skin Skin Exam: Normal Color Assessment and Plan (1) Cardiac arrest Assessment & Plan: Imaging reviewed: -Head CT (03/26/18): Limited study secondary to suboptimal patient positioning and technique. 1. 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 Further e valuation with CT angiogram of the head and neck is recommended for further evaluation. Additional etiologies are not excluded. In addition, correlation with MRI would also be helpful if clinically indicated. 2. Sinus mucosal disease as above. -Head CT (03/19/18): 9x11mm Right middle cerebral artery aneurysm -Head CT (03/22/18): Mild generalized volume loss. Previously noted right MCA aneurysm. -EEG (03/29/18): This is an abnormal 24 hour VEEG. The presence of diffuse spindles throughout the record as well as a poorly reactive low amplitude background indicates severe encephalopathy/coma state. The absence of epileptiform discharges during the EEG recording does not rule out the diagnosis of a seizure disorder. Mr. Mejia continues to show improvement. He is awake, alert, able to follow some simple commands and is verbally communicating with family and staff. He is more verbal during the morning per daughter. -We recommend a MRI Brain without contrast as pt has exhibited improvement; held today as pt was agitated and daughter is refusing for Ativan to be given; may be done Thursday--will f/u with the results. -Continue ASA, Statin, and Heparin -Continue PT, OT, ST -Recommend speech to re-eval the pt for possible oral intake. -Continue current management. -Notify neuro team of acute changes in condition. Case discussed with Dr. Jay Status: Acute
[2018-04-02] MEDS: (Lantus) Insulin Glargine, Recombinant SC SCH (21:39)
[2018-04-03] MEDS: (Novolog) Insulin Aspart, Recombinant 100 u/ml 10 ml vial SC SCH ×4 (00:02→18:56)
--- NOTE | 2018-04-03 03:56 | CP.PCM.PN ---
<Samantha Joe - Last Filed: 04/03/18 03:53> Subjective - Date & Time of Evaluation Date of Evaluation: 04/03/18 Time of Evaluation: 03:53 - Subjective Subjective: Progress Note Medicine Patient seen with daughter. Daughter realized this evening pt's head is sweaty. VS taken and wnl. Due to pt condition ROS unable to be obtained. No acute changes in mental status lately. Objective - Vital Signs/Intake and Output Vital Signs (last 24 hours): Temp Pulse Resp BP Pulse Ox 97.4 F L 81 20 139/93 H 100 04/02/18 23:28 04/02/18 23:45 04/02/18 23:28 04/02/18 23:28 04/02/18 23:28 Intake and Output: 04/02/18 04/03/18 18:59 06:59 Intake Total 600 1090 Output Total 500 600 Balance 100 490 - Medications Medications: Current Medications Acetaminophen (Tylenol 650 Mg Supp) 650 mg WI Q6 PRN PRN Reason: fever+pain Aspirin (Aspirin Supp) 300 mg WI DAILY [facility] Last Admin: 04/02/18 10:27 Dose: 300 mg Heparin Sodium (Porcine) (Heparin) 5,000 units SC Q8 [facility] Last Admin: 04/02/18 21:46 Dose: 5,000 units Sodium Chloride (Sodium Chloride 0.45%) 1,000 mls @ 75 mls/hr IV .[id number] [facility] Last Admin: 04/02/18 19:05 Dose: 75 mls/hr Cefepime HCl 2 gm/ Dextrose 50 mls @ 100 mls/hr IVPB Q12H [facility]; Protocol Last Admin: 04/02/18 19:00 Dose: 100 mls/hr Insulin Aspart (Novolog) 0 unit SC Q6 [facility]; Protocol Last Admin: 04/03/18 00:02 Dose: Not Given Insulin Glargine (Lantus) 16 unit SC HS [facility] Last Admin: 04/02/18 21:39 Dose: 16 unit Lorazepam (Ativan) 1 mg IVP Q4H PRN PRN Reason: Restlessness Last Admin: 03/29/18 23:11 Dose: 1 mg Losartan Potassium (Cozaar) 25 mg PEG DAILY [facility] Last Admin: 04/02/18 10:26 Dose: 25 mg Methylprednisolone (Solu-Medrol) 40 mg IVP BID [facility] Last Admin: 04/02/18 18:55 Dose: 40 mg Metoprolol Tartrate (Lopressor) 5 mg IVP Q6 PRN PRN Reason: elevated blood pressure Last Admin: 03/31/18 06:09 Dose: 5 mg Metoprolol Tartrate (Lopressor) 25 mg PEG BID [facility] Last Admin: 04/02/18 20:42 Dose: Not Given Oseltamivir Phosphate (Tamiflu Susp) 30 mg GT BID [facility]; Protocol Stop: 04/05/18 18:31 Last Admin: 04/02/18 18:59 Dose: 30 mg Pantoprazole Sodium (Protonix Susp) 40 mg PO DAILY [facility] Last Admin: 04/02/18 10:26 Dose: 40 mg Rosuvastatin Calcium (Crestor) 10 mg PO [facility] Last Admin: 04/02/18 21:39 Dose: 10 mg Vitamin A (Vitamin A & D Oint Ud Foilpak) 1 ea TOP Q6 PRN PRN Reason: Dry mouth Last Admin: 03/30/18 22:45 Dose: 1 ea Vitamin A (Vitamin A & D Oint Ud Foilpak) 1 ea TOP Q8 PRN PRN Reason: Dry mouth Last Admin: 04/02/18 10:26 Dose: 1 ea - Labs Labs: 04/02/18 07:54 04/02/18 07:54 PT 12.9 SECONDS (9.7-12.2) H 03/21/18 04:41 INR 1.2 03/21/18 04:41 APTT 51 SECONDS (21-34) H 03/24/18 06:35 - Constitutional Appears: Well, Non-toxic - Head Exam Head Exam: ATRAUMATIC, NORMAL INSPECTION, NORMOCEPHALIC - Eye Exam Eye Exam: EOMI, Normal appearance - Neck Exam Neck Exam: Normal Inspection - Respiratory Exam Respiratory Exam: Clear to Ausculation Bilateral, NORMAL BREATHING PATTERN - Cardiovascular Exam Cardiovascular Exam: REGULAR RHYTHM - GI/Abdominal Exam GI & Abdominal Exam: Soft, Normal Bowel Sounds - Extremities Exam Extremities Exam: Normal Inspection - Neurological Exam Neurological Exam: Alert, Awake - Skin Skin Exam: Dry, Intact, Normal Color, Warm Assessment and Plan - Assessment and Plan (Free Text) Assessment: 67 y/o male with PMHx of pulm fibrosis, COPD, HTN and DM presented to the ED w/ worsening SOB x 2 months at 03/19. Patient coded in the ED and was in the ICU. Extubated on 03/24 after cardiac cath at [facility] [place] [facility] the same day. Now stable on med surg. AMS - brain encephalopathy vs seizures vs anoxic brain injury - palliative care consult ordered for discuss goals of care, family meeting 11am on 03/31. Family discussed pt's desire of returning to [place] consistent with his wishes. Pending further recs. - Head CT (03/19/18): 9x11mm Right middle cerebral artery aneurysm - Head CT (03/22/18): Mild generalized volume loss. Previously noted right MCA aneurysm. - EEG ordered to r/o seizure activity 24h EEG 03/29-03/[address] Menjivar. Results: severe encepholopathy/coma state. No epileptiform discharges but it does not rule out seizure disorder. - Ativan 1mg IVP Q4H PRN for agitation. Family prefers to avoid ativan until they say he is agitated. Family denies recent agitation. - s/p PEG placement 03/26/18 - Neurology consulted, Dr. Menjivar/Pierre; help appreciated Cardiac arrest/Respiratory failure - On admission 03/19, Initial rhythm asytole, Epi x 3 given, went into VF/VT requiring shock and Amiodarone 300mg. Elevated troponin,EKG LBBB(old). Echo reviewed with palliative care nurse practitioner in the ICU: preserved LV function, anteroseptal hypokinesis. Cardiac cath at [facility] [place] on 03/24/18: non obstructive CAD -continue with HTN meds and COPD exacerbation meds: -- Lopressor 25mg po bid -- Lopressor IVP q6 prn -- Crestor 10mg po hs -- Duoneb q6 -- Solumedrol 40 mg IV q12, changed from daily - [employer] consulted, Dr Cotton, help appreciated - Nematologist consulted, Dr. Salazar, help appreciated Severe pulmonary fibrosis - CT chest: centrilobular emphysema and upper lobe pulmonary fibrosis - Duoneb q6 - Solumedrol IV q12 - Due to leukocytosis, ID started Vanco 1gm IV 124h and Cefepime 2gm IV Q12h on 03/26/18 - tylenol PRN for temp > 100.4 - temp increased to 100.8 03/30 - and WBC 16.7 to 23.4 -> f/u STAT blood cx, CXR, urine cx - Nematologist consulted, Dr Salazar, rec appreciated Influenza - Influenza A + - Legionella, strep pneumo, mycoplasma negative - continue tamiflu started 03/31 and stop 04/05; since the first tamiflu course dropped after 3 days - contact and droplet precautions, remove once tamiflu course is finished - fever noted in 03/30 progress note, resolved. No growth after 24h blood cx, also pending urine cx Acute renal failure - Isolated elevated BUN. - Nephrology consulted, Dr. Jacques; recs appreciated - IVF PRN DM - Accuchecks - ISS, medium - night time lantus increased from 14 to 16 units as BG has been in the 300s - Hypoglycemic protocol HTN - Lopressor 25mg po bid - Lopressor IVP q6 prn - Continue to monitor Supportive care - DVT: heparin 5000u sc Q8, SCDs - GI: protonix 40mg iv daily - PT/OT: continue - ST: evaluation order placed 04/01 dispo: Patient unable to be d/c to rehab due to no insurance. Will need aggressive PT/OT/ST. Has yet to resume PO intake. Patient to eventually return to [facility] when recovered. <Lynette Dawson - Last Filed: 04/03/18 16:01> Objective - Vital Signs/Intake and Output Vital Signs (last 24 hours): Temp Pulse Resp BP Pulse Ox 97.3 F L 64 20 136/83 100 04/03/18 07:56 04/03/18 12:00 04/03/18 07:56 04/03/18 10:21 04/03/18 07:56 Intake and Output: 04/03/18 04/03/18 06:59 18:59 Intake Total 1090 1227 Output Total 1200 Balance -110 1227 - Medications Medications: Current Medications Acetaminophen (Tylenol 650 Mg Supp) 650 mg WI Q6 PRN PRN Reason: fever+pain Aspirin (Aspirin Supp) 300 mg WI DAILY [facility] Last Admin: 04/03/18 10:22 Dose: 300 mg Heparin Sodium (Porcine) (Heparin) 5,000 units SC Q8 [facility] Last Admin: 04/03/18 13:06 Dose: 5,000 units Sodium Chloride (Sodium Chloride 0.45%) 1,000 mls @ 75 mls/hr IV .[id number] [facility] Last Admin: 04/03/18 11:50 Dose: Not Given Cefepime HCl 2 gm/ Dextrose 50 mls @ 100 mls/hr IVPB Q12H [facility]; Protocol Last Admin: 04/03/18 06:48 Dose: 100 mls/hr Insulin Aspart (Novolog) 0 unit SC Q6 [facility]; Protocol Last Admin: 04/03/18 12:55 Dose: 3 units Insulin Glargine (Lantus) 16 unit SC [facility] Last Admin: 04/02/18 21:39 Dose: 16 unit Lorazepam (Ativan) 1 mg IVP Q4H PRN PRN Reason: Restlessness Last Admin: 03/29/18 23:11 Dose: 1 mg Losartan Potassium (Cozaar) 25 mg PEG DAILY [facility] Last Admin: 04/03/18 10:21 Dose: 25 mg Methylprednisolone (Solu-Medrol) 40 mg IVP BID [facility] Last Admin: 04/03/18 10:21 Dose: 40 mg Metoprolol Tartrate (Lopressor) 5 mg IVP Q6 PRN PRN Reason: elevated blood pressure Last Admin: 03/31/18 06:09 Dose: 5 mg Metoprolol Tartrate (Lopressor) 25 mg PEG BID [facility] Last Admin: 04/03/18 10:21 Dose: 25 mg Oseltamivir Phosphate (Tamiflu Susp) 30 mg GT BID [facility]; Protocol Stop: 04/05/18 18:31 Last Admin: 04/03/18 10:22 Dose: 30 mg Pantoprazole Sodium (Protonix Susp) 40 mg PO DAILY [facility] Last Admin: 04/03/18 10:21 Dose: 40 mg Rosuvastatin Calcium (Crestor) 10 mg PO [facility] Last Admin: 04/02/18 21:39 Dose: 10 mg Vitamin A (Vitamin A & D Oint Ud Foilpak) 1 ea TOP Q6 PRN PRN Reason: Dry mouth Last Admin: 03/30/18 22:45 Dose: 1 ea Vitamin A (Vitamin A & D Oint Ud Foilpak) 1 ea TOP Q8 PRN PRN Reason: Dry mouth Last Admin: 04/03/18 13:06 Dose: 1 ea - Labs Labs: 04/03/18 10:56 04/03/18 10:56 PT 12.9 SECONDS (9.7-12.2) H 03/21/18 04:41 INR 1.2 03/21/18 04:41 APTT 51 SECONDS (21-34) H 03/24/18 06:35 Attending/Attestation - Attestation I have personally seen and examined this patient.: Yes I have fully participated in the care of the patient.: Yes I have reviewed all pertinent clinical information, including history, physical exam and plan: Yes Notes (Text): daughter and at bedside. Trying to talk to him,He is following simple commands. Has confusion and sometimes disoriented as per daughter continue antibiotics,follow ID seen and examined,plan discussed with family Neurologist recommending MRI.Patient is keep moving his head. couldn't do it. Try when he improves with less sedation
[2018-04-03] MEDS: MethylPREDNISolone 40 mg Vial IVP SCH ×2 (10:21→18:54)
[2018-04-03] MEDS: Pantoprazole 40 mg Susp UD PO SCH (10:21)
[2018-04-03] MEDS: Oseltamivir 6 MG/ML GT SCH ×2 (10:22→18:55)
[2018-04-03] MEDS: Sodium Chloride 0.45% 1,000 ML IV SCH ×2 (10:27→11:50)
[2018-04-03 11:04] LABS: BASO % 0.2 % (0.0-2.0); EOS # 0.1 K/uL (0.0-0.7); MEAN CORPUSCULAR HEMOGLOBIN 29.1 pg (27.0-31.0); MONO # 0.5 K/uL (0.0-0.8); WHITE BLOOD COUNT 17.6 K/uL (4.8-10.8)
[2018-04-03 11:10] LABS: EOS % 0.3 % (0.0-4.0); HEMOGLOBIN 12.1 g/dL (12.0-18.0); LYMPH # 0.6 K/uL (1.0-4.3); LYMPH % 3.7 % (20.0-40.0); MEAN CELL VOLUME 90.4 fL (80.0-94.0); MEAN CORPUSCULAR HGB CONC 32.2 g/dL (33.0-37.0); MEAN PLATELET VOLUME 12.5 fL (7.2-11.7); NEUT # 16.3 K/uL (1.8-7.0); NEUT % 92.8 % (50.0-75.0); NRBC % 0.1 % (0.0-2.0); RBC 4.14 Mil/uL (4.40-5.90); RED CELL DISTRIBUTION WIDTH 13.5 % (11.5-14.5)
[2018-04-03 11:11] LABS: PLATELET COUNT 101 K/uL (130-400)
[2018-04-03 11:19] LABS: ALBUMIN 2.6 g/dL (3.5-5.0); ALT/SGPT 48 U/L (21-72); AST/SGOT 42 U/L (17-59); BLOOD UREA NITROGEN 41 mg/dL (9-20); CALCIUM 8.2 mg/dl (8.6-10.4); GFR NON-AFRICAN AMERICAN > 60
[2018-04-03 11:41] LABS: BANDS 5 % (0-2); LYMPHOCYTE 3 % (20-40); METAMYELOCYTE 1 % (0-0); MONOCYTE 1 % (0-10); NEUTROPHIL 90 % (50-75); PLATELET ESTIMATE SLIGHTLY DECREASED (NORMAL); TOTAL CELLS COUNTED 100
[2018-04-03 11:42] LABS: LARGE PLATELETS PRESENT
--- NOTE | 2018-04-03 13:04 | CP.PCM.PN ---
Subjective - Date & Time of Evaluation Date of Evaluation: 04/03/18 Time of Evaluation: 12:00 - Subjective Subjective: dictated Objective - Vital Signs/Intake and Output Vital Signs (last 24 hours): Temp Pulse Resp BP Pulse Ox 97.3 F L 64 20 136/83 100 04/03/18 07:56 04/03/18 12:00 04/03/18 07:56 04/03/18 10:21 04/03/18 07:56 Intake and Output: 04/03/18 04/03/18 06:59 18:59 Intake Total 1090 627 Output Total 1200 Balance -110 627 - Medications Medications: Current Medications Acetaminophen (Tylenol 650 Mg Supp) 650 mg WI Q6 PRN PRN Reason: fever+pain Aspirin (Aspirin Supp) 300 mg WI DAILY [facility] Last Admin: 04/03/18 10:22 Dose: 300 mg Heparin Sodium (Porcine) (Heparin) 5,000 units SC Q8 [facility] Last Admin: 04/03/18 06:49 Dose: 5,000 units Sodium Chloride (Sodium Chloride 0.45%) 1,000 mls @ 75 mls/hr IV .[id number] [facility] Last Admin: 04/03/18 11:50 Dose: Not Given Cefepime HCl 2 gm/ Dextrose 50 mls @ 100 mls/hr IVPB Q12H [facility]; Protocol Last Admin: 04/03/18 06:48 Dose: 100 mls/hr Insulin Aspart (Novolog) 0 unit SC Q6 [facility]; Protocol Last Admin: 04/03/18 06:49 Dose: 4 units Insulin Glargine (Lantus) 16 unit SC HS [facility] Last Admin: 04/02/18 21:39 Dose: 16 unit Lorazepam (Ativan) 1 mg IVP Q4H PRN PRN Reason: Restlessness Last Admin: 03/29/18 23:11 Dose: 1 mg Losartan Potassium (Cozaar) 25 mg PEG DAILY [facility] Last Admin: 04/03/18 10:21 Dose: 25 mg Methylprednisolone (Solu-Medrol) 40 mg IVP BID [facility] Last Admin: 04/03/18 10:21 Dose: 40 mg Metoprolol Tartrate (Lopressor) 5 mg IVP Q6 PRN PRN Reason: elevated blood pressure Last Admin: 03/31/18 06:09 Dose: 5 mg Metoprolol Tartrate (Lopressor) 25 mg PEG BID [facility] Last Admin: 04/03/18 10:21 Dose: 25 mg Oseltamivir Phosphate (Tamiflu Susp) 30 mg GT BID [facility]; Protocol Stop: 04/05/18 18:31 Last Admin: 04/03/18 10:22 Dose: 30 mg Pantoprazole Sodium (Protonix Susp) 40 mg PO DAILY [facility] Last Admin: 04/03/18 10:21 Dose: 40 mg Rosuvastatin Calcium (Crestor) 10 mg PO HS [facility] Last Admin: 04/02/18 21:39 Dose: 10 mg Vitamin A (Vitamin A & D Oint Ud Foilpak) 1 ea TOP Q6 PRN PRN Reason: Dry mouth Last Admin: 03/30/18 22:45 Dose: 1 ea Vitamin A (Vitamin A & D Oint Ud Foilpak) 1 ea TOP Q8 PRN PRN Reason: Dry mouth Last Admin: 04/02/18 10:26 Dose: 1 ea - Labs Labs: 04/03/18 10:56 04/03/18 10:56 PT 12.9 SECONDS (9.7-12.2) H 03/21/18 04:41 INR 1.2 03/21/18 04:41 APTT 51 SECONDS (21-34) H 03/24/18 06:35
[2018-04-03] MEDS: Vitamins A & D Oint UD Foilpak TOP PRN (13:06)
--- NOTE | 2018-04-03 20:42 | PN ---
DATE: 04/03/2018 SUMMARY: The patient was seen after several days today. He looks more alert, awake and he is following some commands. According to the daughter, he has been making sense and he has been talking. At times, he gets confused, but otherwise he is there. PHYSICAL EXAMINATION: VITAL SIGNS: T-max is 97.3, pulse 62, blood pressure 131/92, respirations are 20. HEAD: Atraumatic, normocephalic. NECK: Supple. LUNGS: Clear. HEART: S1, S2 is regular. ABDOMEN: Soft, nontender. No guarding, no rigidity present. EXTREMITIES: Have no edema. LABORATORY DATA: His white count is 17 and his creatinine is 0.8, BUN remains 41. He is still on cefepime 2 g every 12 hours. He is only on cefepime at this time and microwise, blood culture x2 have been negative, urine culture has been negative. The last chest x-ray was on 03/20/2017, shows cardiomegaly, moderate pulmonary vascular congestion, central venous congestion. He does have history of pulmonary fibrosis and he had acute respiratory failure. He came in with a cardiac arrest. RECOMMENDATIONS: Suggest at this time to continue the Maxipime until Thursday morning and to reevaluate the white count. If it is coming down, we probably can discontinue the antibiotics. Rizwana Reddy MD
[2018-04-03] MEDS: (Lantus) Insulin Glargine, Recombinant SC SCH (21:45)
[2018-04-04] MEDS: (Novolog) Insulin Aspart, Recombinant 100 u/ml 10 ml vial SC SCH ×4 (00:07→18:11)
--- NOTE | 2018-04-04 03:42 | CP.PCM.PN ---
<Samantha Joe - Last Filed: 04/04/18 03:40> Subjective - Date & Time of Evaluation Date of Evaluation: 04/04/18 Time of Evaluation: 03:40 - Subjective Subjective: Medicine Progress Note Patient seen with daughter. Patient still sweaty and VS still within normal limits. No acute changes in behavior per daughter. due to patient condition ROS unable to be obtained. Objective - Vital Signs/Intake and Output Vital Signs (last 24 hours): Temp Pulse Resp BP Pulse Ox 97.4 F L 60 20 121/81 100 04/03/18 23:39 04/03/18 23:39 04/03/18 23:39 04/03/18 23:39 04/03/18 23:39 Intake and Output: 04/03/18 04/04/18 18:59 06:59 Intake Total 1227 1090 Output Total 1000 Balance 1227 90 - Medications Medications: Current Medications Acetaminophen (Tylenol 650 Mg Supp) 650 mg OK Q6 PRN PRN Reason: fever+pain Aspirin (Aspirin Supp) 300 mg OK DAILY [facility] Last Admin: 04/03/18 10:22 Dose: 300 mg Heparin Sodium (Porcine) (Heparin) 5,000 units SC Q8 [facility] Last Admin: 04/03/18 21:44 Dose: 5,000 units Sodium Chloride (Sodium Chloride 0.45%) 1,000 mls @ 75 mls/hr IV .[id number] [facility] Last Admin: 04/03/18 11:50 Dose: Not Given Cefepime HCl 2 gm/ Dextrose 50 mls @ 100 mls/hr IVPB Q12H [facility]; Protocol Last Admin: 04/03/18 18:59 Dose: 100 mls/hr Insulin Aspart (Novolog) 0 unit SC Q6 [facility]; Protocol Last Admin: 04/04/18 00:07 Dose: Not Given Insulin Glargine (Lantus) 16 unit SC HS [facility] Last Admin: 04/03/18 21:45 Dose: 16 unit Lorazepam (Ativan) 1 mg IVP Q4H PRN PRN Reason: Restlessness Last Admin: 03/29/18 23:11 Dose: 1 mg Losartan Potassium (Cozaar) 25 mg PEG DAILY [facility] Last Admin: 04/03/18 10:21 Dose: 25 mg Methylprednisolone (Solu-Medrol) 40 mg IVP BID [facility] Last Admin: 04/03/18 18:54 Dose: 40 mg Metoprolol Tartrate (Lopressor) 5 mg IVP Q6 PRN PRN Reason: elevated blood pressure Last Admin: 03/31/18 06:09 Dose: 5 mg Metoprolol Tartrate (Lopressor) 25 mg PEG BID [facility] Last Admin: 04/03/18 18:57 Dose: 25 mg Oseltamivir Phosphate (Tamiflu Susp) 30 mg GT BID [facility]; Protocol Stop: 04/05/18 18:31 Last Admin: 04/03/18 18:55 Dose: 30 mg Pantoprazole Sodium (Protonix Susp) 40 mg PO DAILY [facility] Last Admin: 04/03/18 10:21 Dose: 40 mg Rosuvastatin Calcium (Crestor) 10 mg PO HS [facility] Last Admin: 04/03/18 21:46 Dose: 10 mg Vitamin A (Vitamin A & D Oint Ud Foilpak) 1 ea TOP Q6 PRN PRN Reason: Dry mouth Last Admin: 03/30/18 22:45 Dose: 1 ea Vitamin A (Vitamin A & D Oint Ud Foilpak) 1 ea TOP Q8 PRN PRN Reason: Dry mouth Last Admin: 04/03/18 13:06 Dose: 1 ea - Labs Labs: 04/03/18 10:56 04/03/18 10:56 PT 12.9 SECONDS (9.7-12.2) H 03/21/18 04:41 INR 1.2 03/21/18 04:41 APTT 51 SECONDS (21-34) H 03/24/18 06:35 - Constitutional Appears: Well, Non-toxic - Head Exam Head Exam: ATRAUMATIC, NORMAL INSPECTION, NORMOCEPHALIC - Eye Exam Eye Exam: EOMI, Normal appearance - ENT Exam ENT Exam: Normal Exam - Respiratory Exam Respiratory Exam: Clear to Ausculation Bilateral, NORMAL BREATHING PATTERN - Cardiovascular Exam Cardiovascular Exam: REGULAR RHYTHM - GI/Abdominal Exam GI & Abdominal Exam: Soft, Normal Bowel Sounds - Extremities Exam Extremities Exam: Normal Capillary Refill, Normal Inspection Additional comments: cool extremities - Neurological Exam Neurological Exam: Alert, Awake - Skin Skin Exam: Dry, Intact, Normal Color Assessment and Plan - Assessment and Plan (Free Text) Assessment: 67 y/o male with PMHx of pulm fibrosis, COPD, HTN and DM presented to the ED w/ worsening SOB x 2 months at 1/4. Patient coded in the ED and was in the ICU. Extubated on 03/24 after cardiac cath at [facility] the same day. Now stable on med surg. AMS - brain encephalopathy vs seizures vs anoxic brain injury - palliative care consult ordered for discuss goals of care, family meeting 11am on 03/31. Family discussed pt's desire of returning to [place] consistent with his wishes. Pending further recs. - Head CT (03/19/18): 9x11mm Right middle cerebral artery aneurysm - Head CT (03/22/18): Mild generalized volume loss. Previously noted right MCA aneurysm. - EEG ordered to r/o seizure activity 24h EEG 03/29-03/[address] Menjivar. Results: severe encepholopathy/coma state. No epileptiform discharges but it does not rule out seizure disorder. - Ativan 1mg IVP Q4H PRN for agitation. Family prefers to avoid ativan until they say he is agitated. Family denies recent agitation. - s/p PEG placement 03/26/18 - Neurology consulted, Dr. Menjivar/Pierre; help appreciated Cardiac arrest/Respiratory failure - On admission 03/19, Initial rhythm asytole, Epi x 3 given, went into VF/VT requiring shock and Amiodarone 300mg. Elevated troponin,EKG LBBB(old). Echo reviewed with high school learning support teacher in the ICU: preserved LV function, anteroseptal hypokinesis. Cardiac cath at [facility] on 03/24/18: non obstructive CAD -continue with HTN meds and COPD exacerbation meds: -- Lopressor 25mg po bid -- Lopressor IVP q6 prn -- Crestor 10mg po hs -- Duoneb q6 -- Solumedrol 40 mg IV q12, changed from daily - Scarf And Anneal Operator consulted, Dr Cotton, help appreciated - Corn Press Operator consulted, Dr. Salazar, help appreciated Severe pulmonary fibrosis - CT chest: centrilobular emphysema and upper lobe pulmonary fibrosis - Duoneb q6 - Solumedrol IV q12 - Due to leukocytosis, ID started Vanco 1gm IV 124h and Cefepime 2gm IV Q12h on 03/26/18 - tylenol PRN for temp > 100.4 - temp increased to 100.8 03/30 - and WBC 16.7 to 23.4 -> f/u STAT blood cx, CXR, urine cx - Corn Press Operator consulted, Dr Salazar, rec appreciated Influenza - Influenza A + - Legionella, strep pneumo, mycoplasma negative - continue tamiflu started 03/31 and stop 04/05; since the first tamiflu course dropped after 3 days - contact and droplet precautions, remove once tamiflu course is finished - fever noted in 03/30 progress note, resolved. No growth after 24h blood cx, also pending urine cx Acute renal failure - Isolated elevated BUN. - Nephrology consulted, Dr. Jacques; recs appreciated - IVF PRN DM - Accuchecks - ISS, medium - night time lantus increased from 14 to 16 units as BG has been in the 300s - Hypoglycemic protocol HTN - Lopressor 25mg po bid - Lopressor IVP q6 prn - Continue to monitor Supportive care - DVT: heparin 5000u sc Q8, SCDs - GI: protonix 40mg iv daily - PT/OT: continue - ST: evaluation order placed 04/01 dispo: Patient unable to be d/c to rehab due to no insurance. Will need aggressive PT/OT/ST. Has yet to resume PO intake. Patient to eventually return to [facility] when recovered. <Lynette Dawson - Last Filed: 04/06/18 11:37> Objective - Vital Signs/Intake and Output Vital Signs (last 24 hours): Temp Pulse Resp BP Pulse Ox 97.2 F L 64 20 133/87 95 04/06/18 08:00 04/06/18 08:00 04/06/18 08:00 04/06/18 10:58 04/06/18 08:00 Intake and Output: 04/06/18 04/06/18 06:59 18:59 Intake Total 1040 600 Output Total 1600 Balance -560 600 - Medications Medications: Current Medications Acetaminophen (Tylenol 650 Mg Supp) 650 mg OK Q6 PRN PRN Reason: fever+pain Aspirin (Aspirin Supp) 300 mg OK DAILY [facility] Last Admin: 04/05/18 10:50 Dose: 300 mg Cefepime HCl 2 gm/ Sodium (Chloride) 100 mls @ 100 mls/hr IVPB Q12H [facility]; Protocol Last Admin: 04/06/18 09:04 Dose: 100 mls/hr Insulin Aspart (Novolog) 0 unit SC Q6 [facility]; Protocol Last Admin: 04/06/18 06:59 Dose: 6 units Insulin Glargine (Lantus) 20 unit SC [facility] Last Admin: 04/05/18 22:26 Dose: 20 unit Losartan Potassium (Cozaar) 25 mg PEG DAILY [facility] Last Admin: 04/06/18 11:00 Dose: 25 mg Methylprednisolone (Solu-Medrol) 40 mg IVP BID [facility] Last Admin: 04/06/18 10:58 Dose: 40 mg Metoprolol Tartrate (Lopressor) 5 mg IVP Q6 PRN PRN Reason: elevated blood pressure Last Admin: 03/31/18 06:09 Dose: 5 mg Metoprolol Tartrate (Lopressor) 25 mg PEG BID [facility] Last Admin: 04/06/18 10:58 Dose: 25 mg Pantoprazole Sodium (Protonix Susp) 40 mg PO DAILY [facility] Last Admin: 04/06/18 10:58 Dose: 40 mg Rosuvastatin Calcium (Crestor) 10 mg PO [facility] Last Admin: 04/05/18 22:26 Dose: 10 mg Vitamin A (Vitamin A & D Oint Ud Foilpak) 1 ea TOP Q6 PRN PRN Reason: Dry mouth Last Admin: 04/06/18 10:58 Dose: 1 ea Vitamin A (Vitamin A & D Oint Ud Foilpak) 1 ea TOP Q8 PRN PRN Reason: Dry mouth Last Admin: 04/03/18 13:06 Dose: 1 ea - Labs Labs: 04/06/18 06:36 04/06/18 06:36 PT 12.9 SECONDS (9.7-12.2) H 03/21/18 04:41 INR 1.2 03/21/18 04:41 APTT 51 SECONDS (21-34) H 03/24/18 06:35 Attending/Attestation - Attestation I have personally seen and examined this patient.: Yes I have fully participated in the care of the patient.: Yes I have reviewed all pertinent clinical information, including history, physical exam and plan: Yes Notes (Text): Seen and examined by me.Patient is awake and talking. mostly confused. Occasional answers for simple questions,getting tube feeding follow speech,PT and OT continue steroid and antibiotics. follow ID about antibitoics monitor sugar
[2018-04-04 08:18] LABS: BASO % 0.1 % (0.0-2.0); HEMOGLOBIN 12.3 g/dL (12.0-18.0); LYMPH # 0.4 K/uL (1.0-4.3); LYMPH % 2.3 % (20.0-40.0); MEAN CELL VOLUME 89.6 fL (80.0-94.0); MEAN CORPUSCULAR HEMOGLOBIN 28.8 pg (27.0-31.0); MEAN CORPUSCULAR HGB CONC 32.1 g/dL (33.0-37.0); MEAN PLATELET VOLUME 12.3 fL (7.2-11.7); MONO # 0.5 K/uL (0.0-0.8); MONO % 2.9 % (0.0-10.0); NEUT # 16.2 K/uL (1.8-7.0); NEUT % 94.7 % (50.0-75.0); PLATELET COUNT 91 K/uL (130-400); RBC 4.28 Mil/uL (4.40-5.90); RED CELL DISTRIBUTION WIDTH 13.4 % (11.5-14.5); WHITE BLOOD COUNT 17.2 K/uL (4.8-10.8)
[2018-04-04 08:30] LABS: ALBUMIN 2.7 g/dL (3.5-5.0); ALT/SGPT 58 U/L (21-72); AST/SGOT 37 U/L (17-59); BLOOD UREA NITROGEN 37 mg/dL (9-20); CALCIUM 8.1 mg/dl (8.6-10.4); GFR NON-AFRICAN AMERICAN > 60
[2018-04-04] MEDS: Pantoprazole 40 mg Susp UD PO SCH (09:59)
[2018-04-04] MEDS: Oseltamivir 6 MG/ML GT SCH ×2 (09:59→18:10)
[2018-04-04] MEDS: MethylPREDNISolone 40 mg Vial IVP SCH ×2 (09:59→18:11)
[2018-04-04 11:49] LABS: BANDS 2 % (0-2); LYMPHOCYTE 2 % (20-40); MONOCYTE 4 % (0-10); NEUTROPHIL 92 % (50-75); PLATELET ESTIMATE DECREASED (NORMAL); TOTAL CELLS COUNTED 100
[2018-04-04 11:50] LABS: ANISOCYTOSIS SLIGHT; GIANT PLATELETS PRESENT; HYPOCHROMIC SLIGHT; LARGE PLATELETS PRESENT; TOXIC GRANULATION PRESENT
[2018-04-04 11:51] LABS: POLYCHROMIC SLIGHT
[2018-04-04] MEDS: Sodium Chloride 0.45% 1,000 ML IV SCH (19:36)
[2018-04-04] MEDS: (Lantus) Insulin Glargine, Recombinant SC SCH (21:55)
[2018-04-05] MEDS: (Novolog) Insulin Aspart, Recombinant 100 u/ml 10 ml vial SC SCH ×4 (00:15→18:58)
[2018-04-05 07:18] LABS: BASO % 0.1 % (0.0-2.0); HEMOGLOBIN 12.5 g/dL (12.0-18.0); LYMPH # 0.3 K/uL (1.0-4.3); MEAN CELL VOLUME 89.7 fL (80.0-94.0); MEAN CORPUSCULAR HEMOGLOBIN 29.4 pg (27.0-31.0); MEAN CORPUSCULAR HGB CONC 32.8 g/dL (33.0-37.0); MEAN PLATELET VOLUME 12.2 fL (7.2-11.7); MONO # 0.5 K/uL (0.0-0.8); MONO % 3.1 % (0.0-10.0); NEUT # 14.6 K/uL (1.8-7.0); NEUT % 94.8 % (50.0-75.0); PLATELET COUNT 92 K/uL (130-400); RBC 4.24 Mil/uL (4.40-5.90); RED CELL DISTRIBUTION WIDTH 13.4 % (11.5-14.5); WHITE BLOOD COUNT 15.4 K/uL (4.8-10.8)
--- NOTE | 2018-04-05 07:21 | CP.PCM.PN ---
Subjective - Date & Time of Evaluation Date of Evaluation: 04/05/18 Time of Evaluation: 07:19 - Subjective Subjective: Medicine Progress Note for Dr. Tong Patient seen and examined at bedside alongside daughter. Patient able to converse at times but is confused; sometimes he knows his daughter and sometimes he doesnt. Otherwise no acute changes from yesterday. Objective - Vital Signs/Intake and Output Vital Signs (last 24 hours): Temp Pulse Resp BP Pulse Ox 98.4 F 61 20 138/93 H 95 04/04/18 23:35 04/04/18 23:40 04/04/18 23:35 04/04/18 23:35 04/04/18 23:35 Intake and Output: 04/05/18 04/05/18 06:59 18:59 Intake Total 600 Output Total 600 Balance 0 - Medications Medications: Current Medications Acetaminophen (Tylenol 650 Mg Supp) 650 mg [place] Q6 PRN PRN Reason: fever+pain Aspirin (Aspirin Supp) 300 mg [place] DAILY [facility] Last Admin: 04/04/18 09:59 Dose: 300 mg Heparin Sodium (Porcine) (Heparin) 5,000 units SC Q8 [facility] Last Admin: 04/05/18 06:51 Dose: 5,000 units Sodium Chloride (Sodium Chloride 0.45%) 1,000 mls @ 75 mls/hr IV .[id number] [facility] Last Admin: 04/04/18 19:36 Dose: 75 mls/hr Cefepime HCl 2 gm/ Dextrose 50 mls @ 100 mls/hr IVPB Q12H [facility]; Protocol Last Admin: 04/04/18 19:35 Dose: 100 mls/hr Insulin Aspart (Novolog) 0 unit SC Q6 [facility]; Protocol Last Admin: 04/05/18 06:53 Dose: 6 units Insulin Glargine (Lantus) 20 unit SC HS [facility] Last Admin: 04/04/18 21:55 Dose: 20 unit Losartan Potassium (Cozaar) 25 mg PEG DAILY [facility] Last Admin: 04/04/18 09:59 Dose: 25 mg Methylprednisolone (Solu-Medrol) 40 mg IVP BID [facility] Last Admin: 04/04/18 18:11 Dose: 40 mg Metoprolol Tartrate (Lopressor) 5 mg IVP Q6 PRN PRN Reason: elevated blood pressure Last Admin: 03/31/18 06:09 Dose: 5 mg Metoprolol Tartrate (Lopressor) 25 mg PEG BID [facility] Last Admin: 04/04/18 18:10 Dose: 25 mg Oseltamivir Phosphate (Tamiflu Susp) 30 mg GT BID [facility]; Protocol Stop: 04/05/18 18:31 Last Admin: 04/04/18 18:10 Dose: 30 mg Pantoprazole Sodium (Protonix Susp) 40 mg PO DAILY [facility] Last Admin: 04/04/18 09:59 Dose: 40 mg Rosuvastatin Calcium (Crestor) 10 mg PO HS [facility] Last Admin: 04/04/18 22:01 Dose: 10 mg Vitamin A (Vitamin A & D Oint Ud Foilpak) 1 ea TOP Q6 PRN PRN Reason: Dry mouth Last Admin: 03/30/18 22:45 Dose: 1 ea Vitamin A (Vitamin A & D Oint Ud Foilpak) 1 ea TOP Q8 PRN PRN Reason: Dry mouth Last Admin: 04/03/18 13:06 Dose: 1 ea - Labs Labs: 04/04/18 07:56 04/04/18 07:56 PT 12.9 SECONDS (9.7-12.2) H 03/21/18 04:41 INR 1.2 03/21/18 04:41 APTT 51 SECONDS (21-34) H 03/24/18 06:35 Assessment and Plan - Assessment and Plan (Free Text) Assessment: 67 y/o male with PMHx of pulm fibrosis, COPD, HTN and DM presented to the ED w/ worsening SOB x 2 months at 03/19. Patient coded in the ED and was in the ICU. Extubated on 03/24 after cardiac cath at [facility] the same day. Now stable on med surg. AMS - brain encephalopathy vs seizures vs anoxic brain injury - palliative care consult ordered for discuss goals of care, family meeting 11am on 03/31. Family discussed pt's desire of returning to [facility] consistent with his wishes. Pending further recs. - Head CT (03/19/18): 9x11mm Right middle cerebral artery aneurysm - Head CT (03/22/18): Mild generalized volume loss. Previously noted right MCA aneurysm. - EEG ordered to r/o seizure activity 24h EEG 03/29-03/[address] Menjivar. Results: severe encepholopathy/coma state. No epileptiform discharges but it does not rule out seizure disorder. - Ativan 1mg IVP Q4H PRN for agitation. Family prefers to avoid ativan until they say he is agitated. Family denies recent agitation. - s/p PEG placement 03/26/18 - Neurology consulted, Dr. Menjivar/Pierre; help appreciated -MRI ordered, pending results Cardiac arrest/Respiratory failure - On admission 03/19, Initial rhythm asytole, Epi x 3 given, went into VF/VT requiring shock and Amiodarone 300mg. Elevated troponin,EKG LBBB(old). Echo reviewed with vocational counselor in the ICU: preserved LV function, anteroseptal hypokinesis. Cardiac cath at [facility] on 03/24/18: non obstructive CAD -continue with HTN meds and COPD exacerbation meds: -- Lopressor 25mg po bid -- Lopressor IVP q6 prn -- Crestor 10mg po hs -- Duoneb q6 -- Solumedrol 40 mg IV q12, changed from daily - Casting Inspector consulted, Dr Cotton, help appreciated - Java Groovy Developer consulted, Dr. Salazar, help appreciated Severe pulmonary fibrosis - CT chest: centrilobular emphysema and upper lobe pulmonary fibrosis - Duoneb q6 - Solumedrol IV q12 - Due to leukocytosis, ID started Vanco 1gm IV 124h and Cefepime 2gm IV Q12h on 03/26/18. ID recs to stop 04/06. - tylenol PRN for temp > 100.4 - Java Groovy Developer consulted, Dr Salazar, rec appreciated Influenza - Resolved - Influenza A + - s/p tamiflu treatment, contract precautions removed - Legionella, strep pneumo, mycoplasma negative Acute renal failure - Isolated elevated BUN. - Nephrology consulted, Dr. Jacques; recs appreciated - IVF PRN DM - Accuchecks - ISS, medium - lantus 16 units qhs - Hypoglycemic protocol HTN - Lopressor 25mg po bid - Lopressor IVP q6 prn - Continue to monitor Supportive care - DVT: heparin 5000u sc Q8, SCDs - GI: protonix 40mg iv daily - PT/OT: continue - ST: evaluation order placed 04/01 dispo: Patient unable to be d/c to rehab due to no insurance. Will need aggressive PT/OT/ST. Has yet to resume PO intake. Patient to eventually return to [facility] when recovered.
[2018-04-05 07:40] LABS: ALB/GLOB RATIO 0.9 (1.0-2.1); ALBUMIN 2.6 g/dL (3.5-5.0); ALT/SGPT 69 U/L (21-72); AST/SGOT 49 U/L (17-59); BLOOD UREA NITROGEN 35 mg/dL (9-20); GFR NON-AFRICAN AMERICAN > 60
[2018-04-05 09:34] LABS: BANDS 4 % (0-2); NEUTROPHIL 92 % (50-75); TOTAL CELLS COUNTED 100
[2018-04-05 09:35] LABS: LARGE PLATELETS PRESENT; LYMPHOCYTE 2 % (20-40); MONOCYTE 2 % (0-10); PLATELET ESTIMATE DECREASED (NORMAL); POIKILOCYTOSIS SLIGHT; TEARDROP CELLS SLIGHT
[2018-04-05] MEDS: Cefepime 2 GM in Sodium Chloride 0.9% 100 ML IVPB SCH ×2 (10:45→21:30)
[2018-04-05] MEDS: Oseltamivir 6 MG/ML GT SCH ×2 (10:50→18:55)
[2018-04-05] MEDS: MethylPREDNISolone 40 mg Vial IVP SCH ×2 (11:25→18:59)
[2018-04-05] MEDS: Vitamins A & D Oint UD Foilpak TOP PRN (11:26)
[2018-04-05] MEDS: Pantoprazole 40 mg Susp UD PO SCH (11:26)
[2018-04-05] MEDS: Sodium Chloride 0.45% 1,000 ML IV SCH (11:32)
--- NOTE | 2018-04-05 15:48 | MRI ---
Date of service: 04/05/2018 PROCEDURE: MRI BRAIN WITHOUT CONTRAST HISTORY: s/p code blue COMPARISON: None available. TECHNIQUE: Multiplanar, multisequence MR images of the brain were obtained without intravenous contrast enhancement. FINDINGS: Limitations: Extensive motion artifacts across various sequences. HEMORRHAGE: None DWI: No evidence of an acute or early subacute infarction. BRAIN PARENCHYMA: Good corticomedullary differentiation is seen. Proportional, diffuse expansion of the ventriculosulcal and cisternal spaces is appreciated with white matter lucency compatible with diffuse cerebral atrophy and chronic microangiopathy. No suspicious extra-axial fluid collection is identified and the midline brain anatomy appears grossly nonfocal as imaged. There is no mass effect throughout. VENTRICLES: Unremarkable. No hydrocephalus. CRANIUM: Unremarkable. ORBITS: Grossly unremarkable. PARANASAL SINUSES/MASTOIDS: Right maxillary sinus polyp or cyst identified once again. VASCULAR SYSTEM: Skull base flow voids intact. OTHER FINDINGS: None. IMPRESSION: Age-related degenerative changes are reiterated which appear age-appropriate. No definite acute intracranial findings by standard MR criteria. Motion artifacts limit the examination across numerous sequences in this exam.
--- NOTE | 2018-04-05 16:16 | CP.PCM.PN ---
Subjective - Date & Time of Evaluation Date of Evaluation: 04/05/18 Time of Evaluation: 16:14 - Subjective Subjective: Neuro Follow-Up Note: Mr. Mejia was evaluated this afternoon at bedside. present at bedside. Pt had MRI Brain done today and was pre-medicated for the test. He is very drowsy but arousable at the time of exam. ROS unobtainable from the pt today as he is drowsy after being given Ativan for MRI. Objective - Vital Signs/Intake and Output Vital Signs (last 24 hours): Temp Pulse Resp BP Pulse Ox 98.2 F 65 18 134/90 94 L 04/05/18 07:36 04/05/18 07:55 04/05/18 07:36 04/05/18 11:25 04/05/18 07:36 Intake and Output: 04/05/18 04/05/18 06:59 18:59 Intake Total 600 940 Output Total 600 1375 Balance 0 -435 - Medications Medications: Current Medications Acetaminophen (Tylenol 650 Mg Supp) 650 mg ND Q6 PRN PRN Reason: fever+pain Aspirin (Aspirin Supp) 300 mg ND DAILY [facility] Last Admin: 04/05/18 10:50 Dose: 300 mg Cefepime HCl 2 gm/ Sodium (Chloride) 100 mls @ 100 mls/hr IVPB Q12H [facility]; Protocol Last Admin: 04/05/18 10:45 Dose: 100 mls/hr Insulin Aspart (Novolog) 0 unit SC Q6 [facility]; Protocol Last Admin: 04/05/18 12:14 Dose: 3 units Insulin Glargine (Lantus) 20 unit SC HS [facility] Last Admin: 04/04/18 21:55 Dose: 20 unit Losartan Potassium (Cozaar) 25 mg PEG DAILY [facility] Last Admin: 04/05/18 11:25 Dose: 25 mg Methylprednisolone (Solu-Medrol) 40 mg IVP BID [facility] Last Admin: 04/05/18 11:25 Dose: 40 mg Metoprolol Tartrate (Lopressor) 5 mg IVP Q6 PRN PRN Reason: elevated blood pressure Last Admin: 03/31/18 06:09 Dose: 5 mg Metoprolol Tartrate (Lopressor) 25 mg PEG BID [facility] Last Admin: 04/05/18 11:25 Dose: 25 mg Oseltamivir Phosphate (Tamiflu Susp) 30 mg GT BID [facility]; Protocol Stop: 04/05/18 18:31 Last Admin: 04/05/18 10:50 Dose: 30 mg Pantoprazole Sodium (Protonix Susp) 40 mg PO DAILY [facility] Last Admin: 04/05/18 11:26 Dose: 40 mg Rosuvastatin Calcium (Crestor) 10 mg PO HS [facility] Last Admin: 04/04/18 22:01 Dose: 10 mg Vitamin A (Vitamin A & D Oint Ud Foilpak) 1 ea TOP Q6 PRN PRN Reason: Dry mouth Last Admin: 04/05/18 11:26 Dose: 1 ea Vitamin A (Vitamin A & D Oint Ud Foilpak) 1 ea TOP Q8 PRN PRN Reason: Dry mouth Last Admin: 04/03/18 13:06 Dose: 1 ea - Labs Labs: 04/05/18 06:59 04/05/18 06:59 PT 12.9 SECONDS (9.7-12.2) H 03/21/18 04:41 INR 1.2 03/21/18 04:41 APTT 51 SECONDS (21-34) H 03/24/18 06:35 - Constitutional Appears: No Acute Distress (very drowsy; given Ativan for MRI) - Head Exam Head Exam: ATRAUMATIC, NORMAL INSPECTION, NORMOCEPHALIC - Eye Exam Eye Exam: Normal appearance, PERRL Pupil Exam: NORMAL ACCOMODATION - ENT Exam ENT Exam: Mucous Membranes Moist - Neck Exam Neck Exam: Normal Inspection - Respiratory Exam Respiratory Exam: NORMAL BREATHING PATTERN - GI/Abdominal Exam GI & Abdominal Exam: Soft Additional comments: peg - Extremities Exam Extremities Exam: absent: Calf Tenderness, Pedal Edema Additional comments: unable to assess ROM 2/2 pt very drowsy after being given Ativan for MRI - Back Exam Back Exam: NORMAL INSPECTION - Neurological Exam Neurological Exam: absent: Awake Additional comments: Unable to fully assess 2/2 pt very drowsy after being given Ativan for MRI Arousable and responds to sternal rub Unable to follow commands No tremors or clonus Toes down going b/l - Psychiatric Exam Additional comments: unable to assess 2/2 pt very drowsy after being given Ativan for MRI - Skin Skin Exam: Normal Color Assessment and Plan (1) Cardiac arrest Assessment & Plan: Imaging reviewed: -MRI Brain (04/05/18): Age related degenerative changes are reinterated which appear age-appropriate. No definite acute intracranial findingd by standard MR criteria. Motion infarcts limit the examination across numerous sequences in this exam. -Head CT (03/26/18): Limited study secondary to suboptimal patient positioning and technique. 1. 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 Further evaluation with CT angiogram of the head and neck is recommended for further evaluation. Additional etiologies are not excluded. In addition, correlation with MRI would also be helpful if clinically indicated. 2. Sinus mucosal disease as above. -Head CT (03/19/18): 9x11mm Right middle cerebral artery aneurysm -Head CT (03/22/18): Mild generalized volume loss. Previously noted right MCA aneurysm. -EEG (03/29/18): This is an abnormal 24 hour VEEG. The presence of diffuse spindles throughout the record as well as a poorly reactive low amplitude background indicates severe encephalopathy/coma state. The absence of epileptiform discharges during the EEG recording does not rule out the diagnosis of a seizure disorder. Mr. Mejia is very drowsy today and unable to participate in neuro exam as he was medicated with Ativan for MRI Brain this afternoon. -Continue ASA and Statin -Continue PT, OT, ST -Recommend speech to re-eval the pt for possible oral intake. -Continue current management. -Notify neuro team of acute changes in condition. Case discussed with Dr. Jay Status: Acute
[2018-04-05] MEDS: (Lantus) Insulin Glargine, Recombinant SC SCH (22:26)
[2018-04-06] MEDS: (Novolog) Insulin Aspart, Recombinant 100 u/ml 10 ml vial SC SCH ×5 (00:17→22:11)
[2018-04-06 06:49] LABS: BASO % 0.2 % (0.0-2.0); HEMOGLOBIN 12.6 g/dL (12.0-18.0); LYMPH # 0.4 K/uL (1.0-4.3); LYMPH % 2.3 % (20.0-40.0); MEAN CELL VOLUME 89.3 fL (80.0-94.0); MEAN CORPUSCULAR HEMOGLOBIN 28.8 pg (27.0-31.0); MEAN CORPUSCULAR HGB CONC 32.3 g/dL (33.0-37.0); MEAN PLATELET VOLUME 12.2 fL (7.2-11.7); MONO # 0.5 K/uL (0.0-0.8); NEUT # 14.6 K/uL (1.8-7.0); NEUT % 94.5 % (50.0-75.0); PLATELET COUNT 104 K/uL (130-400); RBC 4.39 Mil/uL (4.40-5.90); RED CELL DISTRIBUTION WIDTH 13.7 % (11.5-14.5); WHITE BLOOD COUNT 15.5 K/uL (4.8-10.8)
[2018-04-06 07:16] LABS: ALBUMIN 2.6 g/dL (3.5-5.0); ALT/SGPT 79 U/L (21-72); AST/SGOT 42 U/L (17-59); BLOOD UREA NITROGEN 37 mg/dL (9-20); CALCIUM 7.8 mg/dl (8.6-10.4); GFR NON-AFRICAN AMERICAN > 60
[2018-04-06 08:40] LABS: BANDS 2 % (0-2); LYMPHOCYTE 1 % (20-40); MONOCYTE 3 % (0-10); NEUTROPHIL 94 % (50-75); PLATELET ESTIMATE SLIGHTLY DECREASED (NORMAL); TOTAL CELLS COUNTED 100
[2018-04-06 08:43] LABS: GIANT PLATELETS PRESENT; LARGE PLATELETS PRESENT; OVALOCYTES SLIGHT
[2018-04-06] MEDS: Cefepime 2 GM in Sodium Chloride 0.9% 100 ML IVPB SCH ×2 (09:04→20:15)
[2018-04-06] MEDS: Vitamins A & D Oint UD Foilpak TOP PRN (10:58)
[2018-04-06] MEDS: MethylPREDNISolone 40 mg Vial IVP SCH ×2 (10:58→17:59)
[2018-04-06] MEDS: Pantoprazole 40 mg Susp UD PO SCH (10:58)
--- NOTE | 2018-04-06 15:58 | CP.PCM.PN ---
Subjective - Date & Time of Evaluation Date of Evaluation: 04/06/18 Time of Evaluation: 15:54 - Subjective Subjective: Medicine Progress Note for Dr. Tong Patient seen and examined at bedside this morning with daughter. Per daughter patient still confused and only oriented to self. She also states patient wants to drink tea so would like swallow study to be done soon. Objective - Vital Signs/Intake and Output Vital Signs (last 24 hours): Temp Pulse Resp BP Pulse Ox 97.2 F L 64 20 133/87 95 04/06/18 08:00 04/06/18 08:00 04/06/18 08:00 04/06/18 10:58 04/06/18 08:00 Intake and Output: 04/06/18 04/06/18 06:59 18:59 Intake Total 1040 600 Output Total 1600 300 Balance -560 300 - Medications Medications: Current Medications Acetaminophen (Tylenol 650 Mg Supp) 650 mg MS Q6 PRN PRN Reason: fever+pain Aspirin (Aspirin Supp) 300 mg MS DAILY [facility] Last Admin: 04/06/18 12:18 Dose: 300 mg Cefepime HCl 2 gm/ Sodium (Chloride) 100 mls @ 100 mls/hr IVPB Q12H [facility]; Protocol Last Admin: 04/06/18 09:04 Dose: 100 mls/hr Insulin Aspart (Novolog) 0 unit SC Q6 [facility]; Protocol Last Admin: 04/06/18 12:16 Dose: 4 units Insulin Glargine (Lantus) 20 unit SC HS [facility] Last Admin: 04/05/18 22:26 Dose: 20 unit Losartan Potassium (Cozaar) 25 mg PEG DAILY [facility] Last Admin: 04/06/18 11:00 Dose: 25 mg Methylprednisolone (Solu-Medrol) 40 mg IVP BID [facility] Last Admin: 04/06/18 10:58 Dose: 40 mg Metoprolol Tartrate (Lopressor) 5 mg IVP Q6 PRN PRN Reason: elevated blood pressure Last Admin: 03/31/18 06:09 Dose: 5 mg Metoprolol Tartrate (Lopressor) 25 mg PEG BID [facility] Last Admin: 04/06/18 10:58 Dose: 25 mg Pantoprazole Sodium (Protonix Susp) 40 mg PO DAILY [facility] Last Admin: 04/06/18 10:58 Dose: 40 mg Rosuvastatin Calcium (Crestor) 10 mg PO [facility] Last Admin: 04/05/18 22:26 Dose: 10 mg Vitamin A (Vitamin A & D Oint Ud Foilpak) 1 ea TOP Q6 PRN PRN Reason: Dry mouth Last Admin: 04/06/18 10:58 Dose: 1 ea Vitamin A (Vitamin A & D Oint Ud Foilpak) 1 ea TOP Q8 PRN PRN Reason: Dry mouth Last Admin: 04/03/18 13:06 Dose: 1 ea - Labs Labs: 04/06/18 06:36 04/06/18 06:36 PT 12.9 SECONDS (9.7-12.2) H 03/21/18 04:41 INR 1.2 03/21/18 04:41 APTT 51 SECONDS (21-34) H 03/24/18 06:35 Assessment and Plan - Assessment and Plan (Free Text) Assessment: 67 y/o male with PMHx of pulm fibrosis, COPD, HTN and DM presented to the ED w/ worsening SOB x 2 months at 03/19. Patient coded in the ED and was in the ICU. Extubated on 03/24 after cardiac cath at [facility] the same day. Now stable on med surg. AMS - brain encephalopathy vs seizures vs anoxic brain injury - palliative care consult ordered for discuss goals of care, family meeting 11am on 03/31. Family discussed pt's desire of returning to [place] consistent with his wishes. Pending further recs. - Head CT (03/19/18): 9x11mm Right middle cerebral artery aneurysm - Head CT (03/22/18): Mild generalized volume loss. Previously noted right MCA aneurysm. - EEG ordered to r/o seizure activity 24h EEG 03/29-03/[address] Menjivar. Results: severe encepholopathy/coma state. No epileptiform discharges but it does not rule out seizure disorder. - Ativan 1mg IVP Q4H PRN for agitation. Family prefers to avoid ativan until they say he is agitated. Family denies recent agitation. - s/p PEG placement 03/26/18 - Neurology consulted, Dr. Menjivar/Pierre; help appreciated - MRI 04/06 - age related changes - swallow study 04/06: patient can have pureed thin liquids. PEG feedings also decreased after pureed diet ordered. Cardiac arrest/Respiratory failure - On admission 03/19, Initial rhythm asytole, Epi x 3 given, went into VF/VT requiring shock and Amiodarone 300mg. Elevated troponin,EKG LBBB(old). Echo reviewed with knuckle strap sewer in the ICU: preserved LV function, anteroseptal hypokinesis. Cardiac cath at [facility] on 03/24/18: non obstructive CAD -continue with HTN meds and COPD exacerbation meds: -- Lopressor 25mg po bid -- Lopressor IVP q6 prn -- Crestor 10mg po hs -- Duoneb q6 -- Solumedrol 40 mg IV q12, changed from daily Severe pulmonary fibrosis - CT chest: centrilobular emphysema and upper lobe pulmonary fibrosis - Duoneb q6 - Solumedrol IV q12 - Due to leukocytosis, ID started Vanco 1gm IV 124h and Cefepime 2gm IV Q12h on 03/26/18. ID recs to stop 04/06. - tylenol PRN for temp > 100.4 - Cabinet Finisher consulted, Dr Salazar, rec appreciated Influenza - Resolved - Influenza A + - s/p tamiflu treatment, contract precautions removed - Legionella, strep pneumo, mycoplasma negative Acute renal failure - Isolated elevated BUN. - Nephrology consulted, Dr. Jacques; recs appreciated - IVF PRN DM - Accuchecks - ISS, medium - lantus 16 units qhs - Hypoglycemic protocol HTN - Lopressor 25mg po bid - Lopressor IVP q6 prn - Continue to monitor Supportive care - DVT: heparin 5000u sc Q8, SCDs - GI: protonix 40mg iv daily - PT/OT: continue - ST: evaluation order placed 04/01 dispo: Patient unable to be d/c to rehab due to no insurance. Will need aggressive PT/OT/ST. Has yet to resume PO intake. Patient to eventually return to [facility] when recovered.
[2018-04-06] MEDS ORDERED: Bacitracin 500 Units/gm Oint Foilpak UD TOP ONE (16:15)
--- NOTE | 2018-04-06 16:43 | CP.PCM.PN ---
Subjective - Date & Time of Evaluation Date of Evaluation: 04/06/18 Time of Evaluation: 16:41 - Subjective Subjective: Neuro Follow-Up Note: Mr. Mejia was evaluated this afternoon at bedside. Daughter present at bedside. Pt stated to me today that he feels "fine." Pt has no complaints at this time. He denies h/a, dizziness, visual changes, chest pain, abd pain, n/v/d. chart reviewed. Objective - Vital Signs/Intake and Output Vital Signs (last 24 hours): Temp Pulse Resp BP Pulse Ox 97.2 F L 64 20 133/87 95 04/06/18 08:00 04/06/18 08:00 04/06/18 08:00 04/06/18 10:58 04/06/18 08:00 Intake and Output: 04/06/18 04/06/18 06:59 18:59 Intake Total 1040 690 Output Total 1600 300 Balance -560 390 - Medications Medications: Current Medications Acetaminophen (Tylenol 650 Mg Supp) 650 mg SD Q6 PRN PRN Reason: fever+pain Aspirin (Aspirin Supp) 300 mg SD DAILY [facility] Last Admin: 04/06/18 12:18 Dose: 300 mg Cefepime HCl 2 gm/ Sodium (Chloride) 100 mls @ 100 mls/hr IVPB Q12H [facility]; Protocol Last Admin: 04/06/18 09:04 Dose: 100 mls/hr Insulin Aspart (Novolog) 0 unit SC Q6 [facility]; Protocol Last Admin: 04/06/18 12:16 Dose: 4 units Insulin Glargine (Lantus) 20 unit SC HS [facility] Last Admin: 04/05/18 22:26 Dose: 20 unit Losartan Potassium (Cozaar) 25 mg PEG DAILY [facility] Last Admin: 04/06/18 11:00 Dose: 25 mg Methylprednisolone (Solu-Medrol) 40 mg IVP BID [facility] Last Admin: 04/06/18 10:58 Dose: 40 mg Metoprolol Tartrate (Lopressor) 5 mg IVP Q6 PRN PRN Reason: elevated blood pressure Last Admin: 03/31/18 06:09 Dose: 5 mg Metoprolol Tartrate (Lopressor) 25 mg PEG BID [facility] Last Admin: 04/06/18 10:58 Dose: 25 mg Pantoprazole Sodium (Protonix Susp) 40 mg PO DAILY [facility] Last Admin: 04/06/18 10:58 Dose: 40 mg Rosuvastatin Calcium (Crestor) 10 mg PO HS [facility] Last Admin: 04/05/18 22:26 Dose: 10 mg Vitamin A (Vitamin A & D Oint Ud Foilpak) 1 ea TOP Q6 PRN PRN Reason: Dry mouth Last Admin: 04/06/18 10:58 Dose: 1 ea Vitamin A (Vitamin A & D Oint Ud Foilpak) 1 ea TOP Q8 PRN PRN Reason: Dry mouth Last Admin: 04/03/18 13:06 Dose: 1 ea - Labs Labs: 04/06/18 06:36 04/06/18 06:36 PT 12.9 SECONDS (9.7-12.2) H 03/21/18 04:41 INR 1.2 03/21/18 04:41 APTT 51 SECONDS (21-34) H 03/24/18 06:35 - Constitutional Appears: Well, Non-toxic, No Acute Distress - Head Exam Head Exam: ATRAUMATIC, NORMAL INSPECTION, NORMOCEPHALIC - Eye Exam Eye Exam: EOMI, Normal appearance, PERRL Pupil Exam: NORMAL ACCOMODATION, PERRL - ENT Exam ENT Exam: Mucous Membranes Moist, Normal Exam - Neck Exam Neck Exam: Full ROM, Normal Inspection - Respiratory Exam Respiratory Exam: NORMAL BREATHING PATTERN - GI/Abdominal Exam GI & Abdominal Exam: Soft Additional comments: peg - Extremities Exam Extremities Exam: Full ROM, Normal Inspection. absent: Calf Tenderness, Pedal Edema - Back Exam Back Exam: Full ROM, NORMAL INSPECTION - Neurological Exam Neurological Exam: Alert, Awake, CN II-XII Intact, Reflexes Normal Neuro motor strength exam: Left Upper Extremity: 4, Right Upper Extremity: 4, Left Lower Extremity: 4, Right Lower Extremity: 4 Additional comments: Pt able to verbally communicate in simple terms (asks for things using 2-3 words). Stated that he felt "fine" today. Able to follow some simple commands Moves all extremities independently Strength equal b/l Sensation intact No tremors or clonus noted. - Psychiatric Exam Psychiatric exam: Normal Affect, Normal Mood - Skin Skin Exam: Normal Color Assessment and Plan (1) Cardiac arrest Assessment & Plan: Imaging reviewed: -MRI Brain (04/05/18): Age related degenerative changes are reinterated which appear age-appropriate. No definite acute intracranial findingd by standard MR criteria. Motion infarcts limit the examination across numerous sequences in this exam. -Head CT (03/26/18): Limited study secondary to suboptimal patient positioning and technique. 1. 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 Further evaluation with CT angiogram of the head and neck is recommended for further evaluation. Additional etiologies are not excluded. In addition, correlation with MRI would also be helpful if clinically indicated. 2. Sinus mucosal disease as above. -Head CT (03/19/18): 9x11mm Right middle cerebral artery aneurysm -Head CT (03/22/18): Mild generalized volume loss. Previously noted right MCA aneurysm. -EEG (03/29/18): This is an abnormal 24 hour VEEG. The presence of diffuse spindles throughout the record as well as a poorly reactive low amplitude background indicates severe encephalopathy/coma state. The absence of epileptiform discharges during the EEG recording does not rule out the diagnosis of a seizure disorder. -Continue ASA and Statin -Continue PT, OT, ST -Continue current management. -Notify neuro team of acute changes in condition. Case discussed with Dr. Jay Status: Acute
[2018-04-06] MEDS: Sodium Chloride 0.45% 1,000 ML IV SCH (22:07)
[2018-04-06] MEDS: (Lantus) Insulin Glargine, Recombinant SC SCH (22:15)
[2018-04-07 06:32] LABS: BASO % 0.3 % (0.0-2.0); HEMOGLOBIN 12.5 g/dL (12.0-18.0); LYMPH # 0.4 K/uL (1.0-4.3); LYMPH % 2.8 % (20.0-40.0); MEAN CELL VOLUME 88.7 fL (80.0-94.0); MEAN CORPUSCULAR HEMOGLOBIN 28.9 pg (27.0-31.0); MEAN CORPUSCULAR HGB CONC 32.6 g/dL (33.0-37.0); MEAN PLATELET VOLUME 12.1 fL (7.2-11.7); MONO # 0.5 K/uL (0.0-0.8); MONO % 3.6 % (0.0-10.0); NEUT # 14.2 K/uL (1.8-7.0); NEUT % 93.3 % (50.0-75.0); PLATELET COUNT 113 K/uL (130-400); RBC 4.31 Mil/uL (4.40-5.90); RED CELL DISTRIBUTION WIDTH 13.9 % (11.5-14.5); WHITE BLOOD COUNT 15.2 K/uL (4.8-10.8)
[2018-04-07 06:58] LABS: ALBUMIN 2.5 g/dL (3.5-5.0); ALT/SGPT 82 U/L (21-72); AST/SGOT 39 U/L (17-59); BLOOD UREA NITROGEN 30 mg/dL (9-20); GFR NON-AFRICAN AMERICAN > 60
[2018-04-07] MEDS: (Novolog) Insulin Aspart, Recombinant 100 u/ml 10 ml vial SC SCH ×4 (08:01→21:40)
[2018-04-07] MEDS: Cefepime 2 GM in Sodium Chloride 0.9% 100 ML IVPB SCH (08:59)
[2018-04-07 09:36] LABS: LYMPHOCYTE 2 % (20-40); MONOCYTE 3 % (0-10); NEUTROPHIL 95 % (50-75); PLATELET ESTIMATE SLIGHTLY DECREASED (NORMAL); TOTAL CELLS COUNTED 100
--- NOTE | 2018-04-07 10:05 | CP.PCM.PN ---
Subjective - Date & Time of Evaluation Date of Evaluation: 04/07/18 Time of Evaluation: 10:03 - Subjective Subjective: Medicine Progress Note for Dr. Tong Patient seen at bedside with daughter. He has been tolerating thin liquid diet and decreased PEG tube feeding form 30 ml/hour to 20. Daughter states no changes in behavior, still confused. Still AOx1. Patient has been enjoying his regular morning tea. Daughter denies aspiration or food intolerance. Objective - Vital Signs/Intake and Output Vital Signs (last 24 hours): Temp Pulse Resp BP Pulse Ox 97.3 F L 69 20 134/92 H 95 04/07/18 08:11 04/07/18 08:11 04/07/18 08:11 04/07/18 08:11 04/07/18 08:11 Intake and Output: 04/07/18 04/07/18 06:59 18:59 Intake Total 1490 Output Total 2300 Balance -810 - Medications Medications: Current Medications Acetaminophen (Tylenol 650 Mg Supp) 650 mg NM Q6 PRN PRN Reason: fever+pain Aspirin (Aspirin Supp) 300 mg NM DAILY [facility] Last Admin: 04/06/18 12:18 Dose: 300 mg Cefepime HCl 2 gm/ Sodium (Chloride) 100 mls @ 100 mls/hr IVPB Q12H [facility]; Protocol Last Admin: 04/07/18 08:59 Dose: 100 mls/hr Insulin Aspart (Novolog) 0 unit SC ACHS [facility]; Protocol Last Admin: 04/07/18 08:01 Dose: 3 units Insulin Glargine (Lantus) 20 unit SC HS [facility] Last Admin: 04/06/18 22:15 Dose: 20 unit Losartan Potassium (Cozaar) 25 mg PEG DAILY [facility] Last Admin: 04/06/18 11:00 Dose: 25 mg Methylprednisolone (Solu-Medrol) 40 mg IVP BID [facility] Last Admin: 04/06/18 17:59 Dose: 40 mg Metoprolol Tartrate (Lopressor) 5 mg IVP Q6 PRN PRN Reason: elevated blood pressure Last Admin: 03/31/18 06:09 Dose: 5 mg Metoprolol Tartrate (Lopressor) 25 mg PEG BID [facility] Last Admin: 04/06/18 18:04 Dose: 25 mg Pantoprazole Sodium (Protonix Susp) 40 mg PO DAILY [facility] Last Admin: 04/06/18 10:58 Dose: 40 mg Rosuvastatin Calcium (Crestor) 10 mg PO HS [facility] Last Admin: 04/06/18 22:15 Dose: 10 mg Vitamin A (Vitamin A & D Oint Ud Foilpak) 1 ea TOP Q6 PRN PRN Reason: Dry mouth Last Admin: 04/06/18 10:58 Dose: 1 ea Vitamin A (Vitamin A & D Oint Ud Foilpak) 1 ea TOP Q8 PRN PRN Reason: Dry mouth Last Admin: 04/03/18 13:06 Dose: 1 ea - Labs Labs: 04/07/18 06:20 04/07/18 06:20 PT 12.9 SECONDS (9.7-12.2) H 03/21/18 04:41 INR 1.2 03/21/18 04:41 APTT 51 SECONDS (21-34) H 03/24/18 06:35 Assessment and Plan - Assessment and Plan (Free Text) Assessment: 67 y/o male with PMHx of pulm fibrosis, COPD, HTN and DM presented to the ED w/ worsening SOB x 2 months at 03/19. Patient coded in the ED and was in the ICU. Extubated on 03/24 after cardiac cath at [facility] the same day. Now stable on med surg. AMS - brain encephalopathy vs seizures vs anoxic brain injury - palliative care consult ordered for discuss goals of care, family meeting 11am on 03/31. Family discussed pt's desire of returning to [place] consistent with his wishes. Pending further recs. - Head CT (03/19/18): 9x11mm Right middle cerebral artery aneurysm - Head CT (03/22/18): Mild generalized volume loss. Previously noted right MCA aneurysm. - EEG ordered to r/o seizure activity 24h EEG 03/29-03/[address] Menjivar. Results: severe encepholopathy/coma state. No epileptiform discharges but it luke s not rule out seizure disorder. - Ativan 1mg IVP Q4H PRN for agitation. Family prefers to avoid ativan until they say he is agitated. Family denies recent agitation. - s/p PEG placement 03/26/18 - Neurology consulted, Dr. Menjivar/Pierre; help appreciated - MRI 04/06 - age related changes - swallow study 04/06: patient can have pureed thin liquids. PEG feedings also decreased after pureed diet ordered. Patient now tolerating thin liquids per daughter. Cardiac arrest/Respiratory failure - On admission 03/19, Initial rhythm asytole, Epi x 3 given, went into VF/VT requiring shock and Amiodarone 300mg. Elevated troponin,EKG LBBB(old). Echo reviewed with manager fraud in the ICU: preserved LV function, anteroseptal hypokinesis. Cardiac cath at [facility] on 03/24/18: non obstructive CAD -continue with HTN meds and COPD exacerbation meds: -- Lopressor 25mg po bid -- Lopressor IVP q6 prn -- Crestor 10mg po hs -- Duoneb q6 -- Solumedrol 40 mg IV q12 Severe pulmonary fibrosis - CT chest: centrilobular emphysema and upper lobe pulmonary fibrosis - Duoneb q6 - Solumedrol IV q12 - Due to leukocytosis, ID started Vanco 1gm IV 124h and Cefepime 2gm IV Q12h on 03/26/18. ID recs to stop 04/06. - tylenol PRN for temp > 100.4 - Equipment Hire Manager consulted, Dr Salazar, rec appreciated Influenza - Resolved - Influenza A + - s/p tamiflu treatment, contract precautions removed - Legionella, strep pneumo, mycoplasma negative Acute renal failure - Isolated elevated BUN. - Nephrology consulted, Dr. Jacques; recs appreciated - IVF PRN DM - Accuchecks - ISS, medium - lantus 16 units qhs - Hypoglycemic protocol HTN - Lopressor 25mg po bid - Lopressor IVP q6 prn - Continue to monitor Supportive care - DVT: heparin 5000u sc Q8, SCDs - GI: protonix 40mg iv daily - PT/OT: continue dispo: Patient unable to be d/c to rehab due to no insurance. Will need aggressive PT/OT/ST. Has yet to resume PO intake. Patient to eventually return to [facility] when recovered.
[2018-04-07] MEDS: Pantoprazole 40 mg Susp UD PO SCH (10:13)
[2018-04-07] MEDS: MethylPREDNISolone 40 mg Vial IVP SCH (10:13)
[2018-04-07] MEDS: (Lantus) Insulin Glargine, Recombinant SC SCH (21:43)
[2018-04-08 07:42] LABS: BASO % 0.1 % (0.0-2.0); EOS # 0.1 K/uL (0.0-0.7); EOS % 0.9 % (0.0-4.0); HEMOGLOBIN 13.7 g/dL (12.0-18.0); LYMPH # 1.1 K/uL (1.0-4.3); LYMPH % 8.8 % (20.0-40.0); MEAN CELL VOLUME 89.8 fL (80.0-94.0); MEAN CORPUSCULAR HEMOGLOBIN 28.3 pg (27.0-31.0); MEAN CORPUSCULAR HGB CONC 31.5 g/dL (33.0-37.0); MEAN PLATELET VOLUME 11.5 fL (7.2-11.7); MONO # 0.4 K/uL (0.0-0.8); MONO % 3.1 % (0.0-10.0); NEUT # 11.2 K/uL (1.8-7.0); NEUT % 87.1 % (50.0-75.0); PLATELET COUNT 148 K/uL (130-400); RBC 4.83 Mil/uL (4.40-5.90); RED CELL DISTRIBUTION WIDTH 13.8 % (11.5-14.5); WHITE BLOOD COUNT 12.8 K/uL (4.8-10.8)
[2018-04-08 07:56] LABS: ALBUMIN 2.8 g/dL (3.5-5.0); ALT/SGPT 82 U/L (21-72); AST/SGOT 35 U/L (17-59); BLOOD UREA NITROGEN 25 mg/dL (9-20); CALCIUM 8.4 mg/dl (8.6-10.4); GFR NON-AFRICAN AMERICAN > 60
[2018-04-08] MEDS: (Novolog) Insulin Aspart, Recombinant 100 u/ml 10 ml vial SC SCH ×4 (08:01→21:52)
[2018-04-08 09:48] LABS: BANDS 5 % (0-2); EOSINOPHIL 1 % (0-4); LARGE PLATELETS PRESENT; LYMPHOCYTE 8 % (20-40); MONOCYTE 5 % (0-10); NEUTROPHIL 81 % (50-75); OVALOCYTES SLIGHT; PLATELET ESTIMATE NORMAL (NORMAL); TOTAL CELLS COUNTED 100
[2018-04-08] MEDS: Pantoprazole 40 mg Susp UD PO SCH (10:10)
--- NOTE | 2018-04-08 15:30 | CP.PCM.PN ---
<Samantha Joe - Last Filed: 04/08/18 15:30> Subjective - Date & Time of Evaluation Date of Evaluation: 04/08/18 Time of Evaluation: 15:45 - Subjective Subjective: Medicine Progress Note Patient seen and examined at bedside with and daughter. Daughter states that sometimes patient knows who they are and sometimes not. Patient also pulled off PEG last night and flannery cath placed in the lumen to prevent closing. Patient no longer getting PEG feeds ever since, just his pureed diet, which he has been tolerating. Due to patient condition ROS unable to be obtained. Objective - Vital Signs/Intake and Output Vital Signs (last 24 hours): Temp Pulse Resp BP Pulse Ox 97 F L 84 20 126/70 95 04/08/18 08:06 04/08/18 08:06 04/08/18 08:06 04/08/18 10:11 04/08/18 08:06 Intake and Output: 04/08/18 04/08/18 06:59 18:59 Intake Total 480 Output Total 600 Balance -120 - Medications Medications: Current Medications Acetaminophen (Tylenol 650 Mg Supp) 650 mg [place] Q6 PRN PRN Reason: fever+pain Aspirin (Ecotrin) 81 mg PO DAILY [facility] Last Admin: 04/08/18 10:11 Dose: 81 mg Insulin Aspart (Novolog) 0 unit SC [facility]; Protocol Last Admin: 04/08/18 12:08 Dose: 4 units Insulin Glargine (Lantus) 20 unit SC [facility] Last Admin: 04/07/18 21:43 Dose: 20 unit Losartan Potassium (Cozaar) 25 mg PO DAILY [facility] Last Admin: 04/08/18 10:10 Dose: 25 mg Metoprolol Tartrate (Lopressor) 5 mg IVP Q6 PRN PRN Reason: elevated blood pressure Last Admin: 03/31/18 06:09 Dose: 5 mg Metoprolol Tartrate (Lopressor) 25 mg PO BID [facility] Last Admin: 04/08/18 10:11 Dose: 25 mg Pantoprazole Sodium (Protonix Susp) 40 mg PO DAILY [facility] Last Admin: 04/08/18 10:10 Dose: 40 mg Prednisone (Prednisone Tab) 20 mg PO DAILY [facility] Stop: 04/12/18 10:01 Last Admin: 04/08/18 10:11 Dose: 20 mg Prednisone (Prednisone Tab) 10 mg PO DAILY [facility] Stop: 04/17/18 10:01 Rosuvastatin Calcium (Crestor) 10 mg PO HS [facility] Last Admin: 04/07/18 21:42 Dose: 10 mg Vitamin A (Vitamin A & D Oint Ud Foilpak) 1 ea TOP Q6 PRN PRN Reason: Dry mouth Last Admin: 04/06/18 10:58 Dose: 1 ea Vitamin A (Vitamin A & D Oint Ud Foilpak) 1 ea TOP Q8 PRN PRN Reason: Dry mouth Last Admin: 04/03/18 13:06 Dose: 1 ea - Labs Labs: 04/08/18 07:34 04/08/18 07:34 PT 12.9 SECONDS (9.7-12.2) H 03/21/18 04:41 INR 1.2 03/21/18 04:41 APTT 51 SECONDS (21-34) H 03/24/18 06:35 - Constitutional Appears: Well, Non-toxic - Head Exam Head Exam: ATRAUMATIC, NORMAL INSPECTION, NORMOCEPHALIC - Eye Exam Eye Exam: EOMI, Normal appearance - ENT Exam ENT Exam: Normal Exam - Neck Exam Neck Exam: Normal Inspection - Respiratory Exam Respiratory Exam: Clear to Ausculation Bilateral, NORMAL BREATHING PATTERN - Cardiovascular Exam Cardiovascular Exam: REGULAR RHYTHM - GI/Abdominal Exam GI & Abdominal Exam: Soft, Normal Bowel Sounds - Extremities Exam Extremities Exam: Normal Capillary Refill, Normal Inspection. absent: Calf Tenderness - Neurological Exam Neurological Exam: Alert, Awake. absent: Oriented x3 (AAOx1) - Psychiatric Exam Psychiatric exam: Normal Affect, Normal Mood - Skin Skin Exam: Dry, Intact, Normal Color, Warm Assessment and Plan - Assessment and Plan (Free Text) Assessment: 67 y/o male with PMHx of pulm fibrosis, COPD, HTN and DM presented to the ED w/ worsening SOB x 2 months at 03/19. Patient coded in the ED and was in the ICU. Extubated on 03/24 after cardiac cath at [facility] the same day. Now stable on med surg, pending placement while getting PT/OT, and nutrition eval for PO intake before PEG d/c. AMS - current baseline: AAOx1 -brain encephalopathy vs seizures vs anoxic brain injury - palliative care consult ordered for discuss goals of care, family meeting 11am on 03/31. Family discussed pt's desire of returning to [facility] consistent with his wishes. - Head CT (03/19/18): 9x11mm Right middle cerebral artery aneurysm - Head CT (03/22/18): Mild generalized volume loss. Previously noted right MCA aneurysm. - MRI 04/06 - age related changes - EEG ordered to r/o seizure activity 24h EEG 03/29-03/[address] Menjivar. Results: severe encepholopathy/coma state. No epileptiform discharges but it does not rule out seizure disorder. - Ativan 1mg IVP Q4H PRN for agitation. Family prefers to avoid ativan until they say he is agitated. Family denies recent agitation. - s/p PEG placement 03/26/18 - Patient removed PEG by accident 04/07 during hourly shift manager per RN. - swallow study 04/06: patient can have pureed thin liquids. He is tolerating. --nutrition consult placed to assess whether or not his PO nutrition is adequate enough to officially d/c PEG. For now, flannery FR 16 placed in the lumen and balloon inflated. I spoke to general surgery residents. They have advised me that they do not need to document removal of the PEG and recommended nutrition consult to ensure adequate PO nutrition prior to the flannery FR 16 removal. The lumen will close on its own. - Neurology consulted, Dr. Menjivar/Pierre; help appreciated Cardiac arrest/Respiratory failure - s/p code blue - On admission 03/19, Initial rhythm asytole, Epi x 3 given, went into VF/VT requiring shock and Amiodarone 300mg. Elevated troponin,EKG LBBB(old). Echo reviewed with battery plate remover in the ICU: preserved LV function, anteroseptal hypokinesis. Cardiac cath at [facility] on 03/24/18: non obstructive CAD -ASA, crestor - per Dr. Gonsalves/Dr. Pizarro group initially consulted -continue with HTN meds and COPD exacerbation meds: -- Lopressor 25mg po bid -- Lopressor IVP q6 prn -- Crestor 10mg po hs -- Duoneb q6 -- Solumedrol 40 mg IV q12 Severe pulmonary fibrosis - CT chest: centrilobular emphysema and upper lobe pulmonary fibrosis - Duoneb q6 - Solumedrol IV q12 -> changed to prednisone 20 mg 04/08 to 04/12, then prednisone 10 mg 04/13 - 2/2 - maxipime d/efra 04/07 - tylenol PRN for temp > 100.4 Influenza - Resolved - Influenza A + - s/p tamiflu treatment, contract precautions removed - Legionella, strep pneumo, mycoplasma negative DM - Accuchecks - ISS, medium - lantus 20 units qhs - Hypoglycemic protocol HTN - Lopressor 25mg po bid - Lopressor IVP q6 prn - Continue to monitor Supportive care - DVT: heparin 5000u sc Q8, SCDs - GI: protonix 40mg iv daily - PT/OT: continue <Mat De Luna - Last Filed: 04/14/18 02:36> Objective - Vital Signs/Intake and Output Vital Signs (last 24 hours): Temp Pulse Resp BP Pulse Ox 97.4 F L 87 20 128/86 97 04/14/18 00:00 04/14/18 00:00 04/14/18 00:00 04/14/18 00:00 04/14/18 00:00 Intake and Output: 04/13/18 04/14/18 18:59 06:59 Intake Total 200 500 Balance 200 500 - Medications Medications: Current Medications Acetaminophen (Tylenol 650 Mg Supp) 650 mg [place] Q6 PRN PRN Reason: fever+pain Aspirin (Ecotrin) 81 mg PO DAILY [facility] Last Admin: 04/13/18 09:57 Dose: 81 mg Heparin Sodium (Porcine) (Heparin) 5,000 units SC Q8 [facility] Last Admin: 04/13/18 21:37 Dose: 5,000 units Insulin Aspart (Novolog) 0 unit SC [facility]; Protocol Last Admin: 04/13/18 21:40 Dose: 4 units Insulin Glargine (Lantus) 20 unit SC HS [facility] Last Admin: 04/13/18 21:41 Dose: 20 unit Losartan Potassium (Cozaar) 25 mg PO DAILY [facility] Last Admin: 04/13/18 11:00 Dose: 25 mg Metoprolol Tartrate (Lopressor) 5 mg IVP Q6 PRN PRN Reason: elevated blood pressure Last Admin: 03/31/18 06:09 Dose: 5 mg Metoprolol Tartrate (Lopressor) 25 mg PO BID [facility] Last Admin: 04/13/18 17:33 Dose: 25 mg Pantoprazole Sodium (Protonix Susp) 40 mg PO DAILY [facility] Last Admin: 04/13/18 09:57 Dose: 40 mg Prednisone (Prednisone Tab) 10 mg PO DAILY [facility] Stop: 04/17/18 10:01 Last Admin: 04/13/18 09:57 Dose: 10 mg Rosuvastatin Calcium (Crestor) 10 mg PO HS [facility] Last Admin: 04/13/18 21:36 Dose: 10 mg Zolpidem Tartrate (Ambien) 5 mg PO HS PRN PRN Reason: Insomnia Last Admin: 04/12/18 22:13 Dose: 5 mg - Labs Labs: 04/13/18 11:28 04/13/18 11:28 PT 12.9 SECONDS (9.7-12.2) H 03/21/18 04:41 INR 1.2 03/21/18 04:41 APTT 51 SECONDS (21-34) H 03/24/18 06:35 Attending/Attestation - Attestation I have personally seen and examined this patient.: Yes I have fully participated in the care of the patient.: Yes I have reviewed all pertinent clinical information, including history, physical exam and plan: Yes Notes (Text): 04/14/18 02:35 04/14/18 02:29 Anoxic brain injury Cardiac arrest Severe pulm fibrosis DM HTN PT/OT/ST on board Neuro on board swallow eval continue feeding via PEG tube c/w Beta karen Family in the process of arranging transport back to [facility]
[2018-04-08] MEDS: (Lantus) Insulin Glargine, Recombinant SC SCH (21:46)
[2018-04-09 08:08] LABS: BASO % 0.1 % (0.0-2.0); EOS # 0.2 K/uL (0.0-0.7); EOS % 1.1 % (0.0-4.0); HEMOGLOBIN 13.6 g/dL (12.0-18.0); LYMPH # 0.9 K/uL (1.0-4.3); MEAN CELL VOLUME 89.3 fL (80.0-94.0); MEAN CORPUSCULAR HEMOGLOBIN 28.8 pg (27.0-31.0); MEAN CORPUSCULAR HGB CONC 32.2 g/dL (33.0-37.0); MEAN PLATELET VOLUME 11.4 fL (7.2-11.7); MONO # 0.4 K/uL (0.0-0.8); MONO % 2.5 % (0.0-10.0); NEUT # 13.5 K/uL (1.8-7.0); NEUT % 90.3 % (50.0-75.0); RBC 4.72 Mil/uL (4.40-5.90); RED CELL DISTRIBUTION WIDTH 14.2 % (11.5-14.5)
[2018-04-09 08:11] LABS: PLATELET COUNT 115 K/uL (130-400)
[2018-04-09 08:17] LABS: ALBUMIN 2.7 g/dL (3.5-5.0); ALT/SGPT 67 U/L (21-72); AST/SGOT 41 U/L (17-59); BLOOD UREA NITROGEN 31 mg/dL (9-20); CALCIUM 8.4 mg/dl (8.6-10.4); GFR NON-AFRICAN AMERICAN > 60
[2018-04-09] MEDS: (Novolog) Insulin Aspart, Recombinant 100 u/ml 10 ml vial SC SCH ×4 (08:29→22:04)
[2018-04-09 09:44] LABS: EOSINOPHIL 1 % (0-4); LYMPHOCYTE 7 % (20-40); MONOCYTE 3 % (0-10); NEUTROPHIL 89 % (50-75); TOTAL CELLS COUNTED 100
[2018-04-09 09:45] LABS: PLATELET ESTIMATE SLIGHTLY DECREASED (NORMAL)
[2018-04-09] MEDS: Pantoprazole 40 mg Susp UD PO SCH (10:22)
--- NOTE | 2018-04-09 14:43 | CP.PCM.PN ---
Subjective - Date & Time of Evaluation Date of Evaluation: 04/09/18 Time of Evaluation: 14:41 - Subjective Subjective: Neuro Follow-Up Note: Mr. Mejia was evaluated this afternoon at bedside. Daughter and present at bedside. Pt states that he feels good today. Per daughter he is sleepy but overall he is doing well. Pt has no complaints at this time. He denies h/a, dizziness, visual changes, chest pain, abd pain, n/v/d. chart reviewed. Objective - Vital Signs/Intake and Output Vital Signs (last 24 hours): Temp Pulse Resp BP Pulse Ox 97.2 F L 80 20 142/97 H 95 04/09/18 07:00 04/09/18 07:00 04/09/18 07:00 04/09/18 10:22 04/09/18 07:00 Intake and Output: 04/09/18 04/09/18 06:59 18:59 Intake Total 600 Balance 600 - Medications Medications: Current Medications Acetaminophen (Tylenol 650 Mg Supp) 650 mg [place] Q6 PRN PRN Reason: fever+pain Aspirin (Ecotrin) 81 mg PO DAILY [facility] Last Admin: 04/09/18 10:22 Dose: 81 mg Insulin Aspart (Novolog) 0 unit SC [facility]; Protocol Last Admin: 04/09/18 12:29 Dose: 2 units Insulin Glargine (Lantus) 20 unit SC [facility] Last Admin: 04/08/18 21:46 Dose: 20 unit Losartan Potassium (Cozaar) 25 mg PO DAILY [facility] Last Admin: 04/09/18 10:23 Dose: 25 mg Metoprolol Tartrate (Lopressor) 5 mg IVP Q6 PRN PRN Reason: elevated blood pressure Last Admin: 03/31/18 06:09 Dose: 5 mg Metoprolol Tartrate (Lopressor) 25 mg PO BID [facility] Last Admin: 04/09/18 10:22 Dose: 25 mg Pantoprazole Sodium (Protonix Susp) 40 mg PO DAILY [facility] Last Admin: 04/09/18 10:22 Dose: 40 mg Prednisone (Prednisone Tab) 20 mg PO DAILY [facility] Stop: 04/12/18 10:01 Last Admin: 04/09/18 10:22 Dose: 20 mg Prednisone (Prednisone Tab) 10 mg PO DAILY [facility] Stop: 04/17/18 10:01 Rosuvastatin Calcium (Crestor) 10 mg PO HS [facility] Last Admin: 04/08/18 21:46 Dose: 10 mg Vitamin A (Vitamin A & D Oint Ud Foilpak) 1 ea TOP Q6 PRN PRN Reason: Dry mouth Last Admin: 04/06/18 10:58 Dose: 1 ea Vitamin A (Vitamin A & D Oint Ud Foilpak) 1 ea TOP Q8 PRN PRN Reason: Dry mouth Last Admin: 04/03/18 13:06 Dose: 1 ea - Labs Labs: 04/09/18 07:51 04/09/18 07:51 PT 12.9 SECONDS (9.7-12.2) H 03/21/18 04:41 INR 1.2 03/21/18 04:41 APTT 51 SECONDS (21-34) H 03/24/18 06:35 - Constitutional Appears: Well, Non-toxic, No Acute Distress - Head Exam Head Exam: ATRAUMATIC, NORMAL INSPECTION, NORMOCEPHALIC - Eye Exam Eye Exam: EOMI, Normal appearance Pupil Exam: NORMAL ACCOMODATION, PERRL - ENT Exam ENT Exam: Mucous Membranes Moist - Neck Exam Neck Exam: Full ROM, Normal Inspection - Respiratory Exam Respiratory Exam: NORMAL BREATHING PATTERN - GI/Abdominal Exam GI & Abdominal Exam: Soft Additional comments: peg - Extremities Exam Extremities Exam: Full ROM. absent: Calf Tenderness, Pedal Edema - Neurological Exam Neurological Exam: Alert, Awake, Reflexes Normal Neuro motor strength exam: Left Upper Extremity: 5, Right Upper Extremity: 5, Left Lower Extremity: 5, Right Lower Extremity: 5 Additional comments: Pt able to verbally communicate in simple terms (asks for things using 2-3 words). Able to follow some simple commands Moves all extremities independently Strength equal b/l Sensation intact No tremors or clonus noted. - Psychiatric Exam Psychiatric exam: Normal Mood - Skin Skin Exam: Normal Color Assessment and Plan (1) Cardiac arrest Assessment & Plan: Imaging reviewed: -MRI Brain (04/05/18): Age related degenerative changes are reinterated which appear age-appropriate. No definite acute intracranial findingd by standard MR criteria. Motion infarcts limit the examination across numerous sequences in this exam. -Head CT (03/26/18): Limited study secondary to suboptimal patient positioning and technique. 1. 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 Further evaluation with CT angiogram of the head and neck is recommended for further evaluation. Additional etiologies are not excluded. In addition, correlation with MRI would also be helpful if clinically indicated. 2. Sinus mucosal disease as above. -Head CT (03/19/18): 9x11mm Right middle cerebral artery aneurysm -Head CT (03/22/18): Mild generalized volume loss. Previously noted right MCA a neurysm. -EEG (03/29/18): This is an abnormal 24 hour VEEG. The presence of diffuse spindles throughout the record as well as a poorly reactive low amplitude background indicates severe encephalopathy/coma state. The absence of epileptiform discharges during the EEG recording does not rule out the diagnosis of a seizure disorder. -Continue ASA and Statin -Continue PT, OT, ST -Continue current management. -Notify neuro team of acute changes in condition. Case discussed with Dr. Menjivar Status: Acute
--- NOTE | 2018-04-09 15:07 | CP.PCM.PN ---
<Samantha Joe - Last Filed: 04/09/18 15:04> Subjective - Date & Time of Evaluation Date of Evaluation: 04/09/18 Time of Evaluation: 15:04 - Subjective Subjective: Medicine Progress Note Patient seen and examined with daughter this morning. Patient's daughter is interested in having nutrition evaluate for his PO intake as she would like the PEG tube to be removed YANNA. I expressed agreement and asked RN to call nutrition although I placed consult yesterday. Patient's daughter stated later in rounds this afternoon that he has been c/o jaw pain. She also requests sleep medications PRN due to irregular sleep cycles at times. ROS unable to be obtained due to patient condition. Objective - Vital Signs/Intake and Output Vital Signs (last 24 hours): Temp Pulse Resp BP Pulse Ox 97.2 F L 80 20 142/97 H 95 04/09/18 07:00 04/09/18 07:00 04/09/18 07:00 04/09/18 10:22 04/09/18 07:00 Intake and Output: 04/09/18 04/09/18 06:59 18:59 Intake Total 600 Balance 600 - Medications Medications: Current Medications Acetaminophen (Tylenol 650 Mg Supp) 650 mg [place] Q6 PRN PRN Reason: fever+pain Aspirin (Ecotrin) 81 mg PO DAILY [facility] Last Admin: 04/09/18 10:22 Dose: 81 mg Insulin Aspart (Novolog) 0 unit SC [facility]; Protocol Last Admin: 04/09/18 12:29 Dose: 2 units Insulin Glargine (Lantus) 20 unit SC HS [facility] Last Admin: 04/08/18 21:46 Dose: 20 unit Losartan Potassium (Cozaar) 25 mg PO DAILY [facility] Last Admin: 04/09/18 10:23 Dose: 25 mg Metoprolol Tartrate (Lopressor) 5 mg IVP Q6 PRN PRN Reason: elevated blood pressure Last Admin: 03/31/18 06:09 Dose: 5 mg Metoprolol Tartrate (Lopressor) 25 mg PO BID [facility] Last Admin: 04/09/18 10:22 Dose: 25 mg Pantoprazole Sodium (Protonix Susp) 40 mg PO DAILY [facility] Last Admin: 04/09/18 10:22 Dose: 40 mg Prednisone (Prednisone Tab) 20 mg PO DAILY [facility] Stop: 04/12/18 10:01 Last Admin: 04/09/18 10:22 Dose: 20 mg Prednisone (Prednisone Tab) 10 mg PO DAILY [facility] Stop: 04/17/18 10:01 Rosuvastatin Calcium (Crestor) 10 mg PO HS [facility] Last Admin: 04/08/18 21:46 Dose: 10 mg Vitamin A (Vitamin A & D Oint Ud Foilpak) 1 ea TOP Q6 PRN PRN Reason: Dry mouth Last Admin: 04/06/18 10:58 Dose: 1 ea Vitamin A (Vitamin A & D Oint Ud Foilpak) 1 ea TOP Q8 PRN PRN Reason: Dry mouth Last Admin: 04/03/18 13:06 Dose: 1 ea Zolpidem Tartrate (Ambien) 5 mg PO HS PRN PRN Reason: Insomnia - Labs Labs: 04/09/18 07:51 04/09/18 07:51 PT 12.9 SECONDS (9.7-12.2) H 03/21/18 04:41 INR 1.2 03/21/18 04:41 APTT 51 SECONDS (21-34) H 03/24/18 06:35 - Constitutional Appears: Well, Non-toxic - Head Exam Head Exam: ATRAUMATIC, NORMAL INSPECTION - Eye Exam Eye Exam: EOMI, Normal appearance - ENT Exam ENT Exam: Normal Exam, TM's Normal Bilaterally - Respiratory Exam Respiratory Exam: Clear to Ausculation Bilateral, NORMAL BREATHING PATTERN - Cardiovascular Exam Cardiovascular Exam: REGULAR RHYTHM - GI/Abdominal Exam GI & Abdominal Exam: Soft, Normal Bowel Sounds - Extremities Exam Extremities Exam: Normal Capillary Refill, Normal Inspection. absent: Calf Tenderness - Back Exam Back Exam: NORMAL INSPECTION - Neurological Exam Neurological Exam: Alert, Awake. absent: Oriented x3 (AAOx1) - Psychiatric Exam Psychiatric exam: Normal Affect, Normal Mood - Skin Skin Exam: Dry, Intact, Normal Color, Warm Assessment and Plan - Assessment and Plan (Free Text) Assessment: 67 y/o male with PMHx of pulm fibrosis, COPD, HTN and DM presented to the ED w/ worsening SOB x 2 months at 03/19. Patient coded in the ED and was in the ICU. Ex tubated on 03/24 after cardiac cath at [facility] the same day. Now stable on med surg, pending placement while getting PT/OT, and nutrition eval for PO intake before PEG d/c. AMS - current baseline: AAOx1 -brain encephalopathy vs seizures vs anoxic brain injury - palliative care consult ordered for discuss goals of care, family meeting 11am on 03/31. Family discussed pt's desire of returning to [place] consistent with his wishes. - Head CT (03/19/18): 9x11mm Right middle cerebral artery aneurysm - Head CT (03/22/18): Mild generalized volume loss. Previously noted right MCA aneurysm. - MRI 04/06 - age related changes - EEG ordered to r/o seizure activity 24h EEG 03/29-03/[address] Menjivar. Results: severe encepholopathy/coma state. No epileptiform discharges but it does not rule out seizure disorder. - Ativan 1mg IVP Q4H PRN for agitation. Family prefers to avoid ativan until they say he is agitated. Family denies recent agitation. - s/p PEG placement 03/26/18 - Patient removed PEG by accident 04/07 during mini shifter per RN. - swallow study 04/06: patient can have pureed thin liquids. He is tolerating. --nutrition consult placed to assess whether or not his PO nutrition is adequate enough to officially d/c PEG. For now, flannery FR 16 placed in the lumen and balloon inflated. I spoke to general surgery residents. They have advised me that they do not need to document removal of the PEG and recommended nutrition consult to ensure adequate PO nutrition prior to the flannery FR 16 removal. The lumen will close on its own. -04/09: nutrition came for evaluation of PO intake. Per pt's daughter, he had poor PO intake this morning and prefers his family's food. Patient also on glucerna supplement total of 660 calories per day with that. Nutrition will return for evaluation; spoke with the directly on the phone. - Neurology consulted, Dr. Menjivar/Pierre; help appreciated Cardiac arrest/Respiratory failure - s/p code blue - On admission 03/19, Initial rhythm asytole, Epi x 3 given, went into VF/VT requiring shock and Amiodarone 300mg. Elevated troponin,EKG LBBB(old). Echo reviewed with conservation of resources commissioner in the ICU: preserved LV function, anteroseptal hypokinesis. Cardiac cath at [facility] [place] on 03/24/18: non obstructive CAD -ASA, crestor - per Dr. Gonsalves/Dr. Pizarro group initially consulted -continue with HTN meds and COPD exacerbation meds: -- Lopressor 25mg po bid -- Lopressor IVP q6 prn -- Crestor 10mg po hs -- Duoneb q6 -- Solumedrol 40 mg IV q12 Severe pulmonary fibrosis - CT chest: centrilobular emphysema and upper lobe pulmonary fibrosis - Duoneb q6 - Solumedrol IV q12 -> changed to prednisone 20 mg 04/08 to 04/12, then prednisone 10 mg 04/13 - 2 - maxipime d/efra 04/07 - tylenol PRN for temp > 100.4 Influenza - Resolved - Influenza A + - s/p tamiflu treatment, contract precautions removed - Legionella, strep pneumo, mycoplasma negative DM - Accuchecks - ISS, medium - lantus 20 units qhs - Hypoglycemic protocol HTN - Lopressor 25mg po bid - Lopressor IVP q6 prn - Continue to monitor Supportive care - DVT: heparin 5000u sc Q8, SCDs - GI: protonix 40mg iv daily - PT/OT: continue <Mat De Luna - Last Filed: 04/14/18 02:35> Objective - Vital Signs/Intake and Output Vital Signs (last 24 hours): Temp Pulse Resp BP Pulse Ox 97.4 F L 87 20 128/86 97 04/14/18 00:00 04/14/18 00:00 04/14/18 00:00 04/14/18 00:00 04/14/18 00:00 Intake and Output: 04/13/18 04/14/18 18:59 06:59 Intake Total 200 500 Balance 200 500 - Medications Medications: Current Medications Acetaminophen (Tylenol 650 Mg Supp) 650 mg [place] Q6 PRN PRN Reason: fever+pain Aspirin (Ecotrin) 81 mg PO DAILY [facility] Last Admin: 04/13/18 09:57 Dose: 81 mg Heparin Sodium (Porcine) (Heparin) 5,000 units SC Q8 [facility] Last Admin: 04/13/18 21:37 Dose: 5,000 units Insulin Aspart (Novolog) 0 unit SC [facility]; Protocol Last Admin: 04/13/18 21:40 Dose: 4 units Insulin Glargine (Lantus) 20 unit SC HS [facility] Last Admin: 04/13/18 21:41 Dose: 20 unit Losartan Potassium (Cozaar) 25 mg PO DAILY [facility] Last Admin: 04/13/18 11:00 Dose: 25 mg Metoprolol Tartrate (Lopressor) 5 mg IVP Q6 PRN PRN Reason: elevated blood pressure Last Admin: 03/31/18 06:09 Dose: 5 mg Metoprolol Tartrate (Lopressor) 25 mg PO BID [facility] Last Admin: 04/13/18 17:33 Dose: 25 mg Pantoprazole Sodium (Protonix Susp) 40 mg PO DAILY [facility] Last Admin: 04/13/18 09:57 Dose: 40 mg Prednisone (Prednisone Tab) 10 mg PO DAILY [facility] Stop: 04/17/18 10:01 Last Admin: 04/13/18 09:57 Dose: 10 mg Rosuvastatin Calcium (Crestor) 10 mg PO [facility] Last Admin: 04/13/18 21:36 Dose: 10 mg Zolpidem Tartrate (Ambien) 5 mg PO HS PRN PRN Reason: Insomnia Last Admin: 04/12/18 22:13 Dose: 5 mg - Labs Labs: 04/13/18 11:28 04/13/18 11:28 PT 12.9 SECONDS (9.7-12.2) H 03/21/18 04:41 INR 1.2 03/21/18 04:41 APTT 51 SECONDS (21-34) H 03/24/18 06:35 Attending/Attestation - Attestation I have personally seen and examined this patient.: Yes I have fully participated in the care of the patient.: Yes I have reviewed all pertinent clinical information, including history, physical exam and plan: Yes Notes (Text): 04/14/18 02:29 Anoxic brain injury Cardiac arrest Severe pulm fibrosis DM HTN PT/OT/ST on board Neuro on board Pt passed swallow eval, pt to be assessed my nutrition, if pt able to take ad equate calorie PO then will DC PEG tube c/w Beta karen Family in the process of arranging transport back to [facility]
[2018-04-09] MEDS: (Lantus) Insulin Glargine, Recombinant SC SCH (22:03)
--- NOTE | 2018-04-10 05:24 | CP.PCM.PN ---
Subjective - Date & Time of Evaluation Date of Evaluation: 04/10/18 Time of Evaluation: 06:04 - Subjective Subjective: Patient examined at bedside with family in room. Patient is sleepy, but easily arousable. ROS unobtainable 2/2 to patient status. Patient is able to nod "no" when I ask him to keep his eyes open. Family reports no complaint Objective - Vital Signs/Intake and Output Vital Signs (last 24 hours): Temp Pulse Resp BP Pulse Ox 97.3 F L 76 20 134/94 H 96 04/10/18 00:00 04/10/18 00:00 04/10/18 00:00 04/10/18 00:00 04/10/18 00:00 Intake and Output: 04/09/18 04/10/18 18:59 06:59 Intake Total 400 Balance 400 - Medications Medications: Current Medications Acetaminophen (Tylenol 650 Mg Supp) 650 mg [place] Q6 PRN PRN Reason: fever+pain Aspirin (Ecotrin) 81 mg PO DAILY [facility] Last Admin: 04/09/18 10:22 Dose: 81 mg Insulin Aspart (Novolog) 0 unit SC [facility]; Protocol Last Admin: 04/09/18 22:04 Dose: Not Given Insulin Glargine (Lantus) 20 unit SC [facility] Last Admin: 04/09/18 22:03 Dose: 20 unit Losartan Potassium (Cozaar) 25 mg PO DAILY [facility] Last Admin: 04/09/18 10:23 Dose: 25 mg Metoprolol Tartrate (Lopressor) 5 mg IVP Q6 PRN PRN Reason: elevated blood pressure Last Admin: 03/31/18 06:09 Dose: 5 mg Metoprolol Tartrate (Lopressor) 25 mg PO BID [facility] Last Admin: 04/09/18 17:36 Dose: 25 mg Pantoprazole Sodium (Protonix Susp) 40 mg PO DAILY [facility] Last Admin: 04/09/18 10:22 Dose: 40 mg Prednisone (Prednisone Tab) 20 mg PO DAILY [facility] Stop: 04/12/18 10:01 Last Admin: 04/09/18 10:22 Dose: 20 mg Prednisone (Prednisone Tab) 10 mg PO DAILY [facility] Stop: 04/17/18 10:01 Rosuvastatin Calcium (Crestor) 10 mg PO [facility] Last Admin: 04/09/18 21:53 Dose: 10 mg Vitamin A (Vitamin A & D Oint Ud Foilpak) 1 ea TOP Q6 PRN PRN Reason: Dry mouth Last Admin: 04/06/18 10:58 Dose: 1 ea Vitamin A (Vitamin A & D Oint Ud Foilpak) 1 ea TOP Q8 PRN PRN Reason: Dry mouth Last Admin: 04/03/18 13:06 Dose: 1 ea Zolpidem Tartrate (Ambien) 5 mg PO HS PRN PRN Reason: Insomnia Last Admin: 04/09/18 21:53 Dose: 5 mg - Labs Labs: 04/09/18 07:51 04/09/18 07:51 PT 12.9 SECONDS (9.7-12.2) H 03/21/18 04:41 INR 1.2 03/21/18 04:41 APTT 51 SECONDS (21-34) H 03/24/18 06:35 - Constitutional Appears: Non-toxic, Other (lethargic) - Head Exam Head Exam: ATRAUMATIC, NORMAL INSPECTION, NORMOCEPHALIC - Eye Exam Eye Exam: EOMI, Normal appearance. absent: Nystagmus Pupil Exam: PERRL - ENT Exam ENT Exam: Mucous Membranes Moist, Normal Exam - Neck Exam Neck Exam: Normal Inspection - Respiratory Exam Respiratory Exam: Clear to Ausculation Bilateral, NORMAL BREATHING PATTERN - Cardiovascular Exam Cardiovascular Exam: REGULAR RHYTHM, +S1, +S2 - GI/Abdominal Exam GI & Abdominal Exam: Soft, Normal Bowel Sounds (peg tube clamped beneath abdominal binder. Insertion site clean, no erythema/drainage). absent: Distended - Extremities Exam Extremities Exam: Normal Inspection (muscle wasting). absent: Pedal Edema - Neurological Exam Neurological Exam: Altered (intentionally unresponsive, prefers to sleep) - Skin Skin Exam: Dry, Intact, Normal Color (ecchymosis, b/l UE), Warm Assessment and Plan - Assessment and Plan (Free Text) Assessment: 67 yo male with pmhx of pulmonary fibrosis, COPD, HTN, and TDM2 admitted for treatment of AMS s/p cardiac arrest Plan: AMS - 24h EEG 03/29-03/30: severe encephalopathy/coma state - s/p PEG placement 03/26/18 - Neurology consulted, Dr. Menjivar/Pierre - ID consulted, Dr. Reddy - Surgery consulted, Dr. Morales - Palliative care consulted, Jessica Valdez - PT/OT/ST - Ambien 5mg hs s/p Cardiac Arrest - ASA 81mg - Crestor 10 mg - Duoneb Q6H - Cardiology consulted (Moira/Yury/Brina) - Pulmonology consulted (Martin) Pulmonary fibrosis, chronic, severe - CT chest: centrilobular emphysema and upper lobe pulmonary fibrosis - O2 NC - Prednisone taper - Pulmonology consulted, Dr. Salazar Type 2 diabetes mellitus, chronic - Accuchecks ACHS - Hypoglycemic protocol - ISS- medium - Lantus 20 units SC [facility] Hypertension - Cozaar 25mg - Lopressor 25 mg BID - Lopressor 5 mg IVP Q6H PRN, with holding parameters Ppx: VTE: restart heparin 5000 q8, SCDs GI: Protonix 40mg IV daily Will discuss with Dr. Franchesca Moore, PGY-1
[2018-04-10 07:50] LABS: BASO # 0.1 K/uL (0.0-0.2); BASO % 0.4 % (0.0-2.0); EOS # 0.5 K/uL (0.0-0.7); EOS % 3.5 % (0.0-4.0); HEMOGLOBIN 12.7 g/dL (12.0-18.0); LYMPH % 7.1 % (20.0-40.0); MEAN CELL VOLUME 89.8 fL (80.0-94.0); MEAN CORPUSCULAR HEMOGLOBIN 29.5 pg (27.0-31.0); MEAN CORPUSCULAR HGB CONC 32.8 g/dL (33.0-37.0); MEAN PLATELET VOLUME 11.7 fL (7.2-11.7); MONO # 0.4 K/uL (0.0-0.8); MONO % 2.8 % (0.0-10.0); NEUT # 11.8 K/uL (1.8-7.0); NEUT % 86.2 % (50.0-75.0); NRBC % 0.1 % (0.0-2.0); PLATELET COUNT 139 K/uL (130-400); RED CELL DISTRIBUTION WIDTH 14.1 % (11.5-14.5); WHITE BLOOD COUNT 13.7 K/uL (4.8-10.8)
[2018-04-10 07:57] LABS: ALBUMIN 2.7 g/dL (3.5-5.0); ALT/SGPT 58 U/L (21-72); AST/SGOT 24 U/L (17-59); BLOOD UREA NITROGEN 30 mg/dL (9-20); CALCIUM 8.3 mg/dl (8.6-10.4); GFR NON-AFRICAN AMERICAN > 60
[2018-04-10] MEDS: (Novolog) Insulin Aspart, Recombinant 100 u/ml 10 ml vial SC SCH ×4 (08:12→21:56)
[2018-04-10 09:29] LABS: ANISOCYTOSIS SLIGHT; BANDS 2 % (0-2); LYMPHOCYTE 6 % (20-40); MONOCYTE 4 % (0-10); NEUTROPHIL 88 % (50-75); PLATELET ESTIMATE NORMAL (NORMAL); TOTAL CELLS COUNTED 100
[2018-04-10 09:30] LABS: HYPOCHROMIC SLIGHT; POLYCHROMIC SLIGHT
[2018-04-10] MEDS: Vitamins A & D Oint UD Foilpak TOP PRN (11:31)
[2018-04-10] MEDS: Pantoprazole 40 mg Susp UD PO SCH (11:33)
[2018-04-10] MEDS: (Lantus) Insulin Glargine, Recombinant SC SCH (21:56)
--- NOTE | 2018-04-11 00:30 | CP.PCM.PN ---
<MooreRachel - Last Filed: 04/11/18 06:03> Subjective - Date & Time of Evaluation Date of Evaluation: 04/11/18 Time of Evaluation: 05:40 - Subjective Subjective: Patient examined at bedside, resting comfortable with family sleeping next to patient in room. No acute events overnight. ROS unobtainable, patient is sleeping and does not want to awaken. Objective - Vital Signs/Intake and Output Vital Signs (last 24 hours): Temp Pulse Resp BP Pulse Ox 97.3 F L 67 20 119/76 97 04/11/18 00:09 04/11/18 00:09 04/11/18 00:09 04/11/18 00:09 04/11/18 00:09 Intake and Output: 04/10/18 04/11/18 18:59 06:59 Intake Total 500 400 Balance 500 400 - Medications Medications: Current Medications Acetaminophen (Tylenol 650 Mg Supp) 650 mg [place] Q6 PRN PRN Reason: fever+pain Aspirin (Ecotrin) 81 mg PO DAILY [facility] Last Admin: 04/10/18 11:33 Dose: 81 mg Heparin Sodium (Porcine) (Heparin) 5,000 units SC Q8 [facility] Last Admin: 04/10/18 21:53 Dose: 5,000 units Insulin Aspart (Novolog) 0 unit SC [facility]; Protocol Last Admin: 04/10/18 21:56 Dose: 4 units Insulin Glargine (Lantus) 20 unit SC HS [facility] Last Admin: 04/10/18 21:56 Dose: 20 unit Losartan Potassium (Cozaar) 25 mg PO DAILY [facility] Last Admin: 04/10/18 11:33 Dose: 25 mg Metoprolol Tartrate (Lopressor) 5 mg IVP Q6 PRN PRN Reason: elevated blood pressure Last Admin: 03/31/18 06:09 Dose: 5 mg Metoprolol Tartrate (Lopressor) 25 mg PO BID [facility] Last Admin: 04/10/18 17:10 Dose: 25 mg Pantoprazole Sodium (Protonix Susp) 40 mg PO DAILY [facility] Last Admin: 04/10/18 11:33 Dose: 40 mg Prednisone (Prednisone Tab) 20 mg PO DAILY [facility] Stop: 04/12/18 10:01 Last Admin: 04/10/18 11:33 Dose: 20 mg Prednisone (Prednisone Tab) 10 mg PO DAILY [facility] Stop: 04/17/18 10:01 Rosuvastatin Calcium (Crestor) 10 mg PO HS [facility] Last Admin: 04/10/18 21:56 Dose: 10 mg Vitamin A (Vitamin A & D Oint Ud Foilpak) 1 ea TOP Q8 PRN PRN Reason: Dry mouth Last Admin: 04/10/18 11:31 Dose: 1 ea Zolpidem Tartrate (Ambien) 5 mg PO HS PRN PRN Reason: Insomnia Last Admin: 04/09/18 21:53 Dose: 5 mg - Labs Labs: 04/10/18 07:17 04/10/18 07:17 PT 12.9 SECONDS (9.7-12.2) H 03/21/18 04:41 INR 1.2 03/21/18 04:41 APTT 51 SECONDS (21-34) H 03/24/18 06:35 - Additional Findings Additional findings: - Constitutional Appears: Non-toxic, Other (lethargic) - Head Exam Head Exam: ATRAUMATIC, NORMAL INSPECTION, NORMOCEPHALIC - Eye Exam Eye Exam: EOMI, Normal appearance. absent: Nystagmus Pupil Exam: PERRL - ENT Exam ENT Exam: Mucous Membranes Moist, Normal Exam - Neck Exam Neck Exam: Normal Inspection - Respiratory Exam Respiratory Exam: Clear to Ausculation Bilateral, NORMAL BREATHING PATTERN - Cardiovascular Exam Cardiovascular Exam: REGULAR RHYTHM, +S1, +S2 - GI/Abdominal Exam GI & Abdominal Exam: Soft, Normal Bowel Sounds (peg tube clamped beneath abdominal binder. Insertion site clean, no erythema/drainage). absent: Distended - Extremities Exam Extremities Exam: Normal Inspection (muscle wasting). absent: Pedal Edema - Neurological Exam Neurological Exam: Altered (intentionally unresponsive, prefers to sleep) - Skin Skin Exam: Dry, Intact, Normal Color (ecchymosis, b/l UE), Warm Assessment and Plan - Assessment and Plan (Free Text) Assessment: 67 yo male with pmhx of pulmonary fibrosis, COPD, HTN, and DM2 admitted for treatment of AMS s/p cardiac arrest Plan: Plan: AMS - 24h EEG 03/29-03/30: severe encephalopathy/coma state - s/p PEG placement 03/26/18 - Neurology consulted, Dr. Menjivar/Pierre - ID consulted, Dr. Reddy - Surgery consulted, Dr. Morales - Palliative care consulted, Jessica Valdez - PT/OT/ST - Ambien 5mg hs s/p Cardiac Arrest - ASA 81mg - Crestor 10 mg - Duoneb Q6H - Cardiology consulted (Moira/Yury/Brina) - Pulmonology consulted (Martin) Pulmonary fibrosis, chronic, severe - CT chest: centrilobular emphysema and upper lobe pulmonary fibrosis - O2 NC - Prednisone taper - Pulmonology consulted, Dr. Salazar Type 2 diabetes mellitus, chronic - Accuchecks [facility] - Hypoglycemic protocol - ISS- medium - Lantus 20 units SC [facility] Nutrition -Dietitian calorie count in place -Soft diet with ensure supplements -PEG feeds not active Hypertension - Cozaar 25mg - Lopressor 25 mg BID - Lopressor 5 mg IVP Q6H PRN, with holding parameters Ppx: VTE: restart heparin 5000 q8, SCDs GI: Protonix 40mg IV daily Encourage PT Will discuss with Dr. Sorensen -Rachel Moore, PGY-1 <José Luis Sorensen - Last Filed: 04/11/18 10:49> Objective - Vital Signs/Intake and Output Vital Signs (last 24 hours): Temp Pulse Resp BP Pulse Ox 97.5 F L 67 20 110/70 99 04/11/18 08:00 04/11/18 08:00 04/11/18 08:00 04/11/18 10:36 04/11/18 08:00 Intake and Output: 04/11/18 04/11/18 06:59 18:59 Intake Total 500 Balance 500 - Medications Medications: Current Medications Acetaminophen (Tylenol 650 Mg Supp) 650 mg [place] Q6 PRN PRN Reason: fever+pain Aspirin (Ecotrin) 81 mg PO DAILY [facility] Last Admin: 04/11/18 10:36 Dose: 81 mg Heparin Sodium (Porcine) (Heparin) 5,000 units SC Q8 [facility] Last Admin: 04/11/18 05:39 Dose: 5,000 units Insulin Aspart (Novolog) 0 unit SC [facility]; Protocol Last Admin: 04/11/18 07:44 Dose: Not Given Insulin Glargine (Lantus) 20 unit SC HS [facility] Last Admin: 04/10/18 21:56 Dose: 20 unit Losartan Potassium (Cozaar) 25 mg PO DAILY [facility] Last Admin: 04/11/18 10:36 Dose: 25 mg Metoprolol Tartrate (Lopressor) 5 mg IVP Q6 PRN PRN Reason: elevated blood pressure Last Admin: 03/31/18 06:09 Dose: 5 mg Metoprolol Tartrate (Lopressor) 25 mg PO BID [facility] Last Admin: 04/11/18 10:36 Dose: 25 mg Pantoprazole Sodium (Protonix Susp) 40 mg PO DAILY [facility] Last Admin: 04/11/18 10:37 Dose: 40 mg Prednisone (Prednisone Tab) 20 mg PO DAILY [facility] Stop: 04/12/18 10:01 Last Admin: 04/11/18 10:36 Dose: 20 mg Prednisone (Prednisone Tab) 10 mg PO DAILY [facility] Stop: 04/17/18 10:01 Rosuvastatin Calcium (Crestor) 10 mg PO HS [facility] Last Admin: 04/10/18 21:56 Dose: 10 mg Vitamin A (Vitamin A & D Oint Ud Foilpak) 1 ea TOP Q8 PRN PRN Reason: Dry mouth Last Admin: 04/10/18 11:31 Dose: 1 ea Zolpidem Tartrate (Ambien) 5 mg PO HS PRN PRN Reason: Insomnia Last Admin: 04/11/18 03:11 Dose: 5 mg - Labs Labs: 04/11/18 08:52 04/11/18 08:52 PT 12.9 SECONDS (9.7-12.2) H 03/21/18 04:41 INR 1.2 03/21/18 04:41 APTT 51 SECONDS (21-34) H 03/24/18 06:35 Attending/Attestation - Attestation I have personally seen and examined this patient.: Yes I have fully participated in the care of the patient.: Yes I have reviewed all pertinent clinical information, including history, physical exam and plan: Yes Notes (Text): 04/11/18 10:43 Medical attending: Patient was seen and examined by me with the director of medical staff services. We saw the patient together. Patient's daughter at bedside and we again discussed at length Also I spoke with nutrition consult this morning and the food the family is bringing to the patient is adequate. (he just does not want the ensure supplements) The patient this morning was verbal saying one or two words. Sometimes he follows commands and sometimes he does not Plan is to remove PEG tube sometime this week. The daughter explains that at some point they would like to bring their family member home and fly him to [place]. She asked if flying would be safe and I said that would be ok provided that other family members come with him during the flight and to the airport. José Luis Sorensen
[2018-04-11] MEDS: (Novolog) Insulin Aspart, Recombinant 100 u/ml 10 ml vial SC SCH ×4 (07:44→21:59)
[2018-04-11 08:58] LABS: MONO # 0.4 K/uL (0.0-0.8); MONO % 2.8 % (0.0-10.0); NEUT % 86.4 % (50.0-75.0); RBC 4.12 Mil/uL (4.40-5.90)
[2018-04-11 09:05] LABS: BASO % 0.3 % (0.0-2.0); EOS # 0.6 K/uL (0.0-0.7); EOS % 4.7 % (0.0-4.0); LYMPH # 0.8 K/uL (1.0-4.3); LYMPH % 5.8 % (20.0-40.0); MEAN CELL VOLUME 90.9 fL (80.0-94.0); MEAN CORPUSCULAR HGB CONC 31.9 g/dL (33.0-37.0); MEAN PLATELET VOLUME 10.1 fL (7.2-11.7); NEUT # 11.2 K/uL (1.8-7.0); RED CELL DISTRIBUTION WIDTH 14.5 % (11.5-14.5)
[2018-04-11 09:06] LABS: PLATELET COUNT 110 K/uL (130-400)
[2018-04-11 09:21] LABS: ALBUMIN 2.8 g/dL (3.5-5.0); ALT/SGPT 45 U/L (21-72); AST/SGOT 23 U/L (17-59); BLOOD UREA NITROGEN 28 mg/dL (9-20); CALCIUM 8.4 mg/dl (8.6-10.4); GFR NON-AFRICAN AMERICAN > 60
[2018-04-11] MEDS: Pantoprazole 40 mg Susp UD PO SCH (10:37)
[2018-04-11 11:10] LABS: ANISOCYTOSIS SLIGHT; BANDS 2 % (0-2); EOSINOPHIL 8 % (0-4); LYMPHOCYTE 5 % (20-40); MONOCYTE 2 % (0-10); NEUTROPHIL 83 % (50-75); PLATELET ESTIMATE SLIGHTLY DECREASED (NORMAL); TOTAL CELLS COUNTED 100
[2018-04-11 11:11] LABS: LARGE PLATELETS PRESENT; TOXIC GRANULATION PRESENT
[2018-04-11 11:12] LABS: HYPOCHROMIC SLIGHT; POLYCHROMIC SLIGHT
[2018-04-11] MEDS: (Lantus) Insulin Glargine, Recombinant SC SCH (22:06)
[2018-04-12] MEDS: (Novolog) Insulin Aspart, Recombinant 100 u/ml 10 ml vial SC SCH ×4 (08:08→21:55)
--- NOTE | 2018-04-12 08:48 | CP.PCM.PN ---
<John Escoto - Last Filed: 04/12/18 15:24> Subjective - Date & Time of Evaluation Date of Evaluation: 04/12/18 Time of Evaluation: 08:48 - Subjective Subjective: PGY1 Medicine Progress Note for Dr. Dawson Patient was seen and evaluated at bedside this morning. No acute events overnight. Patient's family is at bedside and would like to take the Patient back to [facility], and are currently in the process of obtaining a passport. Per Patient's family, the Patient tolerating regular diet well. Patient is currently without PEG tube. Patient able to get out of bed to chair with assistance for several hours. Patient able to follow commands. Objective - Vital Signs/Intake and Output Vital Signs (last 24 hours): Temp Pulse Resp BP Pulse Ox 97.9 F 81 20 128/87 97 04/12/18 08:16 04/12/18 08:16 04/12/18 08:16 04/12/18 08:16 04/12/18 08:16 Intake and Output: 04/12/18 04/12/18 06:59 18:59 Intake Total 400 Balance 400 - Medications Medications: Current Medications Acetaminophen (Tylenol 650 Mg Supp) 650 mg [place] Q6 PRN PRN Reason: fever+pain Aspirin (Ecotrin) 81 mg PO DAILY [facility] Last Admin: 04/11/18 10:36 Dose: 81 mg Heparin Sodium (Porcine) (Heparin) 5,000 units SC Q8 [facility] Last Admin: 04/11/18 22:05 Dose: 5,000 units Insulin Aspart (Novolog) 0 unit SC [facility]; Protocol Last Admin: 04/12/18 08:08 Dose: Not Given Insulin Glargine (Lantus) 20 unit SC HS [facility] Last Admin: 04/11/18 22:06 Dose: 20 unit Losartan Potassium (Cozaar) 25 mg PO DAILY [facility] Last Admin: 04/11/18 10:36 Dose: 25 mg Metoprolol Tartrate (Lopressor) 5 mg IVP Q6 PRN PRN Reason: elevated blood pressure Last Admin: 03/31/18 06:09 Dose: 5 mg Metoprolol Tartrate (Lopressor) 25 mg PO BID [facility] Last Admin: 04/11/18 17:44 Dose: 25 mg Pantoprazole Sodium (Protonix Susp) 40 mg PO DAILY [facility] Last Admin: 04/11/18 10:37 Dose: 40 mg Prednisone (Prednisone Tab) 20 mg PO DAILY [facility] Stop: 04/12/18 10:01 Last Admin: 04/11/18 10:36 Dose: 20 mg Prednisone (Prednisone Tab) 10 mg PO DAILY [facility] Stop: 04/17/18 10:01 Rosuvastatin Calcium (Crestor) 10 mg PO HS [facility] Last Admin: 04/11/18 21:30 Dose: 10 mg Vitamin A (Vitamin A & D Oint Ud Foilpak) 1 ea TOP Q8 PRN PRN Reason: Dry mouth Last Admin: 04/10/18 11:31 Dose: 1 ea Zolpidem Tartrate (Ambien) 5 mg PO HS PRN PRN Reason: Insomnia Last Admin: 04/11/18 22:11 Dose: 5 mg - Labs Labs: 04/11/18 08:52 04/11/18 08:52 PT 12.9 SECONDS (9.7-12.2) H 03/21/18 04:41 INR 1.2 03/21/18 04:41 APTT 51 SECONDS (21-34) H 03/24/18 06:35 - Additional Findings Additional findings: - Constitutional Appears: Non-toxic, Other (lethargic) - Head Exam Head Exam: ATRAUMATIC, NORMAL INSPECTION, NORMOCEPHALIC - Eye Exam Eye Exam: EOMI, Normal appearance. absent: Nystagmus Pupil Exam: PERRL - ENT Exam ENT Exam: Mucous Membranes Moist, Normal Exam - Neck Exam Neck Exam: Normal Inspection - Respiratory Exam Respiratory Exam: Clear to Ausculation Bilateral, NORMAL BREATHING PATTERN - Cardiovascular Exam Cardiovascular Exam: REGULAR RHYTHM, +S1, +S2 - GI/Abdominal Exam GI & Abdominal Exam: Soft, Normal Bowel Sounds (peg tube clamped beneath abdominal binder. Insertion site clean, no erythema/drainage). absent: Distended - Extremities Exam Extremities Exam: Normal Inspection (muscle wasting). absent: Pedal Edema - Neurological Exam Neurological Exam: Altered (intentionally unresponsive, prefers to sleep) ROM within normal limits for lower extremities bilaterally Muscle strength 4/5 bilaterally in upper and lower extremities. - Skin Skin Exam: Dry, Intact, Normal Color (ecchymosis, b/l UE), Warm Assessment and Plan - Assessment and Plan (Free Text) Assessment: 67 yo male with pmhx of pulmonary fibrosis, COPD, HTN, and DM2 admitted for treatment of AMS s/p cardiac arrest Plan: Plan: AMS - 24h EEG 03/29-03/30: severe encephalopathy/coma state - No longer with PEG tube - Neurology consulted, Dr. Menjivar/Pierre; recommendations appreciated - ID consulted, Dr. Reddy - Surgery consulted, Dr. Morales - Palliative care consulted, Jessica Valdez - PT/OT/ST - Continue ambien 5mg hs s/p Cardiac Arrest - Continue ASA 81mg - Continue Crestor 10 mg - Continue Duoneb Q6H - Cardiology consulted (Moira/Yury/Brina) - Pulmonology consulted (Martin) Pulmonary fibrosis, chronic, severe - CT chest: centrilobular emphysema and upper lobe pulmonary fibrosis - O2 NC - Continue Prednisone taper - Pulmonology consulted, Dr. Salazar; recommendations appreciated Type 2 diabetes mellitus, chronic - Accuchecks ACHS - Hypoglycemic protocol - ISS- medium - Continue Lantus 20 units SC [facility] Nutrition - Dietitian calorie count in place - Soft diet with ensure supplements Hypertension, controlled - Cozaar 25mg - Lopressor 25 mg BID - Lopressor 5 mg IVP Q6H PRN, with holding parameters Ppx: VTE: restart heparin 5000 q8, SCDs GI: Protonix 40mg IV daily Encourage PT Patient seen and case discussed in detail with Dr. Eunice Escoto PGY1 <Lynette Dawson - Last Filed: 04/14/18 17:53> Objective - Vital Signs/Intake and Output Vital Signs (last 24 hours): Temp Pulse Resp BP Pulse Ox 97.4 F L 76 20 120/89 98 04/14/18 08:30 04/14/18 08:30 04/14/18 08:30 04/14/18 09:59 04/14/18 08:30 Intake and Output: 04/14/18 04/14/18 06:59 18:59 Intake Total 800 480 Balance 800 480 - Medications Medications: Current Medications Aspirin (Ecotrin) 81 mg PO DAILY [facility] Last Admin: 04/14/18 09:59 Dose: 81 mg Heparin Sodium (Porcine) (Heparin) 5,000 units SC Q8 [facility] Last Admin: 04/14/18 13:37 Dose: 5,000 units Insulin Aspart (Novolog) 0 unit SC [facility]; Protocol Last Admin: 04/14/18 12:22 Dose: 6 units Insulin Glargine (Lantus) 20 unit SC HS [facility] Last Admin: 04/13/18 21:41 Dose: 20 unit Losartan Potassium (Cozaar) 25 mg PO DAILY [facility] Last Admin: 04/14/18 09:59 Dose: 25 mg Metoprolol Tartrate (Lopressor) 5 mg IVP Q6 PRN PRN Reason: elevated blood pressure Last Admin: 03/31/18 06:09 Dose: 5 mg Metoprolol Tartrate (Lopressor) 25 mg PO BID [facility] Last Admin: 04/14/18 09:59 Dose: 25 mg Pantoprazole Sodium (Protonix Susp) 40 mg PO DAILY [facility] Last Admin: 04/14/18 09:59 Dose: 40 mg Prednisone (Prednisone Tab) 10 mg PO DAILY [facility] Stop: 04/17/18 10:01 Last Admin: 04/14/18 09:59 Dose: 10 mg Rosuvastatin Calcium (Crestor) 10 mg PO HS [facility] Last Admin: 04/13/18 21:36 Dose: 10 mg Zolpidem Tartrate (Ambien) 5 mg PO HS PRN PRN Reason: Insomnia Last Admin: 04/12/18 22:13 Dose: 5 mg - Labs Labs: 04/14/18 11:31 04/14/18 11:31 PT 12.9 SECONDS (9.7-12.2) H 03/21/18 04:41 INR 1.2 03/21/18 04:41 APTT 51 SECONDS (21-34) H 03/24/18 06:35 Attending/Attestation - Attestation I have personally seen and examined this patient.: Yes I have fully participated in the care of the patient.: Yes I have reviewed all pertinent clinical information, including history, physical exam and plan: Yes Notes (Text): Seen and examined by me. patient is sitting on chair comfortable. Confused spoke to daughter . she is planning to take him to [facility]
[2018-04-12] MEDS: Pantoprazole 40 mg Susp UD PO SCH (10:23)
--- NOTE | 2018-04-12 11:02 | CP.PCM.PN ---
<Elizabeth Shen - Last Filed: 04/12/18 18:17> Subjective - Date & Time of Evaluation Date of Evaluation: 04/12/18 Time of Evaluation: 11:02 - Subjective Subjective: Neurology Progress Note for Dr. Menjivar Patient seen and examined at bedside. Daughter and present at bedside. As per daughter, he continues to be confused and still thinks he is in [place], but is occasionally able to follow commands. He has difficulty concentrating on tasks. He has no complaints at this time. As per daughter, she was able to help him from the bed to sit up in chair, but she had to help him back to the bed when he had a bowel movement. He offers no complaints to family at bedside, denies headache, change in vision or hearing, dizziness, chest pain, abdominal pain, nauseas, vomiting, diarrhea. Objective - Vital Signs/Intake and Output Vital Signs (last 24 hours): Temp Pulse Resp BP Pulse Ox 97.9 F 81 20 128/87 97 04/12/18 08:16 04/12/18 08:16 04/12/18 08:16 04/12/18 10:23 04/12/18 08:16 Intake and Output: 04/12/18 04/12/18 06:59 18:59 Intake Total 400 Balance 400 - Medications Medications: Current Medications Acetaminophen (Tylenol 650 Mg Supp) 650 mg [place] Q6 PRN PRN Reason: fever+pain Aspirin (Ecotrin) 81 mg PO DAILY [facility] Last Admin: 04/12/18 10:23 Dose: 81 mg Heparin Sodium (Porcine) (Heparin) 5,000 units SC Q8 [facility] Last Admin: 04/11/18 22:05 Dose: 5,000 units Insulin Aspart (Novolog) 0 unit SC ACHS [facility]; Protocol Last Admin: 04/12/18 08:08 Dose: Not Given Insulin Glargine (Lantus) 20 unit SC HS [facility] Last Admin: 04/11/18 22:06 Dose: 20 unit Losartan Potassium (Cozaar) 25 mg PO DAILY [facility] Last Admin: 04/12/18 10:23 Dose: 25 mg Metoprolol Tartrate (Lopressor) 5 mg IVP Q6 PRN PRN Reason: elevated blood pressure Last Admin: 03/31/18 06:09 Dose: 5 mg Metoprolol Tartrate (Lopressor) 25 mg PO BID [facility] Last Admin: 04/12/18 10:23 Dose: 25 mg Pantoprazole Sodium (Protonix Susp) 40 mg PO DAILY [facility] Last Admin: 04/12/18 10:23 Dose: 40 mg Prednisone (Prednisone Tab) 10 mg PO DAILY [facility] Stop: 04/17/18 10:01 Rosuvastatin Calcium (Crestor) 10 mg PO HS [facility] Last Admin: 04/11/18 21:30 Dose: 10 mg Vitamin A (Vitamin A & D Oint Ud Foilpak) 1 ea TOP Q8 PRN PRN Reason: Dry mouth Last Admin: 04/10/18 11:31 Dose: 1 ea Zolpidem Tartrate (Ambien) 5 mg PO HS PRN PRN Reason: Insomnia Last Admin: 04/11/18 22:11 Dose: 5 mg - Labs Labs: 04/11/18 08:52 04/11/18 08:52 PT 12.9 SECONDS (9.7-12.2) H 03/21/18 04:41 INR 1.2 03/21/18 04:41 APTT 51 SECONDS (21-34) H 03/24/18 06:35 - Constitutional Appears: No Acute Distress, Confused - Head Exam Head Exam: ATRAUMATIC, NORMOCEPHALIC - Eye Exam Eye Exam: EOMI, PERRL Pupil Exam: PERRL - ENT Exam ENT Exam: Mucous Membranes Moist - Respiratory Exam Respiratory Exam: Clear to Ausculation Bilateral, NORMAL BREATHING PATTERN - Cardiovascular Exam Cardiovascular Exam: REGULAR RHYTHM, +S1, +S2 - Neurological Exam Neurological Exam: Alert, Awake. absent: Oriented x3 Neuro motor strength exam: Left Upper Extremity: 5, Right Upper Extremity: 5, Left Lower Extremity: 5, Right Lower Extremity: 5 Additional comments: Able to move all extremities by himself. Can lift his arms and legs on command. Can follow some commands, but gets distracted Can speak to family in 2 to 3 words Remains confused occasionally, thinks he is in [place], and that it is [place] No tremors noted. - Skin Skin Exam: Dry, Intact, Warm Assessment and Plan - Assessment and Plan (Free Text) Plan: Altered mental status, improving -MRI Brain (04/05/18): Age related degenerative changes are reinterated which appear age-appropriate. No definite acute intracranial findingd by standard MR criteria. Motion infarcts limit the examination across numerous sequences in this exam. -Head CT (03/26/18): Limited study secondary to suboptimal patient positioning and technique. 1. 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 Further evaluation with CT angiogram of the head and neck is recommended for further evaluation. Additional etiologies are not excluded. In addition, correlation with MRI would also be helpful if clinically indicated. 2. Sinus mucosal disease as above. -Head CT (03/19/18): 9x11mm Right middle cerebral artery aneurysm -Head CT (03/22/18): Mild generalized volume loss. Previously noted right MCA aneurysm. -EEG (03/29/18): This is an abnormal 24 hour VEEG. The presence of diffuse spindles throughout the record as well as a poorly reactive low amplitude background indicates severe encephalopathy/coma state. The absence of epileptiform discharges during the EEG recording does not rule out the diagnosis of a seizure disorder. -Continue ASA 81mg PO -Continue Crestor 10mg PO HS -Continue Physical therapy, occupational therapy and speech therapy Case discussed with Dr. Otto Shen, PGY1 <Bharati Menjivar - Last Filed: 04/12/18 21:37> Objective - Vital Signs/Intake and Output Vital Signs (last 24 hours): Temp Pulse Resp BP Pulse Ox 97.9 F 81 20 128/78 97 04/12/18 08:16 04/12/18 08:16 04/12/18 08:16 04/12/18 18:04 04/12/18 08:16 Intake and Output: 04/12/18 04/13/18 18:59 06:59 Intake Total 500 Balance 500 - Medications Medications: Current Medications Acetaminophen (Tylenol 650 Mg Supp) 650 mg [place] Q6 PRN PRN Reason: fever+pain Aspirin (Ecotrin) 81 mg PO DAILY [facility] Last Admin: 04/12/18 10:23 Dose: 81 mg Heparin Sodium (Porcine) (Heparin) 5,000 units SC Q8 [facility] Last Admin: 04/12/18 14:47 Dose: 5,000 units Insulin Aspart (Novolog) 0 unit SC ACHS [facility]; Protocol Last Admin: 04/12/18 18:05 Dose: 10 units Insulin Glargine (Lantus) 20 unit SC HS [facility] Last Admin: 04/11/18 22:06 Dose: 20 unit Losartan Potassium (Cozaar) 25 mg PO DAILY [facility] Last Admin: 04/12/18 10:23 Dose: 25 mg Metoprolol Tartrate (Lopressor) 5 mg IVP Q6 PRN PRN Reason: elevated blood pressure Last Admin: 03/31/18 06:09 Dose: 5 mg Metoprolol Tartrate (Lopressor) 25 mg PO BID [facility] Last Admin: 04/12/18 18:04 Dose: 25 mg Pantoprazole Sodium (Protonix Susp) 40 mg PO DAILY [facility] Last Admin: 04/12/18 10:23 Dose: 40 mg Prednisone (Prednisone Tab) 10 mg PO DAILY [facility] Stop: 04/17/18 10:01 Rosuvastatin Calcium (Crestor) 10 mg PO HS [facility] Last Admin: 04/11/18 21:30 Dose: 10 mg Vitamin A (Vitamin A & D Oint Ud Foilpak) 1 ea TOP Q8 PRN PRN Reason: Dry mouth Last Admin: 04/10/18 11:31 Dose: 1 ea Zolpidem Tartrate (Ambien) 5 mg PO HS PRN PRN Reason: Insomnia Last Admin: 04/11/18 22:11 Dose: 5 mg - Labs Labs: 04/12/18 11:18 04/12/18 11:18 PT 12.9 SECONDS (9.7-12.2) H 03/21/18 04:41 INR 1.2 03/21/18 04:41 APTT 51 SECONDS (21-34) H 03/24/18 06:35 Assessment and Plan - Assessment and Plan (Free Text) Plan: Mr. Mejia is now mildly encephalopathic, vast improvemnet from initial anoxic picture. He is receiving speech therapy and does not have any seizures. He will be taken to [facility] for further care. I examined the patient independently and formulated the assessment and plan All medical record entries made by the Resident were at my direction and personally dictated by me. I have reviewed the chart and agree that the record accurately reflects my personal performance of the history, physical exam, medical decision making, and the department course for this patient. I have also personally directed, reviewed, and agree with the discharge instructions and disposition. Dr. Menjivar Neurology
[2018-04-12 11:37] LABS: BASO # 0.1 K/uL (0.0-0.2); BASO % 0.3 % (0.0-2.0); EOS # 0.6 K/uL (0.0-0.7); EOS % 3.3 % (0.0-4.0); HEMOGLOBIN 13.4 g/dL (12.0-18.0); LYMPH # 1.1 K/uL (1.0-4.3); LYMPH % 6.3 % (20.0-40.0); MEAN CELL VOLUME 91.1 fL (80.0-94.0); MEAN CORPUSCULAR HGB CONC 31.8 g/dL (33.0-37.0); MEAN PLATELET VOLUME 10.8 fL (7.2-11.7); MONO # 0.5 K/uL (0.0-0.8); MONO % 2.8 % (0.0-10.0); NEUT # 14.9 K/uL (1.8-7.0); NEUT % 87.3 % (50.0-75.0); PLATELET COUNT 154 K/uL (130-400); RBC 4.63 Mil/uL (4.40-5.90); RED CELL DISTRIBUTION WIDTH 14.4 % (11.5-14.5); WHITE BLOOD COUNT 17.1 K/uL (4.8-10.8)
[2018-04-12 11:57] LABS: ALBUMIN 3.1 g/dL (3.5-5.0); ALT/SGPT 31 U/L (21-72); AST/SGOT 38 U/L (17-59); BLOOD UREA NITROGEN 24 mg/dL (9-20); CALCIUM 8.6 mg/dl (8.6-10.4); GFR NON-AFRICAN AMERICAN > 60
[2018-04-12 12:05] LABS: BANDS 5 % (0-2); EOSINOPHIL 3 % (0-4); GIANT PLATELETS PRESENT; LARGE PLATELETS PRESENT; LYMPHOCYTE 7 % (20-40); MONOCYTE 2 % (0-10); MYELOCYTE 1 % (0-0); NEUTROPHIL 82 % (50-75); PLATELET ESTIMATE NORMAL (NORMAL); TOTAL CELLS COUNTED 100
[2018-04-12] MEDS: (Lantus) Insulin Glargine, Recombinant SC SCH (22:11)
--- NOTE | 2018-04-13 07:49 | CP.PCM.PN ---
<John Escoto - Last Filed: 04/13/18 14:25> Subjective - Date & Time of Evaluation Date of Evaluation: 04/13/18 Time of Evaluation: 07:48 - Subjective Subjective: PGY1 Medicine Progress Note for Dr. Dawson Patient evaluated and examined at bedside. No acute overnight events overnight. Patient's daughter is at bedside and states she will be arranging for Patient's flight back to [place]; she is going [place] today. Will follow-up. No other complaints. ROS is unobtainable due to Patient's clinical condition. Objective - Vital Signs/Intake and Output Vital Signs (last 24 hours): Temp Pulse Resp BP Pulse Ox 97.4 F L 73 20 139/85 94 L 04/13/18 00:00 04/13/18 00:00 04/13/18 00:00 04/13/18 00:00 04/13/18 00:00 Intake and Output: 04/13/18 04/13/18 06:59 18:59 Intake Total 550 Balance 550 - Medications Medications: Current Medications Acetaminophen (Tylenol 650 Mg Supp) 650 mg [place] Q6 PRN PRN Reason: fever+pain Aspirin (Ecotrin) 81 mg PO DAILY [facility] Last Admin: 04/12/18 10:23 Dose: 81 mg Heparin Sodium (Porcine) (Heparin) 5,000 units SC Q8 [facility] Last Admin: 04/13/18 05:25 Dose: 5,000 units Insulin Aspart (Novolog) 0 unit SC [facility]; Protocol Last Admin: 04/12/18 18:05 Dose: 10 units Insulin Glargine (Lantus) 20 unit SC HS [facility] Last Admin: 04/12/18 22:11 Dose: 20 unit Losartan Potassium (Cozaar) 25 mg PO DAILY [facility] Last Admin: 04/12/18 10:23 Dose: 25 mg Metoprolol Tartrate (Lopressor) 5 mg IVP Q6 PRN PRN Reason: elevated blood pressure Last Admin: 03/31/18 06:09 Dose: 5 mg Metoprolol Tartrate (Lopressor) 25 mg PO BID [facility] Last Admin: 04/12/18 18:04 Dose: 25 mg Pantoprazole Sodium (Protonix Susp) 40 mg PO DAILY [facility] Last Admin: 04/12/18 10:23 Dose: 40 mg Prednisone (Prednisone Tab) 10 mg PO DAILY [facility] Stop: 04/17/18 10:01 Rosuvastatin Calcium (Crestor) 10 mg PO HS [facility] Last Admin: 04/12/18 22:12 Dose: 10 mg Vitamin A (Vitamin A & D Oint Ud Foilpak) 1 ea TOP Q8 PRN PRN Reason: Dry mouth Last Admin: 04/10/18 11:31 Dose: 1 ea Zolpidem Tartrate (Ambien) 5 mg PO HS PRN PRN Reason: Insomnia Last Admin: 04/12/18 22:13 Dose: 5 mg - Labs Labs: 04/12/18 11:18 04/12/18 11:18 PT 12.9 SECONDS (9.7-12.2) H 03/21/18 04:41 INR 1.2 03/21/18 04:41 APTT 51 SECONDS (21-34) H 03/24/18 06:35 - Additional Findings Additional findings: - Constitutional Appears: Non-toxic, Other (lethargic) - Head Exam Head Exam: ATRAUMATIC, NORMAL INSPECTION, NORMOCEPHALIC - Eye Exam Eye Exam: EOMI, Normal appearance. absent: Nystagmus Pupil Exam: PERRL - ENT Exam ENT Exam: Mucous Membranes Moist, Normal Exam - Neck Exam Neck Exam: Normal Inspection - Respiratory Exam Respiratory Exam: Clear to Ausculation Bilateral, NORMAL BREATHING PATTERN - Cardiovascular Exam Cardiovascular Exam: REGULAR RHYTHM, +S1, +S2 - GI/Abdominal Exam GI & Abdominal Exam: Soft, Normal Bowel Sounds (peg tube clamped beneath abdominal binder. Insertion site clean, no erythema/drainage). absent: Distended - Extremities Exam Extremities Exam: Normal Inspection (muscle wasting). absent: Pedal Edema - Neurological Exam Neurological Exam: Altered (intentionally unresponsive, prefers to sleep) ROM within normal limits for lower extremities bilaterally Muscle strength 4/5 bilaterally in upper and lower extremities. - Skin Skin Exam: Dry, Intact, Normal Color (ecchymosis, b/l UE), Warm Assessment and Plan - Assessment and Plan (Free Text) Assessment: 67 yo male with pmhx of pulmonary fibrosis, COPD, HTN, and DM2 admitted for treatment of AMS s/p cardiac arrest. Pending PT evaluation; able to get out of bed to chair with assistance. Plan: AMS - 24h EEG 03/29-03/30: severe encephalopathy/coma state - Neurology consulted, Dr. Menjivar/Pierre; recommendations appreciated - ID consulted, Dr. Reddy - Surgery consulted, Dr. Morales - Palliative care consulted, Jessica Valdez - PT/OT/ST - Continue ambien 5mg hs s/p Cardiac Arrest - Continue ASA 81mg - Continue Crestor 10 mg - Continue Duoneb Q6H - Cardiology consulted (Moira/Yury/Brina) - Pulmonology consulted (Martin) Pulmonary fibrosis, chronic, severe - CT chest: centrilobular emphysema and upper lobe pulmonary fibrosis - O2 NC - Continue Prednisone taper - Pulmonology consulted, Dr. Salazar; recommendations appreciated Type 2 diabetes mellitus, chronic - Accuchecks ACHS - Hypoglycemic protocol - ISS- medium - Continue Lantus 20 units SC QHS Nutrition - Dietitian calorie count in place - Soft diet with ensure supplements Hypertension, controlled - Cozaar 25mg - Lopressor 25 mg BID - Lopressor 5 mg IVP Q6H PRN, with holding parameters Ppx: VTE: restart heparin 5000 q8, SCDs GI: Protonix 40mg IV daily Encourage PT Patient seen and case discussed in detail with Dr. Eunice Escoto PGY1 <Lynette Dawson - Last Filed: 04/14/18 18:12> Objective - Vital Signs/Intake and Output Vital Signs (last 24 hours): Temp Pulse Resp BP Pulse Ox 97.4 F L 76 20 101/61 98 04/14/18 08:30 04/14/18 08:30 04/14/18 08:30 04/14/18 17:43 04/14/18 08:30 Intake and Output: 04/14/18 04/14/18 06:59 18:59 Intake Total 800 480 Balance 800 480 - Medications Medications: Current Medications Aspirin (Ecotrin) 81 mg PO DAILY [facility] Last Admin: 04/14/18 09:59 Dose: 81 mg Heparin Sodium (Porcine) (Heparin) 5,000 units SC Q8 [facility] Last Admin: 04/14/18 13:37 Dose: 5,000 units Insulin Aspart (Novolog) 0 unit SC ACHS [facility]; Protocol Last Admin: 04/14/18 17:44 Dose: 4 units Insulin Glargine (Lantus) 20 unit SC HS [facility] Last Admin: 04/13/18 21:41 Dose: 20 unit Losartan Potassium (Cozaar) 25 mg PO DAILY [facility] Last Admin: 04/14/18 09:59 Dose: 25 mg Metoprolol Tartrate (Lopressor) 5 mg IVP Q6 PRN PRN Reason: elevated blood pressure Last Admin: 03/31/18 06:09 Dose: 5 mg Metoprolol Tartrate (Lopressor) 25 mg PO BID [facility] Last Admin: 04/14/18 17:43 Dose: 25 mg Pantoprazole Sodium (Protonix Susp) 40 mg PO DAILY [facility] Last Admin: 04/14/18 09:59 Dose: 40 mg Prednisone (Prednisone Tab) 10 mg PO DAILY [facility] Stop: 04/17/18 10:01 Last Admin: 04/14/18 09:59 Dose: 10 mg Rosuvastatin Calcium (Crestor) 10 mg PO HS [facility] Last Admin: 04/13/18 21:36 Dose: 10 mg Zolpidem Tartrate (Ambien) 5 mg PO HS PRN PRN Reason: Insomnia Last Admin: 04/12/18 22:13 Dose: 5 mg - Labs Labs: 04/14/18 11:31 04/14/18 11:31 PT 12.9 SECONDS (9.7-12.2) H 03/21/18 04:41 INR 1.2 03/21/18 04:41 APTT 51 SECONDS (21-34) H 03/24/18 06:35 Attending/Attestation - Attestation I have personally seen and examined this patient.: Yes I have fully participated in the care of the patient.: Yes I have reviewed all pertinent clinical information, including history, physical exam and plan: Yes Notes (Text): seen and examined by me.Patient is lying on bed,confused,spoke to his at bedside continue Lantus,His goes up in the evenings. we will continue Lantus and prednisone taper continue crestor,asprin,lopressor and cozaar Getting oral diet
[2018-04-13] MEDS: (Novolog) Insulin Aspart, Recombinant 100 u/ml 10 ml vial SC SCH ×4 (08:21→21:40)
[2018-04-13] MEDS: Pantoprazole 40 mg Susp UD PO SCH (09:57)
[2018-04-13 11:34] LABS: BASO # 0.1 K/uL (0.0-0.2); BASO % 0.4 % (0.0-2.0); EOS # 0.7 K/uL (0.0-0.7); EOS % 5.2 % (0.0-4.0); HEMOGLOBIN 11.7 g/dL (12.0-18.0); LYMPH # 0.7 K/uL (1.0-4.3); LYMPH % 5.2 % (20.0-40.0); MEAN CELL VOLUME 90.8 fL (80.0-94.0); MEAN CORPUSCULAR HGB CONC 31.9 g/dL (33.0-37.0); MEAN PLATELET VOLUME 10.5 fL (7.2-11.7); MONO # 0.4 K/uL (0.0-0.8); NEUT # 11.7 K/uL (1.8-7.0); NEUT % 86.2 % (50.0-75.0); NRBC % 0.1 % (0.0-2.0); RBC 4.04 Mil/uL (4.40-5.90); RED CELL DISTRIBUTION WIDTH 14.7 % (11.5-14.5); WHITE BLOOD COUNT 13.6 K/uL (4.8-10.8)
[2018-04-13 11:46] LABS: PLATELET COUNT 116 K/uL (130-400)
[2018-04-13 12:20] LABS: BANDS 1 % (0-2); LYMPHOCYTE 4 % (20-40); MONOCYTE 2 % (0-10); MYELOCYTE 1 % (0-0); TOTAL CELLS COUNTED 100
[2018-04-13 12:21] LABS: ANISOCYTOSIS SLIGHT; EOSINOPHIL 6 % (0-4); HYPOCHROMIC SLIGHT; NEUTROPHIL 86 % (50-75); PLATELET ESTIMATE SLIGHTLY DECREASED (NORMAL); POIKILOCYTOSIS SLIGHT
[2018-04-13 12:22] LABS: GIANT PLATELETS PRESENT; LARGE PLATELETS PRESENT
[2018-04-13 12:29] LABS: ALB/GLOB RATIO 0.9 (1.0-2.1); ALBUMIN 2.5 g/dL (3.5-5.0); ALT/SGPT 33 U/L (21-72); AST/SGOT 24 U/L (17-59); BLOOD UREA NITROGEN 27 mg/dL (9-20); CALCIUM 8.5 mg/dl (8.6-10.4); GFR NON-AFRICAN AMERICAN > 60
--- NOTE | 2018-04-13 13:49 | CP.PCM.PN ---
Subjective - Date & Time of Evaluation Date of Evaluation: 04/13/18 Time of Evaluation: 11:20 - Subjective Subjective: Neurology Progress Note for Dr. Menjivar Patient seen and examined at bedside. present at bedside. Son present on videochat. Patient is reportedly less confused that yesterday and continues to be able to move all extremities. He denies any headache, lightheadedness, dizziness, vision or hearing changes, pain, nausea, vomiting. Family states that patient would like to stand up, however he states that he feels too weak to do so. Objective - Vital Signs/Intake and Output Vital Signs (last 24 hours): Temp Pulse Resp BP Pulse Ox 98.2 F 61 20 140/80 97 04/13/18 08:00 04/13/18 08:00 04/13/18 08:00 04/13/18 11:00 04/13/18 08:00 Intake and Output: 04/13/18 04/13/18 06:59 18:59 Intake Total 550 Balance 550 - Medications Medications: Current Medications Acetaminophen (Tylenol 650 Mg Supp) 650 mg [place] Q6 PRN PRN Reason: fever+pain Aspirin (Ecotrin) 81 mg PO DAILY [facility] Last Admin: 04/13/18 09:57 Dose: 81 mg Heparin Sodium (Porcine) (Heparin) 5,000 units SC Q8 [facility] Last Admin: 04/13/18 05:25 Dose: 5,000 units Insulin Aspart (Novolog) 0 unit SC ACHS [facility]; Protocol Last Admin: 04/13/18 12:16 Dose: 4 units Insulin Glargine (Lantus) 20 unit SC HS [facility] Last Admin: 04/12/18 22:11 Dose: 20 unit Losartan Potassium (Cozaar) 25 mg PO DAILY [facility] Last Admin: 04/13/18 11:00 Dose: 25 mg Metoprolol Tartrate (Lopressor) 5 mg IVP Q6 PRN PRN Reason: elevated blood pressure Last Admin: 03/31/18 06:09 Dose: 5 mg Metoprolol Tartrate (Lopressor) 25 mg PO BID [facility] Last Admin: 04/13/18 11:00 Dose: 25 mg Pantoprazole Sodium (Protonix Susp) 40 mg PO DAILY [facility] Last Admin: 04/13/18 09:57 Dose: 40 mg Prednisone (Prednisone Tab) 10 mg PO DAILY [facility] Stop: 04/17/18 10:01 Last Admin: 04/13/18 09:57 Dose: 10 mg Rosuvastatin Calcium (Crestor) 10 mg PO HS [facility] Last Admin: 04/12/18 22:12 Dose: 10 mg Zolpidem Tartrate (Ambien) 5 mg PO HS PRN PRN Reason: Insomnia Last Admin: 04/12/18 22:13 Dose: 5 mg - Labs Labs: 04/13/18 11:28 04/13/18 11:28 PT 12.9 SECONDS (9.7-12.2) H 03/21/18 04:41 INR 1.2 03/21/18 04:41 APTT 51 SECONDS (21-34) H 03/24/18 06:35 - Constitutional Appears: No Acute Distress - Head Exam Head Exam: ATRAUMATIC, NORMOCEPHALIC - Eye Exam Eye Exam: EOMI, PERRL - ENT Exam ENT Exam: Mucous Membranes Moist - Neck Exam Neck Exam: Full ROM - Respiratory Exam Respiratory Exam: Clear to Ausculation Bilateral, NORMAL BREATHING PATTERN - Cardiovascular Exam Cardiovascular Exam: REGULAR RHYTHM, +S1, +S2 - GI/Abdominal Exam GI & Abdominal Exam: Soft, Normal Bowel Sounds. absent: Tenderness - Neurological Exam Neurological Exam: Alert, Awake. absent: Oriented x3 Additional comments: Able to lift both arms and legs on command. Able to name objects and read time. Sensation intact. Aware that he is in [place], not in [place]. States he thinks that the month is August. No tremors noted. Able to communicate with family at bedside. - Skin Skin Exam: Dry, Intact, Warm Assessment and Plan - Assessment and Plan (Free Text) Plan: Anoxic brain injury, improved Encephalopathy -MRI Brain (04/05/18): Age related degenerative changes are reinterated which appear age-appropriate. No definite acute intracranial findingd by standard MR criteria. Motion infarcts limit the examination across numerous sequences in this exam. -Head CT (03/26/18): Limited study secondary to suboptimal patient positioning and technique. 1. 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 Further evaluation with CT angiogram of the head and neck is recommended for further evaluation. Additional etiologies are not excluded. In addition, correlation with MRI would also be helpful if clinically indicated. 2. Sinus mucosal disease as above. -Head CT (03/19/18): 9x11mm Right middle cerebral artery aneurysm -Head CT (03/22/18): Mild generalized volume loss. Previously noted right MCA aneurysm. -EEG (03/29/18): This is an abnormal 24 hour VEEG. The presence of diffuse spindles throughout the record as well as a poorly reactive low amplitude ba ckground indicates severe encephalopathy/coma state. The absence of epileptiform discharges during the EEG recording does not rule out the diagnosis of a seizure disorder. -Continue ASA -Continue Crestor -Continue Physical therapy, occupational therapy and speech therapy -Family is planning on taking patient back to [place]. Case discussed with Dr. Otto Shen, PGY1
[2018-04-13] MEDS: (Lantus) Insulin Glargine, Recombinant SC SCH (21:41)
[2018-04-14] MEDS: (Novolog) Insulin Aspart, Recombinant 100 u/ml 10 ml vial SC SCH ×4 (08:04→21:41)
--- NOTE | 2018-04-14 08:57 | CP.PCM.PN ---
<John Escoto - Last Filed: 04/14/18 13:12> Subjective - Date & Time of Evaluation Date of Evaluation: 04/14/18 Time of Evaluation: 08:57 - Subjective Subjective: PGY1 Medicine Progress Note for Dr. Dawson Patient evaluated and examined at bedside. No acute overnight events overnight. Patient's is at bedside and states the Patient is without complaints; Patient's daughter is still in the process of obtaining passport and travel accommodation for the Patient. Complete ROS is unobtainable due to Patient's clinical condition. Patient is verbally responsive and following commands. A&Ox1. Objective - Vital Signs/Intake and Output Vital Signs (last 24 hours): Temp Pulse Resp BP Pulse Ox 97.4 F L 76 20 120/89 98 04/14/18 08:30 04/14/18 08:30 04/14/18 08:30 04/14/18 08:30 04/14/18 08:30 Intake and Output: 04/14/18 04/14/18 06:59 18:59 Intake Total 800 Balance 800 - Medications Medications: Current Medications Acetaminophen (Tylenol 650 Mg Supp) 650 mg CO Q6 PRN PRN Reason: fever+pain Aspirin (Ecotrin) 81 mg PO DAILY [facility] Last Admin: 04/13/18 09:57 Dose: 81 mg Heparin Sodium (Porcine) (Heparin) 5,000 units SC Q8 [facility] Last Admin: 04/14/18 05:45 Dose: 5,000 units Insulin Aspart (Novolog) 0 unit SC [facility]; Protocol Last Admin: 04/14/18 08:04 Dose: Not Given Insulin Glargine (Lantus) 20 unit SC HS [facility] Last Admin: 04/13/18 21:41 Dose: 20 unit Losartan Potassium (Cozaar) 25 mg PO DAILY [facility] Last Admin: 04/13/18 11:00 Dose: 25 mg Metoprolol Tartrate (Lopressor) 5 mg IVP Q6 PRN PRN Reason: elevated blood pressure Last Admin: 03/31/18 06:09 Dose: 5 mg Metoprolol Tartrate (Lopressor) 25 mg PO BID [facility] Last Admin: 04/13/18 17:33 Dose: 25 mg Pantoprazole Sodium (Protonix Susp) 40 mg PO DAILY [facility] Last Admin: 04/13/18 09:57 Dose: 40 mg Prednisone (Prednisone Tab) 10 mg PO DAILY [facility] Stop: 04/17/18 10:01 Last Admin: 04/13/18 09:57 Dose: 10 mg Rosuvastatin Calcium (Crestor) 10 mg PO HS [facility] Last Admin: 04/13/18 21:36 Dose: 10 mg Zolpidem Tartrate (Ambien) 5 mg PO HS PRN PRN Reason: Insomnia Last Admin: 04/12/18 22:13 Dose: 5 mg - Labs Labs: 04/13/18 11:28 04/13/18 11:28 PT 12.9 SECONDS (9.7-12.2) H 03/21/18 04:41 INR 1.2 03/21/18 04:41 APTT 51 SECONDS (21-34) H 03/24/18 06:35 - Additional Findings Additional findings: - Constitutional Appears: Non-toxic, Other (lethargic) - Head Exam Head Exam: ATRAUMATIC, NORMAL INSPECTION, NORMOCEPHALIC - Eye Exam Eye Exam: EOMI, Normal appearance. absent: Nystagmus Pupil Exam: PERRL - ENT Exam ENT Exam: Mucous Membranes Moist, Normal Exam - Neck Exam Neck Exam: Normal Inspection - Respiratory Exam Respiratory Exam: Clear to Ausculation Bilateral, NORMAL BREATHING PATTERN - Cardiovascular Exam Cardiovascular Exam: REGULAR RHYTHM, +S1, +S2 - GI/Abdominal Exam GI & Abdominal Exam: Soft, Normal Bowel Sounds (peg tube clamped beneath abdominal binder. Insertion site clean, no erythema/drainage). absent: Distended - Extremities Exam Extremities Exam: Normal Inspection (muscle wasting). absent: Pedal Edema - Neurological Exam Neurological Exam: Altered (intentionally unresponsive, prefers to sleep) ROM within normal limits for lower extremities bilaterally Muscle strength 4/5 bilaterally in upper and lower extremities. - Skin Skin Exam: Dry, Intact, Normal Color (ecchymosis, b/l UE), Warm Assessment and Plan - Assessment and Plan (Free Text) Assessment: 67 yo male with pmhx of pulmonary fibrosis, COPD, HTN, and DM2 admitted for treatment of AMS s/p cardiac arrest. Pending PT evaluation; able to get out of bed to chair with assistance. Patient's ROM is improving in lower extremities bilaterally. Patient is eating home-made foods prepared by family and is tolerating well. Plan: AMS - 24h EEG 03/29-03/30: severe encephalopathy/coma state - Neurology consulted, Dr. Menjivar/Pierre; recommendations appreciated - ID consulted, Dr. Reddy - Surgery consulted, Dr. Morales - Palliative care consulted, Jessica Valdez - PT/OT/ST - Continue ambien 5mg hs s/p Cardiac Arrest - Continue ASA 81mg - Continue Crestor 10 mg - Continue Duoneb Q6H - Cardiology consulted (Moira/Yury/Brina) - Pulmonology consulted (Martin) Pulmonary fibrosis, chronic, severe - CT chest: centrilobular emphysema and upper lobe pulmonary fibrosis - O2 NC - Continue Prednisone taper - Pulmonology consulted, Dr. Salaazr; recommendations appreciated Type 2 diabetes mellitus, chronic - Accuchecks ACHS - Hypoglycemic protocol - ISS- medium - Continue Lantus 20 units SC QHS Nutrition - Dietitian calorie count in place - Soft diet with ensure supplements Hypertension, controlled - Cozaar 25mg - Lopressor 25 mg BID - Lopressor 5 mg IVP Q6H PRN, with holding parameters Ppx: VTE: restart heparin 5000 q8, SCDs GI: Protonix 40mg IV daily Encourage PT Patient seen and case discussed in detail with Dr. Eunice Escoto PGY1 <Lynette Dawson - Last Filed: 04/14/18 18:02> Objective - Vital Signs/Intake and Output Vital Signs (last 24 hours): Temp Pulse Resp BP Pulse Ox 97.4 F L 76 20 120/89 98 04/14/18 08:30 04/14/18 08:30 04/14/18 08:30 04/14/18 09:59 04/14/18 08:30 Intake and Output: 04/14/18 04/14/18 06:59 18:59 Intake Total 800 480 Balance 800 480 - Medications Medications: Current Medications Aspirin (Ecotrin) 81 mg PO DAILY [facility] Last Admin: 04/14/18 09:59 Dose: 81 mg Heparin Sodium (Porcine) (Heparin) 5,000 units SC Q8 [facility] Last Admin: 04/14/18 13:37 Dose: 5,000 units Insulin Aspart (Novolog) 0 unit SC ACHS [facility]; Protocol Last Admin: 04/14/18 12:22 Dose: 6 units Insulin Glargine (Lantus) 20 unit SC HS [facility] Last Admin: 04/13/18 21:41 Dose: 20 unit Losartan Potassium (Cozaar) 25 mg PO DAILY [facility] Last Admin: 04/14/18 09:59 Dose: 25 mg Metoprolol Tartrate (Lopressor) 5 mg IVP Q6 PRN PRN Reason: elevated blood pressure Last Admin: 03/31/18 06:09 Dose: 5 mg Metoprolol Tartrate (Lopressor) 25 mg PO BID [facility] Last Admin: 04/14/18 09:59 Dose: 25 mg Pantoprazole Sodium (Protonix Susp) 40 mg PO DAILY [facility] Last Admin: 04/14/18 09:59 Dose: 40 mg Prednisone (Prednisone Tab) 10 mg PO DAILY [facility] Stop: 04/17/18 10:01 Last Admin: 04/14/18 09:59 Dose: 10 mg Rosuvastatin Calcium (Crestor) 10 mg PO HS [facility] Last Admin: 04/13/18 21:36 Dose: 10 mg Zolpidem Tartrate (Ambien) 5 mg PO HS PRN PRN Reason: Insomnia Last Admin: 04/12/18 22:13 Dose: 5 mg - Labs Labs: 04/14/18 11:31 04/14/18 11:31 PT 12.9 SECONDS (9.7-12.2) H 03/21/18 04:41 INR 1.2 03/21/18 04:41 APTT 51 SECONDS (21-34) H 03/24/18 06:35 Attending/Attestation - Attestation I have personally seen and examined this patient.: Yes I have fully participated in the care of the patient.: Yes I have reviewed all pertinent clinical information, including history, physical exam and plan: Yes Notes (Text): Seen and examined. patient is sitting on the chair comfortable. confused spoke to his at bedside.Patient is eating ok . no sob monitor sugar,continue Lantus and taper prednisone continue asprin,Lopressor,crestor and cozaar
[2018-04-14] MEDS: Pantoprazole 40 mg Susp UD PO SCH (09:59)
[2018-04-14 11:49] LABS: BASO % 0.2 % (0.0-2.0); EOS # 0.5 K/uL (0.0-0.7); EOS % 3.5 % (0.0-4.0); HEMOGLOBIN 12.2 g/dL (12.0-18.0); LYMPH # 0.9 K/uL (1.0-4.3); LYMPH % 6.7 % (20.0-40.0); MEAN CELL VOLUME 90.9 fL (80.0-94.0); MEAN CORPUSCULAR HEMOGLOBIN 29.1 pg (27.0-31.0); MONO # 0.4 K/uL (0.0-0.8); MONO % 3.4 % (0.0-10.0); NEUT # 11.4 K/uL (1.8-7.0); NEUT % 86.2 % (50.0-75.0); PLATELET COUNT 136 K/uL (130-400); RBC 4.19 Mil/uL (4.40-5.90); RED CELL DISTRIBUTION WIDTH 14.6 % (11.5-14.5); WHITE BLOOD COUNT 13.3 K/uL (4.8-10.8)
[2018-04-14 12:15] LABS: ALBUMIN 2.9 g/dL (3.5-5.0); ALT/SGPT 36 U/L (21-72); AST/SGOT 32 U/L (17-59); BLOOD UREA NITROGEN 25 mg/dL (9-20); CALCIUM 8.6 mg/dl (8.6-10.4); GFR NON-AFRICAN AMERICAN > 60
[2018-04-14 12:19] LABS: EOSINOPHIL 3 % (0-4); LYMPHOCYTE 2 % (20-40); NEUTROPHIL 95 % (50-75); PLATELET ESTIMATE NORMAL (NORMAL); TOTAL CELLS COUNTED 100
--- NOTE | 2018-04-14 12:24 | CP.PCM.PN ---
Subjective - Date & Time of Evaluation Date of Evaluation: 04/14/18 Time of Evaluation: 12:23 - Subjective Subjective: Neurology progress note Objective - Vital Signs/Intake and Output Vital Signs (last 24 hours): Temp Pulse Resp BP Pulse Ox 97.4 F L 76 20 120/89 98 04/14/18 08:30 04/14/18 08:30 04/14/18 08:30 04/14/18 09:59 04/14/18 08:30 Intake and Output: 04/14/18 04/14/18 06:59 18:59 Intake Total 800 Balance 800 - Medications Medications: Current Medications Aspirin (Ecotrin) 81 mg PO DAILY [facility] Last Admin: 04/14/18 09:59 Dose: 81 mg Heparin Sodium (Porcine) (Heparin) 5,000 units SC Q8 [facility] Last Admin: 04/14/18 05:45 Dose: 5,000 units Insulin Aspart (Novolog) 0 unit SC ACHS [facility]; Protocol Last Admin: 04/14/18 12:22 Dose: 6 units Insulin Glargine (Lantus) 20 unit SC HS [facility] Last Admin: 04/13/18 21:41 Dose: 20 unit Losartan Potassium (Cozaar) 25 mg PO DAILY [facility] Last Admin: 04/14/18 09:59 Dose: 25 mg Metoprolol Tartrate (Lopressor) 5 mg IVP Q6 PRN PRN Reason: elevated blood pressure Last Admin: 03/31/18 06:09 Dose: 5 mg Metoprolol Tartrate (Lopressor) 25 mg PO BID [facility] Last Admin: 04/14/18 09:59 Dose: 25 mg Pantoprazole Sodium (Protonix Susp) 40 mg PO DAILY [facility] Last Admin: 04/14/18 09:59 Dose: 40 mg Prednisone (Prednisone Tab) 10 mg PO DAILY [facility] Stop: 04/17/18 10:01 Last Admin: 04/14/18 09:59 Dose: 10 mg Rosuvastatin Calcium (Crestor) 10 mg PO HS [facility] Last Admin: 04/13/18 21:36 Dose: 10 mg Zolpidem Tartrate (Ambien) 5 mg PO HS PRN PRN Reason: Insomnia Last Admin: 04/12/18 22:13 Dose: 5 mg - Labs Labs: 04/14/18 11:31 04/14/18 11:31 PT 12.9 SECONDS (9.7-12.2) H 03/21/18 04:41 INR 1.2 03/21/18 04:41 APTT 51 SECONDS (21-34) H 03/24/18 06:35
[2018-04-14] MEDS: (Lantus) Insulin Glargine, Recombinant SC SCH (21:40)
[2018-04-15 07:15] LABS: ALT/SGPT 34 U/L (21-72); AST/SGOT 31 U/L (17-59); BASO # 0.1 K/uL (0.0-0.2); BLOOD UREA NITROGEN 22 mg/dL (9-20); CALCIUM 8.8 mg/dl (8.6-10.4); EOS # 0.4 K/uL (0.0-0.7); EOS % 2.6 % (0.0-4.0); GFR NON-AFRICAN AMERICAN > 60; HEMOGLOBIN 11.8 g/dL (12.0-18.0); LYMPH % 7.2 % (20.0-40.0); MEAN CELL VOLUME 91.6 fL (80.0-94.0); MEAN CORPUSCULAR HEMOGLOBIN 29.3 pg (27.0-31.0); MEAN PLATELET VOLUME 10.3 fL (7.2-11.7); MONO # 0.4 K/uL (0.0-0.8); MONO % 2.8 % (0.0-10.0); NEUT # 12.1 K/uL (1.8-7.0); NEUT % 86.4 % (50.0-75.0); NRBC % 0.1 % (0.0-2.0); PLATELET COUNT 147 K/uL (130-400); RBC 4.01 Mil/uL (4.40-5.90); RED CELL DISTRIBUTION WIDTH 14.9 % (11.5-14.5)
--- NOTE | 2018-04-15 07:45 | CP.PCM.PN ---
<DukeKae harrison - Last Filed: 04/15/18 16:19> Subjective - Date & Time of Evaluation Date of Evaluation: 04/15/18 Time of Evaluation: 14:14 - Subjective Subjective: PGY-1 Medicine Progress note for Dr. Dawson's service S/E at bedside. Limited ROS 2/2 anoxic brain injury. Family at bedside wanted pe g tube removal and sugars better controlled. Family was instructed if calorie count is sufficient and patient eating consistently the amount of calories necessary, consider possible removal next week. Objective - Vital Signs/Intake and Output Vital Signs (last 24 hours): Temp Pulse Resp BP Pulse Ox 97.3 F L 90 20 140/73 94 L 04/15/18 00:00 04/15/18 00:00 04/15/18 00:00 04/15/18 00:00 04/15/18 00:00 Intake and Output: 04/15/18 04/15/18 06:59 18:59 Intake Total 300 Balance 300 - Medications Medications: Current Medications Aspirin (Ecotrin) 81 mg PO DAILY [facility] Last Admin: 04/14/18 09:59 Dose: 81 mg Heparin Sodium (Porcine) (Heparin) 5,000 units SC Q8 [facility] Last Admin: 04/15/18 05:55 Dose: 5,000 units Insulin Aspart (Novolog) 0 unit SC [facility]; Protocol Last Admin: 04/14/18 21:41 Dose: 4 units Insulin Glargine (Lantus) 20 unit SC [facility] Last Admin: 04/14/18 21:40 Dose: 20 unit Losartan Potassium (Cozaar) 25 mg PO DAILY [facility] Last Admin: 04/14/18 09:59 Dose: 25 mg Metoprolol Tartrate (Lopressor) 5 mg IVP Q6 PRN PRN Reason: elevated blood pressure Last Admin: 03/31/18 06:09 Dose: 5 mg Metoprolol Tartrate (Lopressor) 25 mg PO BID [facility] Last Admin: 04/14/18 17:43 Dose: 25 mg Pantoprazole Sodium (Protonix Susp) 40 mg PO DAILY [facility] Last Admin: 04/14/18 09:59 Dose: 40 mg Prednisone (Prednisone Tab) 10 mg PO DAILY [facility] Stop: 04/17/18 10:01 Last Admin: 04/14/18 09:59 Dose: 10 mg Rosuvastatin Calcium (Crestor) 10 mg PO [facility] Last Admin: 04/14/18 21:40 Dose: 10 mg Zolpidem Tartrate (Ambien) 5 mg PO HS PRN PRN Reason: Insomnia Last Admin: 04/15/18 01:05 Dose: 5 mg - Labs Labs: 04/15/18 06:53 04/15/18 06:53 PT 12.9 SECONDS (9.7-12.2) H 03/21/18 04:41 INR 1.2 03/21/18 04:41 APTT 51 SECONDS (21-34) H 03/24/18 06:35 - Constitutional Appears: Non-toxic - Head Exam Head Exam: NORMAL INSPECTION, NORMOCEPHALIC - Eye Exam Eye Exam: EOMI, Normal appearance. absent: Nystagmus, Scleral icterus - ENT Exam ENT Exam: Mucous Membranes Moist, Normal Exam - Respiratory Exam Respiratory Exam: Clear to Ausculation Bilateral, NORMAL BREATHING PATTERN. abs ent: Rales, Rhonchi, Wheezes - Cardiovascular Exam Cardiovascular Exam: REGULAR RHYTHM, +S1, +S2. absent: Tachycardia - GI/Abdominal Exam GI & Abdominal Exam: Soft, Normal Bowel Sounds. absent: Distended, Firm, Guarding, Rigid, Tenderness Additional comments: peg tube clamped beneath abdominal binder. Insertion site clean, no erythema/drainage - Extremities Exam Extremities Exam: Normal Inspection. absent: Calf Tenderness, Pedal Edema - Neurological Exam Neurological Exam: Awake - Psychiatric Exam Psychiatric exam: Normal Affect, Normal Mood - Skin Skin Exam: Dry, Intact, Normal Color Assessment and Plan - Assessment and Plan (Free Text) Assessment: 67 yo male with pmhx of pulmonary fibrosis, COPD, HTN, and DM2 admitted for treatment of AMS s/p cardiac arrest. PT recommends [facility]. AMS etiology likely related to cardiac arrest on admission Neurology consulted, Dr. Menjivar/Pierre; recommendations appreciated ID consulted, Dr. Reddy Surgery consulted, Dr. Morales Palliative care consulted, Jessica Valdez 24h EEG 03/29-03/30: severe encephalopathy/coma state PT/OT/ST Continue ambien 5mg hs PEG tube was placed 2/2 to AMS and patient unable to pass swallow eval s/p Cardiac Arrest Cardiology consulted (Moira/Yury/Brina) Pulmonology consulted (Martin) ASA 81mg Crestor 10 mg Duoneb Q6H Pulmonary fibrosis, chronic, severe Pulmonology consulted, Dr. Salazar; recommendations appreciated CT chest: centrilobular emphysema and upper lobe pulmonary fibrosis O2 NC Prednisone 10mg po daily- possibly continue upon discharge Type 2 diabetes mellitus, chronic uncontrolled with elevated sugars mid day and low sugars in AM adjust as needed to control sugars better Accuchecks ACHS Hypoglycemic protocol ISS Aspart- ACHS Lantus 10 units SC ACB Glucotrol 2.5mg po ACL Metformin 500mg po bidcc Nutrition Dietitian calorie count in place Swallow eval cleared patient for pureed diet consider peg tube removal in setting of consistent caloric intake, patients daughter states she will monitor as well Hypertension, controlled Cozaar 25mg Lopressor 25 mg BID Lopressor 5 mg IVP Q6H PRN, with holding parameters Ppx: VTE: restart heparin 5000 q8, SCDs GI: Protonix 40mg IV daily Encourage PT Disposition: PT recommends [facility], caloric count for possible PEG tube removal, continue prednisone in setting of elevated sugars as per pulmonolgy team, adjust DM2 meds for better control Case d/w Dr. Merlene Wall PGY1 <Lynette Dawson - Last Filed: 04/16/18 13:02> Objective - Vital Signs/Intake and Output Vital Signs (last 24 hours): Temp Pulse Resp BP Pulse Ox 97.5 F L 118 H 20 112/68 97 04/15/18 16:00 04/15/18 16:00 04/15/18 16:00 04/15/18 16:00 04/15/18 16:00 Intake and Output: 04/15/18 04/15/18 06:59 18:59 Intake Total 300 480 Balance 300 480 - Medications Medications: Current Medications Aspirin (Ecotrin) 81 mg PO DAILY [facility] Last Admin: 04/15/18 09:33 Dose: 81 mg Glipizide (Glucotrol) 2.5 mg PO ACL [facility] Last Admin: 04/15/18 12:29 Dose: 2.5 mg Heparin Sodium (Porcine) (Heparin) 5,000 units SC Q8 [facility] Last Admin: 04/15/18 14:47 Dose: 5,000 units Insulin Aspart (Novolog) 0 unit SC ACHS [facility]; Protocol Last Admin: 04/15/18 12:29 Dose: 8 units Insulin Glargine (Lantus) 10 unit SC [facility] Losartan Potassium (Cozaar) 25 mg PO DAILY [facility] Last Admin: 04/15/18 09:33 Dose: 25 mg Metformin HCl (Glucophage) 500 mg PO BIDCC [facility] Last Admin: 04/15/18 09:30 Dose: 500 mg Metoprolol Tartrate (Lopressor) 5 mg IVP Q6 PRN PRN Reason: elevated blood pressure Last Admin: 03/31/18 06:09 Dose: 5 mg Metoprolol Tartrate (Lopressor) 25 mg PO BID [facility] Last Admin: 04/15/18 09:34 Dose: 25 mg Pantoprazole Sodium (Protonix Susp) 40 mg PO DAILY [facility] Last Admin: 04/15/18 09:33 Dose: 40 mg Prednisone (Prednisone Tab) 10 mg PO DAILY [facility] Rosuvastatin Calcium (Crestor) 10 mg PO HS [facility] Last Admin: 04/14/18 21:40 Dose: 10 mg Zolpidem Tartrate (Ambien) 5 mg PO HS PRN PRN Reason: Insomnia Last Admin: 04/15/18 01:05 Dose: 5 mg - Labs Labs: 04/15/18 06:53 04/15/18 06:53 PT 12.9 SECONDS (9.7-12.2) H 03/21/18 04:41 INR 1.2 03/21/18 04:41 APTT 51 SECONDS (21-34) H 03/24/18 06:35 Attending/Attestation - Attestation I have personally seen and examined this patient.: Yes I have fully participated in the care of the patient.: Yes I have reviewed all pertinent clinical information, including history, physical exam and plan: Yes Notes (Text): seen and examined by me. patient is sitting on the chair,confused,awake and oriented no sob,no cough,tolerating soft diet,His sugar is high in the evenings and low in the mornings. He is on prednisone 10mg daily spoke to daughter. Not having diabetic diet. Daughter is going to watch his diet Discussed with Dr Salazar who thinks patient should be on prednisone 10mg daily . we will discharge him on prednisone daily. Monitor sugar Add oral hypoglycemic meds
[2018-04-15] MEDS: (Novolog) Insulin Aspart, Recombinant 100 u/ml 10 ml vial SC SCH ×4 (08:01→22:19)
[2018-04-15 08:20] LABS: EOSINOPHIL 1 % (0-4); LYMPHOCYTE 3 % (20-40); MONOCYTE 4 % (0-10); NEUTROPHIL 92 % (50-75); PLATELET ESTIMATE NORMAL (NORMAL); TOTAL CELLS COUNTED 100
[2018-04-15 08:21] LABS: HYPOCHROMIC SLIGHT; POLYCHROMIC SLIGHT
[2018-04-15] MEDS: Pantoprazole 40 mg Susp UD PO SCH (09:33)
[2018-04-15] MEDS ORDERED: GlipiZIDE 2.5 mg Tab PO SCH (11:30)
[2018-04-16 07:02] LABS: ALBUMIN 3.1 g/dL (3.5-5.0); ALT/SGPT 39 U/L (21-72); AST/SGOT 28 U/L (17-59); BLOOD UREA NITROGEN 24 mg/dL (9-20); CALCIUM 8.9 mg/dl (8.6-10.4); GFR NON-AFRICAN AMERICAN > 60
--- NOTE | 2018-04-16 07:14 | CP.PCM.PN ---
Subjective - Date & Time of Evaluation Date of Evaluation: 04/16/18 Time of Evaluation: 07:14 - Subjective Subjective: PGY1 Medicine Progress Note for Dr. Dawson Patient evaluated and examined at bedside. No acute overnight events overnight. Patient's is at bedside and states the Patient is without complaints; Patient's daughter is still in the process of obtaining passport and travel accommodation for the Patient. Complete ROS is unobtainable due to Patient's clinical condition/anoxic brain injur. Family at bedside feeding Patient juice. Patient is verbally responsive and following commands. A&Ox1. Objective - Vital Signs/Intake and Output Vital Signs (last 24 hours): Temp Pulse Resp BP Pulse Ox 98.0 F 73 20 111/82 96 04/16/18 00:00 04/16/18 00:00 04/16/18 00:00 04/16/18 00:00 04/16/18 00:00 Intake and Output: 04/16/18 04/16/18 06:59 18:59 Intake Total 200 Balance 200 - Medications Medications: Current Medications Aspirin (Ecotrin) 81 mg PO DAILY [facility] Last Admin: 04/15/18 09:33 Dose: 81 mg Glipizide (Glucotrol) 2.5 mg PO ACL [facility] Last Admin: 04/15/18 12:29 Dose: 2.5 mg Heparin Sodium (Porcine) (Heparin) 5,000 units SC Q8 [facility] Last Admin: 04/16/18 05:50 Dose: 5,000 units Insulin Aspart (Novolog) [address] [facility]; Protocol Last Admin: 04/15/18 22:19 Dose: 3 units Insulin Glargine (Lantus) 10 unit SC ACB [facility] Losartan Potassium (Cozaar) 25 mg PO DAILY [facility] Last Admin: 04/15/18 09:33 Dose: 25 mg Metformin HCl (Glucophage) 500 mg PO BIDCC [facility] Last Admin: 04/15/18 18:14 Dose: 500 mg Metoprolol Tartrate (Lopressor) 5 mg IVP Q6 PRN PRN Reason: elevated blood pressure Last Admin: 03/31/18 06:09 Dose: 5 mg Metoprolol Tartrate (Lopressor) 25 mg PO BID [facility] Last Admin: 04/15/18 18:15 Dose: 25 mg Pantoprazole Sodium (Protonix Susp) 40 mg PO DAILY [facility] Last Admin: 04/15/18 09:33 Dose: 40 mg Prednisone (Prednisone Tab) 10 mg PO DAILY [facility] Rosuvastatin Calcium (Crestor) 10 mg PO HS [facility] Last Admin: 04/15/18 22:17 Dose: 10 mg Zolpidem Tartrate (Ambien) 5 mg PO HS PRN PRN Reason: Insomnia Last Admin: 04/15/18 01:05 Dose: 5 mg - Labs Labs: 04/15/18 06:53 04/16/18 06:33 PT 12.9 SECONDS (9.7-12.2) H 03/21/18 04:41 INR 1.2 03/21/18 04:41 APTT 51 SECONDS (21-34) H 03/24/18 06:35 - Additional Findings Additional findings: - Constitutional Appears: Non-toxic, Other (lethargic) - Head Exam Head Exam: ATRAUMATIC, NORMAL INSPECTION, NORMOCEPHALIC - Eye Exam Eye Exam: EOMI, Normal appearance. absent: Nystagmus Pupil Exam: PERRL - ENT Exam ENT Exam: Mucous Membranes Moist, Normal Exam - Neck Exam Neck Exam: Normal Inspection - Respiratory Exam Respiratory Exam: Clear to Ausculation Bilateral, NORMAL BREATHING PATTERN - Cardiovascular Exam Cardiovascular Exam: REGULAR RHYTHM, +S1, +S2 - GI/Abdominal Exam GI & Abdominal Exam: Soft, Normal Bowel Sounds (peg tube clamped beneath abdominal binder. Insertion site clean, no erythema/drainage). absent: Distended - Extremities Exam Extremities Exam: Normal Inspection (muscle wasting). absent: Pedal Edema - Neurological Exam Neurological Exam: Altered (intentionally unresponsive, prefers to sleep) Passive ROM within normal limits for lower extremities bilaterally Muscle strength 4/5 bilaterally in upper and lower extremities. - Skin Skin Exam: Dry, Intact, Normal Color (ecchymosis, b/l UE), Warm Assessment and Plan - Assessment and Plan (Free Text) Assessment: 67 yo male with pmhx of pulmonary fibrosis, COPD, HTN, and DM2 admitted for treatment of AMS s/p cardiac arrest. Pending PT evaluation; able to get out of bed to chair with assistance. Patient's ROM is improving in lower extremities bilaterally. Patient is eating home-made foods prepared by family and is tolerating well. PT recommends [facility], However the Patient's family is planning on returning with the Patient back to [facility]. Continue prednisone in setting of elevated sugars as per pulmonolgy team, adjust DM2 meds for better control. Recommend continued speech PT/OT while in [place]. Educated family on diet control due to persistently elevated sugars in the setting of prednisone use. Plan: AMS - 24h EEG 03/29-03/30: severe encephalopathy/coma state - Neurology consulted, Dr. Menjivar/Pierre; recommendations appreciated - ID consulted, Dr. Reddy - Surgery consulted, Dr. Morales - Palliative care consulted, Jessica Valdez - PT/OT/ST - Continue ambien 5mg hs s/p Cardiac Arrest - Continue ASA 81mg - Continue Crestor 10 mg - Continue Duoneb Q6H - Cardiology consulted (Moira/Yury/Brina) - Pulmonology consulted (Martin) Pulmonary fibrosis, chronic, severe - CT chest: centrilobular emphysema and upper lobe pulmonary fibrosis - O2 NC - Continue Prednisone taper - Pulmonology consulted, Dr. Salazar; recommendations appreciated Type 2 diabetes mellitus, chronic - Accuchecks ACHS - Hypoglycemic protocol - ISS- medium - Continue Lantus 20 units SC QHS - Metformin 500mg PO BID started - Januvia 100mg PO Daily started Nutrition - Dietitian calorie count in place - Discuss with family to decrease sugary beverages and foods due to hyperglycemia Hypertension, controlled - Cozaar 25mg - Lopressor 25 mg BID - Lopressor 5 mg IVP Q6H PRN, with holding parameters Ppx: VTE: restart heparin 5000 q8, SCDs GI: Protonix 40mg IV daily Encourage PT Disposition: PT recommends [facility], However the Patient's family is planning on returning with the Patient back to [facility]. Continue prednisone in setting of elevated sugars as per pulmonolgy team, adjust DM2 meds for better control. Recommend continued speech PT/OT while in [place]. Educated family on diet control due to persistently elevated sugars in the setting of prednisone use. Patient seen and case discussed in detail with Dr. Eunice Escoto PGY1
[2018-04-16 07:17] LABS: BASO % 0.3 % (0.0-2.0); EOS # 0.3 K/uL (0.0-0.7); EOS % 2.8 % (0.0-4.0); HEMOGLOBIN 12.7 g/dL (12.0-18.0); LYMPH % 8.3 % (20.0-40.0); MEAN CELL VOLUME 91.1 fL (80.0-94.0); MEAN CORPUSCULAR HEMOGLOBIN 29.5 pg (27.0-31.0); MEAN CORPUSCULAR HGB CONC 32.4 g/dL (33.0-37.0); MEAN PLATELET VOLUME 10.1 fL (7.2-11.7); MONO # 0.3 K/uL (0.0-0.8); MONO % 2.7 % (0.0-10.0); NEUT # 10.1 K/uL (1.8-7.0); NEUT % 85.9 % (50.0-75.0); PLATELET COUNT 159 K/uL (130-400); RBC 4.29 Mil/uL (4.40-5.90); RED CELL DISTRIBUTION WIDTH 14.6 % (11.5-14.5); WHITE BLOOD COUNT 11.8 K/uL (4.8-10.8)
[2018-04-16] MEDS ORDERED: (Lantus) Insulin Glargine, Recombinant SC SCH (07:30)
[2018-04-16] MEDS ORDERED: GlipiZIDE 2.5 mg Tab PO SCH (07:30)
[2018-04-16] MEDS: (Novolog) Insulin Aspart, Recombinant 100 u/ml 10 ml vial SC SCH ×4 (07:46→21:39)
[2018-04-16] MEDS: (Lantus) Insulin Glargine, Recombinant SC SCH (07:46)
[2018-04-16 08:43] LABS: LYMPHOCYTE 14 % (20-40); MONOCYTE 1 % (0-10); NEUTROPHIL 85 % (50-75); TOTAL CELLS COUNTED 100
[2018-04-16 08:44] LABS: PLATELET ESTIMATE NORMAL (NORMAL)
[2018-04-16] MEDS: Pantoprazole 40 mg Susp UD PO SCH (09:04)
--- NOTE | 2018-04-17 01:10 | CP.PCM.PN ---
<Juan Luis Alvarez - Last Filed: 04/17/18 01:07> Subjective - Date & Time of Evaluation Date of Evaluation: 04/17/18 Time of Evaluation: 01:07 - Subjective Subjective: HOSPITALIST SERVICE Pt seen and examined at bedside, 12 point ROS unable to obtain due to anoxic brain injury, follows some commands. no acute events overnight as per nursing Objective - Vital Signs/Intake and Output Vital Signs (last 24 hours): Temp Pulse Resp BP Pulse Ox 98.1 F 92 H 20 130/76 95 04/16/18 08:52 04/16/18 08:52 04/16/18 08:52 04/16/18 17:55 04/16/18 08:52 Intake and Output: 04/16/18 04/17/18 18:59 06:59 Intake Total 800 400 Balance 800 400 - Medications Medications: Current Medications Aspirin (Ecotrin) 81 mg PO DAILY [facility] Last Admin: 04/16/18 09:04 Dose: 81 mg Heparin Sodium (Porcine) (Heparin) 5,000 units SC Q8 [facility] Last Admin: 04/16/18 21:39 Dose: 5,000 units Insulin Aspart (Novolog) 0 unit SC [facility]; Protocol Last Admin: 04/16/18 21:39 Dose: 4 units Insulin Glargine (Lantus) 10 unit SC ACB [facility] Last Admin: 04/16/18 07:46 Dose: 10 units Losartan Potassium (Cozaar) 25 mg PO DAILY [facility] Last Admin: 04/16/18 09:04 Dose: 25 mg Metformin HCl (Glucophage) 500 mg PO BIDCC [facility] Last Admin: 04/16/18 17:54 Dose: 500 mg Metoprolol Tartrate (Lopressor) 5 mg IVP Q6 PRN PRN Reason: elevated blood pressure Last Admin: 03/31/18 06:09 Dose: 5 mg Metoprolol Tartrate (Lopressor) 25 mg PO BID [facility] Last Admin: 04/16/18 17:55 Dose: 25 mg Pantoprazole Sodium (Protonix Susp) 40 mg PO DAILY [facility] Last Admin: 04/16/18 09:04 Dose: 40 mg Prednisone (Prednisone Tab) 10 mg PO DAILY [facility] Last Admin: 04/16/18 09:04 Dose: 10 mg Rosuvastatin Calcium (Crestor) 10 mg PO HS [facility] Last Admin: 04/16/18 21:40 Dose: 10 mg Sitagliptin Phosphate (Januvia) 100 mg PO DAILY [facility] Zolpidem Tartrate (Ambien) 5 mg PO HS PRN PRN Reason: Insomnia Last Admin: 04/17/18 00:30 Dose: 5 mg - Labs Labs: 04/16/18 06:33 04/16/18 06:33 PT 12.9 SECONDS (9.7-12.2) H 03/21/18 04:41 INR 1.2 03/21/18 04:41 APTT 51 SECONDS (21-34) H 03/24/18 06:35 - Additional Findings Additional findings: - Constitutional Appears: Non-toxic, Other (lethargic) - Head Exam Head Exam: ATRAUMATIC, NORMAL INSPECTION, NORMOCEPHALIC - Eye Exam Eye Exam: EOMI, Normal appearance. absent: Nystagmus Pupil Exam: PERRL - ENT Exam ENT Exam: Mucous Membranes Moist, Normal Exam - Neck Exam Neck Exam: Normal Inspection - Respiratory Exam Respiratory Exam: Clear to Ausculation Bilateral, NORMAL BREATHING PATTERN - Cardiovascular Exam Cardiovascular Exam: REGULAR RHYTHM, +S1, +S2 - GI/Abdominal Exam GI & Abdominal Exam: Soft, Normal Bowel Sounds (peg tube clamped beneath abdominal binder. Insertion site clean, no erythema/drainage). absent: Dis tended - Extremities Exam Extremities Exam: Normal Inspection (muscle wasting). absent: Pedal Edema - Neurological Exam Neurological Exam: Altered (intentionally unresponsive, prefers to sleep) Passive ROM within normal limits for lower extremities bilaterally Muscle strength 4/5 bilaterally in upper and lower extremities. - Skin Skin Exam: Dry, Intact, Normal Color (ecchymosis, b/l UE), Warm Assessment and Plan - Assessment and Plan (Free Text) Assessment: 67 yo male with pmhx of pulmonary fibrosis, COPD, HTN, and DM2 admitted for treatment of AMS s/p cardiac arrest. Pending PT evaluation; able to get out of bed to chair with assistance. Patient's ROM is improving in lower extremities bilaterally. Patient is eating home-made foods prepared by family and is tolerating well. PT recommends [facility], However the Patient's family is planning on returning with the Patient back to [facility]. Continue prednisone in setting of elevated sugars as per pulmonolgy team, adjust DM2 meds for better control. Recommend continued speech PT/OT while in [place]. Educated family on diet control due to persistently elevated sugars in the setting of prednisone use. Plan: AMS - 24h EEG 03/29-03/30: severe encephalopathy/coma state - Neurology consulted, Dr. Menjivar/Pierre; recommendations appreciated - ID consulted, Dr. Reddy - Surgery consulted, Dr. Morales - Palliative care consulted, Jessica Valdez - PT/OT/ST - Continue ambien 5mg hs s/p Cardiac Arrest - Continue ASA 81mg - Continue Crestor 10 mg - Continue Duoneb Q6H - Cardiology consulted (Moira/Yury/Brina) - Pulmonology consulted (Martin) Pulmonary fibrosis, chronic, severe - CT chest: centrilobular emphysema and upper lobe pulmonary fibrosis - O2 NC - Continue Prednisone taper - Pulmonology consulted, Dr. Salazar; recommendations appreciated Type 2 diabetes mellitus, chronic - Accuchecks ACHS - Hypoglycemic protocol - ISS- medium - Continue Lantus 20 units SC QHS - Metformin 500mg PO BID started - Januvia 100mg PO Daily started Nutrition - Dietitian calorie count in place - Discuss with family to decrease sugary beverages and foods due to hyperglycemia Hypertension, controlled - Cozaar 25mg - Lopressor 25 mg BID - Lopressor 5 mg IVP Q6H PRN, with holding parameters Ppx: VTE: restart heparin 5000 q8, SCDs GI: Protonix 40mg IV daily Encourage PT Disposition: PT recommends [facility], However the Patient's family is planning on returning with the Patient back to [facility]. Continue prednisone in setting of elevated sugars as per pulmonolgy team, adjust DM2 meds for better control. Recommend continued speech PT/OT while in [facility]. Educated family on diet control due to persistently elevated sugars in the setting of prednisone use. <Petar Mejia - Last Filed: 04/17/18 19:36> Objective - Vital Signs/Intake and Output Vital Signs (last 24 hours): Temp Pulse Resp BP Pulse Ox 97.4 F L 64 20 135/78 96 04/17/18 16:00 04/17/18 16:00 04/17/18 16:00 04/17/18 17:30 04/17/18 16:00 - Medications Medications: Current Medications Aspirin (Ecotrin) 81 mg PO DAILY [facility] Last Admin: 04/17/18 09:31 Dose: 81 mg Heparin Sodium (Porcine) (Heparin) 5,000 units SC Q8 [facility] Last Admin: 04/17/18 13:40 Dose: 5,000 units Insulin Aspart (Novolog) 0 unit SC ACHS [facility]; Protocol Last Admin: 04/17/18 17:31 Dose: 8 units Insulin Glargine (Lantus) 10 unit SC ACB [facility] Last Admin: 04/17/18 08:15 Dose: 10 units Losartan Potassium (Cozaar) 25 mg PO DAILY [facility] Last Admin: 04/17/18 09:31 Dose: 25 mg Metformin HCl (Glucophage) 500 mg PO BIDCC [facility] Last Admin: 04/17/18 17:30 Dose: 500 mg Metoprolol Tartrate (Lopressor) 5 mg IVP Q6 PRN PRN Reason: elevated blood pressure Last Admin: 03/31/18 06:09 Dose: 5 mg Metoprolol Tartrate (Lopressor) 25 mg PO BID [facility] Last Admin: 04/17/18 17:30 Dose: 25 mg Pantoprazole Sodium (Protonix Susp) 40 mg PO DAILY [facility] Last Admin: 04/17/18 09:31 Dose: 40 mg Prednisone (Prednisone Tab) 10 mg PO DAILY [facility] Last Admin: 04/17/18 09:31 Dose: 10 mg Rosuvastatin Calcium (Crestor) 10 mg PO HS [facility] Last Admin: 04/16/18 21:40 Dose: 10 mg Sitagliptin Phosphate (Januvia) 100 mg PO DAILY [facility] Last Admin: 04/17/18 09:31 Dose: 100 mg Zolpidem Tartrate (Ambien) 5 mg PO HS PRN PRN Reason: Insomnia Last Admin: 04/17/18 00:30 Dose: 5 mg - Labs Labs: 04/17/18 10:50 04/17/18 10:50 PT 12.9 SECONDS (9.7-12.2) H 03/21/18 04:41 INR 1.2 03/21/18 04:41 APTT 51 SECONDS (21-34) H 03/24/18 06:35 Attending/Attestation - Attestation I have personally seen and examined this patient.: Yes I have fully participated in the care of the patient.: Yes I have reviewed all pertinent clinical information, including history, physical exam and plan: Yes Notes (Text): 04/17/18 19:29 Hospitalist Patient was seen and examined at 1:45 PM Assessments: 1). AMS 2). S/P Cardiac Arrest 3). Pulmonary Fibrosis 4). Hx DM 2 5). S/P PEG Tube Placement 6). Hx HTN Spoke at length with patient's Daughter Chrystal Mejia who was at bedside. Chrystal has explained that she has filled out the necessary paperwork to obtain Passport for patient and once received will make arrangments for patient to be transported back to [facility]. Chrystal's phone number in [place]: [phone] Chrystal's email address: [email or web address] Harlan Chiang's phone number in [place]: [phone] Harlan Chiang's email: [email or web address] Daughter Chrystal would like to be contacted should the patient require daily medication for agitation. However, PRN use is ok. Medicine Team please note that patient's will be staying with patient throughout the day during visiting hours. Family asks that overnight team please check in on patient every few hours to make sure that he is ok as he usually starts to get agitated during the night. Petar Mejia D.O.
[2018-04-17] MEDS: (Lantus) Insulin Glargine, Recombinant SC SCH (08:15)
[2018-04-17] MEDS: (Novolog) Insulin Aspart, Recombinant 100 u/ml 10 ml vial SC SCH ×4 (08:16→21:15)
[2018-04-17] MEDS: Pantoprazole 40 mg Susp UD PO SCH (09:31)
[2018-04-17 10:59] LABS: BASO # 0.1 K/uL (0.0-0.2); BASO % 0.6 % (0.0-2.0); EOS # 0.2 K/uL (0.0-0.7); EOS % 2.1 % (0.0-4.0); HEMOGLOBIN 12.2 g/dL (12.0-18.0); LYMPH # 0.7 K/uL (1.0-4.3); LYMPH % 6.3 % (20.0-40.0); MEAN CELL VOLUME 91.7 fL (80.0-94.0); MEAN CORPUSCULAR HGB CONC 32.7 g/dL (33.0-37.0); MEAN PLATELET VOLUME 10.1 fL (7.2-11.7); MONO # 0.3 K/uL (0.0-0.8); MONO % 2.9 % (0.0-10.0); NEUT # 9.3 K/uL (1.8-7.0); NEUT % 88.1 % (50.0-75.0); PLATELET COUNT 167 K/uL (130-400); RBC 4.05 Mil/uL (4.40-5.90); RED CELL DISTRIBUTION WIDTH 14.3 % (11.5-14.5); WHITE BLOOD COUNT 10.5 K/uL (4.8-10.8)
[2018-04-17 11:14] LABS: ALBUMIN 2.9 g/dL (3.5-5.0); ALT/SGPT 32 U/L (21-72); AST/SGOT 24 U/L (17-59); BLOOD UREA NITROGEN 26 mg/dL (9-20); CALCIUM 8.9 mg/dl (8.6-10.4); GFR NON-AFRICAN AMERICAN > 60
[2018-04-17 12:04] LABS: BANDS 15 % (0-2); EOSINOPHIL 1 % (0-4); LYMPHOCYTE 9 % (20-40); METAMYELOCYTE 1 % (0-0); MONOCYTE 4 % (0-10); NEUTROPHIL 67 % (50-75); REACTIVE LYMPHOCYTES 3 % (0-0); TOTAL CELLS COUNTED 100
[2018-04-17 12:05] LABS: PLATELET ESTIMATE NORMAL (NORMAL)
--- NOTE | 2018-04-17 19:37 | CP.PCM.PCO ---
Physician Communication Note - Physician Communication Note Physician Communication Note: Please see above
--- NOTE | 2018-04-18 00:25 | CP.PCM.PN ---
<Juan Luis Alvarez - Last Filed: 04/18/18 00:22> Subjective - Date & Time of Evaluation Date of Evaluation: 04/18/18 Time of Evaluation: 00:22 - Subjective Subjective: HOSPITALIST SERVICE Pt s/e at bedside, agitated but now cooperative, no acute events overnight endorsed, was upset now calmed down, cognitive deficits noted, 12point ROS unable to obtain, no acute events endorsed from nursing Objective - Vital Signs/Intake and Output Vital Signs (last 24 hours): Temp Pulse Resp BP Pulse Ox 97.4 F L 64 20 135/78 96 04/17/18 16:00 04/17/18 16:00 04/17/18 16:00 04/17/18 17:30 04/17/18 16:00 - Medications Medications: Current Medications Aspirin (Ecotrin) 81 mg PO DAILY [facility] Last Admin: 04/17/18 09:31 Dose: 81 mg Heparin Sodium (Porcine) (Heparin) 5,000 units SC Q8 [facility] Last Admin: 04/17/18 21:15 Dose: 5,000 units Insulin Aspart (Novolog) 0 unit SC ACHS [facility]; Protocol Last Admin: 04/17/18 21:15 Dose: Not Given Insulin Glargine (Lantus) 10 unit SC ACB [facility] Last Admin: 04/17/18 08:15 Dose: 10 units Losartan Potassium (Cozaar) 25 mg PO DAILY [facility] Last Admin: 04/17/18 09:31 Dose: 25 mg Metformin HCl (Glucophage) 500 mg PO BIDCC [facility] Last Admin: 04/17/18 17:30 Dose: 500 mg Metoprolol Tartrate (Lopressor) 5 mg IVP Q6 PRN PRN Reason: elevated blood pressure Last Admin: 03/31/18 06:09 Dose: 5 mg Metoprolol Tartrate (Lopressor) 25 mg PO BID [facility] Last Admin: 04/17/18 17:30 Dose: 25 mg Pantoprazole Sodium (Protonix Susp) 40 mg PO DAILY [facility] Last Admin: 04/17/18 09:31 Dose: 40 mg Prednisone (Prednisone Tab) 10 mg PO DAILY [facility] Last Admin: 04/17/18 09:31 Dose: 10 mg Rosuvastatin Calcium (Crestor) 10 mg PO HS [facility] Last Admin: 04/17/18 21:16 Dose: 10 mg Sitagliptin Phosphate (Januvia) 100 mg PO DAILY [facility] Last Admin: 04/17/18 09:31 Dose: 100 mg Zolpidem Tartrate (Ambien) 5 mg PO HS PRN PRN Reason: Insomnia Last Admin: 04/17/18 00:30 Dose: 5 mg - Labs Labs: 04/17/18 10:50 04/17/18 10:50 PT 12.9 SECONDS (9.7-12.2) H 03/21/18 04:41 INR 1.2 03/21/18 04:41 APTT 51 SECONDS (21-34) H 03/24/18 06:35 - Additional Findings Additional findings: - Constitutional Appears: Non-toxic, Other (lethargic) - Head Exam Head Exam: ATRAUMATIC, NORMAL INSPECTION, NORMOCEPHALIC - Eye Exam Eye Exam: EOMI, Normal appearance. absent: Nystagmus Pupil Exam: PERRL - ENT Exam ENT Exam: Mucous Membranes Moist, Normal Exam - Neck Exam Neck Exam: Normal Inspection - Respiratory Exam Respiratory Exam: Clear to Ausculation Bilateral, NORMAL BREATHING PATTERN - Cardiovascular Exam Cardiovascular Exam: REGULAR RHYTHM, +S1, +S2 - GI/Abdominal Exam GI & Abdominal Exam: Soft, Normal Bowel Sounds (peg tube clamped beneath abdomi nal binder. Insertion site clean, no erythema/drainage). absent: Distended - Extremities Exam Extremities Exam: Normal Inspection (muscle wasting). absent: Pedal Edema - Neurological Exam Neurological Exam: Altered (intentionally unresponsive, prefers to sleep) Passive ROM within normal limits for lower extremities bilaterally Muscle strength 4/5 bilaterally in upper and lower extremities. - Skin Skin Exam: Dry, Intact, Normal Color (ecchymosis, b/l UE), Warm Assessment and Plan - Assessment and Plan (Free Text) Assessment: 67 yo male with pmhx of pulmonary fibrosis, COPD, HTN, and DM2 admitted for hill atment of AMS s/p cardiac arrest. Pending PT evaluation; able to get out of bed to chair with assistance. Patient's ROM is improving in lower extremities bilaterally. Patient is eating home-made foods prepared by family and is tolerating well. PT recommends [facility], However the Patient's family is planning on returning with the Patient back to [facility]. Continue prednisone in setting of elevated sugars as per pulmonolgy team, adjust DM2 meds for better control. Recommend continued speech PT/OT while in [place]. Educated family on diet control due to persistently elevated sugars in the setting of prednisone use. Plan: AMS - 24h EEG 03/29-03/30: severe encephalopathy/coma state - Neurology consulted, Dr. Menjivar/Pierre; recommendations appreciated - ID consulted, Dr. Reddy - Surgery consulted, Dr. Morales - Palliative care consulted, Jessica Valdez - PT/OT/ST - Continue ambien 5mg hs s/p Cardiac Arrest - Continue ASA 81mg - Continue Crestor 10 mg - Continue Duoneb Q6H - Cardiology consulted (Moira/Yury/Brina) - Pulmonology consulted (Martin) Pulmonary fibrosis, chronic, severe - CT chest: centrilobular emphysema and upper lobe pulmonary fibrosis - O2 NC - Continue Prednisone taper - Pulmonology consulted, Dr. Salazar; recommendations appreciated Type 2 diabetes mellitus, chronic - Accuchecks ACHS - Hypoglycemic protocol - ISS- medium - Continue Lantus 20 units SC QHS - Metformin 500mg PO BID started - Januvia 100mg PO Daily started Nutrition - Dietitian calorie count in place - Discuss with family to decrease sugary beverages and foods due to hyperglycemia Hypertension, controlled - Cozaar 25mg - Lopressor 25 mg BID - Lopressor 5 mg IVP Q6H PRN, with holding parameters Ppx: VTE: restart heparin 5000 q8, SCDs GI: Protonix 40mg IV daily Encourage PT Disposition: PT recommends [facility], However the Patient's family is planning on returning with the Patient back to [facility]. Continue prednisone in setting of elevated sugars as per pulmonolgy team, adjust DM2 meds for better control. Recommend continued speech PT/OT while in [place]. Educated family on diet control due to persistently elevated sugars in the setting of prednisone use. DISPO: Daughter and Son to be contacted with concerns Passport issue is being handled by daughter- pending d/c Anastasia Alvarez PGY1 <José Luis Sorensen H - Last Filed: 04/18/18 17:20> Objective - Vital Signs/Intake and Output Vital Signs (last 24 hours): Temp Pulse Resp BP Pulse Ox 97.4 F L 97 H 20 118/79 94 L 04/18/18 00:00 04/18/18 00:00 04/18/18 00:00 04/18/18 09:40 02/03/19 00:00 Intake and Output: 04/18/18 04/18/18 06:59 18:59 Intake Total 200 Balance 200 - Medications Medications: Current Medications Aspirin (Ecotrin) 81 mg PO DAILY [facility] Last Admin: 04/18/18 09:41 Dose: 81 mg Heparin Sodium (Porcine) (Heparin) 5,000 units SC Q8 [facility] Last Admin: 04/18/18 13:44 Dose: 5,000 units Insulin Aspart (Novolog) 0 unit SC ACHS [facility]; Protocol Last Admin: 04/18/18 11:59 Dose: 6 units Insulin Glargine (Lantus) 10 unit SC ACB [facility] Last Admin: 04/18/18 08:30 Dose: 10 units Losartan Potassium (Cozaar) 25 mg PO DAILY [facility] Last Admin: 04/18/18 09:41 Dose: 25 mg Metformin HCl (Glucophage) 500 mg PO BIDCC [facility] Last Admin: 04/18/18 08:41 Dose: 500 mg Metoprolol Tartrate (Lopressor) 5 mg IVP Q6 PRN PRN Reason: elevated blood pressure Last Admin: 03/31/18 06:09 Dose: 5 mg Metoprolol Tartrate (Lopressor) 25 mg PO BID [facility] Last Admin: 04/18/18 09:40 Dose: 25 mg Pantoprazole Sodium (Protonix Susp) 40 mg PO DAILY [facility] Last Admin: 04/18/18 09:41 Dose: 40 mg Prednisone (Prednisone Tab) 10 mg PO DAILY [facility] Last Admin: 04/18/18 09:41 Dose: 10 mg Rosuvastatin Calcium (Crestor) 10 mg PO HS [facility] Last Admin: 04/17/18 21:16 Dose: 10 mg Sitagliptin Phosphate (Januvia) 100 mg PO DAILY [facility] Last Admin: 04/18/18 09:41 Dose: 100 mg Zolpidem Tartrate (Ambien) 5 mg PO HS PRN PRN Reason: Insomnia Last Admin: 04/18/18 01:00 Dose: 5 mg - Labs Labs: 04/18/18 07:32 04/18/18 07:32 PT 12.9 SECONDS (9.7-12.2) H 03/21/18 04:41 INR 1.2 03/21/18 04:41 APTT 51 SECONDS (21-34) H 03/24/18 06:35 Attending/Attestation - Attestation I have personally seen and examined this patient.: Yes I have fully participated in the care of the patient.: Yes I have reviewed all pertinent clinical information, including history, physical exam and plan: Yes Notes (Text): 04/18/18 17:18 Medical attending: Patient was seen and examined by me. Agree with the above note by the resident The patient was not in any acute distress His was present at bedside and I spoke with the daughter via speaker phone He continues to tolerate PO food well He still had the flannery to keep the PEG site open and today I removed it. It came out easily, there was no bleeding and he did not have pain. 4x4 and tape, change QD So at this point we are waiting for when family can arrange for the neccessary paperwork for him to return to [facility] José Luis Sorensen
[2018-04-18 07:49] LABS: BASO % 0.3 % (0.0-2.0); EOS # 0.2 K/uL (0.0-0.7); EOS % 2.7 % (0.0-4.0); HEMOGLOBIN 10.4 g/dL (12.0-18.0); LYMPH # 0.6 K/uL (1.0-4.3); LYMPH % 6.7 % (20.0-40.0); MEAN CELL VOLUME 89.7 fL (80.0-94.0); MEAN CORPUSCULAR HEMOGLOBIN 29.7 pg (27.0-31.0); MEAN CORPUSCULAR HGB CONC 33.4 g/dL (33.0-37.0); MEAN PLATELET VOLUME 9.6 fL (7.2-11.7); MONO # 0.2 K/uL (0.0-0.8); MONO % 2.5 % (0.0-10.0); NEUT # 8.1 K/uL (1.8-7.0); NEUT % 87.8 % (50.0-75.0); NRBC % 0.1 % (0.0-2.0); PLATELET COUNT 137 K/uL (130-400); RED CELL DISTRIBUTION WIDTH 14.9 % (11.5-14.5); WHITE BLOOD COUNT 9.2 K/uL (4.8-10.8)
[2018-04-18 08:04] LABS: ALB/GLOB RATIO 0.9 (1.0-2.1); ALBUMIN 2.5 g/dL (3.5-5.0); ALT/SGPT 29 U/L (21-72); AST/SGOT 20 U/L (17-59); BLOOD UREA NITROGEN 29 mg/dL (9-20); CALCIUM 8.7 mg/dl (8.6-10.4); GFR NON-AFRICAN AMERICAN > 60
[2018-04-18 08:23] LABS: BANDS 8 % (0-2); LYMPHOCYTE 12 % (20-40); MONOCYTE 1 % (0-10); NEUTROPHIL 79 % (50-75); PLATELET ESTIMATE NORMAL (NORMAL); TOTAL CELLS COUNTED 100
[2018-04-18 08:24] LABS: ANISOCYTOSIS SLIGHT; POLYCHROMIC SLIGHT
[2018-04-18 08:25] LABS: LARGE PLATELETS PRESENT
[2018-04-18] MEDS: (Lantus) Insulin Glargine, Recombinant SC SCH (08:30)
[2018-04-18] MEDS: (Novolog) Insulin Aspart, Recombinant 100 u/ml 10 ml vial SC SCH ×4 (08:30→22:24)
[2018-04-18] MEDS: Pantoprazole 40 mg Susp UD PO SCH (09:41)
[2018-04-19 06:12] LABS: BASO % 0.4 % (0.0-2.0); EOS # 0.2 K/uL (0.0-0.7); EOS % 2.7 % (0.0-4.0); HEMOGLOBIN 10.9 g/dL (12.0-18.0); LYMPH # 0.7 K/uL (1.0-4.3); LYMPH % 8.8 % (20.0-40.0); MEAN CELL VOLUME 89.1 fL (80.0-94.0); MEAN CORPUSCULAR HEMOGLOBIN 29.6 pg (27.0-31.0); MEAN CORPUSCULAR HGB CONC 33.3 g/dL (33.0-37.0); MEAN PLATELET VOLUME 9.7 fL (7.2-11.7); MONO # 0.3 K/uL (0.0-0.8); MONO % 3.6 % (0.0-10.0); NEUT % 84.5 % (50.0-75.0); PLATELET COUNT 161 K/uL (130-400); RBC 3.68 Mil/uL (4.40-5.90); RED CELL DISTRIBUTION WIDTH 14.4 % (11.5-14.5); WHITE BLOOD COUNT 8.3 K/uL (4.8-10.8)
[2018-04-19 06:26] LABS: ALB/GLOB RATIO 0.9 (1.0-2.1); ALBUMIN 2.7 g/dL (3.5-5.0); ALT/SGPT 27 U/L (21-72); AST/SGOT 19 U/L (17-59); BLOOD UREA NITROGEN 23 mg/dL (9-20); CALCIUM 8.5 mg/dl (8.6-10.4); GFR NON-AFRICAN AMERICAN > 60
--- NOTE | 2018-04-19 07:15 | CP.PCM.PN ---
<Caleb Killian L - Last Filed: 04/19/18 13:07> Subjective - Date & Time of Evaluation Date of Evaluation: 04/19/18 Time of Evaluation: 07:15 - Subjective Subjective: Resident Progress Note for Hospitalist Service Patient examined at bedside. No acute events overnight. Patient is resting in bed in no acute distress. Patient alert and following commands. Objective - Vital Signs/Intake and Output Vital Signs (last 24 hours): Temp Pulse Resp BP Pulse Ox 98.4 F 85 22 122/65 95 04/19/18 00:00 04/19/18 00:00 04/19/18 00:00 04/19/18 00:00 04/19/18 07:01 Intake and Output: 04/19/18 04/19/18 06:59 18:59 Intake Total 200 Balance 200 - Medications Medications: Current Medications Aspirin (Ecotrin) 81 mg PO DAILY [facility] Last Admin: 04/18/18 09:41 Dose: 81 mg Heparin Sodium (Porcine) (Heparin) 5,000 units SC Q8 [facility] Last Admin: 04/19/18 05:40 Dose: 5,000 units Insulin Aspart (Novolog) 0 unit SC [facility]; Protocol Last Admin: 04/18/18 22:24 Dose: Not Given Insulin Glargine (Lantus) 10 unit SC ACB [facility] Last Admin: 04/18/18 08:30 Dose: 10 units Losartan Potassium (Cozaar) 25 mg PO DAILY [facility] Last Admin: 04/18/18 09:41 Dose: 25 mg [facility] Last Admin: 04/18/18 17:31 Dose: 500 mg Metoprolol Tartrate (Lopressor) 5 mg IVP Q6 PRN PRN Reason: elevated blood pressure Last Admin: 03/31/18 06:09 Dose: 5 mg Metoprolol Tartrate (Lopressor) 25 mg PO BID [facility] Last Admin: 04/18/18 17:31 Dose: 25 mg Pantoprazole Sodium (Protonix Susp) 40 mg PO DAILY [facility] Last Admin: 04/18/18 09:41 Dose: 40 mg Prednisone (Prednisone Tab) 10 mg PO DAILY [facility] Last Admin: 04/18/18 09:41 Dose: 10 mg Rosuvastatin Calcium (Crestor) 10 mg PO HS [facility] Last Admin: 04/18/18 21:01 Dose: 10 mg Sitagliptin Phosphate (Januvia) 100 mg PO DAILY [facility] Last Admin: 04/18/18 09:41 Dose: 100 mg Zolpidem Tartrate (Ambien) 5 mg PO HS PRN PRN Reason: Insomnia Last Admin: 04/18/18 22:35 Dose: 5 mg - Labs Labs: 04/19/18 06:05 04/19/18 06:05 PT 12.9 SECONDS (9.7-12.2) H 03/21/18 04:41 INR 1.2 03/21/18 04:41 APTT 51 SECONDS (21-34) H 03/24/18 06:35 - Additional Findings Additional findings: - Constitutional Appears: No Acute Distress, Other (lethargic) - Head Exam Head Exam: ATRAUMATIC, NORMOCEPHALIC - Eye Exam Eye Exam: EOMI, Normal appearance, PERRLA. absent: Nystagmus - ENT Exam ENT Exam: Mucous Membranes Moist, Normal Exam - Neck Exam Neck Exam: Normal Inspection - Respiratory Exam Respiratory Exam: Clear to Auscultation Bilateral, NORMAL BREATHING PATTERN. absent: Respiratory Distress, Accessory Muscle Use - Cardiovascular Exam Cardiovascular Exam: REGULAR RHYTHM, +S1, +S2 - GI/Abdominal Exam GI & Abdominal Exam: Soft, Normal Bowel Sounds (insertion site clean, no erythema/drainage). absent: Distended, Rebound, Rigid - Extremities Exam Extremities Exam: Normal Inspection (muscle wasting). absent: Pedal Edema - Neurological Exam Neurological Exam: Alert. Passive ROM within normal limits for lower extremities bilaterally Muscle strength 4/5 bilaterally in upper and lower extremities. - Skin Skin Exam: Dry, Intact, Ecchymosis Assessment and Plan - Assessment and Plan (Free Text) Assessment: Patient is a 67 year old male with past medical history of pulmonary fibrosis, COPD, HTN, and T2DM admitted for management of AMS s/p cardiac arrest. Plan: Altered mental status - 24h EEG shows severe encephalopathy/coma state - Neurology consulted, Dr. Menjivar/Pierre; recs appreciated - ID consulted, Dr. Reddy - Surgery consulted, Dr. Morales - PT/OT/ST - Continue ambien 5mg hs s/p cardiac arrest - Continue ASA 81mg - Continue Crestor 10 mg - Continue Duoneb Q6H - Cardiology consulted (Moira/Yury/Brina) Pulmonary fibrosis - CT chest: centrilobular emphysema and upper lobe pulmonary fibrosis - O2 NC - Continue Prednisone taper - Pulmonology consulted, Dr. Salazar; recs appreciated Type 2 diabetes mellitus - Accucheckelif ACHS - Hypoglycemic protocol - ISS- medium - Continue Lantus 20 units SC QHS - Metformin 500mg PO BID started - Januvia 100mg PO Daily started Hypertension - Cozaar 25 mg PO daily - Lopressor 25 mg BID - Lopressor 5 mg IVP Q6H PRN Nutrition - PEG tube removed - Dietitian calorie count in place - Discuss with family to decrease sugary beverages and foods due to hyperglycemia PPX: - Heparin 5000 q8, SCDs - Protonix 40mg IV daily Disposition: PT recommends [facility], however patient's family is planning on returning with the patient back to [facility]. Continue prednisone in setting of elevated sugars as per pulmonolgy team, adjust DM2 meds for better control. Recommend continued speech PT/OT while in [facility]. Educated family on diet control for hyperglycemia. Passport issue is being handled by daughter- pending d/c Caleb Killian PGY-1 <José Luis Sorensen H - Last Filed: 04/19/18 14:19> Objective - Vital Signs/Intake and Output Vital Signs (last 24 hours): Temp Pulse Resp BP Pulse Ox 98.1 F 68 20 126/78 97 04/19/18 08:29 04/19/18 08:29 04/19/18 08:29 04/19/18 10:03 04/19/18 08:29 Intake and Output: 04/19/18 04/19/18 06:59 18:59 Intake Total 200 Balance 200 - Medications Medications: Current Medications Aspirin (Ecotrin) 81 mg PO DAILY [facility] Last Admin: 04/19/18 10:03 Dose: 81 mg Heparin Sodium (Porcine) (Heparin) 5,000 units SC Q8 [facility] Last Admin: 04/19/18 13:52 Dose: 5,000 units Insulin Aspart (Novolog) 0 unit SC [facility]; Protocol Last Admin: 04/19/18 12:39 Dose: 4 units Insulin Glargine (Lantus) 10 unit SC ACB [facility] Last Admin: 04/19/18 08:42 Dose: 10 units Losartan Potassium (Cozaar) 25 mg PO DAILY [facility] Last Admin: 04/19/18 10:03 Dose: 25 mg Metformin HCl (Glucophage) 500 mg PO BIDCC [facility] Last Admin: 04/19/18 08:42 Dose: 500 mg Metoprolol Tartrate (Lopressor) 5 mg IVP Q6 PRN PRN Reason: elevated blood pressure Last Admin: 03/31/18 06:09 Dose: 5 mg Metoprolol Tartrate (Lopressor) 25 mg PO BID [facility] Last Admin: 04/19/18 10:03 Dose: 25 mg Pantoprazole Sodium (Protonix Susp) 40 mg PO DAILY [facility] Last Admin: 04/19/18 10:04 Dose: 40 mg Prednisone (Prednisone Tab) 10 mg PO DAILY [facility] Last Admin: 04/19/18 10:04 Dose: 10 mg Rosuvastatin Calcium (Crestor) 10 mg PO HS [facility] Last Admin: 04/18/18 21:01 Dose: 10 mg Sitagliptin Phosphate (Januvia) 100 mg PO DAILY [facility] Last Admin: 04/19/18 10:03 Dose: 100 mg Zolpidem Tartrate (Ambien) 5 mg PO HS PRN PRN Reason: Insomnia Last Admin: 04/18/18 22:35 Dose: 5 mg - Labs Labs: 04/19/18 06:05 04/19/18 06:05 PT 12.9 SECONDS (9.7-12.2) H 03/21/18 04:41 INR 1.2 03/21/18 04:41 APTT 51 SECONDS (21-34) H 03/24/18 06:35 Attending/Attestation - Attestation I have personally seen and examined this patient.: Yes I have fully participated in the care of the patient.: Yes I have reviewed all pertinent clinical information, including history, physical exam and plan: Yes Notes (Text): 04/19/18 14:15 Medical attending: Patient was seen and examined by me. Agree with the above note by the resident Today patient's was at bedside The area from the [place] that was moved - it looks clean, no discharge, no pain with palpation At this moment we are pending as to when the patient can return to [place]. Family is waiting on paper work José Luis Sorensen
[2018-04-19 08:34] LABS: BANDS 9 % (0-2); EOSINOPHIL 2 % (0-4); LYMPHOCYTE 6 % (20-40); MONOCYTE 4 % (0-10); NEUTROPHIL 79 % (50-75); PLATELET ESTIMATE NORMAL (NORMAL); TOTAL CELLS COUNTED 100
[2018-04-19 08:35] LABS: ANISOCYTOSIS SLIGHT; HYPOCHROMIC SLIGHT; POIKILOCYTOSIS SLIGHT; TARGET CELLS SLIGHT
[2018-04-19] MEDS: (Novolog) Insulin Aspart, Recombinant 100 u/ml 10 ml vial SC SCH ×4 (08:41→22:00)
[2018-04-19] MEDS: (Lantus) Insulin Glargine, Recombinant SC SCH (08:42)
[2018-04-19] MEDS: Pantoprazole 40 mg Susp UD PO SCH (10:04)
[2018-04-20 07:18] LABS: BASO % 0.1 % (0.0-2.0); EOS # 0.3 K/uL (0.0-0.7); EOS % 2.9 % (0.0-4.0); HEMOGLOBIN 11.6 g/dL (12.0-18.0); LYMPH # 0.8 K/uL (1.0-4.3); LYMPH % 9.6 % (20.0-40.0); MEAN CELL VOLUME 90.3 fL (80.0-94.0); MEAN CORPUSCULAR HEMOGLOBIN 29.7 pg (27.0-31.0); MEAN CORPUSCULAR HGB CONC 32.9 g/dL (33.0-37.0); MEAN PLATELET VOLUME 9.9 fL (7.2-11.7); MONO # 0.3 K/uL (0.0-0.8); MONO % 3.3 % (0.0-10.0); NEUT # 7.3 K/uL (1.8-7.0); NEUT % 84.1 % (50.0-75.0); NRBC % 0.1 % (0.0-2.0); PLATELET COUNT 172 K/uL (130-400); RED CELL DISTRIBUTION WIDTH 14.2 % (11.5-14.5); WHITE BLOOD COUNT 8.7 K/uL (4.8-10.8)
--- NOTE | 2018-04-20 07:23 | CP.PCM.PN ---
Subjective - Date & Time of Evaluation Date of Evaluation: 04/20/18 Time of Evaluation: 07:23 - Subjective Subjective: PGY1 Medicine Progress Note for Dr. Tong Patient evaluated and examined at bedside. No acute overnight events overnight. Patient's is at bedside and states the Patient is without complaints; Patient's daughter is still in the process of obtaining passport and travel accommodation for the Patient. Complete ROS is unobtainable due to Patient's clinical condition/anoxic brain injury. Family at bedside. Patient is verbally responsive and following commands, however he is confused. A&Ox1. Objective - Vital Signs/Intake and Output Vital Signs (last 24 hours): Temp Pulse Resp BP Pulse Ox 97.8 F 104 H 20 110/75 94 L 04/20/18 00:00 04/20/18 00:00 04/20/18 00:00 04/20/18 00:00 04/20/18 00:00 Intake and Output: 04/20/18 04/20/18 06:59 18:59 Intake Total 500 Balance 500 - Medications Medications: Current Medications Aspirin (Ecotrin) 81 mg PO DAILY [facility] Last Admin: 04/19/18 10:03 Dose: 81 mg Heparin Sodium (Porcine) (Heparin) 5,000 units SC Q8 [facility] Last Admin: 04/20/18 05:47 Dose: 5,000 units Insulin Aspart (Novolog) 0 unit SC [facility]; Protocol Last Admin: 04/19/18 22:00 Dose: Not Given Insulin Glargine (Lantus) 10 unit SC ACB [facility] Last Admin: 04/19/18 08:42 Dose: 10 units Losartan Potassium (Cozaar) 25 mg PO DAILY [facility] Last Admin: 04/19/18 10:03 Dose: 25 mg Metformin HCl (Glucophage) 500 mg PO BIDCC [facility] Last Admin: 04/19/18 17:55 Dose: 500 mg Metoprolol Tartrate (Lopressor) 5 mg IVP Q6 PRN PRN Reason: elevated blood pressure Last Admin: 03/31/18 06:09 Dose: 5 mg Metoprolol Tartrate (Lopressor) 25 mg PO BID [facility] Last Admin: 04/19/18 18:35 Dose: 25 mg Pantoprazole Sodium (Protonix Susp) 40 mg PO DAILY [facility] Last Admin: 04/19/18 10:04 Dose: 40 mg Prednisone (Prednisone Tab) 10 mg PO DAILY [facility] Last Admin: 04/19/18 10:04 Dose: 10 mg Rosuvastatin Calcium (Crestor) 10 mg PO HS [facility] Last Admin: 04/19/18 21:59 Dose: 10 mg Sitagliptin Phosphate (Januvia) 100 mg PO DAILY [facility] Last Admin: 04/19/18 10:03 Dose: 100 mg Zolpidem Tartrate (Ambien) 5 mg PO HS PRN PRN Reason: Insomnia Last Admin: 04/20/18 01:10 Dose: 5 mg - Labs Labs: 04/20/18 07:03 04/19/18 06:05 PT 12.9 SECONDS (9.7-12.2) H 03/21/18 04:41 INR 1.2 03/21/18 04:41 APTT 51 SECONDS (21-34) H 03/24/18 06:35 - Additional Findings Additional findings: - Constitutional Appears: Non-toxic, Other (lethargic) - Head Exam Head Exam: ATRAUMATIC, NORMAL INSPECTION, NORMOCEPHALIC - Eye Exam Eye Exam: EOMI, Normal appearance. absent: Nystagmus Pupil Exam: PERRL - ENT Exam ENT Exam: Mucous Membranes Moist, Normal Exam - Neck Exam Neck Exam: Normal Inspection - Respiratory Exam Respiratory Exam: Clear to Ausculation Bilateral, NORMAL BREATHING PATTERN - Cardiovascular Exam Cardiovascular Exam: REGULAR RHYTHM, +S1, +S2 - GI/Abdominal Exam GI & Abdominal Exam: Soft, Normal Bowel Sounds (peg tube clamped beneath abdominal binder. Insertion site clean, no erythema/drainage). absent: Distended - Extremities Exam Extremities Exam: Normal Inspection (muscle wasting). absent: Pedal Edema - Neurological Exam Neurological Exam: Altered (intentionally unresponsive, prefers to sleep) Passive ROM within normal limits for lower extremities bilaterally Muscle strength 4/5 bilaterally in upper and lower extremities. - Skin Skin Exam: Dry, Intact, Normal Color (ecchymosis, b/l UE), Warm Assessment and Plan - Assessment and Plan (Free Text) Assessment: 67 yo male with pmhx of pulmonary fibrosis, COPD, HTN, and DM2 admitted for treatment of AMS s/p cardiac arrest. Pending PT evaluation; able to get out of bed to chair with assistance. Patient's ROM is improving in lower extremities bilaterally. Patient is eating home-made foods prepared by family and is tolerating well. PT recommends [facility], However the Patient's family is planning on returning with the Patient back to [place]. Continue prednisone in setting of elevated sugars as per pulmonolgy team, adjust DM2 meds for better control. Recommend continued speech PT/OT while in [place]. Educated family on diet control due to persistently elevated sugars in the setting of prednisone use. Plan: AMS - 24h EEG 03/29-03/30: severe encephalopathy/coma state - Neurology consulted, Dr. Menjivar/Pierre; recommendations appreciated - ID consulted, Dr. Reddy - Surgery consulted, Dr. Morales - Palliative care consulted, Jessica Valdez - PT/OT/ST - Continue ambien 5mg hs s/p Cardiac Arrest - Continue ASA 81mg - Continue Crestor 10 mg - Continue Duoneb Q6H - Cardiology consulted (Moira/Yury/Brina) - Pulmonology consulted (Martin) Pulmonary fibrosis, chronic, severe - CT chest: centrilobular emphysema and upper lobe pulmonary fibrosis - O2 NC - Continue Prednisone taper - Pulmonology consulted, Dr. Salazar; recommendations appreciated Type 2 diabetes mellitus, chronic - Accuchecks ACHS - Hypoglycemic protocol - ISS- medium - Continue Lantus 20 units SC QHS - Metformin 500mg PO BID started - Januvia 100mg PO Daily started Nutrition - Dietitian calorie count in place - Discuss with family to decrease sugary beverages and foods due to hyperglycem ia Hypertension, controlled - Cozaar 25mg - Lopressor 25 mg BID - Lopressor 5 mg IVP Q6H PRN, with holding parameters Ppx: VTE: restart heparin 5000 q8, SCDs GI: Protonix 40mg IV daily Encourage PT Disposition: PT recommends [facility], However the Patient's family is planning on returning with the Patient back to [place]. Continue prednisone in setting of elevated sugars as per pulmonolgy team, adjust DM2 meds for better control. Recommend continued speech PT/OT while in [place]. Educated family on diet control due to persistently elevated sugars in the setting of prednisone use. Patient seen and case discussed in detail with Dr. Alycia Escoto PGY1
[2018-04-20 07:43] LABS: ALB/GLOB RATIO 0.9 (1.0-2.1); ALT/SGPT 20 U/L (21-72); AST/SGOT 23 U/L (17-59); BLOOD UREA NITROGEN 22 mg/dL (9-20); CALCIUM 8.9 mg/dl (8.6-10.4); GFR NON-AFRICAN AMERICAN > 60
[2018-04-20] MEDS: (Lantus) Insulin Glargine, Recombinant SC SCH (07:53)
[2018-04-20] MEDS: (Novolog) Insulin Aspart, Recombinant 100 u/ml 10 ml vial SC SCH ×4 (07:53→22:00)
[2018-04-20 09:10] LABS: BANDS 2 % (0-2); EOSINOPHIL 3 % (0-4); LYMPHOCYTE 10 % (20-40); MONOCYTE 3 % (0-10); NEUTROPHIL 82 % (50-75); NUCLEATED RED BLOOD CELL 1 % (0-0); PLATELET ESTIMATE NORMAL (NORMAL); TOTAL CELLS COUNTED 100
[2018-04-20 09:11] LABS: ANISOCYTOSIS SLIGHT; HYPOCHROMIC SLIGHT; POIKILOCYTOSIS SLIGHT
[2018-04-20 09:12] LABS: LARGE PLATELETS PRESENT
[2018-04-20] MEDS: Pantoprazole 40 mg Susp UD PO SCH (10:07)
[2018-04-21 07:45] LABS: BASO % 0.2 % (0.0-2.0); EOS # 0.1 K/uL (0.0-0.7); EOS % 1.2 % (0.0-4.0); HEMOGLOBIN 11.2 g/dL (12.0-18.0); LYMPH # 1.1 K/uL (1.0-4.3); LYMPH % 9.5 % (20.0-40.0); MEAN CELL VOLUME 89.9 fL (80.0-94.0); MEAN CORPUSCULAR HEMOGLOBIN 29.7 pg (27.0-31.0); MEAN PLATELET VOLUME 9.8 fL (7.2-11.7); MONO # 0.3 K/uL (0.0-0.8); MONO % 2.9 % (0.0-10.0); NEUT # 9.8 K/uL (1.8-7.0); NEUT % 86.2 % (50.0-75.0); NRBC % 0.2 % (0.0-2.0); PLATELET COUNT 164 K/uL (130-400); RBC 3.79 Mil/uL (4.40-5.90); RED CELL DISTRIBUTION WIDTH 14.7 % (11.5-14.5); WHITE BLOOD COUNT 11.3 K/uL (4.8-10.8)
[2018-04-21 07:55] LABS: ALB/GLOB RATIO 0.9 (1.0-2.1); ALBUMIN 2.8 g/dL (3.5-5.0); ALT/SGPT 24 U/L (21-72); AST/SGOT 27 U/L (17-59); BLOOD UREA NITROGEN 32 mg/dL (9-20); CALCIUM 8.9 mg/dl (8.6-10.4); GFR NON-AFRICAN AMERICAN > 60
[2018-04-21] MEDS: (Lantus) Insulin Glargine, Recombinant SC SCH (08:52)
[2018-04-21] MEDS: (Novolog) Insulin Aspart, Recombinant 100 u/ml 10 ml vial SC SCH ×4 (08:53→21:18)
--- NOTE | 2018-04-21 09:15 | CP.PCM.PN ---
<John Escoto - Last Filed: 04/21/18 15:49> Subjective - Date & Time of Evaluation Date of Evaluation: 04/21/18 Time of Evaluation: 09:15 - Subjective Subjective: PGY1 Medicine Progress Note for Dr. Sorensen Patient evaluated and examined at bedside. No acute overnight events overnight. Patient's is at bedside and states the Patient is without complaints; Complete ROS is unobtainable due to Patient's clinical condition/anoxic brain injury. Family at bedside, and per Patient's , she would like to take him home prior to going to [facility] and take care of the Patient at home. Patient is verbally responsive and only following some basic commands. however he is confused. A&Ox1. Objective - Vital Signs/Intake and Output Vital Signs (last 24 hours): Temp Pulse Resp BP Pulse Ox 98.2 F 111 H 20 92/56 L 94 L 04/21/18 01:07 04/21/18 01:07 04/21/18 01:07 04/20/18 17:57 04/21/18 01:07 Intake and Output: 04/21/18 04/21/18 06:59 18:59 Intake Total 250 Balance 250 - Medications Medications: Current Medications Aspirin (Ecotrin) 81 mg PO DAILY [facility] Last Admin: 04/20/18 10:07 Dose: 81 mg Heparin Sodium (Porcine) (Heparin) 5,000 units SC Q8 [facility] Last Admin: 04/21/18 05:31 Dose: 5,000 units Insulin Aspart (Novolog) 0 unit SC [facility]; Protocol Last Admin: 04/21/18 08:53 Dose: 4 units Insulin Glargine (Lantus) 15 unit SC ACB [facility] Last Admin: 04/21/18 08:52 Dose: 15 units Losartan Potassium (Cozaar) 25 mg PO DAILY [facility] Last Admin: 04/20/18 10:07 Dose: 25 mg Metformin HCl (Glucophage) 500 mg PO BIDCC [facility] Last Admin: 04/21/18 08:49 Dose: 500 mg Metoprolol Tartrate (Lopressor) 5 mg IVP Q6 PRN PRN Reason: elevated blood pressure Last Admin: 03/31/18 06:09 Dose: 5 mg Metoprolol Tartrate (Lopressor) 25 mg PO BID [facility] Last Admin: 04/20/18 17:57 Dose: Not Given Pantoprazole Sodium (Protonix Susp) 40 mg PO DAILY [facility] Last Admin: 04/20/18 10:07 Dose: 40 mg Prednisone (Prednisone Tab) 10 mg PO DAILY [facility] Last Admin: 04/20/18 10:07 Dose: 10 mg Rosuvastatin Calcium (Crestor) 10 mg PO HS [facility] Last Admin: 04/20/18 22:00 Dose: 10 mg Sitagliptin Phosphate (Januvia) 100 mg PO DAILY [facility] Last Admin: 04/20/18 10:07 Dose: 100 mg Zolpidem Tartrate (Ambien) 5 mg PO HS PRN PRN Reason: Insomnia Last Admin: 04/20/18 22:00 Dose: 5 mg - Labs Labs: 04/21/18 07:35 04/21/18 07:35 PT 12.9 SECONDS (9.7-12.2) H 03/21/18 04:41 INR 1.2 03/21/18 04:41 APTT 51 SECONDS (21-34) H 03/24/18 06:35 - Additional Findings Additional findings: - Constitutional Appears: Non-toxic, Other (lethargic) - Head Exam Head Exam: ATRAUMATIC, NORMAL INSPECTION, NORMOCEPHALIC - Eye Exam Eye Exam: EOMI, Normal appearance. absent: Nystagmus Pupil Exam: PERRL - ENT Exam ENT Exam: Mucous Membranes Moist, Normal Exam - Neck Exam Neck Exam: Normal Inspection - Respiratory Exam Respiratory Exam: Clear to Ausculation Bilateral, NORMAL BREATHING PATTERN - Cardiovascular Exam Cardiovascular Exam: REGULAR RHYTHM, +S1, +S2 - GI/Abdominal Exam GI & Abdominal Exam: Soft, Normal Bowel Sounds (peg tube clamped beneath abdominal binder. Insertion site clean, no erythema/drainage). absent: Distended - Extremities Exam Extremities Exam: Normal Inspection (muscle wasting). absent: Pedal Edema - Neurological Exam Neurological Exam: Altered (intentionally unresponsive, prefers to sleep) Passive ROM within normal limits for lower extremities bilaterally Muscle strength 4/5 bilaterally in upper and lower extremities. - Skin Skin Exam: Dry, Intact, Normal Color, Warm Assessment and Plan - Assessment and Plan (Free Text) Assessment: 67 yo male with pmhx of pulmonary fibrosis, COPD, HTN, and DM2 admitted for treatment of AMS s/p cardiac arrest. Pending PT evaluation; able to get out of bed to chair with assistance. Patient's ROM is improving in lower extremities bilaterally. Patient is eating home-made foods prepared by family and is bruna ating well. PT recommends [facility], However the Patient's family is planning on returning with the Patient back to [place]. Continue prednisone in setting of elevated sugars as per pulmonolgy team, adjust DM2 meds for better control. Recommend continued speech PT/OT while in [place]. Educated family on diet control due to persistently elevated sugars in the setting of prednisone use. Plan: AMS - 24h EEG 03/29-03/30: severe encephalopathy/coma state - Neurology consulted, Dr. Menjivar/Pierre; recommendations appreciated - ID consulted, Dr. Reddy - Surgery consulted, Dr. Morales - Palliative care consulted, Jessica Valdez - PT/OT/ST - Continue ambien 5mg hs s/p Cardiac Arrest - Continue ASA 81mg - Continue Crestor 10 mg - Continue Duoneb Q6H - Cardiology consulted (Moira/Yury/Brina) - Pulmonology consulted (Martin) Pulmonary fibrosis, chronic, severe - CT chest: centrilobular emphysema and upper lobe pulmonary fibrosis - O2 NC - Continue Prednisone taper - Pulmonology consulted, Dr. Salazar; recommendations appreciated Type 2 diabetes mellitus, chronic - Accuchecks ACHS - Hypoglycemic protocol - ISS- medium - Continue Lantus 20 units SC QHS - Metformin 500mg PO BID started - Januvia 100mg PO Daily started Nutrition - Dietitian calorie count in place - Discuss with family to decrease sugary beverages and foods due to hyperglycemia Hypertension, controlled - Cozaar 25mg - Lopressor 25 mg BID - Lopressor 5 mg IVP Q6H PRN, with holding parameters Ppx: VTE: restart heparin 5000 q8, SCDs GI: Protonix 40mg IV daily Encourage PT Disposition: PT recommends [facility], However the Patient's family is planning on returning with the Patient back to [place]. Continue prednisone in setting of elevated sugars as per pulmonolgy team, adjust DM2 meds for better control. Recommend continued speech PT/OT while in [place]. Educated family on diet control due to persistently elevated sugars in the setting of prednisone use. Family would like to take the Patient home until his trip to [place] can be arrange. Patient seen and case discussed in detail with Dr. Franchesca Escoto PGY1 <Sorensen,Peter H - Last Filed: 04/21/18 16:05> Objective - Vital Signs/Intake and Output Vital Signs (last 24 hours): Temp Pulse Resp BP Pulse Ox 98.4 F 111 H 20 103/73 94 L 04/21/18 10:55 04/21/18 11:45 04/21/18 10:55 04/21/18 11:45 04/21/18 11:45 Intake and Output: 04/21/18 04/21/18 06:59 18:59 Intake Total 250 Balance 250 - Medications Medications: Current Medications Aspirin (Ecotrin) 81 mg PO DAILY [facility] Last Admin: 04/21/18 09:51 Dose: 81 mg Heparin Sodium (Porcine) (Heparin) 5,000 units SC Q8 [facility] Last Admin: 04/21/18 13:52 Dose: 5,000 units Insulin Aspart (Novolog) 0 unit SC [facility]; Protocol Last Admin: 04/21/18 11:46 Dose: 10 units Insulin Glargine (Lantus) 15 unit SC ACB [facility] Last Admin: 04/21/18 08:52 Dose: 15 units Losartan Potassium (Cozaar) 25 mg PO DAILY [facility] Last Admin: 04/21/18 10:01 Dose: Not Given [facility] Last Admin: 04/21/18 08:49 Dose: 500 mg Metoprolol Tartrate (Lopressor) 5 mg IVP Q6 PRN PRN Reason: elevated blood pressure Last Admin: 03/31/18 06:09 Dose: 5 mg Metoprolol Tartrate (Lopressor) 25 mg PO BID [facility] Last Admin: 04/21/18 10:01 Dose: Not Given Pantoprazole Sodium (Protonix Susp) 40 mg PO DAILY [facility] Last Admin: 04/21/18 09:51 Dose: 40 mg Prednisone (Prednisone Tab) 10 mg PO DAILY [facility] Last Admin: 04/21/18 09:51 Dose: 10 mg Rosuvastatin Calcium (Crestor) 10 mg PO HS [facility] Last Admin: 04/20/18 22:00 Dose: 10 mg Sitagliptin Phosphate (Januvia) 100 mg PO DAILY [facility] Last Admin: 04/21/18 09:51 Dose: 100 mg Zolpidem Tartrate (Ambien) 5 mg PO HS PRN PRN Reason: Insomnia Last Admin: 04/20/18 22:00 Dose: 5 mg - Labs Labs: 04/21/18 07:35 04/21/18 07:35 PT 12.9 SECONDS (9.7-12.2) H 03/21/18 04:41 INR 1.2 03/21/18 04:41 APTT 51 SECONDS (21-34) H 03/24/18 06:35 Attending/Attestation - Attestation I have personally seen and examined this patient.: Yes I have fully participated in the care of the patient.: Yes I have reviewed all pertinent clinical information, including history, physical exam and plan: Yes Notes (Text): 04/21/18 16:04 Medical attending: Patient was seen and examined by me. Agree with the above note by the resident The patient was not changed from before. Family member at bedside He was awake and alert and shook my hand when we came in. Occasionally follows commands Inspected the abdomen and the area where the PEG used to be is clean, dry and no discharge José Luis Sorensen
[2018-04-21] MEDS: Pantoprazole 40 mg Susp UD PO SCH (09:51)
[2018-04-21 09:59] LABS: BANDS 4 % (0-2); EOSINOPHIL 1 % (0-4); LYMPHOCYTE 6 % (20-40); MONOCYTE 4 % (0-10); NEUTROPHIL 85 % (50-75); NUCLEATED RED BLOOD CELL 1 % (0-0); PLATELET ESTIMATE NORMAL (NORMAL); TOTAL CELLS COUNTED 100
[2018-04-21 10:00] LABS: ANISOCYTOSIS SLIGHT; HYPOCHROMIC SLIGHT; POIKILOCYTOSIS SLIGHT
[2018-04-22] MEDS: (Lantus) Insulin Glargine, Recombinant SC SCH (08:30)
[2018-04-22] MEDS: (Novolog) Insulin Aspart, Recombinant 100 u/ml 10 ml vial SC SCH ×4 (08:30→21:53)
[2018-04-22 09:01] LABS: BASO % 0.2 % (0.0-2.0); EOS # 0.1 K/uL (0.0-0.7); EOS % 0.5 % (0.0-4.0); HEMOGLOBIN 11.8 g/dL (12.0-18.0); LYMPH # 1.3 K/uL (1.0-4.3); LYMPH % 9.7 % (20.0-40.0); MEAN CELL VOLUME 90.4 fL (80.0-94.0); MEAN CORPUSCULAR HEMOGLOBIN 29.3 pg (27.0-31.0); MEAN CORPUSCULAR HGB CONC 32.4 g/dL (33.0-37.0); MONO # 0.5 K/uL (0.0-0.8); MONO % 4.1 % (0.0-10.0); NEUT # 11.1 K/uL (1.8-7.0); NEUT % 85.5 % (50.0-75.0); NRBC % 1.1 % (0.0-2.0); PLATELET COUNT 235 K/uL (130-400); RBC 4.02 Mil/uL (4.40-5.90); RED CELL DISTRIBUTION WIDTH 14.8 % (11.5-14.5)
[2018-04-22 09:18] LABS: ALB/GLOB RATIO 0.9 (1.0-2.1); ALBUMIN 3.1 g/dL (3.5-5.0); ALT/SGPT 17 U/L (21-72); AST/SGOT 32 U/L (17-59); BLOOD UREA NITROGEN 32 mg/dL (9-20); GFR NON-AFRICAN AMERICAN 55
[2018-04-22 10:00] LABS: EOSINOPHIL 1 % (0-4); LYMPHOCYTE 10 % (20-40); MONOCYTE 5 % (0-10); NEUTROPHIL 84 % (50-75); NUCLEATED RED BLOOD CELL 1 % (0-0); PLATELET ESTIMATE NORMAL (NORMAL); TOTAL CELLS COUNTED 100
[2018-04-22 10:02] LABS: GIANT PLATELETS PRESENT; LARGE PLATELETS PRESENT
[2018-04-22] MEDS: Pantoprazole 40 mg Susp UD PO SCH (10:44)
[2018-04-22 12:20] LABS: ABG ALLEN TEST POS; ARTERIAL BLOOD GAS HCO3 28.6 mmol/L (21-28); ARTERIAL BLOOD GAS HEMOGLOBIN 9.8 g/dL (11.7-17.4); ARTERIAL BLOOD GAS O2 SAT 95.8 % (95-98); ARTERIAL BLOOD GAS PCO2 31 mm/Hg (35-45); ARTERIAL BLOOD GAS PH 7.55 (7.35-7.45); ARTERIAL BLOOD GAS PO2 63 mm/Hg (80-100); ARTERIAL BLOOD GAS TCO2 28.1 mmol/L (22-28)
--- NOTE | 2018-04-22 13:12 | CP.PCM.PN ---
<Cherelle Arambula - Last Filed: 04/22/18 14:20> Subjective - Date & Time of Evaluation Date of Evaluation: 04/22/18 Time of Evaluation: 09:11 - Subjective Subjective: PGY-1 Cherelle Arambula D.O. Medicine progress note for Dr. Sorensen's service: Patient was seen and examined this morning. Son and at bedside. Patient is in bed, moving all of his limbs around. He follows some commands. He is not really conversant today. Patient's son explained that family would like to take him home in [place] for a couple of days before flying him to [facility]. Passport was obtained. However, patient continues to desaturate without supplemental O2, and he does not have home O2. Objective - Vital Signs/Intake and Output Vital Signs (last 24 hours): Temp Pulse Resp BP Pulse Ox 97.7 F 71 20 100/68 72 L 04/22/18 08:00 04/22/18 08:00 04/22/18 08:00 04/22/18 08:00 04/22/18 08:00 Intake and Output: 04/22/18 04/22/18 06:59 18:59 Intake Total 250 Output Total 1 Balance 250 -1 - Medications Medications: Current Medications Aspirin (Ecotrin) 81 mg PO DAILY [facility] Last Admin: 04/22/18 10:41 Dose: 81 mg Heparin Sodium (Porcine) (Heparin) 5,000 units SC Q8 [facility] Last Admin: 04/22/18 07:00 Dose: 5,000 units Insulin Aspart (Novolog) 0 unit SC [facility]; Protocol Last Admin: 04/22/18 12:21 Dose: 4 units Losartan Potassium (Cozaar) 25 mg PO DAILY [facility] Last Admin: 04/22/18 10:44 Dose: 25 mg [facility] Metoprolol Tartrate (Lopressor) 5 mg IVP Q6 PRN PRN Reason: elevated blood pressure Last Admin: 03/31/18 06:09 Dose: 5 mg Metoprolol Tartrate (Lopressor) 25 mg PO BID [facility] Last Admin: 04/22/18 10:41 Dose: Not Given Pantoprazole Sodium (Protonix Susp) 40 mg PO DAILY [facility] Last Admin: 04/22/18 10:44 Dose: 40 mg Prednisone (Prednisone Tab) 5 mg PO DAILY [facility] Rosuvastatin Calcium (Crestor) 10 mg PO HS [facility] Last Admin: 04/21/18 21:17 Dose: 10 mg Sitagliptin Phosphate (Januvia) 100 mg PO DAILY [facility] Last Admin: 04/22/18 10:45 Dose: 100 mg Zolpidem Tartrate (Ambien) 5 mg PO HS PRN PRN Reason: Insomnia Last Admin: 04/20/18 22:00 Dose: 5 mg - Labs Labs: 04/22/18 08:55 04/22/18 08:55 PT 12.9 SECONDS (9.7-12.2) H 03/21/18 04:41 INR 1.2 03/21/18 04:41 APTT 51 SECONDS (21-34) H 03/24/18 06:35 - Constitutional Appears: No Acute Distress, Confused - Head Exam Head Exam: ATRAUMATIC, NORMAL INSPECTION - Eye Exam Eye Exam: EOMI, Normal appearance - ENT Exam ENT Exam: Mucous Membranes Moist - Neck Exam Neck Exam: Normal Inspection - Respiratory Exam Respiratory Exam: Decreased Breath Sounds. absent: Respiratory Distress Additional comments: NC at 5 L - Cardiovascular Exam Cardiovascular Exam: RRR, +S1, +S2 - GI/Abdominal Exam GI & Abdominal Exam: Soft. absent: Distended, Tenderness - Extremities Exam Extremities Exam: Normal Inspection - Neurological Exam Neurological Exam: Alert, Altered, Awake. absent: Oriented x3 - Skin Skin Exam: Dry, Normal Color, Warm Assessment and Plan - Assessment and Plan (Free Text) Assessment: Patient is a 67 yo male with a history of pulmonary fibrosis, COPD, HTN, and T2DM who presented to the ED with SOB. He coded in the ED on 03/19 and was then managed in the ICU. Extubated on 03/24. Cardiac cath at [facility] on 03/24. PEG on 03/30, now removed as patient tolerating PO. Patient starting to become more alert and responsive. Patient does not qualify for any rehab/alf care facility as he does not have insurance. Patient's family wishes to take him to [facility]. However, patient is desaturating into the 70s when on room air. Recommended continued aggressive PT/OT/ST while in [place]. Educated family on diet control due to persistently elevated sugars in the setting of prednisone use. Plan: Altered mental status, improving- Encephalopathy vs anoxic brain injury - Head CT (03/19/18): 9x11mm Right middle cerebral artery aneurysm - Head CT (03/22/18): Mild generalized volume loss. Previously noted right MCA aneurysm. - MRI brain (04/05/18): Age-related degenerative changes are reiterated which appear age-appropriate. No definite acute intracranial findings by standard MR criteria. Motion artifacts limit the examination across numerous sequences in this exam. - 24hr EEG 03/29-03/30: severe encepholopathy/coma state. No epileptiform discharges but it does not rule out seizure disorder. - s/p PEG placement 03/26/18 - Removed as patient now tolerating PO diet with adequate calories - Ambien 5 mg PO QHS - Off antibiotics - Neurology consulted (Otto/Pierre) - ID consulted (Barry)- antiobitoics through 04/05 - Surgery consulted (Andrew)- s/p PEG 03/26 - PT/OT/ST Pulmonary fibrosis, chronic, severe - Patient desaturating into 70s on RA - CXR (04/22/18): Interval worsening pulmonary edema. Interval infiltrates not excluded. Small left pleural effusion. - CT chest (03/23/18): centrilobular emphysema and upper lobe pulmonary fibrosis - O2 via NC - Duoneb Q6H - Prednisone 10 mg PO daily - Start Lasix 40 mg IV Q12H - Pulmonology consulted (Martin) Cardiopulmonary arrest - On admission 03/19, Initial rhythm asytole, Epi x 3 given, went into VF/VT requiring shock and Amiodarone 300mg. Elevated troponin,EKG LBBB(old). Echo reviewed with precision aircraft structure assembler in the ICU: preserved LV function, anteroseptal hypokinesis. Cardiac cath at [facility] on 03/24/18: non obstructive CAD - Monitor on telemetry - ASA 81 mg PO daily - Crestor 10 mg PEG QHS - Duoneb Q6H - Solumedrol 40 mg IV q12, changed from daily - ICU consulted - Cardiology consulted (Moira/Yury/Brina) - Pulmonology consulted (Martin) - PT/OT/ST Acute renal insufficiency, improving - Isolated elevated BUN- continue to monitor - Nephrology consulted (Sawyer) Type 2 diabetes mellitus, chronic - Accuchecks ACHS - Hypoglycemic protocol - ISS - Metformin 1000 mg PO BID - Crestor 10 mg PO QHS Hypertension, chronic - Vitals Q6H - Losartan 25 mg PO daily - Metoprolol tartrate 25 mg PO BID - Lopressor 5 mg IVP Q6H PRN Influenza, resolved - Tmax 98.4 - Leukocytosis stable - Influenza A positive on 03/20 - Legionella, strep pneumo, mycoplasma negative - Tamiflu 03/31-04/05 Ppx: VTE: Heparin 5000 unite SC Q8H, SCDs GI: Protonix 40mg PO daily Code status: full code- Palliative consult- patient and family want him to go back to [facility] when able Case discussed with attending, Dr. Sorensen. <José Luis Sorensen - Last Filed: 04/22/18 16:52> Objective - Vital Signs/Intake and Output Vital Signs (last 24 hours): Temp Pulse Resp BP Pulse Ox 97.4 F L 71 20 100/68 72 L 04/22/18 16:00 04/22/18 08:00 04/22/18 08:00 04/22/18 14:16 04/22/18 08:00 Intake and Output: 04/22/18 04/22/18 06:59 18:59 Intake Total 250 480 Output Total 1 Balance 250 479 - Medications Medications: Current Medications Aspirin (Ecotrin) 81 mg PO DAILY [facility] Last Admin: 04/22/18 10:41 Dose: 81 mg Furosemide (Lasix) 40 mg IVP Q12 [facility] Last Admin: 04/22/18 14:16 Dose: 40 mg Heparin Sodium (Porcine) (Heparin) 5,000 units SC Q8 [facility] Last Admin: 04/22/18 13:59 Dose: 5,000 units Insulin Aspart (Novolog) 0 unit SC ACHS [facility]; Protocol Last Admin: 04/22/18 12:21 Dose: 4 units Losartan Potassium (Cozaar) 25 mg PO DAILY [facility] Last Admin: 04/22/18 10:44 Dose: 25 mg Metformin [facility] (Glucophage) [facility] Metoprolol Tartrate (Lopressor) 5 mg IVP Q6 PRN PRN Reason: elevated blood pressure Last Admin: 03/31/18 06:09 Dose: 5 mg Metoprolol Tartrate (Lopressor) 25 mg PO BID [facility] Last Admin: 04/22/18 10:41 Dose: Not Given Pantoprazole Sodium (Protonix Susp) 40 mg PO DAILY [facility] Last Admin: 04/22/18 10:44 Dose: 40 mg Prednisone (Prednisone Tab) 10 mg PO DAILY [facility] Rosuvastatin Calcium (Crestor) 10 mg PO HS [facility] Last Admin: 04/21/18 21:17 Dose: 10 mg Sitagliptin Phosphate (Januvia) 100 mg PO DAILY [facility] Last Admin: 04/22/18 10:45 Dose: 100 mg Zolpidem Tartrate (Ambien) 5 mg PO HS PRN PRN Reason: Insomnia Last Admin: 04/20/18 22:00 Dose: 5 mg - Labs Labs: 04/22/18 08:55 04/22/18 08:55 PT 12.9 SECONDS (9.7-12.2) H 03/21/18 04:41 INR 1.2 03/21/18 04:41 APTT 51 SECONDS (21-34) H 03/24/18 06:35 Attending/Attestation - Attestation I have personally seen and examined this patient.: Yes I have fully participated in the care of the patient.: Yes I have reviewed all pertinent clinical information, including history, physical exam and plan: Yes Notes (Text): 04/22/18 16:49 Medical attending: Patient was seen and examined by me. Agree with the above note by the resident The patient was not in any acute distress We had a very long discussion with the family and they very much want to bring him back home in preparation for a long flight back to [facility] There are several logistical difficulties, we have to try to aquire a wheel chair, also he will need a condom cathter, and also will need medications for anxiety during the flight. The patient is noticed to have desaturations when he is not wearing oxygen - we got a pCXRAY and we will give IV lasix to see if this helps since he may have a lot of venous congestion. Hopefully this will help bring up SpO2s. Also there is a history of pulmonary fibrosis and we increased the PO prednisone as well José Luis Sorensen
--- NOTE | 2018-04-22 14:07 | RAD ---
Date of service: 04/22/2018 HISTORY: hypoxia COMPARISON: 03/30/2018 chest x-ray. CT chest March 2018 FINDINGS: LUNGS: Interval increased coalescent interstitial and interval increase coalescent airspace opacities over each lung left greater than right. Right mostly mid section left more diffuse. Patient has known extensive bullous and bleb emphysematous changes. Calcified granuloma projects inferior to left hilum per CT seen more posterior in left lung PLEURA: Small left pleural effusion suspect.A at the left lateral and inferior lung base a prior large left basal bulla was present. There is a relative radiolucency left lateral to the tortuous tracheal air column into the neck-this is also compatible with an known prominent left bulla here as per an earlier CT chest from 03/02/2015. No interval pneumothorax appreciated. CARDIOVASCULAR: No aortic atherosclerotic calcification present. Cardiomegaly-similar interval increased pulmonary vascular congestion. Interval increased pulmonary interstitial edema. OSSEOUS STRUCTURES: Known prior left rib fractures not significantly displaced. Acute to subacute. VISUALIZED UPPER ABDOMEN: Normal. OTHER FINDINGS: None. IMPRESSION: Interval worsening pulmonary edema inferred. Interval concomitant infiltrates not excluded. Follow-up recommended. Small left pleural effusion. Extensive known bullous and blood changes. Large similar-appearing left lung calcified granuloma
[2018-04-22] MEDS ORDERED: MethylPREDNISolone 40 mg Vial IVP STA (18:08)
[2018-04-22] MEDS ORDERED: Albuterol-Ipratrop 3 mg / 0.5 (3 ml) UD INH STA (18:10)
[2018-04-22 18:24] LABS: ABG ALLEN TEST POS; ARTERIAL BLOOD GAS HCO3 28.8 mmol/L (21-28); ARTERIAL BLOOD GAS O2 SAT 92.8 % (95-98); ARTERIAL BLOOD GAS PCO2 33 mm/Hg (35-45); ARTERIAL BLOOD GAS PH 7.53 (7.35-7.45); ARTERIAL BLOOD GAS PO2 56 mm/Hg (80-100); ARTERIAL BLOOD GAS TCO2 28.6 mmol/L (22-28)
--- NOTE | 2018-04-22 18:41 | RAD ---
HISTORY: sob COMPARISON: Chest x-ray performed earlier the same day. TECHNIQUE: Chest, one view. FINDINGS: LUNGS: Moderate to severe pulmonary edema. Large left lung calcified granuloma re-identified. Left lower lobe bulla. Radiolucency lateral and to the left of the trachea consistent with known bulla. PLEURA: No significant pleural effusion identified. No definite pneumothorax . CARDIOVASCULAR: Cardiomegaly. Atherosclerotic calcifications of the aorta. OSSEOUS STRUCTURES: Osseous demineralization. Degenerative changes. VISUALIZED UPPER ABDOMEN: Unremarkable. OTHER FINDINGS: None. IMPRESSION: Moderate to severe edema. Cardiomegaly. Additional findings as above.
[2018-04-22] MEDS ORDERED: hydrOXYzine HCl 25 mg/ml Inj IM ONE (20:37)
--- NOTE | 2018-04-22 20:38 | CP.PCM.PCO ---
Physician Communication Note - Physician Communication Note Physician Communication Note: Please see above.
[2018-04-23] MEDS: MethylPREDNISolone 40 mg Vial IVP SCH ×3 (05:44→21:50)
--- NOTE | 2018-04-23 07:00 | CP.PCM.PN ---
<Rachel Moore - Last Filed: 04/23/18 16:18> Subjective - Date & Time of Evaluation Date of Evaluation: 04/23/18 Time of Evaluation: 08:40 - Subjective Subjective: Patient examined at bedside, sleeping with writing body movements. CP reports he had just quieted down as family left room. Maintained on BiPAP overnight with recent transition to GA, tolerating well with no respiratory distress. Received notice from nursing that BS were elevated since restarting IVCCS. Objective - Vital Signs/Intake and Output Vital Signs (last 24 hours): Temp Pulse Resp BP Pulse Ox 97.7 F 93 H 20 106/73 100 04/23/18 00:00 04/23/18 02:31 04/23/18 00:00 04/23/18 00:00 04/23/18 00:00 Intake and Output: 04/23/18 04/23/18 06:59 18:59 Intake Total 250 Balance 250 - Medications Medications: Current Medications Aspirin (Ecotrin) 81 mg PO DAILY [facility] Last Admin: 04/22/18 10:41 Dose: 81 mg Furosemide (Lasix) 40 mg IVP Q12 [facility] Last Admin: 04/22/18 14:16 Dose: 40 mg Heparin Sodium (Porcine) (Heparin) 5,000 units SC Q8 [facility] Last Admin: 04/23/18 05:44 Dose: 5,000 units Insulin Aspart (Novolog) 0 unit SC [facility]; Protocol Last Admin: 04/22/18 21:53 Dose: Not Given Losartan Potassium (Cozaar) 25 mg PO DAILY [facility] Last Admin: 04/22/18 10:44 Dose: 25 mg Metformin HCl (Glucophage) 1,000 mg PO BIDCC [facility] Last Admin: 04/22/18 17:37 Dose: 1,000 mg Methylprednisolone (Solu-Medrol) 40 mg IVP Q8 [facility] Last Admin: 04/23/18 05:44 Dose: 40 mg Metoprolol Tartrate (Lopressor) 5 mg IVP Q6 PRN PRN Reason: elevated blood pressure Last Admin: 03/31/18 06:09 Dose: 5 mg Metoprolol Tartrate (Lopressor) 25 mg PO BID [facility] Last Admin: 04/22/18 17:38 Dose: Not Given Pantoprazole Sodium (Protonix Susp) 40 mg PO DAILY [facility] Last Admin: 04/22/18 10:44 Dose: 40 mg Rosuvastatin Calcium (Crestor) 10 mg PO HS [facility] Last Admin: 04/22/18 21:42 Dose: 10 mg Sitagliptin Phosphate (Januvia) 100 mg PO DAILY [facility] Last Admin: 04/22/18 10:45 Dose: 100 mg Zolpidem Tartrate (Ambien) 5 mg PO HS PRN PRN Reason: Insomnia Last Admin: 04/20/18 22:00 Dose: 5 mg - Labs Labs: 04/22/18 08:55 04/22/18 08:55 PT 12.9 SECONDS (9.7-12.2) H 03/21/18 04:41 INR 1.2 03/21/18 04:41 APTT 51 SECONDS (21-34) H 03/24/18 06:35 - Constitutional Appears: Non-toxic, No Acute Distress - Head Exam Head Exam: ATRAUMATIC, NORMAL INSPECTION, NORMOCEPHALIC - Eye Exam Eye Exam: Normal appearance - ENT Exam ENT Exam: Mucous Membranes Moist, Normal Exam - Neck Exam Neck Exam: Normal Inspection - Respiratory Exam Respiratory Exam: NORMAL BREATHING PATTERN. absent: Accessory Muscle Use, Respiratory Distress - GI/Abdominal Exam GI & Abdominal Exam: absent: Distended - Extremities Exam Extremities Exam: Normal Inspection (muscle wasting). absent: Pedal Edema - Skin Skin Exam: Dry, Intact, Normal Color, Warm Assessment and Plan - Assessment and Plan (Free Text) Assessment: Patient is a 67 yo male with a history of pulmonary fibrosis, COPD, HTN, and T2DM who presented to the ED with SOB. He coded in the ED on 03/19 and was then managed in the ICU. Extubated on 03/24. Cardiac cath at [facility] on 03/24. PEG on 03/30, now removed as patient tolerating PO. Currently presenting with worsening respiratory distress Plan: Respiratory Distress, acute Worsening spO2 - BiPAP PRN - f/u CTA r/o PE; ativan for pre imaging agitation - Solu-medrol 40mg IVP Q8 Altered mental status, improving- Encephalopathy vs anoxic brain injury - Head CT (03/19/18): 9x11mm Right middle cerebral artery aneurysm - Head CT (03/22/18): Mild generalized volume loss. Previously noted right MCA aneurysm. - MRI brain (04/05/18): Age-related degenerative changes are reiterated which juliann ear age-appropriate. No definite acute intracranial findings by standard MR criteria. Motion artifacts limit the examination across numerous sequences in this exam. - 24hr EEG 03/29-03/30: severe encepholopathy/coma state. No epileptiform discharges but it does not rule out seizure disorder. - s/p PEG placement 03/26/18 - Removed as patient now tolerating PO diet with adequate calories - Ambien 5 mg PO QHS - Neurology consulted (Otto/Pierre) - ID consulted (Barry)- antiobitoics through 04/05 - Surgery consulted (Andrew)- s/p PEG 03/26 - PT/OT/ST Pulmonary fibrosis, chronic, severe - Patient desaturating into 70s on RA - CXR (04/22/18): Interval worsening pulmonary edema. Interval infiltrates not excluded. Small left pleural effusion. - CT chest (03/23/18): centrilobular emphysema and upper lobe pulmonary fibrosis - O2 via NC, BiPAP PRN - Stopped Prednisone 10 mg PO daily - Started Solu-medrol 40mg IV Q8 - Start Lasix 40 mg IV Q12H - Pulmonology consulted (Martin) Cardiopulmonary arrest - On admission 03/19, Initial rhythm asytole, Epi x 3 given, went into VF/VT requiring shock and Amiodarone 300mg. Elevated troponin,EKG LBBB(old). Echo reviewed with [employer] operations specialist in the ICU: preserved LV function, anteroseptal hypokinesis. Cardiac cath at [facility] on 03/24/18: non obstructive CAD - ASA 81 mg PO daily - Crestor 10 mg PEG QHS - Duoneb Q6H - Solumedrol 40 mg IV q12, changed from daily - ICU consulted - Cardiology consulted (Moira/Yury/Brina) - Pulmonology consulted (Martin) - PT/OT/ST Acute renal insufficiency, worsening - Cr 1.4 today - Nephrology consulted (Sawyer) Type 2 diabetes mellitus, chronic Elevated 2/2 IVCCS - Accuchecks ACHS - Hypoglycemic protocol - Started Novolog 10U ACTID - Started Lantus 20U sc HS - ISS - Hold Metformin 1000 mg PO BID and Januvia 100mg PO QD - Crestor 10 mg PO QHS Hypertension, chronic - Vitals Q6H - Losartan 25 mg PO daily - Metoprolol tartrate 25 mg PO BID - Lopressor 5 mg IVP Q6H PRN Influenza, resolved - Tmax 98.4 - Leukocytosis stable - Influenza A positive on 03/20 - Legionella, strep pneumo, mycoplasma negative - Tamiflu 03/31-04/05 Ppx: VTE: Heparin 5000 unite SC Q8H, SCDs GI: Protonix 40mg PO daily Code status: full code- Palliative consult- patient and family want him to go back to [facility] when able Discussed with Dr. Sorensen -Rachel Moore, PGY-1 <José Luis Sorensen H - Last Filed: 04/23/18 16:27> Objective - Vital Signs/Intake and Output Vital Signs (last 24 hours): Temp Pulse Resp BP Pulse Ox 97.1 F L 91 H 20 115/75 100 04/23/18 09:13 04/23/18 09:13 04/23/18 09:13 04/23/18 09:29 04/23/18 00:00 Intake and Output: 04/23/18 04/23/18 06:59 18:59 Intake Total 250 680 Balance 250 680 - Medications Medications: Current Medications Aspirin (Ecotrin) 81 mg PO DAILY [facility] Last Admin: 04/23/18 09:29 Dose: 81 mg Dextrose (Dextrose 50% Inj) 0 ml IV STAT PRN; Protocol PRN Reason: Hypoglycemia Protocol Dextrose (Glutose 15) 0 gm PO ONCE PRN; Protocol PRN Reason: Hypoglycemia Protocol Furosemide (Lasix) 40 mg IVP Q12 [facility] Last Admin: 04/23/18 09:29 Dose: 40 mg Glucagon (Glucagen Diagnostic Kit) 0 mg IM STAT PRN; Protocol PRN Reason: Hypoglycemia Protocol Heparin Sodium (Porcine) (Heparin) 5,000 units SC Q8 [facility] Last Admin: 04/23/18 14:41 Dose: 5,000 units Dextrose (Dextrose 5% In Water 1000 Ml) 1,000 mls @ 0 mls/hr IV .Q0M PRN; Protocol PRN Reason: Hypoglycemia Protocol Insulin Aspart (Novolog) 0 unit SC ACHS [facility]; Protocol Last Admin: 04/23/18 11:44 Dose: 10 units Insulin Aspart (Novolog) 10 unit SC ACTID [facility] Insulin Glargine (Lantus) 20 unit SC HS [facility] Lorazepam (Ativan) 0.5 mg IVP ONCE PRN PRN Reason: Restlessness Last Admin: 04/23/18 16:02 Dose: 0.5 mg Losartan Potassium (Cozaar) 25 mg PO DAILY [facility] Last Admin: 04/23/18 09:29 Dose: 25 mg Metformin HCl (Glucophage) 1,000 mg PO BIDCC [facility] Last Admin: 04/23/18 08:30 Dose: 1,000 mg Methylprednisolone (Solu-Medrol) 40 mg IVP Q8 [facility] Last Admin: 04/23/18 14:42 Dose: 40 mg Metoprolol Tartrate (Lopressor) 5 mg IVP Q6 PRN PRN Reason: elevated blood pressure Last Admin: 03/31/18 06:09 Dose: 5 mg Metoprolol Tartrate (Lopressor) 25 mg PO BID [facility] Last Admin: 04/23/18 09:29 Dose: 25 mg Pantoprazole Sodium (Protonix Susp) 40 mg PO DAILY [facility] Last Admin: 04/23/18 09:29 Dose: 40 mg Rosuvastatin Calcium (Crestor) 10 mg PO HS [facility] Last Admin: 04/22/18 21:42 Dose: 10 mg Sitagliptin Phosphate (Januvia) 100 mg PO DAILY [facility] Last Admin: 04/23/18 09:29 Dose: 100 mg Zolpidem Tartrate (Ambien) 5 mg PO HS PRN PRN Reason: Insomnia Last Admin: 04/20/18 22:00 Dose: 5 mg - Labs Labs: 04/23/18 07:00 04/23/18 07:00 PT 12.9 SECONDS (9.7-12.2) H 03/21/18 04:41 INR 1.2 03/21/18 04:41 APTT 51 SECONDS (21-34) H 03/24/18 06:35 Attending/Attestation - Attestation I have personally seen and examined this patient.: Yes I have fully participated in the care of the patient.: Yes I have reviewed all pertinent clinical information, including history, physical exam and plan: Yes Notes (Text): 04/23/18 16:24 Medical attending: Patient was seen and examined by me. Agree with the above note by the resident The patient was calm and not short of breath when we saw him. Yesterday we started IV lasix and increased the solumedrol IV Family member - his son wants to take patient home and then to airport to fly back to [facility] as soon as possible however given the low SpO2 readings this maybe logistically difficult The airlines has papers asking specifically for ABGs and the most recent ones are not good Will continue with IV lasix and also the IV solumedrol to help with the breathing and hopefully this will help with trhe FiO2 before he leaves José Luis Sorensen
[2018-04-23 07:39] LABS: ALB/GLOB RATIO 0.9 (1.0-2.1); ALBUMIN 2.9 g/dL (3.5-5.0); ALT/SGPT 14 U/L (21-72); AST/SGOT 35 U/L (17-59); BLOOD UREA NITROGEN 52 mg/dL (9-20); CALCIUM 8.7 mg/dl (8.6-10.4); GFR NON-AFRICAN AMERICAN 51
[2018-04-23 07:41] LABS: BASO % 0.3 % (0.0-2.0); EOS % 0.1 % (0.0-4.0); HEMOGLOBIN 11.6 g/dL (12.0-18.0); LYMPH # 0.5 K/uL (1.0-4.3); MEAN CELL VOLUME 90.6 fL (80.0-94.0); MONO # 0.2 K/uL (0.0-0.8); NEUT # 9.9 K/uL (1.8-7.0); NEUT % 92.6 % (50.0-75.0); NRBC % 0.2 % (0.0-2.0); PLATELET COUNT 204 K/uL (130-400); RBC 4.01 Mil/uL (4.40-5.90); RED CELL DISTRIBUTION WIDTH 14.7 % (11.5-14.5); WHITE BLOOD COUNT 10.7 K/uL (4.8-10.8)
[2018-04-23] MEDS: (Novolog) Insulin Aspart, Recombinant 100 u/ml 10 ml vial SC SCH ×5 (08:30→21:51)
[2018-04-23] MEDS: Pantoprazole 40 mg Susp UD PO SCH (09:29)
[2018-04-23 09:35] LABS: BANDS 3 % (0-2); LYMPHOCYTE 8 % (20-40); MONOCYTE 4 % (0-10); NEUTROPHIL 85 % (50-75); PLATELET ESTIMATE NORMAL (NORMAL); TOTAL CELLS COUNTED 100
[2018-04-23 09:36] LABS: ANISOCYTOSIS SLIGHT; HYPOCHROMIC SLIGHT; POIKILOCYTOSIS SLIGHT
[2018-04-23] MEDS ORDERED: Dextrose 50% SYRINGE Inj (50 ml) IV PRN (11:23)
[2018-04-23] MEDS ORDERED: Glucagon Recombinant 1 mg Inj IM PRN (11:23)
[2018-04-23] MEDS ORDERED: (Novolog) Insulin Aspart, Recombinant 100 u/ml 10 ml vial SC SCH (11:30)
--- NOTE | 2018-04-23 11:47 | RAD ---
Date of service: 04/23/2018 HISTORY: eval fluid status COMPARISON: 04/22/2018 FINDINGS: LUNGS: There is redemonstration of diffuse pulmonary edema not significantly changed since the prior examination. The lungs are well inflated. There is a stable calcified nodule in the left perihilar region. PLEURA: Small left pleural effusion. No pneumothorax. CARDIOVASCULAR: Mild cardiomegaly. No aortic atherosclerotic calcifications present. OSSEOUS STRUCTURES: Within normal limits for the patient's age. VISUALIZED UPPER ABDOMEN: Normal. OTHER FINDINGS: None. IMPRESSION: Little interval change in diffuse pulmonary edema.
[2018-04-23] MEDS ORDERED: Iodixanol 320 MG/ML 100 ML BOTTLE IV ONE (14:22)
[2018-04-23] MEDS ORDERED: (Lantus) Insulin Glargine, Recombinant SC SCH (22:00)
--- NOTE | 2018-04-24 04:01 | CP.PCM.PN ---
<Kae Wall - Last Filed: 04/24/18 03:58> Subjective - Date & Time of Evaluation Date of Evaluation: 04/24/18 Time of Evaluation: 03:58 - Subjective Subjective: PGY-1 Medicine Progress note for Dr. Sorensen's service S/E at bedside. Was agitated overnight Put on high flow oxygen as patient hypoxia can induce agitation. Limited ROS due to brain injury. Objective - Vital Signs/Intake and Output Vital Signs (last 24 hours): Temp Pulse Resp BP Pulse Ox 97.1 F L 90 20 106/63 100 04/24/18 00:00 04/24/18 00:00 04/24/18 00:00 04/24/18 00:00 04/23/18 00:00 Intake and Output: 04/23/18 04/24/18 18:59 06:59 Intake Total 680 250 Balance 680 250 - Medications Medications: Current Medications Aspirin (Ecotrin) 81 mg PO DAILY [facility] Last Admin: 04/23/18 09:29 Dose: 81 mg Dextrose (Dextrose 50% Inj) 0 ml IV STAT PRN; Protocol PRN Reason: Hypoglycemia Protocol Dextrose (Glutose 15) 0 gm PO ONCE PRN; Protocol PRN Reason: Hypoglycemia Protocol Furosemide (Lasix) 40 mg IVP Q12 [facility] Last Admin: 04/23/18 09:29 Dose: 40 mg Glucagon (Glucagen Diagnostic Kit) 0 mg IM STAT PRN; Protocol PRN Reason: Hypoglycemia Protocol Heparin Sodium (Porcine) (Heparin) 5,000 units SC Q8 [facility] Last Admin: 04/23/18 21:50 Dose: 5,000 units Dextrose (Dextrose 5% In Water 1000 Ml) 1,000 mls @ 0 mls/hr IV .Q0M PRN; Protocol PRN Reason: Hypoglycemia Protocol Insulin Aspart (Novolog) 0 unit SC ACHS [facility]; Protocol Last Admin: 04/23/18 21:51 Dose: 4 units Insulin Aspart (Novolog) 10 unit SC ACTID [facility] Last Admin: 04/23/18 17:53 Dose: 10 units Insulin Glargine (Lantus) 20 unit SC HS [facility] Lorazepam (Ativan) 0.5 mg IVP ONCE PRN PRN Reason: Restlessness Last Admin: 04/23/18 16:02 Dose: 0.5 mg Losartan Potassium (Cozaar) 25 mg PO DAILY [facility] Last Admin: 04/23/18 09:29 Dose: 25 mg Metformin HCl (Glucophage) 1,000 mg PO BIDCC [facility] Last Admin: 04/23/18 08:30 Dose: 1,000 mg Methylprednisolone (Solu-Medrol) 40 mg IVP Q8 [facility] Last Admin: 04/23/18 21:50 Dose: 40 mg Metoprolol Tartrate (Lopressor) 5 mg IVP Q6 PRN PRN Reason: elevated blood pressure Last Admin: 03/31/18 06:09 Dose: 5 mg Metoprolol Tartrate (Lopressor) 25 mg PO BID [facility] Last Admin: 04/23/18 17:58 Dose: Not Given Pantoprazole Sodium (Protonix Susp) 40 mg PO DAILY [facility] Last Admin: 04/23/18 09:29 Dose: 40 mg Rosuvastatin Calcium (Crestor) 10 mg PO HS [facility] Last Admin: 04/23/18 21:49 Dose: 10 mg Sitagliptin Phosphate (Januvia) 100 mg PO DAILY [facility] Last Admin: 04/23/18 09:29 Dose: 100 mg Zolpidem Tartrate (Ambien) 5 mg PO HS PRN PRN Reason: Insomnia Last Admin: 04/20/18 22:00 Dose: 5 mg - Labs Labs: 04/23/18 07:00 04/23/18 07:00 PT 12.9 SECONDS (9.7-12.2) H 03/21/18 04:41 INR 1.2 03/21/18 04:41 APTT 51 SECONDS (21-34) H 03/24/18 06:35 - Additional Findings Additional findings: - Constitutional Appears: Agitated - Head Exam Head Exam: ATRAUMATIC, NORMAL INSPECTION, NORMOCEPHALIC - Eye Exam Eye Exam: Normal appearance - ENT Exam ENT Exam: Mucous Membranes Moist, Normal Exam - Neck Exam Neck Exam: Normal Inspection - Respiratory Exam Respiratory Exam: NORMAL BREATHING PATTERN. absent: Accessory Muscle Use, Respiratory Distress - GI/Abdominal Exam GI & Abdominal Exam: absent: Distended - Extremities Exam Extremities Exam: Normal Inspection (muscle wasting). absent: Pedal Edema - Skin Skin Exam: Dry, Intact, Normal Color, Warm Assessment and Plan - Assessment and Plan (Free Text) Assessment: Patient is a 67 yo male with a history of pulmonary fibrosis, COPD, HTN, and T2DM who presented to the ED with SOB. He coded in the ED on 03/19 and was then managed in the ICU. Extubated on 03/24. Cardiac cath at [facility] on 03/24. PEG on 03/30, now removed as patient tolerating PO. Currently presenting with worsening respiratory distress Respiratory Distress, acute Worsening spO2 - BiPAP PRN - f/u CTA r/o PE; ativan for pre imaging agitation - Solu-medrol 40mg IVP Q8 Altered mental status, improving- Encephalopathy vs anoxic brain injury - Head CT (03/19/18): 9x11mm Right middle cerebral artery aneurysm - Head CT (03/22/18): Mild generalized volume loss. Previously noted right MCA aneurysm. - MRI brain (04/05/18): Age-related degenerative changes are reiterated which appear age-appropriate. No definite acute intracranial findings by standard MR criteria. Motion artifacts limit the examination across numerous sequences in this exam. - 24hr EEG 03/29-03/30: severe encepholopathy/coma state. No epileptiform discharges but it does not rule out seizure disorder. - s/p PEG placement 03/26/18 - Removed as patient now tolerating PO diet with adequate calories - Ambien 5 mg PO QHS - Neurology consulted (Otto/Pierre) - ID consulted (Barry)- antiobitoics through 04/05 - Surgery consulted (Andrew)- s/p PEG 03/26 - PT/OT/ST Pulmonary fibrosis, chronic, severe - Patient desaturating into 70s on RA - CXR (04/22/18): Interval worsening pulmonary edema. Interval infiltrates not excluded. Small left pleural effusion. - CT chest (03/23/18): centrilobular emphysema and upper lobe pulmonary fibrosis - O2 via NC, BiPAP PRN - Stopped Prednisone 10 mg PO daily - Started Solu-medrol 40mg IV Q8 - Start Lasix 40 mg IV Q12H - Pulmonology consulted (Martin) Cardiopulmonary arrest - On admission 03/19, Initial rhythm asytole, Epi x 3 given, went into VF/VT requiring shock and Amiodarone 300mg. Elevated troponin,EKG LBBB(old). Echo reviewed with social media marketing specialist in the ICU: preserved LV function, anteroseptal hypokinesis. Cardiac cath at [facility] on 03/24/18: non obstructive CAD - ASA 81 mg PO daily - Crestor 10 mg PEG QHS - Solumedrol 40 mg IV q12, changed from daily - ICU consulted - Cardiology consulted (Moira/Yury/Brina) - Pulmonology consulted (Martin) - PT/OT/ST Acute renal insufficiency, worsening - Cr 1.4 today - Nephrology consulted (Sawyer) Type 2 diabetes mellitus, chronic Elevated 2/2 IVCCS - Accuchecks ACHS - Hypoglycemic protocol - Started Novolog 10U ACTID - Started Lantus 20U sc HS - ISS - Hold Metformin 1000 mg PO BID and Januvia 100mg PO QD - Crestor 10 mg PO QHS Hypertension, chronic - Vitals Q6H - Losartan 25 mg PO daily - Metoprolol tartrate 25 mg PO BID - Lopressor 5 mg IVP Q6H PRN Influenza, resolved - Tmax 98.4 - Leukocytosis stable - Influenza A positive on 03/20 - Legionella, strep pneumo, mycoplasma negative - Tamiflu 03/31-04/05 Ppx: VTE: Heparin 5000 unite SC Q8H, SCDs GI: Protonix 40mg PO daily Code status: full code- Palliative consult- patient and family want him to go back to [facility] when able Discussed with Dr. Franchesca Wall PGY-1 <José Luis Sorensen H - Last Filed: 04/24/18 12:21> Objective - Vital Signs/Intake and Output Vital Signs (last 24 hours): Temp Pulse Resp BP Pulse Ox 97.7 F 105 H 20 125/86 50 L 04/24/18 08:00 04/24/18 08:00 04/24/18 08:00 04/24/18 09:46 04/24/18 08:00 Intake and Output: 04/24/18 04/24/18 06:59 18:59 Intake Total 250 Balance 250 - Medications Medications: Current Medications Aspirin (Ecotrin) 81 mg PO DAILY [facility] Last Admin: 04/24/18 09:46 Dose: 81 mg Dextrose (Dextrose 50% Inj) 0 ml IV STAT PRN; Protocol PRN Reason: Hypoglycemia Protocol Dextrose (Glutose 15) 0 gm PO ONCE PRN; Protocol PRN Reason: Hypoglycemia Protocol Furosemide (Lasix) 20 mg IVP Q12 [facility] Glucagon (Glucagen Diagnostic Kit) 0 mg IM STAT PRN; Protocol PRN Reason: Hypoglycemia Protocol Heparin Sodium (Porcine) (Heparin) 5,000 units SC Q8 [facility] Last Admin: 04/24/18 05:21 Dose: 5,000 units Dextrose (Dextrose 5% In Water 1000 Ml) 1,000 mls @ 0 mls/hr IV .Q0M PRN; Protocol PRN Reason: Hypoglycemia Protocol Insulin Aspart (Novolog) 0 unit SC ACHS [facility]; Protocol Last Admin: 04/24/18 12:05 Dose: 3 units Insulin Aspart (Novolog) 10 unit SC ACTID [facility] Last Admin: 04/24/18 12:05 Dose: 10 units Insulin Glargine (Lantus) 20 unit SC HS [facility] Lorazepam (Ativan) 0.5 mg IVP ONCE PRN PRN Reason: Restlessness Last Admin: 04/23/18 16:02 Dose: 0.5 mg Losartan Potassium (Cozaar) 25 mg PO DAILY [facility] Last Admin: 04/24/18 09:46 Dose: 25 mg Metformin HCl (Glucophage) 1,000 mg PO BIDCC [facility] Last Admin: 04/23/18 08:30 Dose: 1,000 mg Methylprednisolone (Solu-Medrol) 40 mg IVP Q8 [facility] Last Admin: 04/24/18 05:19 Dose: 40 mg Metoprolol Tartrate (Lopressor) 5 mg IVP Q6 PRN PRN Reason: elevated blood pressure Last Admin: 03/31/18 06:09 Dose: 5 mg Metoprolol Tartrate (Lopressor) 25 mg PO BID [facility] Last Admin: 04/24/18 09:46 Dose: 25 mg Pantoprazole Sodium (Protonix Susp) 40 mg PO DAILY [facility] Last Admin: 04/24/18 09:46 Dose: 40 mg Rosuvastatin Calcium (Crestor) 10 mg PO HS [facility] Last Admin: 04/23/18 21:49 Dose: 10 mg Sitagliptin Phosphate (Januvia) 100 mg PO DAILY [facility] Last Admin: 04/23/18 09:29 Dose: 100 mg Zolpidem Tartrate (Ambien) 5 mg PO HS PRN PRN Reason: Insomnia Last Admin: 04/20/18 22:00 Dose: 5 mg - Labs Labs: 04/24/18 07:02 04/24/18 07:02 PT 12.9 SECONDS (9.7-12.2) H 03/21/18 04:41 INR 1.2 03/21/18 04:41 APTT 51 SECONDS (21-34) H 03/24/18 06:35 Attending/Attestation - Attestation I have personally seen and examined this patient.: Yes I have fully participated in the care of the patient.: Yes I have reviewed all pertinent clinical information, including history, physical exam and plan: Yes Notes (Text): 04/24/18 12:17 Medical attending: Patient was seen and examined by me, reviewed the above note by the resident and agree with the above The patient was too agitated with the Bipap and it was changed over to the HiFlo vapotherm. Decreased the lasix to 20 IV BID, continued with the IV solumedrol The patient's son was at bedside and I also spoke with daughter over speakerphone Explained to them that we understood they are trying to bring the patient back to [place] soon however with ABGs such as yesterday that it would not be safe. Daughter understands and verbalizes that we should try to wait again to hopfully see improvments in the ABG I did order a CTA yesterday however he was so moving around and agitated that it simply was not possible to do Daughter asked for medication for agitation, for now will try benadryl José Luis Sorensen
[2018-04-24] MEDS: MethylPREDNISolone 40 mg Vial IVP SCH ×3 (05:19→21:38)
[2018-04-24 07:25] LABS: BASO % 0.1 % (0.0-2.0); HEMOGLOBIN 11.6 g/dL (12.0-18.0); LYMPH # 0.5 K/uL (1.0-4.3); LYMPH % 3.9 % (20.0-40.0); MEAN CELL VOLUME 89.9 fL (80.0-94.0); MEAN CORPUSCULAR HEMOGLOBIN 29.6 pg (27.0-31.0); MEAN CORPUSCULAR HGB CONC 32.9 g/dL (33.0-37.0); MEAN PLATELET VOLUME 10.3 fL (7.2-11.7); MONO # 0.4 K/uL (0.0-0.8); MONO % 3.1 % (0.0-10.0); NEUT # 10.9 K/uL (1.8-7.0); NEUT % 92.9 % (50.0-75.0); NRBC % 0.4 % (0.0-2.0); PLATELET COUNT 244 K/uL (130-400); RBC 3.94 Mil/uL (4.40-5.90); RED CELL DISTRIBUTION WIDTH 14.3 % (11.5-14.5); WHITE BLOOD COUNT 11.8 K/uL (4.8-10.8)
--- NOTE | 2018-04-24 07:48 | CP.PCM.PN ---
Subjective - Date & Time of Evaluation Date of Evaluation: 04/24/18 Objective - Vital Signs/Intake and Output Vital Signs (last 24 hours): Temp Pulse Resp BP Pulse Ox 97.2 F L 92 H 20 104/62 91 L 04/24/18 05:23 04/24/18 05:23 04/24/18 05:23 04/24/18 05:23 04/24/18 05:23 Intake and Output: 04/24/18 04/24/18 06:59 18:59 Intake Total 250 Balance 250 - Medications Medications: Current Medications Aspirin (Ecotrin) 81 mg PO DAILY [facility] Last Admin: 04/23/18 09:29 Dose: 81 mg Dextrose (Dextrose 50% Inj) 0 ml IV STAT PRN; Protocol PRN Reason: Hypoglycemia Protocol Dextrose (Glutose 15) 0 gm PO ONCE PRN; Protocol PRN Reason: Hypoglycemia Protocol Furosemide (Lasix) 40 mg IVP Q12 [facility] Last Admin: 04/23/18 09:29 Dose: 40 mg Glucagon (Glucagen Diagnostic Kit) 0 mg IM STAT PRN; Protocol PRN Reason: Hypoglycemia Protocol Heparin Sodium (Porcine) (Heparin) 5,000 units SC Q8 [facility] Last Admin: 04/24/18 05:21 Dose: 5,000 units Dextrose (Dextrose 5% In Water 1000 Ml) 1,000 mls @ 0 mls/hr IV .Q0M PRN; Protocol PRN Reason: Hypoglycemia Protocol Insulin Aspart (Novolog) 0 unit SC ACHS [facility]; Protocol Last Admin: 04/23/18 21:51 Dose: 4 units Insulin Aspart (Novolog) 10 unit SC ACTID [facility] Last Admin: 04/23/18 17:53 Dose: 10 units Insulin Glargine (Lantus) 20 unit SC HS [facility] Lorazepam (Ativan) 0.5 mg IVP ONCE PRN PRN Reason: Restlessness Last Admin: 04/23/18 16:02 Dose: 0.5 mg Losartan Potassium (Cozaar) 25 mg PO DAILY [facility] Last Admin: 04/23/18 09:29 Dose: 25 mg Metformin HCl (Glucophage) 1,000 mg PO BIDCC [facility] Last Admin: 04/23/18 08:30 Dose: 1,000 mg Methylprednisolone (Solu-Medrol) 40 mg IVP Q8 [facility] Last Admin: 04/24/18 05:19 Dose: 40 mg Metoprolol Tartrate (Lopressor) 5 mg IVP Q6 PRN PRN Reason: elevated blood pressure Last Admin: 03/31/18 06:09 Dose: 5 mg Metoprolol Tartrate (Lopressor) 25 mg PO BID [facility] Last Admin: 04/23/18 17:58 Dose: Not Given Pantoprazole Sodium (Protonix Susp) 40 mg PO DAILY [facility] Last Admin: 04/23/18 09:29 Dose: 40 mg Rosuvastatin Calcium (Crestor) 10 mg PO HS [facility] Last Admin: 04/23/18 21:49 Dose: 10 mg Sitagliptin Phosphate (Januvia) 100 mg PO DAILY [facility] Last Admin: 04/23/18 09:29 Dose: 100 mg Zolpidem Tartrate (Ambien) 5 mg PO HS PRN PRN Reason: Insomnia Last Admin: 04/20/18 22:00 Dose: 5 mg - Labs Labs: 04/24/18 07:02 04/23/18 07:00 PT 12.9 SECONDS (9.7-12.2) H 03/21/18 04:41 INR 1.2 03/21/18 04:41 APTT 51 SECONDS (21-34) H 03/24/18 06:35
[2018-04-24] MEDS: (Novolog) Insulin Aspart, Recombinant 100 u/ml 10 ml vial SC SCH ×7 (08:22→21:11)
[2018-04-24 09:06] VITALS: O2SAT 50
[2018-04-24 09:08] LABS: ANISOCYTOSIS SLIGHT; BANDS 3 % (0-2); HYPOCHROMIC SLIGHT; LARGE PLATELETS PRESENT; LYMPHOCYTE 3 % (20-40); MONOCYTE 4 % (0-10); NEUTROPHIL 90 % (50-75); PLATELET ESTIMATE NORMAL (NORMAL); POLYCHROMIC SLIGHT; TOTAL CELLS COUNTED 100
[2018-04-24] MEDS: Pantoprazole 40 mg Susp UD PO SCH (09:46)
[2018-04-24 09:57] LABS: ALB/GLOB RATIO 0.9 (1.0-2.1); ALBUMIN 2.8 g/dL (3.5-5.0); CALCIUM 8.6 mg/dl (8.6-10.4)
[2018-04-24 20:15] VITALS: RESP 30
[2018-04-25 01:12] VITALS: BP 114/78; PULSE 95; TEMP 97.5
--- NOTE | 2018-04-25 04:21 | CP.PCM.PRO ---
Pronouncement of Note - Clinical Findings Physical Exam: No Response Verbal/Painful Stimuli, Absent Peripheral Puls es{Carotid & Femoral}, Absent Heart & Breath Sounds, No Pupillary Light Reflex, No Corneal Reflex, Pupils Fixed & Dilated, Absence of Vital Signs - Pronouncement Time Time of Pronouncement of : 04:06 - Notifications Pronouncement Notifications: Family Notified, Atending Notified Mixer Attendant Notified: No - Autopsy Autopsy Requested: No [place] [id number]
--- NOTE | 2018-04-25 07:46 | CP.PCM.DIS ---
<Rachel Moore - Last Filed: 04/25/18 08:18> Provider - Provider Date of Admission: 03/19/18 20:18 Attending physician: José Luis Sorensen DO Consults: 03/19/18 18:25 Pulmonology Consult Routine Comment: Consulting Provider: Jonathan Salazar Consulting Physician: Jonathan Salazar Reason for Consult: pulm fibrosis, worsening SOB 03/19/18 18:57 Critical Care Consult Routine Comment: Consulting Provider: Juan Luis Gonzáles Consulting Physician: Juan Luis Gonzáles Reason for Consult: Code Blue 03/19/18 18:59 Cardiology Consult Routine Comment: Consulting Provider: Davian Pizarro Consulting Physician: Davian Pizarro Reason for Consult: Code blue, ROSC 03/19/18 23:36 Nursing Referral for Palliative Care Routine Comment: Physician Instructions: see pt Reason For Exam: palliative score 5 03/20/18 00:00 Inpatient CORRECTIONAL FACILITY NURSE Core Measures Referral Routine Comment: Physician Instructions: Reason For Exam: chest pain 03/20/18 14:52 Physician Consult Routine Comment: Consulting Provider: Bharati Menjivar Consulting Physician: Bharati Menjivar Reason for Consult: Unresponsive/posible anoxic brain injury 03/21/18 07:36 Physician Consult Routine Comment: Consulting Provider: Raymon Jacques Consulting Physician: Raymon Jacques Reason for Consult: Acute renal failure 03/21/18 07:39 Physician Consult Routine Comment: Consulting Provider: Rizwana Reddy Consulting Physician: Rizwana Reddy Reason for Consult: cardiac arrest,pul fibrosis,leukocytosis 03/25/18 09:49 General Surgery Consult Routine Comment: Consulting Provider: Ayden Morales Consulting Physician: Ayden Morales Reason for Consult: peg tube, patient AMS 03/29/18 10:18 Palliative Care Consult Routine Comment: Consulting Provider: Jessica Valdez Physician Instructions: Reason For Exam: goals of care 04/06/18 16:10 Wound Care [Nursing Referral for Wound Care] Routine Comment: Physician Instructions: Reason For Exam: Redness around GT site. Time Spent in preparation of Discharge (in minutes): 20 Diagnosis - Discharge Diagnosis (1) Respiratory failure Status: Acute (2) Cardiac arrest Status: Acute (3) Pulmonary fibrosis Status: Chronic Hospital Course - Lab Results Lab Results: Micro Results 03/30/18 17:18 Blood Blood Culture - Final NO GROWTH AFTER 5 DAYS 03/30/18 17:18 Blood Gram Stain - Final TEST NOT PERFORMED 03/30/18 15:41 Blood Blood Culture - Final NO GROWTH AFTER 5 DAYS 03/30/18 15:41 Blood Gram Stain - Final TEST NOT PERFORMED 03/30/18 15:41 Urine,Catheterized Urine Culture - Final No Growth (<1,000 CFU/ML) 03/28/18 00:35 Naris MRSA Culture - Final MRSA NOT DETECTED 03/25/18 13:21 Urine,Mevlin Urine Culture - Final No Growth (<1,000 CFU/ML) 03/19/18 20:30 Blood Blood Culture - Final NO GROWTH AFTER 5 DAYS 03/19/18 20:30 Blood Gram Stain - Final TEST NOT PERFORMED 03/19/18 21:10 Blood Blood Culture - Final NO GROWTH AFTER 5 DAYS 03/19/18 21:10 Blood Gram Stain - Final TEST NOT PERFORMED 03/19/18 07:27 Trachasp Gram Stain - Final 03/19/18 07:27 Trachasp Sputum Culture - Final NORMAL ORAL VALDO 03/19/18 01:54 Nose MRSA Culture (Admit) - Final MRSA NOT DETECTED 03/19/18 01:54 Urine Urine Culture - Final No Growth (<1,000 CFU/ML) Most Recent Lab Values WBC 11.8 K/uL (4.8-10.8) H 04/24/18 07:02 RBC 3.94 Mil/uL (4.40-5.90) L 04/24/18 07:02 Hgb 11.6 g/dL (12.0-18.0) L 04/24/18 07:02 Hct 35.4 % (35.0-51.0) 04/24/18 07:02 MCV 89.9 fL (80.0-94.0) 04/24/18 07:02 MCH 29.6 pg (27.0-31.0) 04/24/18 07:02 MCHC 32.9 g/dL (33.0-37.0) L 04/24/18 07:02 RDW 14.3 % (11.5-14.5) 04/24/18 07:02 Plt Count 244 K/uL (130-400) 04/24/18 07:02 MPV 10.3 fL (7.2-11.7) 04/24/18 07:02 Neut % (Auto) 92.9 % (50.0-75.0) H 04/24/18 07:02 Lymph % (Auto) 3.9 % (20.0-40.0) L 04/24/18 07:02 [place] % (Auto) 3.1 % (0.0-10.0) 04/24/18 07:02 Eos % (Auto) 0.0 % (0.0-4.0) 04/24/18 07:02 Baso % (Auto) 0.1 % (0.0-2.0) 04/24/18 07:02 Neut # (Auto) 10.9 K/uL (1.8-7.0) H 04/24/18 07:02 Lymph # (Auto) 0.5 K/uL (1.0-4.3) L 04/24/18 07:02 [place] # (Auto) 0.4 K/uL (0.0-0.8) 04/24/18 07:02 Eos # (Auto) 0.0 K/uL (0.0-0.7) 04/24/18 07:02 Baso # (Auto) 0.0 K/uL (0.0-0.2) 04/24/18 07:02 Neutrophils % (Manual) 90 % (50-75) H 04/24/18 07:02 Band Neutrophils % 3 % (0-2) H 04/24/18 07:02 Lymphocytes % (Manual) 3 % (20-40) L 04/24/18 07:02 Reactive Lymphs % 3 % (0-0) H 04/17/18 10:50 Monocytes % (Manual) 4 % (0-10) 04/24/18 07:02 Eosinophils % (Manual) 1 % (0-4) 04/22/18 08:55 Metamyelocytes % 1 % (0-0) H 04/17/18 10:50 Myelocytes % 1 % (0-0) H 04/13/18 11:28 Nucleated RBC % 1 % (0-0) H 04/22/18 08:55 Toxic Granulation Present 04/11/18 08:52 Platelet Estimate Normal (NORMAL) 04/24/18 07:02 Plt Clumps, EDTA 04/22/18 08:55 Large Platelets Present 04/24/18 07:02 Giant Platelets Present 04/22/18 08:55 RBC Morphology Normal 04/22/18 08:55 Polychromasia Slight 04/24/18 07:02 Hypochromasia (manual) Slight 04/24/18 07:02 Poikilocytosis (manual Slight 04/23/18 07:00 Anisocytosis (manual) Slight 04/24/18 07:02 Macrocytosis (manual) Slight 04/11/18 08:52 Target Cells Slight 04/19/18 06:05 Tear Drop Cells Slight 04/05/18 06:59 Ovalocytes Slight 04/08/18 07:34 ESR 30 mm/hr (0-15) H 03/20/18 05:49 PT 12.9 SECONDS (9.7-12.2) H 03/21/18 04:41 INR 1.2 03/21/18 04:41 APTT 51 SECONDS (21-34) H 03/24/18 06:35 Puncture Site Rba 04/22/18 18:20 pCO2 33 mm/Hg (35-45) L 04/22/18 18:20 pO2 56 mm/Hg (80-100) L 04/22/18 18:20 HCO3 28.8 mmol/L (21-28) H 04/22/18 18:20 ABG pH 7.53 (7.35-7.45) H 04/22/18 18:20 ABG Total CO2 28.6 mmol/L (22-28) H 04/22/18 18:20 ABG O2 Saturation 92.8 % (95-98) L 04/22/18 18:20 ABG Base Excess 5.1 mmol/L (-2.0-3.0) H 04/22/18 18:20 ABG Hemoglobin 9.8 g/dL (11.7-17.4) L 04/22/18 12:13 ABG Carboxyhemoglobin 2.9 % (0.5-1.5) H 04/22/18 12:13 POC ABG HHb (Measured) 4.0 % (0.0-5.0) 04/22/18 12:13 ABG Methemoglobin 1.2 % (0.0-3.0) 04/22/18 12:13 Bran Test Pos 04/22/18 18:20 ABG Potassium 3.9 mmol/L (3.6-5.2) 04/22/18 18:20 VBG pH 7.32 (7.32-7.43) 03/24/18 08:39 VBG pCO2 35 mmHg (40-60) L 03/24/18 08:39 VBG HCO3 18.8 mmol/L 03/24/18 08:39 VBG Total CO2 19.1 mmol/L (22-28) L 03/24/18 08:39 VBG O2 Sat (Calc) 85.7 % (40-65) H 03/24/18 08:39 VBG Base Excess -7.3 mmol/L (0.0-2.0) L 03/24/18 08:39 VBG Potassium 2.4 mmol/L (3.6-5.2) L* 03/24/18 08:39 A-a O2 Difference 40.0 mm/Hg 03/24/18 05:18 Respiratory Index 0.2 03/24/18 05:18 Hgb O2 Saturation 92.0 % (95.0-98.0) L 04/22/18 12:13 Sodium 141.0 mmol/l (132-148) 04/22/18 18:20 Chloride 106.0 mmol/L (98-107) 04/22/18 18:20 Glucose 410 mg/dl (75-110) H* D 04/22/18 18:20 Lactate 2.2 mmol/L (0.7-2.1) H 04/22/18 18:20 Liter Flow 5.0 04/22/18 18:20 Vent Mode Prvc 03/24/18 05:18 Mechanical Rate 20 03/24/18 05:18 FiO2 40.0 % 03/24/18 05:18 Tidal Volume 500 03/24/18 05:18 PEEP 5 03/24/18 05:18 Crit Value Called To Mary Ann tapia rn 04/22/18 18:20 Crit Value Called By Temo 04/22/18 18:20 Crit Value Read Back Y 04/22/18 18:20 Blood Gas Notified Time 1823 04/22/18 18:20 Sodium 136 mmol/L (132-148) 04/24/18 07:02 Potassium 4.1 mmol/L (3.6-5.2) 04/24/18 07:02 Chloride 101 mmol/L (98-107) 04/24/18 07:02 Carbon Dioxide 27 mmol/L (22-30) 04/24/18 07:02 Anion Gap 12 (10-20) 04/24/18 07:02 BUN 73 mg/dL (9-20) H 04/24/18 07:02 Creatinine 1.5 mg/dL (0.8-1.5) 04/24/18 07:02 Est GFR ( Amer) 57 04/24/18 07:02 Est GFR (Non-Af Amer) 47 04/24/18 07:02 POC Glucose (mg/dL) 125 mg/dL (65-110) H 04/24/18 20:56 Random Glucose 277 mg/dL (75-110) H D 04/24/18 07:02 Hemoglobin A1c 7.4 % (4.2-6.5) H 03/20/18 05:49 Calcium 8.6 mg/dl (8.6-10.4) 04/24/18 07:02 Phosphorus 5.0 mg/dL (2.5-4.5) H 04/24/18 07:02 Magnesium 2.3 mg/dL (1.6-2.3) 04/24/18 07:02 Total Bilirubin 0.5 mg/dL (0.2-1.3) 04/24/18 07:02 AST 31 U/L (17-59) 04/24/18 07:02 ALT 26 U/L (21-72) 04/24/18 07:02 Alkaline Phosphatase 197 U/L (38-126) H 04/24/18 07:02 Total Creatine Kinase 557 U/L (55-170) H 03/20/18 05:49 CK-MB (Mass) 16.0 ng/mL (0.0-3.38) H 03/20/18 05:49 Troponin I 1.1500 ng/mL (0.00-0.120) H* 03/21/18 08:50 Total Protein 6.0 g/dL (6.3-8.3) L 04/24/18 07:02 Albumin 2.8 g/dL (3.5-5.0) L 04/24/18 07:02 Globulin 3.2 gm/dL (2.2-3.9) 04/24/18 07:02 Albumin/Globulin Ratio 0.9 (1.0-2.1) L 04/24/18 07:02 Triglycerides 115 mg/dL (0-149) D 03/24/18 06:35 Cholesterol 181 mg/dL (0-199) 03/24/18 06:35 LDL Cholesterol Direct 145 mg/dL (0-129) H 03/24/18 06:35 HDL Cholesterol 32 mg/dL (30-70) 03/24/18 06:35 Procalcitonin 1.86 NG/ML (0.19-0.49) H 03/20/18 10:18 TSH 3rd Generation 0.60 mIU/L (0.46-4.68) 03/20/18 10:18 Arterial Blood Potassium 3.9 mmol/L (3.6-5.2) 04/22/18 18:20 Venous Blood Potassium 2.4 mmol/L (3.6-5.2) L* 03/24/18 08:39 Urine Color Yellow (YELLOW) 03/25/18 13:21 Urine Clarity Clear (Clear) 03/25/18 13:21 Urine pH 5.0 (5.0-8.0) 03/25/18 13:21 Ur Specific [place] 1.024 (1.003-1.030) 03/25/18 13:21 Urine Protein 1+ mg/dL (NEGATIVE) H 03/25/18 13:21 Urine Glucose (UA) 1+ mg/dL (Normal) H 03/25/18 13:21 Urine Ketones Negative mg/dL (NEGATIVE) 03/25/18 13:21 Urine Blood 1+ (NEGATIVE) H 03/25/18 13:21 Urine Nitrate Negative (NEGATIVE) 03/25/18 13:21 Urine Bilirubin Negative (NEGATIVE) 03/25/18 13:21 Urine Urobilinogen Normal mg/dL (0.2-1.0) 03/25/18 13:21 Ur Leukocyte Esterase Neg Asher/uL (Negative) 03/25/18 13:21 Urine WBC (Auto) 3 /hpf (0-5) 03/25/18 13:21 Urine RBC (Auto) 2 /hpf (0-3) 03/25/18 13:21 Ur Squamous Epith Cells 1 /hpf (0-5) 03/21/18 16:49 Amorphous Sediment Moderate /ul (<OCC) H 03/21/18 16:49 Urine Bacteria Occ (<OCC) H 03/20/18 05:55 Granular Casts (Auto) 1-3 /lpf (0-1) 03/21/18 16:49 Ur Random Sodium 42 mmol/L 03/21/18 16:49 Urine Opiates Screen Negative (NEGATIVE) 03/20/18 10:18 Urine Methadone Screen Negative (NEGATIVE) 03/20/18 10:18 Ur Barbiturates Screen Negative (NEGATIVE) 03/20/18 10:18 Ur Phencyclidine Scrn Negative (NEGATIVE) 03/20/18 10:18 Ur Amphetamines Screen Negative (NEGATIVE) 03/20/18 10:18 U Benzodiazepines Scrn Negative (NEGATIVE) 03/20/18 10:18 U Oth Cocaine Metabols Negative (NEGATIVE) 03/20/18 10:18 U Cannabinoids Screen Negative (NEGATIVE) 03/20/18 10:18 Alcohol, Quantitative < 10 mg/dl (0-10) 03/20/18 10:18 Rheumatoid Factor IgG <5 U (<=6) 03/20/18 08:24 Rheumatoid Factor IgA <5 U (<=6) 03/20/18 08:24 Rheumatoid Factor IgM <5 U (<=6) 03/20/18 08:24 JENNIFER Nuclear Membr Pat Negative (Negative) 03/20/18 08:24 Influenza Type A Ab 1:32 titer (<1:8) H 03/20/18 10:18 Influenza Type B Ab <1:8 titer (<1:8) 03/20/18 10:18 Ur L.pneumophila Ag Negative (NEGATIVE) 03/20/18 10:18 Mycoplasma pneumon IgM Negative (NEGATIVE) 03/20/18 10:18 Ur Strep pneumoniae Ag Not detected (Not Detected) 03/20/18 10:18 - Hospital Course Hospital Course: Hospital course included evaluation and treatment of Pulmonary Fibrosis, Cardiac Arrest, and Respiratory Failure. Initial complaint included SOB, however pt sustained cardiac arrest on 03/19/18; initial rhythm asystole, Epi x 3 given, went into VF/VT requiring shock and Amiodarone 300mg. Elevated troponin, EKG LBBB(old). Pt transferred to ICU care. Echo: preserved LV function, anteroseptal hypokinesis. Cardiac [place] [facility] on 03/24/18: non obstructive CAD. Cardiology consulted Dr. Pizarro, Dr. Cotton, Dr. Gonsalves. Pt intubated under ICU management. PEG tube placed AMS 2/2 Encephalopathy vs seizures vs anoxic brain injury. Head CT (03/19/18): 9x11mm Right middle cerebral artery aneurysm. Head CT (03/22/18): Mild generalized volume loss. Previously noted right MCA aneurysm. Neurology, Dr. Menjivar and Dr. Jay consulted. 24h EEG 03/29-03/30: severe encepholopathy/coma state. No epileptiform discharges but it does not rule out seizure disorder. Pulmonary fibrosis: CT chest: centrilobular emphysema and upper lobe pulmonary fibrosis. Pulmonology, Dr. Salazar consulted. Treated with Duonebs, O2 via NC, BiPAP, Vapotherm, Solumedrol. Pt sustained periods of improvement in oxygenation, and mentation. Pt able to tolerate regular feeding, off tube feeds. Oxygenation switched according to needs. Family planning return to [facility] with patient. Unfortunately, respiratory status worsened. Patient unable to maintain saturation on NC, alternating between Vapotherm and BiPAP. Pt became increasingly restless. Patient 2/2 respiratory failure on 04/25/18 with family in room. HPI on admission: "Mr. Mejia is a 67 year old [place] male PMH HTN, DM, pulm fibrosis came in for 2 months of SOB worsening over the last week. He would have come in sooner but only regained [facility] today. He is a known patient to the Clinic, but preferred to come to through the ED. Denies cough, fever, chills, nausea, vomiting, diarrhea. He can only exert himself for 2 blocks at a time and has SOB on exertion. After interview was over around 1819, patient status changed. Prior to transport to the med/surg floor, patient coded in the ED at 1837. He was noted to be a wide complex VTach before becoming pulseless and CPR initiated. He was shocked at 200, had 4 doses of epi, and 300 bolus of amiodarone. Patient admission switched to ICU." Discharge Exam - Head Exam Head Exam: ATRAUMATIC, NORMAL INSPECTION, NORMOCEPHALIC - Additional Findings Additional findings: At expiration: No corneal reflex, no gag reflex, no response to painful stimuli Cardiac sounds absent upon auscultation Breath sounds absent Femoral/carotid pulses absent Discharge Plan - Follow Up Plan Condition: Disposition: WITH WITHOUT AUTOPSY <FranchescaJosé Luis Henrik - Last Filed: 04/25/18 08:46> Provider - Provider Date of Admission: 03/19/18 20:18 Attending physician: José Luis Sorensen DO Consults: 03/19/18 18:25 Pulmonology Consult Routine Comment: Consulting Provider: Jonathan Salazar Consulting Physician: Jonathan Salazar Reason for Consult: pulm fibrosis, worsening SOB 03/19/18 18:57 Critical Care Consult Routine Comment: Consulting Provider: Juan Luis Gonzáles Consulting Physician: Juan Luis Gonzáles Reason for Consult: Code Blue 03/19/18 18:59 Cardiology Consult Routine Comment: Consulting Provider: Davian Pizarro Consulting Physician: Davian Pizarro Reason for Consult: Code blue, ROSC 03/19/18 23:36 Nursing Referral for Palliative Care Routine Comment: Physician Instructions: see pt Reason For Exam: palliative score 5 03/20/18 00:00 Inpatient CORRECTIONAL FACILITY NURSE Core Measures Referral Routine Comment: Physician Instructions: Reason For Exam: chest pain 03/20/18 14:52 Physician Consult Routine Comment: Consulting Provider: Bharati Menjivar Consulting Physician: Bharati Menjivar Reason for Consult: Unresponsive/posible anoxic brain injury 03/21/18 07:36 Physician Consult Routine Comment: Consulting Provider: Raymon Jacques Consulting Physician: Raymon Jacques Reason for Consult: Acute renal failure 03/21/18 07:39 Physician Consult Routine Comment: Consulting Provider: Rizwana Reddy Consulting Physician: Rizwana Reddy Reason for Consult: cardiac arrest,pul fibrosis,leukocytosis 03/25/18 09:49 General Surgery Consult Routine Comment: Consulting Provider: Ayden Morales Consulting Physician: Ayden Morales Reason for Consult: peg tube, patient AMS 03/29/18 10:18 Palliative Care Consult Routine Comment: Consulting Provider: Jessica Valdez Physician Instructions: Reason For Exam: goals of care 04/06/18 16:10 Wound Care [Nursing Referral for Wound Care] Routine Comment: Physician Instructions: Reason For Exam: Redness around GT site. Hospital Course - Lab Results Lab Results: Micro Results 03/30/18 17:18 Blood Blood Culture - Final NO GROWTH AFTER 5 DAYS 03/30/18 17:18 Blood Gram Stain - Final TEST NOT PERFORMED 03/30/18 15:41 Blood Blood Culture - Final NO GROWTH AFTER 5 DAYS 03/30/18 15:41 Blood Gram Stain - Final TEST NOT PERFORMED 03/30/18 15:41 Urine,Catheterized Urine Culture - Final No Growth (<1,000 CFU/ML) 03/28/18 00:35 Naris MRSA Culture - Final MRSA NOT DETECTED 03/25/18 13:21 Urine,Melvin Urine Culture - Final No Growth (<1,000 CFU/ML) 03/19/18 20:30 Blood Blood Culture - Final NO GROWTH AFTER 5 DAYS 03/19/18 20:30 Blood Gram Stain - Final TEST NOT PERFORMED 03/19/18 21:10 Blood Blood Culture - Final NO GROWTH AFTER 5 DAYS 03/19/18 21:10 Blood Gram Stain - Final TEST NOT PERFORMED 03/19/18 07:27 Trachasp Gram Stain - Final 03/19/18 07:27 Trachasp Sputum Culture - Final NORMAL ORAL VALDO 03/19/18 01:54 Nose MRSA Culture (Admit) - Final MRSA NOT DETECTED 03/19/18 01:54 Urine Urine Culture - Final No Growth (<1,000 CFU/ML) Most Recent Lab Values WBC 11.8 K/uL (4.8-10.8) H 04/24/18 07:02 RBC 3.94 Mil/uL (4.40-5.90) L 04/24/18 07:02 Hgb 11.6 g/dL (12.0-18.0) L 04/24/18 07:02 Hct 35.4 % (35.0-51.0) 04/24/18 07:02 MCV 89.9 fL (80.0-94.0) 04/24/18 07:02 MCH 29.6 pg (27.0-31.0) 04/24/18 07:02 MCHC 32.9 g/dL (33.0-37.0) L 04/24/18 07:02 RDW 14.3 % (11.5-14.5) 04/24/18 07:02 Plt Count 244 K/uL (130-400) 04/24/18 07:02 MPV 10.3 fL (7.2-11.7) 04/24/18 07:02 Neut % (Auto) 92.9 % (50.0-75.0) H 04/24/18 07:02 Lymph % (Auto) 3.9 % (20.0-40.0) L 04/24/18 07:02 [place] % (Auto) 3.1 % (0.0-10.0) 04/24/18 07:02 Eos % (Auto) 0.0 % (0.0-4.0) 04/24/18 07:02 Baso % (Auto) 0.1 % (0.0-2.0) 04/24/18 07:02 Neut # (Auto) 10.9 K/uL (1.8-7.0) H 04/24/18 07:02 Lymph # (Auto) 0.5 K/uL (1.0-4.3) L 04/24/18 07:02 [place] # (Auto) 0.4 K/uL (0.0-0.8) 04/24/18 07:02 Eos # (Auto) 0.0 K/uL (0.0-0.7) 04/24/18 07:02 Baso # (Auto) 0.0 K/uL (0.0-0.2) 04/24/18 07:02 Neutrophils % (Manual) 90 % (50-75) H 04/24/18 07:02 Band Neutrophils % 3 % (0-2) H 04/24/18 07:02 Lymphocytes % (Manual) 3 % (20-40) L 04/24/18 07:02 Reactive Lymphs % 3 % (0-0) H 04/17/18 10:50 Monocytes % (Manual) 4 % (0-10) 04/24/18 07:02 Eosinophils % (Manual) 1 % (0-4) 04/22/18 08:55 Metamyelocytes % 1 % (0-0) H 04/17/18 10:50 Myelocytes % 1 % (0-0) H 04/13/18 11:28 Nucleated RBC % 1 % (0-0) H 04/22/18 08:55 Toxic Granulation Present 04/11/18 08:52 Platelet Estimate Normal (NORMAL) 04/24/18 07:02 Plt Clumps, EDTA 04/22/18 08:55 Large Platelets Present 04/24/18 07:02 Giant Platelets Present 04/22/18 08:55 RBC Morphology Normal 04/22/18 08:55 Polychromasia Slight 04/24/18 07:02 Hypochromasia (manual) Slight 04/24/18 07:02 Poikilocytosis (manual Slight 04/23/18 07:00 Anisocytosis (manual) Slight 04/24/18 07:02 Macrocytosis (manual) Slight 04/11/18 08:52 Target Cells Slight 04/19/18 06:05 Tear Drop Cells Slight 04/05/18 06:59 Ovalocytes Slight 04/08/18 07:34 ESR 30 mm/hr (0-15) H 03/20/18 05:49 PT 12.9 SECONDS (9.7-12.2) H 03/21/18 04:41 INR 1.2 03/21/18 04:41 APTT 51 SECONDS (21-34) H 03/24/18 06:35 Puncture Site Rba 04/22/18 18:20 pCO2 33 mm/Hg (35-45) L 04/22/18 18:20 pO2 56 mm/Hg (80-100) L 04/22/18 18:20 HCO3 28.8 mmol/L (21-28) H 04/22/18 18:20 ABG pH 7.53 (7.35-7.45) H 04/22/18 18:20 ABG Total CO2 28.6 mmol/L (22-28) H 04/22/18 18:20 ABG O2 Saturation 92.8 % (95-98) L 04/22/18 18:20 ABG Base Excess 5.1 mmol/L (-2.0-3.0) H 04/22/18 18:20 ABG Hemoglobin 9.8 g/dL (11.7-17.4) L 04/22/18 12:13 ABG Carboxyhemoglobin 2.9 % (0.5-1.5) H 04/22/18 12:13 POC ABG HHb (Measured) 4.0 % (0.0-5.0) 04/22/18 12:13 ABG Methemoglobin 1.2 % (0.0-3.0) 04/22/18 12:13 Bran Test Pos 04/22/18 18:20 ABG Potassium 3.9 mmol/L (3.6-5.2) 04/22/18 18:20 VBG pH 7.32 (7.32-7.43) 03/24/18 08:39 VBG pCO2 35 mmHg (40-60) L 03/24/18 08:39 VBG HCO3 18.8 mmol/L 03/24/18 08:39 VBG Total CO2 19.1 mmol/L (22-28) L 03/24/18 08:39 VBG O2 Sat (Calc) 85.7 % (40-65) H 03/24/18 08:39 VBG Base Excess -7.3 mmol/L (0.0-2.0) L 03/24/18 08:39 VBG Potassium 2.4 mmol/L (3.6-5.2) L* 03/24/18 08:39 A-a O2 Difference 40.0 mm/Hg 03/24/18 05:18 Respiratory Index 0.2 03/24/18 05:18 Hgb O2 Saturation 92.0 % (95.0-98.0) L 04/22/18 12:13 Sodium 141.0 mmol/l (132-148) 04/22/18 18:20 Chloride 106.0 mmol/L (98-107) 04/22/18 18:20 Glucose 410 mg/dl (75-110) H* D 04/22/18 18:20 Lactate 2.2 mmol/L (0.7-2.1) H 04/22/18 18:20 Liter Flow 5.0 04/22/18 18:20 Vent Mode Prvc 03/24/18 05:18 Mechanical Rate 20 03/24/18 05:18 FiO2 40.0 % 03/24/18 05:18 Tidal Volume 500 03/24/18 05:18 PEEP 5 03/24/18 05:18 Crit Value Called To Mary Ann tapia rn 04/22/18 18:20 Crit Value Called By Temo 04/22/18 18:20 Crit Value Read Back Y 04/22/18 18:20 Blood Gas Notified Time 18204/22/18 18:20 Sodium 136 mmol/L (132-148) 04/24/18 07:02 Potassium 4.1 mmol/L (3.6-5.2) 04/24/18 07:02 Chloride 101 mmol/L (98-107) 04/24/18 07:02 Carbon Dioxide 27 mmol/L (22-30) 04/24/18 07:02 Anion Gap 12 (10-20) 04/24/18 07:02 BUN 73 mg/dL (9-20) H 04/24/18 07:02 Creatinine 1.5 mg/dL (0.8-1.5) 04/24/18 07:02 Est GFR ( Amer) 57 04/24/18 07:02 Est GFR (Non-Af Amer) 47 04/24/18 07:02 POC Glucose (mg/dL) 125 mg/dL (65-110) H 04/24/18 20:56 Random Glucose 277 mg/dL (75-110) H D 04/24/18 07:02 Hemoglobin A1c 7.4 % (4.2-6.5) H 03/20/18 05:49 Calcium 8.6 mg/dl (8.6-10.4) 04/24/18 07:02 Phosphorus 5.0 mg/dL (2.5-4.5) H 04/24/18 07:02 Magnesium 2.3 mg/dL (1.6-2.3) 04/24/18 07:02 Total Bilirubin 0.5 mg/dL (0.2-1.3) 04/24/18 07:02 AST 31 U/L (17-59) 04/24/18 07:02 ALT 26 U/L (21-72) 04/24/18 07:02 Alkaline Phosphatase 197 U/L (38-126) H 04/24/18 07:02 Total Creatine Kinase 557 U/L (55-170) H 03/20/18 05:49 CK-MB (Mass) 16.0 ng/mL (0.0-3.38) H 03/20/18 05:49 Troponin I 1.1500 ng/mL (0.00-0.120) H* 03/21/18 08:50 Total Protein 6.0 g/dL (6.3-8.3) L 04/24/18 07:02 Albumin 2.8 g/dL (3.5-5.0) L 04/24/18 07:02 Globulin 3.2 gm/dL (2.2-3.9) 04/24/18 07:02 Albumin/Globulin Ratio 0.9 (1.0-2.1) L 04/24/18 07:02 Triglycerides 115 mg/dL (0-149) D 03/24/18 06:35 Cholesterol 181 mg/dL (0-199) 03/24/18 06:35 LDL Cholesterol Direct 145 mg/dL (0-129) H 03/24/18 06:35 HDL Cholesterol 32 mg/dL (30-70) 03/24/18 06:35 Procalcitonin 1.86 NG/ML (0.19-0.49) H 03/20/18 10:18 TSH 3rd Generation 0.60 mIU/L (0.46-4.68) 03/20/18 10:18 Arterial Blood Potassium 3.9 mmol/L (3.6-5.2) 04/22/18 18:20 Venous Blood Potassium 2.4 mmol/L (3.6-5.2) L* 03/24/18 08:39 Urine Color Yellow (YELLOW) 03/25/18 13:21 Urine Clarity Clear (Clear) 03/25/18 13:21 Urine pH 5.0 (5.0-8.0) 03/25/18 13:21 Ur Specific [place] 1.024 (1.003-1.030) 03/25/18 13:21 Urine Protein 1+ mg/dL (NEGATIVE) H 03/25/18 13:21 Urine Glucose (UA) 1+ mg/dL (Normal) H 03/25/18 13:21 Urine Ketones Negative mg/dL (NEGATIVE) 03/25/18 13:21 Urine Blood 1+ (NEGATIVE) H 03/25/18 13:21 Urine Nitrate Negative (NEGATIVE) 03/25/18 13:21 Urine Bilirubin Negative (NEGATIVE) 03/25/18 13:21 Urine Urobilinogen Normal mg/dL (0.2-1.0) 03/25/18 13:21 Ur Leukocyte Esterase Neg Asher/uL (Negative) 03/25/18 13:21 Urine WBC (Auto) 3 /hpf (0-5) 03/25/18 13:21 Urine RBC (Auto) 2 /hpf (0-3) 03/25/18 13:21 Ur Squamous Epith Cells 1 /hpf (0-5) 03/21/18 16:49 Amorphous Sediment Moderate /ul (<OCC) H 03/21/18 16:49 Urine Bacteria Occ (<OCC) H 03/20/18 05:55 Granular Casts (Auto) 1-3 /lpf (0-1) 03/21/18 16:49 Ur Random Sodium 42 mmol/L 03/21/18 16:49 Urine Opiates Screen Negative (NEGATIVE) 03/20/18 10:18 Urine Methadone Screen Negative (NEGATIVE) 03/20/18 10:18 Ur Barbiturates Screen Negative (NEGATIVE) 03/20/18 10:18 Ur Phencyclidine Scrn Negative (NEGATIVE) 03/20/18 10:18 Ur Amphetamines Screen Negative (NEGATIVE) 03/20/18 10:18 U Benzodiazepines Scrn Negative (NEGATIVE) 03/20/18 10:18 U Oth Cocaine Metabols Negative (NEGATIVE) 03/20/18 10:18 U Cannabinoids Screen Negative (NEGATIVE) 03/20/18 10:18 Alcohol, Quantitative < 10 mg/dl (0-10) 03/20/18 10:18 Rheumatoid Factor IgG <5 U (<=6) 03/20/18 08:24 Rheumatoid Factor IgA <5 U (<=6) 03/20/18 08:24 Rheumatoid Factor IgM <5 U (<=6) 03/20/18 08:24 JENNIFER Nuclear Membr Pat Negative (Negative) 03/20/18 08:24 Influenza Type A Ab 1:32 titer (<1:8) H 03/20/18 10:18 Influenza Type B Ab <1:8 titer (<1:8) 03/20/18 10:18 Ur L.pneumophila Ag Negative (NEGATIVE) 03/20/18 10:18 Mycoplasma pneumon IgM Negative (NEGATIVE) 03/20/18 10:18 Ur Strep pneumoniae Ag Not detected (Not Detected) 03/20/18 10:18 Attending/Attestation - Attestation I have personally seen and examined this patient.: Yes I have fully participated in the care of the patient.: Yes I have reviewed all pertinent clinical information, including history, physical exam and plan: Yes Notes (Text): Medical attending: Patient was seen and examined by me. Agree with the above note by the resident Patient early in the morning. I was informed that family was present when patient The [place] EDRS was created and filled out I hope the family will be able to find some closure. José Luis [email or web address] 04/25/18 08:45
== END 2018-04-25 08:00 | DRG 951 ==
LOC: C.ER 11:32 → C.9E 17:48 → C.3T 18:02 → C.9E 18:50 → C.9I 19:36 → OBSVTOIN 20:18 → C.9E 20:21 → C.9I 21:16 → C.6T 03-27 22:06 → C.5S 03-30 00:33 → C.3T 04-06 11:51
PROVIDERS: ADMIT Hospitalist; ATTEND Hospitalist
PROC: 5A1955Z Respiratory Ventilation, Greater than 96 Consecutive Hours (ICD-10-PCS; principal; 2018-03-19)
PROC: 5A12012 Performance of Cardiac Output, Single, Manual (ICD-10-PCS; 2018-03-19)
PROC: 0BH17EZ Insertion of Endotracheal Airway into Trachea, Via Natural or Artificial Opening (ICD-10-PCS; 2018-03-19)
PROC: 5A2204Z Restoration of Cardiac Rhythm, Single (ICD-10-PCS; 2018-03-19)
PROC: 0DH68UZ Insertion of Feeding Device into Stomach, Via Natural or Artificial Opening Endoscopic (ICD-10-PCS; 2018-03-26)
PROC: 3E0G76Z Introduction of Nutritional Substance into Upper GI, Via Natural or Artificial Opening (ICD-10-PCS; 2018-03-27)
DX: J96.91 Respiratory failure, unspecified with hypoxia (principal); I21.4 Non-ST elevation (NSTEMI) myocardial infarction; I49.01 Ventricular fibrillation; G93.1 Anoxic brain damage, not elsewhere classified; J84.10 Pulmonary fibrosis, unspecified; J43.2 Centrilobular emphysema; I47.2 Ventricular tachycardia; I67.1 Cerebral aneurysm, nonruptured; J81.1 Chronic pulmonary edema; N17.9 Acute kidney failure, unspecified; I27.20 Pulmonary hypertension, unspecified; E11.65 Type 2 diabetes mellitus with hyperglycemia; I10 Essential (primary) hypertension; I25.10 Atherosclerotic heart disease of native coronary artery without angina pectoris; I46.9 Cardiac arrest, cause unspecified; I44.7 Left bundle-branch block, unspecified; I77.819 Aortic ectasia, unspecified site; J10.1 Influenza due to other identified influenza virus with other respiratory manifestations; K44.9 Diaphragmatic hernia without obstruction or gangrene; K86.89 Other specified diseases of pancreas; N28.1 Cyst of kidney, acquired; N40.0 Benign prostatic hyperplasia without lower urinary tract symptoms; R56.9 Unspecified convulsions; R13.10 Dysphagia, unspecified; R32 Unspecified urinary incontinence; R15.9 Full incontinence of feces; Z51.5 Encounter for palliative care; Z79.4 Long term (current) use of insulin; Z79.82 Long term (current) use of aspirin; Z79.899 Other long term (current) drug therapy; Z87.891 Personal history of nicotine dependence; Z91.19 Patient's noncompliance with other medical treatment and regimen; Z79.84 Long term (current) use of oral hypoglycemic drugs; S22.32XS Fracture of one rib, left side, sequela